=== PATIENT | male | born 1935 | race Asian ===

== ENCOUNTER 2018-07-23 13:33 | Inpatient (IN) | payer MEDICARE, OTHER ==
[~2018-07-23] VITALS: Ht 167.6 cm; Wt 62.1 kg
[2018-07-23 13:33] VITALS: BP 102/49
[~2018-07-23 13:33] MED LIST: ALLOPURINOL300 MG PO; COLACE100 MG PO; DIOVAN HCT 1601 EACH PO; FLOMAX0.4 MG PO; FLONASE1 SPRAYS; GLUCOPHAGE850 MG PO; JANUVIA100 MG PO; LORATADINE10 MG PO; METOPROLOL SUCC25 MG PO; SIMVASTATIN20 MG PO; UNOBMED; VITAMIN473 ML PO
--- NOTE | 2018-07-23 14:06 | Emergency Room Report ---
History of Present Illness General Chief Complaint: Altered Level of Consciousness Source: Medical Record, EMS Present Illness HPI 82-year-old male, with a history of chronic kidney disease, diabetes, cholelithiasis, presenting with 1 day of lethargy. No history is able to be obtained from patient as he is nonverbal at this time. Unknown mental status, but per notes it seems as if patient was alert and speaking complete sentences in the past. The patient is not following any directions, and nonverbal, not opening his eyes. Vital signs at the shelter are normal. No reported fever or chills. Patient is noted to have a wet cough. Allergies: Coded Allergies: No Known Allergies (Verified , 12/28/06) Patient History Past Medical History: see triage record Past Surgical History: none Pertinent Family History: none Reviewed Nursing Documentation: PMH: Agreed; PSxH: Agreed Nursing Documentation-PMH Past Medical History: No History, Except For Hx Cardiac Problems: No Hx Hypertension: Yes Hx Diabetes: Yes Hx Cancer: No Hx Gastrointestinal Problems: No - dysphagia, g-tube Hx Dialysis: No - CKD Hx Neurological Problems: No Review of Systems All Other Systems: limited - nonverbal Physical Exam Vital Signs Date Time Temp Pulse Resp B/P (MAP) Pulse Ox O2 Delivery O2 Flow Rate FiO2 07/23/18 13:21 97.5 94 18 114/61 95 Room Air Sp02 EP Interpretation: reviewed, normal General Appearance: other - Chronically ill-appearing elderly male, eyes closed , moaning incomprehensible sounds Head: normocephalic, atraumatic Eyes: bilateral eye other - Eyes are closed bilaterally, 1 (pupils are equal reactive ENT: normal ENT inspection, normal pharynx, normal voice, moist mucus membranes Neck: normal inspection, full range of motion, supple Respiratory: other - Satting 100% on room air, not tachypnea, crackles in the left lung base Cardiovascular #1: normal inspection, regular rate, rhythm, normal capillary refill Cardiovascular #2: 2+ radial (R), 2+ radial (L) Gastrointestinal: other - Soft, nondistended, PEG tube in place, nonrigid, no grimace to deep palpation normal bowel sounds Musculoskeletal: other - Full passive range of motion, no signs of trauma Neurologic: other - Moaning incomprehensible sounds, not following commands, good motor tone throughout Psychiatric: other Skin: normal inspection, normal color, no rash, warm/dry, well hydrated, normal turgor Procedures Critical Care Time Critical Care Time 40-45 minutes of CC time 82-year-old male, altered mental status, dehydrated, pneumonia Airway patent. Not hypoxic. PLAN: IV access, labs, lactate, troponin, Blood/Urine Cx, Abx, IVF Anticipate admission to Tele vs. DARIUS CC time also includes review of labs, review of EMR, discussion with family and paperwork from SNF, d/w hospitalist CC could include dosing of pressors, additional Abx CC time does not include procedures Medical Decision Making Diagnostic Impression: Primary Impression: HCAP (healthcare-associated pneumonia) Additional Impressions: Dehydration Anemia ER Course 82-year-old male with altered mental status for one day DDX: Dehydration, electrolyte disturbance, UTI, pneumonia, sepsis from any other infectious cause, stroke, intracranial bleed, ACS Plan: Obtain labs, ua, EKG, CXR CT head ER course: Patient has been monitored during ED stay, HD stable given abx for HCAP after fluids now more awake and alert Disposition: Patient is to be admitted to telemetry D/W hospitalist Dr Springer who is made aware of pt. states to put under Dr Moreno name Please note that this Emergency Department Report was dictated using [employer] weeder technology software, occasionally this can lead to erroneous entry secondary to interpretation by the dictation equipment. EKG Diagnostic Results EP Interpretation: Yes Rate: normal Rhythm: NSR ST Segments: Right bundle-branch block, T-wave inversion V2 ASA given to patient: No Rhythm Strip EP Interpretation: Yes Rate: 85 Rhythm: NSR, no PVCs, no ectopy Chest X-ray CXR: Ordered: Yes 1 view Indication: Altered mental status EP interpretation: Yes Interpretation: L sided infiltrate Impression: L sided infiltrate Electronically signed by Artem Peters MD Laboratory Tests Test 07/23/18 13:50 07/23/18 14:50 White Blood Count 22.3 K/UL (4.8-10.8) *H Red Blood Count 2.83 M/UL (4.70-6.10) L Hemoglobin 9.1 G/DL (14.2-18.0) L Hematocrit 28.3 % (42.0-52.0) L Mean Corpuscular Volume 100 FL (80-99) H Mean Corpuscular Hemoglobin 32.2 PG (27.0-31.0) H Mean Corpuscular Hemoglobin Concent 32.3 G/DL (32.0-36.0) Red Cell Distribution Width 13.3 % (11.6-14.8) Platelet Count 219 K/UL (150-450) Mean Platelet Volume 9.2 FL (6.5-10.1) Neutrophils (%) (Auto) % (45.0-75.0) Lymphocytes (%) (Auto) % (20.0-45.0) Monocytes (%) (Auto) % (1.0-10.0) Eosinophils (%) (Auto) % (0.0-3.0) Basophils (%) (Auto) % (0.0-2.0) Differential Total Cells Counted 100 Neutrophils % (Manual) 81 % (45-75) H Lymphocytes % (Manual) 8 % (20-45) L Monocytes % (Manual) 3 % (1-10) Eosinophils % (Manual) 3 % (0-3) Basophils % (Manual) 0 % (0-2) Band Neutrophils 5 % (0-8) Platelet Estimate Adequate Platelet Morphology Normal Red Blood Cell Morphology Normal Sodium Level 157 MMOL/L (136-145) H Potassium Level 5.1 MMOL/L (3.5-5.1) Chloride Level 117 MMOL/L (98-107) H Carbon Dioxide Level 27 MMOL/L (21-32) Anion Gap 13 mmol/L (5-15) Blood Urea Nitrogen 144 mg/dL (7-18) H Creatinine 3.1 MG/DL (0.55-1.30) H Estimate Glomerular Filtration Rate mL/min (>60) Glucose Level 186 MG/DL (74-106) H Lactic Acid Level 1.20 mmol/L (0.4-2.0) Calcium Level 9.0 MG/DL (8.5-10.1) Total Bilirubin 0.4 MG/DL (0.2-1.0) Aspartate Amino Transferase (AST) 53 U/L (15-37) H Alanine Aminotransferase (ALT) 47 U/L (12-78) Alkaline Phosphatase 156 U/L (46-116) H Total Creatine Kinase 83 U/L (26-308) Troponin I 0.008 ng/mL (0.000-0.056) Pro-B-Type Natriuretic Peptide 266 pg/mL (0-125) H Total Protein 9.9 G/DL (6.4-8.2) H Albumin 2.5 G/DL (3.4-5.0) L Globulin 7.4 g/dL Albumin/Globulin Ratio 0.3 (1.0-2.7) L Urine Color Yellow Urine Appearance Clear Urine pH 7 (4.5-8.0) Urine Specific [place] 1.005 (1.005-1.035) Urine Protein 3+ (NEGATIVE) H Urine Glucose (UA) Negative (NEGATIVE) Urine Ketones Negative (NEGATIVE) Urine Blood 4+ (NEGATIVE) H Urine Nitrite Negative (NEGATIVE) Urine Bilirubin Negative (NEGATIVE) Urine Urobilinogen Normal MG/DL (0.0-1.0) Urine Leukocyte Esterase 1+ (NEGATIVE) H Urine RBC 15-20 /HPF (0 - 0) H Urine WBC 2-4 /HPF (0 - 0) Urine Squamous Epithelial Cells Few /LPF (NONE/OCC) Urine Bacteria Few /HPF (NONE) Urine Hyaline Casts Tntc /LPF (NONE) H Microbiology Date/Time Source Procedure Growth Status 07/23/18 14:50 Nasal Nares Influenza Types A,B Antigen (HENNA) - Final Complete CT/MRI/US Diagnostic Results CT/MRI/US Diagnostic Results : Imaging Test Ordered: CT HEAD Impression Impression: No acute intracranial bleed, mass effect or edema. Moderate atrophy of the brain. Evidence of chronic small vessel disease involving white matter tracts. Last Vital Signs Date Time Temp Pulse Resp B/P (MAP) Pulse Ox O2 Delivery O2 Flow Rate FiO2 07/23/18 13:21 97.5 94 18 114/61 95 Room Air Disposition: ADMITTED INPATIENT Condition: Artem Pulido M.D. Jul 23, 2018 14:06
[2018-07-23 14:21] LABS: HEMATOCRIT 28.3 % (42.0-52.0); HEMOGLOBIN 9.1 G/DL (14.2-18.0); MEAN CORPUSCULAR VOLUME 100 FL (80-99); PLATELET COUNT 219 K/UL (150-450); RED BLOOD COUNT 2.83 M/UL (4.70-6.10); RED CELL DISTRIBUTION WIDTH 13.3 % (11.6-14.8)
[2018-07-23 14:23] LABS: WHITE BLOOD COUNT 22.3 K/UL (4.8-10.8)
--- NOTE | 2018-07-23 14:36 | Diagnostic Imaging Report ---
Indication: Altered mental status Technique: Contiguous 5 mm thick transaxial imaging of the head obtained in a Siemens Sensation [address] scanner. Soft tissue and bone windows generated. Automatic Exposure Control was utilized. Total Dose length Product (DLP): 1386.[address] Dose Index Volume (CTDIvol): 70.38 mGy Comparison: 09/18/2010 Findings: There is moderate prominence of the ventricles, basal cisterns, and cerebral sulci consistent with atrophy. Moderate, nonspecific, white matter hypoattenuation is noted throughout the brain consistent with chronic small vessel disease. There is no midline shift, edema, acute hemorrhage, mass effect, or abnormal extra-axial fluid collections. Bones and extra osseous soft tissues are unremarkable. Impression: No acute intracranial bleed, mass effect or edema. Moderate atrophy of the brain. Evidence of chronic small vessel disease involving white matter tracts. The CT scanner at [facility] is accredited by the [employer] and the scans are performed using dose optimization techniques as appropriate to a performed exam including Automatic Exposure control.
[2018-07-23 14:37] LABS: ANION GAP 13 mmol/L (5-15); BLOOD UREA NITROGEN 144 mg/dL (7-18); CARBON DIOXIDE 27 MMOL/L (21-32); CHLORIDE 117 MMOL/L (98-107); CREATININE 3.1 MG/DL (0.55-1.30); POTASSIUM 5.1 MMOL/L (3.5-5.1); SODIUM 157 MMOL/L (136-145)
[2018-07-23] MEDS ORDERED: Piperacillin/Tazobactam 3.375 GM in NS 55 ML IV ONE (14:45)
[2018-07-23] MEDS ORDERED: Vancomycin 1 GM in NS 275 ML IVPB ONE (14:45)
[2018-07-23 14:50] LABS: ALANINE AMINOTRANSFERASE 47 U/L (12-78); ALBUMIN 2.5 G/DL (3.4-5.0); ALBUMIN/GLOBULIN RATIO 0.3 (1.0-2.7); ALKALINE PHOSPHATASE 156 U/L (46-116); ASPARTATE AMINO TRANSFERASE 53 U/L (15-37); BILIRUBIN,TOTAL 0.4 MG/DL (0.2-1.0); CREATINE KINASE 83 U/L (26-308)
[2018-07-23 15:00] VITALS: BP 116/49
[2018-07-23 15:06] LABS: APPEARANCE,URINE CLEAR; BILIRUBIN, URINE NEGATIVE (NEGATIVE); COLOR,URINE YELLOW; GLUCOSE, URINE (UA) NEGATIVE (NEGATIVE); KETONES,URINE NEGATIVE (NEGATIVE); LEUKOCYTE ESTERASE ,URINE 1+ (NEGATIVE); NITRITE,URINE NEGATIVE (NEGATIVE); PH,URINE 7 (4.5-8.0); PROTEIN,URINE 3+ (NEGATIVE); UROBILINOGEN,URINE NORMAL MG/DL (0.0-1.0)
[2018-07-23] MEDS ORDERED: METOCLOPRA10 MG/10 M ORAL (15:42)
[2018-07-23] MEDS ORDERED: NOVOLOG100 UNIT/3 SUBQ (15:42)
[2018-07-23] MEDS ORDERED: PROTONIX20 MG ORAL (15:42)
[2018-07-23 16:16] VITALS: BP 117/39
--- NOTE | 2018-07-23 16:26 | Diagnostic Imaging Report ---
Indication: Dyspnea Comparison: 08/03/2012 A single view chest radiograph was obtained. Findings: Basilar reticular densities are present left worse than right, chronic in nature and unchanged. Heart size is within normal limits. Bones are osteopenic. Aorta is moderately calcified. IMPRESSION: No acute disease. 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
[2018-07-23 18:22] VITALS: BP 121/50
[2018-07-23 20:31] VITALS: BP 110/56
[2018-07-23] MEDS: NovoLOG Insulin Flexpen SUBQ SCH (22:23)
[2018-07-23] MEDS: Piperacillin/Tazobactam 2.25 GM in D5W 55 ML IVPB SCH (22:24)
[2018-07-23] MEDS: Heparin 5000 units/ml inj SUBQ SCH (23:17)
--- NOTE | 2018-07-23 23:30 | History and Physical Report ---
DATE OF ADMISSION: 07/23/2018 REASON FOR ADMISSION: Altered mental status. HISTORY OF PRESENT ILLNESS: This is a unfortunate 82-year-old gentleman patient of Dr. Ann López that I am covering for, has history of type 2 diabetes mellitus, hypertension, and chronic kidney disease has been brought to the emergency room of [facility] after he was found to have altered mental status. In the emergency room, white count was checked at about 22,000. Also has had elevation of BUN and creatinine in the range of 103.1 and also had a serum sodium of 157. He is not able to give me a very fruitful history, there is nobody with him. He is living in a longterm apparently. PAST MEDICAL HISTORY: Significant for previous gallstone pancreatitis, upper GI bleed, choledocholithiasis, chronic kidney disease, type 2 diabetes, spinal stenosis, rheumatoid arthritis, dysphagia, and underlying dementia. PAST SURGICAL HISTORY: Seems like he had common bile duct dilation and cholecystectomy, also has had surgery for small bowel obstruction. He also has had a G-tube placement. SOCIAL HISTORY: [facility] a [facility]. Smoking or drinking habits are unknown to me. MEDICATIONS: Prior to admission allopurinol 300 mg p.o. daily, docusate 100 mg p.o. b.i.d., Flonase one spray in each nostril daily, loratadine 10 mg p.o. daily, metformin 850 mg p.o. daily, metoclopramide 10 mg p.o. q.8 hours p.r.n., metoprolol 25 mg p.o. daily, pantoprazole 40 mg p.o. daily, simvastatin 20 mg p.o. daily, Januvia 100 mg p.o. daily, Flomax 0.4 mg p.o. daily, valsartan and hydrochlorothiazide 160/12.5 mg p.o. daily. REVIEW OF SYSTEMS: Impossible since he is not able to give me a very fruitful history. PHYSICAL EXAMINATION: GENERAL: This is a very frail looking elderly lying down in the cart of the emergency room. VITAL SIGNS: Blood pressure is 121/50, pulse 77, respirations , temperature HEENT: Head is atraumatic. Eyes, pupils reactive to light. No evidence of papilledema. Ears, canals are clear. Tympanic membrane intact. NECK: Supple. Jugular venous distention is somewhat low. No cervical adenopathies. No thyromegaly. HEART: Regular rhythm. No gallop. LUNGS: Few rhonchi in both bases. ABDOMEN: Supple. Bowel sounds positive. G-tube in place. No hepatosplenomegaly. EXTREMITIES: Lower extremity shows no cyanosis or clubbing. No pedal edema. NEUROLOGICAL: He is somewhat lethargic and obtunded. Moving all 4 extremities nevertheless . LABORATORY DATA: Shows a WBC of 22.3, hemoglobin 9.1, hematocrit 28.3, and platelets of 219, 81% neutrophils, 8% lymphocytes. Sodium 157, potassium 5.1, chloride 117, carbon dioxide 27, BUN 144, creatinine is 3.1. Albumin is 2.5. Alkaline phosphatase is 156. Chest x-ray showing an interstitial infiltrate in the base of the left lung mostly. A urinalysis on him is showing 1+ leukocyte esterase, 2 to 4 wbc's, 15 to 20 rbc's, too numerous to count hyaline casts, 3+ protein. IMPRESSION: 1. Evidence of sepsis with significant leukocytosis, I am suspecting pneumonia, possibly aspiration pneumonia. 2. Acute kidney injury with azotemia due to combination of underlying sepsis plus hypovolemia plus the fact that he has been on an ARB. 3. Severe hypernatremia. 4. Underlying dementia. PLAN: He is going to be admitted to the telemetry floor. We are going to hydrate him with IV fluids, IV antibiotics with vancomycin and Zosyn is in order. We will follow the evolution of the kidney function. Tyrone Brown M.D. DR: Debra JOB#: [id number] CC:
[2018-07-24] VITALS: BP 117/50
[2018-07-24 04:00] VITALS: BP 112/56
[2018-07-24] MEDS: Piperacillin/Tazobactam 2.25 GM in D5W 55 ML IVPB SCH ×3 (05:36→21:01)
[2018-07-24] MEDS: NovoLOG Insulin Flexpen SUBQ SCH ×4 (05:37→20:50)
[2018-07-24 08:00] VITALS: BP 116/50
[2018-07-24 08:29] LABS: HEMATOCRIT 23.1 % (42.0-52.0); HEMOGLOBIN 7.6 G/DL (14.2-18.0); MEAN CORPUSCULAR VOLUME 99 FL (80-99); PLATELET COUNT 196 K/UL (150-450); RED BLOOD COUNT 2.33 M/UL (4.70-6.10); RED CELL DISTRIBUTION WIDTH 13.1 % (11.6-14.8); WHITE BLOOD COUNT 12.6 K/UL (4.8-10.8)
[2018-07-24] MEDS: Heparin 5000 units/ml inj SUBQ SCH ×2 (08:46→20:49)
[2018-07-24 09:07] LABS: ALANINE AMINOTRANSFERASE 33 U/L (12-78); ALBUMIN 1.9 G/DL (3.4-5.0); ALBUMIN/GLOBULIN RATIO 0.3 (1.0-2.7); ALKALINE PHOSPHATASE 120 U/L (46-116); ANION GAP 12 mmol/L (5-15); ASPARTATE AMINO TRANSFERASE 29 U/L (15-37); BILIRUBIN,TOTAL 0.3 MG/DL (0.2-1.0); BLOOD UREA NITROGEN 105 mg/dL (7-18); CALCIUM 7.7 MG/DL (8.5-10.1); CARBON DIOXIDE 23 MMOL/L (21-32); CHLORIDE 126 MMOL/L (98-107); CREATININE 2.4 MG/DL (0.55-1.30); POTASSIUM 4.3 MMOL/L (3.5-5.1)
[2018-07-24 09:09] LABS: SODIUM 162 MMOL/L (136-145)
[2018-07-24] MEDS ORDERED: Vancomycin 1gm/D5W 275ml IVPB ONE ×2 (11:00)
[2018-07-24 12:00] VITALS: BP 112/61
[2018-07-24 16:00] VITALS: BP 120/86
[2018-07-24 20:00] VITALS: BP 124/61
--- NOTE | 2018-07-24 21:30 | General Progress Note ---
Assessment/Plan Assessment/Plan 1) CORIN has improved 2) Hypernatremia with water deficit of 5.5 L 3) Aspiration PNA is better 4) No CHF Plan: Will change IV to D5W at 125cc/hour Continue IV ATB's Subjective Allergies: Coded Allergies: No Known Allergies (Verified , 12/28/06) Subjective He is more alert, NA is 162, Creat is down to 2.4, no distress Objective Last 24 Hour Vital Signs Date Time Temp Pulse Resp B/P (MAP) Pulse Ox O2 Delivery O2 Flow Rate FiO2 07/24/18 20:00 84 07/24/18 20:00 97.5 84 19 124/61 (82) 99 07/24/18 16:21 85 07/24/18 16:00 97.6 81 17 120/86 (97) 98 07/24/18 12:02 83 07/24/18 12:00 98.0 80 18 112/61 (78) 99 07/24/18 09:00 Room Air 07/24/18 08:00 98.1 79 18 116/50 (72) 100 07/24/18 07:52 79 07/24/18 04:00 82 07/24/18 04:00 97.0 82 20 112/56 (74) 100 07/24/18 00:00 97.4 79 20 117/50 (72) 99 07/24/18 00:00 75 07/23/18 22:42 98.7 82 16 115/50 100 Room Air 82 07/23/18 21:28 Room Air Intake and Output 07/23/18 07/24/18 19:00 07:00 Intake Total 2055 ml 1690 ml Balance 2055 ml 1690 ml Intake Oral 0 ml 0 ml Free Water 120 ml IV Total 2055 ml 1150 ml Tube Feeding 420 ml # Bowel Movements 1 Laboratory Tests 07/24/18 06:55: White Blood Count 12.6H, Red Blood Count 2.33L, Hemoglobin 7.6L, Hematocrit 23.1L, Mean Corpuscular Volume 99, Mean Corpuscular Hemoglobin 32.6H, Mean Corpuscular Hemoglobin Concent 32.8, Red Cell Distribution Width 13.1, Platelet Count 196, Mean Platelet Volume 8.0, Neutrophils (%) (Auto) , Lymphocytes (%) ( Auto) , Monocytes (%) (Auto) , Eosinophils (%) (Auto) , Basophils (%) (Auto) , Differential Total Cells Counted 100, Neutrophils % (Manual) 87H, Lymphocytes % (Manual) 11L, Monocytes % (Manual) 2, Eosinophils % (Manual) 0, Basophils % ( Manual) 0, Band Neutrophils 0, Platelet Estimate Adequate, Platelet Morphology Normal, Hypochromasia , Sodium Level 162*H, Potassium Level 4.3, Chloride Level 126H, Carbon Dioxide Level 23, Anion Gap 12, Blood Urea Nitrogen 105H, Creatinine 2.4H, Estimat Glomerular Filtration Rate , Glucose Level 146H, Calcium Level 7.7L, Total Bilirubin 0.3, Aspartate Amino Transf (AST/SGOT) 29, Alanine Aminotransferase (ALT/SGPT) 33, Alkaline Phosphatase 120H, Total Protein 7.5, Albumin 1.9L, Globulin 5.6, Albumin/Globulin Ratio 0.3L, Random Vancomycin Level 11.8 Height (Feet): 5 Height (Inches): 7.00 Weight (Pounds): 130 General Appearance: WD/WN EENT: PERRL/EOMI Neck: non-tender, normal alignment, supple Cardiovascular: no JVD Respiratory/Chest: rhonchi - bilaterally Abdomen: normal bowel sounds, non tender Neurologic: no motor/sensory deficits Tyrone Brown MD Jul 24, 2018 21:30
[2018-07-25] VITALS: BP 129/56
[2018-07-25 04:00] VITALS: BP 123/62
[2018-07-25] MEDS: Piperacillin/Tazobactam 2.25 GM in D5W 55 ML IVPB SCH ×3 (05:35→17:13)
[2018-07-25] MEDS: NovoLOG Insulin Flexpen SUBQ SCH ×4 (05:36→20:43)
[2018-07-25 07:21] LABS: ANION GAP 10 mmol/L (5-15); BLOOD UREA NITROGEN 69 mg/dL (7-18); CALCIUM 7.8 MG/DL (8.5-10.1); CARBON DIOXIDE 23 MMOL/L (21-32); CHLORIDE 116 MMOL/L (98-107); SODIUM 149 MMOL/L (136-145)
[2018-07-25 07:36] LABS: HEMATOCRIT 21.6 % (42.0-52.0); MEAN CORPUSCULAR VOLUME 98 FL (80-99); PLATELET COUNT 166 K/UL (150-450); RED BLOOD COUNT 2.21 M/UL (4.70-6.10); RED CELL DISTRIBUTION WIDTH 12.6 % (11.6-14.8); WHITE BLOOD COUNT 11.1 K/UL (4.8-10.8)
[2018-07-25 08:00] VITALS: BP 139/63
[2018-07-25] MEDS: Heparin 5000 units/ml inj SUBQ SCH ×2 (08:42→20:42)
[2018-07-25 12:00] VITALS: BP 117/56
[2018-07-25 16:00] VITALS: BP 128/56
[2018-07-25 20:00] VITALS: BP 124/51
[2018-07-25] MEDS ORDERED: Levemir Flexpen SUBQ SCH (21:00)
--- NOTE | 2018-07-25 22:25 | General Progress Note ---
Assessment/Plan Assessment/Plan 1) CORIN is improving 2) Hypernatremia improved 3) Aspiration PNA is better 4) No CHF Plan: Decrease DW to 50 cc/hr Continue IV ATB's Will give Levemire 12 units SQ today Subjective Allergies: Coded Allergies: No Known Allergies (Verified , 12/28/06) Subjective He is more alert, NA is 149, wbc is down to 11K, creat is 2.0, BG in 150-230's Objective Last 24 Hour Vital Signs Date Time Temp Pulse Resp B/P (MAP) Pulse Ox O2 Delivery O2 Flow Rate FiO2 07/25/18 21:00 Room Air 07/25/18 20:00 98.4 77 20 124/51 (75) 100 07/25/18 16:09 86 07/25/18 16:00 97.2 86 19 128/56 (80) 100 07/25/18 12:00 99.0 87 20 117/56 (76) 98 07/25/18 11:57 85 07/25/18 09:00 Room Air 07/25/18 08:00 98.3 87 20 139/63 (88) 100 07/25/18 07:53 89 07/25/18 04:00 97.7 74 20 123/62 (82) 99 07/25/18 04:00 83 07/25/18 00:00 83 07/25/18 00:00 97.0 86 19 129/56 (80) 100 Intake and Output 07/24/18 07/25/18 19:00 07:00 Intake Total 2140 ml 2025 ml Balance 2140 ml 2025 ml Free Water 130 ml 60 ml IV Total 1350 ml 1305 ml Tube Feeding 660 ml 660 ml # Voids 3 # Bowel Movements 1 3 Laboratory Tests 07/25/18 05:50: White Blood Count 11.1H, Red Blood Count 2.21L, Hemoglobin 7.0L, Hematocrit 21.6L, Mean Corpuscular Volume 98, Mean Corpuscular Hemoglobin 31.9H, Mean Corpuscular Hemoglobin Concent 32.6, Red Cell Distribution Width 12.6, Platelet Count 166, Mean Platelet Volume 8.4, Neutrophils (%) (Auto) , Lymphocytes (%) ( Auto) , Monocytes (%) (Auto) , Eosinophils (%) (Auto) , Basophils (%) (Auto) , Differential Total Cells Counted 100, Neutrophils % (Manual) 81H, Lymphocytes % (Manual) 10L, Monocytes % (Manual) 5, Eosinophils % (Manual) 4H, Basophils % ( Manual) 0, Band Neutrophils 0, Platelet Estimate Adequate, Platelet Morphology Normal, Red Blood Cell Morphology Normal, Sodium Level 149#H, Potassium Level 4.0, Chloride Level 116H, Carbon Dioxide Level 23, Anion Gap 10, Blood Urea Nitrogen 69H, Creatinine 2.0H, Estimat Glomerular Filtration Rate , Glucose Level 281#H, Calcium Level 7.8L Height (Feet): 5 Height (Inches): 7.00 Weight (Pounds): 130 General Appearance: WD/WN, no apparent distress EENT: PERRL/EOMI Neck: non-tender, normal alignment Cardiovascular: normal rate, no JVD Respiratory/Chest: lungs clear Abdomen: normal bowel sounds, non tender Extremities: non-tender Neurologic: disoriented Tyrone Brown MD Jul 25, 2018 22:25
[2018-07-26] VITALS: BP 118/98
[2018-07-26] MEDS: Piperacillin/Tazobactam 2.25 GM in D5W 55 ML IVPB SCH ×2 (00:17→05:41)
[2018-07-26 04:00] VITALS: BP 106/46
[2018-07-26] MEDS: NovoLOG Insulin Flexpen SUBQ SCH ×3 (05:41→17:12)
[2018-07-26 07:03] LABS: HEMATOCRIT 20.7 % (42.0-52.0); MEAN CORPUSCULAR VOLUME 95 FL (80-99); PLATELET COUNT 171 K/UL (150-450); RED BLOOD COUNT 2.17 M/UL (4.70-6.10); RED CELL DISTRIBUTION WIDTH 11.9 % (11.6-14.8); WHITE BLOOD COUNT 8.6 K/UL (4.8-10.8)
[2018-07-26 07:25] LABS: ALANINE AMINOTRANSFERASE 23 U/L (12-78); ALBUMIN 1.6 G/DL (3.4-5.0); ALBUMIN/GLOBULIN RATIO 0.3 (1.0-2.7); ALKALINE PHOSPHATASE 104 U/L (46-116); ANION GAP 7 mmol/L (5-15); ASPARTATE AMINO TRANSFERASE 26 U/L (15-37); BILIRUBIN,TOTAL 0.3 MG/DL (0.2-1.0); BLOOD UREA NITROGEN 46 mg/dL (7-18); CALCIUM 7.7 MG/DL (8.5-10.1); CARBON DIOXIDE 24 MMOL/L (21-32); CHLORIDE 110 MMOL/L (98-107); CREATININE 1.6 MG/DL (0.55-1.30); POTASSIUM 4.1 MMOL/L (3.5-5.1); SODIUM 140 MMOL/L (136-145)
[2018-07-26 08:00] VITALS: BP 129/57
[2018-07-26 08:13] LABS: % IRON SATURATION 23 % (15-50); IRON 39 ug/dL (50-175); TOTAL IRON BINDING CAPACITY 171 ug/dL (250-450)
[2018-07-26] MEDS: Heparin 5000 units/ml inj SUBQ SCH ×2 (09:00→21:00)
[2018-07-26] MEDS ORDERED: Vancomycin 1gm/D5W 275ml IVPB SCH ×2 (11:00)
--- NOTE | 2018-07-26 11:43 | General Progress Note ---
Assessment/Plan Assessment/Plan 1) CORIN is improving 2) Hypernatremia improved 3) Aspiration PNA is better 4) Anemia 5) No Iron deficiency 6) He is volume repleted Plan: D/C D5W Transfuse 1 unit of blood Lasix 80 mg IV post blod transfusion Check CXR Continue IV ATB's Continue Levemire 12 units SQ today Subjective Allergies: Coded Allergies: No Known Allergies (Verified , 12/28/06) Subjective He is doing better, creat is down to 1.6, WBC is 8.6K, HGB is 7.0, Iron sat is 23% with Ferritin of 501. Objective Last 24 Hour Vital Signs Date Time Temp Pulse Resp B/P (MAP) Pulse Ox O2 Delivery O2 Flow Rate FiO2 07/26/18 09:00 Room Air 07/26/18 08:00 97.9 68 18 129/57 (81) 100 07/26/18 07:57 64 07/26/18 04:00 63 07/26/18 04:00 98.6 76 20 106/46 (66) 100 07/26/18 00:00 75 07/26/18 00:00 98.1 74 20 118/98 (105) 100 07/25/18 21:00 Room Air 07/25/18 20:00 70 07/25/18 20:00 98.4 77 20 124/51 (75) 100 07/25/18 16:09 86 07/25/18 16:00 97.2 86 19 128/56 (80) 100 07/25/18 12:00 99.0 87 20 117/56 (76) 98 07/25/18 11:57 85 Intake and Output 07/25/18 07/26/18 19:00 07:00 Intake Total 2360 ml 1249 ml Balance 2360 ml 1249 ml Free Water 80 ml 60 ml IV Total 1500 ml 589 ml Tube Feeding 780 ml 600 ml # Voids 1 # Bowel Movements 2 1 Laboratory Tests 07/26/18 04:55: White Blood Count 8.6, Red Blood Count 2.17L, Hemoglobin 7.0L, Hematocrit 20.7L , Mean Corpuscular Volume 95, Mean Corpuscular Hemoglobin 32.3H, Mean Corpuscular Hemoglobin Concent 33.8, Red Cell Distribution Width 11.9, Platelet Count 171, Mean Platelet Volume 8.2, Neutrophils (%) (Auto) , Lymphocytes (%) ( Auto) , Monocytes (%) (Auto) , Eosinophils (%) (Auto) , Basophils (%) (Auto) , Differential Total Cells Counted 100, Neutrophils % (Manual) 74, Lymphocytes % ( Manual) 15L, Monocytes % (Manual) 3, Eosinophils % (Manual) 7H, Basophils % ( Manual) 0, Band Neutrophils 1, Platelet Estimate Adequate, Platelet Morphology Normal, Red Blood Cell Morphology Normal, Sodium Level 140, Potassium Level 4.1 , Chloride Level 110H, Carbon Dioxide Level 24, Anion Gap 7, Blood Urea Nitrogen 46H, Creatinine 1.6H, Estimat Glomerular Filtration Rate , Glucose Level 132#H, Calcium Level 7.7L, Iron Level 39L, Total Iron Binding Capacity 171L, Percent Iron Saturation 23, Unsaturated Iron Binding 132, Ferritin 501H, Total Bilirubin 0.3, Aspartate Amino Transf (AST/SGOT) 26, Alanine Aminotransferase (ALT/SGPT) 23, Alkaline Phosphatase 104, Total Protein 6.8, Albumin 1.6L, Globulin 5.2, Albumin/Globulin Ratio 0.3L, Random Vancomycin Level 11.7 Height (Feet): 5 Height (Inches): 7.00 Weight (Pounds): 130 General Appearance: WD/WN, no apparent distress EENT: PERRL/EOMI Neck: non-tender Respiratory/Chest: chest wall non-tender, rhonchi - bilaterally Edema: mild edema 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
[2018-07-26 12:00] VITALS: BP 130/63
[2018-07-26] MEDS ORDERED: Zosyn 3.375gm q8h **Extended infusion IVPB SCH ×2 (12:00)
[2018-07-26 16:00] VITALS: BP 126/62
[2018-07-26 20:00] VITALS: BP 135/62
[2018-07-26] MEDS ORDERED: Levemir Flexpen SUBQ SCH (21:00)
[2018-07-26] MEDS: Piperacillin/Tazobactam 3.375 GM in NS 110 ML IVPB SCH (21:38)
[2018-07-26] MEDS: Levemir Flexpen SUBQ SCH (21:44)
[2018-07-27] VITALS: BP 130/60
[2018-07-27] MEDS ORDERED: NovoLOG Insulin Flexpen SUBQ SCH
[2018-07-27] MEDS: NovoLOG Insulin Flexpen SUBQ SCH ×4 (00:06→18:18)
[2018-07-27 04:00] VITALS: BP 132/70
[2018-07-27] MEDS: Piperacillin/Tazobactam 3.375 GM in NS 110 ML IVPB SCH ×3 (05:26→22:48)
[2018-07-27 08:00] VITALS: BP 146/67
[2018-07-27] MEDS: Heparin 5000 units/ml inj SUBQ SCH ×2 (08:45→21:31)
[2018-07-27 12:00] VITALS: BP 128/53
--- NOTE | 2018-07-27 13:11 | Diagnostic Imaging Report ---
Indication: Dyspnea Comparison: 07/23/2018 A single view chest radiograph was obtained. Findings: Basilar reticular densities is again noted likely chronic. This appears worse on the left. Heart size is borderline enlarged and stable. Aorta is calcified. Bones are osteopenic. IMPRESSION: No acute findings. 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
[2018-07-27] MEDS ORDERED: Tubing IV Secondary IV ONE (14:59)
[2018-07-27] MEDS ORDERED: 1/2 NS 1000ml IV ONE (14:59)
[2018-07-27] MEDS ORDERED: NS 275ml ONE (14:59)
--- NOTE | 2018-07-27 15:08 | Nephrology Progress Note ---
Assessment/Plan Plan CORIN - Improving with IVF Hypernatremia - improving with IVF. Anemia of CKD - transfuse. HCT 20!. Start ALEAH + IV Iron. Subjective Subjective Confused Objective Objective Last 24 Hour Vital Signs Date Time Temp Pulse Resp B/P (MAP) Pulse Ox O2 Delivery O2 Flow Rate FiO2 07/27/18 12:00 97.4 84 19 128/53 (78) 99 07/27/18 09:00 Nasal Cannula 2.0 07/27/18 08:00 97.8 84 19 146/67 (93) 99 07/27/18 04:00 98.1 85 20 132/70 (90) 98 07/27/18 00:00 98.2 70 16 130/60 (83) 99 07/26/18 21:00 Nasal Cannula 2.0 07/26/18 20:00 74 07/26/18 20:00 97.9 78 18 135/62 (86) 100 07/26/18 16:36 69 07/26/18 16:00 97.7 80 20 126/62 (83) 100 Intake and Output 07/26/18 07/27/18 19:00 07:00 Intake Total 810 ml 1180.0 ml Output Total 450 ml Balance 360 ml 1180.0 ml Free Water 150 ml 60 ml IV Total 460.0 ml Tube Feeding 660 ml 660 ml Output Urine Total 450 ml # Voids 1 # Bowel Movements 2 1 Laboratory Tests 07/26/18 21:05: Urine Random Total Protein 91H, Urine Creatinine 40.0 Height (Feet): 5 Height (Inches): 7.00 Weight (Pounds): 130 Objective CV RR Lungs CTA Abd SNT. BS + E No CCE Ann López MD Jul 27, 2018 15:08
--- NOTE | 2018-07-27 15:52 | GI Initial Consult Note ---
History of Present Illness General Date patient seen: Jul 27, 2018 Time patient seen: 15:39 Reason for Hospitalization: Altered Level of Consciousness Referring physician: SUSANNE ALDRIDGE Reason for Consultation: ANEMIA Present Illness HPI This is a unfortunate 82-year-old gentleman with history of type 2 diabetes mellitus, hypertension, and chronic kidney disease has been brought to the emergency room of [facility] after he was found to have altered mental status. In the emergency room, white count was checked at about 22,000. Also has had elevation of BUN and creatinine in the range of 103.1 and also had a serum sodium of 157. He is living in a longterm apparently. GI consulted for anemia. ROS limited, patient non verbal G tube dependent. NAD with no active s/sx of N/V/D. No reports of any active bleeding at this time. Labs reviewed show anemia with low anemia. Had previous leukocytosis 3 days ago, but now normal. No iron deficiency noted with normal ferritin. Unknown history of colonoscopy at this time. Home Meds Reported Medications Metoclopramide Hcl* (METOCLOPRAMIDE HCL*) 10 Mg/10 Ml Solution, 10 MG ORAL EVERY 8 HOURS, ML 07/23/18 Insulin Aspart* (NOVOLOG*) 100 Unit/1 Ml Insuln.pen, 0 SUBQ BEFORE MEALS, #1 EA 0 Refills 07/23/18 Pantoprazole Sodium (PROTONIX) 20 Mg Tablet.dr, 40 MG ORAL DAILY, TAB 07/23/18 Loratadine (LORATADINE) 10 Mg Tablet, 10 MG PO 07/24/12 Allopurinol* (ZYLOPRIM*) 300 Mg Tablet, 300 MG PO DAILY 07/24/12 Metformin Hcl* (GLUCOPHAGE*) 850 Mg Tablet, 850 MG PO DAILY, #10 TAB Take 1 tablet by mouth every day. 07/24/12 Docusate Sodium* (COLACE*) 100 Mg Capsule, 100 MG PO DAILY, #10 CAP Take 1 capsule by mouth daily to soften stools. 07/24/12 Valsartan/Hydrochlorothiazide 160-12.5MG (DIOVAN HCT 160-12.5 MG TAB) 1 Each Tablet, 1 EACH PO 07/24/12 Metoprolol Succinate* (METOPROLOL SUCCINATE*) 25 Mg Tab.er.24h, 25 MG PO DAILY, #30 TAB Take one tablet by mouth daily 07/24/12 Sitagliptin (Januvia) 100 Mg Tab, 100 MG PO DAILY 07/24/12 Fluticasone Propionate (Fluticasone Propionate) 1 Sprays Naspr, 1 SPRAYS NA 07/24/12 Tamsulosin HCl (Flomax) 0.4 Mg Cap, 0.4 MG PO DAILY, #5 TAB Take 1 tablet by mouth daily for 5 days. 07/23/12 Simvastatin (ZOCOR) 20 Mg Tablet, 20 MG PO QHS 07/23/12 Multivitamin (VITAMIN) 473 Ml Liquid, ML PO 07/23/12 Unable to Obtain Medications (UNABLE TO OBTAIN MEDS) 1 Ea Ea 07/23/12 Med list reviewed/reconciled: Yes Allergies: Coded Allergies: No Known Allergies (Verified , 12/28/06) Patient History Limited by: medical condition History Provided By: Medical Record [facility] Narrative PAST MEDICAL HISTORY: Significant for previous gallstone pancreatitis, upper GI bleed, choledocholithiasis, chronic kidney disease, type 2 diabetes, spinal stenosis, rheumatoid arthritis, dysphagia, and underlying dementia. PAST SURGICAL HISTORY: Seems like he had common bile duct dilation and cholecystectomy, also has had surgery for small bowel obstruction. He also has had a G-tube placement. Social History: Denies: smoking, alcohol use, drug use, other Review of Systems All Other Systems: negative except mentioned in HPI Physical Exam Vital Signs Date Time Temp Pulse Resp B/P (MAP) Pulse Ox O2 Delivery O2 Flow Rate FiO2 07/23/18 13:21 97.5 94 18 114/61 95 Room Air 07/26/18 21:00 2.0 Sp02 EP Interpretation: reviewed, normal Labs Laboratory Tests Test 07/26/18 21:05 Urine Random Total Protein 91 MG/DL (< 11.9) H Urine Creatinine 40.0 MG/DL (30.0-125.0) General Appearance: no apparent distress Head: normocephalic EENT: PERRL/EOMI, normal ENT inspection Neck: supple Respiratory: normal breath sounds, no respiratory distress Cardiovascular: normal rate Gastrointestinal: normal inspection, non tender, soft, normal bowel sounds, non -distended, gt - c/d/i Rectal: deferred Genitourinary: deferred Neurologic: alert Psychiatric: memory normal Skin: normal inspection, normal color, no rash, warm/dry, palpation normal, well hydrated Lymphatic: normal inspection, no adenopathy Current Medications Current Medications Medications (Trade) Dose Ordered Sig/Jarrod Route PRN Reason Start Time Stop Time Status Last Admin Dose Admin Dextrose 1,000 ml @ 50 mls/hr Q20H IV 07/26/18 21:30 08/23/18 21:29 07/26/18 21:44 Dextrose (Dextrose 50%) 25 ml Q30M PRN IV Hypoglycemia 07/26/18 21:09 08/22/18 21:08 Dextrose (Dextrose 50%) 50 ml Q30M PRN IV Hypoglycemia 07/26/18 21:09 08/22/18 21:08 Epoetin Juwan (Procrit (for non ESRD use)) 10,000 units MON-FRI-FRI SUBQ 07/27/18 21:00 08/26/18 20:59 Heparin Sodium (Porcine) (Heparin 5000 units/ml) 5,000 units EVERY 12 HOURS SUBQ 07/26/18 21:00 08/22/18 22:29 Insulin Aspart (NovoLOG) EVERY 6 HOURS SUBQ 07/27/18 00:00 08/22/18 20:59 07/27/18 12:16 Insulin Detemir (Levemir) 12 units BEDTIME SUBQ 07/26/18 21:00 08/25/18 20:59 07/26/18 21:44 Piperacillin Sod/ Tazobactam Sod 3.375 gm/Sodium Chloride 110 ml @ 27.5 mls/hr EVERY 8 HOURS IVPB 07/26/18 22:00 07/31/18 11:59 07/27/18 15:11 Vancomycin HCl (Vanco rx to dose) 1 ea DAILY PRN MISC Per rx protocol 07/26/18 21:10 08/25/18 21:09 Vancomycin HCl 1 gm/Dextrose 275 ml @ 183.708 mls/hr Q48H IVPB 07/28/18 11:00 07/31/18 10:59 GI: Plan Problems: (1) Anemia (2) Dehydration (3) HCAP (healthcare-associated pneumonia) Plan hold venofer >> no iron deficiency, high ferritin levels monitor H&H, prn transfusion prevacid GT OB stool r/o GI bleed anemia work up GTFs per RD, increase to goal will consider endoscopy/colonoscopy if necessary fu labs Discussed with Dr. Brooks. Thank you for this patient referral, we will follow. The patient was seen and examined at bedside and all new and available data was reviewed in the patients chart. I agree with the above findings, impression and plan. (Patient seen earlier today. Signature stamp does not reflect patient encounter time.). - MD Graciela SanzIdalia-Wilman KAY Jul 27, 2018 15:52
[2018-07-27 16:00] VITALS: BP 131/57
[2018-07-27 20:00] VITALS: BP 132/56
[2018-07-27] MEDS ORDERED: Iron Sucrose 100 MG in NS 55 ML IV SCH (21:00)
[2018-07-27] MEDS: Epogen (for non ESRD use) SUBQ SCH (21:30)
[2018-07-27] MEDS: Levemir Flexpen SUBQ SCH (21:32)
[2018-07-28] VITALS (7 sets, daily range): BP systolic 121–151; BP diastolic 51–74
[2018-07-28] MEDS: NovoLOG Insulin Flexpen SUBQ SCH ×5 (00:04→23:28)
[2018-07-28] MEDS: Piperacillin/Tazobactam 3.375 GM in NS 110 ML IVPB SCH ×3 (05:09→22:49)
[2018-07-28 06:17] LABS: HEMATOCRIT 19.7 % (42.0-52.0); MEAN CORPUSCULAR VOLUME 93 FL (80-99); PLATELET COUNT 199 K/UL (150-450); RED BLOOD COUNT 2.11 M/UL (4.70-6.10); RED CELL DISTRIBUTION WIDTH 12.2 % (11.6-14.8)
[2018-07-28 06:28] LABS: HEMOGLOBIN 6.9 G/DL (14.2-18.0)
[2018-07-28 06:42] LABS: ANION GAP 8 mmol/L (5-15); BLOOD UREA NITROGEN 35 mg/dL (7-18); CALCIUM 8.4 MG/DL (8.5-10.1); CARBON DIOXIDE 26 MMOL/L (21-32); CHLORIDE 108 MMOL/L (98-107); CREATININE 1.6 MG/DL (0.55-1.30); POTASSIUM 4.5 MMOL/L (3.5-5.1); SODIUM 141 MMOL/L (136-145)
[2018-07-28] MEDS: Heparin 5000 units/ml inj SUBQ SCH ×2 (09:00→20:24)
[2018-07-28] MEDS: Vancomycin 1 GM in D5W 275 ML IVPB SCH (13:11)
--- NOTE | 2018-07-28 13:32 | GI Progress Note ---
Assessment/Plan Problems: (1) G tube feedings ICD Codes: Z93.1 - Gastrostomy status SNOMED: 698146239, 833450784 (2) Dehydration ICD Codes: E86.0 - Dehydration SNOMED: 75038034 (3) Anemia ICD Codes: D64.9 - Anemia, unspecified SNOMED: 472778332 Status: stable, unchanged Status Narrative Discussed with Dr. Brooks. Assessment/Plan hold venofer >> no iron deficiency, high ferritin levels gastric lavage r/o UGIB >> will scheduled endoscopy if positive lopid monitor H&H, prn transfusion prevacid GT OB stool r/o GI bleed anemia work up GTFs per RD, increase to goal fu labs The patient was seen and examined at bedside and all new and available data was reviewed in the patients chart. I agree with the above findings, impression and plan. (Patient seen earlier today. Signature stamp does not reflect patient encounter time.). - Kentrell Brooks MD Subjective Gastrointestinal/Abdominal: Reports: no symptoms Subjective limited Objective Last 24 Hour Vital Signs Date Time Temp Pulse Resp B/P (MAP) Pulse Ox O2 Delivery O2 Flow Rate FiO2 07/28/18 11:58 98.2 84 26 127/51 (76) 100 07/28/18 11:01 Nasal Cannula 2.0 07/28/18 08:28 96.8 88 24 127/51 (76) 100 07/28/18 04:00 97.9 78 22 129/54 (79) 100 07/28/18 00:00 99.4 82 24 125/54 (77) 100 07/27/18 21:00 Nasal Cannula 2.0 07/27/18 20:00 98.1 78 25 132/56 (81) 100 07/27/18 16:00 98.0 76 17 131/57 (81) 99 Intake and Output 07/27/18 07/28/18 19:00 07:00 Intake Total 707.5 ml 1000 ml Output Total 725 ml Balance 707.5 ml 275 ml Free Water 80 ml 130 ml IV Total 27.5 ml 150 ml Tube Feeding 600 ml 720 ml Output Urine Total 725 ml # Voids 3 # Bowel Movements 4 1 Laboratory Tests Test 07/28/18 05:30 White Blood Count 11.0 K/UL (4.8-10.8) H Red Blood Count 2.11 M/UL (4.70-6.10) L Hemoglobin 6.9 G/DL (14.2-18.0) *L Hematocrit 19.7 % (42.0-52.0) L Mean Corpuscular Volume 93 FL (80-99) Mean Corpuscular Hemoglobin 32.7 PG (27.0-31.0) H Mean Corpuscular Hemoglobin Concent 35.0 G/DL (32.0-36.0) Red Cell Distribution Width 12.2 % (11.6-14.8) Platelet Count 199 K/UL (150-450) Mean Platelet Volume 7.9 FL (6.5-10.1) Neutrophils (%) (Auto) % (45.0-75.0) Lymphocytes (%) (Auto) % (20.0-45.0) Monocytes (%) (Auto) % (1.0-10.0) Eosinophils (%) (Auto) % (0.0-3.0) Basophils (%) (Auto) % (0.0-2.0) Differential Total Cells Counted 100 Neutrophils % (Manual) 69 % (45-75) Lymphocytes % (Manual) 10 % (20-45) L Monocytes % (Manual) 12 % (1-10) H Eosinophils % (Manual) 9 % (0-3) H Basophils % (Manual) 0 % (0-2) Band Neutrophils 0 % (0-8) Platelet Estimate Adequate Platelet Morphology Normal Hypochromasia 4+ Anisocytosis 1+ Rouleau 2+ Reticulocyte Count 3.3 % (0.0-2.0) H Prothrombin Time 10.7 SEC (9.30-11.50) Prothromb Time International Ratio 1.0 (0.9-1.1) Activated Partial Thromboplast Time 33 SEC (23-33) Sodium Level 141 MMOL/L (136-145) Potassium Level 4.5 MMOL/L (3.5-5.1) Chloride Level 108 MMOL/L (98-107) H Carbon Dioxide Level 26 MMOL/L (21-32) Anion Gap 8 mmol/L (5-15) Blood Urea Nitrogen 35 mg/dL (7-18) H Creatinine 1.6 MG/DL (0.55-1.30) H Estimat Glomerular Filtration Rate mL/min (>60) Glucose Level 132 MG/DL (74-106) H Calcium Level 8.4 MG/DL (8.5-10.1) L Vitamin B12 Level 492 PG/ML (193-986) Folate 19.7 NG/ML (8.6-58.9) Thyroid Stimulating Hormone (TSH) 4.009 uiU/mL (0.358-3.740) Free Thyroxine 1.29 NG/DL (0.76-1.46) Height (Feet): 5 Height (Inches): 7.00 Weight (Pounds): 130 General Appearance: WD/WN, no apparent distress, alert, thin Cardiovascular: normal rate Respiratory/Chest: normal breath sounds, no respiratory distress Abdominal Exam: normal bowel sounds, non tender, soft, GT site - c/d/i Extremities: non-tender Supa Owens NP Jul 28, 2018 13:32
--- NOTE | 2018-07-28 15:42 | Nephrology Progress Note ---
Assessment/Plan Plan CORIN - Improving with IVF Hypernatremia - improving with IVF. Anemia of CKD - transfuse. HCT 20!. Start ALEAH + IV Iron. Despite transfusion Hct remains low @ 19. R/O GI Bleed - see orders. Subjective Subjective Confused Objective Objective Last 24 Hour Vital Signs Date Time Temp Pulse Resp B/P (MAP) Pulse Ox O2 Delivery O2 Flow Rate FiO2 07/28/18 11:58 98.2 84 26 127/51 (76) 100 07/28/18 11:01 Nasal Cannula 2.0 07/28/18 08:28 96.8 88 24 127/51 (76) 100 07/28/18 04:00 97.9 78 22 129/54 (79) 100 07/28/18 00:00 99.4 82 24 125/54 (77) 100 07/27/18 21:00 Nasal Cannula 2.0 07/27/18 20:00 98.1 78 25 132/56 (81) 100 07/27/18 16:00 98.0 76 17 131/57 (81) 99 Intake and Output 07/27/18 07/28/18 19:00 07:00 Intake Total 707.5 ml 1000 ml Output Total 725 ml Balance 707.5 ml 275 ml Free Water 80 ml 130 ml IV Total 27.5 ml 150 ml Tube Feeding 600 ml 720 ml Output Urine Total 725 ml # Voids 3 # Bowel Movements 4 1 Laboratory Tests 07/28/18 05:30: White Blood Count 11.0H, Red Blood Count 2.11L, Hemoglobin 6.9*L, Hematocrit 19.7L, Mean Corpuscular Volume 93, Mean Corpuscular Hemoglobin 32.7H, Mean Corpuscular Hemoglobin Concent 35.0, Red Cell Distribution Width 12.2, Platelet Count 199, Mean Platelet Volume 7.9, Neutrophils (%) (Auto) , Lymphocytes (%) ( Auto) , Monocytes (%) (Auto) , Eosinophils (%) (Auto) , Basophils (%) (Auto) , Differential Total Cells Counted 100, Neutrophils % (Manual) 69, Lymphocytes % ( Manual) 10L, Monocytes % (Manual) 12H, Eosinophils % (Manual) 9H, Basophils % ( Manual) 0, Band Neutrophils 0, Platelet Estimate Adequate, Platelet Morphology Normal, Hypochromasia 4+, Anisocytosis 1+, Rouleau 2+, Reticulocyte Count 3.3H, Prothrombin Time 10.7, Prothromb Time International Ratio 1.0, Activated Partial Thromboplast Time 33, Sodium Level 141, Potassium Level 4.5, Chloride Level 108H, Carbon Dioxide Level 26, Anion Gap 8, Blood Urea Nitrogen 35H, Creatinine 1.6H, Estimat Glomerular Filtration Rate , Glucose Level 132H, Calcium Level 8.4L, Vitamin B12 Level 492, Folate 19.7, Thyroid Stimulating Hormone (TSH) 4.009H, Free Thyroxine 1.29 07/28/18 13:20: Stool Occult Blood [Pending] Height (Feet): 5 Height (Inches): 7.00 Weight (Pounds): 130 Objective CV RR Lungs CTA Abd SNT. BS + E No CCE nAn López MD Jul 28, 2018 15:42
--- NOTE | 2018-07-28 18:37 | Cardiology Report ---
APPROVED REPORT EKG Measurement Heart [id number] Normal sinus rhythm Incomplete right bundle branch block Minimal voltage criteria for LVH, may be normal variant Prolonged QT Abnormal ECG
[2018-07-28] MEDS: Levemir Flexpen SUBQ SCH (20:21)
[2018-07-29] VITALS: BP 149/83
[2018-07-29 04:00] VITALS: BP 124/65
[2018-07-29] MEDS: NovoLOG Insulin Flexpen SUBQ SCH ×4 (05:44→23:42)
[2018-07-29] MEDS: Piperacillin/Tazobactam 3.375 GM in NS 110 ML IVPB SCH ×3 (06:30→22:24)
[2018-07-29 07:23] LABS: ANION GAP 9 mmol/L (5-15); BLOOD UREA NITROGEN 35 mg/dL (7-18); CALCIUM 8.6 MG/DL (8.5-10.1); CARBON DIOXIDE 24 MMOL/L (21-32); CHLORIDE 105 MMOL/L (98-107); CHOLESTEROL 160 MG/DL (< 200); CREATININE 1.6 MG/DL (0.55-1.30); HDL CHOLESTEROL 26 MG/DL (40-60); POTASSIUM 5.1 MMOL/L (3.5-5.1); SODIUM 138 MMOL/L (136-145); TRIGLYCERIDES 854 MG/DL (30-150)
[2018-07-29 07:29] LABS: HEMATOCRIT 20.6 % (42.0-52.0); HEMOGLOBIN 7.1 G/DL (14.2-18.0); MEAN CORPUSCULAR VOLUME 93 FL (80-99); PLATELET COUNT 280 K/UL (150-450); RED BLOOD COUNT 2.22 M/UL (4.70-6.10); RED CELL DISTRIBUTION WIDTH 12.2 % (11.6-14.8); WHITE BLOOD COUNT 11.3 K/UL (4.8-10.8)
[2018-07-29 08:00] VITALS: BP 143/55
[2018-07-29] MEDS: Heparin 5000 units/ml inj SUBQ SCH ×2 (08:51→20:55)
--- NOTE | 2018-07-29 10:50 | GI Progress Note ---
Assessment/Plan Problems: (1) G tube feedings ICD Codes: Z93.1 - Gastrostomy status SNOMED: 772964364, 752898749 (2) Dehydration ICD Codes: E86.0 - Dehydration SNOMED: 80368536 (3) Anemia ICD Codes: D64.9 - Anemia, unspecified SNOMED: 917842094 Status: stable Status Narrative Discussed with Dr. Brooks. Assessment/Plan hold venofer >> no iron deficiency, high ferritin levels EGD scheduled for tomorrow to evaluate severe anemia. - NPO @ MN. - hold all blood thinners. Lopid monitor H&H, prn transfusion prevacid GT anemia work up OB stool r/o GI bleed GTFs per RD, increase to goal fu labs The patient was seen and examined at bedside and all new and available data was reviewed in the patients chart. I agree with the above findings, impression and plan. (Patient seen earlier today. Signature stamp does not reflect patient encounter time.). - Kentrell Brooks MD Subjective Subjective limited Objective Last 24 Hour Vital Signs Date Time Temp Pulse Resp B/P (MAP) Pulse Ox O2 Delivery O2 Flow Rate FiO2 07/29/18 09:00 Nasal Cannula 2.0 07/29/18 08:00 97.2 83 31 143/55 (84) 100 07/29/18 07:37 97 Nasal Cannula 2.0 28 07/29/18 07:37 Nasal Cannula 2.0 28 07/29/18 04:00 98.5 84 21 124/65 (84) 98 07/29/18 00:00 98.7 81 20 149/83 (105) 100 07/28/18 23:45 Nasal Cannula 2.0 28 07/28/18 23:45 99 Nasal Cannula 2.0 07/28/18 21:00 Nasal Cannula 2.0 07/28/18 20:00 98.7 82 22 142/67 (92) 100 07/28/18 19:00 69 23 151/74 (99) 99 07/28/18 16:00 98.8 80 22 121/56 (77) 99 07/28/18 11:58 98.2 84 26 127/51 (76) 100 07/28/18 11:01 Nasal Cannula 2.0 Intake and Output 07/28/18 07/29/18 19:00 07:00 Intake Total 510 ml 1170.0 ml Output Total 400 ml 650 ml Balance 110 ml 520.0 ml Free Water 30 ml 100 ml IV Total 410.0 ml Tube Feeding 480 ml 660 ml Output Urine Total 400 ml 650 ml # Bowel Movements 2 4 Laboratory Tests Test 07/28/18 13:20 07/29/18 03:40 07/29/18 06:00 Stool Occult Blood Negative (NEGATIVE) Negative (NEGATIVE) White Blood Count 11.3 K/UL (4.8-10.8) H Red Blood Count 2.22 M/UL (4.70-6.10) L Hemoglobin 7.1 G/DL (14.2-18.0) L Hematocrit 20.6 % (42.0-52.0) L Mean Corpuscular Volume 93 FL (80-99) Mean Corpuscular Hemoglobin 32.2 PG (27.0-31.0) H Mean Corpuscular Hemoglobin Concent 34.7 G/DL (32.0-36.0) Red Cell Distribution Width 12.2 % (11.6-14.8) Platelet Count 280 K/UL (150-450) Mean Platelet Volume 7.7 FL (6.5-10.1) Neutrophils (%) (Auto) % (45.0-75.0) Lymphocytes (%) (Auto) % (20.0-45.0) Monocytes (%) (Auto) % (1.0-10.0) Eosinophils (%) (Auto) % (0.0-3.0) Basophils (%) (Auto) % (0.0-2.0) Differential Total Cells Counted 100 Neutrophils % (Manual) 75 % (45-75) Lymphocytes % (Manual) 14 % (20-45) L Monocytes % (Manual) 9 % (1-10) Eosinophils % (Manual) 2 % (0-3) Basophils % (Manual) 0 % (0-2) Band Neutrophils 0 % (0-8) Smudge Cells 1+ Platelet Estimate Adequate Platelet Morphology Normal Hypochromasia 3+ Anisocytosis 1+ Spherocytes 2+ Rouleau 2+ Sodium Level 138 MMOL/L (136-145) Potassium Level 5.1 MMOL/L (3.5-5.1) Chloride Level 105 MMOL/L (98-107) Carbon Dioxide Level 24 MMOL/L (21-32) Anion Gap 9 mmol/L (5-15) Blood Urea Nitrogen 35 mg/dL (7-18) H Creatinine 1.6 MG/DL (0.55-1.30) H Estimat Glomerular Filtration Rate mL/min (>60) Glucose Level 164 MG/DL (74-106) H Calcium Level 8.6 MG/DL (8.5-10.1) Triglycerides Level 854 MG/DL (30-150) H Cholesterol Level 160 MG/DL (< 200) LDL Cholesterol 45 mg/dL (<100) HDL Cholesterol 26 MG/DL (40-60) L Cholesterol/HDL Ratio 6.2 (3.3-4.4) H Height (Feet): 5 Height (Inches): 7.00 Weight (Pounds): 138 General Appearance: alert, thin Cardiovascular: normal rate Respiratory/Chest: normal breath sounds, no respiratory distress Abdominal Exam: soft, GT site - c/d/i Supa Owens NP Jul 29, 2018 10:50
[2018-07-29 12:00] VITALS: BP 122/52
[2018-07-29 16:00] VITALS: BP 120/53
--- NOTE | 2018-07-29 16:35 | Nephrology Progress Note ---
Assessment/Plan Plan CORIN - Improving with IVF Hypernatremia - improving with IVF. Anemia of CKD - transfuse. HCT 20!. Start ALEAH + IV Iron. Despite transfusion Hct remains low @ 19. R/O GI Bleed - see orders. For endoscopies tomorrow. No family or dPOA so 2 MDs to sign consent. Subjective Subjective Confused Objective Objective Last 24 Hour Vital Signs Date Time Temp Pulse Resp B/P (MAP) Pulse Ox O2 Delivery O2 Flow Rate FiO2 07/29/18 12:00 97.7 87 34 122/52 (75) 100 07/29/18 10:57 Nasal Cannula 2.0 07/29/18 09:00 Nasal Cannula 2.0 07/29/18 08:00 97.2 83 31 143/55 (84) 100 07/29/18 07:37 97 Nasal Cannula 2.0 28 07/29/18 07:37 Nasal Cannula 2.0 28 07/29/18 04:00 98.5 84 21 124/65 (84) 98 07/29/18 00:00 98.7 81 20 149/83 (105) 100 07/28/18 23:45 Nasal Cannula 2.0 28 07/28/18 23:45 99 Nasal Cannula 2.0 07/28/18 21:00 Nasal Cannula 2.0 07/28/18 20:00 98.7 82 22 142/67 (92) 100 07/28/18 19:00 69 23 151/74 (99) 99 Intake and Output 07/28/18 07/29/18 19:00 07:00 Intake Total 510 ml 1230.0 ml Output Total 400 ml 650 ml Balance 110 ml 580.0 ml Free Water 30 ml 100 ml IV Total 410.0 ml Tube Feeding 480 ml 720 ml Output Urine Total 400 ml 650 ml # Bowel Movements 2 4 Laboratory Tests 07/29/18 03:40: Stool Occult Blood Negative 07/29/18 06:00: White Blood Count 11.3H, Red Blood Count 2.22L, Hemoglobin 7.1L, Hematocrit 20.6L, Mean Corpuscular Volume 93, Mean Corpuscular Hemoglobin 32.2H, Mean Corpuscular Hemoglobin Concent 34.7, Red Cell Distribution Width 12.2, Platelet Count 280, Mean Platelet Volume 7.7, Neutrophils (%) (Auto) , Lymphocytes (%) ( Auto) , Monocytes (%) (Auto) , Eosinophils (%) (Auto) , Basophils (%) (Auto) , Differential Total Cells Counted 100, Neutrophils % (Manual) 75, Lymphocytes % ( Manual) 14L, Monocytes % (Manual) 9, Eosinophils % (Manual) 2, Basophils % ( Manual) 0, Band Neutrophils 0, Smudge Cells 1+, Platelet Estimate Adequate, Platelet Morphology Normal, Hypochromasia 3+, Anisocytosis 1+, Spherocytes 2+, Rouleau 2+, Sodium Level 138, Potassium Level 5.1, Chloride Level 105, Carbon Dioxide Level 24, Anion Gap 9, Blood Urea Nitrogen 35H, Creatinine 1.6H, Estimat Glomerular Filtration Rate , Glucose Level 164H, Calcium Level 8.6, Triglycerides Level 854H, Cholesterol Level 160, LDL Cholesterol 45, HDL Cholesterol 26L, Cholesterol/HDL Ratio 6.2H Height (Feet): 5 Height (Inches): 7.00 Weight (Pounds): 138 Objective CV RR Lungs CTA Abd SNT. BS + E No CCE Ann López MD Jul 29, 2018 16:35
[2018-07-29 20:00] VITALS: BP 136/60
[2018-07-29] MEDS: Epogen (for non ESRD use) SUBQ SCH (20:55)
[2018-07-29] MEDS: Iron Sucrose 100 MG in NS 55 ML IV SCH (20:55)
[2018-07-29] MEDS: Levemir Flexpen SUBQ SCH (20:58)
[2018-07-30] VITALS (13 sets, daily range): BP systolic 113–147; BP diastolic 49–65
[2018-07-30] MEDS: Piperacillin/Tazobactam 3.375 GM in NS 110 ML IVPB SCH ×3 (05:23→22:38)
[2018-07-30] MEDS: NovoLOG Insulin Flexpen SUBQ SCH ×3 (06:00→17:02)
[2018-07-30 07:28] LABS: HEMATOCRIT 23.1 % (42.0-52.0); HEMOGLOBIN 7.5 G/DL (14.2-18.0); MEAN CORPUSCULAR VOLUME 93 FL (80-99); PLATELET COUNT 279 K/UL (150-450); RED BLOOD COUNT 2.47 M/UL (4.70-6.10); RED CELL DISTRIBUTION WIDTH 12.7 % (11.6-14.8); WHITE BLOOD COUNT 11.8 K/UL (4.8-10.8)
[2018-07-30 07:47] LABS: ANION GAP 6 mmol/L (5-15); BLOOD UREA NITROGEN 33 mg/dL (7-18); CALCIUM 9.1 MG/DL (8.5-10.1); CARBON DIOXIDE 28 MMOL/L (21-32); CHLORIDE 105 MMOL/L (98-107); CREATININE 1.7 MG/DL (0.55-1.30); POTASSIUM 5.4 MMOL/L (3.5-5.1); SODIUM 139 MMOL/L (136-145)
[2018-07-30] MEDS: Heparin 5000 units/ml inj SUBQ SCH ×2 (08:53→21:25)
[2018-07-30] MEDS: Vancomycin 1 GM in D5W 275 ML IVPB SCH (10:21)
--- NOTE | 2018-07-30 10:31 | Anethesia Preoperative Eval ---
Anesthesia Pre-op PMH/ROS General Date of Evaluation: Jul 30, 2018 Time of Evaluation: 10:26 Anesthesiologist: Sue Green CRNA ASA Score: ASA 3 Mallampati Score Class I : Soft palate, uvula, fauces, pillars visible Class II: Soft palate, uvula, fauces visible Class III: Soft palate, base of uvula visible Class IV: Only hard plate visible Mallampati Classification: Class II Surgeon: Todd Diagnosis: anemia r/o GI bleed Surgical Procedure: Diagnostic EGD Anesthesia History: none Family History: no anesthesia problems Allergies: Coded Allergies: No Known Allergies (Verified , 12/28/06) Medications: see eMAR Patient NPO?: Yes NPO Date: Jul 29, 2018 NPO Time: 0000 Past Medical History Cardiovascular: Reports: HTN; Denies: CAD, HI, valve dz, arrhythmia, other Pulmonary: Reports: other - aspiration pneumonia; Denies: asthma, COPD, JEOV[place] Gastrointestinal/Genitourinary: Reports: GERD, other - dysphagia, g-tube dependent; Denies: CRI, ESRD Neurologic/Psychiatric: Reports: dementia; Denies: CVA, depression/anxiety, TIA, other Endocrine: Reports: DM, other; Denies: hypothyroidism, steroids HEENT: Denies: cataract (L), cataract (R), glaucoma, [place] (L), [place] (R), other Hematology/Immune: Reports: anemia; Denies: DVT, bleeding disorder, other Musculoskeletal/Integumentary: Reports: other - severe osteoporosis, rheumatoid arthritis; Denies: OA, RA, DJD, DDD, edema PMH Narrative: as above PSxH Narrative: cholecystectomy, exploratory laparotomy, g-tube Anesthesia Pre-op Phys. Exam Physician Exam Last Vital Signs Date Time Temp Pulse Resp B/P (MAP) Pulse Ox O2 Delivery O2 Flow Rate FiO2 07/30/18 08:16 Nasal Cannula 2.0 07/30/18 08:00 98.0 84 20 128/52 (77) 100 07/29/18 07:37 28 Constitutional: NAD, other - severe bruising throughtout Neurologic: CN 2-12 intact, other - dementia Cardiovascular: RRR Respiratory: CTA Gastrointestinal: S/NT/ND, other - G-tube Airway Exam Mallampati Score: Class II MO: limited ROM: limited Teeth: missing Dentures: lower Anesthesia Pre-op A/P Labs Hematology Test 07/30/18 06:50 White Blood Count 11.8 K/UL (4.8-10.8) H Red Blood Count 2.47 M/UL (4.70-6.10) L Hemoglobin 7.5 G/DL (14.2-18.0) L Hematocrit 23.1 % (42.0-52.0) L Mean Corpuscular Volume 93 FL (80-99) Mean Corpuscular Hemoglobin 30.4 PG (27.0-31.0) Mean Corpuscular Hemoglobin Concent 32.5 G/DL (32.0-36.0) Red Cell Distribution Width 12.7 % (11.6-14.8) Platelet Count 279 K/UL (150-450) Mean Platelet Volume 6.9 FL (6.5-10.1) Neutrophils (%) (Auto) % (45.0-75.0) Lymphocytes (%) (Auto) % (20.0-45.0) Monocytes (%) (Auto) % (1.0-10.0) Eosinophils (%) (Auto) % (0.0-3.0) Basophils (%) (Auto) % (0.0-2.0) Differential Total Cells Counted 100 Neutrophils % (Manual) 68 % (45-75) Lymphocytes % (Manual) 12 % (20-45) L Monocytes % (Manual) 12 % (1-10) H Eosinophils % (Manual) 6 % (0-3) H Basophils % (Manual) 1 % (0-2) Myelocytes % 1 % (0-0) H Band Neutrophils 0 % (0-8) Platelet Estimate Adequate Platelet Morphology Normal Hypochromasia 3+ Anisocytosis 1+ Spherocytes 1+ Coagulation Test 07/30/18 06:50 Prothrombin Time 10.8 SEC (9.30-11.50) Prothromb Time International Ratio 1.0 (0.9-1.1) Activated Partial Thromboplast Time 31 SEC (23-33) Chemistry Test 07/30/18 06:50 Sodium Level 139 MMOL/L (136-145) Potassium Level 5.4 MMOL/L (3.5-5.1) H Chloride Level 105 MMOL/L (98-107) Carbon Dioxide Level 28 MMOL/L (21-32) Anion Gap 6 mmol/L (5-15) Blood Urea Nitrogen 33 mg/dL (7-18) H Creatinine 1.7 MG/DL (0.55-1.30) H Estimat Glomerular Filtration Rate mL/min (>60) Glucose Level 88 MG/DL (74-106) Calcium Level 9.1 MG/DL (8.5-10.1) Studies Pre-op Studies: EKG - NSR with incomplete RBBB, prolonged QT, CXR - chronic basilar fibrosis, enlarged heart, calcified aorta, other - head CT: no evidence of ICH, no mass effect, no cerebral edema Risk Assessment & Plan Assessment: asa 3 ok to proceed Plan: MAC Status Change Before Surgery: No Pre-Antibiotics Given Within 1 Hr of Incision: Sue Johnson CRNA Jul 30, 2018 10:31
[2018-07-30] MEDS ORDERED: NS 500ML IVPB ONE (12:40)
--- NOTE | 2018-07-30 12:41 | GI Progress Note ---
Assessment/Plan Problems: (1) G tube feedings ICD Codes: Z93.1 - Gastrostomy status SNOMED: 847499615, 647566607 (2) aspiration p (3) Infection ICD Codes: B99.9 - Unspecified infectious disease SNOMED: 40090724 (4) Anemia ICD Codes: D64.9 - Anemia, unspecified SNOMED: 587610954 Assessment/Plan patient admitted with severe anemia. required blood transfusion no family member available for consent needs urgent EGD plan with 2 MD consent Objective Last 24 Hour Vital Signs Date Time Temp Pulse Resp B/P (MAP) Pulse Ox O2 Delivery O2 Flow Rate FiO2 07/30/18 08:16 Nasal Cannula 2.0 07/30/18 08:00 98.0 84 20 128/52 (77) 100 07/30/18 04:00 98.5 83 21 135/62 (86) 96 07/30/18 00:00 98.5 79 19 147/61 (89) 98 07/29/18 21:00 Nasal Cannula 2.0 07/29/18 20:00 98.1 78 20 136/60 (85) 100 07/29/18 16:00 97.9 84 30 120/53 (75) 99 Intake and Output 07/29/18 07/30/18 19:00 07:00 Intake Total 1250.0 ml 637.5 ml Output Total 375 ml 400 ml Balance 875.0 ml 237.5 ml Free Water 160 ml 100 ml IV Total 370.0 ml 237.5 ml Tube Feeding 720 ml 300 ml Output Urine Total 375 ml 400 ml # Voids 3 # Bowel Movements 3 2 Laboratory Tests Test 07/30/18 05:00 07/30/18 06:50 Stool Occult Blood Negative (NEGATIVE) White Blood Count 11.8 K/UL (4.8-10.8) H Red Blood Count 2.47 M/UL (4.70-6.10) L Hemoglobin 7.5 G/DL (14.2-18.0) L Hematocrit 23.1 % (42.0-52.0) L Mean Corpuscular Volume 93 FL (80-99) Mean Corpuscular Hemoglobin 30.4 PG (27.0-31.0) Mean Corpuscular Hemoglobin Concent 32.5 G/DL (32.0-36.0) Red Cell Distribution Width 12.7 % (11.6-14.8) Platelet Count 279 K/UL (150-450) Mean Platelet Volume 6.9 FL (6.5-10.1) Neutrophils (%) (Auto) % (45.0-75.0) Lymphocytes (%) (Auto) % (20.0-45.0) Monocytes (%) (Auto) % (1.0-10.0) Eosinophils (%) (Auto) % (0.0-3.0) Basophils (%) (Auto) % (0.0-2.0) Differential Total Cells Counted 100 Neutrophils % (Manual) 68 % (45-75) Lymphocytes % (Manual) 12 % (20-45) L Monocytes % (Manual) 12 % (1-10) H Eosinophils % (Manual) 6 % (0-3) H Basophils % (Manual) 1 % (0-2) Myelocytes % 1 % (0-0) H Band Neutrophils 0 % (0-8) Platelet Estimate Adequate Platelet Morphology Normal Hypochromasia 3+ Anisocytosis 1+ Spherocytes 1+ Prothrombin Time 10.8 SEC (9.30-11.50) Prothromb Time International Ratio 1.0 (0.9-1.1) Activated Partial Thromboplast Time 31 SEC (23-33) Sodium Level 139 MMOL/L (136-145) Potassium Level 5.4 MMOL/L (3.5-5.1) H Chloride Level 105 MMOL/L (98-107) Carbon Dioxide Level 28 MMOL/L (21-32) Anion Gap 6 mmol/L (5-15) Blood Urea Nitrogen 33 mg/dL (7-18) H Creatinine 1.7 MG/DL (0.55-1.30) H Estimat Glomerular Filtration Rate mL/min (>60) Glucose Level 88 MG/DL (74-106) Calcium Level 9.1 MG/DL (8.5-10.1) Height (Feet): 5 Height (Inches): 6.00 Weight (Pounds): 137 General Appearance: confused Cardiovascular: normal rate Respiratory/Chest: decreased breath sounds Abdominal Exam: normal bowel sounds, non tender, soft Extremities: non-tender Kentrell Brooks MD Jul 30, 2018 12:41
--- NOTE | 2018-07-30 13:07 | Immediate Post-Op Evaluation ---
Immediate Post-Op Evalulation Immediate Post-Op Evalulation Procedure: EGD diagnostic Date of Evaluation: Jul 30, 2018 Time of Evaluation: 12:59 IV Fluids: 0.9% NS 200 ml Blood Pressure Systolic: 129 Blood Pressure Diastolic: 62 Pulse Rate: 81 Respiratory Rate: 25 O2 Sat by Pulse Oximetry: 98 Temperature (Fahrenheit): 97.8 Pain Score (1-10): 0 Nausea: No Vomiting: No Complications none Patient Status: reacts Hydration Status: adequate Given Within 1 Hr of Incision: Sue Johnson CRNA Jul 30, 2018 13:07
--- NOTE | 2018-07-30 13:13 | Pre-Procedure Note/Attestation ---
Pre-Procedure Note/Attestation Complete Prior to Procedure Planned Procedure: not applicable Procedure Narrative: egd Indications for Procedure Pre-Operative Diagnosis: gib Attestation I attest that I discussed the nature of the procedure; its benefits; risks and complications; and alternatives (and the risks and benefits of such alternatives ), prior to the procedure, with the patient (or the patient's legal lead customer service representative). I attest that, if there was a reasonable possibility of needing a blood transfusion, the patient (or the patient's legal lead customer service representative) was given the [facility] standardized written summary, pursuant to the David Saqib Blood Safety Act ([place] Health and Safety Code # 1645, as amended). I attest that I re-evaluated the patient just prior to the surgery and that there has been no change in the patient's H&P, except as documented below: Kentrell Brooks MD Jul 30, 2018 13:13
--- NOTE | 2018-07-30 13:14 | Endoscopy Procedure Note ---
Endoscopy Procedure Note General Indication for Procedure: gib Procedures Performed: EGD Operative Findings/Diagnosis: du Specimen: yes Pt Tolerated Procedure Well: Yes Estimated Blood Loss: none Anesthesia Anesthesiologist: see chart Anesthesia: MAC Inserted Devices Implant(s) used?: No GI Core Measures 50 yrs or older w/o bx or poly: Not Applicable 10yrs. F/U not recommended: Not Applicable Kentrell Brooks MD Jul 30, 2018 13:14
--- NOTE | 2018-07-30 15:17 | Consultation ---
Consult Note Assessment/Plan A/ 1) Onychogyphosis 2) Periungual inflammation 3) Abnormal mobility P/ Will return with instrumentation for nail debridement Thank you Dawood Chilel DPM Jul 30, 2018 15:17
--- NOTE | 2018-07-30 18:30 | Procedure Note ---
DATE OF PROCEDURE: 07/30/2018 SURGEON: Kentrell Brooks M.D. ANESTHESIOLOGIST: Irish ELLINGTON. REFERRING PHYSICIAN: Ann López M.D. PROCEDURE: Upper endoscopy with biopsy. ANESTHESIA: Per Irish ELLINGTON. INSTRUMENT: Olympus adult flexible upper endoscope. INDICATION: Anemia and GI bleeding. The procedure, risks, benefits, and possible consequences, including hemorrhage, aspiration, perforation and infection, and alternative treatments, were explained to the patient/legal guardian by Dr. Kentrell Brooks and the patient/legal guardian understood and accepted these risks. DESCRIPTION OF PROCEDURE: After informed consent was obtained and the patient was adequately sedated, Olympus upper endoscope was advanced from the mouth into the second portion of duodenum and retroflexion was performed in the stomach. The patient had evidence of diffuse gastritis. Random biopsy from antrum was obtained to rule out H. pylori infection. The patient had evidence of idllalwy-ga-fylrjp duodenitis. Biopsy from the duodenum was also obtained. There were some few shallow ulcerations in the duodenal too, but not actively bleeding. No adherent clot. No visible vessel. The patient tolerated the procedure very well without any complication. G-tube balloon-type was in place without any complication. SUMMARY OF FINDINGS: 1. Gastritis, status post biopsy. 2. Duodenitis with shallow duodenal ulceration, status post biopsy. RECOMMENDATIONS: Resume tube feeding. Follow up biopsy results and treat accordingly. Continue on PPI daily. I want to thank Dr. López for this kind referral. Kentrell Brooks M.D. DR: Suad JOB#: [id number] CC: Ann López M.D.; Fax#: [phone]
[2018-07-30] MEDS ORDERED: GEMFIBROZIL600 MG GT (18:39)
[2018-07-30] MEDS ORDERED: NOVOLOG100 UNITS1 SUBQ (18:39)
[2018-07-30] MEDS ORDERED: LEVEMIR FL100 UNIT/1 SUBQ (18:39)
[2018-07-30] MEDS ORDERED: PROCRIT20000 UNI2 SUBQ (18:39)
[2018-07-30] MEDS ORDERED: HEPARIN SO5000 UNIT2 SUBQ (18:39)
--- NOTE | 2018-07-30 18:40 | Nephrology Progress Note ---
Assessment/Plan Plan CORIN - Improving with IVF Hypernatremia - improving with IVF. Anemia of CKD - HCT 23 on ALEAH + IV Iron. s/p EGD. Has superficial duodenal ulcers. Clear for DC Subjective Subjective Confused Objective Objective Last 24 Hour Vital Signs Date Time Temp Pulse Resp B/P (MAP) Pulse Ox O2 Delivery O2 Flow Rate FiO2 07/30/18 16:01 98.9 81 19 131/49 (76) 100 07/30/18 14:30 98.0 81 18 134/58 (83) 100 07/30/18 14:00 97.8 84 18 127/65 (85) 99 07/30/18 13:25 98.0 79 19 137/59 100 Nasal Cannula 3 07/30/18 13:15 82 18 134/63 100 Nasal Cannula 3 07/30/18 13:09 80 20 136/61 100 Nasal Cannula 3 07/30/18 13:07 81 25 98 07/30/18 13:04 82 24 130/61 100 Nasal Cannula 3 07/30/18 12:59 97.8 81 25 129/62 98 Nasal Cannula 3 07/30/18 12:00 98.2 86 20 141/60 (87) 100 07/30/18 08:16 Nasal Cannula 2.0 07/30/18 08:00 98.0 84 20 128/52 (77) 100 07/30/18 04:00 98.5 83 21 135/62 (86) 96 07/30/18 00:00 98.5 79 19 147/61 (89) 98 07/29/18 21:00 Nasal Cannula 2.0 07/29/18 20:00 98.1 78 20 136/60 (85) 100 Intake and Output 07/29/18 07/30/18 19:00 07:00 Intake Total 1250.0 ml 637.5 ml Output Total 375 ml 400 ml Balance 875.0 ml 237.5 ml Free Water 160 ml 100 ml IV Total 370.0 ml 237.5 ml Tube Feeding 720 ml 300 ml Output Urine Total 375 ml 400 ml # Voids 3 # Bowel Movements 3 2 Laboratory Tests 07/30/18 05:00: Stool Occult Blood Negative 07/30/18 06:50: White Blood Count 11.8H, Red Blood Count 2.47L, Hemoglobin 7.5L, Hematocrit 23.1L, Mean Corpuscular Volume 93, Mean Corpuscular Hemoglobin 30.4, Mean Corpuscular Hemoglobin Concent 32.5, Red Cell Distribution Width 12.7, Platelet Count 279, Mean Platelet Volume 6.9, Neutrophils (%) (Auto) , Lymphocytes (%) ( Auto) , Monocytes (%) (Auto) , Eosinophils (%) (Auto) , Basophils (%) (Auto) , Differential Total Cells Counted 100, Neutrophils % (Manual) 68, Lymphocytes % ( Manual) 12L, Monocytes % (Manual) 12H, Eosinophils % (Manual) 6H, Basophils % ( Manual) 1, Myelocytes % 1H, Band Neutrophils 0, Platelet Estimate Adequate, Platelet Morphology Normal, Hypochromasia 3+, Anisocytosis 1+, Spherocytes 1+, Prothrombin Time 10.8, Prothromb Time International Ratio 1.0, Activated Partial Thromboplast Time 31, Sodium Level 139, Potassium Level 5.4H, Chloride Level 105, Carbon Dioxide Level 28, Anion Gap 6, Blood Urea Nitrogen 33H, Creatinine 1.7H, Estimat Glomerular Filtration Rate , Glucose Level 88, Calcium Level 9.1 Height (Feet): 5 Height (Inches): 6.00 Weight (Pounds): 137 Objective CV RR Lungs CTA Abd SNT. BS + E No CCE Ann López MD Jul 30, 2018 18:40
--- NOTE | 2018-07-30 21:00 | Consultation ---
DATE OF CONSULTATION: 07/30/2018 CONSULTING PHYSICIAN: Dawood Brower D.P.M. REQUESTING PHYSICIAN: Ann López M.D. REASON FOR CONSULTATION: Elongated nails. HISTORY OF PRESENT ILLNESS: The patient is an 82-year-old male admitted to [facility] on 07/23/2018 for altered mental status. Podiatry was consulted for elongated nails. The patient is minimally verbal and history was obtained per the chart review. PAST MEDICAL HISTORY: Significant for gallstones, pancreatitis, upper gastrointestinal bleed, cholelithiasis, chronic kidney disease, type 2 diabetes, spinal stenosis, rheumatoid arthritis, dysphagia, and underlying dementia. SURGICAL HISTORY: Consistent with common bile duct dilatation, cholecystectomy, surgery for small bowel obstruction, and G-tube placement. MEDICATIONS ARE: Per MAR and include vancomycin, Zosyn, and heparin for DVT prophylaxis. ALLERGIES: No known drug allergies. SOCIAL HISTORY: The patient [place] in a detention facility. FAMILY HISTORY: Noncontributory. REVIEW OF SYSTEMS: Unobtainable. PHYSICAL EXAMINATION: VITAL SIGNS: Temperature is 98, pulse 75, respirations 19, blood pressure is 137/59, and saturating 100% on 3 liters nasal cannula. LOWER EXTREMITY: Vascular, weakly palpable pedal pulses noted bilaterally. Feet are equally warm. No edema or cyanosis is noted. DERMATOLOGICAL: Elongated gryphotic toenails noted x10. No ulcers or lesions are noted. Interdigital spaces are clear. MUSCULOSKELETAL: The patient is bedbound. No gross deformities are noted. LABORATORY DATA: White blood cell count is 11.8, H and H is 7.5 and 23.1, and platelet count is 279,000. Potassium is 5.7, BUN is 33, and creatinine is 1.7. No lower extremity imaging is noted on this admission. ASSESSMENT: 1. Onychogryphosis. 2. Periungual inflammation x10. 3. Abnormal mobility. PLAN: We will return tomorrow with instrumentation and debride the toenails. Continue offloading the heels and precautions. Thank you for the courtesy of this consultation. Adam MorrisonM. DR: MARIAA JOB#: [id number] CC:
[2018-07-30] MEDS: Iron Sucrose 100 MG in NS 55 ML IV SCH (21:25)
[2018-07-30] MEDS: Levemir Flexpen SUBQ SCH (21:26)
[2018-07-31] VITALS: BP 125/52
[2018-07-31] MEDS: NovoLOG Insulin Flexpen SUBQ SCH ×3 (00:26→12:00)
[2018-07-31 04:00] VITALS: BP 132/53
[2018-07-31] MEDS: Piperacillin/Tazobactam 3.375 GM in NS 110 ML IVPB SCH ×2 (05:20→13:45)
[2018-07-31 08:00] VITALS: BP 157/54
--- NOTE | 2018-07-31 08:02 | Nephrology Progress Note ---
Assessment/Plan Plan CORIN - Improving with IVF Hypernatremia - improving with IVF. Anemia of CKD - HCT 23 on ALEAH + IV Iron. s/p EGD. Has superficial duodenal ulcers. Clear for DC DC'ed to SNF Subjective Subjective Confused Objective Objective Last 24 Hour Vital Signs Date Time Temp Pulse Resp B/P (MAP) Pulse Ox O2 Delivery O2 Flow Rate FiO2 07/31/18 07:33 97 Nasal Cannula 2.0 28 07/31/18 07:33 Nasal Cannula 2.0 28 07/31/18 04:00 98.9 88 16 132/53 (79) 99 07/31/18 00:00 98.0 83 16 125/52 (76) 100 07/30/18 21:00 Nasal Cannula 2.0 07/30/18 20:00 98.6 81 16 113/57 (75) 100 07/30/18 16:01 98.9 81 19 131/49 (76) 100 07/30/18 14:30 98.0 81 18 134/58 (83) 100 07/30/18 14:00 97.8 84 18 127/65 (85) 99 07/30/18 13:25 98.0 79 19 137/59 100 Nasal Cannula 3 07/30/18 13:15 82 18 134/63 100 Nasal Cannula 3 07/30/18 13:09 80 20 136/61 100 Nasal Cannula 3 07/30/18 13:07 81 25 98 07/30/18 13:04 82 24 130/61 100 Nasal Cannula 3 07/30/18 12:59 97.8 81 25 129/62 98 Nasal Cannula 3 07/30/18 12:00 98.2 86 20 141/60 (87) 100 07/30/18 08:16 Nasal Cannula 2.0 Intake and Output 07/30/18 07/31/18 18:59 06:59 Intake Total 1137.500 ml 1797.5 ml Output Total 800 ml 600 ml Balance 337.500 ml 1197.5 ml Free Water 70 ml 230 ml IV Total 767.500 ml 847.5 ml Tube Feeding 300 ml 720 ml Output Urine Total 800 ml 600 ml Height (Feet): 5 Height (Inches): 6.00 Weight (Pounds): 137 Objective CV RR Lungs CTA Abd SNT. BS + E No CCE Ann López MD Jul 31, 2018 08:02
[2018-07-31] MEDS: Heparin 5000 units/ml inj SUBQ SCH (09:44)
--- NOTE | 2018-07-31 10:34 | 48 Hour Post Anesthesia Eval ---
Post Anesthesia Evaluation Procedure: EGD diagnostic Date of Evaluation: Jul 31, 2018 Time of Evaluation: 07:00 Blood Pressure Systolic: 132 0: 52 Pulse Rate: 88 Respiratory Rate: 16 Temperature (Fahrenheit): 98.0 O2 Sat by Pulse Oximetry: 99 Airway: patent Nausea: No Vomiting: No Pain Intensity: 0 Hydration Status: adequate Cardiopulmonary Status: stable Mental Status/LOC: patient returned to baseline Follow-up Care/Observations: per hospitalist Post-Anesthesia Complications: none Follow-up care needed: N/A Sue Green CRNA Jul 31, 2018 10:34
[2018-07-31 12:00] VITALS: BP 154/69
--- NOTE | 2018-07-31 13:35 | Consultation ---
Consult Note Consult Note Pt seen bedside for onychomcyosis , podiatry service consulted for nail debridement at bedside. Assessment/Plan A: Onychomycosis B/L LE P: Nail debridement of nails 1-5 B/L LE performed at bedside, with sterile technique. WOI. Thank you for consulting podiatry. Loy Puckett DPM Jul 31, 2018 13:35
--- NOTE | 2018-07-31 13:41 | GI Progress Note ---
Assessment/Plan Problems: (1) G tube feedings ICD Codes: Z93.1 - Gastrostomy status SNOMED: 906187346, 681709570 (2) Dehydration ICD Codes: E86.0 - Dehydration SNOMED: 09742276 (3) Anemia ICD Codes: D64.9 - Anemia, unspecified SNOMED: 318537549 Status: stable Status Narrative Discussed with Dr. Brooks. Assessment/Plan SUMMARY OF FINDINGS: 1. Gastritis, status post biopsy. 2. Duodenitis with shallow duodenal ulceration, status post biopsy. RECOMMENDATIONS: okay for DC per GI standpoint Resume tube feeding. Follow up biopsy results and treat accordingly. Continue on PPI daily. The patient was seen and examined at bedside and all new and available data was reviewed in the patients chart. I agree with the above findings, impression and plan. (Patient seen earlier today. Signature stamp does not reflect patient encounter time.). - Kentrell Brooks MD Subjective Subjective limited Objective Last 24 Hour Vital Signs Date Time Temp Pulse Resp B/P (MAP) Pulse Ox O2 Delivery O2 Flow Rate FiO2 07/31/18 12:00 97.9 83 20 154/69 (97) 100 07/31/18 10:34 88 16 99 07/31/18 09:00 Nasal Cannula 2.0 07/31/18 08:00 98.2 93 20 157/54 (88) 100 07/31/18 07:33 97 Nasal Cannula 2.0 28 07/31/18 07:33 Nasal Cannula 2.0 28 07/31/18 04:00 98.9 88 16 132/53 (79) 99 07/31/18 00:00 98.0 83 16 125/52 (76) 100 07/30/18 21:00 Nasal Cannula 2.0 07/30/18 20:00 98.6 81 16 113/57 (75) 100 07/30/18 16:01 98.9 81 19 131/49 (76) 100 07/30/18 14:30 98.0 81 18 134/58 (83) 100 07/30/18 14:00 97.8 84 18 127/65 (85) 99 Intake and Output 07/30/18 07/31/18 19:00 07:00 Intake Total 1220.000 ml 1747.5 ml Output Total 800 ml 600 ml Balance 420.000 ml 1147.5 ml Free Water 70 ml 230 ml IV Total 790.000 ml 797.5 ml Tube Feeding 360 ml 720 ml Output Urine Total 800 ml 600 ml Laboratory Tests Test 07/31/18 12:40 Stool Occult Blood Pending Height (Feet): 5 Height (Inches): 6.00 Weight (Pounds): 137 General Appearance: WD/WN, no apparent distress, alert, thin Cardiovascular: normal rate Respiratory/Chest: normal breath sounds, no respiratory distress Abdominal Exam: normal bowel sounds, non tender, soft Extremities: normal range of motion, non-tender Supa Owens MASTER CONTROL OPERATOR Jul 31, 2018 13:41
[2018-07-31] MEDS ORDERED: 1/2 NS 1000ml IV ONE (16:21)
--- NOTE | 2018-08-03 10:48 | Discharge Summary ---
Discharge Summary Discharge Summary _ DATE OF ADMISSION: 07/23/2018 DATE OF DISCHARGE: 07/31/2018 REASON FOR ADMISSION: 82 years old male with history of type 2 diabetes mellitus, hypertension, chronic kidney disease, was brought to emergency department with complaint of altered mental status. Upon evaluation vital signs were stable. Laboratory workup revealed significant leukocytosis WBC 22.3. Hemoglobin 9.1 hematocrit 28.3. Lactic acid 1.2. Sodium 157. BUN 144 creatinine 3.1. Troponin negative. EKG revealed sinus rhythm with incomplete right bundle branch block. Influenza screen test was negative. Chest x-ray with evidence of possible left sided interstitial infiltrate. CT of the head revealed no acute intracranial pathology. Patient admitted with diagnoses of significant leukocytosis , possible sepsis , probable aspiration pneumonia, acute kidney injury , severe hypernatremia, underlying dementia. CONSULTANTS: GI specialist Dr. Brooks Administrative Law Judge dr Brower/dr Puckett [facility]: Patient admitted to telemetry floor. Patient started on IV fluids and empiric antibiotics. Renal parameters and electrolytes were closely monitored. Electrolytes corrected as needed, and nephrotoxins were avoided. Acute kidney injury resolved . Prior to discharge BUN 33 creatinine 1.7. Acute kidney injury was precipitated by infectious process along with dehydration leading to hypovolemia and use of ARB. Sodium down to 139. Patient was on empiric antibiotic for aspiration pneumonia. Supplemental oxygen provided as needed to keep pulse oximetry above 92%. Pulmonary toilet provided as needed. Patient was followed up with the chest x-ray. Blood culture negative. Prior to discharge leukocytosis down to 11.8. Noted drop in the hemoglobin and hematocrit. GI consult was requested. Patient undergone transfusion of 1 unit of packed red blood cells for hemoglobin 6.9 hematocrit 19.7. Anemia workup revealed no evidence of iron deficiency and was consistent with anemia of chronic disease , in this case anemia of chronic kidney disease. Stool OB 3-negative and 1 - positive. Patient undergone EGD with biopsy which revealed duodenitis with shallow duodenal ulcers, mild gastritis. Pathology of duodenum revealed focally active chronic duodenitis with erosion. Antral biopsy showed chronic inflammation without H. pylori infection. Strict aspiration precautions were maintained.. Tube feeding resumed. Patient was on PPI. Patient tolerated tube feeding. Podiatry consult was requested for noted onychogryphosis. Patient subsequently undergone debridement of bilateral toe nails. Patient clinically stabilized and was ready for discharge back to [facility] facility for continuation of care FINAL DIAGNOSES: Aspiration pneumonia Acute kidney injury -resolved Severe hyponatremia -resolved Anemia of chronic kidney disease , requiring blood transfusion Underlying dementia status post EGD with findings of gastritis, duodenitis and shallow duodenal ulcer Onychogryphosis, status post toenail 10 debridement DISCHARGE MEDICATIONS: See Medication Reconciliation list. DISCHARGE INSTRUCTIONS: Patient was discharged to the [facility] facility. Follow up with medical doctor at the facility. I have been assigned to dictate discharge summary for this account. I was not involved in the patient's management. Mari Edmond NP Aug 03, 2018 10:48
== END 2018-07-31 16:22 | DRG 178 ==
LOC: EDBD 13:33 → EMR 14:11 → EDBEDREQ 14:38 → 2E 18:08 → EDBEDREQ 19:05 → 4E 07-26 20:41
PROC: 30233N1 Transfusion of Nonautologous Red Blood Cells into Peripheral Vein, Percutaneous Approach (ICD-10-PCS; 2018-07-27)
PROC: 0DB98ZX Excision of Duodenum, Via Natural or Artificial Opening Endoscopic, Diagnostic (ICD-10-PCS; principal; 2018-07-30 12:49)
PROC: 0DB78ZX Excision of Stomach, Pylorus, Via Natural or Artificial Opening Endoscopic, Diagnostic (ICD-10-PCS; principal; 2018-07-30 12:49)
DX: J69.0 Pneumonitis due to inhalation of food and vomit (principal); N17.9 Acute kidney failure, unspecified; Z43.1 Encounter for attention to gastrostomy; E87.1 Hypo-osmolality and hyponatremia; I12.9 Hypertensive chronic kidney disease with stage 1 through stage 4 chronic kidney disease, or unspecified chronic kidney disease; E11.22 Type 2 diabetes mellitus with diabetic chronic kidney disease; N18.9 Chronic kidney disease, unspecified; M06.9 Rheumatoid arthritis, unspecified; R13.10 Dysphagia, unspecified; D63.1 Anemia in chronic kidney disease; K29.70 Gastritis, unspecified, without bleeding; K29.80 Duodenitis without bleeding; K26.9 Duodenal ulcer, unspecified as acute or chronic, without hemorrhage or perforation; L60.2 Onychogryphosis; E86.0 Dehydration
CPT/HCPCS: 36415; 70450; 71045; 80048; 80053; 80061; 80202; 81003; 82044; 82270; 82550; 82570; 82607; 82728; 82746; 82962; 83540; 83550; 83605; 83880; 84439; 84443; 84484; 85007; 85025; 85044; 85610; 85730; 86710; 86850; 86900; 86901; 86920; 87040; 87081; 93005; 94003; 94150; 94760; 96361; 96365; 96368; 99291; J1815; J2405; S5561

== ENCOUNTER 2018-08-07 11:53 | Inpatient (IN) | payer MEDICARE, OTHER ==
[~2018-08-07] VITALS: Ht 170.2 cm; Wt 68.0 kg
[~2018-08-07 11:53] MED LIST changes: +GEMFIBROZIL600 MG GT; +HEPARIN SO5000 UNIT2 SUBQ; +LEVEMIR FL100 UNIT/1 SUBQ; +METOCLOPRA10 MG/10 M ORAL; +NOVOLOG100 UNIT/3 SUBQ; +NOVOLOG100 UNITS1 SUBQ; +PROCRIT20000 UNI2 SUBQ; +PROTONIX20 MG ORAL
[2018-08-07] MEDS ORDERED: ACETAMINOPHEN325 M1 GT (12:02)
[2018-08-07] MEDS ORDERED: LACTULOSE10 GM/154 PO (12:02)
[2018-08-07 12:03] VITALS: BP 134/55
[2018-08-07] MEDS ORDERED: Ampicillin/Sulbactam Sod 3 GM in NS 110 ML IV SCH (12:15)
[2018-08-07 12:46] LABS: BASOPHILS % (AUTO) 2.2 % (0.0-2.0); EOSINOPHILS % (AUTO) 3.1 % (0.0-3.0); HEMATOCRIT 23.6 % (42.0-52.0); HEMOGLOBIN 8.1 G/DL (14.2-18.0); LYMPHOCYTES % (AUTO) 13.5 % (20.0-45.0); MEAN CORPUSCULAR VOLUME 95 FL (80-99); NEUTROPHILS % (AUTO) 72.1 % (45.0-75.0); PLATELET COUNT 327 K/UL (150-450); RED BLOOD COUNT 2.48 M/UL (4.70-6.10); RED CELL DISTRIBUTION WIDTH 14.4 % (11.6-14.8); WHITE BLOOD COUNT 10.3 K/UL (4.8-10.8)
[2018-08-07 12:56] LABS: ANION GAP 8 mmol/L (5-15); BLOOD UREA NITROGEN 73 mg/dL (7-18); CARBON DIOXIDE 28 MMOL/L (21-32); CHLORIDE 99 MMOL/L (98-107); CREATININE 2.2 MG/DL (0.55-1.30); POTASSIUM 5.4 MMOL/L (3.5-5.1); SODIUM 135 MMOL/L (136-145)
[2018-08-07 13:09] LABS: ALANINE AMINOTRANSFERASE 12 U/L (12-78); ALBUMIN 2.2 G/DL (3.4-5.0); ALBUMIN/GLOBULIN RATIO 0.3 (1.0-2.7); ALKALINE PHOSPHATASE 115 U/L (46-116); ASPARTATE AMINO TRANSFERASE 24 U/L (15-37); BILIRUBIN,TOTAL 0.4 MG/DL (0.2-1.0); CKMB < 0.5 NG/ML (0.0-3.6); CREATINE KINASE 22 U/L (26-308)
--- NOTE | 2018-08-07 13:46 | Diagnostic Imaging Report ---
Indication: Dyspnea Comparison: 07/26/2018 A single view chest radiograph was obtained. Findings: There is no change. Basilar interstitial opacities noted especially at the left lung base. Heart size is borderline enlarged and stable. IMPRESSION: No change from the prior study
--- NOTE | 2018-08-07 13:59 | Emergency Room Report ---
History of Present Illness General Chief Complaint: Abnormal Labs Source: Patient Present Illness HPI 82-year-old male sent from the care home for low hemoglobin and low-grade fever of 100, patient is debilitated chronically is unable to give any history. Allergies: Coded Allergies: No Known Allergies (Verified , 12/28/06) Patient History Limited by: medical condition Past Medical History: see triage record Reviewed Nursing Documentation: PMH: Agreed; PSxH: Agreed Nursing Documentation-PMH Past Medical History: No History, Except For Hx Cardiac Problems: No Hx Hypertension: Yes Hx Diabetes: Yes Hx Cancer: No Hx Dialysis: No - CKD Hx Neurological Problems: Yes - ALOC Review of Systems All Other Systems: limited Physical Exam Vital Signs Date Time Temp Pulse Resp B/P (MAP) Pulse Ox O2 Delivery O2 Flow Rate FiO2 08/07/18 11:50 98.8 95 20 133/66 97 Nasal Cannula 2.0 Sp02 EP Interpretation: reviewed, normal General Appearance: no apparent distress, alert, non-toxic Head: normocephalic Eyes: bilateral eye normal inspection, bilateral eye PERRL ENT: normal ENT inspection, dry mucus membranes Neck: normal inspection, full range of motion, supple, supple/symm/no masses Respiratory: chest non-tender, lungs clear, normal breath sounds, no respiratory distress, no retraction, no accessory muscle use, chest symmetrical , palpation of chest normal Cardiovascular #1: normal peripheral pulses, regular rate, rhythm, no edema, no gallop, no JVD, no murmur, no rub Cardiovascular #2: 2+ radial (R), 2+ radial (L) Gastrointestinal: normal inspection, non tender, soft, no mass, no guarding, no rebound, other - PEG tube C/D/I Rectal: deferred Genitourinary: normal inspection, no CVA tenderness Musculoskeletal: back normal, gait/station normal, normal range of motion, non- tender, no calf tenderness, other - contracted extremities Neurologic: alert, responsive Skin: normal color, no rash, warm/dry, normal turgor Lymphatic: no adenopathy Medical Decision Making Diagnostic Impression: Primary Impression: Abnormal laboratory test result Additional Impression: Anemia ER Course Patietn treated for possible infection with unasyn, but no obvous source seen. Hgb at 8, will admit to Dr. Foster for further monitoring. EKG Diagnostic Results EKG Time: 12:27 EP Interpretation: no stemei, RBBB Rate: normal Rhythm: NSR ST Segments: no acute changes ASA given to the pt in ED: No Rhythm Strip Diag. Results Rhythm Strip Time: 13:58 EP Interpretation: yes Rate: 85 Rhythm: NSR, no PVC's, no ectopy Chest X-Ray Diagnostic Results Chest X-Ray Diagnostic Results : Chest X-Ray Ordered: Yes # of Views/Limited/Complete: 1 View Indication: Other - fever EP Interpretation: Yes PA Xray: Interpretation reviewed Interpretation: no consolidation, no effusion, no pneumothorax, no acute cardiopulmonary disease Impression: No acute disease Electronically Signed by: Susy Garcia MD Last Vital Signs Date Time Temp Pulse Resp B/P (MAP) Pulse Ox O2 Delivery O2 Flow Rate FiO2 08/07/18 12:03 98.7 89 25 134/55 100 Nasal Cannula 2.0 Disposition: ADMITTED INPATIENT Referrals: Ann López MD (PCP) SUSY GARCIA M.D Aug 07, 2018 13:59
[2018-08-07 14:22] LABS: APPEARANCE,URINE SLIGHTLY CLOUDY; BILIRUBIN, URINE NEGATIVE (NEGATIVE); COLOR,URINE YELLOW; GLUCOSE, URINE (UA) NEGATIVE (NEGATIVE); KETONES,URINE NEGATIVE (NEGATIVE); LEUKOCYTE ESTERASE ,URINE 2+ (NEGATIVE); NITRITE,URINE NEGATIVE (NEGATIVE); PH,URINE 7 (4.5-8.0); PROTEIN,URINE 3+ (NEGATIVE); UROBILINOGEN,URINE NORMAL MG/DL (0.0-1.0)
[2018-08-07 14:34] VITALS: BP 147/55
[2018-08-07 20:00] VITALS: BP 131/68
[2018-08-07] MEDS: Heparin 5000 units/ml inj SUBQ SCH (20:55)
[2018-08-08] VITALS: BP 136/61
[2018-08-08 04:00] VITALS: BP 133/66
[2018-08-08 08:10] VITALS: BP 100/56
[2018-08-08] MEDS: Heparin 5000 units/ml inj SUBQ SCH ×2 (08:26→21:10)
[2018-08-08] MEDS: Pantoprazole Inj IVP SCH (08:27)
[2018-08-08 08:36] LABS: HEMATOCRIT 22.5 % (42.0-52.0); HEMOGLOBIN 7.4 G/DL (14.2-18.0); MEAN CORPUSCULAR VOLUME 96 FL (80-99); PLATELET COUNT 419 K/UL (150-450); RED BLOOD COUNT 2.35 M/UL (4.70-6.10); RED CELL DISTRIBUTION WIDTH 14.5 % (11.6-14.8); WHITE BLOOD COUNT 11.7 K/UL (4.8-10.8)
[2018-08-08 08:58] LABS: ANION GAP 8 mmol/L (5-15); BLOOD UREA NITROGEN 54 mg/dL (7-18); CALCIUM 9.1 MG/DL (8.5-10.1); CARBON DIOXIDE 25 MMOL/L (21-32); CHLORIDE 103 MMOL/L (98-107); CREATININE 1.7 MG/DL (0.55-1.30); POTASSIUM 5.4 MMOL/L (3.5-5.1); SODIUM 136 MMOL/L (136-145)
--- NOTE | 2018-08-08 11:17 | History and Physical Report ---
DATE OF ADMISSION: 08/07/2018 CHIEF COMPLAINT: Abnormal laboratory results. HISTORY OF PRESENT ILLNESS: This is an 82-year-old [place] M[place] male, who resides at [facility]. The patient is repeatedly admitted with gastrointestinal bleeding and abnormal laboratory results from his fpc. As usual, the fpc called me about hypernatremia and very low hemoglobin. The patient was transferred to this hospital emergency department for further evaluation. During the emergency room stay, the patient had coffee-ground emesis. PAST MEDICAL HISTORY: 1. Organic brain syndrome. 2. Status post multiple admissions for upper gastrointestinal bleeding due to gastritis. 3. Status post insertion of the percutaneous jejunostomy. 4. Chronic kidney disease, stage 3. 5. Anemia of chronic kidney disease. 6. Severe esophagitis due to reflux. 7. Type 2 diabetes mellitus. 8. History of common bile duct dilatation, cholecystectomy. 9. History of small bowel obstruction. MEDICATIONS: Epogen, gemfibrozil, subcutaneous heparin, NovoLog FlexPen q. 6 hours, Levemir 12 units at bedtime, Glucerna tube feeding, Tylenol p.r.n., zinc sulfate, multivitamins, and vitamin C. ALLERGIES: No known drug allergies. FAMILY HISTORY: Unobtainable due to his mental status. SOCIAL HISTORY: Unobtainable due to his mental status. REVIEW OF SYSTEMS: Unobtainable due to his mental status. PHYSICAL EXAMINATION: GENERAL: This is an elderly demented [place] M[place]ese male, who is in no acute distress. VITAL SIGNS: Blood pressure 100/56 left arm, pulse 91 and regular, respirations 20, and temperature 98.6 axillary. HEENT: The head is normocephalic and atraumatic. Pupils are equal, round, and reactive to light. He has very poor dentition. NECK: Supple. Trachea midline. There was no lymphadenopathy or thyromegaly. LUNGS: There are few bilateral rhonchi. HEART: Regular rate and rhythm without rubs, murmurs, or gallops. ABDOMEN: Distended, soft, nontender. Bowel sounds were active. He has jejunostomy. EXTREMITIES: He has advanced muscle wasting. No clubbing, cyanosis, or edema. NEUROLOGICAL: He is alert, but confused. There were no gross focal findings. LABORATORY AND ANCILLARY DATA: Yesterday on admission, his white count was 10,300, hematocrit 23.6, and platelet count 327. Today, white count 11,700, hematocrit dropped to 22.5. Serum chemistry on admission yesterday, sodium 135, potassium 5.4. Today, potassium remains 5.4 and sodium 136. BUN yesterday 73, today is 54. Creatinine yesterday 2.1 today 1.7. His magnesium is today 2.2 and albumin 2.2. Chest x-ray, basilar interstitial opacity. ASSESSMENT: 1. Recurrent upper gastrointestinal bleeding. 2. Volume repletion. 3. Recurrent septicemia. 4. Organic brain syndrome. 5. Status post multiple admissions for upper gastrointestinal bleeding due to gastritis. 6. Status post insertion of the percutaneous jejunostomy. 7. Chronic kidney disease, stage 3. 8. Anemia of chronic kidney disease. 9. Severe esophagitis due to reflux. 10. Type 2 diabetes mellitus. 11. History of common bile duct dilatation, cholecystectomy. 12. History of small bowel obstruction. PLAN: 1. IV fluid rehydration. 2. ID consult. 3. Antibiotics per ID consult. 4. GI consult. Ann López M.D. DR: ROBE JOB#: [id number] CC: SARAVANAN
[2018-08-08 11:38] VITALS: BP 129/57
--- NOTE | 2018-08-08 15:01 | Consultation ---
DATE OF CONSULTATION: 08/08/2018 INFECTIOUS DISEASES CONSULTATION: CONSULTING PHYSICIAN: Len Sarkar M.D. REFERRING PHYSICIAN: Ann López M.D. REASON FOR CONSULTATION: Pneumonia. HISTORY OF PRESENT ILLNESS: The patient is an 82-year-old gentleman with history of hypertension, diabetes, chronic kidney disease who comes in with altered level of consciousness. He was found to have a fever as well as anemia and as well as pneumonia. An infectious diseases consultation has been obtained for antibiotics. PAST MEDICAL HISTORY: 1. History of hypertension. 2. Diabetes. 3. Chronic kidney disease. SOCIAL HISTORY: Unknown. FAMILY HISTORY: Unknown. REVIEW OF SYSTEMS: Unable to obtain currently. MEDICATIONS: As an inpatient, he is on Protonix and Zosyn. ALLERGIES: No known drug allergies. PHYSICAL EXAMINATION: VITAL SIGNS: Temperature of 98.6, T-max of 98.9, pulse of 91, respiratory rate 20, blood pressure 100/56, O2 saturation of 96%. HEENT: Pupils equally reactive to light and accommodation. Mouth appears clean without thrush. NECK: Supple. No adenopathy. No JVD. CARDIOVASCULAR: Regular rate and rhythm. No murmurs. LUNGS: Clear to auscultation bilaterally. No crackles. No wheezes. ABDOMEN: Soft and nontender. No organomegaly. G-tube site appears clean. EXTREMITIES: No cyanosis, no clubbing, no edema. SKIN: Sacral erythema noted. LABORATORY AND DIAGNOSTIC DATA: White count 11.7, hemoglobin 7.4, hematocrit 22.5, MCV 96, platelet count of 419 with neutrophils of 74%. Sodium 135, potassium 5.4, chloride 103, bicarb 25, BUN 54, creatinine 1.7. BUN of 73 yesterday and creatinine of 2.2 yesterday. Calcium today 9.1. Liver function tests on 08/07/2018 total bilirubin 0.4, AST 24, ALT 12, alkaline phosphatase 115. CK of 22, CK-MB less than 0.5. Troponin 0.004. Total protein 9.3. Albumin 2.2. Sputum cultures are pending. Urine cultures are negative. Nasal swab was negative for influenza A and B. UA showing 60 to 80 white cells, leukocyte esterase 2+, nitrite negative. Chest x-ray showing basilar interstitial opacities noted especially of the left lung base. ASSESSMENT: This is an 82-year-old gentleman with history of hypertension, and diabetes who comes in with altered level of consciousness and is found to have. 1. Urinary tract infection. 2. He probably has an aspiration pneumonia. 3. Diabetes. 4. Hypertension. 5. Renal failure is improving. PLAN: 1. Continue Zosyn for now. 2. We will order sputum cultures. 3. We will follow up cultures and adjust antibiotics accordingly. I would like to thank, Dr. López for this consultation. Len Sarkar M.D. DR: Elizabet JOB#: [id number] CC: Ann López M.D.; Fax#: [phone]
--- NOTE | 2018-08-08 15:16 | Consultation ---
DATE OF CONSULTATION: 08/08/2018 CHIEF COMPLAINT: Anemia. HISTORY OF PRESENT ILLNESS: Most of history per chart. The patient is an 82-year-old male, known to me from prior admissions. I know to him very well. I have been following him for at least over a year now. He has been having chronic anemia requiring blood transfusion. Last admission, he had an endoscopy done which showed evidence of gastritis. H pylori negative, few shallow duodenal ulcerations. The patient has chronic the failure to thrive and dysphagia requiring G-tube placement. He is getting feeding through the G-tube. 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 Admitted to the hospital with recurrent anemia. Of note, his endoscopy was just done last month. According to the nurses, there is no evidence of any active GI bleeding. No melena. No hematochezia. PAST MEDICAL HISTORY: Significant for: 1. History of diabetes. 2. Dysphagia requiring G-tube placement. 3. Pancreatitis, hyperlipidemia. 4. Gallstones. 5. Choledocholithiasis. 6. Chronic renal insufficiency. 7. Diabetes. 8. Dementia. 9. Spinal stenosis. ALLERGIES: No known drug allergies. MEDICATIONS: Please see medication reconciliation list. SOCIAL HISTORY: Currently lives in a snf. No history of tobacco, alcohol, or drug abuse. FAMILY HISTORY: Noncontributory. REVIEW OF SYSTEMS: Unable to obtain. PHYSICAL EXAMINATION: VITAL SIGNS: Temperature is 98.6, pulse 91, respirations 20, and blood pressure is 100/56. HEENT: Normocephalic and atraumatic. Sclerae pale. NECK: Supple. No evidence of lymphadenopathy. CARDIOVASCULAR: Regular rate and rhythm. Plus S1 and S2. LUNGS: Decreased breath sounds bilaterally based on supine exam. ABDOMEN: Soft and nontender. G-tube in place. No rebound. No guarding. No peritoneal sign. EXTREMITIES: No cyanosis, no clubbing, no edema. LABORATORY AND DIAGNOSTIC DATA: Labs, white count 11.7, hemoglobin 7.4, hematocrit 22.5, platelet count 419. Of note on discharge on 07/29/2018 hemoglobin was 7.1. ASSESSMENT AND PLAN: This is an 82-year-old male with anemia profound same as last admission, no significant drop in hemoglobin and hematocrit per chart. He was discharged on 07/29/2018 with hemoglobin 7.1 and today's hemoglobin is 7.4. I doubt the patient has active GI bleeding. He already had endoscopy on last admission which was not showing any active bleeding. Our plan will be to resume tube feeding. Continue on PPI daily. Send the stool for OB. If the stool OB comes back positive, we will consider colonoscopy. Meanwhile, the patient to to get a two units of blood transfusions. Kentrell Brooks M.D. DR: Nigel JOB#: [id number] CC:
[2018-08-08 16:00] VITALS: BP 134/69
[2018-08-08 20:00] VITALS: BP 118/72
[2018-08-09] VITALS: BP 140/62
[2018-08-09 04:00] VITALS: BP 129/67
[2018-08-09 07:52] LABS: EOSINOPHILS % (AUTO) 2.5 % (0.0-3.0); HEMATOCRIT 30.6 % (42.0-52.0); LYMPHOCYTES % (AUTO) 10.7 % (20.0-45.0); MEAN CORPUSCULAR VOLUME 91 FL (80-99); MONOCYTES % (AUTO) 8.8 % (1.0-10.0); PLATELET COUNT 382 K/UL (150-450); RED BLOOD COUNT 3.37 M/UL (4.70-6.10); RED CELL DISTRIBUTION WIDTH 15.2 % (11.6-14.8)
[2018-08-09 08:00] VITALS: BP 140/66
[2018-08-09 08:13] LABS: AMYLASE 63 U/L (25-115); ANION GAP 9 mmol/L (5-15); BLOOD UREA NITROGEN 42 mg/dL (7-18); CALCIUM 8.8 MG/DL (8.5-10.1); CARBON DIOXIDE 24 MMOL/L (21-32); CHLORIDE 101 MMOL/L (98-107); CHOLESTEROL 154 MG/DL (< 200); CREATININE 1.5 MG/DL (0.55-1.30); HDL CHOLESTEROL 27 MG/DL (40-60); POTASSIUM 4.7 MMOL/L (3.5-5.1); SODIUM 134 MMOL/L (136-145); TRIGLYCERIDES 470 MG/DL (30-150)
--- NOTE | 2018-08-09 08:32 | General Progress Note ---
Assessment/Plan Assessment/Plan GI blee- s/p transfusion. For endoscopies? [facility] GI> Volume depletion - IVF Sepsis - ID Subjective Allergies: Coded Allergies: No Known Allergies (Verified , 12/28/06) Subjective Alert but confused. Objective Last 24 Hour Vital Signs Date Time Temp Pulse Resp B/P (MAP) Pulse Ox O2 Delivery O2 Flow Rate FiO2 08/09/18 04:00 97.4 82 17 129/67 (87) 100 08/09/18 04:00 80 08/09/18 00:00 97.5 79 18 140/62 (88) 100 08/09/18 00:00 71 08/08/18 21:00 Room Air 08/08/18 20:00 78 08/08/18 20:00 97.6 83 18 118/72 (87) 99 08/08/18 16:00 98.0 92 20 134/69 (90) 99 08/08/18 16:00 78 08/08/18 12:00 88 08/08/18 11:38 98.2 87 20 129/57 (81) 96 08/08/18 09:12 Room Air Intake and Output 08/08/18 08/09/18 18:59 06:59 Intake Total 1205 ml 1457 ml Output Total 100 ml Balance 1105 ml 1457 ml Intake Free Water 90 ml IV Total 675 ml 837 ml Tube Feeding 280 ml 530 ml Blood Product 250 ml Output Urine Total 100 ml # Voids 1 # Bowel Movements 4 2 Laboratory Tests 08/08/18 17:20: Stool Occult Blood [Pending] 08/09/18 05:34: White Blood Count 10.0, Red Blood Count 3.37L, Hemoglobin 10.0#L, Hematocrit 30.6#L, Mean Corpuscular Volume 91, Mean Corpuscular Hemoglobin 29.8, Mean Corpuscular Hemoglobin Concent 32.8, Red Cell Distribution Width 15.2H, Platelet Count 382, Mean Platelet Volume 5.4L, Neutrophils (%) (Auto) 76.0H, Lymphocytes (%) (Auto) 10.7L, Monocytes (%) (Auto) 8.8, Eosinophils (%) (Auto) 2.5, Basophils (%) (Auto) 2.0, Sodium Level 134L, Potassium Level 4.7, Chloride Level 101, Carbon Dioxide Level 24, Anion Gap 9, Blood Urea Nitrogen 42H, Creatinine 1.5H, Estimat Glomerular Filtration Rate , Glucose Level 98, Calcium Level 8.8, Triglycerides Level 470H, Cholesterol Level 154, LDL Cholesterol 65, HDL Cholesterol 27L, Cholesterol/HDL Ratio 5.7H, Amylase Level 63, Lipase 153 Height (Feet): 5 Height (Inches): 7.00 Weight (Pounds): 150 Objective CV RR Lungs CTA Abd SNT BS + E No CCE Ann López MD Aug 09, 2018 08:32
[2018-08-09] MEDS: Pantoprazole Inj IVP SCH (08:34)
[2018-08-09] MEDS: Heparin 5000 units/ml inj SUBQ SCH ×2 (08:39→20:52)
--- NOTE | 2018-08-09 09:38 | General Progress Note ---
Assessment/Plan Problem List: (1) Renal insufficiency ICD Codes: N28.9 - Disorder of kidney and ureter, unspecified SNOMED: 806627975, 861906840 (2) DM (3) Anemia ICD Codes: D64.9 - Anemia, unspecified SNOMED: 705706193 (4) G tube feedings ICD Codes: Z93.1 - Gastrostomy status SNOMED: 192214351, 262667255 Assessment/Plan s/p recent EGD no active GIB on ppi s/p 2 units PRBC on GTF on tricor fu labs Subjective ROS Limited/Unobtainable: Yes Allergies: Coded Allergies: No Known Allergies (Verified , 12/28/06) Objective Last 24 Hour Vital Signs Date Time Temp Pulse Resp B/P (MAP) Pulse Ox O2 Delivery O2 Flow Rate FiO2 08/09/18 04:00 97.4 82 17 129/67 (87) 100 08/09/18 04:00 80 08/09/18 00:00 97.5 79 18 140/62 (88) 100 08/09/18 00:00 71 08/08/18 21:00 Room Air 08/08/18 20:00 78 08/08/18 20:00 97.6 83 18 118/72 (87) 99 08/08/18 16:00 98.0 92 20 134/69 (90) 99 08/08/18 16:00 78 08/08/18 12:00 88 08/08/18 11:38 98.2 87 20 129/57 (81) 96 Intake and Output 08/08/18 08/09/18 18:59 06:59 Intake Total 1205 ml 1457 ml Output Total 100 ml Balance 1105 ml 1457 ml Intake Free Water 90 ml IV Total 675 ml 837 ml Tube Feeding 280 ml 530 ml Blood Product 250 ml Output Urine Total 100 ml # Voids 1 # Bowel Movements 4 2 Laboratory Tests 08/08/18 17:20: Stool Occult Blood [Pending] 08/09/18 05:34: White Blood Count 10.0, Red Blood Count 3.37L, Hemoglobin 10.0#L, Hematocrit 30.6#L, Mean Corpuscular Volume 91, Mean Corpuscular Hemoglobin 29.8, Mean Corpuscular Hemoglobin Concent 32.8, Red Cell Distribution Width 15.2H, Platelet Count 382, Mean Platelet Volume 5.4L, Neutrophils (%) (Auto) 76.0H, Lymphocytes (%) (Auto) 10.7L, Monocytes (%) (Auto) 8.8, Eosinophils (%) (Auto) 2.5, Basophils (%) (Auto) 2.0, Sodium Level 134L, Potassium Level 4.7, Chloride Level 101, Carbon Dioxide Level 24, Anion Gap 9, Blood Urea Nitrogen 42H, Creatinine 1.5H, Estimat Glomerular Filtration Rate , Glucose Level 98, Calcium Level 8.8, Triglycerides Level 470H, Cholesterol Level 154, LDL Cholesterol 65, HDL Cholesterol 27L, Cholesterol/HDL Ratio 5.7H, Amylase Level 63, Lipase 153 Height (Feet): 5 Height (Inches): 7.00 Weight (Pounds): 150 General Appearance: no apparent distress EENT: normal ENT inspection Neck: supple Cardiovascular: normal rate Respiratory/Chest: decreased breath sounds Abdomen: normal bowel sounds, non tender, soft Extremities: non-tender Kentrell Brooks MD Aug 09, 2018 09:38
[2018-08-09 11:47] VITALS: BP 130/70
--- NOTE | 2018-08-09 11:58 | Infectious Diseases Prog Note ---
Assessment/Plan Assessment/Plan A; Pneumonia Acute renal failure DM GI bleeding MRSA colonization VRE colonization Anemia Dementia P: Continue Zosyn Subjective ROS Limited/Unobtainable: Yes Constitutional: Reports: no symptoms Allergies: Coded Allergies: No Known Allergies (Verified , 12/28/06) Objective Vital Signs Last 24 Hour Vital Signs Date Time Temp Pulse Resp B/P (MAP) Pulse Ox O2 Delivery O2 Flow Rate FiO2 08/09/18 11:47 98.1 80 19 130/70 (90) 98 08/09/18 09:00 Room Air 08/09/18 08:00 98.0 85 18 140/66 (90) 98 08/09/18 07:57 82 08/09/18 04:00 97.4 82 17 129/67 (87) 100 08/09/18 04:00 80 08/09/18 00:00 97.5 79 18 140/62 (88) 100 08/09/18 00:00 71 08/08/18 21:00 Room Air 08/08/18 20:00 78 08/08/18 20:00 97.6 83 18 118/72 (87) 99 08/08/18 16:00 98.0 92 20 134/69 (90) 99 08/08/18 16:00 78 08/08/18 12:00 88 Height (Feet): 5 Height (Inches): 7.00 Weight (Pounds): 150 General Appearance: no acute distress HEENT: mucous membranes moist Respiratory/Chest: lungs clear Cardiovascular: normal rate Abdomen: soft, non tender, other - GT feeding Extremities: no edema Skin: other - R forearm bruise Neurologic/Psychiatric: unresponsiveness Microbiology Date/Time Source Procedure Growth Status 08/07/18 12:40 Blood Blood Culture - Preliminary NO GROWTH AFTER 24 HOURS Resulted 08/07/18 12:25 Blood Blood Culture - Preliminary NO GROWTH AFTER 24 HOURS Resulted 08/08/18 00:00 Sputum Gram Stain - Final Resulted 08/08/18 00:00 Sputum Sputum Culture Pending Resulted 08/07/18 12:36 Nasal Nares MRSA Culture - Final Staphylococcus Aureus - Mrsa Complete 08/07/18 12:24 Nasal Nares Influenza Types A,B Antigen (HENNA) - Final Complete 08/07/18 13:30 Urine,Clean Catch Urine Culture - Final Akiko Albicans Complete 08/07/18 12:36 Rectum VRE Culture - Final Enterococcus Faecalis - Vre Enterococcus Faecium - Vre Complete Laboratory Tests Test 08/08/18 17:20 08/09/18 05:34 Stool Occult Blood Positive (NEGATIVE) White Blood Count 10.0 K/UL (4.8-10.8) Red Blood Count 3.37 M/UL (4.70-6.10) L Hemoglobin 10.0 G/DL (14.2-18.0) #L Hematocrit 30.6 % (42.0-52.0) #L Mean Corpuscular Volume 91 FL (80-99) Mean Corpuscular Hemoglobin 29.8 PG (27.0-31.0) Mean Corpuscular Hemoglobin Concent 32.8 G/DL (32.0-36.0) Red Cell Distribution Width 15.2 % (11.6-14.8) H Platelet Count 382 K/UL (150-450) Mean Platelet Volume 5.4 FL (6.5-10.1) L Neutrophils (%) (Auto) 76.0 % (45.0-75.0) H Lymphocytes (%) (Auto) 10.7 % (20.0-45.0) L Monocytes (%) (Auto) 8.8 % (1.0-10.0) Eosinophils (%) (Auto) 2.5 % (0.0-3.0) Basophils (%) (Auto) 2.0 % (0.0-2.0) Sodium Level 134 MMOL/L (136-145) L Potassium Level 4.7 MMOL/L (3.5-5.1) Chloride Level 101 MMOL/L (98-107) Carbon Dioxide Level 24 MMOL/L (21-32) Anion Gap 9 mmol/L (5-15) Blood Urea Nitrogen 42 mg/dL (7-18) H Creatinine 1.5 MG/DL (0.55-1.30) H Estimat Glomerular Filtration Rate mL/min (>60) Glucose Level 98 MG/DL (74-106) Calcium Level 8.8 MG/DL (8.5-10.1) Triglycerides Level 470 MG/DL (30-150) H Cholesterol Level 154 MG/DL (< 200) LDL Cholesterol 65 mg/dL (<100) HDL Cholesterol 27 MG/DL (40-60) L Cholesterol/HDL Ratio 5.7 (3.3-4.4) H Amylase Level 63 U/L (25-115) Lipase 153 U/L (73-393) Current Medications Medications (Trade) Dose Ordered Sig/Jarrod Route PRN Reason Start Time Stop Time Status Last Admin Dose Admin Fenofibrate (Tricor) 134 mg DAILY ORAL 08/09/18 09:00 09/08/18 08:59 08/09/18 08:33 Heparin Sodium (Porcine) (Heparin 5000 units/ml) 5,000 units EVERY 12 HOURS SUBQ 08/07/18 21:00 09/06/18 20:59 08/09/18 08:39 Pantoprazole (Protonix) 40 mg DAILY IVP 08/08/18 09:00 09/07/18 08:59 08/09/18 08:34 Piperacillin Sod/ Tazobactam Sod 3.375 gm/Dextrose 100 ml @ 25 mls/hr EVERY 8 HOURS IV 08/08/18 22:00 08/15/18 21:59 08/09/18 05:52 Sodium Chloride 1,000 ml @ 75 mls/hr [id number] IV 08/07/18 19:30 09/06/18 19:29 08/09/18 11:41 Gerald Conway MD Aug 09, 2018 11:58
[2018-08-09 16:00] VITALS: BP 142/62
[2018-08-09 20:00] VITALS: BP 149/61
[2018-08-10] VITALS: BP 139/80
[2018-08-10 04:00] VITALS: BP 140/65
[2018-08-10 07:56] VITALS: BP 133/61
[2018-08-10 08:50] LABS: BASOPHILS % (AUTO) 2.6 % (0.0-2.0); EOSINOPHILS % (AUTO) 2.5 % (0.0-3.0); HEMATOCRIT 26.5 % (42.0-52.0); HEMOGLOBIN 9.3 G/DL (14.2-18.0); LYMPHOCYTES % (AUTO) 11.7 % (20.0-45.0); MEAN CORPUSCULAR VOLUME 90 FL (80-99); MONOCYTES % (AUTO) 9.8 % (1.0-10.0); NEUTROPHILS % (AUTO) 73.4 % (45.0-75.0); PLATELET COUNT 356 K/UL (150-450); RED BLOOD COUNT 2.95 M/UL (4.70-6.10); RED CELL DISTRIBUTION WIDTH 14.7 % (11.6-14.8)
[2018-08-10] MEDS: Pantoprazole Inj IVP SCH (08:56)
[2018-08-10] MEDS: Heparin 5000 units/ml inj SUBQ SCH (08:57)
--- NOTE | 2018-08-10 10:45 | GI Progress Note ---
Assessment/Plan Problems: (1) Occult blood in stools ICD Codes: R19.5 - Other fecal abnormalities SNOMED: 43420158, 074084226 (2) G tube feedings ICD Codes: Z93.1 - Gastrostomy status SNOMED: 299611456, 109560988 (3) Anemia ICD Codes: D64.9 - Anemia, unspecified SNOMED: 165113420 Status: stable Status Narrative Discussed with Dr. Brooks. Assessment/Plan s/p recent EGD OB stool positive on ppi s/p 2 units PRBC on GTF on tricor colonoscopy scheduled for tomorrow. - CLD + IVFs - hold all blood thinners will follow with additional recs post procedure fu labs The patient was seen and examined at bedside and all new and available data was reviewed in the patients chart. I agree with the above findings, impression and plan. (Patient seen earlier today. Signature stamp does not reflect patient encounter time.). - Kentrell Brooks MD Subjective Subjective limited Objective Last 24 Hour Vital Signs Date Time Temp Pulse Resp B/P (MAP) Pulse Ox O2 Delivery O2 Flow Rate FiO2 08/10/18 09:00 Room Air 08/10/18 08:05 87 08/10/18 07:56 98.2 84 20 133/61 (85) 99 08/10/18 04:00 97.0 81 20 140/65 (90) 100 08/10/18 04:00 77 08/10/18 00:00 97.0 84 20 139/80 (99) 96 08/10/18 00:00 83 08/09/18 21:00 Room Air 08/09/18 20:00 70 08/09/18 20:00 98.3 81 20 149/61 (90) 96 08/09/18 16:00 98.9 82 17 142/62 (88) 97 08/09/18 15:59 83 08/09/18 11:53 79 08/09/18 11:47 98.1 80 19 130/70 (90) 98 Intake and Output 08/09/18 08/10/18 18:59 06:59 Intake Total 1130 ml 1210 ml Output Total 600 ml Balance 1130 ml 610 ml Intake Free Water 50 ml IV Total 600 ml 550 ml Tube Feeding 480 ml 660 ml Output Urine Total 600 ml # Bowel Movements 2 1 Laboratory Tests Test 08/10/18 08:30 White Blood Count 10.0 K/UL (4.8-10.8) Red Blood Count 2.95 M/UL (4.70-6.10) L Hemoglobin 9.3 G/DL (14.2-18.0) L Hematocrit 26.5 % (42.0-52.0) L Mean Corpuscular Volume 90 FL (80-99) Mean Corpuscular Hemoglobin 31.6 PG (27.0-31.0) H Mean Corpuscular Hemoglobin Concent 35.1 G/DL (32.0-36.0) Red Cell Distribution Width 14.7 % (11.6-14.8) Platelet Count 356 K/UL (150-450) Mean Platelet Volume 5.2 FL (6.5-10.1) L Neutrophils (%) (Auto) 73.4 % (45.0-75.0) Lymphocytes (%) (Auto) 11.7 % (20.0-45.0) L Monocytes (%) (Auto) 9.8 % (1.0-10.0) Eosinophils (%) (Auto) 2.5 % (0.0-3.0) Basophils (%) (Auto) 2.6 % (0.0-2.0) H Height (Feet): 5 Height (Inches): 7.00 Weight (Pounds): 150 General Appearance: alert Cardiovascular: normal rate Respiratory/Chest: normal breath sounds, no respiratory distress Abdominal Exam: non tender, soft, GT site - c/d/i Supa Owens [employer] Aug 10, 2018 10:45
--- NOTE | 2018-08-10 10:45 | Infectious Diseases Prog Note ---
Assessment/Plan Assessment/Plan antibiotics : zosyn A 1. gram negative pneumonia 2. fungal UTI 3. diabetes mellitus 4. hypertension 5. 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 continue zosyn 2. start fluconazole 3. will follow up cultures Subjective ROS Limited/Unobtainable: Yes Allergies: Coded Allergies: No Known Allergies (Verified , 12/28/06) Objective Vital Signs Last 24 Hour Vital Signs Date Time Temp Pulse Resp B/P (MAP) Pulse Ox O2 Delivery O2 Flow Rate FiO2 08/10/18 09:00 Room Air 08/10/18 08:05 87 08/10/18 07:56 98.2 84 20 133/61 (85) 99 08/10/18 04:00 97.0 81 20 140/65 (90) 100 08/10/18 04:00 77 08/10/18 00:00 97.0 84 20 139/80 (99) 96 08/10/18 00:00 83 08/09/18 21:00 Room Air 08/09/18 20:00 70 08/09/18 20:00 98.3 81 20 149/61 (90) 96 08/09/18 16:00 98.9 82 17 142/62 (88) 97 08/09/18 15:59 83 08/09/18 11:53 79 08/09/18 11:47 98.1 80 19 130/70 (90) 98 Height (Feet): 5 Height (Inches): 7.00 Weight (Pounds): 150 Respiratory/Chest: lungs clear Cardiovascular: normal rate, regular rhythm, no gallop/murmur Abdomen: soft, non tender, other - GT Extremities: no edema Microbiology Date/Time Source Procedure Growth Status 08/08/18 07:15 Blood Blood Culture - Preliminary NO GROWTH AFTER 24 HOURS Resulted 08/07/18 12:40 Blood Blood Culture - Preliminary NO GROWTH AFTER 48 HOURS Resulted 08/07/18 12:25 Blood Blood Culture - Preliminary NO GROWTH AFTER 48 HOURS Resulted 08/08/18 00:00 Sputum Gram Stain - Final Resulted 08/08/18 00:00 Sputum Culture - Preliminary Gram Negative Bacillus 1 Gram Negative Bacillus 2 Resulted 08/07/18 12:36 Nasal Nares MRSA Culture - Final Staphylococcus Aureus - Mrsa Complete 08/07/18 12:24 Nasal Nares Influenza Types A,B Antigen (HENNA) - Final Complete 08/07/18 13:30 Urine,Clean Catch Urine Culture - Final Akiko Albicans Complete 08/07/18 12:36 Rectum - Final NO CARBAPENEM-RESISTANT ENTEROBACTERI... Complete 08/07/18 12:36 Rectum VRE Culture - Final Enterococcus Faecalis - Vre Enterococcus Faecium - Vre Complete Laboratory Tests Test 08/10/18 08:30 White Blood Count 10.0 K/UL (4.8-10.8) Red Blood Count 2.95 M/UL (4.70-6.10) L Hemoglobin 9.3 G/DL (14.2-18.0) L Hematocrit 26.5 % (42.0-52.0) L Mean Corpuscular Volume 90 FL (80-99) Mean Corpuscular Hemoglobin 31.6 PG (27.0-31.0) H Mean Corpuscular Hemoglobin Concent 35.1 G/DL (32.0-36.0) Red Cell Distribution Width 14.7 % (11.6-14.8) Platelet Count 356 K/UL (150-450) Mean Platelet Volume 5.2 FL (6.5-10.1) L Neutrophils (%) (Auto) 73.4 % (45.0-75.0) Lymphocytes (%) (Auto) 11.7 % (20.0-45.0) L Monocytes (%) (Auto) 9.8 % (1.0-10.0) Eosinophils (%) (Auto) 2.5 % (0.0-3.0) Basophils (%) (Auto) 2.6 % (0.0-2.0) H Current Medications Medications (Trade) Dose Ordered Sig/Jarrod Route PRN Reason Start Time Stop Time Status Last Admin Dose Admin Fenofibrate (Tricor) 134 mg DAILY ORAL 08/09/18 09:00 09/08/18 08:59 08/10/18 08:56 Heparin Sodium (Porcine) (Heparin 5000 units/ml) 5,000 units EVERY 12 HOURS SUBQ 08/07/18 21:00 09/06/18 20:59 08/10/18 08:57 Pantoprazole (Protonix) 40 mg DAILY IVP 08/08/18 09:00 09/07/18 08:59 08/10/18 08:56 Piperacillin Sod/ Tazobactam Sod 3.375 gm/Dextrose 100 ml @ 25 mls/hr EVERY 8 HOURS IV 08/08/18 22:00 08/15/18 21:59 08/10/18 05:53 Sodium Chloride 1,000 ml @ 75 mls/hr [id number] IV 08/07/18 19:30 09/06/18 19:29 08/10/18 00:06 Len Sarkar MD Aug 10, 2018 10:45
[2018-08-10] MEDS ORDERED: Fluconazole 100mg tab ORAL SCH (11:00)
[2018-08-10 12:00] VITALS: BP 139/58
[2018-08-10 16:00] VITALS: BP 141/77
[2018-08-10] MEDS ORDERED: Nulytely 4L ORAL ONE (16:00)
[2018-08-10] MEDS ORDERED: 1/2 NS 1000ml IV ONE (17:37)
--- NOTE | 2018-08-10 19:40 | General Progress Note ---
Assessment/Plan Assessment/Plan GI bleed- s/p transfusion. For endoscopies? DW GI Volume depletion - IVF Sepsis - ID Subjective Allergies: Coded Allergies: No Known Allergies (Verified , 12/28/06) Subjective Alert but confused. Objective Last 24 Hour Vital Signs Date Time Temp Pulse Resp B/P (MAP) Pulse Ox O2 Delivery O2 Flow Rate FiO2 08/10/18 16:00 98.2 90 20 141/77 (98) 100 08/10/18 15:11 84 08/10/18 12:00 98.0 85 20 139/58 (85) 98 08/10/18 11:56 79 08/10/18 09:00 Room Air 08/10/18 08:05 87 08/10/18 07:56 98.2 84 20 133/61 (85) 99 08/10/18 04:00 97.0 81 20 140/65 (90) 100 08/10/18 04:00 77 08/10/18 00:00 97.0 84 20 139/80 (99) 96 08/10/18 00:00 83 08/09/18 21:00 Room Air 08/09/18 20:00 70 08/09/18 20:00 98.3 81 20 149/61 (90) 96 Intake and Output 08/09/18 08/10/18 19:00 07:00 Intake Total 1130 ml 1210 ml Output Total 600 ml Balance 1130 ml 610 ml Intake Free Water 50 ml IV Total 600 ml 550 ml Tube Feeding 480 ml 660 ml Output Urine Total 600 ml # Bowel Movements 2 1 Laboratory Tests 08/10/18 08:30: White Blood Count 10.0, Red Blood Count 2.95L, Hemoglobin 9.3L, Hematocrit 26.5L , Mean Corpuscular Volume 90, Mean Corpuscular Hemoglobin 31.6H, Mean Corpuscular Hemoglobin Concent 35.1, Red Cell Distribution Width 14.7, Platelet Count 356, Mean Platelet Volume 5.2L, Neutrophils (%) (Auto) 73.4, Lymphocytes ( %) (Auto) 11.7L, Monocytes (%) (Auto) 9.8, Eosinophils (%) (Auto) 2.5, Basophils (%) (Auto) 2.6H Height (Feet): 5 Height (Inches): 7.00 Weight (Pounds): 150 Objective CV RR Lungs CTA Abd SNT BS + E No CCE Ann López MD Aug 10, 2018 19:40
[2018-08-10 20:00] VITALS: BP 146/69
[2018-08-10] MEDS ORDERED: Fleet's Enema 133ml RECTAL SCH (23:00)
[2018-08-11] VITALS: BP 145/69
[2018-08-11 04:00] VITALS: BP 145/64
[2018-08-11 06:38] LABS: BASOPHILS % (AUTO) 2.4 % (0.0-2.0); EOSINOPHILS % (AUTO) 0.9 % (0.0-3.0); HEMATOCRIT 29.1 % (42.0-52.0); HEMOGLOBIN 9.5 G/DL (14.2-18.0); LYMPHOCYTES % (AUTO) 12.1 % (20.0-45.0); MEAN CORPUSCULAR VOLUME 90 FL (80-99); MONOCYTES % (AUTO) 8.2 % (1.0-10.0); NEUTROPHILS % (AUTO) 76.5 % (45.0-75.0); PLATELET COUNT 392 K/UL (150-450); RED BLOOD COUNT 3.22 M/UL (4.70-6.10); RED CELL DISTRIBUTION WIDTH 15.7 % (11.6-14.8)
[2018-08-11 07:15] LABS: ANION GAP 10 mmol/L (5-15); BLOOD UREA NITROGEN 24 mg/dL (7-18); CALCIUM 8.2 MG/DL (8.5-10.1); CARBON DIOXIDE 23 MMOL/L (21-32); CHLORIDE 98 MMOL/L (98-107); CREATININE 1.4 MG/DL (0.55-1.30); POTASSIUM 4.3 MMOL/L (3.5-5.1); SODIUM 131 MMOL/L (136-145)
[2018-08-11 08:00] VITALS: BP 138/65
[2018-08-11] MEDS: Fluconazole 100mg tab GT SCH ×2 (08:18→14:08)
[2018-08-11] MEDS: Pantoprazole Inj IVP SCH (09:01)
--- NOTE | 2018-08-11 10:45 | Infectious Diseases Prog Note ---
"Assessment/Plan Assessment/Plan antibiotics : zosyn 08.07.18 - fluconazole 08.10.18 - A 1. proteus | e.coli pneumonia 2. fungal UTI 3. diabetes mellitus 4. hypertension 5. 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 continue zosyn 2. continue fluconazole 5 more days 3. will follow up cultures Subjective ROS Limited/Unobtainable: Yes Allergies: Coded Allergies: No Known Allergies (Verified , 12/28/06) Objective Vital Signs Last 24 Hour Vital Signs Date Time Temp Pulse Resp B/P (MAP) Pulse Ox O2 Delivery O2 Flow Rate FiO2 08/11/18 09:00 Room Air 08/11/18 08:00 71 08/11/18 08:00 98.2 79 16 138/65 (89) 96 08/11/18 04:00 98.8 75 24 145/64 (91) 94 08/11/18 04:00 76 08/11/18 00:00 98.8 83 23 145/69 (94) 96 08/11/18 00:00 78 08/10/18 21:00 Room Air 08/10/18 20:00 97.8 82 23 146/69 (94) 97 08/10/18 20:00 80 08/10/18 16:00 98.2 90 20 141/77 (98) 100 08/10/18 15:11 84 08/10/18 12:00 98.0 85 20 139/58 (85) 98 08/10/18 11:56 79 Height (Feet): 5 Height (Inches): 7.00 Weight (Pounds): 150 Respiratory/Chest: lungs clear Cardiovascular: normal rate, regular rhythm, no gallop/murmur Abdomen: soft, non tender, other - GT Extremities: no edema Laboratory Tests Test 08/11/18 05:25 White Blood Count 10.0 K/UL (4.8-10.8) Red Blood Count 3.22 M/UL (4.70-6.10) L Hemoglobin 9.5 G/DL (14.2-18.0) L Hematocrit 29.1 % (42.0-52.0) L Mean Corpuscular Volume 90 FL (80-99) Mean Corpuscular Hemoglobin 29.6 PG (27.0-31.0) Mean Corpuscular Hemoglobin Concent 32.7 G/DL (32.0-36.0) Red Cell Distribution Width 15.7 % (11.6-14.8) H Platelet Count 392 K/UL (150-450) Mean Platelet Volume 5.5 FL (6.5-10.1) L Neutrophils (%) (Auto) 76.5 % (45.0-75.0) H Lymphocytes (%) (Auto) 12.1 % (20.0-45.0) L Monocytes (%) (Auto) 8.2 % (1.0-10.0) Eosinophils (%) (Auto) 0.9 % (0.0-3.0) Basophils (%) (Auto) 2.4 % (0.0-2.0) H Prothrombin Time 11.0 SEC (9.30-11.50) Prothromb Time International Ratio 1.0 (0.9-1.1) Activated Partial Thromboplast Time 29 SEC (23-33) Sodium Level 131 MMOL/L (136-145) L Potassium Level 4.3 MMOL/L (3.5-5.1) Chloride Level 98 MMOL/L (98-107) Carbon Dioxide Level 23 MMOL/L (21-32) Anion Gap 10 mmol/L (5-15) Blood Urea Nitrogen 24 mg/dL (7-18) H Creatinine 1.4 MG/DL (0.55-1.30) H Estimat Glomerular Filtration Rate mL/min (>60) Glucose Level 97 MG/DL (74-106) Calcium Level 8.2 MG/DL (8.5-10.1) L Current Medications Medications (Trade) Dose Ordered Sig/Jarrod Route PRN Reason Start Time Stop Time Status Last Admin Dose Admin Fenofibrate (Tricor) 134 mg DAILY ORAL 08/09/18 09:00 09/08/18 08:59 08/10/18 08:56 Fluconazole (Diflucan) 100 mg DAILY GT 08/11/18 09:00 08/18/18 08:59 Pantoprazole (Protonix) 40 mg DAILY IVP 08/08/18 09:00 09/07/18 08:59 08/11/18 09:01 Piperacillin Sod/ Tazobactam Sod 3.375 gm/Dextrose 100 ml @ 25 mls/hr EVERY 8 HOURS IV 08/08/18 22:00 08/15/18 21:59 08/11/18 06:15 Sodium Chloride 1,000 ml @ 75 mls/hr [id number] IV 08/07/18 19:30 09/06/18 19:29 08/11/18 08:55 Len Sarkar MD Aug 11, 2018 10:45"
[2018-08-11 12:00] VITALS: BP 148/66
--- NOTE | 2018-08-11 13:21 | GI Progress Note ---
Assessment/Plan Problems: (1) Occult blood in stools ICD Codes: R19.5 - Other fecal abnormalities SNOMED: 34007912, 426744682 (2) G tube feedings ICD Codes: Z93.1 - Gastrostomy status SNOMED: 545443860, 037577849 (3) Anemia ICD Codes: D64.9 - Anemia, unspecified SNOMED: 127155301 Status: unchanged Status Narrative Discussed with Dr. Brooks. Assessment/Plan s/p recent EGD OB stool positive on ppi s/p 2 units PRBC on GTF on tricor colonoscopy on hold pending decision from Bioethics, unable to consent. resume GTFs monitor H&H, prn transfusions ppi fu labs The patient was seen and examined at bedside and all new and available data was reviewed in the patients chart. I agree with the above findings, impression and plan. (Patient seen earlier today. Signature stamp does not reflect patient encounter time.). - Kentrell Brooks MD Subjective Subjective limited Objective Last 24 Hour Vital Signs Date Time Temp Pulse Resp B/P (MAP) Pulse Ox O2 Delivery O2 Flow Rate FiO2 08/11/18 12:00 75 08/11/18 12:00 97.5 75 16 148/66 (93) 100 08/11/18 09:00 Room Air 08/11/18 08:00 71 08/11/18 08:00 98.2 79 16 138/65 (89) 96 08/11/18 04:00 98.8 75 24 145/64 (91) 94 08/11/18 04:00 76 08/11/18 00:00 98.8 83 23 145/69 (94) 96 08/11/18 00:00 78 08/10/18 21:00 Room Air 08/10/18 20:00 97.8 82 23 146/69 (94) 97 08/10/18 20:00 80 08/10/18 16:00 98.2 90 20 141/77 (98) 100 08/10/18 15:11 84 Intake and Output 08/10/18 08/11/18 18:59 06:59 Intake Total 590 ml Output Total 900 ml Balance -310 ml Intake Free Water 50 ml Tube Feeding 540 ml Output Urine Total 900 ml # Bowel Movements 2 1 Laboratory Tests Test 11/13/18 05:25 White Blood Count 10.0 K/UL (4.8-10.8) Red Blood Count 3.22 M/UL (4.70-6.10) L Hemoglobin 9.5 G/DL (14.2-18.0) L Hematocrit 29.1 % (42.0-52.0) L Mean Corpuscular Volume 90 FL (80-99) Mean Corpuscular Hemoglobin 29.6 PG (27.0-31.0) Mean Corpuscular Hemoglobin Concent 32.7 G/DL (32.0-36.0) Red Cell Distribution Width 15.7 % (11.6-14.8) H Platelet Count 392 K/UL (150-450) Mean Platelet Volume 5.5 FL (6.5-10.1) L Neutrophils (%) (Auto) 76.5 % (45.0-75.0) H Lymphocytes (%) (Auto) 12.1 % (20.0-45.0) L Monocytes (%) (Auto) 8.2 % (1.0-10.0) Eosinophils (%) (Auto) 0.9 % (0.0-3.0) Basophils (%) (Auto) 2.4 % (0.0-2.0) H Prothrombin Time 11.0 SEC (9.30-11.50) Prothromb Time International Ratio 1.0 (0.9-1.1) Activated Partial Thromboplast Time 29 SEC (23-33) Sodium Level 131 MMOL/L (136-145) L Potassium Level 4.3 MMOL/L (3.5-5.1) Chloride Level 98 MMOL/L (98-107) Carbon Dioxide Level 23 MMOL/L (21-32) Anion Gap 10 mmol/L (5-15) Blood Urea Nitrogen 24 mg/dL (7-18) H Creatinine 1.4 MG/DL (0.55-1.30) H Estimat Glomerular Filtration Rate mL/min (>60) Glucose Level 97 MG/DL (74-106) Calcium Level 8.2 MG/DL (8.5-10.1) L Height (Feet): 5 Height (Inches): 7.00 Weight (Pounds): 150 General Appearance: WD/WN, no apparent distress, alert Cardiovascular: normal rate Respiratory/Chest: normal breath sounds, no respiratory distress Abdominal Exam: normal bowel sounds, non tender, soft Extremities: non-tender Supa Owens NP Aug 11, 2018 13:21
--- NOTE | 2018-08-11 15:57 | General Progress Note ---
Assessment/Plan Assessment/Plan GI bleed- s/p transfusion. For endoscopies? [facility] GI. Cannot get a consent. DC to SNF. Defer Endoscopies. Volume depletion - IVF Sepsis - ID Subjective Allergies: Coded Allergies: No Known Allergies (Verified , 12/28/06) Subjective Alert but confused. Objective Last 24 Hour Vital Signs Date Time Temp Pulse Resp B/P (MAP) Pulse Ox O2 Delivery O2 Flow Rate FiO2 08/11/18 12:00 75 08/11/18 12:00 97.5 75 16 148/66 (93) 100 08/11/18 09:00 Room Air 08/11/18 08:00 71 08/11/18 08:00 98.2 79 16 138/65 (89) 96 08/11/18 04:00 98.8 75 24 145/64 (91) 94 08/11/18 04:00 76 08/11/18 00:00 98.8 83 23 145/69 (94) 96 08/11/18 00:00 78 08/10/18 21:00 Room Air 08/10/18 20:00 97.8 82 23 146/69 (94) 97 08/10/18 20:00 80 08/10/18 16:00 98.2 90 20 141/77 (98) 100 Intake and Output 08/10/18 08/11/18 18:59 06:59 Intake Total 590 ml Output Total 900 ml Balance -310 ml Intake Free Water 50 ml Tube Feeding 540 ml Output Urine Total 900 ml # Bowel Movements 2 1 Laboratory Tests 08/11/18 05:25: White Blood Count 10.0, Red Blood Count 3.22L, Hemoglobin 9.5L, Hematocrit 29.1L , Mean Corpuscular Volume 90, Mean Corpuscular Hemoglobin 29.6, Mean Corpuscular Hemoglobin Concent 32.7, Red Cell Distribution Width 15.7H, Platelet Count 392, Mean Platelet Volume 5.5L, Neutrophils (%) (Auto) 76.5H, Lymphocytes (%) (Auto) 12.1L, Monocytes (%) (Auto) 8.2, Eosinophils (%) (Auto) 0.9, Basophils (%) (Auto) 2.4H, Prothrombin Time 11.0, Prothromb Time International Ratio 1.0, Activated Partial Thromboplast Time 29, Sodium Level 131L, Potassium Level 4.3, Chloride Level 98, Carbon Dioxide Level 23, Anion Gap 10, Blood Urea Nitrogen 24H, Creatinine 1.4H, Estimat Glomerular Filtration Rate , Glucose Level 97, Calcium Level 8.2L Height (Feet): 5 Height (Inches): 7.00 Weight (Pounds): 150 Objective CV RR Lungs CTA Abd SNT BS + E No CCE Ann López MD Aug 11, 2018 15:57
[2018-08-11] MEDS ORDERED: PROTONIX40 M1 IVP (15:59)
[2018-08-11] MEDS ORDERED: FENOFIBRATE 13134 MG ORAL (15:59)
[2018-08-11] MEDS ORDERED: DIFLUCAN100 MG GT (15:59)
[2018-08-11 16:00] VITALS: BP 134/55
[2018-08-11 20:00] VITALS: BP 138/60
--- NOTE | 2018-08-12 14:13 | Discharge Summary ---
Discharge Summary Discharge Summary _ DATE OF ADMISSION: 08/07/2018 DATE OF DISCHARGE: 08/11/2018 REASON FOR ADMISSION: 82 years old male with past medical history of dysphagia, jejunostomy tube , chronic kidney disease stage III ,anemia of chronic kidney disease ,severe esophagitis secondary to reflux ,type 2 diabetes mellitus , recurrent upper GI bleeding due to gastritis ,history of small bowel obstruction, history of common bile duct dilatation and cholecystectomy, was [facility] from the [facility] for abnormal labs and anemia for evaluation . During the stay in emergency room patient had coffee-ground emesis. Upon evaluation vital signs were stable. BUN 73 creatinine 2.2 ,consistent with known history of chronic kidney disease. Potassium 5.4, sodium 135. WBC 10.3 , hemoglobin 8.1 hematocrit 22.6. Urinalysis with pyuria and hematuria, and occasional bacteria Troponin negative. EKG revealed normal sinus rhythm, no acute ischemic changes . Chest x-ray revealed no acute cardiopulmonary pathology. Patient admitted with diagnoses of recurrent upper GI bleeding ,volume depletion , recurrent septicemia , dysphagia, jejunostomy tube ,chronic kidney disease stage III ,anemia of chronic kidney disease, severe esophagitis due to reflux type 2, diabetes mellitus, history of common bile duct dilatation and cholecystectomy ,history of small bowel obstruction , CONSULTANTS: ID specialist Dr. Sarkar GI specialist Dr. Brooks [facility] COURSE: Patient admitted to telemetry floor and started on IV rehydration. Renal parameters and electrolytes were closely monitored. Nephrotoxic for avoided . Electrolytes corrected as needed . Prior to discharge creatinine from 2.2 down to 1.4. Potassium from 5.4 down to 4.3. Patient started on empiric antibiotic. ID specialist followed. Urine culture revealed Akiko. Sputum culture revealed Proteus and Escherichia coli . Blood culture were negative. Antibiotic regimen optimized as per infectious disease specialist recommendations and to be continued at the [facility] to complete the course. Leukocytosis resolved, patient afebrile. Supplemental oxygen provided as needed to keep pulse oximetry above 92%. Pulmonary toilet provided as needed. Patient noted to be anemic. Patient undergone transfusion of 2 units of packed red blood cells. Stool for occult blood was positive. Patient unable to provide consent for colonoscopy. GI specialist closely followed. Per GI specialist hold colonoscopy, given no active bleeding at this time and lack of consent. Patient status post recent EGD . Continue PPI. Patient was able to tolerate tube feeding. Strict aspiration /reflux precautions maintained. GI specialist recommended obtain consent for colonoscopy via bioethics decision. Hemoglobin and hematocrit remained stable after transfusion, Prior to discharge hemoglobin 9.5 hematocrit 29.1. Supportive care provided. Bowel regimen instituted. Pain management addressed as needed. Patient stabilized and was ready for discharge back to [facility] for continuation of care. FINAL DIAGNOSES: Sepsis Proteus and Escherichia coli pneumonia Fungal UTI Recurrent GI bleeding Dysphagia , jejunostomy tube feeding Chronic kidney disease st 3 Anemia of chronic kidney disease Hypovolemia secondary to dehydration Diabetes mellitus HTN DISCHARGE MEDICATIONS: See Medication Reconciliation list. DISCHARGE INSTRUCTIONS: Patient was discharged to the [facility] facility. Follow up with medical doctor at the facility. I have been assigned to dictate discharge summary for this account. I was not involved in the patient's management. Mari Edmond NP Aug 12, 2018 14:13
== END 2018-08-11 22:23 | DRG 871 ==
LOC: EDBD 11:53 → EMR 12:50 → 2E 13:00 → EDBEDREQ 14:55
PROC: 30233N1 Transfusion of Nonautologous Red Blood Cells into Peripheral Vein, Percutaneous Approach (ICD-10-PCS; principal; 2018-08-08)
DX: A41.9 Sepsis, unspecified organism (principal); J15.6 Pneumonia due to other Gram-negative bacteria; J15.5 Pneumonia due to Escherichia coli; N17.9 Acute kidney failure, unspecified; B37.49 Other urogenital candidiasis; K92.2 Gastrointestinal hemorrhage, unspecified; R13.10 Dysphagia, unspecified; Z43.4 Encounter for attention to other artificial openings of digestive tract; I12.9 Hypertensive chronic kidney disease with stage 1 through stage 4 chronic kidney disease, or unspecified chronic kidney disease; E11.22 Type 2 diabetes mellitus with diabetic chronic kidney disease; N18.3 Chronic kidney disease, stage 3 (moderate); D63.1 Anemia in chronic kidney disease; E86.0 Dehydration; E86.1 Hypovolemia; F09 Unspecified mental disorder due to known physiological condition; Z79.4 Long term (current) use of insulin; E78.5 Hyperlipidemia, unspecified; Z22.322 Carrier or suspected carrier of Methicillin resistant Staphylococcus aureus; F03.90 Unspecified dementia, unspecified severity, without behavioral disturbance, psychotic disturbance, mood disturbance, and anxiety; K21.0 Gastro-esophageal reflux disease with esophagitis
CPT/HCPCS: 36415; 71045; 80048; 80053; 80061; 81003; 82150; 82270; 82550; 82553; 82962; 83605; 83690; 83735; 84484; 85007; 85025; 85610; 85730; 86710; 86850; 86900; 86901; 86920; 87040; 87070; 87081; 87086; 87181; 87205; 93005; 96361; 96365; 96366; 99285

== ENCOUNTER 2018-09-05 11:01 | Inpatient (IN) | payer MEDICARE, OTHER ==
[~2018-09-05] VITALS: Ht 177.8 cm; Wt 60.3 kg
[~2018-09-05 11:01] MED LIST changes: +ACETAMINOPHEN325 M1 GT; +DIFLUCAN100 MG GT; +FENOFIBRATE 13134 MG ORAL; +LACTULOSE10 GM/154 PO; +PROTONIX40 M1 IVP
--- NOTE | 2018-09-05 11:17 | Emergency Room Report ---
History of Present Illness General Chief Complaint: Altered Level of Consciousness Source: EMS Present Illness HPI Patient is an 82-year-old male brought in by EMS from nursing facility after increased temperature. Patient was noted to have fever up to 101. The patient had not been noted to have fever prior. Patient is normally has altered mental status. The patient was noted to have increased generalized weakness.Patient not been vomiting.The patient was noted to be increased generalized weakness. The patient does not undergo dialysis. Allergies: Coded Allergies: No Known Allergies (Verified , 12/28/06) Patient History Past Medical History: see triage record Reviewed Nursing Documentation: PMH: Agreed; PSxH: Agreed Nursing Documentation-PMH Past Medical History: No History, Except For Hx Cardiac Problems: No Hx Hypertension: Yes Hx Diabetes: Yes Hx Cancer: No Hx Dialysis: No - CKD Hx Neurological Problems: Yes - ALOC Review of Systems All Other Systems: limited - by mental status Physical Exam Vital Signs Date Time Temp Pulse Resp B/P (MAP) Pulse Ox O2 Delivery O2 Flow Rate FiO2 09/05/18 10:51 98.4 111 24 128/70 General Appearance: moderate distress, thin, Chronically Ill ENT: dry mucus membranes Neck: limited range of motion Respiratory: no respiratory distress, rhonchi Cardiovascular #1: tachycardia Gastrointestinal: soft, other - gtube present Neurologic: alert, responsive, motor weakness - general Psychiatric: depressed affect Skin: normal inspection Medical Decision Making Diagnostic Impression: Primary Impression: Altered level of consciousness Additional Impression: Sepsis ER Course The patient presented for altered mental status and generalized weakness. Differential diagnosis included was not limited to pneumonia, sepsis, dehydration, among others.Because of complexity of patient's case laboratory testing and imaging studies were ordered. The laboratory testing was notable for markedly elevated sodium as well as elevated potassium. I EKG interpreted by me showed sinus tachycardia with incomplete right bundle-branch block with a rate of 111. The patient was started on IV fluids. The patient was started on IV antibiotics. Dr. Foster was contacted for inpatient management due to primary care physician Labs Test 09/05/18 11:25 09/05/18 11:45 Arterial Blood pH 7.423 (7.350-7.450) Arterial Blood Partial Pressure CO2 50.3 mmHg (35.0-45.0) Arterial Blood Partial Pressure O2 89.4 mmHg (75.0-100.0) Arterial Blood HCO3 32.1 mmol/L (22.0-26.0) Arterial Blood Oxygen Saturation 97.0 % (95-100) Arterial Blood Base Excess 6.3 (-2-2) Lazaro Test Positive White Blood Count 14.3 K/UL (4.8-10.8) Red Blood Count 5.97 M/UL (4.70-6.10) Hemoglobin 17.3 G/DL (14.2-18.0) Hematocrit 58.9 % (42.0-52.0) Mean Corpuscular Volume 99 FL (80-99) Mean Corpuscular Hemoglobin 29.0 PG (27.0-31.0) Mean Corpuscular Hemoglobin Concent 29.3 G/DL (32.0-36.0) Red Cell Distribution Width 16.7 % (11.6-14.8) Platelet Count 248 K/UL (150-450) Mean Platelet Volume 7.1 FL (6.5-10.1) Neutrophils (%) (Auto) 80.3 % (45.0-75.0) Lymphocytes (%) (Auto) 10.4 % (20.0-45.0) Monocytes (%) (Auto) 6.5 % (1.0-10.0) Eosinophils (%) (Auto) 1.7 % (0.0-3.0) Basophils (%) (Auto) 1.2 % (0.0-2.0) EKG Diagnostic Results Rate: tachycardiac Rhythm: NSR ST Segments: no acute changes Last Vital Signs Date Time Temp Pulse Resp B/P (MAP) Pulse Ox O2 Delivery O2 Flow Rate FiO2 09/05/18 10:51 98.4 111 24 128/70 Status: unchanged Disposition: ADMITTED INPATIENT Condition: Stable Dl Kirk MD Sep 05, 2018 11:17
[2018-09-05 11:18] VITALS: BP 130/67
[2018-09-05 11:54] LABS: BASOPHILS % (AUTO) 1.2 % (0.0-2.0); EOSINOPHILS % (AUTO) 1.7 % (0.0-3.0); HEMATOCRIT 58.9 % (42.0-52.0); HEMOGLOBIN 17.3 G/DL (14.2-18.0); LYMPHOCYTES % (AUTO) 10.4 % (20.0-45.0); MEAN CORPUSCULAR VOLUME 99 FL (80-99); MONOCYTES % (AUTO) 6.5 % (1.0-10.0); NEUTROPHILS % (AUTO) 80.3 % (45.0-75.0); PLATELET COUNT 248 K/UL (150-450); RED BLOOD COUNT 5.97 M/UL (4.70-6.10); RED CELL DISTRIBUTION WIDTH 16.7 % (11.6-14.8); WHITE BLOOD COUNT 14.3 K/UL (4.8-10.8)
--- NOTE | 2018-09-05 12:26 | Diagnostic Imaging Report ---
EXAM: XR Chest, 1 View CLINICAL HISTORY: SOB TECHNIQUE: Frontal view of the chest. COMPARISON: No relevant prior studies available. FINDINGS: Lungs: Patchy infiltrate in the left lung base. Pleural space: Unremarkable. No pneumothorax. Heart: Unremarkable. No cardiomegaly. Mediastinum: Unremarkable. Bones/joints: No acute fracture. Vasculature: Prominent aortic knob. Calcifications in aorta. Lymph nodes: Thickening of the para tracheal stripe, underlying adenopathy or lesion not excluded. IMPRESSION: 1. Patchy infiltrate in the left lung base. 2. Thickening of the paratracheal stripe, underlying adenopathy or lesion not excluded.
[2018-09-05 12:30] VITALS: BP 133/65
[2018-09-05 12:32] LABS: ALANINE AMINOTRANSFERASE 18 U/L (12-78); ALBUMIN 2.8 G/DL (3.4-5.0); ALBUMIN/GLOBULIN RATIO 0.3 (1.0-2.7); ALKALINE PHOSPHATASE 66 U/L (46-116); ANION GAP 8 mmol/L (5-15); ASPARTATE AMINO TRANSFERASE 24 U/L (15-37); BILIRUBIN,TOTAL 0.5 MG/DL (0.2-1.0); BLOOD UREA NITROGEN 1 mg/dL (7-18); CALCIUM 9.6 MG/DL (8.5-10.1); CARBON DIOXIDE 31 MMOL/L (21-32); CHLORIDE 123 MMOL/L (98-107); CKMB 0.8 NG/ML (0.0-3.6); CREATINE KINASE 47 U/L (26-308); CREATININE 3.2 MG/DL (0.55-1.30)
[2018-09-05 12:38] LABS: POTASSIUM 6.1 MMOL/L (3.5-5.1); SODIUM 163 MMOL/L (136-145)
[2018-09-05] MEDS ORDERED: Insulin Human Regular 100units/ml 3ml IV ONE (12:45)
[2018-09-05 13:30] VITALS: BP 129/61
[2018-09-05] MEDS ORDERED: Sodium Chloride 500ML 500 ML IV ONE (13:45)
[2018-09-05] MEDS ORDERED: cefTRIAXone 1 GM in NS 55 ML IVPB ONE (13:45)
[2018-09-05 14:30] VITALS: BP 120/61
[2018-09-05 20:00] VITALS: BP 129/57
[2018-09-05] MEDS: Piperacillin/Tazobactam 2.25 GM in D5W 55 ML IVPB SCH (20:42)
[2018-09-05] MEDS: Heparin 5000 units/ml inj SUBQ SCH (20:43)
[2018-09-06] VITALS (7 sets, daily range): BP systolic 120–133; BP diastolic 54–59
[2018-09-06 00:54] LABS: ALANINE AMINOTRANSFERASE 17 U/L (12-78); ALBUMIN 2.5 G/DL (3.4-5.0); ALBUMIN/GLOBULIN RATIO 0.4 (1.0-2.7); ALKALINE PHOSPHATASE 53 U/L (46-116); ANION GAP 14 mmol/L (5-15); ASPARTATE AMINO TRANSFERASE 25 U/L (15-37); BILIRUBIN,TOTAL 0.2 MG/DL (0.2-1.0); CALCIUM 8.3 MG/DL (8.5-10.1); CARBON DIOXIDE 26 MMOL/L (21-32); CHLORIDE 125 MMOL/L (98-107); CREATININE 3.1 MG/DL (0.55-1.30); POTASSIUM 4.3 MMOL/L (3.5-5.1)
[2018-09-06 00:57] LABS: SODIUM 165 MMOL/L (136-145)
[2018-09-06 01:06] LABS: BLOOD UREA NITROGEN 132 mg/dL (7-18)
[2018-09-06] MEDS: Piperacillin/Tazobactam 2.25 GM in D5W 55 ML IVPB SCH (06:17)
[2018-09-06 07:40] LABS: BASOPHILS % (AUTO) 0.8 % (0.0-2.0); EOSINOPHILS % (AUTO) 1.3 % (0.0-3.0); HEMATOCRIT 45.7 % (42.0-52.0); HEMOGLOBIN 13.8 G/DL (14.2-18.0); LYMPHOCYTES % (AUTO) 8.5 % (20.0-45.0); MEAN CORPUSCULAR VOLUME 98 FL (80-99); MONOCYTES % (AUTO) 6.1 % (1.0-10.0); NEUTROPHILS % (AUTO) 83.3 % (45.0-75.0); PLATELET COUNT 218 K/UL (150-450); RED BLOOD COUNT 4.64 M/UL (4.70-6.10); RED CELL DISTRIBUTION WIDTH 16.5 % (11.6-14.8); WHITE BLOOD COUNT 16.4 K/UL (4.8-10.8)
[2018-09-06 07:55] LABS: ANION GAP 7 mmol/L (5-15); BLOOD UREA NITROGEN 122 mg/dL (7-18); CALCIUM 8.7 MG/DL (8.5-10.1); CARBON DIOXIDE 32 MMOL/L (21-32); CHLORIDE 120 MMOL/L (98-107); CREATININE 3.2 MG/DL (0.55-1.30); POTASSIUM 4.3 MMOL/L (3.5-5.1); SODIUM 160 MMOL/L (136-145)
[2018-09-06] MEDS: Heparin 5000 units/ml inj SUBQ SCH ×2 (08:10→21:19)
[2018-09-06] MEDS: Levemir Flexpen SUBQ SCH (12:06)
[2018-09-06] MEDS: Albuterol/Ipratropium 3ml neb HHN SCH ×2 (12:43→19:24)
[2018-09-06] MEDS ORDERED: cefTRIAXone 1 GM in D5W 55 ML IVPB SCH (14:00)
--- NOTE | 2018-09-06 19:00 | History and Physical Report ---
DATE OF ADMISSION: 09/05/2018 CHIEF COMPLAINT: Dyspnea and altered level of consciousness. HISTORY OF PRESENT ILLNESS: This is an 82-year-old [place] male who is a resident of senior care. I was called yesterday by the senior care staff about the patient having shortness of breath and also altered level of consciousness. The patient was transferred to this hospital's emergency department. PAST MEDICAL HISTORY: 1. Organic brain syndrome. 2. Recurrent multiple admissions for volume depletion, acute renal failure, and upper gastrointestinal bleeding. 3. Status post jejunostomy. 4. Chronic kidney disease, stage 3. 5. Recurrent pancreatitis. 6. Anemia of chronic kidney disease. 7. Severe reflux esophagitis. 8. Type 2 diabetes mellitus. 9. History of common bile duct dilatation. 10. Status post cholecystectomy. MEDICATIONS: Vitamin C, zinc sulfate, milk of magnesia, tube feeding, Glucerna, Tylenol p.r.n., Epogen subcutaneously, multivitamins, omeprazole. ALLERGIES: No known drug allergies. FAMILY HISTORY: Unable to obtain due to mental status. SOCIAL HISTORY: Unable to obtain due to mental status. REVIEW OF SYSTEMS: Unable to obtain due to mental status. PHYSICAL EXAMINATION: GENERAL: This is an elderly, cachectic, [place] male who is in no acute distress. VITAL SIGNS: Blood pressure 128/58, pulse 91, respirations 20, and temperature 98.4. HEENT: The head is normocephalic and atraumatic. Pupils are equal, round, and reactive to light and accommodation consensually. NECK: Supple. Trachea midline. There was no lymphadenopathy or thyromegaly. LUNGS: Clear to auscultation and percussion. HEART: Regular rate and rhythm without rubs, murmurs, or gallops. ABDOMEN: Soft and nontender. Bowel sounds were active. He has a J-tube. EXTREMITIES: No clubbing, cyanosis, or edema. NEUROLOGICAL: He is obtunded. There were no gross focal findings. LABORATORY AND ANCILLARY DATA: CBC on admission, yesterday white count 14,300 and today 16,400. Hemoglobin yesterday was 17.3 and today 13.8. Chemistry, yesterday sodium 165 and today 160 on D5W. BUN yesterday 132 and today 122. Creatinine yesterday 3.1 and today 3.2. Glucose 401 yesterday and today is 483. Magnesium today 2.6. ASSESSMENT: 1. Acute renal failure. 2. Extreme volume depletion. 3. Hypernatremia. PLAN: 1. Hypotonic IV fluid rehydration. 2. Insulin therapy. Ann López M.D. DR: Elkin JOB#: [id number] CC:
[2018-09-06] MEDS: Zosyn 3.375gm q12h **Extended infusion IVPB SCH ×2 (21:17)
[2018-09-07] VITALS (7 sets, daily range): BP systolic 116–137; BP diastolic 53–75
[2018-09-07] MEDS: Albuterol/Ipratropium 3ml neb HHN SCH ×4 (00:34→20:26)
[2018-09-07 07:28] LABS: BASOPHILS % (AUTO) 0.7 % (0.0-2.0); EOSINOPHILS % (AUTO) 5.8 % (0.0-3.0); HEMATOCRIT 41.6 % (42.0-52.0); HEMOGLOBIN 12.6 G/DL (14.2-18.0); LYMPHOCYTES % (AUTO) 12.6 % (20.0-45.0); MEAN CORPUSCULAR VOLUME 96 FL (80-99); MONOCYTES % (AUTO) 5.3 % (1.0-10.0); NEUTROPHILS % (AUTO) 75.6 % (45.0-75.0); PLATELET COUNT 164 K/UL (150-450); RED BLOOD COUNT 4.32 M/UL (4.70-6.10); RED CELL DISTRIBUTION WIDTH 15.8 % (11.6-14.8); WHITE BLOOD COUNT 11.3 K/UL (4.8-10.8)
--- NOTE | 2018-09-07 07:56 | Nephrology Progress Note ---
Assessment/Plan Plan ARF improving with D5W. Monitor Labs. Monitor BG. Using highr insulins. Subjective Subjective Confused Objective Objective Last 24 Hour Vital Signs Date Time Temp Pulse Resp B/P (MAP) Pulse Ox O2 Delivery O2 Flow Rate FiO2 09/07/18 07:45 80 18 99 Nasal Cannula 2.0 28 09/07/18 07:40 99 Room Air 21 09/07/18 07:40 80 18 99 Room Air 21 09/07/18 07:40 Room Air 21 09/07/18 07:40 21 09/07/18 04:00 97.7 86 20 127/60 (82) 98 09/07/18 04:00 82 09/07/18 00:45 84 18 99 Nasal Cannula 2.0 28 09/07/18 00:44 28 09/07/18 00:34 83 20 97 Nasal Cannula 2.0 28 09/07/18 00:00 83 09/07/18 00:00 97.2 86 20 124/64 (84) 100 09/06/18 21:00 Nasal Cannula 2.0 09/06/18 20:00 81 09/06/18 20:00 98.7 86 20 126/55 (78) 98 09/06/18 19:36 28 09/06/18 19:36 86 18 99 Nasal Cannula 2.0 28 09/06/18 19:27 Nasal Cannula 2.0 28 09/06/18 19:26 93 Room Air 21 09/06/18 19:24 85 20 93 Room Air 21 09/06/18 16:00 98.3 89 20 130/55 (80) 96 09/06/18 15:48 85 09/06/18 13:18 98.4 81 20 120/58 (78) 96 09/06/18 12:49 78 18 99 Room Air 21 09/06/18 12:43 76 18 99 Room Air 21 09/06/18 12:43 21 09/06/18 12:00 98.8 81 20 120/58 (78) 98 09/06/18 11:52 83 Intake and Output 09/06/18 09/07/18 19:00 07:00 Intake Total 150 ml Output Total 500 ml 400 ml Balance -350 ml -400 ml Intake IV Total 150 ml Output Urine Total 500 ml 400 ml # Bowel Movements 1 1 Laboratory Tests 09/07/18 06:27: White Blood Count 11.3H, Red Blood Count 4.32L, Hemoglobin 12.6L, Hematocrit 41.6L, Mean Corpuscular Volume 96, Mean Corpuscular Hemoglobin 29.3, Mean Corpuscular Hemoglobin Concent 30.4L, Red Cell Distribution Width 15.8H, Platelet Count 164, Mean Platelet Volume 7.5, Neutrophils (%) (Auto) 75.6H, Lymphocytes (%) (Auto) 12.6L, Monocytes (%) (Auto) 5.3, Eosinophils (%) (Auto) 5.8H, Basophils (%) (Auto) 0.7, Sodium Level [Pending], Potassium Level [Pending ], Chloride Level [Pending], Carbon Dioxide Level [Pending], Blood Urea Nitrogen [Pending], Creatinine [Pending], Estimat Glomerular Filtration Rate [ Pending], Glucose Level [Pending], Calcium Level [Pending] Height (Feet): 5 Height (Inches): 10.00 Weight (Pounds): 110 Objective Cv RR Lungs CTA Abd SNT. BS +. PEJ OK E No CCE Ann López MD Sep 07, 2018 07:56
[2018-09-07 07:58] LABS: ANION GAP 8 mmol/L (5-15); BLOOD UREA NITROGEN 94 mg/dL (7-18); CALCIUM 8.7 MG/DL (8.5-10.1); CARBON DIOXIDE 31 MMOL/L (21-32); CHLORIDE 118 MMOL/L (98-107); CREATININE 2.8 MG/DL (0.55-1.30); POTASSIUM 3.4 MMOL/L (3.5-5.1); SODIUM 157 MMOL/L (136-145)
[2018-09-07] MEDS: Zosyn 3.375gm q12h **Extended infusion IVPB SCH ×4 (08:40→20:54)
[2018-09-07] MEDS: Heparin 5000 units/ml inj SUBQ SCH ×2 (08:46→20:59)
[2018-09-07] MEDS: Levemir Flexpen SUBQ SCH (20:58)
[2018-09-08] VITALS: BP 123/54
[2018-09-08] MEDS: Albuterol/Ipratropium 3ml neb HHN SCH ×4 (00:57→20:36)
[2018-09-08 04:00] VITALS: BP 135/63
[2018-09-08 06:12] LABS: BASOPHILS % (AUTO) 0.6 % (0.0-2.0); EOSINOPHILS % (AUTO) 5.4 % (0.0-3.0); HEMATOCRIT 43.6 % (42.0-52.0); HEMOGLOBIN 13.4 G/DL (14.2-18.0); MEAN CORPUSCULAR VOLUME 93 FL (80-99); MONOCYTES % (AUTO) 6.8 % (1.0-10.0); NEUTROPHILS % (AUTO) 77.1 % (45.0-75.0); PLATELET COUNT 193 K/UL (150-450); RED BLOOD COUNT 4.66 M/UL (4.70-6.10); RED CELL DISTRIBUTION WIDTH 15.2 % (11.6-14.8); WHITE BLOOD COUNT 8.3 K/UL (4.8-10.8)
[2018-09-08 06:28] LABS: ANION GAP 11 mmol/L (5-15); BLOOD UREA NITROGEN 69 mg/dL (7-18); CALCIUM 8.8 MG/DL (8.5-10.1); CARBON DIOXIDE 28 MMOL/L (21-32); CHLORIDE 113 MMOL/L (98-107); CREATININE 2.4 MG/DL (0.55-1.30); POTASSIUM 3.6 MMOL/L (3.5-5.1); SODIUM 152 MMOL/L (136-145)
--- NOTE | 2018-09-08 07:57 | Nephrology Progress Note ---
Assessment/Plan Plan ARF improving with D5W. Monitor Labs. Monitor BG. Using higher insulins. Subjective Subjective Confused Objective Objective Last 24 Hour Vital Signs Date Time Temp Pulse Resp B/P (MAP) Pulse Ox O2 Delivery O2 Flow Rate FiO2 09/08/18 07:25 75 20 100 Nasal Cannula 2.0 28 09/08/18 07:13 Nasal Cannula 2.0 28 09/08/18 07:13 72 18 100 Nasal Cannula 2.0 28 09/08/18 07:13 100 Nasal Cannula 2.0 28 09/08/18 04:00 81 09/08/18 04:00 97.0 83 22 135/63 (87) 99 09/08/18 01:02 83 20 99 Room Air 21 09/08/18 00:54 82 20 99 Room Air 2.0 28 09/08/18 00:00 87 09/08/18 00:00 98.7 86 24 123/54 (77) 99 09/07/18 21:00 Nasal Cannula 2.0 09/07/18 20:32 78 20 99 Room Air 21 09/07/18 20:24 75 20 97 Room Air 21 09/07/18 20:24 Room Air 21 09/07/18 20:23 97 Room Air 21 09/07/18 20:00 98.0 78 20 137/75 (95) 96 09/07/18 20:00 75 09/07/18 16:00 76 09/07/18 16:00 97.3 75 20 116/64 (81) 99 09/07/18 13:40 Nasal Cannula 2.0 28 09/07/18 13:40 Nasal Cannula 2.0 28 09/07/18 12:00 97.5 84 20 116/53 (74) 97 09/07/18 12:00 78 09/07/18 09:00 Nasal Cannula 2.0 09/07/18 09:00 97.7 86 18 127/60 (82) 99 09/07/18 08:00 76 09/07/18 08:00 97.5 81 22 121/57 (78) 100 Intake and Output 09/07/18 09/08/18 19:00 07:00 Output Total 650 ml Balance -650 ml Output Urine Total 650 ml Laboratory Tests 09/08/18 05:46: White Blood Count 8.3, Red Blood Count 4.66L, Hemoglobin 13.4L, Hematocrit 43.6 , Mean Corpuscular Volume 93, Mean Corpuscular Hemoglobin 28.7, Mean Corpuscular Hemoglobin Concent 30.8L, Red Cell Distribution Width 15.2H, Platelet Count 193, Mean Platelet Volume 7.4, Neutrophils (%) (Auto) 77.1H, Lymphocytes (%) (Auto) 10.0L, Monocytes (%) (Auto) 6.8, Eosinophils (%) (Auto) 5.4H, Basophils (%) (Auto) 0.6, Sodium Level 152H, Potassium Level 3.6, Chloride Level 113H, Carbon Dioxide Level 28, Anion Gap 11, Blood Urea Nitrogen 69H, Creatinine 2.4H, Estimat Glomerular Filtration Rate , Glucose Level 61L, Calcium Level 8.8 Height (Feet): 5 Height (Inches): 10.00 Weight (Pounds): 4 Objective Cv RR Lungs CTA Abd SNT. BS +. PEJ OK E No CCE Ann López MD Sep 08, 2018 07:57
[2018-09-08 08:00] VITALS: BP 128/52
[2018-09-08] MEDS: Zosyn 3.375gm q12h **Extended infusion IVPB SCH ×4 (09:05→20:57)
[2018-09-08] MEDS: Heparin 5000 units/ml inj SUBQ SCH ×2 (09:17→21:39)
--- NOTE | 2018-09-08 10:24 | Physician Query ---
--------- THIS DOCUMENT IS A PERMANENT PART OF THE MEDICAL RECORD --------- PLEASE COMPLETE DOCUMENT BEFORE SIGNING Dear Dr. López Date: 09/08/2018 Performance Engineer/CDS Name: Muriel Barrera Performance Engineer/CDS Phone No.: [phone] Exercise your independent professional judgment when responding to the query. Questions asked do not imply a particular answer is desired or expected. We greatly appreciate your clarification on this issue. CLINICAL DOCUMENTATION STATES: Patient came with complaint of fever, SOB and generalized weakness. CLINICAL FINDINGS SHOW: During admission: WBC - 14.3, Pulse - 111, Respiratory rate - 24 Chest x ray: Patchy infiltrate in lung base Antibiotics: IV Ceftriaxone, IV Zosyn Please respond to the following question: Is there a diagnosis specific to these symptoms or values? If so please state below. PHYSICIAN RESPONSE: Condition Present on Admission: [x ] Yes [ ] No [ ] Clinically Undeterminable Please also document in your Progress Notes and/or Discharge Summary and indicate if the condition was present on admission. Cheri COE
[2018-09-08 12:00] VITALS: BP 120/52
[2018-09-08 16:00] VITALS: BP 126/56
[2018-09-08 20:00] VITALS: BP 124/75
[2018-09-08] MEDS: Levemir Flexpen SUBQ SCH (21:00)
[2018-09-09] VITALS: BP 128/56
[2018-09-09] MEDS: Albuterol/Ipratropium 3ml neb HHN SCH ×4 (01:00→19:40)
[2018-09-09 04:00] VITALS: BP 129/60
[2018-09-09 08:00] VITALS: BP 124/60
--- NOTE | 2018-09-09 08:09 | Nephrology Progress Note ---
Assessment/Plan Plan ARF improving with D5W. Monitor Labs. Monitor BG. Using higher insulins. Subjective Subjective Confused Objective Objective Last 24 Hour Vital Signs Date Time Temp Pulse Resp B/P (MAP) Pulse Ox O2 Delivery O2 Flow Rate FiO2 09/09/18 07:30 Room Air 21 09/09/18 07:27 97 Room Air 21 09/09/18 07:27 88 16 97 Room Air 21 09/09/18 07:27 Room Air 21 09/09/18 04:00 97.3 88 18 129/60 (83) 98 09/09/18 04:00 88 09/09/18 02:02 Room Air 21 09/09/18 02:01 Room Air 21 09/09/18 00:00 88 09/09/18 00:00 97.7 72 16 128/56 (80) 96 09/08/18 21:00 Nasal Cannula 2.0 09/08/18 20:46 79 20 99 Room Air 09/08/18 20:34 Room Air 21 09/08/18 20:34 85 20 97 Room Air 09/08/18 20:31 97 Room Air 21 09/08/18 20:00 83 09/08/18 20:00 97.7 81 18 124/75 (91) 97 09/08/18 16:00 98.4 84 18 126/56 (79) 98 09/08/18 16:00 85 09/08/18 12:46 76 18 96 Nasal Cannula 2.0 28 09/08/18 12:38 74 18 92 Nasal Cannula 2.0 28 09/08/18 12:00 75 09/08/18 12:00 97.8 77 20 120/52 (74) 100 09/08/18 09:00 Nasal Cannula 2.0 Intake and Output 09/08/18 09/09/18 19:00 07:00 # Voids 3 2 # Bowel Movements 1 Height (Feet): 5 Height (Inches): 10.00 Weight (Pounds): 115 Objective Cv RR Lungs CTA Abd SNT. BS +. PEJ OK E No CCE Ann López MD Sep 09, 2018 08:09
[2018-09-09] MEDS: Zosyn 3.375gm q12h **Extended infusion IVPB SCH ×4 (08:40→20:34)
[2018-09-09] MEDS: Heparin 5000 units/ml inj SUBQ SCH ×3 (08:46→20:42)
[2018-09-09 09:13] LABS: BASOPHILS % (AUTO) 0.5 % (0.0-2.0); EOSINOPHILS % (AUTO) 5.2 % (0.0-3.0); HEMATOCRIT 40.3 % (42.0-52.0); HEMOGLOBIN 12.3 G/DL (14.2-18.0); LYMPHOCYTES % (AUTO) 8.4 % (20.0-45.0); MEAN CORPUSCULAR VOLUME 95 FL (80-99); MONOCYTES % (AUTO) 6.4 % (1.0-10.0); NEUTROPHILS % (AUTO) 79.5 % (45.0-75.0); PLATELET COUNT 203 K/UL (150-450); RED BLOOD COUNT 4.25 M/UL (4.70-6.10); RED CELL DISTRIBUTION WIDTH 15.3 % (11.6-14.8); WHITE BLOOD COUNT 8.9 K/UL (4.8-10.8)
[2018-09-09 09:25] LABS: ANION GAP 13 mmol/L (5-15); BLOOD UREA NITROGEN 55 mg/dL (7-18); CARBON DIOXIDE 27 MMOL/L (21-32); CHLORIDE 112 MMOL/L (98-107); CREATININE 2.2 MG/DL (0.55-1.30); POTASSIUM 3.6 MMOL/L (3.5-5.1); SODIUM 151 MMOL/L (136-145)
[2018-09-09 12:00] VITALS: BP 130/59
[2018-09-09 16:00] VITALS: BP 144/65
[2018-09-09 20:00] VITALS: BP 147/65
[2018-09-09] MEDS: Levemir Flexpen SUBQ SCH (20:37)
[2018-09-10] VITALS: BP 143/62
[2018-09-10] MEDS: Albuterol/Ipratropium 3ml neb HHN SCH ×4 (00:50→19:29)
[2018-09-10 04:00] VITALS: BP 141/59
[2018-09-10 07:23] LABS: ANION GAP 7 mmol/L (5-15); BLOOD UREA NITROGEN 37 mg/dL (7-18); CALCIUM 8.3 MG/DL (8.5-10.1); CARBON DIOXIDE 27 MMOL/L (21-32); CHLORIDE 108 MMOL/L (98-107); CREATININE 1.8 MG/DL (0.55-1.30); POTASSIUM 3.7 MMOL/L (3.5-5.1); SODIUM 142 MMOL/L (136-145)
[2018-09-10 07:30] LABS: BASOPHILS % (AUTO) 0.5 % (0.0-2.0); EOSINOPHILS % (AUTO) 4.5 % (0.0-3.0); HEMATOCRIT 37.6 % (42.0-52.0); HEMOGLOBIN 11.8 G/DL (14.2-18.0); MEAN CORPUSCULAR VOLUME 93 FL (80-99); MONOCYTES % (AUTO) 6.1 % (1.0-10.0); PLATELET COUNT 181 K/UL (150-450); RED BLOOD COUNT 4.05 M/UL (4.70-6.10); RED CELL DISTRIBUTION WIDTH 14.9 % (11.6-14.8); WHITE BLOOD COUNT 8.1 K/UL (4.8-10.8)
[2018-09-10 08:00] VITALS: BP 136/55
--- NOTE | 2018-09-10 08:28 | Diagnostic Imaging Report ---
Indication: Abnormal renal function tests Technique: Grayscale and duplex images of the kidneys, retroperitoneum, and bladder were obtained. Comparison: Abdomen ultrasound 07/25/2010 Findings: Right kidney measures 10.9 cm in length. Left kidney measures cm in length. Both kidneys demonstrate increased echogenicity. This is a new finding since previous abdominal ultrasound. There is mild fullness to the renal collecting systems but no mindi hydronephrosis. Left kidney demonstrates a small cyst. Questionable renal sinus calcifications are demonstrated bilaterally.. Normal inferior vena cava. Bladder is normal there are bilateral ureteral jets are noted. Impression: Increased renal echogenicity bilaterally, consistent with medical renal disease Negative for hydronephrosis Incidental finding small left renal cyst.
[2018-09-10] MEDS: Zosyn 3.375gm q12h **Extended infusion IVPB SCH ×2 (08:53)
[2018-09-10] MEDS: Heparin 5000 units/ml inj SUBQ SCH ×2 (08:56→21:12)
[2018-09-10] MEDS: 1/2NS w/KCl 20mEq 1000ml 1,000 ML IV SCH (10:28)
[2018-09-10 12:00] VITALS: BP 129/54
[2018-09-10 16:00] VITALS: BP 131/64
[2018-09-10 20:00] VITALS: BP 124/57
[2018-09-10] MEDS: Zosyn 3.375gm q8h **Extended infusion IVPB SCH ×2 (21:08)
[2018-09-10] MEDS: Levemir Flexpen SUBQ SCH (21:10)
[2018-09-11] VITALS (7 sets, daily range): BP systolic 124–174; BP diastolic 57–87
[2018-09-11] MEDS: Albuterol/Ipratropium 3ml neb HHN SCH ×2 (01:30→07:00)
[2018-09-11] MEDS: 1/2NS w/KCl 20mEq 1000ml 1,000 ML IV SCH ×2 (01:42→13:26)
[2018-09-11 04:17] LABS: BASOPHILS % (AUTO) 0.7 % (0.0-2.0); EOSINOPHILS % (AUTO) 4.6 % (0.0-3.0); HEMATOCRIT 40.4 % (42.0-52.0); HEMOGLOBIN 12.9 G/DL (14.2-18.0); LYMPHOCYTES % (AUTO) 8.8 % (20.0-45.0); MEAN CORPUSCULAR VOLUME 91 FL (80-99); MONOCYTES % (AUTO) 5.4 % (1.0-10.0); NEUTROPHILS % (AUTO) 80.6 % (45.0-75.0); PLATELET COUNT 244 K/UL (150-450); RED BLOOD COUNT 4.46 M/UL (4.70-6.10); RED CELL DISTRIBUTION WIDTH 14.7 % (11.6-14.8); WHITE BLOOD COUNT 10.6 K/UL (4.8-10.8)
[2018-09-11 04:36] LABS: ANION GAP 8 mmol/L (5-15); BLOOD UREA NITROGEN 33 mg/dL (7-18); CARBON DIOXIDE 27 MMOL/L (21-32); CHLORIDE 104 MMOL/L (98-107); CREATININE 1.7 MG/DL (0.55-1.30); POTASSIUM 3.9 MMOL/L (3.5-5.1); SODIUM 139 MMOL/L (136-145)
[2018-09-11] MEDS: Zosyn 3.375gm q8h **Extended infusion IVPB SCH ×6 (06:00→21:54)
[2018-09-11] MEDS: Heparin 5000 units/ml inj SUBQ SCH ×2 (09:00→21:00)
[2018-09-11] MEDS ORDERED: Pantoprazole Inj IVP SCH (09:00)
--- NOTE | 2018-09-11 09:53 | Nephrology Progress Note ---
Assessment/Plan Plan Acute Gastritis. Called Dr. Brooks. Holding TF. PPI. ARF improving with D5W. Monitor Labs. Monitor BG. Using higher insulins. Subjective Subjective Confused. Had Coffe Ground Emesis during the night. TF held. Objective Objective Last 24 Hour Vital Signs Date Time Temp Pulse Resp B/P (MAP) Pulse Ox O2 Delivery O2 Flow Rate FiO2 09/11/18 09:08 99 145/84 (104) 09/11/18 09:00 Room Air Room Air 09/11/18 08:00 98.4 110 20 174/87 (116) 90 09/11/18 08:00 98 09/11/18 07:00 Room Air 21 09/11/18 07:00 Room Air 21 09/11/18 04:12 98.2 85 19 135/78 (97) 94 09/11/18 04:00 80 09/11/18 01:40 79 18 98 Room Air 09/11/18 01:30 81 18 96 Room Air 09/11/18 00:00 97.9 85 19 124/57 (79) 98 09/11/18 00:00 80 09/10/18 21:00 Room Air Room Air 09/10/18 20:00 98.4 87 19 124/57 (79) 98 09/10/18 20:00 73 09/10/18 19:39 75 18 99 Room Air 09/10/18 19:29 78 18 98 Room Air 09/10/18 16:00 72 09/10/18 16:00 98.0 78 21 131/64 (86) 98 09/10/18 14:35 Room Air 09/10/18 14:35 Room Air 09/10/18 12:00 75 09/10/18 12:00 97.5 79 20 129/54 (79) 99 Intake and Output 09/10/18 09/11/18 18:59 06:59 Intake Total 75 ml Output Total 1250 ml 500 ml Balance -1175 ml -500 ml IV Total 75 ml Output Urine Total 1250 ml 500 ml Laboratory Tests 09/11/18 04:08: White Blood Count 10.6, Red Blood Count 4.46L, Hemoglobin 12.9L, Hematocrit 40.4L, Mean Corpuscular Volume 91, Mean Corpuscular Hemoglobin 28.9, Mean Corpuscular Hemoglobin Concent 31.9L, Red Cell Distribution Width 14.7, Platelet Count 244, Mean Platelet Volume 7.2, Neutrophils (%) (Auto) 80.6H, Lymphocytes (%) (Auto) 8.8L, Monocytes (%) (Auto) 5.4, Eosinophils (%) (Auto) 4.6H, Basophils (%) (Auto) 0.7, Sodium Level 139, Potassium Level 3.9, Chloride Level 104, Carbon Dioxide Level 27, Anion Gap 8, Blood Urea Nitrogen 33H, Creatinine 1.7H, Estimat Glomerular Filtration Rate , Glucose Level 136H, Calcium Level 9.0, Magnesium Level 2.3 Height (Feet): 5 Height (Inches): 10.00 Weight (Pounds): 115 Objective Cv RR Lungs CTA Abd SNT. BS +. PEJ OK E No SYBILE Ann López MD Sep 11, 2018 09:53
--- NOTE | 2018-09-11 10:48 | GI Initial Consult Note ---
History of Present Illness General Date patient seen: Sep 11, 2018 Time patient seen: 10:47 Reason for Hospitalization: Altered Level of Consciousness Referring physician: ANN ALDRIDGE Reason for Consultation: COFFEE GROUNDS Present Illness HPI Patient is an 82-year-old male brought in by EMS from nursing facility after increased temperature. Patient was noted to have fever up to 101. The patient had not been noted to have fever prior. Patient is normally has altered mental status. The patient was noted to have increased generalized weakness.Patient not been vomiting.The patient was noted to be increased generalized weakness. The patient does not undergo dialysis. GI consulted for coffee-ground emesis. This is a 82-year-old gentleman with a history of type 2 diabetes, hypertension, chronic kidney disease. The patient had a recent upper endoscopy on July 30, 2018 was noted to have a gastritis, duodenitis with shallow duodenal ulceration. Time biopsies were obtained on noted that the patient was negative for H. pylori, and focally active chronic duodenitis with erosion. Patient presents today with reports of coffee-ground emesis. Tube feedings are currently stopped. Labs reviewed; mild anemia, no leukocytosis, stable H&H. ROS limited, patient nonverbal G- tube dependent. Home Meds Active Scripts Fluconazole* (DIFLUCAN*) 100 Mg Tablet, 100 MG GT DAILY for 30 Days, TAB Prov:Ann López MD 08/11/18 Fenofibrate (Fenofibrate) 134 Mg Capsule, 134 MG ORAL DAILY for 30 Days, CAP Prov:Ann López MD 08/11/18 Insulin Detemir (LEVEMIR FLEXPEN) 100 Unit/1 Ml Insuln.pen, 12 UNITS SUBQ BEDTIME for 30 Days, EA Prov:Ann López MD 07/30/18 Insulin Aspart (Novolog Flexpen) 100 Unit/1 Ml Insuln.pen, 0 UNITS SUBQ EVERY 6 HOURS for 30 Days, EA Prov:Ann López MD 07/30/18 Heparin Sod (Porcine) (HEPARIN SODIUM*) 5 000/1 Ml Vial, 5000 UNITS SUBQ EVERY 12 HOURS for 30 Days, VIAL Prov:Ann López MD 07/30/18 Gemfibrozil (GEMFIBROZIL*) 600 Mg Tablet, 600 MG GT TWICE A DAY for 30 Days, TAB Prov:Ann López MD 07/30/18 Epoetin Juwan (PROCRIT) 20,000 Unit/1 Ml Vial, 31574 UNITS SUBQ MON-FRI-FRI for 30 Days, VIAL Prov:Ann López MD 07/30/18 Reported Medications Lactulose (LACTULOSE) 10 Gm/15 Ml Solution, 20 GM PO DAILY PRN for Constipation 08/07/18 Acetaminophen* (ACETAMINOPHEN 325MG TABLET*) 325 Mg Tablet, 650 MG GT Q6H PRN for For Pain, TAB 08/07/18 Metoclopramide Hcl* (METOCLOPRAMIDE HCL*) 10 Mg/10 Ml Solution, 10 MG ORAL EVERY 8 HOURS, ML 07/23/18 Insulin Aspart* (NOVOLOG*) 100 Unit/1 Ml Insuln.pen, 0 SUBQ BEFORE MEALS, #1 EA 0 Refills 07/23/18 Pantoprazole Sodium (PROTONIX) 20 Mg Tablet.dr, 40 MG ORAL DAILY, TAB 07/23/18 Loratadine (LORATADINE) 10 Mg Tablet, 10 MG PO 07/24/12 Allopurinol* (ZYLOPRIM*) 300 Mg Tablet, 300 MG PO DAILY 07/24/12 Metformin Hcl* (GLUCOPHAGE*) 850 Mg Tablet, 850 MG PO DAILY, #10 TAB Take 1 tablet by mouth every day. 07/24/12 Docusate Sodium* (COLACE*) 100 Mg Capsule, 100 MG PO DAILY, #10 CAP Take 1 capsule by mouth daily to soften stools. 07/24/12 Valsartan/Hydrochlorothiazide 160-12.5MG (DIOVAN HCT 160-12.5 MG TAB) 1 Each Tablet, 1 EACH PO 07/24/12 Metoprolol Succinate* (METOPROLOL SUCCINATE*) 25 Mg Tab.er.24h, 25 MG PO DAILY, #30 TAB Take one tablet by mouth daily 07/24/12 Sitagliptin (Januvia) 100 Mg Tab, 100 MG PO DAILY 07/24/12 Fluticasone Propionate (Fluticasone Propionate) 1 Sprays Naspr, 1 SPRAYS NA 07/24/12 Tamsulosin HCl (Flomax) 0.4 Mg Cap, 0.4 MG PO DAILY, #5 TAB Take 1 tablet by mouth daily for 5 days. 07/23/12 Simvastatin (ZOCOR) 20 Mg Tablet, 20 MG PO QHS 07/23/12 Multivitamin (VITAMIN) 473 Ml Liquid, ML PO 07/23/12 Unable to Obtain Medications (UNABLE TO OBTAIN MEDS) 1 Ea Ea 07/23/12 Med list reviewed/reconciled: Yes Allergies: Coded Allergies: No Known Allergies (Verified , 12/28/06) Patient History Limited by: medical condition History Provided By: Medical Record PMH Narrative Past Medical History: No History, Except For Hx Cardiac Problems: No Hx Hypertension: Yes Hx Diabetes: Yes Hx Cancer: No Hx Dialysis: No - CKD Hx Neurological Problems: Yes - ALOC Social History: Denies: smoking, alcohol use, drug use, other Review of Systems All Other Systems: negative except mentioned in HPI Physical Exam Vital Signs Date Time Temp Pulse Resp B/P (MAP) Pulse Ox O2 Delivery O2 Flow Rate FiO2 09/07/18 07:40 21 09/07/18 07:40 Room Air 09/07/18 07:40 80 18 99 09/07/18 07:45 2.0 09/07/18 08:00 97.5 121/57 (78) Sp02 EP Interpretation: reviewed, normal Labs Laboratory Tests Test 09/11/18 04:08 White Blood Count 10.6 K/UL (4.8-10.8) Red Blood Count 4.46 M/UL (4.70-6.10) L Hemoglobin 12.9 G/DL (14.2-18.0) L Hematocrit 40.4 % (42.0-52.0) L Mean Corpuscular Volume 91 FL (80-99) Mean Corpuscular Hemoglobin 28.9 PG (27.0-31.0) Mean Corpuscular Hemoglobin Concent 31.9 G/DL (32.0-36.0) L Red Cell Distribution Width 14.7 % (11.6-14.8) Platelet Count 244 K/UL (150-450) Mean Platelet Volume 7.2 FL (6.5-10.1) Neutrophils (%) (Auto) 80.6 % (45.0-75.0) H Lymphocytes (%) (Auto) 8.8 % (20.0-45.0) L Monocytes (%) (Auto) 5.4 % (1.0-10.0) Eosinophils (%) (Auto) 4.6 % (0.0-3.0) H Basophils (%) (Auto) 0.7 % (0.0-2.0) Sodium Level 139 MMOL/L (136-145) Potassium Level 3.9 MMOL/L (3.5-5.1) Chloride Level 104 MMOL/L (98-107) Carbon Dioxide Level 27 MMOL/L (21-32) Anion Gap 8 mmol/L (5-15) Blood Urea Nitrogen 33 mg/dL (7-18) H Creatinine 1.7 MG/DL (0.55-1.30) H Estimat Glomerular Filtration Rate mL/min (>60) Glucose Level 136 MG/DL (74-106) H Calcium Level 9.0 MG/DL (8.5-10.1) Magnesium Level 2.3 MG/DL (1.8-2.4) General Appearance: no apparent distress, thin Head: normocephalic EENT: PERRL/EOMI, normal ENT inspection Neck: supple Respiratory: normal breath sounds, no respiratory distress Cardiovascular: normal rate Gastrointestinal: normal inspection, non tender, soft, normal bowel sounds, non -distended, gt - Clean dry and intact Rectal: deferred Genitourinary: deferred Musculoskeletal: normal inspection, back normal Neurologic: alert, responsive Skin: normal inspection, normal color, no rash, warm/dry, palpation normal, well hydrated Lymphatic: normal inspection, no adenopathy Current Medications Current Medications Medications (Trade) Dose Ordered Sig/Jarrod Route PRN Reason Start Time Stop Time Status Last Admin Dose Admin Albuterol/ Ipratropium (Albuterol/ Ipratropium) 3 ml Q6HRT HHN 09/06/18 13:00 09/11/18 12:59 09/11/18 01:30 Heparin Sodium (Porcine) (Heparin 5000 units/ml) 5,000 units EVERY 12 HOURS SUBQ 09/05/18 21:00 10/05/18 20:59 09/10/18 21:12 Insulin Detemir (Levemir) 20 units QHS SUBQ 09/08/18 21:00 10/06/18 10:59 09/10/18 21:10 Ondansetron HCl (Zofran) 4 mg Q6H PRN IVP Nausea & Vomiting 09/11/18 06:45 10/11/18 06:44 Pantoprazole (Protonix) 40 mg DAILY IVP 09/11/18 09:00 10/11/18 08:59 Piperacillin Sod/ Tazobactam Sod 3.375 gm/Sodium Chloride 110 ml @ 27.5 mls/hr EVERY 8 HOURS IVPB 09/10/18 22:00 09/11/18 23:59 09/10/18 21:08 Sodium 1,000 ml @ 75 mls/hr [id number] IV 09/10/18 10:00 10/10/18 09:59 09/11/18 01:42 GI: Plan Problems: (1) Coffee ground emesis (2) Duodenal ulcer (3) Duodenitis (4) Altered level of consciousness (5) Occult blood in stools (6) G tube feedings (7) Renal insufficiency Plan Status post upper endoscopy July 30, 2018. 1. Gastritis, status post biopsy. 2. Duodenitis with shallow duodenal ulceration, status post biopsy. Defer endoscopy given recent procedure. Hold tube feedings, restart tomorrow Monitor H&H, as needed transfusions ppi BID defer reglan given elevated creatinine levels >> low dose erythromycin for GI motility fu labs Discussed with Dr. Brooks. Thank you for this patient referral, we will follow. The patient was seen and examined at bedside and all new and available data was reviewed in the patients chart. I agree with the above findings, impression and plan. (Patient seen earlier today. Signature stamp does not reflect patient encounter time.). - MD Graciela SanzIdalia-Wilman ACO COORDINATOR Sep 11, 2018 10:48
[2018-09-11] MEDS: Pantoprazole Inj IVP SCH (18:39)
[2018-09-11] MEDS: Levemir Flexpen SUBQ SCH (21:00)
[2018-09-12] VITALS: BP 144/66
[2018-09-12] MEDS: 1/2NS w/KCl 20mEq 1000ml 1,000 ML IV SCH ×2 (02:35→14:44)
[2018-09-12 04:00] VITALS: BP 137/66
[2018-09-12 08:00] VITALS: BP 145/65
[2018-09-12 08:12] LABS: BASOPHILS % (AUTO) 0.6 % (0.0-2.0); EOSINOPHILS % (AUTO) 5.3 % (0.0-3.0); HEMATOCRIT 36.6 % (42.0-52.0); HEMOGLOBIN 11.5 G/DL (14.2-18.0); LYMPHOCYTES % (AUTO) 8.7 % (20.0-45.0); MEAN CORPUSCULAR VOLUME 92 FL (80-99); NEUTROPHILS % (AUTO) 79.4 % (45.0-75.0); PLATELET COUNT 173 K/UL (150-450); RED BLOOD COUNT 3.97 M/UL (4.70-6.10); RED CELL DISTRIBUTION WIDTH 14.8 % (11.6-14.8); WHITE BLOOD COUNT 11.1 K/UL (4.8-10.8)
[2018-09-12 08:14] LABS: ANION GAP 12 mmol/L (5-15); BLOOD UREA NITROGEN 26 mg/dL (7-18); CALCIUM 8.3 MG/DL (8.5-10.1); CARBON DIOXIDE 20 MMOL/L (21-32); CHLORIDE 104 MMOL/L (98-107); CREATININE 1.4 MG/DL (0.55-1.30); POTASSIUM 4.3 MMOL/L (3.5-5.1); SODIUM 136 MMOL/L (136-145)
[2018-09-12] MEDS: Pantoprazole Inj IVP SCH ×2 (08:35→17:28)
[2018-09-12] MEDS: Heparin 5000 units/ml inj SUBQ SCH ×2 (08:45→21:00)
[2018-09-12 12:00] VITALS: BP 140/63
--- NOTE | 2018-09-12 12:33 | Nephrology Progress Note ---
Assessment/Plan Plan Acute Gastritis. Called Dr. Brooks. Holding TF. PPI. ARF improving with D5W. Monitor Labs. Monitor BG. Using higher insulins. Subjective Subjective Confused. TF held. Objective Objective Last 24 Hour Vital Signs Date Time Temp Pulse Resp B/P (MAP) Pulse Ox O2 Delivery O2 Flow Rate FiO2 09/12/18 09:00 Room Air Room Air 09/12/18 08:00 97.5 81 17 145/65 (91) 100 09/12/18 08:00 81 09/12/18 04:00 98.9 81 18 137/66 (89) 99 09/12/18 04:00 77 09/12/18 00:00 98.2 87 19 144/66 (92) 98 09/12/18 00:00 81 09/11/18 21:13 81 09/11/18 21:00 Room Air Room Air 09/11/18 20:00 98.5 89 21 150/70 (96) 95 09/11/18 16:00 98.8 91 20 145/59 (87) 95 09/11/18 16:00 89 09/11/18 12:45 Room Air 21 09/11/18 12:45 Room Air 21 Intake and Output 09/11/18 09/12/18 18:59 06:59 Output Total 300 ml 800 ml Balance -300 ml -800 ml Output Urine Total 300 ml 800 ml # Bowel Movements 1 1 Laboratory Tests 09/11/18 21:30: Stool Occult Blood Positive 09/12/18 06:25: White Blood Count 11.1H, Red Blood Count 3.97L, Hemoglobin 11.5L, Hematocrit 36.6L, Mean Corpuscular Volume 92, Mean Corpuscular Hemoglobin 29.0, Mean Corpuscular Hemoglobin Concent 31.4L, Red Cell Distribution Width 14.8, Platelet Count 173, Mean Platelet Volume 8.1, Neutrophils (%) (Auto) 79.4H, Lymphocytes (%) (Auto) 8.7L, Monocytes (%) (Auto) 6.0, Eosinophils (%) (Auto) 5.3H, Basophils (%) (Auto) 0.6, Sodium Level 136, Potassium Level 4.3, Chloride Level 104, Carbon Dioxide Level 20L, Anion Gap 12, Blood Urea Nitrogen 26H, Creatinine 1.4H, Estimat Glomerular Filtration Rate , Glucose Level 69L, Calcium Level 8.3L, Magnesium Level 1.7L Height (Feet): 5 Height (Inches): 10.00 Weight (Pounds): 115 Objective Cv RR Lungs CTA Abd SNT. BS +. PEJ OK E No CCE Ann López MD Sep 12, 2018 12:33
[2018-09-12] MEDS: Erythromycin Ethylsuccinate 200mg/5ml Susp GT SCH ×2 (12:52→17:55)
[2018-09-12 16:00] VITALS: BP 136/58
--- NOTE | 2018-09-12 16:28 | General Progress Note ---
Assessment/Plan Assessment/Plan Assessment - GIB - Anemia - Resolving Azotemia - OB (+) stools - Dysphagia, GT Recommendations - Continue TF - Monitor labs - PPI - EGD Friday Subjective Allergies: Coded Allergies: No Known Allergies (Verified , 12/28/06) Subjective NAD opens eyes tolerating TF - Glucerna Objective Last 24 Hour Vital Signs Date Time Temp Pulse Resp B/P (MAP) Pulse Ox O2 Delivery O2 Flow Rate FiO2 09/12/18 16:00 97.7 79 18 136/58 (84) 100 09/12/18 12:00 97.3 73 17 140/63 (88) 99 09/12/18 12:00 67 09/12/18 09:00 Room Air Room Air 09/12/18 08:00 97.5 81 17 145/65 (91) 100 09/12/18 08:00 81 09/12/18 04:00 98.9 81 18 137/66 (89) 99 09/12/18 04:00 77 09/12/18 00:00 98.2 87 19 144/66 (92) 98 09/12/18 00:00 81 09/11/18 21:13 81 09/11/18 21:00 Room Air Room Air 09/11/18 20:00 98.5 89 21 150/70 (96) 95 Intake and Output 09/11/18 09/12/18 19:00 07:00 Output Total 300 ml 800 ml Balance -300 ml -800 ml Output Urine Total 300 ml 800 ml # Bowel Movements 1 1 Laboratory Tests 09/11/18 21:30: Stool Occult Blood Positive 09/12/18 06:25: White Blood Count 11.1H, Red Blood Count 3.97L, Hemoglobin 11.5L, Hematocrit 36.6L, Mean Corpuscular Volume 92, Mean Corpuscular Hemoglobin 29.0, Mean Corpuscular Hemoglobin Concent 31.4L, Red Cell Distribution Width 14.8, Platelet Count 173, Mean Platelet Volume 8.1, Neutrophils (%) (Auto) 79.4H, Lymphocytes (%) (Auto) 8.7L, Monocytes (%) (Auto) 6.0, Eosinophils (%) (Auto) 5.3H, Basophils (%) (Auto) 0.6, Sodium Level 136, Potassium Level 4.3, Chloride Level 104, Carbon Dioxide Level 20L, Anion Gap 12, Blood Urea Nitrogen 26H, Creatinine 1.4H, Estimat Glomerular Filtration Rate , Glucose Level 69L, Calcium Level 8.3L, Magnesium Level 1.7L Height (Feet): 5 Height (Inches): 10.00 Weight (Pounds): 115 Objective Thin man NCAT supple CTA RRR Abd soft, (+) edema no edema OBS Paula Wang MD Sep 12, 2018 16:28
[2018-09-12 20:00] VITALS: BP 129/56
[2018-09-12] MEDS: Levemir Flexpen SUBQ SCH (21:44)
[2018-09-13] VITALS: BP 127/86
[2018-09-13] MEDS: Erythromycin Ethylsuccinate 200mg/5ml Susp GT SCH ×4 (00:14→17:12)
[2018-09-13 04:00] VITALS: BP 118/58
[2018-09-13] MEDS: 1/2NS w/KCl 20mEq 1000ml 1,000 ML IV SCH ×2 (05:01→17:12)
[2018-09-13 08:00] VITALS: BP 136/74
[2018-09-13] MEDS: Heparin 5000 units/ml inj SUBQ SCH ×2 (08:22→20:52)
[2018-09-13] MEDS: Pantoprazole Inj IVP SCH ×2 (08:28→17:12)
[2018-09-13 12:00] VITALS: BP 125/59
--- NOTE | 2018-09-13 13:10 | Nephrology Progress Note ---
Assessment/Plan Plan Acute Gastritis. Called Dr. Brooks. Holding TF. PPI. ARF improving with D5W. Monitor Labs. Monitor BG. Using higher insulins. Check Labs! Subjective Subjective Confused. TF held. Objective Objective Last 24 Hour Vital Signs Date Time Temp Pulse Resp B/P (MAP) Pulse Ox O2 Delivery O2 Flow Rate FiO2 09/13/18 09:00 Room Air Room Air 09/13/18 08:00 97.0 75 19 136/74 (94) 97 09/13/18 08:00 73 09/13/18 04:00 69 09/13/18 04:00 97.2 79 19 118/58 (78) 97 09/13/18 00:00 81 09/13/18 00:00 98.3 81 18 127/86 (100) 99 09/12/18 21:00 Room Air Room Air 09/12/18 20:00 76 09/12/18 20:00 97.4 76 19 129/56 (80) 99 09/12/18 16:00 74 09/12/18 16:00 97.7 79 18 136/58 (84) 100 Intake and Output 09/12/18 09/13/18 18:59 06:59 Output Total 600 ml Balance -600 ml Output Urine Total 600 ml # Voids 1 # Bowel Movements 3 Height (Feet): 5 Height (Inches): 10.00 Weight (Pounds): 115 Objective Cv RR Lungs CTA Abd SNT. BS +. PEJ OK E No SYBILE Ann López MD Sep 13, 2018 13:10
--- NOTE | 2018-09-13 14:06 | General Progress Note ---
Assessment/Plan Assessment/Plan Assessment - GIB - Anemia - Resolving Azotemia - OB (+) stools - Dysphagia, GT Recommendations - Continue TF - Monitor labs - PPI - Possible EGD Friday Subjective Allergies: Coded Allergies: No Known Allergies (Verified , 12/28/06) Subjective NAD opens eyes tolerating TF - Glucerna Objective Last 24 Hour Vital Signs Date Time Temp Pulse Resp B/P (MAP) Pulse Ox O2 Delivery O2 Flow Rate FiO2 09/13/18 12:00 78 09/13/18 12:00 97.0 75 21 125/59 (81) 100 09/13/18 09:00 Room Air Room Air 09/13/18 08:00 97.0 75 19 136/74 (94) 97 09/13/18 08:00 73 09/13/18 04:00 69 09/13/18 04:00 97.2 79 19 118/58 (78) 97 09/13/18 00:00 81 09/13/18 00:00 98.3 81 18 127/86 (100) 99 09/12/18 21:00 Room Air Room Air 09/12/18 20:00 76 09/12/18 20:00 97.4 76 19 129/56 (80) 99 09/12/18 16:00 74 09/12/18 16:00 97.7 79 18 136/58 (84) 100 Intake and Output 09/12/18 09/13/18 18:59 06:59 Output Total 600 ml Balance -600 ml Output Urine Total 600 ml # Voids 1 # Bowel Movements 3 Height (Feet): 5 Height (Inches): 10.00 Weight (Pounds): 115 Objective Thin man NCAT supple CTA RRR Abd soft, (+) edema no edema OBS Paula Wang MD Sep 13, 2018 14:05
[2018-09-13] MEDS ORDERED: Sterile Water Irrig 1000ml IRRIG ONE (15:44)
[2018-09-13 16:00] VITALS: BP 140/54
[2018-09-13] MEDS: Sucralfate 1gm tab ORAL SCH ×2 (17:12→20:49)
[2018-09-13 20:00] VITALS: BP 133/59
[2018-09-13] MEDS: Levemir Flexpen SUBQ SCH (20:57)
[2018-09-14] VITALS: BP 126/57
[2018-09-14 04:00] VITALS: BP 130/62
[2018-09-14 07:47] LABS: BASOPHILS % (AUTO) 0.8 % (0.0-2.0); HEMATOCRIT 31.3 % (42.0-52.0); HEMOGLOBIN 10.3 G/DL (14.2-18.0); LYMPHOCYTES % (AUTO) 7.6 % (20.0-45.0); MEAN CORPUSCULAR VOLUME 89 FL (80-99); MONOCYTES % (AUTO) 5.2 % (1.0-10.0); NEUTROPHILS % (AUTO) 84.3 % (45.0-75.0); PLATELET COUNT 273 K/UL (150-450); RED CELL DISTRIBUTION WIDTH 14.1 % (11.6-14.8); WHITE BLOOD COUNT 10.9 K/UL (4.8-10.8)
[2018-09-14 08:00] VITALS: BP 126/92
[2018-09-14 08:06] LABS: ANION GAP 7 mmol/L (5-15); BLOOD UREA NITROGEN 13 mg/dL (7-18); CALCIUM 8.1 MG/DL (8.5-10.1); CARBON DIOXIDE 27 MMOL/L (21-32); CHLORIDE 99 MMOL/L (98-107); CREATININE 1.3 MG/DL (0.55-1.30); POTASSIUM 4.4 MMOL/L (3.5-5.1); SODIUM 133 MMOL/L (136-145)
[2018-09-14] MEDS: Heparin 5000 units/ml inj SUBQ SCH ×2 (09:00→21:45)
[2018-09-14] MEDS: Sucralfate 1gm tab ORAL SCH (09:34)
--- NOTE | 2018-09-14 10:39 | GI Progress Note ---
Assessment/Plan Problems: (1) G tube feedings ICD Codes: Z93.1 - Gastrostomy status SNOMED: 374179065, 086879863 (2) Duodenitis ICD Codes: K29.80 - Duodenitis without bleeding SNOMED: 46114818 (3) Coffee ground emesis ICD Codes: K92.0 - Hematemesis SNOMED: 22290738, 149391334 (4) Duodenal ulcer ICD Codes: K26.9 - Duodenal ulcer, unspecified as acute or chronic, without hemorrhage or perforation SNOMED: 01516663 (5) Renal insufficiency ICD Codes: N28.9 - Disorder of kidney and ureter, unspecified SNOMED: 109018956, 136110903 (6) Occult blood in stools ICD Codes: R19.5 - Other fecal abnormalities SNOMED: 19073021, 814099327 Status: stable Status Narrative Discussed with Dr. Brooks. 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 I agree with the above findings, impression and plan. (Patient seen earlier today. Signature stamp does not reflect patient encounter time.). - Kentrell Brooks MD Subjective Subjective limited Objective Last 24 Hour Vital Signs Date Time Temp Pulse Resp B/P (MAP) Pulse Ox O2 Delivery O2 Flow Rate FiO2 09/14/18 04:00 78 09/14/18 04:00 98.0 82 18 130/62 (84) 97 09/14/18 00:00 75 09/14/18 00:00 98.4 78 19 126/57 (80) 97 09/13/18 21:00 Room Air Room Air 09/13/18 20:00 77 09/13/18 20:00 98.1 80 20 133/59 (83) 97 09/13/18 16:00 81 09/13/18 16:00 97.3 77 22 140/54 (82) 99 09/13/18 12:00 78 09/13/18 12:00 97.0 75 21 125/59 (81) 100 Intake and Output 09/13/18 09/14/18 19:00 07:00 Output Total 1500 ml 1300 ml Balance -1500 ml -1300 ml Output Urine Total 1500 ml 1300 ml # Bowel Movements 1 1 Laboratory Tests Test 09/14/18 07:15 White Blood Count 10.9 K/UL (4.8-10.8) H Red Blood Count 3.50 M/UL (4.70-6.10) L Hemoglobin 10.3 G/DL (14.2-18.0) L Hematocrit 31.3 % (42.0-52.0) L Mean Corpuscular Volume 89 FL (80-99) Mean Corpuscular Hemoglobin 29.3 PG (27.0-31.0) Mean Corpuscular Hemoglobin Concent 32.8 G/DL (32.0-36.0) Red Cell Distribution Width 14.1 % (11.6-14.8) Platelet Count 273 K/UL (150-450) Mean Platelet Volume 6.9 FL (6.5-10.1) Neutrophils (%) (Auto) 84.3 % (45.0-75.0) H Lymphocytes (%) (Auto) 7.6 % (20.0-45.0) L Monocytes (%) (Auto) 5.2 % (1.0-10.0) Eosinophils (%) (Auto) 2.0 % (0.0-3.0) Basophils (%) (Auto) 0.8 % (0.0-2.0) Sodium Level 133 MMOL/L (136-145) L Potassium Level 4.4 MMOL/L (3.5-5.1) Chloride Level 99 MMOL/L (98-107) Carbon Dioxide Level 27 MMOL/L (21-32) Anion Gap 7 mmol/L (5-15) Blood Urea Nitrogen 13 mg/dL (7-18) Creatinine 1.3 MG/DL (0.55-1.30) Estimat Glomerular Filtration Rate mL/min (>60) Glucose Level 55 MG/DL (74-106) L Calcium Level 8.1 MG/DL (8.5-10.1) L Magnesium Level 1.9 MG/DL (1.8-2.4) Height (Feet): 5 Height (Inches): 10.00 Weight (Pounds): 115 General Appearance: WD/WN, no apparent distress, alert, thin Cardiovascular: normal rate Respiratory/Chest: normal breath sounds, no respiratory distress Abdominal Exam: normal bowel sounds, non tender, soft, GT site - c/d/i Extremities: non-tender Supa Owens NP Sep 14, 2018 10:39
[2018-09-14] MEDS ORDERED: Sucralfate 1gm tab GT SCH (13:30)
--- NOTE | 2018-09-14 15:56 | Nephrology Progress Note ---
Assessment/Plan Plan Acute Gastritis resolving Called Dr. Brooks. On PPI + Carafate. ARF improving. Now on NS + KCL Monitor Labs. Monitor BG. Using higher insulins. Check Labs! Replete Mg. Taper off IVF. Subjective Subjective Confused. TF on 60ml/hr Objective Objective Last 24 Hour Vital Signs Date Time Temp Pulse Resp B/P (MAP) Pulse Ox O2 Delivery O2 Flow Rate FiO2 09/14/18 09:00 Room Air Room Air 09/14/18 08:00 98.1 79 19 126/92 (103) 97 09/14/18 08:00 75 09/14/18 04:00 78 09/14/18 04:00 98.0 82 18 130/62 (84) 97 09/14/18 00:00 75 09/14/18 00:00 98.4 78 19 126/57 (80) 97 09/13/18 21:00 Room Air Room Air 09/13/18 20:00 77 09/13/18 20:00 98.1 80 20 133/59 (83) 97 09/13/18 16:00 81 09/13/18 16:00 97.3 77 22 140/54 (82) 99 Intake and Output 09/13/18 09/14/18 18:59 06:59 Output Total 1500 ml 1300 ml Balance -1500 ml -1300 ml Output Urine Total 1500 ml 1300 ml # Bowel Movements 1 1 Laboratory Tests 09/14/18 07:15: White Blood Count 10.9H, Red Blood Count 3.50L, Hemoglobin 10.3L, Hematocrit 31.3L, Mean Corpuscular Volume 89, Mean Corpuscular Hemoglobin 29.3, Mean Corpuscular Hemoglobin Concent 32.8, Red Cell Distribution Width 14.1, Platelet Count 273, Mean Platelet Volume 6.9, Neutrophils (%) (Auto) 84.3H, Lymphocytes ( %) (Auto) 7.6L, Monocytes (%) (Auto) 5.2, Eosinophils (%) (Auto) 2.0, Basophils (%) (Auto) 0.8, Sodium Level 133L, Potassium Level 4.4, Chloride Level 99, Carbon Dioxide Level 27, Anion Gap 7, Blood Urea Nitrogen 13, Creatinine 1.3, Estimat Glomerular Filtration Rate , Glucose Level 55L, Calcium Level 8.1L, Magnesium Level 1.9 Height (Feet): 5 Height (Inches): 10.00 Weight (Pounds): 115 Objective Cv RR Lungs CTA Abd SNT. BS +. PEJ OK E No CCE Ann López MD Sep 14, 2018 15:56
[2018-09-14 15:59] VITALS: BP 139/67
[2018-09-14] MEDS: NS w/KCl 20mEq 1,000 ML IV SCH (18:29)
[2018-09-14] MEDS: Sucralfate 1gm tab GT SCH ×2 (18:29→21:43)
[2018-09-14 20:00] VITALS: BP 146/66
[2018-09-14] MEDS: Levemir Flexpen SUBQ SCH (21:48)
[2018-09-15] VITALS: BP 144/64
[2018-09-15] MEDS: NS w/KCl 20mEq 1,000 ML IV SCH ×2 (03:20→10:56)
[2018-09-15 04:00] VITALS: BP 155/82
[2018-09-15] MEDS ORDERED: Erythromycin Ethylsuccinate 200mg/5ml Susp GT SCH ×2 (06:30→08:00)
[2018-09-15] MEDS ORDERED: Erythromycin Ethylsuccinate 200mg/5ml Susp ORAL SCH (08:00)
[2018-09-15 08:55] VITALS: BP 139/69
[2018-09-15] MEDS: Sucralfate 1gm tab GT SCH ×4 (09:34→20:21)
[2018-09-15] MEDS: Erythromycin Ethylsuccinate 200mg/5ml Susp GT SCH ×3 (09:34→20:21)
[2018-09-15] MEDS: Heparin 5000 units/ml inj SUBQ SCH ×2 (09:35→20:23)
[2018-09-15 11:56] VITALS: BP 140/70
[2018-09-15 12:22] LABS: BASOPHILS % (AUTO) 1.6 % (0.0-2.0); EOSINOPHILS % (AUTO) 3.3 % (0.0-3.0); HEMATOCRIT 33.6 % (42.0-52.0); HEMOGLOBIN 10.7 G/DL (14.2-18.0); LYMPHOCYTES % (AUTO) 9.6 % (20.0-45.0); MEAN CORPUSCULAR VOLUME 93 FL (80-99); MONOCYTES % (AUTO) 6.1 % (1.0-10.0); NEUTROPHILS % (AUTO) 79.4 % (45.0-75.0); PLATELET COUNT 147 K/UL (150-450); RED BLOOD COUNT 3.62 M/UL (4.70-6.10); RED CELL DISTRIBUTION WIDTH 13.8 % (11.6-14.8); WHITE BLOOD COUNT 9.3 K/UL (4.8-10.8)
[2018-09-15 12:29] LABS: ANION GAP 5 mmol/L (5-15); BLOOD UREA NITROGEN 14 mg/dL (7-18); CALCIUM 7.9 MG/DL (8.5-10.1); CARBON DIOXIDE 27 MMOL/L (21-32); CHLORIDE 99 MMOL/L (98-107); CREATININE 1.1 MG/DL (0.55-1.30); SODIUM 131 MMOL/L (136-145)
--- NOTE | 2018-09-15 14:18 | GI Progress Note ---
Assessment/Plan Problems: (1) G tube feedings ICD Codes: Z93.1 - Gastrostomy status SNOMED: 814284226, 423710484 (2) Duodenitis ICD Codes: K29.80 - Duodenitis without bleeding SNOMED: 19304628 (3) Coffee ground emesis ICD Codes: K92.0 - Hematemesis SNOMED: 11105116, 869361414 (4) Duodenal ulcer ICD Codes: K26.9 - Duodenal ulcer, unspecified as acute or chronic, without hemorrhage or perforation SNOMED: 89062363 (5) Renal insufficiency ICD Codes: N28.9 - Disorder of kidney and ureter, unspecified SNOMED: 565052169, 129507909 (6) Occult blood in stools ICD Codes: R19.5 - Other fecal abnormalities SNOMED: 81504989, 988840528 Status: stable Status Narrative Discussed with Dr. Brooks. 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 I agree with the above findings, impression and plan. (Patient seen earlier today. Signature stamp does not reflect patient encounter time.). - Kenterll Brooks MD Subjective Subjective limited Objective Last 24 Hour Vital Signs Date Time Temp Pulse Resp B/P (MAP) Pulse Ox O2 Delivery O2 Flow Rate FiO2 09/15/18 12:00 75 09/15/18 11:56 98.4 82 20 140/70 (93) 98 09/15/18 09:00 Room Air Room Air 09/15/18 08:55 97.7 79 20 139/69 (92) 99 09/15/18 08:00 77 09/15/18 04:00 76 09/15/18 04:00 97.2 76 18 155/82 (106) 99 09/15/18 00:00 98.0 87 16 144/64 (90) 98 09/15/18 00:00 87 09/14/18 21:00 Room Air Room Air 09/14/18 20:00 98.0 78 18 146/66 (92) 98 09/14/18 20:00 78 09/14/18 16:00 74 09/14/18 15:59 97.5 77 18 139/67 (91) 97 Intake and Output 09/14/18 09/15/18 19:00 07:00 Intake Total 360 ml 1770 ml Output Total 750 ml Balance -390 ml 1770 ml Intake Free Water 130 ml IV Total 875 ml Tube Feeding 360 ml 765 ml Output Urine Total 750 ml # Voids 3 # Bowel Movements 1 Laboratory Tests Test 09/15/18 11:25 White Blood Count 9.3 K/UL (4.8-10.8) Red Blood Count 3.62 M/UL (4.70-6.10) L Hemoglobin 10.7 G/DL (14.2-18.0) L Hematocrit 33.6 % (42.0-52.0) L Mean Corpuscular Volume 93 FL (80-99) Mean Corpuscular Hemoglobin 29.4 PG (27.0-31.0) Mean Corpuscular Hemoglobin Concent 31.7 G/DL (32.0-36.0) L Red Cell Distribution Width 13.8 % (11.6-14.8) Platelet Count 147 K/UL (150-450) L Mean Platelet Volume 11.8 FL (6.5-10.1) H Neutrophils (%) (Auto) 79.4 % (45.0-75.0) H Lymphocytes (%) (Auto) 9.6 % (20.0-45.0) L Monocytes (%) (Auto) 6.1 % (1.0-10.0) Eosinophils (%) (Auto) 3.3 % (0.0-3.0) H Basophils (%) (Auto) 1.6 % (0.0-2.0) Sodium Level 131 MMOL/L (136-145) L Potassium Level 5.0 MMOL/L (3.5-5.1) Chloride Level 99 MMOL/L (98-107) Carbon Dioxide Level 27 MMOL/L (21-32) Anion Gap 5 mmol/L (5-15) Blood Urea Nitrogen 14 mg/dL (7-18) Creatinine 1.1 MG/DL (0.55-1.30) Estimat Glomerular Filtration Rate mL/min (>60) Glucose Level 136 MG/DL (74-106) H Calcium Level 7.9 MG/DL (8.5-10.1) L Magnesium Level 1.6 MG/DL (1.8-2.4) L Height (Feet): 5 Height (Inches): 10.00 Weight (Pounds): 134 General Appearance: WD/WN, no apparent distress, alert Cardiovascular: normal rate Respiratory/Chest: normal breath sounds, no respiratory distress Abdominal Exam: normal bowel sounds, non tender, soft, GT site - Clean dry intact Extremities: normal range of motion, non-tender Supa Owens NP Sep 15, 2018 14:18
--- NOTE | 2018-09-15 14:48 | Nephrology Progress Note ---
Assessment/Plan Plan Acute Gastritis resolving Called Dr. Brooks. On PPI + Carafate. ARF improving. Now on NS + KCL Monitor Labs. Monitor BG. Using higher insulins. DC ivf. Check Labs! Replete Mg. Taper off IVF. Subjective Subjective Confused. TF on 60ml/hr Objective Objective Last 24 Hour Vital Signs Date Time Temp Pulse Resp B/P (MAP) Pulse Ox O2 Delivery O2 Flow Rate FiO2 09/15/18 12:00 75 09/15/18 11:56 98.4 82 20 140/70 (93) 98 09/15/18 09:00 Room Air Room Air 09/15/18 08:55 97.7 79 20 139/69 (92) 99 09/15/18 08:00 77 09/15/18 04:00 76 09/15/18 04:00 97.2 76 18 155/82 (106) 99 09/15/18 00:00 98.0 87 16 144/64 (90) 98 09/15/18 00:00 87 09/14/18 21:00 Room Air Room Air 09/14/18 20:00 98.0 78 18 146/66 (92) 98 09/14/18 20:00 78 09/14/18 16:00 74 09/14/18 15:59 97.5 77 18 139/67 (91) 97 Intake and Output 09/14/18 09/15/18 19:00 07:00 Intake Total 360 ml 1770 ml Output Total 750 ml Balance -390 ml 1770 ml Intake Free Water 130 ml IV Total 875 ml Tube Feeding 360 ml 765 ml Output Urine Total 750 ml # Voids 3 # Bowel Movements 1 Laboratory Tests 09/15/18 11:25: White Blood Count 9.3, Red Blood Count 3.62L, Hemoglobin 10.7L, Hematocrit 33.6L , Mean Corpuscular Volume 93, Mean Corpuscular Hemoglobin 29.4, Mean Corpuscular Hemoglobin Concent 31.7L, Red Cell Distribution Width 13.8, Platelet Count 147L, Mean Platelet Volume 11.8H, Neutrophils (%) (Auto) 79.4H, Lymphocytes (%) (Auto) 9.6L, Monocytes (%) (Auto) 6.1, Eosinophils (%) (Auto) 3.3H, Basophils (%) (Auto) 1.6, Sodium Level 131L, Potassium Level 5.0, Chloride Level 99, Carbon Dioxide Level 27, Anion Gap 5, Blood Urea Nitrogen 14 , Creatinine 1.1, Estimat Glomerular Filtration Rate , Glucose Level 136H, Calcium Level 7.9L, Magnesium Level 1.6L Height (Feet): 5 Height (Inches): 10.00 Weight (Pounds): 134 Objective Cv RR Lungs CTA Abd SNT. BS +. PEJ OK E No CCE Ann López MD Sep 15, 2018 14:48
[2018-09-15 15:55] VITALS: BP 140/61
[2018-09-15] MEDS ORDERED: Tubing IV Secondary IV ONE (17:16)
[2018-09-15] MEDS ORDERED: D5W 275ml ONE (17:16)
[2018-09-15 20:00] VITALS: BP 153/72
[2018-09-15] MEDS: Levemir Flexpen SUBQ SCH (20:27)
[2018-09-16] VITALS: BP 133/57
[2018-09-16] MEDS: Erythromycin Ethylsuccinate 200mg/5ml Susp GT SCH ×3 (02:17→13:08)
[2018-09-16 04:00] VITALS: BP 140/73
[2018-09-16 08:00] VITALS: BP 134/62
[2018-09-16 08:03] LABS: BASOPHILS % (AUTO) 1.1 % (0.0-2.0); EOSINOPHILS % (AUTO) 4.2 % (0.0-3.0); HEMATOCRIT 34.3 % (42.0-52.0); HEMOGLOBIN 11.6 G/DL (14.2-18.0); MEAN CORPUSCULAR VOLUME 91 FL (80-99); MONOCYTES % (AUTO) 5.8 % (1.0-10.0); PLATELET COUNT 371 K/UL (150-450); RED BLOOD COUNT 3.76 M/UL (4.70-6.10); WHITE BLOOD COUNT 10.7 K/UL (4.8-10.8)
[2018-09-16 08:18] LABS: ANION GAP 5 mmol/L (5-15); BLOOD UREA NITROGEN 16 mg/dL (7-18); CALCIUM 8.6 MG/DL (8.5-10.1); CARBON DIOXIDE 27 MMOL/L (21-32); CHLORIDE 97 MMOL/L (98-107); CREATININE 1.3 MG/DL (0.55-1.30); SODIUM 129 MMOL/L (136-145)
[2018-09-16] MEDS: Sucralfate 1gm tab GT SCH ×2 (08:39→18:17)
[2018-09-16] MEDS: Heparin 5000 units/ml inj SUBQ SCH ×2 (08:41→20:55)
--- NOTE | 2018-09-16 08:48 | Nephrology Progress Note ---
Assessment/Plan Plan Acute Gastritis resolving Called Dr. Brooks. On PPI + Carafate. ARF improving. Now on NS + KCL Monitor Labs. Monitor BG. Using higher insulins. DC ivf. Check Labs! Na 129 --- monitor. Recurrent Dysnatremias. Replete Mg. Off IVF. Subjective Subjective Confused. TF on 60ml/hr Objective Objective Last 24 Hour Vital Signs Date Time Temp Pulse Resp B/P (MAP) Pulse Ox O2 Delivery O2 Flow Rate FiO2 09/16/18 08:00 97.2 75 20 134/62 (86) 97 09/16/18 04:00 97.7 86 25 140/73 (95) 97 09/16/18 04:00 75 09/16/18 00:00 97.3 82 20 133/57 (82) 98 09/16/18 00:00 75 09/15/18 21:00 Room Air Room Air 09/15/18 20:00 84 09/15/18 20:00 97.4 84 18 153/72 (99) 98 09/15/18 16:00 75 09/15/18 15:55 98.2 83 18 140/61 (87) 100 09/15/18 12:00 75 09/15/18 11:56 98.4 82 20 140/70 (93) 98 09/15/18 09:00 Room Air Room Air 09/15/18 08:55 97.7 79 20 139/69 (92) 99 Intake and Output 09/15/18 09/16/18 19:00 07:00 Intake Total 1020 ml 800 ml Output Total 600 ml 850 ml Balance 420 ml -50 ml Intake Free Water 150 ml 200 ml IV Total 150 ml Tube Feeding 720 ml 600 ml Output Urine Total 600 ml 850 ml # Bowel Movements 1 Laboratory Tests 09/15/18 11:25: White Blood Count 9.3, Red Blood Count 3.62L, Hemoglobin 10.7L, Hematocrit 33.6L , Mean Corpuscular Volume 93, Mean Corpuscular Hemoglobin 29.4, Mean Corpuscular Hemoglobin Concent 31.7L, Red Cell Distribution Width 13.8, Platelet Count 147L, Mean Platelet Volume 11.8H, Neutrophils (%) (Auto) 79.4H, Lymphocytes (%) (Auto) 9.6L, Monocytes (%) (Auto) 6.1, Eosinophils (%) (Auto) 3.3H, Basophils (%) (Auto) 1.6, Sodium Level 131L, Potassium Level 5.0, Chloride Level 99, Carbon Dioxide Level 27, Anion Gap 5, Blood Urea Nitrogen 14 , Creatinine 1.1, Estimat Glomerular Filtration Rate , Glucose Level 136H, Calcium Level 7.9L, Magnesium Level 1.6L 09/16/18 07:25: White Blood Count 10.7, Red Blood Count 3.76L, Hemoglobin 11.6L, Hematocrit 34.3L, Mean Corpuscular Volume 91, Mean Corpuscular Hemoglobin 30.8, Mean Corpuscular Hemoglobin Concent 33.6, Red Cell Distribution Width 14.0, Platelet Count 371#, Mean Platelet Volume 6.7, Neutrophils (%) (Auto) 78.0H, Lymphocytes (%) (Auto) 11.0L, Monocytes (%) (Auto) 5.8, Eosinophils (%) (Auto) 4.2H, Basophils (%) (Auto) 1.1, Sodium Level 129L, Potassium Level 5.0, Chloride Level 97L, Carbon Dioxide Level 27, Anion Gap 5, Blood Urea Nitrogen 16, Creatinine 1.3, Estimat Glomerular Filtration Rate , Glucose Level 107H, Calcium Level 8.6, Magnesium Level 2.7H Height (Feet): 5 Height (Inches): 10.00 Weight (Pounds): 136 Objective Cv RR Lungs CTA Abd SNT. BS +. PEJ OK E No SYBILE Ann López MD Sep 16, 2018 08:48
--- NOTE | 2018-09-16 10:43 | GI Progress Note ---
Assessment/Plan Problems: (1) G tube feedings ICD Codes: Z93.1 - Gastrostomy status SNOMED: 381359363, 413283115 (2) Duodenitis ICD Codes: K29.80 - Duodenitis without bleeding SNOMED: 16246998 (3) Coffee ground emesis ICD Codes: K92.0 - Hematemesis SNOMED: 95862551, 528228142 (4) Duodenal ulcer ICD Codes: K26.9 - Duodenal ulcer, unspecified as acute or chronic, without hemorrhage or perforation SNOMED: 04564287 (5) Renal insufficiency ICD Codes: N28.9 - Disorder of kidney and ureter, unspecified SNOMED: 714191573, 715894654 (6) Occult blood in stools ICD Codes: R19.5 - Other fecal abnormalities SNOMED: 16168349, 755523936 Status: stable Status Narrative Discussed with Dr. 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 I agree with the above findings, impression and plan. (Patient seen earlier today. Signature stamp does not reflect patient encounter time.). - Kentrell Brooks MD Subjective Subjective limited Objective Last 24 Hour Vital Signs Date Time Temp Pulse Resp B/P (MAP) Pulse Ox O2 Delivery O2 Flow Rate FiO2 09/16/18 09:00 Room Air Room Air 09/16/18 08:00 97.2 75 20 134/62 (86) 97 09/16/18 04:00 97.7 86 25 140/73 (95) 97 09/16/18 04:00 75 09/16/18 00:00 97.3 82 20 133/57 (82) 98 09/16/18 00:00 75 09/15/18 21:00 Room Air Room Air 09/15/18 20:00 84 09/15/18 20:00 97.4 84 18 153/72 (99) 98 09/15/18 16:00 75 12/18/18 15:55 98.2 83 18 140/61 (87) 100 09/15/18 12:00 75 09/15/18 11:56 98.4 82 20 140/70 (93) 98 Intake and Output 09/15/18 09/16/18 19:00 07:00 Intake Total 1020 ml 800 ml Output Total 600 ml 850 ml Balance 420 ml -50 ml Intake Free Water 150 ml 200 ml IV Total 150 ml Tube Feeding 720 ml 600 ml Output Urine Total 600 ml 850 ml # Bowel Movements 1 Laboratory Tests Test 09/15/18 11:25 09/16/18 07:25 White Blood Count 9.3 K/UL (4.8-10.8) 10.7 K/UL (4.8-10.8) Red Blood Count 3.62 M/UL (4.70-6.10) L 3.76 M/UL (4.70-6.10) L Hemoglobin 10.7 G/DL (14.2-18.0) L 11.6 G/DL (14.2-18.0) L Hematocrit 33.6 % (42.0-52.0) L 34.3 % (42.0-52.0) L Mean Corpuscular Volume 93 FL (80-99) 91 FL (80-99) Mean Corpuscular Hemoglobin 29.4 PG (27.0-31.0) 30.8 PG (27.0-31.0) Mean Corpuscular Hemoglobin Concent 31.7 G/DL (32.0-36.0) L 33.6 G/DL (32.0-36.0) Red Cell Distribution Width 13.8 % (11.6-14.8) 14.0 % (11.6-14.8) Platelet Count 147 K/UL (150-450) L 371 K/UL (150-450) # Mean Platelet Volume 11.8 FL (6.5-10.1) H 6.7 FL (6.5-10.1) Neutrophils (%) (Auto) 79.4 % (45.0-75.0) H 78.0 % (45.0-75.0) H Lymphocytes (%) (Auto) 9.6 % (20.0-45.0) L 11.0 % (20.0-45.0) L Monocytes (%) (Auto) 6.1 % (1.0-10.0) 5.8 % (1.0-10.0) Eosinophils (%) (Auto) 3.3 % (0.0-3.0) H 4.2 % (0.0-3.0) H Basophils (%) (Auto) 1.6 % (0.0-2.0) 1.1 % (0.0-2.0) Sodium Level 131 MMOL/L (136-145) L 129 MMOL/L (136-145) L Potassium Level 5.0 MMOL/L (3.5-5.1) 5.0 MMOL/L (3.5-5.1) Chloride Level 99 MMOL/L (98-107) 97 MMOL/L (98-107) L Carbon Dioxide Level 27 MMOL/L (21-32) 27 MMOL/L (21-32) Anion Gap 5 mmol/L (5-15) 5 mmol/L (5-15) Blood Urea Nitrogen 14 mg/dL (7-18) 16 mg/dL (7-18) Creatinine 1.1 MG/DL (0.55-1.30) 1.3 MG/DL (0.55-1.30) Estimat Glomerular Filtration Rate mL/min (>60) mL/min (>60) Glucose Level 136 MG/DL (74-106) H 107 MG/DL (74-106) H Calcium Level 7.9 MG/DL (8.5-10.1) L 8.6 MG/DL (8.5-10.1) Magnesium Level 1.6 MG/DL (1.8-2.4) L 2.7 MG/DL (1.8-2.4) H Height (Feet): 5 Height (Inches): 10.00 Weight (Pounds): 136 General Appearance: WD/WN, no apparent distress, alert Cardiovascular: normal rate Respiratory/Chest: normal breath sounds, no respiratory distress Abdominal Exam: normal bowel sounds, non tender, soft, GT site - Clean dry and intact Extremities: non-tender Supa Owens NP Sep 16, 2018 10:43
[2018-09-16 12:00] VITALS: BP 129/57
[2018-09-16] MEDS ORDERED: Sodium Chloride 1gm Tab GT SCH (12:05)
[2018-09-16 16:00] VITALS: BP 141/71
[2018-09-16 20:00] VITALS: BP 137/60
[2018-09-16] MEDS: Levemir Flexpen SUBQ SCH (20:55)
[2018-09-17] VITALS: BP 125/53
[2018-09-17 04:00] VITALS: BP 130/58
[2018-09-17 06:34] LABS: BASOPHILS % (AUTO) 1.1 % (0.0-2.0); EOSINOPHILS % (AUTO) 4.4 % (0.0-3.0); HEMATOCRIT 33.5 % (42.0-52.0); HEMOGLOBIN 11.2 G/DL (14.2-18.0); MEAN CORPUSCULAR VOLUME 93 FL (80-99); MONOCYTES % (AUTO) 7.4 % (1.0-10.0); NEUTROPHILS % (AUTO) 75.1 % (45.0-75.0); PLATELET COUNT 359 K/UL (150-450); RED BLOOD COUNT 3.62 M/UL (4.70-6.10); RED CELL DISTRIBUTION WIDTH 14.1 % (11.6-14.8); WHITE BLOOD COUNT 9.1 K/UL (4.8-10.8)
[2018-09-17 06:57] LABS: ANION GAP 3 mmol/L (5-15); BLOOD UREA NITROGEN 19 mg/dL (7-18); CALCIUM 8.2 MG/DL (8.5-10.1); CARBON DIOXIDE 29 MMOL/L (21-32); CHLORIDE 98 MMOL/L (98-107); CREATININE 1.3 MG/DL (0.55-1.30); POTASSIUM 5.5 MMOL/L (3.5-5.1); SODIUM 130 MMOL/L (136-145)
[2018-09-17 08:00] VITALS: BP 116/65
[2018-09-17] MEDS: Heparin 5000 units/ml inj SUBQ SCH ×2 (09:00→22:17)
[2018-09-17] MEDS: Sucralfate 1gm tab GT SCH ×2 (09:42→17:22)
[2018-09-17 12:00] VITALS: BP 112/64
--- NOTE | 2018-09-17 12:05 | GI Progress Note ---
Assessment/Plan Problems: (1) G tube feedings ICD Codes: Z93.1 - Gastrostomy status SNOMED: 292342439, 161696928 (2) Duodenitis ICD Codes: K29.80 - Duodenitis without bleeding SNOMED: 88151671 (3) Coffee ground emesis ICD Codes: K92.0 - Hematemesis SNOMED: 50267850, 555191037 (4) Duodenal ulcer ICD Codes: K26.9 - Duodenal ulcer, unspecified as acute or chronic, without hemorrhage or perforation SNOMED: 00357922 (5) Renal insufficiency ICD Codes: N28.9 - Disorder of kidney and ureter, unspecified SNOMED: 449588430, 468203942 (6) Occult blood in stools ICD Codes: R19.5 - Other fecal abnormalities SNOMED: 61452211, 709251907 Status: stable Status Narrative Discussed with Dr. Brooks. 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 I agree with the above findings, impression and plan. (Patient seen earlier today. Signature stamp does not reflect patient encounter time.). - Kentrell Brooks MD Subjective Subjective limited Objective Last 24 Hour Vital Signs Date Time Temp Pulse Resp B/P (MAP) Pulse Ox O2 Delivery O2 Flow Rate FiO2 09/17/18 09:00 Room Air Room Air 09/17/18 08:00 97.9 87 18 116/65 (82) 100 09/17/18 08:00 79 09/17/18 04:00 69 09/17/18 04:00 98.0 82 24 130/58 (82) 98 09/17/18 00:00 77 09/17/18 00:00 97.2 80 22 125/53 (77) 97 09/16/18 21:00 Room Air Room Air 09/16/18 20:00 78 09/16/18 20:00 97.9 89 28 137/60 (85) 98 09/16/18 16:00 77 09/16/18 16:00 97.5 78 21 141/71 (94) 98 Intake and Output 09/16/18 09/17/18 19:00 07:00 Intake Total 60 ml 750 ml Output Total 500 ml 400 ml Balance -440 ml 350 ml Intake Free Water 150 ml Tube Feeding 60 ml 600 ml Output Urine Total 500 ml 400 ml # Bowel Movements 1 Laboratory Tests Test 09/16/18 17:20 09/17/18 05:30 Stool Occult Blood Pending White Blood Count 9.1 K/UL (4.8-10.8) Red Blood Count 3.62 M/UL (4.70-6.10) L Hemoglobin 11.2 G/DL (14.2-18.0) L Hematocrit 33.5 % (42.0-52.0) L Mean Corpuscular Volume 93 FL (80-99) Mean Corpuscular Hemoglobin 31.0 PG (27.0-31.0) Mean Corpuscular Hemoglobin Concent 33.4 G/DL (32.0-36.0) Red Cell Distribution Width 14.1 % (11.6-14.8) Platelet Count 359 K/UL (150-450) Mean Platelet Volume 7.4 FL (6.5-10.1) Neutrophils (%) (Auto) 75.1 % (45.0-75.0) H Lymphocytes (%) (Auto) 12.0 % (20.0-45.0) L Monocytes (%) (Auto) 7.4 % (1.0-10.0) Eosinophils (%) (Auto) 4.4 % (0.0-3.0) H Basophils (%) (Auto) 1.1 % (0.0-2.0) Sodium Level 130 MMOL/L (136-145) L Potassium Level 5.5 MMOL/L (3.5-5.1) H Chloride Level 98 MMOL/L (98-107) Carbon Dioxide Level 29 MMOL/L (21-32) Anion Gap 3 mmol/L (5-15) L Blood Urea Nitrogen 19 mg/dL (7-18) H Creatinine 1.3 MG/DL (0.55-1.30) Estimat Glomerular Filtration Rate mL/min (>60) Glucose Level 146 MG/DL (74-106) H Calcium Level 8.2 MG/DL (8.5-10.1) L Height (Feet): 5 Height (Inches): 10.00 Weight (Pounds): 118 General Appearance: WD/WN, no apparent distress, alert Cardiovascular: normal rate Respiratory/Chest: normal breath sounds, no respiratory distress Abdominal Exam: normal bowel sounds, non tender, soft, GT site - clear / dry / intact Extremities: non-tender Supa Owens NP Sep 17, 2018 12:05
[2018-09-17] MEDS ORDERED: Sodium Chloride 1gm Tab GT SCH (12:09)
--- NOTE | 2018-09-17 15:17 | Nephrology Progress Note ---
Assessment/Plan Plan Acute Gastritis resolving Called Dr. Brooks. On PPI + Carafate. ARF improving. Now on NS + KCL Monitor Labs. Monitor BG. Using higher insulins. DC ivf. Check Labs! Na 129 --- monitor. Recurrent Dysnatremias. Replete Mg. Off IVF. k 5.5 ---> Change TF to Nepro Subjective Subjective Confused. TF on 60ml/hr Objective Objective Last 24 Hour Vital Signs Date Time Temp Pulse Resp B/P (MAP) Pulse Ox O2 Delivery O2 Flow Rate FiO2 09/17/18 12:00 97.8 92 18 112/64 (80) 100 09/17/18 12:00 89 09/17/18 09:00 Room Air Room Air 09/17/18 08:00 97.9 87 18 116/65 (82) 100 09/17/18 08:00 79 09/17/18 04:00 69 09/17/18 04:00 98.0 82 24 130/58 (82) 98 09/17/18 00:00 77 09/17/18 00:00 97.2 80 22 125/53 (77) 97 09/16/18 21:00 Room Air Room Air 09/16/18 20:00 78 09/16/18 20:00 97.9 89 28 137/60 (85) 98 09/16/18 16:00 77 09/16/18 16:00 97.5 78 21 141/71 (94) 98 Intake and Output 09/16/18 09/17/18 19:00 07:00 Intake Total 60 ml 750 ml Output Total 500 ml 400 ml Balance -440 ml 350 ml Intake Free Water 150 ml Tube Feeding 60 ml 600 ml Output Urine Total 500 ml 400 ml # Bowel Movements 1 Laboratory Tests 09/16/18 17:20: Stool Occult Blood Negative 09/17/18 05:30: White Blood Count 9.1, Red Blood Count 3.62L, Hemoglobin 11.2L, Hematocrit 33.5L , Mean Corpuscular Volume 93, Mean Corpuscular Hemoglobin 31.0, Mean Corpuscular Hemoglobin Concent 33.4, Red Cell Distribution Width 14.1, Platelet Count 359, Mean Platelet Volume 7.4, Neutrophils (%) (Auto) 75.1H, Lymphocytes ( %) (Auto) 12.0L, Monocytes (%) (Auto) 7.4, Eosinophils (%) (Auto) 4.4H, Basophils (%) (Auto) 1.1, Sodium Level 130L, Potassium Level 5.5H, Chloride Level 98, Carbon Dioxide Level 29, Anion Gap 3L, Blood Urea Nitrogen 19H, Creatinine 1.3, Estimat Glomerular Filtration Rate , Glucose Level 146H, Calcium Level 8.2L Height (Feet): 5 Height (Inches): 10.00 Weight (Pounds): 118 Objective Cv RR Lungs CTA Abd SNT. BS +. PEJ OK E No CCE Ann López MD Sep 17, 2018 15:17
[2018-09-17 17:06] VITALS: BP 134/69
[2018-09-17 20:00] VITALS: BP 144/63
[2018-09-17] MEDS: Levemir Flexpen SUBQ SCH (22:15)
[2018-09-18] VITALS: BP 134/78
[2018-09-18 04:00] VITALS: BP 142/62
[2018-09-18 06:36] LABS: EOSINOPHILS % (AUTO) 4.7 % (0.0-3.0); HEMATOCRIT 33.2 % (42.0-52.0); HEMOGLOBIN 11.7 G/DL (14.2-18.0); LYMPHOCYTES % (AUTO) 10.2 % (20.0-45.0); MEAN CORPUSCULAR VOLUME 93 FL (80-99); MONOCYTES % (AUTO) 8.8 % (1.0-10.0); NEUTROPHILS % (AUTO) 75.3 % (45.0-75.0); PLATELET COUNT 320 K/UL (150-450); RED BLOOD COUNT 3.58 M/UL (4.70-6.10); RED CELL DISTRIBUTION WIDTH 14.3 % (11.6-14.8); WHITE BLOOD COUNT 9.3 K/UL (4.8-10.8)
[2018-09-18 07:11] LABS: ANION GAP 7 mmol/L (5-15); BLOOD UREA NITROGEN 26 mg/dL (7-18); CALCIUM 8.7 MG/DL (8.5-10.1); CARBON DIOXIDE 27 MMOL/L (21-32); CHLORIDE 96 MMOL/L (98-107); CREATININE 1.3 MG/DL (0.55-1.30); POTASSIUM 5.6 MMOL/L (3.5-5.1); SODIUM 130 MMOL/L (136-145)
[2018-09-18 08:00] VITALS: BP 133/77
--- NOTE | 2018-09-18 08:43 | Nephrology Progress Note ---
Assessment/Plan Plan Acute Gastritis resolving Called Dr. Brooks. On PPI + Carafate. ARF improving. Now on NS + KCL Monitor Labs. Monitor BG. Using higher insulins. DC ivf. Check Labs! Na 129 --- monitor. Recurrent Dysnatremias. Replete Mg. Off IVF. k 5.6---> Despite Changes TF to Nepro. Add Daily Kayexalate. Subjective Subjective Confused. TF on 60ml/hr Objective Objective Last 24 Hour Vital Signs Date Time Temp Pulse Resp B/P (MAP) Pulse Ox O2 Delivery O2 Flow Rate FiO2 09/18/18 04:00 97.4 81 18 142/62 (88) 94 09/18/18 04:00 87 09/18/18 00:00 97.3 88 14 134/78 (96) 95 09/18/18 00:00 80 09/17/18 21:00 Room Air Room Air 09/17/18 20:00 82 09/17/18 20:00 97.5 83 16 144/63 (90) 99 09/17/18 17:06 98.0 83 18 134/69 (90) 100 09/17/18 15:38 94 09/17/18 12:00 97.8 92 18 112/64 (80) 100 09/17/18 12:00 89 09/17/18 09:00 Room Air Room Air Intake and Output 09/17/18 09/18/18 19:00 07:00 Intake Total 120 ml 960 ml Output Total 500 ml Balance -380 ml 960 ml Intake Free Water 60 ml 480 ml Tube Feeding 60 ml 480 ml Output Urine Total 500 ml # Voids 2 # Bowel Movements 1 Laboratory Tests 09/18/18 05:10: White Blood Count 9.3, Red Blood Count 3.58L, Hemoglobin 11.7L, Hematocrit 33.2L , Mean Corpuscular Volume 93, Mean Corpuscular Hemoglobin 32.7H, Mean Corpuscular Hemoglobin Concent 35.2, Red Cell Distribution Width 14.3, Platelet Count 320, Mean Platelet Volume 6.8, Neutrophils (%) (Auto) 75.3H, Lymphocytes ( %) (Auto) 10.2L, Monocytes (%) (Auto) 8.8, Eosinophils (%) (Auto) 4.7H, Basophils (%) (Auto) 1.0, Sodium Level 130L, Potassium Level 5.6H, Chloride Level 96L, Carbon Dioxide Level 27, Anion Gap 7, Blood Urea Nitrogen 26H, Creatinine 1.3, Estimat Glomerular Filtration Rate , Glucose Level 138H, Calcium Level 8.7 Height (Feet): 5 Height (Inches): 10.00 Weight (Pounds): 120 Objective Cv RR Lungs CTA Abd SNT. BS +. PEJ OK E No CCE Ann López MD Sep 18, 2018 08:43
[2018-09-18] MEDS: Sucralfate 1gm tab GT SCH ×2 (09:15→18:36)
[2018-09-18] MEDS: Sodium Polystyrene Sulfonate 15gm Powder GT SCH (09:15)
[2018-09-18] MEDS: Heparin 5000 units/ml inj SUBQ SCH ×2 (09:16→21:34)
[2018-09-18 12:00] VITALS: BP 146/68
--- NOTE | 2018-09-18 14:27 | GI Progress Note ---
Assessment/Plan Problems: (1) G tube feedings ICD Codes: Z93.1 - Gastrostomy status SNOMED: 389222891, 927195920 (2) Duodenitis ICD Codes: K29.80 - Duodenitis without bleeding SNOMED: 56501708 (3) Coffee ground emesis ICD Codes: K92.0 - Hematemesis SNOMED: 38043454, 331164847 (4) Duodenal ulcer ICD Codes: K26.9 - Duodenal ulcer, unspecified as acute or chronic, without hemorrhage or perforation SNOMED: 06226548 (5) Renal insufficiency ICD Codes: N28.9 - Disorder of kidney and ureter, unspecified SNOMED: 990123401, 397066235 (6) Occult blood in stools ICD Codes: R19.5 - Other fecal abnormalities SNOMED: 25855319, 132068541 Status: stable Status Narrative Discussed with Dr. Brooks Assessment/Plan Assessment - GIB >> stable H&H - Anemia - Resolving Azotemia - OB (+) stools, thinking OB stool negative - Dysphagia, GT - history of DU - had recent EGD Recommendations - Continue TF - Monitor labs - Gemfibrozil - PPI, add Carafate - prn transfusions - fu labs - electrolyte correction - DC planning The patient was seen and examined at bedside and all new and available data was reviewed in the patients chart. I agree with the above findings, impression and plan. (Patient seen earlier today. Signature stamp does not reflect patient encounter time.). - Kentrell Brooks MD Subjective Subjective limited Objective Last 24 Hour Vital Signs Date Time Temp Pulse Resp B/P (MAP) Pulse Ox O2 Delivery O2 Flow Rate FiO2 09/18/18 09:00 Room Air 09/18/18 09:00 86 09/18/18 04:00 97.4 81 18 142/62 (88) 94 09/18/18 04:00 87 09/18/18 00:00 97.3 88 14 134/78 (96) 95 09/18/18 00:00 80 09/17/18 21:00 Room Air Room Air 09/17/18 20:00 82 09/17/18 20:00 97.5 83 16 144/63 (90) 99 09/17/18 17:06 98.0 83 18 134/69 (90) 100 09/17/18 15:38 94 Intake and Output 09/17/18 09/18/18 19:00 07:00 Intake Total 120 ml 960 ml Output Total 500 ml Balance -380 ml 960 ml Intake Free Water 60 ml 480 ml Tube Feeding 60 ml 480 ml Output Urine Total 500 ml # Voids 2 # Bowel Movements 1 Laboratory Tests Test 09/18/18 05:10 White Blood Count 9.3 K/UL (4.8-10.8) Red Blood Count 3.58 M/UL (4.70-6.10) L Hemoglobin 11.7 G/DL (14.2-18.0) L Hematocrit 33.2 % (42.0-52.0) L Mean Corpuscular Volume 93 FL (80-99) Mean Corpuscular Hemoglobin 32.7 PG (27.0-31.0) H Mean Corpuscular Hemoglobin Concent 35.2 G/DL (32.0-36.0) Red Cell Distribution Width 14.3 % (11.6-14.8) Platelet Count 320 K/UL (150-450) Mean Platelet Volume 6.8 FL (6.5-10.1) Neutrophils (%) (Auto) 75.3 % (45.0-75.0) H Lymphocytes (%) (Auto) 10.2 % (20.0-45.0) L Monocytes (%) (Auto) 8.8 % (1.0-10.0) Eosinophils (%) (Auto) 4.7 % (0.0-3.0) H Basophils (%) (Auto) 1.0 % (0.0-2.0) Sodium Level 130 MMOL/L (136-145) L Potassium Level 5.6 MMOL/L (3.5-5.1) H Chloride Level 96 MMOL/L (98-107) L Carbon Dioxide Level 27 MMOL/L (21-32) Anion Gap 7 mmol/L (5-15) Blood Urea Nitrogen 26 mg/dL (7-18) H Creatinine 1.3 MG/DL (0.55-1.30) Estimat Glomerular Filtration Rate mL/min (>60) Glucose Level 138 MG/DL (74-106) H Calcium Level 8.7 MG/DL (8.5-10.1) Height (Feet): 5 Height (Inches): 10.00 Weight (Pounds): 120 General Appearance: WD/WN, no apparent distress, alert Cardiovascular: normal rate Respiratory/Chest: normal breath sounds, no respiratory distress Abdominal Exam: normal bowel sounds, non tender, soft, GT site - Clean dry and intact Extremities: non-tender Supa Owens NP Sep 18, 2018 14:27
[2018-09-18 16:00] VITALS: BP 128/76
[2018-09-18 20:00] VITALS: BP 153/92
[2018-09-18] MEDS: Levemir Flexpen SUBQ SCH (21:34)
[2018-09-19] VITALS: BP 137/60
[2018-09-19 04:00] VITALS: BP 142/65
[2018-09-19 05:50] LABS: BASOPHILS % (AUTO) 1.2 % (0.0-2.0); EOSINOPHILS % (AUTO) 4.3 % (0.0-3.0); HEMATOCRIT 33.1 % (42.0-52.0); HEMOGLOBIN 11.4 G/DL (14.2-18.0); LYMPHOCYTES % (AUTO) 11.9 % (20.0-45.0); MEAN CORPUSCULAR VOLUME 92 FL (80-99); NEUTROPHILS % (AUTO) 75.6 % (45.0-75.0); PLATELET COUNT 368 K/UL (150-450); RED BLOOD COUNT 3.61 M/UL (4.70-6.10); RED CELL DISTRIBUTION WIDTH 13.8 % (11.6-14.8); WHITE BLOOD COUNT 9.4 K/UL (4.8-10.8)
[2018-09-19 06:15] LABS: ANION GAP 8 mmol/L (5-15); BLOOD UREA NITROGEN 29 mg/dL (7-18); CALCIUM 8.8 MG/DL (8.5-10.1); CARBON DIOXIDE 28 MMOL/L (21-32); CHLORIDE 95 MMOL/L (98-107); CREATININE 1.2 MG/DL (0.55-1.30); POTASSIUM 4.6 MMOL/L (3.5-5.1); SODIUM 131 MMOL/L (136-145)
[2018-09-19 08:00] VITALS: BP 124/71
[2018-09-19] MEDS: Sucralfate 1gm tab GT SCH ×2 (08:27→17:56)
[2018-09-19] MEDS: Heparin 5000 units/ml inj SUBQ SCH ×2 (08:30→20:58)
--- NOTE | 2018-09-19 08:41 | General Progress Note ---
Assessment/Plan Assessment/Plan Assessment - GIB >> stable H&H - Anemia - Resolving Azotemia - OB (+) stools, repeat OB stool negative - Dysphagia, GT - history of DU - had recent EGD Recommendations - Continue TF - Monitor labs - Gemfibrozil - PPI, add Carafate - prn transfusions - fu labs - electrolyte correction - DC planning Subjective ROS Limited/Unobtainable: No Allergies: Coded Allergies: No Known Allergies (Verified , 12/28/06) Objective Last 24 Hour Vital Signs Date Time Temp Pulse Resp B/P (MAP) Pulse Ox O2 Delivery O2 Flow Rate FiO2 09/19/18 04:00 80 09/19/18 04:00 98.5 83 20 142/65 (90) 100 09/19/18 00:00 83 09/19/18 00:00 98.3 86 20 137/60 (85) 100 09/18/18 21:00 Room Air 09/18/18 20:00 69 09/18/18 20:00 98.8 83 20 153/92 (112) 98 09/18/18 16:00 98.0 84 20 128/76 (93) 98 09/18/18 16:00 85 09/18/18 12:00 76 09/18/18 12:00 96.6 79 20 146/68 (94) 98 09/18/18 09:00 Room Air 09/18/18 09:00 86 Intake and Output 09/18/18 09/19/18 18:59 06:59 Intake Total 1320 ml 120 ml Output Total 1500 ml Balance -180 ml 120 ml Intake Free Water 660 ml 60 ml Tube Feeding 660 ml 60 ml Output Urine Total 1500 ml # Voids 3 # Bowel Movements 2 Laboratory Tests 09/19/18 05:25: White Blood Count 9.4, Red Blood Count 3.61L, Hemoglobin 11.4L, Hematocrit 33.1L , Mean Corpuscular Volume 92, Mean Corpuscular Hemoglobin 31.5H, Mean Corpuscular Hemoglobin Concent 34.3, Red Cell Distribution Width 13.8, Platelet Count 368, Mean Platelet Volume 6.4L, Neutrophils (%) (Auto) 75.6H, Lymphocytes (%) (Auto) 11.9L, Monocytes (%) (Auto) 7.0, Eosinophils (%) (Auto) 4.3H, Basophils (%) (Auto) 1.2, Sodium Level 131L, Potassium Level 4.6, Chloride Level 95L, Carbon Dioxide Level 28, Anion Gap 8, Blood Urea Nitrogen 29H, Creatinine 1.2, Estimat Glomerular Filtration Rate , Glucose Level 145H, Calcium Level 8.8 Height (Feet): 5 Height (Inches): 10.00 Weight (Pounds): 118 General Appearance: no apparent distress EENT: normal ENT inspection Neck: supple Cardiovascular: normal rate Respiratory/Chest: decreased breath sounds Abdomen: normal bowel sounds, non tender, soft Extremities: non-tender Kentrell Brooks MD Sep 19, 2018 08:41
[2018-09-19] MEDS: Sodium Polystyrene Sulfonate 15gm Powder GT SCH (09:00)
[2018-09-19 11:47] VITALS: BP 132/65
--- NOTE | 2018-09-19 12:38 | Nephrology Progress Note ---
Assessment/Plan Plan Acute Gastritis resolving Called Dr. Brooks. On PPI + Carafate. ARF improving. Now on NS + KCL Monitor Labs. Monitor BG. Using higher insulins. DC ivf. Check Labs! Na>130 --- monitor. Recurrent Dysnatremias. Replete Mg. Off IVF. k normalized with Kayexalate. Monitor 24 h. Subjective Subjective Confused. TF on 60ml/hr Objective Objective Last 24 Hour Vital Signs Date Time Temp Pulse Resp B/P (MAP) Pulse Ox O2 Delivery O2 Flow Rate FiO2 09/19/18 11:47 96.9 85 20 132/65 (87) 99 09/19/18 09:00 Room Air 09/19/18 08:00 84 09/19/18 08:00 97.7 86 16 124/71 (88) 97 09/19/18 04:00 80 09/19/18 04:00 98.5 83 20 142/65 (90) 100 09/19/18 00:00 83 09/19/18 00:00 98.3 86 20 137/60 (85) 100 09/18/18 21:00 Room Air 09/18/18 20:00 69 09/18/18 20:00 98.8 83 20 153/92 (112) 98 09/18/18 16:00 98.0 84 20 128/76 (93) 98 09/18/18 16:00 85 Intake and Output 09/18/18 09/19/18 19:00 07:00 Intake Total 1440 ml Output Total 1500 ml Balance -60 ml Intake Free Water 720 ml Tube Feeding 720 ml Output Urine Total 1500 ml # Voids 3 # Bowel Movements 2 Laboratory Tests 09/19/18 05:25: White Blood Count 9.4, Red Blood Count 3.61L, Hemoglobin 11.4L, Hematocrit 33.1L , Mean Corpuscular Volume 92, Mean Corpuscular Hemoglobin 31.5H, Mean Corpuscular Hemoglobin Concent 34.3, Red Cell Distribution Width 13.8, Platelet Count 368, Mean Platelet Volume 6.4L, Neutrophils (%) (Auto) 75.6H, Lymphocytes (%) (Auto) 11.9L, Monocytes (%) (Auto) 7.0, Eosinophils (%) (Auto) 4.3H, Basophils (%) (Auto) 1.2, Sodium Level 131L, Potassium Level 4.6, Chloride Level 95L, Carbon Dioxide Level 28, Anion Gap 8, Blood Urea Nitrogen 29H, Creatinine 1.2, Estimat Glomerular Filtration Rate , Glucose Level 145H, Calcium Level 8.8 Height (Feet): 5 Height (Inches): 10.00 Weight (Pounds): 118 Objective Cv RR Lungs CTA Abd SNT. BS +. PEJ OK E No CCE Ann López MD Sep 19, 2018 12:38
[2018-09-19 16:00] VITALS: BP 136/66
[2018-09-19 20:00] VITALS: BP_SYST 150; BP_SYST 153; BP_DIAS 107; BP_DIAS 70
[2018-09-19] MEDS: Levemir Flexpen SUBQ SCH (20:57)
[2018-09-20] VITALS: BP 153/70
[2018-09-20 04:00] VITALS: BP 112/48
[2018-09-20 08:00] VITALS: BP 130/60
[2018-09-20 08:45] LABS: ANION GAP 8 mmol/L (5-15); BLOOD UREA NITROGEN 37 mg/dL (7-18); CALCIUM 9.7 MG/DL (8.5-10.1); CARBON DIOXIDE 28 MMOL/L (21-32); CHLORIDE 94 MMOL/L (98-107); CREATININE 1.4 MG/DL (0.55-1.30); POTASSIUM 4.7 MMOL/L (3.5-5.1); SODIUM 130 MMOL/L (136-145)
--- NOTE | 2018-09-20 08:47 | General Progress Note ---
Assessment/Plan Assessment/Plan Assessment - GIB >> stable H&H - Anemia - Resolving Azotemia - OB (+) stools, repeat OB stool negative - Dysphagia, GT - history of DU - had recent EGD Recommendations - Continue TF - Monitor labs - Gemfibrozil - PPI, add Carafate - prn transfusions - fu labs - electrolyte correction - DC planning -swallow eval ordered Subjective ROS Limited/Unobtainable: No Allergies: Coded Allergies: No Known Allergies (Verified , 12/28/06) Objective Last 24 Hour Vital Signs Date Time Temp Pulse Resp B/P (MAP) Pulse Ox O2 Delivery O2 Flow Rate FiO2 09/20/18 08:00 98.5 87 20 130/60 (83) 98 09/20/18 04:00 87 09/20/18 04:00 98.1 95 20 112/48 (69) 97 09/20/18 00:00 89 09/20/18 00:00 98.0 102 20 153/70 (97) 96 09/19/18 21:00 Room Air 09/19/18 20:00 98.1 89 20 150/107 (121) 99 09/19/18 20:00 92 09/19/18 16:00 93 09/19/18 16:00 98.2 100 20 136/66 (89) 96 09/19/18 12:00 79 09/19/18 11:47 96.9 85 20 132/65 (87) 99 09/19/18 09:00 Room Air Intake and Output 09/19/18 09/20/18 18:59 06:59 Intake Total 480 ml Output Total 200 ml 500 ml Balance -200 ml -20 ml Intake Free Water 120 ml Tube Feeding 360 ml Output Urine Total 200 ml 500 ml # Voids 1 Laboratory Tests 09/20/18 06:55: Sodium Level 130L, Potassium Level 4.7, Chloride Level 94L, Carbon Dioxide Level 28, Anion Gap 8, Blood Urea Nitrogen 37H, Creatinine 1.4H, Estimat Glomerular Filtration Rate , Glucose Level 175H, Calcium Level 9.7 Height (Feet): 5 Height (Inches): 10.00 Weight (Pounds): 133 General Appearance: no apparent distress EENT: normal ENT inspection Neck: supple Cardiovascular: normal rate Respiratory/Chest: decreased breath sounds Abdomen: normal bowel sounds, non tender, soft Extremities: non-tender Vosoghi,Kentrell MD Sep 20, 2018 08:47
[2018-09-20] MEDS: Sucralfate 1gm tab GT SCH ×2 (09:13→17:24)
[2018-09-20] MEDS: Heparin 5000 units/ml inj SUBQ SCH (09:14)
[2018-09-20] MEDS: Sodium Polystyrene Sulfonate 15gm Powder GT SCH (09:22)
[2018-09-20 12:00] VITALS: BP 122/64
--- NOTE | 2018-09-20 12:10 | Nephrology Progress Note ---
Assessment/Plan Plan Acute Gastritis resolving Called Dr. Brooks. On PPI + Carafate. ARF improving. Now on NS + KCL Monitor Labs. Monitor BG. Using higher insulins. DC ivf. Check Labs! Na>130 --- monitor. Recurrent Dysnatremias. Replete Mg. Off IVF. k normalized with Kayexalate. Monitor 24 h.-----> OK. DC to SNF Subjective Subjective Confused. TF on 60ml/hr Objective Objective Last 24 Hour Vital Signs Date Time Temp Pulse Resp B/P (MAP) Pulse Ox O2 Delivery O2 Flow Rate FiO2 09/20/18 09:00 Room Air 09/20/18 08:04 83 09/20/18 08:00 98.5 87 20 130/60 (83) 98 09/20/18 04:00 87 09/20/18 04:00 98.1 95 20 112/48 (69) 97 09/20/18 00:00 89 09/20/18 00:00 98.0 102 20 153/70 (97) 96 09/19/18 21:00 Room Air 09/19/18 20:00 98.1 89 20 150/107 (121) 99 09/19/18 20:00 92 09/19/18 16:00 93 09/19/18 16:00 98.2 100 20 136/66 (89) 96 Intake and Output 09/19/18 09/20/18 18:59 06:59 Intake Total 480 ml Output Total 200 ml 500 ml Balance -200 ml -20 ml Intake Free Water 120 ml Tube Feeding 360 ml Output Urine Total 200 ml 500 ml # Voids 1 Laboratory Tests 09/20/18 06:55: Sodium Level 130L, Potassium Level 4.7, Chloride Level 94L, Carbon Dioxide Level 28, Anion Gap 8, Blood Urea Nitrogen 37H, Creatinine 1.4H, Estimat Glomerular Filtration Rate , Glucose Level 175H, Calcium Level 9.7 Height (Feet): 5 Height (Inches): 10.00 Weight (Pounds): 133 Objective Cv RR Lungs CTA Abd SNT. BS +. PEJ OK E No SYBILE Ann López MD Sep 20, 2018 12:10
[2018-09-20] MEDS ORDERED: LANSOPRAZOLE30 MG GT (12:12)
[2018-09-20] MEDS ORDERED: HEPARIN SO5000 UNIT2 SUBQ (12:12)
[2018-09-20] MEDS ORDERED: SODIUM POLYSTYRENE SULFONATE GT (12:12)
[2018-09-20] MEDS ORDERED: LEVEMIR FL100 UNIT/1 SUBQ (12:12)
[2018-09-20] MEDS ORDERED: CARAFATE1 G1 GT (12:12)
[2018-09-20 16:00] VITALS: BP 134/62
--- NOTE | 2018-09-21 14:31 | Cardiology Report ---
APPROVED REPORT EKG Measurement Heart [id number] [place] [id number] [id number] Sinus tachycardia Right bundle branch block Borderline ECG
--- NOTE | 2018-09-22 09:52 | Discharge Summary ---
Discharge Summary Discharge Summary _ DATE OF ADMISSION: 09/05/2018 DATE OF DISCHARGE: 09/20/2018 DISCHARGED BY: Dr. Phillips REASON FOR ADMISSION: 82 years old male with past medical history of hypertension, diabetes mellitus type 2, chronic kidney disease, dysphagia, G-tube, organic brain syndrome, anemia , chronic kidney disease stage III, recurrent multiple admissions for volume depletion, acute renal failure and upper gastrointestinal bleeding , presented to emergency room from the [facility] for evaluation due to fever. Patient was noted to have fever at the facility over 101 and generalized weakness. Upon evaluation patient was tachycardic tachypneic, no fever. Laboratory workup revealed leukocytosis WBC 14.3. Stable hemoglobin and hematocrit. Chemistry showed sodium 163, potassium 6.1. BUN 132 creatinine 3.1 initial BUN 1 creatinine 3.2. Magnesium 3.4. Glucose 449. Troponin negative. EKG revealed sinus tachycardia , no acute ischemic changes. Albumin 2.8. Chest x-ray revealed patchy infiltrate in the left lung base. ABG initially revealed hypercapnia. Patient admitted with diagnoses of sepsis, probable pneumonia, acute renal failure, extreme volume depletion secondary to dehydration , hypernatremia. CONSULTANTS: GI specialist Dr. Brooks [facility]SE: Patient admitted to telemetry floor and started on hypotonic IV fluids with close monitoring of renal parameters and electrolytes. Nephrotoxins were avoided. Electrolytes corrected as needed. Hypernatremia resolved , electrolytes stabilized. Prior to discharge BUN 37, creatinine 1.4. Renal ultrasound revealed increased renal echogenicity bilaterally, consistent with medical renal disease. But was negative for hydronephrosis Patient started on empiric antibiotic for pneumonia . Patient completed course of Zosyn while in the hospital. Supplemental oxygen provided as needed to keep pulse oximetry above 92%. Pulse oximetry remained stable on room air Leukocytosis resolved. Blood sugar was managed with long-acting Levemir and sliding scale of insulin as needed. Diabetic tube feeding provided. Blood sugar stabilized. GI specialist closely followed. Patient recently on July 30, 2018, undergone upper endoscopy with findings of gastritis ,status post biopsy ,duodenitis with shallow duodenal ulceration , status post biopsy. Patient started on proton pump inhibitor twice a day and Carafate. Patient started on low-dose of erythromycin for GI motility. Reglan was deferred given elevated creatinine level. Tube feeding restarted the next day with strict aspiration /reflux precautions. G-tube site care provided. Stool for occult blood x1 was positive x1 was negative. No evidence of GI bleeding. Hemoglobin hematocrit were closely monitored with goal to keep hemoglobin above 7. No evidence of GI bleeding. Hemoglobin hematocrit remained at baseline. Prior to discharge hemoglobin 11.4 hematocrit 33.1. Patient was able to tolerate tube feeding. [employer] Technician recommendation implemented in plan of care. Patient appeared to be at high nutritional risk per senior biostatistician/group leader assessment. DVT prophylaxis provided. Supportive care provided. Patient clinically stabilized and was ready for discharge to longterm facility for continuation of care. FINAL DIAGNOSES: Probably sepsis Probably pneumonia Acute renal failure on chronic kidney disease stage III ( due to extreme volume depletion) Extreme volume depletion secondary to dehydration Hypernatremia , secondary to volume depletion Acute gastritis Electrolyte imbalances Dysphagia , G-tube feeding Anemia Diabetes mellitus type 2, not controlled Duodenal ulcer with duodenitis DISCHARGE MEDICATIONS: See Medication Reconciliation list. DISCHARGE INSTRUCTIONS: Patient was discharged to the longterm facility. Follow up with medical doctor at the facility. I have been assigned to dictate discharge summary for this account. I was not involved in the patient's management. Mari Edmond NP Sep 22, 2018 09:52
== END 2018-09-20 20:03 | DRG 871 ==
LOC: EDBD 11:01 → EMR 11:48 → EDBEDREQ 12:05 → 2E 12:20 → EDBEDREQ 13:48 → 2E 09-08 12:05
DX: A41.9 Sepsis, unspecified organism (principal); J18.9 Pneumonia, unspecified organism; K26.4 Chronic or unspecified duodenal ulcer with hemorrhage; N17.9 Acute kidney failure, unspecified; E87.0 Hyperosmolality and hypernatremia; E86.9 Volume depletion, unspecified; I12.9 Hypertensive chronic kidney disease with stage 1 through stage 4 chronic kidney disease, or unspecified chronic kidney disease; E11.22 Type 2 diabetes mellitus with diabetic chronic kidney disease; N18.3 Chronic kidney disease, stage 3 (moderate); D64.9 Anemia, unspecified; K21.9 Gastro-esophageal reflux disease without esophagitis; K29.80 Duodenitis without bleeding; Z93.1 Gastrostomy status; R13.10 Dysphagia, unspecified; E11.65 Type 2 diabetes mellitus with hyperglycemia
CPT/HCPCS: 36415; 36600; 71045; 76770; 80048; 80053; 80202; 82270; 82550; 82553; 82803; 82962; 83605; 83735; 84100; 84484; 85025; 86850; 86900; 86901; 87040; 87081; 93005; 94640; 94664; 94760; 96365; 96366; 96367; 96375; 99285; J7620; S5561

== ENCOUNTER 2018-11-03 23:27 | Inpatient (IN) | payer MEDICARE, OTHER ==
[~2018-11-03] VITALS: Ht 172.7 cm; Wt 62.1 kg
[~2018-11-03 23:27] MED LIST changes: +CARAFATE1 G1 GT; +LANSOPRAZOLE30 MG GT; +SODIUM POLYSTYRENE SULFONATE GT
[2018-11-03] MEDS ORDERED: DOCUSATE SODIU100 MG GT (23:43)
[2018-11-03] MEDS ORDERED: MILK OF MA400 MG/51 GT (23:43)
[2018-11-03] MEDS ORDERED: ACETAMINOPHEN325 M1 GT (23:43)
[2018-11-03] MEDS ORDERED: GERI-KOT8.6 MG PO (23:43)
[2018-11-03] MEDS ORDERED: GLUCERNA 1.5 C237 ML GT (23:43)
[2018-11-03] MEDS ORDERED: Acetaminophen 650mg/20.3ml NG ONE (23:45)
[2018-11-03] MEDS ORDERED: Sodium Chloride 1,900 ML IVLG ONE (23:45)
--- NOTE | 2018-11-03 23:58 | Emergency Room Report ---
History of Present Illness General Chief Complaint: Abnormal Labs Source: Medical Record, EMS Present Illness HPI This is an 82-year-old elderly from [facility]. He presents with chief complaint of abnormal labs. He had blood work done today which show a very abnormal kidney function. His feeling is 118 and creatinine is 2.58. He is also anemic. Patient is a poor historian 100 gave me history. He has a history of stroke, diabetes, and G-tube placement. No other complaint. Allergies: Coded Allergies: No Known Allergies (Verified , 12/28/06) Patient History Past Medical History: see triage record, old chart reviewed Past Surgical History: other Pertinent Family History: none Social History: Denies: smoking Immunizations: other Reviewed Nursing Documentation: PMH: Agreed; PSxH: Agreed Nursing Documentation-PMH Hx Cardiac Problems: No Hx Hypertension: Yes Hx Diabetes: Yes Hx Cancer: No Hx Dialysis: No - CKD, ARF Hx Neurological Problems: Yes - ALOC, ORGANIC BRAIN SYNDROME Review of Systems Eye: Denies: eye pain, blurred vision ENT: Denies: ear pain, nose congestion, throat swelling Respiratory: Reports: cough; Denies: shortness of breath Cardiovascular: Denies: chest pain, palpitations Gastrointestinal: Denies: abdominal pain, diarrhea, nausea, vomiting Musculoskeletal: Denies: back pain, joint pain Skin: Denies: rash Neurological: Denies: headache, numbness Endocrine: Denies: increased thirst, increased urine Hematologic/Lymphatic: Denies: easy bruising All Other Systems: negative except mentioned in HPI Physical Exam Vital Signs Date Time Temp Pulse Resp B/P (MAP) Pulse Ox O2 Delivery O2 Flow Rate FiO2 11/03/18 23:33 99.1 98 20 132/62 92 Room Air vitals with hypoxia and fever. Repeat temperature 100.2 orally Sp02 EP Interpretation: abnormal General Appearance: mild distress, cachetic, Chronically Ill Head: normocephalic, atraumatic Eyes: bilateral eye PERRL, bilateral eye EOMI ENT: hearing grossly normal, dry mucus membranes Neck: full range of motion, supple, no meningismus Respiratory: chest non-tender, decreased breath sounds, rhonchi Cardiovascular #1: regular rate, rhythm, no murmur Gastrointestinal: normal bowel sounds, non tender, no mass, no organomegaly, no bruit, non-distended Musculoskeletal: back normal, other - Contracted Neurologic: alert Psychiatric: mood/affect normal Skin: warm/dry Procedures Critical Care Time Critical Care Time Critical care is mandated in this patient who presented with sepsis from pneumonia. Patient require my urgent intervention to attenuate the risks of metabolic collapse which may lead to cardiovascular collapse and . Critical care time is 35 minutes excluding any reportable procedure. Critical care time included evaluation, multiple reevaluation, looking at old charts, interpreting laboratory and diagnostic data, discussing case with patient and family and consultants, and charting. Medical Decision Making Diagnostic Impression: Primary Impression: ARF (acute renal failure) Qualified Codes: N17.9 - Acute kidney failure, unspecified Additional Impressions: HCAP (healthcare-associated pneumonia) Dehydration Sepsis due to pneumonia UTI (urinary tract infection) Qualified Codes: N30.00 - Acute cystitis without hematuria Anemia Qualified Codes: D64.9 - Anemia, unspecified Proteinuria Qualified Codes: R80.9 - Proteinuria, unspecified Aspiration pneumonia Qualified Codes: J69.0 - Pneumonitis due to inhalation of food and vomit ER Course Patient with severe dehydration with acute renal failure. He has low-grade fever and leukocytosis. This is sepsis from pneumonia and also UTI. I cover him with cefepime and Levaquin for healthcare acquired pneumonia. Added Flagyl for aspiration pneumonia. Urinalysis finally came back and it also showed infection. In the past, he grew out ESBL Escherichia coli and Proteus. Unfortunately these to back to reassess are resistant to cefepime and Levaquin. There is sensitive to Zosyn. I added Zosyn. Discussed the case with Dr. Ruby who will admit. Lab Results Impression labs with elevation of BUN and creat EKG Diagnostic Results Rate: normal Rhythm: NSR ST Segments: other - NSST changes Rhythm Strip Diag. Results Rhythm Strip Time: 23:57 EP Interpretation: yes Rate: 95 Rhythm: NSR, no PVC's, no ectopy Chest X-Ray Diagnostic Results Chest X-Ray Diagnostic Results : Chest X-Ray Ordered: Yes # of Views/Limited/Complete: 1 View Indication: Shortness of Breath EP Interpretation: Yes Interpretation: no effusion, no pneumothorax, other - rml infiltrate Impression: Other - rml infiltrate Electronically Signed by: Luis Eduardo Owens MD Last Vital Signs Date Time Temp Pulse Resp B/P (MAP) Pulse Ox O2 Delivery O2 Flow Rate FiO2 11/03/18 23:33 99.1 98 20 132/62 92 Room Air Status: improved Disposition: ADMITTED INPATIENT Condition: Serious Luis Eduardo Owens MD Nov 03, 2018 23:58
[2018-11-04] MEDS ORDERED: Cefepime HCl 1 GM in D5W 55 ML IVPB ONE ×2
[2018-11-04 00:22] LABS: BASOPHILS % (AUTO) 0.9 % (0.0-2.0); EOSINOPHILS % (AUTO) 2.7 % (0.0-3.0); HEMOGLOBIN 10.5 G/DL (14.2-18.0); LYMPHOCYTES % (AUTO) 12.1 % (20.0-45.0); MEAN CORPUSCULAR VOLUME 95 FL (80-99); MONOCYTES % (AUTO) 5.1 % (1.0-10.0); NEUTROPHILS % (AUTO) 79.2 % (45.0-75.0); PLATELET COUNT 207 K/UL (150-450); RED BLOOD COUNT 3.25 M/UL (4.70-6.10); RED CELL DISTRIBUTION WIDTH 16.2 % (11.6-14.8); WHITE BLOOD COUNT 14.1 K/UL (4.8-10.8)
[2018-11-04 00:32] LABS: ANION GAP 12 mmol/L (5-15); BLOOD UREA NITROGEN 108 mg/dL (7-18); CALCIUM 7.8 MG/DL (8.5-10.1); CARBON DIOXIDE 30 MMOL/L (21-32); CHLORIDE 116 MMOL/L (98-107); CREATININE 2.6 MG/DL (0.55-1.30); POTASSIUM 4.2 MMOL/L (3.5-5.1); SODIUM 158 MMOL/L (136-145)
[2018-11-04 00:46] LABS: ALANINE AMINOTRANSFERASE < 6 U/L (12-78); ALBUMIN 2.3 G/DL (3.4-5.0); ALKALINE PHOSPHATASE 79 U/L (46-116); ASPARTATE AMINO TRANSFERASE 34 U/L (15-37); BILIRUBIN,TOTAL 0.6 MG/DL (0.2-1.0); CKMB < 0.5 NG/ML (0.0-3.6); CREATINE KINASE 62 U/L (26-308)
[2018-11-04 01:53] LABS: APPEARANCE,URINE CLOUDY; BILIRUBIN, URINE NEGATIVE (NEGATIVE); COLOR,URINE PALE YELLOW; GLUCOSE, URINE (UA) NEGATIVE (NEGATIVE); KETONES,URINE NEGATIVE (NEGATIVE); LEUKOCYTE ESTERASE ,URINE 3+ (NEGATIVE); NITRITE,URINE NEGATIVE (NEGATIVE); PH,URINE 8 (4.5-8.0); PROTEIN,URINE 3+ (NEGATIVE); UROBILINOGEN,URINE 1 MG/DL (0.0-1.0)
[2018-11-04 02:24] VITALS: BP 111/47
[2018-11-04] MEDS ORDERED: Piperacillin/Tazobactam 3.375 GM in D5W 110 ML IVPB ONE (02:45)
[2018-11-04 03:30] VITALS: BP 118/61
[2018-11-04 08:00] VITALS: BP 135/57
[2018-11-04] MEDS: D5W w/KCl 20mEq 1,000 ML IV SCH (08:51)
[2018-11-04] MEDS: Piperacillin/Tazobactam 3.375 GM in D5W 110 ML IVPB SCH ×2 (08:52→21:25)
[2018-11-04] MEDS: Heparin 5000 units/ml inj SUBQ SCH ×2 (08:53→21:27)
[2018-11-04 12:00] VITALS: BP 121/56
--- NOTE | 2018-11-04 12:24 | Diagnostic Imaging Report ---
Indication: Dyspnea Comparison: 09/05/2018 A single view chest radiograph was obtained. Findings: Interstitial opacities predominating at the lung bases likely chronic. There may be an element of mild interstitial edema. Please correlate clinically. The heart is borderline enlarged. Bones are osteopenic. Aorta is moderately calcified. There are syndesmophytes throughout the thoracic spine. IMPRESSION: Basilar lung fibrosis. Interstitial prominence throughout the lungs could be due to mild interstitial edema. Correlate clinically.
[2018-11-04] MEDS: NovoLOG Insulin Flexpen SUBQ SCH ×3 (13:20→23:59)
[2018-11-04 16:00] VITALS: BP 120/54
--- NOTE | 2018-11-04 17:45 | History and Physical Report ---
DATE OF ADMISSION: 11/04/2018 CHIEF COMPLAINT: Abnormal lab results. HISTORY OF PRESENT ILLNESS: This is an 82-year-old [place] male from [facility]. I was called about a BUN level more than 100 and instructed the patient to be sent to this hospital's emergency department. The patient has a history of multiple admissions with the same problem. The patient is admitted with the extreme volume depletion. PAST MEDICAL HISTORY: 1. Multiple admissions with a volume depletion, acute renal failure. 2. Type 2 diabetes mellitus. 3. Recurrent urosepsis, in the last admission, which was a few weeks ago grew out ESBL E. coli and Proteus. 4. Organic brain syndrome. 5. Recurrent gastroesophagitis. HOME MEDICATIONS: Tylenol p.r.n., sodium docusate, subcutaneous heparin, Levemir, Prevacid, senna, Carafate, and Kayexalate. ALLERGIES: No known allergies. FAMILY HISTORY: Unable to obtain due to mental status. SOCIAL HISTORY: Unable to obtain due to mental status. REVIEW OF SYSTEMS: Unable to obtain due to mental status. PHYSICAL EXAMINATION: GENERAL: This is an elderly [place] male who is in no acute distress. VITAL SIGNS: Blood pressure 121/56; mean arterial pressure is 77; pulse is 85, regular; respirations 20, and temperature 98.7. HEENT: The head is normocephalic and atraumatic. Pupils are equal and reactive to light condition consensually. NECK: Supple. Trachea midline. There was no lymphadenopathy or thyromegaly. LUNGS: Bilateral rhonchi. HEART: Regular rate and rhythm without rubs, murmurs, or gallops. ABDOMEN: Soft and nontender. Bowel sounds were active. He has a G-tube. EXTREMITIES: No clubbing, cyanosis, or edema. He has deformed fingers. NEUROLOGICAL: He is confused. There were no gross focal findings. LABORATORY AND ANCILLARY DATA: [place] [address] and hematocrit 31. Chemistry, sodium 158, potassium 4.2, BUN 108, creatinine 2.6, and albumin 2.3. Urinalysis, 3+ protein, 10 to 15 RBCs, and too numerous to count white blood cells. Chest x-ray, interstitial and prominence. ASSESSMENT: 1. Recurrent urosepsis, suspect recurrent ESBL urosepsis. 2. Extreme volume depletion with hyponatremia. 3. Multiple admissions with a volume depletion, acute renal failure. 4. Type 2 diabetes mellitus. 5. Recurrent urosepsis, in the last admission, which was a few weeks ago grew out ESBL E. coli and Proteus. 6. Organic brain syndrome. 7. Recurrent gastroesophagitis. PLAN: 1. Keep NPO. 2. Start the free water rehydration. 3. Repeat the IV antibiotics with Zosyn. Ann López M.D. DR: FIFI JOB#: [id number] CC:
--- NOTE | 2018-11-04 17:58 | Cardiology Report ---
APPROVED REPORT EKG Measurement Heart [id number] Normal sinus rhythm Incomplete right bundle branch block Prolonged QT Abnormal ECG
[2018-11-04 20:00] VITALS: BP 110/62
[2018-11-05] VITALS: BP 127/60
[2018-11-05] MEDS: D5W w/KCl 20mEq 1,000 ML IV SCH ×2 (02:04→12:06)
[2018-11-05 04:00] VITALS: BP 130/78
[2018-11-05] MEDS: NovoLOG Insulin Flexpen SUBQ SCH ×4 (05:58→22:10)
[2018-11-05 08:00] VITALS: BP 132/61
[2018-11-05 08:28] LABS: HEMATOCRIT 25.4 % (42.0-52.0); HEMOGLOBIN 7.9 G/DL (14.2-18.0); MEAN CORPUSCULAR VOLUME 95 FL (80-99); PLATELET COUNT 170 K/UL (150-450); RED BLOOD COUNT 2.68 M/UL (4.70-6.10); RED CELL DISTRIBUTION WIDTH 16.1 % (11.6-14.8); WHITE BLOOD COUNT 11.7 K/UL (4.8-10.8)
[2018-11-05] MEDS: Piperacillin/Tazobactam 3.375 GM in D5W 110 ML IVPB SCH ×2 (08:29→22:08)
[2018-11-05] MEDS: Heparin 5000 units/ml inj SUBQ SCH ×2 (08:30→22:10)
[2018-11-05 08:38] LABS: ANION GAP 8 mmol/L (5-15); BLOOD UREA NITROGEN 63 mg/dL (7-18); CALCIUM 8.6 MG/DL (8.5-10.1); CARBON DIOXIDE 29 MMOL/L (21-32); CHLORIDE 120 MMOL/L (98-107); POTASSIUM 4.2 MMOL/L (3.5-5.1); SODIUM 157 MMOL/L (136-145)
[2018-11-05 12:00] VITALS: BP 121/57
[2018-11-05 16:00] VITALS: BP 140/61
--- NOTE | 2018-11-05 16:43 | General Progress Note ---
Assessment/Plan Assessment/Plan Urosepsis _ IV Abx Pre Renal Azotemia + Hypernatremia ---- Free Water Subjective Allergies: Coded Allergies: No Known Allergies (Verified , 12/28/06) Subjective Nonverbal Objective Last 24 Hour Vital Signs Date Time Temp Pulse Resp B/P (MAP) Pulse Ox O2 Delivery O2 Flow Rate FiO2 11/05/18 12:00 97.7 80 18 121/57 (78) 95 11/05/18 12:00 79 11/05/18 09:00 Room Air 11/05/18 08:00 77 11/05/18 08:00 97.5 78 18 132/61 (84) 100 11/05/18 04:00 80 11/05/18 04:00 97.8 72 16 130/78 (95) 92 11/05/18 00:00 97.6 85 16 127/60 (82) 99 11/05/18 00:00 80 11/04/18 21:00 Room Air 11/04/18 20:00 97.3 83 16 110/62 (78) 100 11/04/18 20:00 81 Intake and Output 11/04/18 11/05/18 19:00 07:00 Intake Total 400 ml 1281.25 ml Output Total 500 ml Balance 400 ml 781.25 ml Intake Oral 400 ml IV Total 1281.25 ml Output Urine Total 500 ml # Bowel Movements 1 2 Laboratory Tests 11/05/18 07:07: White Blood Count 11.7H, Red Blood Count 2.68L, Hemoglobin 7.9L, Hematocrit 25.4L, Mean Corpuscular Volume 95, Mean Corpuscular Hemoglobin 29.7, Mean Corpuscular Hemoglobin Concent 31.2L, Red Cell Distribution Width 16.1H, Platelet Count 170, Mean Platelet Volume 8.1, Neutrophils (%) (Auto) , Lymphocytes (%) (Auto) , Monocytes (%) (Auto) , Eosinophils (%) (Auto) , Basophils (%) (Auto) , Differential Total Cells Counted 100, Neutrophils % ( Manual) 72, Lymphocytes % (Manual) 17L, Monocytes % (Manual) 3, Eosinophils % ( Manual) 2, Basophils % (Manual) 0, Myelocytes % 1H, Band Neutrophils 5, Platelet Estimate Adequate, Platelet Morphology Normal, Hypochromasia 1+, Anisocytosis 1+, Sodium Level 157H, Potassium Level 4.2, Chloride Level 120H, Carbon Dioxide Level 29, Anion Gap 8, Blood Urea Nitrogen 63H, Creatinine 2.0H, Estimat Glomerular Filtration Rate , Glucose Level 148#H, Hemoglobin A1c 8.5H, Calcium Level 8.6, Magnesium Level 2.3 Height (Feet): 5 Height (Inches): 10.00 Weight (Pounds): 111 Objective Cachectic. CV RR Lungs CTA Abd SNT. BS + E No CCE Ann López MD Nov 05, 2018 16:43
--- NOTE | 2018-11-05 18:57 | Infectious Diseases Prog Note ---
Assessment/Plan Assessment/Plan Full consult dictated: A) 1) sepsis, uti, ? pna 2) leukocytosis 3) pmh noted 4) allergies - nkda P) 1) zosyn 2) check cultures, labs and chest x-ray 3) thank you Subjective Allergies: Coded Allergies: No Known Allergies (Verified , 12/28/06) Objective Vital Signs Last 24 Hour Vital Signs Date Time Temp Pulse Resp B/P (MAP) Pulse Ox O2 Delivery O2 Flow Rate FiO2 11/05/18 12:00 97.7 80 18 121/57 (78) 95 11/05/18 12:00 79 11/05/18 09:00 Room Air 11/05/18 08:00 77 11/05/18 08:00 97.5 78 18 132/61 (84) 100 11/05/18 04:00 80 11/05/18 04:00 97.8 72 16 130/78 (95) 92 11/05/18 00:00 97.6 85 16 127/60 (82) 99 11/05/18 00:00 80 11/04/18 21:00 Room Air 11/04/18 20:00 97.3 83 16 110/62 (78) 100 11/04/18 20:00 81 Height (Feet): 5 Height (Inches): 10.00 Weight (Pounds): 111 Microbiology Date/Time Source Procedure Growth Status 11/04/18 00:07 Blood Blood Culture - Preliminary NO GROWTH AFTER 24 HOURS Resulted 11/04/18 00:00 Blood Blood Culture - Preliminary NO GROWTH AFTER 24 HOURS Resulted 11/04/18 01:40 Nasal Nares MRSA Culture - Final Staphylococcus Aureus - Mrsa Complete 11/04/18 00:10 Nasal Nares Influenza Types A,B Antigen (HENNA) - Final Complete 11/04/18 01:30 Urine,Clean Catch Urine Culture - Preliminary YEAST Resulted 11/04/18 01:40 Rectum - Preliminary Resulted 11/04/18 01:40 Rectum Received Laboratory Tests Test 11/05/18 07:07 White Blood Count 11.7 K/UL (4.8-10.8) H Red Blood Count 2.68 M/UL (4.70-6.10) L Hemoglobin 7.9 G/DL (14.2-18.0) L Hematocrit 25.4 % (42.0-52.0) L Mean Corpuscular Volume 95 FL (80-99) Mean Corpuscular Hemoglobin 29.7 PG (27.0-31.0) Mean Corpuscular Hemoglobin Concent 31.2 G/DL (32.0-36.0) L Red Cell Distribution Width 16.1 % (11.6-14.8) H Platelet Count 170 K/UL (150-450) Mean Platelet Volume 8.1 FL (6.5-10.1) Neutrophils (%) (Auto) % (45.0-75.0) Lymphocytes (%) (Auto) % (20.0-45.0) Monocytes (%) (Auto) % (1.0-10.0) Eosinophils (%) (Auto) % (0.0-3.0) Basophils (%) (Auto) % (0.0-2.0) Differential Total Cells Counted 100 Neutrophils % (Manual) 72 % (45-75) Lymphocytes % (Manual) 17 % (20-45) L Monocytes % (Manual) 3 % (1-10) Eosinophils % (Manual) 2 % (0-3) Basophils % (Manual) 0 % (0-2) Myelocytes % 1 % (0-0) H Band Neutrophils 5 % (0-8) Platelet Estimate Adequate Platelet Morphology Normal Hypochromasia 1+ Anisocytosis 1+ Sodium Level 157 MMOL/L (136-145) H Potassium Level 4.2 MMOL/L (3.5-5.1) Chloride Level 120 MMOL/L (98-107) H Carbon Dioxide Level 29 MMOL/L (21-32) Anion Gap 8 mmol/L (5-15) Blood Urea Nitrogen 63 mg/dL (7-18) H Creatinine 2.0 MG/DL (0.55-1.30) H Estimat Glomerular Filtration Rate mL/min (>60) Glucose Level 148 MG/DL (74-106) #H Hemoglobin A1c 8.5 % (4.3-6.0) H Calcium Level 8.6 MG/DL (8.5-10.1) Magnesium Level 2.3 MG/DL (1.8-2.4) Current Medications Medications (Trade) Dose Ordered Sig/Jarrod Route PRN Reason Start Time Stop Time Status Last Admin Dose Admin Dextrose (Dextrose 50%) 25 ml Q30M PRN IV Hypoglycemia 11/04/18 07:30 12/04/18 07:29 Dextrose (Dextrose 50%) 50 ml Q30M PRN IV Hypoglycemia 11/04/18 07:30 12/04/18 07:29 Dextrose/ Electrolytes 1,000 ml @ 75 mls/hr [id number] IV 11/04/18 08:00 12/04/18 07:59 11/05/18 12:06 Heparin Sodium (Porcine) (Heparin 5000 units/ml) 5,000 units EVERY 12 HOURS SUBQ 11/04/18 09:00 12/04/18 08:59 11/05/18 08:30 Insulin Aspart (NovoLOG) Q6HR SUBQ 11/04/18 12:00 12/04/18 11:59 11/05/18 18:08 Piperacillin Sod/ Tazobactam Sod 3.375 gm/Dextrose 110 ml @ 27.5 mls/hr Q12HR IVPB 11/04/18 09:00 11/11/18 08:59 11/05/18 08:29 Wanda Sams MD Nov 05, 2018 18:57
[2018-11-05 20:00] VITALS: BP 122/57
--- NOTE | 2018-11-05 21:30 | Consultation ---
DATE OF CONSULTATION: 11/05/2018 INFECTIOUS DISEASES CONSULTATION NOTE: CANCELED DICTATION. Wanda Sams M.D. DR: DAVINA JOB#: [id number] CC:
[2018-11-05] MEDS: Fluconazole 100mg tab ORAL SCH (22:08)
--- NOTE | 2018-11-05 22:15 | Consultation ---
DATE OF CONSULTATION: 11/05/2018 INFECTIOUS DISEASES CONSULTATION: CONSULTING PHYSICIAN: Wanda Sams M.D. ATTENDING PHYSICIAN: Ann López M.D. REFERRING PHYSICIAN: Ann López M.D. REASON FOR CONSULTATION: Sepsis, UTI, possible pneumonia, leukocytosis. CHIEF COMPLAINT: The patient's chief complaint coming into the hospital is pneumonia, sepsis. HISTORY OF PRESENT ILLNESS: This is an 82-year-old male who has history of multiple medical problems including recurrent urinary tract infection with sepsis. The patient comes in with altered mental status and elevated white count, likely septic. The patient has a significantly positive urinalysis likely has UTI with sepsis. It is questionable if the patient has pneumonia. Chest x-ray shows no obvious consolidations, but could have interstitial changes. Infectious Diseases consultation requested for antibiotic management. Case was discussed with Dr. López. The patient was placed on Zosyn pending workup for sepsis UTI, possible pneumonia, leukocytosis. REVIEW OF SYSTEMS: GENERAL: The patient has a condom cath. No central line. He has generalized fatigue, weakness, opens eyes, but not a very good historian, mostly nonverbal. No fevers. HEAD AND NECK: Could not really assess. No obvious head pain or neck pain. CARDIAC: No chest pain or pressors. GASTROINTESTINAL: No nausea, vomiting, diarrhea. GENITOURINARY: He has a condom cath. PULMONARY: Mild cough, congestion. No significant secretions. SKIN: No rash. EXTREMITIES: No extremity pain mentioned. NEUROLOGIC: No seizures. PAST MEDICAL HISTORY: Includes the following. The patient has a past medical history of recurrent urinary tract infections, sepsis, ESBL organisms in the past. History of Proteus UTI in the past. Also history of diabetes, history of organic brain syndrome, history of recurrent esophagitis, history of type 2 diabetes, history of aspiration risk, history of hypertension in addition to diabetes, history of chronic kidney disease, history of renal failure, altered level consciousness. ALLERGIES: No known drug allergies. No antibiotic allergies. SOCIAL HISTORY: Per the records is negative for smoking, alcohol, or drug abuse. FAMILY HISTORY: Per the records is noncontributory. No mention of exposure to tuberculosis or cancer. MEDICATIONS: Upon reviewing the MAR, he is on following medications: He is on insulin, heparin, Zosyn. Outside medications noted and reconciliated. He was on acetaminophen, docusate, heparin, insulin, Nexium, magnesium hydroxide, sucralfate, and Dania-michael (sennosides). PHYSICAL EXAMINATION: VITAL SIGNS: Temperature 97.7, pulse rate is 80, respiratory rate 18, blood pressure 121/57, saturation 95%. Heart rate on admission was as high as 98 and respiratory rate on admission was 22. GENERAL: Actually opens his eyes. Mostly nonverbal. HEAD AND NECK: Oral exam, no thrush. Eye exam, no icterus. Neck is supple. No JVD. Normocephalic. HEART: Regular. No obvious gallop or murmur. No friction rub. ABDOMEN: Soft. Positive bowel sounds. Nontender. LUNGS: Clear bilaterally. Positive rales. SKIN: No rash or dermatitis. MUSCULOSKELETAL: No effusion or contractures. Legs are without cellulitis. PERIPHERAL VASCULAR: No gangrene. GENITOURINARY: He has a condom catheter. Urine is cloudy. LINES: Line sites without phlebitis. NEUROLOGIC: Generalized weakness, responsive. Opens his eyes. LABORATORY AND DIAGNOSTIC DATA: Sodium 157, creatinine 2.0. White count on admission 14.1, current white count 11.7, hemoglobin 7.9. Urinalysis 3+ leukocyte esterase, too many to count white blood cells, many bacteria. Cultures, MRSA screen is positive. Blood cultures negative to date. Urine culture with yeast. Chest x-ray showed basilar lung fibrosis and interstitial prominence. Followup chest x-ray has been ordered. ASSESSMENT AND PLAN: 1. The patient likely has sepsis SIRS criteria likely UTI with sepsis. He has fungal UTI versus ESBL organisms. The patient also has possible pneumonia. The patient at risk for community-acquired and aspiration pneumonia. Continue Zosyn. I will add Diflucan to cover UTI with sepsis and leukocytosis. Check followup UA, C and S, chest x-ray, laboratories. Continue Zosyn, Diflucan for sepsis UTI and possible pneumonia for now. 2. The patient has acute kidney injury, elevated creatinine, likely chronic kidney disease. 3. Diabetes type 2. 4. Hypertension. 5. Blood sugar, blood pressure treatment per primary. 6. History of ESBL UTI. 7. Organic brain syndrome. 8. Esophagitis. 9. Anemia. 10. Past medical history noted. 11. No known drug allergies. 12. Social history negative. 13. Family history noncontributory. 14. MAR was noted. 15. Case discussed with RN. 16. Continue treatment per primary consultants. 17. Skin care protocol. 18. Wounds were noted. There are no acutely infected wounds. 19. Orders were noted and entered. 20. Notes and records were reviewed. Wanda Sams M.D. DR: PACO JOB#: [id number] CC:
[2018-11-06] VITALS: BP 118/59
[2018-11-06] MEDS: D5W w/KCl 20mEq 1,000 ML IV SCH ×2 (01:02→12:45)
[2018-11-06 03:46] LABS: APPEARANCE,URINE CLEAR; BILIRUBIN, URINE NEGATIVE (NEGATIVE); COLOR,URINE PALE YELLOW; GLUCOSE, URINE (UA) NEGATIVE (NEGATIVE); KETONES,URINE NEGATIVE (NEGATIVE); LEUKOCYTE ESTERASE ,URINE 1+ (NEGATIVE); NITRITE,URINE NEGATIVE (NEGATIVE); PH,URINE 7 (4.5-8.0); PROTEIN,URINE 3+ (NEGATIVE); UROBILINOGEN,URINE NORMAL MG/DL (0.0-1.0)
[2018-11-06 04:00] VITALS: BP 126/67
[2018-11-06] MEDS: NovoLOG Insulin Flexpen SUBQ SCH ×3 (05:57→18:12)
[2018-11-06 06:41] LABS: BASOPHILS % (AUTO) 0.8 % (0.0-2.0); EOSINOPHILS % (AUTO) 3.2 % (0.0-3.0); HEMATOCRIT 26.4 % (42.0-52.0); HEMOGLOBIN 8.2 G/DL (14.2-18.0); LYMPHOCYTES % (AUTO) 12.8 % (20.0-45.0); MEAN CORPUSCULAR VOLUME 95 FL (80-99); MONOCYTES % (AUTO) 4.7 % (1.0-10.0); NEUTROPHILS % (AUTO) 78.6 % (45.0-75.0); PLATELET COUNT 134 K/UL (150-450); RED BLOOD COUNT 2.77 M/UL (4.70-6.10); RED CELL DISTRIBUTION WIDTH 15.8 % (11.6-14.8); WHITE BLOOD COUNT 10.2 K/UL (4.8-10.8)
[2018-11-06 07:12] LABS: ALANINE AMINOTRANSFERASE 13 U/L (12-78); ALBUMIN/GLOBULIN RATIO 0.4 (1.0-2.7); ALKALINE PHOSPHATASE 56 U/L (46-116); ANION GAP 9 mmol/L (5-15); ASPARTATE AMINO TRANSFERASE 18 U/L (15-37); BILIRUBIN,TOTAL 0.3 MG/DL (0.2-1.0); BLOOD UREA NITROGEN 47 mg/dL (7-18); CALCIUM 8.9 MG/DL (8.5-10.1); CARBON DIOXIDE 26 MMOL/L (21-32); CHLORIDE 116 MMOL/L (98-107); CREATININE 1.9 MG/DL (0.55-1.30); POTASSIUM 4.7 MMOL/L (3.5-5.1); SODIUM 151 MMOL/L (136-145)
[2018-11-06 08:00] VITALS: BP 124/57
--- NOTE | 2018-11-06 08:38 | Physician Query ---
--------- THIS DOCUMENT IS A PERMANENT PART OF THE MEDICAL RECORD --------- PLEASE COMPLETE THE FORM BEFORE SIGNING Please click Edit and put X on appropriate option Date: 11/06/2018 Mobile Ui Designer/CDS's Name: Muriel ashraf Dear Dr. López, Consult and progress notes from Dr. Sams includes "Possible Pneumonia", "Pna". Can you please clarify the status of "Pneumonia"? [ X ] Rule in [ ] Rule out [ ] Other: [ ] Clinically undetermined Present on admission (Required) [ ] Yes [ ] No [ ] Clinically Undeterminable __ Physician signature Date MTDD
[2018-11-06] MEDS: Heparin 5000 units/ml inj SUBQ SCH ×2 (09:00→21:46)
[2018-11-06] MEDS: Fluconazole 100mg tab ORAL SCH (10:02)
[2018-11-06] MEDS: Piperacillin/Tazobactam 3.375 GM in D5W 110 ML IVPB SCH ×2 (10:03→21:45)
--- NOTE | 2018-11-06 11:22 | Diagnostic Imaging Report ---
Indication: Dyspnea Comparison: 11/03/2018 A single view chest radiograph was obtained. Findings: Reticular densities are demonstrated at the left lung base and to some extent at the right lung base unchanged and chronic in nature. Borderline cardiomegaly demonstrated. Aorta is calcified. Bones are osteopenic. IMPRESSION: No change since the last exam
[2018-11-06 12:00] VITALS: BP 124/61
--- NOTE | 2018-11-06 14:46 | General Progress Note ---
Assessment/Plan Assessment/Plan Urosepsis _ IV Abx Pre Renal Azotemia + Hypernatremia ---- Free Water BC GPC. DW ID. Liz Added. Worsening anemia due to hemodilution. Holding TF until Na corrected! Subjective Allergies: Coded Allergies: No Known Allergies (Verified , 12/28/06) Subjective Nonverbal Objective Last 24 Hour Vital Signs Date Time Temp Pulse Resp B/P (MAP) Pulse Ox O2 Delivery O2 Flow Rate FiO2 11/06/18 12:00 98.1 79 18 124/61 (82) 98 11/06/18 12:00 67 11/06/18 09:00 Room Air 11/06/18 08:00 97.9 75 18 124/57 (79) 100 11/06/18 08:00 75 11/06/18 04:00 97.6 86 18 126/67 (86) 100 11/06/18 04:00 70 11/06/18 00:00 97.6 73 18 118/59 (78) 100 11/06/18 00:00 70 11/05/18 21:00 Room Air 11/05/18 20:00 72 11/05/18 20:00 97.5 72 18 122/57 (78) 100 11/05/18 16:00 71 11/05/18 16:00 97.7 75 20 140/61 (87) 100 Intake and Output 11/05/18 11/06/18 19:00 07:00 Intake Total 1115.0 ml Output Total 300 ml 400 ml Balance -300 ml 715.0 ml IV Total 1115.0 ml Output Urine Total 300 ml 400 ml # Voids 2 Laboratory Tests 11/06/18 03:00: Urine Color Pale yellow, Urine Appearance Clear, Urine pH 7, Urine Specific [place] 1.010, Urine Protein 3+H, Urine Glucose (UA) Negative, Urine Ketones Negative, Urine Blood 1+H, Urine Nitrite Negative, Urine Bilirubin Negative, Urine Urobilinogen Normal, Urine Leukocyte Esterase 1+H, Urine RBC 0, Urine WBC 2-4, Urine Squamous Epithelial Cells None, Urine Bacteria None 11/06/18 05:20: White Blood Count 10.2, Red Blood Count 2.77L, Hemoglobin 8.2L, Hematocrit 26.4L , Mean Corpuscular Volume 95, Mean Corpuscular Hemoglobin 29.8, Mean Corpuscular Hemoglobin Concent 31.2L, Red Cell Distribution Width 15.8H, Platelet Count 134L, Mean Platelet Volume 8.1, Neutrophils (%) (Auto) 78.6H, Lymphocytes (%) (Auto) 12.8L, Monocytes (%) (Auto) 4.7, Eosinophils (%) (Auto) 3.2H, Basophils (%) (Auto) 0.8, Sodium Level 151H, Potassium Level 4.7, Chloride Level 116H, Carbon Dioxide Level 26, Anion Gap 9, Blood Urea Nitrogen 47H, Creatinine 1.9H, Estimat Glomerular Filtration Rate , Glucose Level 150H, Calcium Level 8.9, Total Bilirubin 0.3, Aspartate Amino Transf (AST/SGOT) 18, Alanine Aminotransferase (ALT/SGPT) 13, Alkaline Phosphatase 56, Total Protein 7.7, Albumin 2.0L, Globulin 5.7, Albumin/Globulin Ratio 0.4L Height (Feet): 5 Height (Inches): 10.00 Weight (Pounds): 111 Objective Cachectic. CV RR Lungs CTA Abd SNT. BS + E No CCE Ann López MD Nov 06, 2018 14:46
[2018-11-06] MEDS ORDERED: Vancomycin 1gm/D5W 275ml IVPB SCH ×2 (15:00)
[2018-11-06 16:00] VITALS: BP 121/59
[2018-11-06 20:00] VITALS: BP 121/55
[2018-11-07] VITALS: BP 137/65
[2018-11-07] MEDS: NovoLOG Insulin Flexpen SUBQ SCH ×5 (00:07→23:16)
[2018-11-07] MEDS: D5W w/KCl 20mEq 1,000 ML IV SCH ×2 (03:05→16:26)
[2018-11-07 04:00] VITALS: BP 134/62
[2018-11-07 08:00] VITALS: BP 137/63
[2018-11-07] MEDS: Piperacillin/Tazobactam 3.375 GM in D5W 110 ML IVPB SCH ×2 (08:40→20:36)
[2018-11-07] MEDS: Fluconazole 100mg tab ORAL SCH (08:40)
[2018-11-07] MEDS: Heparin 5000 units/ml inj SUBQ SCH ×2 (08:42→20:37)
--- NOTE | 2018-11-07 11:22 | General Progress Note ---
Assessment/Plan Assessment/Plan Urosepsis _ IV Abx Pre Renal Azotemia + Hypernatremia ---- Free Water BC GPC. DW ID. Liz Added. Worsening anemia due to hemodilution. Holding TF until Na corrected! Subjective Allergies: Coded Allergies: No Known Allergies (Verified , 12/28/06) Subjective Nonverbal Objective Last 24 Hour Vital Signs Date Time Temp Pulse Resp B/P (MAP) Pulse Ox O2 Delivery O2 Flow Rate FiO2 11/07/18 09:00 Room Air 11/07/18 08:00 97.4 73 18 137/63 (87) 100 11/07/18 04:00 74 11/07/18 04:00 98.5 80 19 134/62 (86) 97 11/07/18 00:00 98.3 83 20 137/65 (89) 97 11/06/18 21:00 Room Air 11/06/18 20:00 77 11/06/18 20:00 97.4 77 19 121/55 (77) 93 11/06/18 16:00 97.6 81 19 121/59 (79) 98 11/06/18 16:00 69 11/06/18 12:00 98.1 79 18 124/61 (82) 98 11/06/18 12:00 67 Intake and Output 11/06/18 11/07/18 19:00 07:00 Intake Total 600 ml 1212.50 ml Output Total 300 ml Balance 600 ml 912.50 ml IV Total 1212.50 ml Other 600 ml Output Urine Total 300 ml # Bowel Movements 1 Laboratory Tests 11/07/18 06:08: Random Vancomycin Level 14.4 Height (Feet): 5 Height (Inches): 10.00 Weight (Pounds): 111 Objective Cachectic. CV RR Lungs CTA Abd SNT. BS + E No CCE Ann López MD Nov 07, 2018 11:22
[2018-11-07 12:00] VITALS: BP 138/61
[2018-11-07] MEDS ORDERED: Vancomycin 750mg/NS 275ml IVPB ONE ×2 (13:00)
[2018-11-07 16:00] VITALS: BP 138/64
--- NOTE | 2018-11-07 17:45 | Infectious Diseases Prog Note ---
Assessment/Plan Assessment/Plan ASSESSMENT AND PLAN: 1. sepsis, possible gram + bacteremia, uti, hx esbl ut, akiko/fungal uti, leukocytosis, ? pna - zosyn, vancomycin and diflucan - day # 3 abx - check final bc, f/u ua, surveillance blood cultures, labs and chest x-ray 2. The patient has acute kidney injury, elevated creatinine, likely chronic kidney disease. 3. Diabetes type 2. 4. Hypertension. 5. Blood sugar, blood pressure treatment per primary. 6. History of ESBL UTI. 7. Organic brain syndrome. 8. Esophagitis. 9. Anemia. 10. Past medical history noted. 11. No known drug allergies. 12. Social history negative. 13. Family history noncontributory. 14. MAR was noted. 15. Case discussed with RN. 16. Continue treatment per primary consultants. 17. Skin care protocol. 18. Wounds were noted. There are no acutely infected wounds. 19. Orders were noted and entered. 20. Notes and records were reviewed. Subjective Constitutional: Reports: fatigue; Denies: fever HEENT: Denies: congestion Respiratory: Denies: shortness of breath Cardiovascular: Denies: chest pain Gastrointestinal/Abdominal: Denies: nausea, vomiting, diarrhea Genitourinary: Reports: other - + bowden Neurologic: Denies: headache Psychiatric: Denies: depression Skin: Denies: rash Hematologic: Denies: bleeding Musculoskeletal: Denies: pain Allergies: Coded Allergies: No Known Allergies (Verified , 12/28/06) Objective Vital Signs Last 24 Hour Vital Signs Date Time Temp Pulse Resp B/P (MAP) Pulse Ox O2 Delivery O2 Flow Rate FiO2 11/07/18 16:00 98.8 82 18 138/64 (88) 100 11/07/18 12:00 72 11/07/18 12:00 97.5 78 18 138/61 (86) 100 11/07/18 09:00 Room Air 11/07/18 08:00 97.4 73 18 137/63 (87) 100 11/07/18 08:00 75 11/07/18 04:00 74 11/07/18 04:00 98.5 80 19 134/62 (86) 97 11/07/18 00:00 98.3 83 20 137/65 (89) 97 11/06/18 21:00 Room Air 11/06/18 20:00 77 11/06/18 20:00 97.4 77 19 121/55 (77) 93 Height (Feet): 5 Height (Inches): 10.00 Weight (Pounds): 111 General Appearance: no acute distress HEENT: normocephalic, atraumatic, anicteric, mucous membranes moist Respiratory/Chest: lungs clear, normal breath sounds, no respiratory distress, no accessory muscle use Cardiovascular: normal rate, regular rhythm, no gallop/murmur Abdomen: normal bowel sounds, soft, non tender, no organomegaly, non distended Genitourinary: other - + bowden - urine clear Extremities: no cyanosis Skin: no rash 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 Findings: Reticular densities are demonstrated at the left lung base and to some extent at the right lung base unchanged and chronic in nature. Borderline cardiomegaly demonstrated. Aorta is calcified. Bones are osteopenic. IMPRESSION: No change since the last exam Microbiology Date/Time Source Procedure Growth Status 11/04/18 00:07 Blood Blood Culture - Preliminary Resulted 11/04/18 01:40 Nasal Nares MRSA Culture - Final Staphylococcus Aureus - Mrsa Complete 11/04/18 01:30 Urine,Clean Catch Urine Culture - Final Akiko Albicans Complete 11/04/18 01:40 Rectum - Final NO CARBAPENEM-RESISTANT ENTEROBACTERI... Complete Labs Test 11/05/18 07:07 11/06/18 03:00 11/06/18 05:20 11/07/18 06:08 White Blood Count 11.7 K/UL (4.8-10.8) 10.2 K/UL (4.8-10.8) Red Blood Count 2.68 M/UL (4.70-6.10) 2.77 M/UL (4.70-6.10) Hemoglobin 7.9 G/DL (14.2-18.0) 8.2 G/DL (14.2-18.0) Hematocrit 25.4 % (42.0-52.0) 26.4 % (42.0-52.0) Mean Corpuscular Volume 95 FL (80-99) 95 FL (80-99) Mean Corpuscular Hemoglobin 29.7 PG (27.0-31.0) 29.8 PG (27.0-31.0) Mean Corpuscular Hemoglobin Concent 31.2 G/DL (32.0-36.0) 31.2 G/DL (32.0-36.0) Red Cell Distribution Width 16.1 % (11.6-14.8) 15.8 % (11.6-14.8) Platelet Count 170 K/UL (150-450) 134 K/UL (150-450) Mean Platelet Volume 8.1 FL (6.5-10.1) 8.1 FL (6.5-10.1) Neutrophils (%) (Auto) % (45.0-75.0) 78.6 % (45.0-75.0) Lymphocytes (%) (Auto) % (20.0-45.0) 12.8 % (20.0-45.0) Monocytes (%) (Auto) % (1.0-10.0) 4.7 % (1.0-10.0) Eosinophils (%) (Auto) % (0.0-3.0) 3.2 % (0.0-3.0) Basophils (%) (Auto) % (0.0-2.0) 0.8 % (0.0-2.0) Differential Total Cells Counted 100 Neutrophils % (Manual) 72 % (45-75) Lymphocytes % (Manual) 17 % (20-45) Monocytes % (Manual) 3 % (1-10) Eosinophils % (Manual) 2 % (0-3) Basophils % (Manual) 0 % (0-2) Myelocytes % 1 % (0-0) Band Neutrophils 5 % (0-8) Platelet Estimate Adequate Platelet Morphology Normal Hypochromasia 1+ Anisocytosis 1+ Sodium Level 157 MMOL/L (136-145) 151 MMOL/L (136-145) Potassium Level 4.2 MMOL/L (3.5-5.1) 4.7 MMOL/L (3.5-5.1) Chloride Level 120 MMOL/L (98-107) 116 MMOL/L (98-107) Carbon Dioxide Level 29 MMOL/L (21-32) 26 MMOL/L (21-32) Anion Gap 8 mmol/L (5-15) 9 mmol/L (5-15) Blood Urea Nitrogen 63 mg/dL (7-18) 47 mg/dL (7-18) Creatinine 2.0 MG/DL (0.55-1.30) 1.9 MG/DL (0.55-1.30) Estimat Glomerular Filtration Rate mL/min (>60) mL/min (>60) Glucose Level 148 MG/DL (74-106) 150 MG/DL (74-106) Hemoglobin A1c 8.5 % (4.3-6.0) Calcium Level 8.6 MG/DL (8.5-10.1) 8.9 MG/DL (8.5-10.1) Magnesium Level 2.3 MG/DL (1.8-2.4) Urine Color Pale yellow Urine Appearance Clear Urine pH 7 (4.5-8.0) Urine Specific Goodrich 1.010 (1.005-1.035) Urine Protein 3+ (NEGATIVE) Urine Glucose (UA) Negative (NEGATIVE) Urine Ketones Negative (NEGATIVE) Urine Blood 1+ (NEGATIVE) Urine Nitrite Negative (NEGATIVE) Urine Bilirubin Negative (NEGATIVE) Urine Urobilinogen Normal MG/DL (0.0-1.0) Urine Leukocyte Esterase 1+ (NEGATIVE) Urine RBC 0 /HPF (0 - 0) Urine WBC 2-4 /HPF (0 - 0) Urine Squamous Epithelial Cells None /LPF (NONE/OCC) Urine Bacteria None /HPF (NONE) Total Bilirubin 0.3 MG/DL (0.2-1.0) Aspartate Amino Transf (AST/SGOT) 18 U/L (15-37) Alanine Aminotransferase (ALT/SGPT) 13 U/L (12-78) Alkaline Phosphatase 56 U/L (46-116) Total Protein 7.7 G/DL (6.4-8.2) Albumin 2.0 G/DL (3.4-5.0) Globulin 5.7 g/dL Albumin/Globulin Ratio 0.4 (1.0-2.7) Random Vancomycin Level 14.4 ug/mL Laboratory Tests Test 11/07/18 06:08 Random Vancomycin Level 14.4 ug/mL Current Medications Medications (Trade) Dose Ordered Sig/Jarrod Route PRN Reason Start Time Stop Time Status Last Admin Dose Admin Dextrose (Dextrose 50%) 25 ml Q30M PRN IV Hypoglycemia 2/6/19 07:30 12/04/18 07:29 Dextrose (Dextrose 50%) 50 ml Q30M PRN IV Hypoglycemia 11/04/18 07:30 12/04/18 07:29 Dextrose/ Electrolytes 1,000 ml @ 75 mls/hr [id number] IV 11/04/18 08:00 12/04/18 07:59 11/07/18 16:26 Fluconazole (Diflucan) 100 mg DAILY ORAL 11/05/18 20:00 11/12/18 19:59 11/07/18 08:40 Heparin Sodium (Porcine) (Heparin 5000 units/ml) 5,000 units EVERY 12 HOURS SUBQ 11/04/18 09:00 12/04/18 08:59 11/07/18 08:42 Insulin Aspart (NovoLOG) Q6HR SUBQ 11/04/18 12:00 12/04/18 11:59 11/07/18 13:19 Piperacillin Sod/ Tazobactam Sod 3.375 gm/Dextrose 110 ml @ 27.5 mls/hr Q12HR IVPB 11/04/18 09:00 11/11/18 08:59 11/07/18 08:40 Vancomycin HCl (Vanco rx to dose) 1 ea DAILY PRN MISC Per rx protocol 11/06/18 13:00 12/06/18 12:59 Wanda Sams MD Nov 07, 2018 17:44
[2018-11-07 20:00] VITALS: BP 130/60
[2018-11-08] VITALS: BP 116/63
[2018-11-08 04:00] VITALS: BP 120/60
[2018-11-08] MEDS: D5W w/KCl 20mEq 1,000 ML IV SCH (04:27)
[2018-11-08] MEDS: NovoLOG Insulin Flexpen SUBQ SCH ×3 (05:03→18:24)
[2018-11-08 08:00] VITALS: BP 138/60
[2018-11-08 08:26] LABS: HEMATOCRIT 23.5 % (42.0-52.0); HEMOGLOBIN 7.6 G/DL (14.2-18.0); MEAN CORPUSCULAR VOLUME 92 FL (80-99); PLATELET COUNT 234 K/UL (150-450); RED BLOOD COUNT 2.54 M/UL (4.70-6.10); RED CELL DISTRIBUTION WIDTH 15.1 % (11.6-14.8); WHITE BLOOD COUNT 9.9 K/UL (4.8-10.8)
[2018-11-08 08:34] LABS: ANION GAP 6 mmol/L (5-15); BLOOD UREA NITROGEN 29 mg/dL (7-18); CARBON DIOXIDE 25 MMOL/L (21-32); CHLORIDE 104 MMOL/L (98-107); CREATININE 1.7 MG/DL (0.55-1.30); POTASSIUM 4.4 MMOL/L (3.5-5.1); SODIUM 135 MMOL/L (136-145)
[2018-11-08] MEDS: Fluconazole 100mg tab ORAL SCH (09:19)
[2018-11-08] MEDS: Piperacillin/Tazobactam 3.375 GM in D5W 110 ML IVPB SCH ×2 (09:24→21:58)
[2018-11-08] MEDS: Heparin 5000 units/ml inj SUBQ SCH ×2 (09:51→21:59)
[2018-11-08 12:00] VITALS: BP 116/62
--- NOTE | 2018-11-08 13:58 | General Progress Note ---
Assessment/Plan Assessment/Plan Urosepsis _ IV Abx Pre Renal Azotemia + Hypernatremia ---- Free Water BC GPC. DW ID. Liz Added. Worsening anemia due to hemodilution. Holding TF until Na corrected! Labs noted. See orders. Subjective Allergies: Coded Allergies: No Known Allergies (Verified , 12/28/06) Subjective Nonverbal Objective Last 24 Hour Vital Signs Date Time Temp Pulse Resp B/P (MAP) Pulse Ox O2 Delivery O2 Flow Rate FiO2 11/08/18 09:00 Room Air 11/08/18 08:00 97.2 81 20 138/60 (86) 100 11/08/18 08:00 80 11/08/18 04:00 78 11/08/18 04:00 97.2 85 22 120/60 (80) 97 11/08/18 00:00 81 11/08/18 00:00 97.2 87 22 116/63 (80) 100 11/07/18 20:00 Room Air 11/07/18 20:00 97.0 83 24 130/60 (83) 97 11/07/18 20:00 80 11/07/18 16:00 77 11/07/18 16:00 98.8 82 18 138/64 (88) 100 Intake and Output 11/07/18 11/08/18 19:00 07:00 Intake Total 75 ml 973.0 ml Output Total 700 ml 450 ml Balance -625 ml 523.0 ml IV Total 75 ml 973.0 ml Output Urine Total 700 ml 450 ml # Bowel Movements 1 1 Laboratory Tests 11/08/18 08:05: White Blood Count 9.9, Red Blood Count 2.54L, Hemoglobin 7.6L, Hematocrit 23.5L , Mean Corpuscular Volume 92, Mean Corpuscular Hemoglobin 29.8, Mean Corpuscular Hemoglobin Concent 32.3, Red Cell Distribution Width 15.1H, Platelet Count 234, Mean Platelet Volume 7.1, Neutrophils (%) (Auto) , Lymphocytes (%) (Auto) , Monocytes (%) (Auto) , Eosinophils (%) (Auto) , Basophils (%) (Auto) , Differential Total Cells Counted 100, Neutrophils % ( Manual) 72, Lymphocytes % (Manual) 17L, Monocytes % (Manual) 6, Eosinophils % ( Manual) 3, Basophils % (Manual) 0, Myelocytes % 2H, Band Neutrophils 0, Platelet Estimate Adequate, Platelet Morphology Normal, Anisocytosis 1+, Sodium Level 135L, Potassium Level 4.4, Chloride Level 104, Carbon Dioxide Level 25, Anion Gap 6, Blood Urea Nitrogen 29H, Creatinine 1.7H, Estimat Glomerular Filtration Rate , Glucose Level 140H, Calcium Level 9.0, Calcium (Send out) [ Pending], Phosphorus Level 3.8, Magnesium Level 1.6L, Parathyroid Hormone ( Intact) [Pending] Height (Feet): 5 Height (Inches): 10.00 Weight (Pounds): 111 Objective Cachectic. CV RR Lungs CTA Abd SNT. BS + E No CCE Ann López MD Nov 08, 2018 13:58
[2018-11-08 16:00] VITALS: BP 135/56
[2018-11-08 20:00] VITALS: BP 121/55
[2018-11-09] VITALS: BP 126/52
[2018-11-09] MEDS: NovoLOG Insulin Flexpen SUBQ SCH ×4 (00:01→17:41)
[2018-11-09 04:00] VITALS: BP 130/55
[2018-11-09] MEDS: Piperacillin/Tazobactam 3.375 GM in D5W 110 ML IVPB SCH ×4 (05:50→21:52)
[2018-11-09 06:46] LABS: HEMATOCRIT 21.8 % (42.0-52.0); HEMOGLOBIN 7.4 G/DL (14.2-18.0); MEAN CORPUSCULAR VOLUME 90 FL (80-99); PLATELET COUNT 253 K/UL (150-450); RED BLOOD COUNT 2.42 M/UL (4.70-6.10); RED CELL DISTRIBUTION WIDTH 15.5 % (11.6-14.8); WHITE BLOOD COUNT 13.4 K/UL (4.8-10.8)
[2018-11-09 06:54] LABS: ANION GAP 9 mmol/L (5-15); BLOOD UREA NITROGEN 24 mg/dL (7-18); CALCIUM 8.5 MG/DL (8.5-10.1); CARBON DIOXIDE 24 MMOL/L (21-32); CHLORIDE 100 MMOL/L (98-107); CREATININE 1.5 MG/DL (0.55-1.30); POTASSIUM 4.3 MMOL/L (3.5-5.1); SODIUM 133 MMOL/L (136-145)
[2018-11-09 08:00] VITALS: BP 122/66
[2018-11-09] MEDS ORDERED: Vancomycin 1gm/D5W 275ml IVPB SCH ×2 (09:00)
[2018-11-09] MEDS: Fluconazole 100mg tab ORAL SCH (09:42)
[2018-11-09] MEDS: Heparin 5000 units/ml inj SUBQ SCH ×2 (09:44→20:37)
[2018-11-09 12:01] VITALS: BP 128/63
[2018-11-09 16:00] VITALS: BP 134/68
--- NOTE | 2018-11-09 16:43 | General Progress Note ---
Assessment/Plan Assessment/Plan Urosepsis _ IV Abx Pre Renal Azotemia + Hypernatremia ---resolved BC GPC. DW ID. Sonalo Added. Worsening anemia due to hemodilution. Transfuse TF resumed. Labs noted. See orders. Subjective Allergies: Coded Allergies: No Known Allergies (Verified , 12/28/06) Subjective Nonverbal Objective Last 24 Hour Vital Signs Date Time Temp Pulse Resp B/P (MAP) Pulse Ox O2 Delivery O2 Flow Rate FiO2 11/09/18 16:00 98.6 92 20 134/68 (90) 97 11/09/18 12:01 97.1 111 20 128/63 (84) 97 11/09/18 12:00 75 11/09/18 09:00 Room Air 11/09/18 08:00 97.5 87 20 122/66 (84) 96 11/09/18 08:00 81 11/09/18 04:00 80 11/09/18 04:00 97.3 79 18 130/55 (80) 97 11/09/18 00:00 97.4 82 18 126/52 (76) 96 11/08/18 23:20 69 11/08/18 21:00 Room Air 11/08/18 20:00 97.6 78 18 121/55 (77) 96 11/08/18 19:38 66 Intake and Output 11/08/18 11/09/18 19:00 07:00 Intake Total 40 ml 367.5 ml Output Total 300 ml Balance 40 ml 67.5 ml Free Water 30 ml IV Total 137.5 ml Tube Feeding 10 ml 230 ml Output Urine Total 300 ml # Voids 2 # Bowel Movements 1 Laboratory Tests 11/09/18 06:15: White Blood Count 13.4H, Red Blood Count 2.42L, Hemoglobin 7.4L, Hematocrit 21.8L, Mean Corpuscular Volume 90, Mean Corpuscular Hemoglobin 30.7, Mean Corpuscular Hemoglobin Concent 34.2, Red Cell Distribution Width 15.5H, Platelet Count 253, Mean Platelet Volume 6.9, Neutrophils (%) (Auto) , Lymphocytes (%) (Auto) , Monocytes (%) (Auto) , Eosinophils (%) (Auto) , Basophils (%) (Auto) , Differential Total Cells Counted 100, Neutrophils % ( Manual) 83H, Lymphocytes % (Manual) 7L, Monocytes % (Manual) 7, Eosinophils % ( Manual) 0, Basophils % (Manual) 0, Band Neutrophils 3, Platelet Estimate Adequate, Platelet Morphology Normal, Anisocytosis 1+, Sodium Level 133L, Potassium Level 4.3, Chloride Level 100, Carbon Dioxide Level 24, Anion Gap 9, Blood Urea Nitrogen 24H, Creatinine 1.5H, Estimat Glomerular Filtration Rate , Glucose Level 132H, Calcium Level 8.5, Random Vancomycin Level 11.7 Height (Feet): 5 Height (Inches): 10.00 Weight (Pounds): 111 Objective Cachectic. CV RR Lungs CTA Abd SNT. BS + E No CCE Ann López MD Nov 09, 2018 16:43
--- NOTE | 2018-11-09 17:38 | Infectious Diseases Prog Note ---
Assessment/Plan Assessment/Plan ASSESSMENT AND PLAN: 1. sepsis, possible gram + bacteremia, uti, hx esbl ut, akiko/fungal uti, leukocytosis, ? pna - zosyn, vancomycin and diflucan - day # 5 abx - check final bc, f/u ua, surveillance blood cultures, labs and chest x-ray - monitor leukocytosis closely 2. The patient has acute kidney injury, elevated creatinine, likely chronic kidney disease. 3. Diabetes type 2. 4. Hypertension. 5. Blood sugar, blood pressure treatment per primary. 6. History of ESBL UTI. 7. Organic brain syndrome. 8. Esophagitis. 9. Anemia. 10. Past medical history noted. 11. No known drug allergies. 12. Social history negative. 13. Family history noncontributory. 14. MAR was noted. 15. Case discussed with RN. 16. Continue treatment per primary consultants. 17. Skin care protocol. 18. Wounds were noted. There are no acutely infected wounds. 19. Orders were noted and entered. 20. Notes and records were reviewed. Subjective Constitutional: Reports: fatigue; Denies: fever HEENT: Denies: congestion Respiratory: Denies: shortness of breath Cardiovascular: Denies: chest pain Gastrointestinal/Abdominal: Denies: nausea, vomiting, diarrhea Genitourinary: Reports: other - + bowden Neurologic: Denies: headache Psychiatric: Denies: depression Skin: Denies: rash Hematologic: Denies: bleeding Musculoskeletal: Denies: pain Allergies: Coded Allergies: No Known Allergies (Verified , 12/28/06) Objective Vital Signs Last 24 Hour Vital Signs Date Time Temp Pulse Resp B/P (MAP) Pulse Ox O2 Delivery O2 Flow Rate FiO2 11/09/18 16:00 98.6 92 20 134/68 (90) 97 11/09/18 12:01 97.1 111 20 128/63 (84) 97 11/09/18 12:00 75 11/09/18 09:00 Room Air 11/09/18 08:00 97.5 87 20 122/66 (84) 96 11/09/18 08:00 81 11/09/18 04:00 80 11/09/18 04:00 97.3 79 18 130/55 (80) 97 11/09/18 00:00 97.4 82 18 126/52 (76) 96 11/08/18 23:20 69 11/08/18 21:00 Room Air 11/08/18 20:00 97.6 78 18 121/55 (77) 96 11/08/18 19:38 66 Height (Feet): 5 Height (Inches): 10.00 Weight (Pounds): 111 General Appearance: no acute distress HEENT: normocephalic, atraumatic, anicteric, mucous membranes moist Respiratory/Chest: crackles/rales, rhonchi - bilaterally Cardiovascular: normal rate, regular rhythm, no gallop/murmur, no JVD Abdomen: normal bowel sounds, soft, non tender, no organomegaly, non distended Genitourinary: other - + bowden - urine sltl cloudy Extremities: no cyanosis Skin: no rash 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 Findings: Reticular densities are demonstrated at the left lung base and to some extent at the right lung base unchanged and chronic in nature. Borderline cardiomegaly demonstrated. Aorta is calcified. Bones are osteopenic. IMPRESSION: No change since the last exam Microbiology Date/Time Source Procedure Growth Status 11/04/18 00:07 Blood Blood Culture - Preliminary Resulted 11/04/18 01:40 Nasal Nares MRSA Culture - Final Staphylococcus Aureus - Mrsa Complete 11/04/18 01:30 Urine,Clean Catch Urine Culture - Final Akiko Albicans Complete 11/04/18 01:40 Rectum - Final NO CARBAPENEM-RESISTANT ENTEROBACTERI... Complete Laboratory Tests Test 11/09/18 06:15 White Blood Count 13.4 K/UL (4.8-10.8) H Red Blood Count 2.42 M/UL (4.70-6.10) L Hemoglobin 7.4 G/DL (14.2-18.0) L Hematocrit 21.8 % (42.0-52.0) L Mean Corpuscular Volume 90 FL (80-99) Mean Corpuscular Hemoglobin 30.7 PG (27.0-31.0) Mean Corpuscular Hemoglobin Concent 34.2 G/DL (32.0-36.0) Red Cell Distribution Width 15.5 % (11.6-14.8) H Platelet Count 253 K/UL (150-450) Mean Platelet Volume 6.9 FL (6.5-10.1) Neutrophils (%) (Auto) % (45.0-75.0) Lymphocytes (%) (Auto) % (20.0-45.0) Monocytes (%) (Auto) % (1.0-10.0) Eosinophils (%) (Auto) % (0.0-3.0) Basophils (%) (Auto) % (0.0-2.0) Differential Total Cells Counted 100 Neutrophils % (Manual) 83 % (45-75) H Lymphocytes % (Manual) 7 % (20-45) L Monocytes % (Manual) 7 % (1-10) Eosinophils % (Manual) 0 % (0-3) Basophils % (Manual) 0 % (0-2) Band Neutrophils 3 % (0-8) Platelet Estimate Adequate Platelet Morphology Normal Anisocytosis 1+ Sodium Level 133 MMOL/L (136-145) L Potassium Level 4.3 MMOL/L (3.5-5.1) Chloride Level 100 MMOL/L (98-107) Carbon Dioxide Level 24 MMOL/L (21-32) Anion Gap 9 mmol/L (5-15) Blood Urea Nitrogen 24 mg/dL (7-18) H Creatinine 1.5 MG/DL (0.55-1.30) H Estimat Glomerular Filtration Rate mL/min (>60) Glucose Level 132 MG/DL (74-106) H Calcium Level 8.5 MG/DL (8.5-10.1) Random Vancomycin Level 11.7 ug/mL Current Medications Medications (Trade) Dose Ordered Sig/Jarrod Route PRN Reason Start Time Stop Time Status Last Admin Dose Admin Dextrose (Dextrose 50%) 25 ml Q30M PRN IV Hypoglycemia 11/09/18 15:30 12/04/18 07:29 Dextrose (Dextrose 50%) 50 ml Q30M PRN IV Hypoglycemia 11/09/18 15:30 12/04/18 07:29 Fluconazole (Diflucan) 100 mg DAILY ORAL 11/10/18 09:00 11/12/18 19:59 Heparin Sodium (Porcine) (Heparin 5000 units/ml) 5,000 units EVERY 12 HOURS SUBQ 11/09/18 21:00 12/04/18 08:59 Insulin Aspart (NovoLOG) Q6HR SUBQ 11/09/18 18:00 12/04/18 11:59 Piperacillin Sod/ Tazobactam Sod 3.375 gm/Dextrose 110 ml @ 27.5 mls/hr Q8HR IVPB 11/09/18 15:30 11/16/18 15:29 11/09/18 15:27 Vancomycin HCl (Vanco rx to dose) 1 ea DAILY PRN MISC Per rx protocol 11/09/18 15:30 12/09/18 15:29 Vancomycin HCl 500 mg/Dextrose 110 ml @ 110 mls/hr Q24H IVPB 11/11/18 09:00 11/16/18 08:59 Wanda Sams MD Nov 09, 2018 17:38
[2018-11-09 20:00] VITALS: BP 124/61
[2018-11-10] VITALS: BP 116/50
[2018-11-10 04:00] VITALS: BP 114/55
[2018-11-10] MEDS: Piperacillin/Tazobactam 3.375 GM in D5W 110 ML IVPB SCH (05:34)
[2018-11-10] MEDS: NovoLOG Insulin Flexpen SUBQ SCH ×4 (05:41→17:44)
[2018-11-10 08:00] VITALS: BP 122/55
[2018-11-10 08:06] LABS: HEMATOCRIT 31.5 % (42.0-52.0); HEMOGLOBIN 10.7 G/DL (14.2-18.0); MEAN CORPUSCULAR VOLUME 91 FL (80-99); PLATELET COUNT 327 K/UL (150-450); RED BLOOD COUNT 3.45 M/UL (4.70-6.10); RED CELL DISTRIBUTION WIDTH 15.1 % (11.6-14.8)
[2018-11-10 08:12] LABS: WHITE BLOOD COUNT 26.6 K/UL (4.8-10.8)
[2018-11-10 08:17] LABS: ANION GAP 10 mmol/L (5-15); BLOOD UREA NITROGEN 33 mg/dL (7-18); CARBON DIOXIDE 28 MMOL/L (21-32); CHLORIDE 98 MMOL/L (98-107); CREATININE 2.3 MG/DL (0.55-1.30); POTASSIUM 3.9 MMOL/L (3.5-5.1); SODIUM 136 MMOL/L (136-145)
[2018-11-10] MEDS: Heparin 5000 units/ml inj SUBQ SCH ×2 (08:25→21:00)
[2018-11-10] MEDS: Fluconazole 100mg tab ORAL SCH (08:25)
[2018-11-10 12:00] VITALS: BP 125/54
[2018-11-10] MEDS: Vancomycin oral 125mg/2.5ml ORAL SCH ×2 (13:45→17:36)
--- NOTE | 2018-11-10 15:14 | GI Initial Consult Note ---
History of Present Illness General Date patient seen: Nov 10, 2018 Time patient seen: 15:14 Reason for Hospitalization: Abnormal Labs Referring physician: OLY Reason for Consultation: GI BLEED Present Illness HPI This is an 82-year-old elderly from [facility]. He presents with chief complaint of abnormal labs. He had blood work done today which show a very abnormal kidney function. His feeling is 118 and creatinine is 2.58. He is also anemic. Patient is a poor historian 100 gave me history. He has a history of stroke, diabetes, and G-tube placement. No other complaint. GI consulted for coffee-ground emesis. This is a 82-year-old gentleman with a history of type 2 diabetes, hypertension, chronic kidney disease. The patient had an endoscopy on July 30, 2018 was noted to have a gastritis, duodenitis with shallow duodenal ulceration. Time biopsies were obtained on noted that the patient was negative for H. pylori, and focally active chronic duodenitis with erosion. Patient presents today with reports of coffee-ground emesis. Positive OB stool and diarrhea. Tube feedings are currently stopped. Labs reviewed; anemia and leukocytosis. Patient received transfusion yesterday. ROS limited, patient nonverbal G-tube dependent. Home Meds Active Scripts Sucralfate* (CARAFATE*) 1 Gm Tablet, 1 GM GT BID for 30 Days, TAB Prov:Ann López MD 09/20/18 [Sodium Polystyrene Sulfonate] 15 GM POWD No Conflict Check, 15 GM GT DAILY for 30 Days Prov:Ann López MD 09/20/18 Lansoprazole* (LANSOPRAZOLE*) 30 Mg Capsule.dr, 30 MG GT Q12HR for 30 Days, CAP Prov:Ann López MD 09/20/18 Insulin Detemir (LEVEMIR FLEXPEN) 100 Unit/1 Ml Insuln.pen, 15 UNITS SUBQ QHS for 30 Days, EA Prov:Ann López MD 09/20/18 Heparin Sod (Porcine) (HEPARIN SODIUM*) 5 000/1 Ml Vial, 5000 UNITS SUBQ EVERY 12 HOURS for 30 Days, VIAL Prov:Ann López MD 09/20/18 Reported Medications Acetaminophen* (ACETAMINOPHEN 325MG TABLET*) 325 Mg Tablet, 650 MG GT Q4H PRN for Mild Pain/Temp > 100.5, TAB 2/5/19 Nut.tx.gluc.intoler,Lac-Fr,Soy (Glucerna 1.5 Jose) 237 Ml Liquid, 237 ML GT, ML 11/03/18 Magnesium Hydroxide* (MILK OF MAGNESIA*) 400 Mg/5 Ml Oral.susp, 30 ML GT DAILY, ML 11/03/18 Sennosides (Dania-Eugenia) 8.6 Mg Tablet, 8.6 MG PO, TAB 11/03/18 Docusate Sodium* (DOCUSATE SODIUM*) 100 Mg Capsule, 100 MG GT TWICE A DAY, CAP 11/03/18 Med list reviewed/reconciled: Yes Allergies: Coded Allergies: No Known Allergies (Verified , 12/28/06) Patient History History Provided By: Medical Record PMH Narrative Past Medical History: see triage record, old chart reviewed Past Surgical History: other Pertinent Family History: none Social History: Denies: smoking Immunizations: other Reviewed Nursing Documentation: PMH: Agreed; PSxH: Agreed Nursing Documentation-PMH Hx Cardiac Problems: No Hx Hypertension: Yes Hx Diabetes: Yes Hx Cancer: No Hx Dialysis: No - CKD, ARF Hx Neurological Problems: Yes - ALOC, ORGANIC BRAIN SYNDROME Review of Systems All Other Systems: limited Physical Exam Vital Signs Date Time Temp Pulse Resp B/P (MAP) Pulse Ox O2 Delivery O2 Flow Rate FiO2 11/06/18 08:00 75 11/06/18 08:00 97.9 18 124/57 (79) 100 11/06/18 09:00 Room Air Sp02 EP Interpretation: reviewed Labs Laboratory Tests Test 11/10/18 07:00 11/10/18 07:21 Stool Occult Blood Positive (NEGATIVE) White Blood Count 26.6 K/UL (4.8-10.8) #*H Red Blood Count 3.45 M/UL (4.70-6.10) L Hemoglobin 10.7 G/DL (14.2-18.0) #L Hematocrit 31.5 % (42.0-52.0) #L Mean Corpuscular Volume 91 FL (80-99) Mean Corpuscular Hemoglobin 30.9 PG (27.0-31.0) Mean Corpuscular Hemoglobin Concent 33.8 G/DL (32.0-36.0) Red Cell Distribution Width 15.1 % (11.6-14.8) H Platelet Count 327 K/UL (150-450) Mean Platelet Volume 7.4 FL (6.5-10.1) Neutrophils (%) (Auto) % (45.0-75.0) Lymphocytes (%) (Auto) % (20.0-45.0) Monocytes (%) (Auto) % (1.0-10.0) Eosinophils (%) (Auto) % (0.0-3.0) Basophils (%) (Auto) % (0.0-2.0) Differential Total Cells Counted 100 Neutrophils % (Manual) 85 % (45-75) H Lymphocytes % (Manual) 2 % (20-45) L Monocytes % (Manual) 2 % (1-10) Eosinophils % (Manual) 0 % (0-3) Basophils % (Manual) 0 % (0-2) Band Neutrophils 11 % (0-8) H Platelet Estimate Adequate Platelet Morphology Normal Anisocytosis 1+ Sodium Level 136 MMOL/L (136-145) Potassium Level 3.9 MMOL/L (3.5-5.1) Chloride Level 98 MMOL/L (98-107) Carbon Dioxide Level 28 MMOL/L (21-32) Anion Gap 10 mmol/L (5-15) Blood Urea Nitrogen 33 mg/dL (7-18) H Creatinine 2.3 MG/DL (0.55-1.30) #H Estimat Glomerular Filtration Rate mL/min (>60) Glucose Level 103 MG/DL (74-106) Calcium Level 9.0 MG/DL (8.5-10.1) General Appearance: no apparent distress, thin Head: normocephalic Neck: supple Respiratory: normal breath sounds Cardiovascular: normal rate Gastrointestinal: soft Neurologic: alert Skin: normal color, no rash Current Medications Current Medications Medications (Trade) Dose Ordered Sig/Jarrod Route PRN Reason Start Time Stop Time Status Last Admin Dose Admin Dextrose (Dextrose 50%) 25 ml Q30M PRN IV Hypoglycemia 11/09/18 15:30 12/04/18 07:29 Dextrose (Dextrose 50%) 50 ml Q30M PRN IV Hypoglycemia 11/09/18 15:30 12/04/18 07:29 Fluconazole (Diflucan) 100 mg DAILY ORAL 11/10/18 09:00 11/12/18 19:59 11/10/18 08:25 Heparin Sodium (Porcine) (Heparin 5000 units/ml) 5,000 units EVERY 12 HOURS SUBQ 11/09/18 21:00 12/04/18 08:59 11/10/18 08:25 Insulin Aspart (NovoLOG) Q6HR SUBQ 11/09/18 18:00 12/04/18 11:59 11/10/18 05:41 Metronidazole 100 ml @ 100 mls/hr Q8HR IVPB 11/10/18 14:00 11/17/18 13:59 11/10/18 13:45 Ondansetron HCl (Zofran) 4 mg Q6H PRN IVP Nausea & Vomiting 11/09/18 21:00 12/09/18 20:59 11/10/18 06:43 Vancomycin HCl (Firvanq) 125 mg Q6HR ORAL 11/10/18 12:00 11/17/18 11:59 11/10/18 13:45 Vancomycin HCl (Vanco rx to dose) 1 ea DAILY PRN MISC Per rx protocol 11/09/18 15:30 12/09/18 15:29 Vancomycin HCl 500 mg/Dextrose 110 ml @ 110 mls/hr Q24H IVPB 11/11/18 09:00 11/16/18 08:59 GI: Plan Problems: (1) Anemia (2) Coffee ground emesis (3) Duodenal ulcer (4) Duodenitis (5) Dehydration (6) Occult blood in stools Plan EGD scheduled tomorrow, unable to consent. This patient requires endoscopy tomorrow for GI bleed. - hold TF's. Make NPO + IVFs - hold PPI given high suspicion of cdiff. Start H2B. Carafate prn transfusions will follow with additional recommendations post procedure Discussed with Dr. Brooks. Thank you for this patient referral, we will follow. The patient was seen and examined at bedside and all new and available data was reviewed in the patients chart. I agree with the above findings, impression and plan. (Patient seen earlier today. Signature stamp does not reflect patient encounter time.). - MD Graciela Sanz,[facility] MANAGER FLIGHT Nov 10, 2018 15:14
--- NOTE | 2018-11-10 15:30 | Diagnostic Imaging Report ---
Indication: Shortness of breath Technique: One view of the chest Comparison: November 06, 2017 Findings: Reticular opacities at the left lung base are similar to multiple prior exams, presumably represent areas of chronic fibrotic change. Right mid lung interstitial opacities and bibasilar linear opacities are likewise unchanged. Right hemidiaphragm is mildly elevated. The heart is borderline enlarged. The aorta is tortuous and calcified. Findings are overall unchanged Impression: Unchanged, over 4 days, findings as above.
[2018-11-10 16:00] VITALS: BP 112/57
--- NOTE | 2018-11-10 16:58 | General Progress Note ---
Assessment/Plan Assessment/Plan Urosepsis _ IV Abx Pre Renal Azotemia + Hypernatremia ---recurrent!!! GPC. DW ID. Liz Added. Worsening anemia due to hemodilution. Transfuse TF holding! Labs noted. See orders. Subjective Allergies: Coded Allergies: No Known Allergies (Verified , 12/28/06) Subjective Nonverbal. Per RN [place] again. Objective Last 24 Hour Vital Signs Date Time Temp Pulse Resp B/P (MAP) Pulse Ox O2 Delivery O2 Flow Rate FiO2 11/10/18 16:00 97.5 86 19 112/57 (75) 99 11/10/18 12:00 97.9 80 18 125/54 (77) 99 11/10/18 09:53 Room Air 11/10/18 08:00 97.8 82 18 122/55 (77) 100 11/10/18 04:00 97.5 89 17 114/55 (74) 97 11/10/18 00:00 97.5 105 20 116/50 (72) 95 11/09/18 21:00 Room Air 11/09/18 20:00 97.3 109 20 124/61 (82) 98 Intake and Output 11/09/18 11/10/18 18:59 06:59 Intake Total 752.5 ml Output Total 2 ml 250 ml Balance 750.5 ml -250 ml Free Water 200 ml IV Total 82.5 ml Tube Feeding 410 ml Other 60 ml Output Urine Total 2 ml 250 ml # Bowel Movements 1 1 Laboratory Tests 11/10/18 07:00: Stool Occult Blood Positive 11/10/18 07:21: White Blood Count 26.6#*H, Red Blood Count 3.45L, Hemoglobin 10.7#L, Hematocrit 31.5#L, Mean Corpuscular Volume 91, Mean Corpuscular Hemoglobin 30.9, Mean Corpuscular Hemoglobin Concent 33.8, Red Cell Distribution Width 15.1H, Platelet Count 327, Mean Platelet Volume 7.4, Neutrophils (%) (Auto) , Lymphocytes (%) (Auto) , Monocytes (%) (Auto) , Eosinophils (%) (Auto) , Basophils (%) (Auto) , Differential Total Cells Counted 100, Neutrophils % ( Manual) 85H, Lymphocytes % (Manual) 2L, Monocytes % (Manual) 2, Eosinophils % ( Manual) 0, Basophils % (Manual) 0, Band Neutrophils 11H, Platelet Estimate Adequate, Platelet Morphology Normal, Anisocytosis 1+, Sodium Level 136, Potassium Level 3.9, Chloride Level 98, Carbon Dioxide Level 28, Anion Gap 10, Blood Urea Nitrogen 33H, Creatinine 2.3#H, Estimat Glomerular Filtration Rate , Glucose Level 103, Calcium Level 9.0 Height (Feet): 5 Height (Inches): 10.00 Weight (Pounds): 111 Objective Cachectic. CV RR Lungs CTA Abd SNT. BS + E No CCE Ann López MD Nov 10, 2018 16:58
[2018-11-10] MEDS: Sucralfate 1gm tab GT SCH ×2 (17:36→21:36)
[2018-11-10 20:00] VITALS: BP 104/50
--- NOTE | 2018-11-10 23:18 | Infectious Diseases Prog Note ---
Assessment/Plan Assessment/Plan ASSESSMENT AND PLAN: 1. sepsis, possible gram + bacteremia, uti, hx esbl ut, marcy/fungal uti, leukocytosis, ? pna ? c.diff., leukocytosis much worse - rocephin iv, flagyl, po vancomycin, iv vancomycin - check c.diff., labs and chest x-ray - monitor leukocytosis closely - d/w RN earlier today 2. The patient has acute kidney injury, elevated creatinine, likely chronic kidney disease. 3. Diabetes type 2. 4. Hypertension. 5. Blood sugar, blood pressure treatment per primary. 6. History of ESBL UTI. 7. Organic brain syndrome. 8. Esophagitis. 9. Anemia. 10. Past medical history noted. 11. No known drug allergies. 12. Social history negative. 13. Family history noncontributory. 14. MAR was noted. 15. Case discussed with RN. 16. Continue treatment per primary consultants. 17. Skin care protocol. 18. Wounds were noted. There are no acutely infected wounds. 19. Orders were noted and entered. 20. Notes and records were reviewed. Subjective Allergies: Coded Allergies: No Known Allergies (Verified , 12/28/06) Objective Vital Signs Last 24 Hour Vital Signs Date Time Temp Pulse Resp B/P (MAP) Pulse Ox O2 Delivery O2 Flow Rate FiO2 11/10/18 21:00 Room Air 11/10/18 20:00 97.2 76 18 104/50 (68) 96 11/10/18 16:00 97.5 86 19 112/57 (75) 99 11/10/18 12:00 97.9 80 18 125/54 (77) 99 11/10/18 09:53 Room Air 11/10/18 08:00 97.8 82 18 122/55 (77) 100 11/10/18 04:00 97.5 89 17 114/55 (74) 97 11/10/18 00:00 97.5 105 20 116/50 (72) 95 Height (Feet): 5 Height (Inches): 10.00 Weight (Pounds): 111 Objective 11/06/18 - Comparison: 11/03/2018 A single view chest radiograph was obtained. Findings: Reticular densities are demonstrated at the left lung base and to some extent at the right lung base unchanged and chronic in nature. Borderline cardiomegaly demonstrated. Aorta is calcified. Bones are osteopenic. IMPRESSION: No change since the last exam Microbiology Date/Time Source Procedure Growth Status 11/08/18 08:15 Blood Blood Culture - Preliminary NO GROWTH AFTER 24 HOURS Resulted 11/08/18 08:05 Blood Blood Culture - Preliminary NO GROWTH AFTER 24 HOURS Resulted Laboratory Tests Test 11/10/18 07:00 11/10/18 07:21 Stool Occult Blood Positive (NEGATIVE) White Blood Count 26.6 K/UL (4.8-10.8) #*H Red Blood Count 3.45 M/UL (4.70-6.10) L Hemoglobin 10.7 G/DL (14.2-18.0) #L Hematocrit 31.5 % (42.0-52.0) #L Mean Corpuscular Volume 91 FL (80-99) Mean Corpuscular Hemoglobin 30.9 PG (27.0-31.0) Mean Corpuscular Hemoglobin Concent 33.8 G/DL (32.0-36.0) Red Cell Distribution Width 15.1 % (11.6-14.8) H Platelet Count 327 K/UL (150-450) Mean Platelet Volume 7.4 FL (6.5-10.1) Neutrophils (%) (Auto) % (45.0-75.0) Lymphocytes (%) (Auto) % (20.0-45.0) Monocytes (%) (Auto) % (1.0-10.0) Eosinophils (%) (Auto) % (0.0-3.0) Basophils (%) (Auto) % (0.0-2.0) Differential Total Cells Counted 100 Neutrophils % (Manual) 85 % (45-75) H Lymphocytes % (Manual) 2 % (20-45) L Monocytes % (Manual) 2 % (1-10) Eosinophils % (Manual) 0 % (0-3) Basophils % (Manual) 0 % (0-2) Band Neutrophils 11 % (0-8) H Platelet Estimate Adequate Platelet Morphology Normal Anisocytosis 1+ Sodium Level 136 MMOL/L (136-145) Potassium Level 3.9 MMOL/L (3.5-5.1) Chloride Level 98 MMOL/L (98-107) Carbon Dioxide Level 28 MMOL/L (21-32) Anion Gap 10 mmol/L (5-15) Blood Urea Nitrogen 33 mg/dL (7-18) H Creatinine 2.3 MG/DL (0.55-1.30) #H Estimat Glomerular Filtration Rate mL/min (>60) Glucose Level 103 MG/DL (74-106) Calcium Level 9.0 MG/DL (8.5-10.1) Current Medications Medications (Trade) Dose Ordered Sig/Jarrod Route PRN Reason Start Time Stop Time Status Last Admin Dose Admin Dextrose (Dextrose 50%) 25 ml Q30M PRN IV Hypoglycemia 11/09/18 15:30 12/04/18 07:29 Dextrose (Dextrose 50%) 50 ml Q30M PRN IV Hypoglycemia 11/09/18 15:30 12/04/18 07:29 Famotidine (Pepcid) 20 mg BID GT 11/10/18 18:00 12/10/18 17:59 11/10/18 17:36 Fluconazole (Diflucan) 100 mg DAILY ORAL 11/10/18 09:00 11/12/18 19:59 11/10/18 08:25 Heparin Sodium (Porcine) (Heparin 5000 units/ml) 5,000 units EVERY 12 HOURS SUBQ 11/09/18 21:00 12/04/18 08:59 11/10/18 08:25 Insulin Aspart (NovoLOG) Q6HR SUBQ 11/09/18 18:00 12/04/18 11:59 11/10/18 17:44 Metronidazole 100 ml @ 100 mls/hr Q8HR IVPB 11/10/18 14:00 11/17/18 13:59 11/10/18 21:36 Ondansetron HCl (Zofran) 4 mg Q6H PRN IVP Nausea & Vomiting 11/09/18 21:00 12/09/18 20:59 11/10/18 06:43 Sucralfate (Carafate) 1 gm FOUR TIMES A DAY GT 11/10/18 18:00 12/10/18 17:59 11/10/18 21:36 Vancomycin HCl (Firvanq) 125 mg Q6HR ORAL 11/10/18 12:00 11/17/18 11:59 11/10/18 17:36 Vancomycin HCl (Vanco rx to dose) 1 ea DAILY PRN MISC Per rx protocol 11/09/18 15:30 12/09/18 15:29 Wanda Sams MD Nov 10, 2018 23:17
[2018-11-11] VITALS (12 sets, daily range): BP systolic 123–142; BP diastolic 55–77
[2018-11-11] MEDS: cefTRIAXone 1 GM in D5W 50 ML IVPB SCH ×2
[2018-11-11] MEDS: NovoLOG Insulin Flexpen SUBQ SCH ×4 (00:24→18:00)
[2018-11-11] MEDS: Vancomycin oral 125mg/2.5ml ORAL SCH ×4 (00:24→18:15)
[2018-11-11 07:08] LABS: HEMATOCRIT 28.2 % (42.0-52.0); HEMOGLOBIN 9.3 G/DL (14.2-18.0); MEAN CORPUSCULAR VOLUME 92 FL (80-99); PLATELET COUNT 271 K/UL (150-450); RED BLOOD COUNT 3.06 M/UL (4.70-6.10); RED CELL DISTRIBUTION WIDTH 15.8 % (11.6-14.8); WHITE BLOOD COUNT 17.2 K/UL (4.8-10.8)
[2018-11-11 07:36] LABS: ALANINE AMINOTRANSFERASE 11 U/L (12-78); ALBUMIN/GLOBULIN RATIO 0.4 (1.0-2.7); ALKALINE PHOSPHATASE 64 U/L (46-116); ANION GAP 11 mmol/L (5-15); ASPARTATE AMINO TRANSFERASE 16 U/L (15-37); BILIRUBIN,TOTAL 0.3 MG/DL (0.2-1.0); BLOOD UREA NITROGEN 38 mg/dL (7-18); CALCIUM 8.7 MG/DL (8.5-10.1); CARBON DIOXIDE 27 MMOL/L (21-32); CHLORIDE 99 MMOL/L (98-107); CREATININE 2.6 MG/DL (0.55-1.30); POTASSIUM 3.6 MMOL/L (3.5-5.1); SODIUM 137 MMOL/L (136-145)
[2018-11-11] MEDS: Fluconazole 100mg tab ORAL SCH (08:45)
[2018-11-11] MEDS: Sucralfate 1gm tab GT SCH ×4 (08:45→21:39)
[2018-11-11] MEDS: Heparin 5000 units/ml inj SUBQ SCH ×2 (08:46→21:41)
[2018-11-11] MEDS ORDERED: Vancomycin 500 MG in D5W 110 ML IVPB SCH (09:00)
[2018-11-11] MEDS ORDERED: Vancomycin 500mg/D5W 110ml IVPB SCH ×2 (09:00)
--- NOTE | 2018-11-11 10:17 | Diagnostic Imaging Report ---
Indication: Cough Technique: One view of the chest Comparison: 11/10/2018 Findings: And basilar atelectasis versus scarring, right upper lobe interstitial changes, left basilar reticular opacities are unchanged. Pleural spaces remain clear. No new infiltrates. Heart size is normal Impression: Unchanged, over one day, findings as above.
[2018-11-11] MEDS ORDERED: Vancomycin 750mg/NS 275ml IVPB ONE ×2 (11:00)
--- NOTE | 2018-11-11 11:54 | Pre-Procedure Note/Attestation ---
Pre-Procedure Note/Attestation Complete Prior to Procedure Planned Procedure: not applicable Procedure Narrative: egd Indications for Procedure Pre-Operative Diagnosis: gib Attestation I attest that I discussed the nature of the procedure; its benefits; risks and complications; and alternatives (and the risks and benefits of such alternatives ), prior to the procedure, with the patient (or the patient's legal footwear sales representative). I attest that, if there was a reasonable possibility of needing a blood transfusion, the patient (or the patient's legal footwear sales representative) was given the [facility] standardized written summary, pursuant to the David Saqib Blood Safety Act ([place] Health and Safety Code # 1645, as amended). I attest that I re-evaluated the patient just prior to the surgery and that there has been no change in the patient's H&P, except as documented below: Kentrell Brooks MD Nov 11, 2018 11:54
[2018-11-11] MEDS ORDERED: NS 500ML IVPB ONE (11:55)
--- NOTE | 2018-11-11 11:55 | GI Progress Note ---
Assessment/Plan Problems: (1) Coffee ground emesis ICD Codes: K92.0 - Hematemesis SNOMED: 99182627, 169898508 (2) Duodenitis ICD Codes: K29.80 - Duodenitis without bleeding SNOMED: 38866094 (3) Duodenal ulcer ICD Codes: K26.9 - Duodenal ulcer, unspecified as acute or chronic, without hemorrhage or perforation SNOMED: 12758116 Assessment/Plan plan EGD day Subjective Gastrointestinal/Abdominal: Reports: abdominal pain, black stools Objective Last 24 Hour Vital Signs Date Time Temp Pulse Resp B/P (MAP) Pulse Ox O2 Delivery O2 Flow Rate FiO2 11/11/18 08:30 Room Air 11/11/18 08:00 97.6 77 19 129/56 (80) 97 11/11/18 04:00 98.0 78 17 128/74 (92) 99 11/11/18 00:00 97.2 76 18 123/57 (79) 96 11/10/18 21:00 Room Air 11/10/18 20:00 97.2 76 18 104/50 (68) 96 11/10/18 16:00 97.5 86 19 112/57 (75) 99 11/10/18 12:00 97.9 80 18 125/54 (77) 99 Intake and Output 11/10/18 11/11/18 19:00 07:00 Intake Total 150 ml Balance 150 ml Tube Feeding 150 ml # Voids 2 # Bowel Movements 3 1 Laboratory Tests Test 11/11/18 05:50 White Blood Count 17.2 K/UL (4.8-10.8) H Red Blood Count 3.06 M/UL (4.70-6.10) L Hemoglobin 9.3 G/DL (14.2-18.0) L Hematocrit 28.2 % (42.0-52.0) L Mean Corpuscular Volume 92 FL (80-99) Mean Corpuscular Hemoglobin 30.6 PG (27.0-31.0) Mean Corpuscular Hemoglobin Concent 33.1 G/DL (32.0-36.0) Red Cell Distribution Width 15.8 % (11.6-14.8) H Platelet Count 271 K/UL (150-450) Mean Platelet Volume 6.4 FL (6.5-10.1) L Neutrophils (%) (Auto) % (45.0-75.0) Lymphocytes (%) (Auto) % (20.0-45.0) Monocytes (%) (Auto) % (1.0-10.0) Eosinophils (%) (Auto) % (0.0-3.0) Basophils (%) (Auto) % (0.0-2.0) Differential Total Cells Counted 100 Neutrophils % (Manual) 83 % (45-75) H Lymphocytes % (Manual) 7 % (20-45) L Monocytes % (Manual) 7 % (1-10) Eosinophils % (Manual) 1 % (0-3) Basophils % (Manual) 0 % (0-2) Band Neutrophils 2 % (0-8) Platelet Estimate Adequate Platelet Morphology Normal Hypochromasia Anisocytosis 1+ Prothrombin Time 10.7 SEC (9.30-11.50) Prothromb Time International Ratio 1.0 (0.9-1.1) Activated Partial Thromboplast Time 30 SEC (23-33) Sodium Level 137 MMOL/L (136-145) Potassium Level 3.6 MMOL/L (3.5-5.1) Chloride Level 99 MMOL/L (98-107) Carbon Dioxide Level 27 MMOL/L (21-32) Anion Gap 11 mmol/L (5-15) Blood Urea Nitrogen 38 mg/dL (7-18) H Creatinine 2.6 MG/DL (0.55-1.30) H Estimat Glomerular Filtration Rate mL/min (>60) Glucose Level 111 MG/DL (74-106) H Calcium Level 8.7 MG/DL (8.5-10.1) Total Bilirubin 0.3 MG/DL (0.2-1.0) Aspartate Amino Transf (AST/SGOT) 16 U/L (15-37) Alanine Aminotransferase (ALT/SGPT) 11 U/L (12-78) L Alkaline Phosphatase 64 U/L (46-116) Total Protein 7.3 G/DL (6.4-8.2) Albumin 2.0 G/DL (3.4-5.0) L Globulin 5.3 g/dL Albumin/Globulin Ratio 0.4 (1.0-2.7) L Random Vancomycin Level 18.0 ug/mL Height (Feet): 5 Height (Inches): 8.00 Weight (Pounds): 121 General Appearance: confused Cardiovascular: normal rate Respiratory/Chest: lungs clear Abdominal Exam: normal bowel sounds, non tender, soft Extremities: non-tender Kentrell Brooks MD Nov 11, 2018 11:55
[2018-11-11] MEDS ORDERED: Lidocaine 1% MPF 10mg/ml 5ml ONE (12:00)
[2018-11-11] MEDS ORDERED: Propofol 200mg/20ml IV ONE (12:00)
--- NOTE | 2018-11-11 12:17 | Endoscopy Procedure Note ---
Endoscopy Procedure Note General Indication for Procedure: gib Procedures Performed: EGD Operative Findings/Diagnosis: du Specimen: yes Pt Tolerated Procedure Well: Yes Estimated Blood Loss: none Anesthesia Anesthesiologist: pearl white Anesthesia: MAC Inserted Devices Implant(s) used?: No GI Core Measures 50 yrs or older w/o bx or poly: Not Applicable 10yrs. F/U not recommended: Not Applicable Kentrell Brooks MD Nov 11, 2018 12:17
--- NOTE | 2018-11-11 12:21 | Anethesia Preoperative Eval ---
Anesthesia Pre-op PMH/ROS General Date of Evaluation: Nov 11, 2018 Time of Evaluation: 11:54 Anesthesiologist: jo ASA Score: ASA 4 Mallampati Score Class I : Soft palate, uvula, fauces, pillars visible Class II: Soft palate, uvula, fauces visible Class III: Soft palate, base of uvula visible Class IV: Only hard plate visible Mallampati Classification: Class II Surgeon: mingo Diagnosis: gi bleed Surgical Procedure: egd Anesthesia History: none Family History: no anesthesia problems Allergies: Coded Allergies: No Known Allergies (Verified , 12/28/06) Medications: see eMAR Patient NPO?: Yes Past Medical History Cardiovascular: Reports: HTN, CAD, ND, other - coronary artery stent Pulmonary: Reports: other - pneumonia Gastrointestinal/Genitourinary: Reports: GERD, ESRD - on hd, other - gi bleed Neurologic/Psychiatric: Reports: CVA, other - organic brain syndrome Endocrine: Reports: DM HEENT: Reports: [place] (R) Anesthesia Pre-op Phys. Exam Physician Exam Last Vital Signs Date Time Temp Pulse Resp B/P (MAP) Pulse Ox O2 Delivery O2 Flow Rate FiO2 11/11/18 08:30 Room Air 11/11/18 08:00 97.6 77 19 129/56 (80) 97 Constitutional: NAD Neurologic: CN 2-12 intact Cardiovascular: RRR Respiratory: CTA Gastrointestinal: S/NT/ND Airway Exam Mallampati Score: Class II MO: limited Neck: flexible TMD: 2fb ROM: limited Teeth: broken Anesthesia Pre-op A/P Labs Hematology Test 11/11/18 05:50 White Blood Count 17.2 K/UL (4.8-10.8) H Red Blood Count 3.06 M/UL (4.70-6.10) L Hemoglobin 9.3 G/DL (14.2-18.0) L Hematocrit 28.2 % (42.0-52.0) L Mean Corpuscular Volume 92 FL (80-99) Mean Corpuscular Hemoglobin 30.6 PG (27.0-31.0) Mean Corpuscular Hemoglobin Concent 33.1 G/DL (32.0-36.0) Red Cell Distribution Width 15.8 % (11.6-14.8) H Platelet Count 271 K/UL (150-450) Mean Platelet Volume 6.4 FL (6.5-10.1) L Neutrophils (%) (Auto) % (45.0-75.0) Lymphocytes (%) (Auto) % (20.0-45.0) Monocytes (%) (Auto) % (1.0-10.0) Eosinophils (%) (Auto) % (0.0-3.0) Basophils (%) (Auto) % (0.0-2.0) Differential Total Cells Counted 100 Neutrophils % (Manual) 83 % (45-75) H Lymphocytes % (Manual) 7 % (20-45) L Monocytes % (Manual) 7 % (1-10) Eosinophils % (Manual) 1 % (0-3) Basophils % (Manual) 0 % (0-2) Band Neutrophils 2 % (0-8) Platelet Estimate Adequate Platelet Morphology Normal Hypochromasia Anisocytosis 1+ Coagulation Test 11/11/18 05:50 Prothrombin Time 10.7 SEC (9.30-11.50) Prothromb Time International Ratio 1.0 (0.9-1.1) Activated Partial Thromboplast Time 30 SEC (23-33) Chemistry Test 11/11/18 05:50 Sodium Level 137 MMOL/L (136-145) Potassium Level 3.6 MMOL/L (3.5-5.1) Chloride Level 99 MMOL/L (98-107) Carbon Dioxide Level 27 MMOL/L (21-32) Anion Gap 11 mmol/L (5-15) Blood Urea Nitrogen 38 mg/dL (7-18) H Creatinine 2.6 MG/DL (0.55-1.30) H Estimat Glomerular Filtration Rate mL/min (>60) Glucose Level 111 MG/DL (74-106) H Calcium Level 8.7 MG/DL (8.5-10.1) Total Bilirubin 0.3 MG/DL (0.2-1.0) Aspartate Amino Transf (AST/SGOT) 16 U/L (15-37) Alanine Aminotransferase (ALT/SGPT) 11 U/L (12-78) L Alkaline Phosphatase 64 U/L (46-116) Total Protein 7.3 G/DL (6.4-8.2) Albumin 2.0 G/DL (3.4-5.0) L Globulin 5.3 g/dL Albumin/Globulin Ratio 0.4 (1.0-2.7) L Risk Assessment & Plan Assessment: [email or web address] Plan: mac Status Change Before Surgery: No Pre-Antibiotics Drug: Oliva العراقي MD Nov 11, 2018 12:21
[2018-11-11] MEDS ORDERED: DiphenhydrAMINE 50mg/ml Inj IVP PRN (12:30)
[2018-11-11] MEDS ORDERED: Midazolam 2mg/2ml Inj IVP PRN (12:30)
[2018-11-11] MEDS ORDERED: Atropine Inj 1mg/10ml Syr IV PRN (12:30)
--- NOTE | 2018-11-11 12:52 | Immediate Post-Op Evaluation ---
Immediate Post-Op Evalulation Immediate Post-Op Evalulation Procedure: egd w/bx, g-tube exchange Date of Evaluation: Nov 11, 2018 Time of Evaluation: 12:38 IV Fluids: 100ml 0.9ns Blood Products: none Estimated Blood Loss: negligible Blood Pressure Systolic: 137 Blood Pressure Diastolic: 62 Pulse Rate: 76 Respiratory Rate: 18 O2 Sat by Pulse Oximetry: 100 Temperature (Fahrenheit): 97.1 Pain Score (1-10): 0 Nausea: No Vomiting: No Complications none Patient Status: awake, reacts, patent Drug: Oliva العراقي MD Nov 11, 2018 12:52
--- NOTE | 2018-11-11 12:54 | 48 Hour Post Anesthesia Eval ---
Post Anesthesia Evaluation Procedure: egd w/bx, g-tube exchange Date of Evaluation: Nov 11, 2018 Time of Evaluation: 12:40 Blood Pressure Systolic: 125 0: 62 Pulse Rate: 78 Respiratory Rate: 18 Temperature (Fahrenheit): 97.1 O2 Sat by Pulse Oximetry: 100 Airway: patent Nausea: No Vomiting: No Pain Intensity: 0 Hydration Status: adequate Cardiopulmonary Status: stable Mental Status/LOC: patient returned to baseline Post-Anesthesia Complications: none Follow-up care needed: N/A Oliva Almeida MD Nov 11, 2018 12:53
--- NOTE | 2018-11-11 14:26 | General Progress Note ---
Assessment/Plan Assessment/Plan Urosepsis _ IV Abx Pre Renal Azotemia worsening again!!!!!!!!! Restarted IVF Creatinine up to 2.6! !!! BC GPC. DW ID. Liz Added. Worsening anemia due to hemodilution. Transfused GI Bleed - post endoscopies demonstrating esophagitis + duodenal ulcers. No active bleeding now (m/p bled several days ago) Subjective Allergies: Coded Allergies: No Known Allergies (Verified , 12/28/06) Subjective Nonverbal. Per RN [place] again. Objective Last 24 Hour Vital Signs Date Time Temp Pulse Resp B/P (MAP) Pulse Ox O2 Delivery O2 Flow Rate FiO2 11/11/18 13:28 66 20 135/65 100 Room Air 11/11/18 13:15 77 17 142/69 98 Room Air 11/11/18 13:00 66 20 136/57 100 Nasal Cannula 3 11/11/18 12:53 78 18 100 11/11/18 12:52 76 18 100 11/11/18 12:50 69 18 139/69 100 Nasal Cannula 3 11/11/18 12:40 71 17 130/66 100 Nasal Cannula 3 11/11/18 12:30 70 20 141/68 100 Nasal Cannula 3 11/11/18 12:26 97.1 76 18 137/62 100 Nasal Cannula 3 11/11/18 08:30 Room Air 11/11/18 08:00 97.6 77 19 129/56 (80) 97 11/11/18 04:00 98.0 78 17 128/74 (92) 99 11/11/18 00:00 97.2 76 18 123/57 (79) 96 11/10/18 21:00 Room Air 11/10/18 20:00 97.2 76 18 104/50 (68) 96 11/10/18 16:00 97.5 86 19 112/57 (75) 99 Intake and Output 11/10/18 11/11/18 19:00 07:00 Intake Total 150 ml Balance 150 ml Tube Feeding 150 ml # Voids 2 # Bowel Movements 3 1 Laboratory Tests 11/11/18 05:50: White Blood Count 17.2H, Red Blood Count 3.06L, Hemoglobin 9.3L, Hematocrit 28.2L, Mean Corpuscular Volume 92, Mean Corpuscular Hemoglobin 30.6, Mean Corpuscular Hemoglobin Concent 33.1, Red Cell Distribution Width 15.8H, Platelet Count 271, Mean Platelet Volume 6.4L, Neutrophils (%) (Auto) , Lymphocytes (%) (Auto) , Monocytes (%) (Auto) , Eosinophils (%) (Auto) , Basophils (%) (Auto) , Differential Total Cells Counted 100, Neutrophils % ( Manual) 83H, Lymphocytes % (Manual) 7L, Monocytes % (Manual) 7, Eosinophils % ( Manual) 1, Basophils % (Manual) 0, Band Neutrophils 2, Platelet Estimate Adequate, Platelet Morphology Normal, Hypochromasia , Anisocytosis 1+, Prothrombin Time 10.7, Prothromb Time International Ratio 1.0, Activated Partial Thromboplast Time 30, Sodium Level 137, Potassium Level 3.6, Chloride Level 99, Carbon Dioxide Level 27, Anion Gap 11, Blood Urea Nitrogen 38H, Creatinine 2.6H, Estimat Glomerular Filtration Rate , Glucose Level 111H, Calcium Level 8.7, Total Bilirubin 0.3, Aspartate Amino Transf (AST/SGOT) 16, Alanine Aminotransferase (ALT/SGPT) 11L, Alkaline Phosphatase 64, Total Protein 7.3, Albumin 2.0L, Globulin 5.3, Albumin/Globulin Ratio 0.4L, Random Vancomycin Level 18.0 Height (Feet): 5 Height (Inches): 8.00 Weight (Pounds): 121 Objective Cachectic. CV RR Lungs CTA Abd SNT. BS + E No CCE Ann López MD Nov 11, 2018 14:26
[2018-11-11] MEDS: 1/2NS w/KCl 20mEq 1000ml 1,000 ML IV SCH (15:58)
--- NOTE | 2018-11-11 19:43 | Infectious Diseases Prog Note ---
Assessment/Plan Assessment/Plan ASSESSMENT AND PLAN: 1. sepsis, possible gram + bacteremia in chains - 10/02 bottles, uti, marcy/ fungal uti, leukocytosis, ? pna, c.diff. negative, surveillance blood cultures negative - rocephin iv and flagyl - f/u on labs and chest x-ray - monitor leukocytosis closely - d/w Dr. López and RN - avoid nephrotoxic drugs 2. The patient has acute kidney injury, elevated creatinine, likely chronic kidney disease. 3. Diabetes type 2. 4. Hypertension. 5. Blood sugar, blood pressure treatment per primary. 6. History of ESBL UTI. 7. Organic brain syndrome. 8. Esophagitis. 9. Anemia. 10. Past medical history noted. 11. No known drug allergies. 12. Social history negative. 13. Family history noncontributory. 14. MAR was noted. 15. Case discussed with RN. 16. Continue treatment per primary consultants. 17. Skin care protocol. 18. Wounds were noted. There are no acutely infected wounds. 19. Orders were noted and entered. 20. Notes and records were reviewed. Subjective Constitutional: Denies: fever, fatigue HEENT: Denies: congestion Respiratory: Denies: shortness of breath Cardiovascular: Denies: chest pain Gastrointestinal/Abdominal: Denies: nausea, vomiting, diarrhea Genitourinary: Reports: other - no bowden Neurologic: Reports: weakness, other - opens eyes, somewhat responsive Psychiatric: Reports: other - na Skin: Denies: rash Hematologic: Denies: bleeding Musculoskeletal: Denies: pain Allergies: Coded Allergies: No Known Allergies (Verified , 12/28/06) Objective Vital Signs Last 24 Hour Vital Signs Date Time Temp Pulse Resp B/P (MAP) Pulse Ox O2 Delivery O2 Flow Rate FiO2 11/11/18 16:00 98.0 84 20 125/55 (78) 96 11/11/18 13:28 66 20 135/65 100 Room Air 11/11/18 13:15 77 17 142/69 98 Room Air 11/11/18 13:00 66 20 136/57 100 Nasal Cannula 3 11/11/18 12:53 78 18 100 11/11/18 12:52 76 18 100 11/11/18 12:50 69 18 139/69 100 Nasal Cannula 3 11/11/18 12:40 71 17 130/66 100 Nasal Cannula 3 11/11/18 12:30 70 20 141/68 100 Nasal Cannula 3 11/11/18 12:26 97.1 76 18 137/62 100 Nasal Cannula 3 11/11/18 08:30 Room Air 11/11/18 08:00 97.6 77 19 129/56 (80) 97 11/11/18 04:00 98.0 78 17 128/74 (92) 99 11/11/18 00:00 97.2 76 18 123/57 (79) 96 11/10/18 21:00 Room Air 11/10/18 20:00 97.2 76 18 104/50 (68) 96 Height (Feet): 5 Height (Inches): 8.00 Weight (Pounds): 121 General Appearance: no acute distress HEENT: normocephalic, atraumatic, anicteric, mucous membranes moist, supple, no JVD Respiratory/Chest: crackles/rales, rhonchi - bilaterally Cardiovascular: normal rate, regular rhythm, no gallop/murmur, no JVD Abdomen: normal bowel sounds, soft, non tender, no organomegaly, non distended Genitourinary: other - no bowden Extremities: no cyanosis Skin: no rash Neurologic/Psychiatric: echocardiography tech II-XII grossly normal, alert, responsive Lymphatic: no neck adenopathy Musculoskeletal: no effusion Objective 11/06/18 - Comparison: 11/03/2018 A single view chest radiograph was obtained. Findings: Reticular densities are demonstrated at the left lung base and to some extent at the right lung base unchanged and chronic in nature. Borderline cardiomegaly demonstrated. Aorta is calcified. Bones are osteopenic. IMPRESSION: No change since the last exam 11/11/18 - chest x-ray - Comparison: 11/10/2018 Findings: And basilar atelectasis versus scarring, right upper lobe interstitial changes, left basilar reticular opacities are unchanged. Pleural spaces remain clear. No new infiltrates. Heart size is normal Impression: Unchanged, over one day, findings as above. Microbiology Date/Time Source Procedure Growth Status 11/10/18 07:00 Stool Clostridium difficile Toxin Assay - Final Complete Laboratory Tests Test 11/11/18 05:50 White Blood Count 17.2 K/UL (4.8-10.8) H Red Blood Count 3.06 M/UL (4.70-6.10) L Hemoglobin 9.3 G/DL (14.2-18.0) L Hematocrit 28.2 % (42.0-52.0) L Mean Corpuscular Volume 92 FL (80-99) Mean Corpuscular Hemoglobin 30.6 PG (27.0-31.0) Mean Corpuscular Hemoglobin Concent 33.1 G/DL (32.0-36.0) Red Cell Distribution Width 15.8 % (11.6-14.8) H Platelet Count 271 K/UL (150-450) Mean Platelet Volume 6.4 FL (6.5-10.1) L Neutrophils (%) (Auto) % (45.0-75.0) Lymphocytes (%) (Auto) % (20.0-45.0) Monocytes (%) (Auto) % (1.0-10.0) Eosinophils (%) (Auto) % (0.0-3.0) Basophils (%) (Auto) % (0.0-2.0) Differential Total Cells Counted 100 Neutrophils % (Manual) 83 % (45-75) H Lymphocytes % (Manual) 7 % (20-45) L Monocytes % (Manual) 7 % (1-10) Eosinophils % (Manual) 1 % (0-3) Basophils % (Manual) 0 % (0-2) Band Neutrophils 2 % (0-8) Platelet Estimate Adequate Platelet Morphology Normal Hypochromasia Anisocytosis 1+ Prothrombin Time 10.7 SEC (9.30-11.50) Prothromb Time International Ratio 1.0 (0.9-1.1) Activated Partial Thromboplast Time 30 SEC (23-33) Sodium Level 137 MMOL/L (136-145) Potassium Level 3.6 MMOL/L (3.5-5.1) Chloride Level 99 MMOL/L (98-107) Carbon Dioxide Level 27 MMOL/L (21-32) Anion Gap 11 mmol/L (5-15) Blood Urea Nitrogen 38 mg/dL (7-18) H Creatinine 2.6 MG/DL (0.55-1.30) H Estimat Glomerular Filtration Rate mL/min (>60) Glucose Level 111 MG/DL (74-106) H Calcium Level 8.7 MG/DL (8.5-10.1) Total Bilirubin 0.3 MG/DL (0.2-1.0) Aspartate Amino Transf (AST/SGOT) 16 U/L (15-37) Alanine Aminotransferase (ALT/SGPT) 11 U/L (12-78) L Alkaline Phosphatase 64 U/L (46-116) Total Protein 7.3 G/DL (6.4-8.2) Albumin 2.0 G/DL (3.4-5.0) L Globulin 5.3 g/dL Albumin/Globulin Ratio 0.4 (1.0-2.7) L Random Vancomycin Level 18.0 ug/mL Current Medications Medications (Trade) Dose Ordered Sig/Jarrod Route PRN Reason Start Time Stop Time Status Last Admin Dose Admin Al Hydroxide/Mg Hydroxide (Mylanta) 15 ml Q1H PRN ORAL gi upset 11/11/18 12:30 11/11/18 20:00 Atropine Sulfate (Atropine) 0.5 mg Q5M PRN IV bpm less than 45 11/11/18 12:30 11/11/18 20:00 Ceftriaxone Sodium 1 gm/ Dextrose 50 ml @ 100 mls/hr Q24H IVPB 11/11/18 00:00 11/18/18 00:00 11/11/18 00:00 Dextrose (Dextrose 50%) 25 ml Q30M PRN IV Hypoglycemia 11/09/18 15:30 12/04/18 07:29 Dextrose (Dextrose 50%) 50 ml Q30M PRN IV Hypoglycemia 11/09/18 15:30 12/04/18 07:29 Diphenhydramine HCl (Benadryl) 25 mg Q15M PRN IVP Itching 11/11/18 12:30 11/11/18 20:00 Fluconazole (Diflucan) 100 mg DAILY ORAL 11/10/18 09:00 11/12/18 19:59 11/11/18 08:45 Heparin Sodium (Porcine) (Heparin 5000 units/ml) 5,000 units EVERY 12 HOURS SUBQ 11/09/18 21:00 12/04/18 08:59 11/10/18 08:25 Hydralazine HCl (Apresoline) 5 mg Q30M PRN IV SBP>160 OR___/DBP>90 OR___ 11/11/18 12:30 11/11/18 20:00 Insulin Aspart (NovoLOG) Q6HR SUBQ 11/09/18 18:00 12/04/18 11:59 11/11/18 00:24 Lansoprazole (Prevacid) 30 mg EVERY 12 HOURS GT 11/11/18 21:00 12/11/18 20:59 Metronidazole 100 ml @ 100 mls/hr Q8HR IVPB 11/10/18 14:00 11/17/18 13:59 11/11/18 15:58 Midazolam HCl (Versed 2mg/2ml vial) 1 mg Q15M PRN IVP For Anxiety 11/11/18 12:30 11/11/18 20:00 Ondansetron HCl (Zofran) 4 mg Q1H PRN IVP Nausea & Vomiting 11/11/18 12:30 11/11/18 20:00 Ondansetron HCl (Zofran) 4 mg Q6H PRN IVP Nausea & Vomiting 11/09/18 21:00 12/09/18 20:59 11/10/18 06:43 Sodium 1,000 ml @ 75 mls/hr [id number] IV 11/11/18 15:00 12/11/18 14:59 11/11/18 15:58 Sucralfate (Carafate) 1 gm FOUR TIMES A DAY GT 11/10/18 18:00 12/10/18 17:59 11/11/18 18:15 Vancomycin HCl (Firvanq) 125 mg Q6HR ORAL 11/10/18 12:00 11/17/18 11:59 11/11/18 18:15 Vancomycin HCl (Vanco rx to dose) 1 ea DAILY PRN MISC Per rx protocol 11/09/18 15:30 12/09/18 15:29 Wanda Sams MD Nov 11, 2018 19:43
[2018-11-11 20:03] LABS: APPEARANCE,URINE CLEAR; BILIRUBIN, URINE NEGATIVE (NEGATIVE); COLOR,URINE PALE YELLOW; GLUCOSE, URINE (UA) NEGATIVE (NEGATIVE); KETONES,URINE NEGATIVE (NEGATIVE); LEUKOCYTE ESTERASE ,URINE 1+ (NEGATIVE); NITRITE,URINE NEGATIVE (NEGATIVE); PH,URINE 5 (4.5-8.0); PROTEIN,URINE 2+ (NEGATIVE); UROBILINOGEN,URINE NORMAL MG/DL (0.0-1.0)
--- NOTE | 2018-11-11 21:00 | Procedure Note ---
DATE OF PROCEDURE: 11/11/2018 SURGEON: Kentrell Brooks M.D. ANESTHESIOLOGIST: Dr. Fish. REFERRING PHYSICIAN: Ann López M.D. PROCEDURE: Upper endoscopy with biopsy and G-tube exchange. ANESTHESIA: Per Dr. Fish. INSTRUMENT: Olympus adult flexible upper endoscope. INDICATION: Upper GI bleeding. The procedure, risks, benefits, and possible consequences, including hemorrhage, aspiration, perforation and infection, and alternative treatments, were explained to the patient/legal guardian by Dr. Kentrell Brooks and the patient/legal guardian understood and accepted these risks. DESCRIPTION OF PROCEDURE: After informed consent was obtained and the patient was adequately sedated, Olympus upper endoscope was advanced from the mouth into the second portion of duodenum and retroflexion was performed in the stomach. The patient had evidence of distal erosive esophagitis. In the stomach, there was diffuse gastritis. Random biopsy from antrum was obtained to rule out H. pylori infection. The patient also had evidence of severe duodenitis with at least 2 or 3 ulcers in the duodenum. Overall, there was no any evidence of active bleeding from any of these lesions. No evidence of any visible vessel or adherent clot. At this time, we realized that the G-tube balloon was leaking, so we removed the 22-Arabic G-tube and replaced it with another 22-Arabic balloon type of G-tube without any complication. The patient tolerated the procedure very well without any complication. SUMMARY OF FINDINGS: 1. Erosive distal esophagitis. 2. Gastritis, status post biopsy. 3. Status post G-tube exchange. 4. Severe duodenitis with at least 3 ulcers in the duodenum. RECOMMENDATIONS: The patient to be started back on tube feeding. Monitor for residuals. The patient to be on PPI and Carafate. Monitor hemoglobin and hematocrit. Transfuse as needed to keep hemoglobin above 8. I want to thank Dr. López for this kind referral. Kentrell Brooks M.D. DR: Suad JOB#: [id number] CC: Ann López M.D.; Fax#: [phone]
[2018-11-12] VITALS: BP 123/56
[2018-11-12] MEDS: cefTRIAXone 1 GM in D5W 50 ML IVPB SCH (00:46)
[2018-11-12 04:00] VITALS: BP 131/60
[2018-11-12] MEDS: 1/2NS w/KCl 20mEq 1000ml 1,000 ML IV SCH ×2 (04:44→17:25)
[2018-11-12] MEDS: NovoLOG Insulin Flexpen SUBQ SCH ×4 (06:04→17:27)
[2018-11-12 07:16] LABS: BASOPHILS % (AUTO) 0.8 % (0.0-2.0); EOSINOPHILS % (AUTO) 0.8 % (0.0-3.0); HEMOGLOBIN 9.1 G/DL (14.2-18.0); LYMPHOCYTES % (AUTO) 9.1 % (20.0-45.0); MEAN CORPUSCULAR VOLUME 93 FL (80-99); NEUTROPHILS % (AUTO) 83.2 % (45.0-75.0); PLATELET COUNT 301 K/UL (150-450); RED CELL DISTRIBUTION WIDTH 15.4 % (11.6-14.8); WHITE BLOOD COUNT 11.6 K/UL (4.8-10.8)
[2018-11-12 07:28] LABS: ANION GAP 8 mmol/L (5-15); BLOOD UREA NITROGEN 36 mg/dL (7-18); CALCIUM 8.2 MG/DL (8.5-10.1); CARBON DIOXIDE 26 MMOL/L (21-32); CHLORIDE 101 MMOL/L (98-107); POTASSIUM 4.1 MMOL/L (3.5-5.1); SODIUM 135 MMOL/L (136-145)
[2018-11-12 08:00] VITALS: BP 118/56
[2018-11-12] MEDS: Sucralfate 1gm tab GT SCH ×4 (09:31→22:08)
[2018-11-12] MEDS: Fluconazole 100mg tab ORAL SCH (09:31)
[2018-11-12] MEDS: Heparin 5000 units/ml inj SUBQ SCH ×2 (09:32→22:08)
--- NOTE | 2018-11-12 10:42 | GI Progress Note ---
Assessment/Plan Problems: (1) Coffee ground emesis ICD Codes: K92.0 - Hematemesis SNOMED: 12009575, 556320396 (2) Duodenitis ICD Codes: K29.80 - Duodenitis without bleeding SNOMED: 80902693 (3) Duodenal ulcer ICD Codes: K26.9 - Duodenal ulcer, unspecified as acute or chronic, without hemorrhage or perforation SNOMED: 49788049 (4) Occult blood in stools ICD Codes: R19.5 - Other fecal abnormalities SNOMED: 71142464, 183342324 (5) Anemia ICD Codes: D64.9 - Anemia, unspecified SNOMED: 454114442 Qualifiers: Qualified Codes: D64.9 - Anemia, unspecified (6) G tube feedings ICD Codes: Z93.1 - Gastrostomy status SNOMED: 593044248, 908137686 (7) DM Status: stable Status Narrative Discussed with Dr. Brooks Assessment/Plan SUMMARY OF FINDINGS: 1. Erosive distal esophagitis. 2. Gastritis, status post biopsy. 3. Status post G-tube exchange. 4. Severe duodenitis with at least 3 ulcers in the duodenum. RECOMMENDATIONS: Restart G-tube feedings The patient to be on PPI and Carafate. Monitor hemoglobin and hematocrit. Transfuse as needed to keep hemoglobin above 8. Reglan as needed follow labs The patient was seen and examined at bedside and all new and available data was reviewed in the patients chart. I agree with the above findings, impression and plan. (Patient seen earlier today. Signature stamp does not reflect patient encounter time.). - Kentrell Brooks MD Subjective Subjective Limited Objective Last 24 Hour Vital Signs Date Time Temp Pulse Resp B/P (MAP) Pulse Ox O2 Delivery O2 Flow Rate FiO2 11/12/18 08:15 Room Air 11/12/18 08:00 98.1 81 20 118/56 (76) 98 11/12/18 04:00 98.3 81 17 131/60 (83) 11/12/18 00:00 98.0 81 17 123/56 (78) 11/11/18 22:04 Room Air 11/11/18 20:00 97.3 80 17 126/77 (93) 11/11/18 16:00 98.0 84 20 125/55 (78) 96 11/11/18 13:28 66 20 135/65 100 Room Air 11/11/18 13:15 77 17 142/69 98 Room Air 11/11/18 13:00 66 20 136/57 100 Nasal Cannula 3 11/11/18 12:53 78 18 100 11/11/18 12:52 76 18 100 11/11/18 12:50 69 18 139/69 100 Nasal Cannula 3 11/11/18 12:40 71 17 130/66 100 Nasal Cannula 3 11/11/18 12:30 70 20 141/68 100 Nasal Cannula 3 11/11/18 12:26 97.1 76 18 137/62 100 Nasal Cannula 3 Intake and Output 11/11/18 11/12/18 19:00 07:00 Intake Total 275 ml 1455 ml Output Total 0 ml Balance 275 ml 1455 ml Intake Oral 0 ml Free Water 100 ml 200 ml IV Total 125 ml 750 ml Tube Feeding 50 ml 505 ml Output Urine Total 0 ml # Voids 2 # Bowel Movements 2 1 Laboratory Tests Test 11/11/18 17:00 11/12/18 05:35 Urine Color Pale yellow Urine Appearance Clear Urine pH 5 (4.5-8.0) Urine Specific [place] 1.015 (1.005-1.035) Urine Protein 2+ (NEGATIVE) H Urine Glucose (UA) Negative (NEGATIVE) Urine Ketones Negative (NEGATIVE) Urine Blood Negative (NEGATIVE) Urine Nitrite Negative (NEGATIVE) Urine Bilirubin Negative (NEGATIVE) Urine Urobilinogen Normal MG/DL (0.0-1.0) Urine Leukocyte Esterase 1+ (NEGATIVE) H Urine RBC 2-4 /HPF (0 - 0) H Urine WBC 15-20 /HPF (0 - 0) H Urine Squamous Epithelial Cells Occasional /LPF Urine Bacteria Few /HPF (NONE) White Blood Count 11.6 K/UL (4.8-10.8) H Red Blood Count 2.80 M/UL (4.70-6.10) L Hemoglobin 9.1 G/DL (14.2-18.0) L Hematocrit 26.0 % (42.0-52.0) L Mean Corpuscular Volume 93 FL (80-99) Mean Corpuscular Hemoglobin 32.3 PG (27.0-31.0) H Mean Corpuscular Hemoglobin Concent 34.9 G/DL (32.0-36.0) Red Cell Distribution Width 15.4 % (11.6-14.8) H Platelet Count 301 K/UL (150-450) Mean Platelet Volume 6.3 FL (6.5-10.1) L Neutrophils (%) (Auto) 83.2 % (45.0-75.0) H Lymphocytes (%) (Auto) 9.1 % (20.0-45.0) L Monocytes (%) (Auto) 6.0 % (1.0-10.0) Eosinophils (%) (Auto) 0.8 % (0.0-3.0) Basophils (%) (Auto) 0.8 % (0.0-2.0) Sodium Level 135 MMOL/L (136-145) L Potassium Level 4.1 MMOL/L (3.5-5.1) Chloride Level 101 MMOL/L (98-107) Carbon Dioxide Level 26 MMOL/L (21-32) Anion Gap 8 mmol/L (5-15) Blood Urea Nitrogen 36 mg/dL (7-18) H Creatinine 2.0 MG/DL (0.55-1.30) H Estimat Glomerular Filtration Rate mL/min (>60) Glucose Level 133 MG/DL (74-106) H Calcium Level 8.2 MG/DL (8.5-10.1) L Height (Feet): 5 Height (Inches): 8.00 Weight (Pounds): 121 General Appearance: WD/WN, no apparent distress, alert Cardiovascular: normal rate Respiratory/Chest: normal breath sounds, no respiratory distress Abdominal Exam: normal bowel sounds, non tender, soft, GT site - Clean dry and intact Extremities: non-tender Supa Owens NP Nov 12, 2018 10:42
[2018-11-12 12:00] VITALS: BP 118/50
[2018-11-12 16:00] VITALS: BP 124/57
--- NOTE | 2018-11-12 17:43 | General Progress Note ---
Assessment/Plan Assessment/Plan Urosepsis _ IV Abx Pre Renal Azotemia worsening again! Restarted IVF Creatinine down to 2 BC GPC. DW ID. Liz Added. Worsening anemia due to hemodilution. Transfused GI Bleed - post endoscopies demonstrating esophagitis + duodenal ulcers. No active bleeding now (m/p bled several days ago) Subjective Allergies: Coded Allergies: No Known Allergies (Verified , 12/28/06) Subjective Nonverbal. Per RN [place] again. Objective Last 24 Hour Vital Signs Date Time Temp Pulse Resp B/P (MAP) Pulse Ox O2 Delivery O2 Flow Rate FiO2 11/12/18 16:00 98.6 75 20 124/57 (79) 100 11/12/18 12:00 98.2 81 20 118/50 (72) 98 11/12/18 08:15 Room Air 11/12/18 08:00 98.1 81 20 118/56 (76) 98 11/12/18 04:00 98.3 81 17 131/60 (83) 11/12/18 00:00 98.0 81 17 123/56 (78) 11/11/18 22:04 Room Air 11/11/18 20:00 97.3 80 17 126/77 (93) Intake and Output 11/11/18 11/12/18 19:00 07:00 Intake Total 275 ml 1455 ml Output Total 0 ml Balance 275 ml 1455 ml Intake Oral 0 ml Free Water 100 ml 200 ml IV Total 125 ml 750 ml Tube Feeding 50 ml 505 ml Output Urine Total 0 ml # Voids 2 # Bowel Movements 2 1 Laboratory Tests 11/12/18 05:35: White Blood Count 11.6H, Red Blood Count 2.80L, Hemoglobin 9.1L, Hematocrit 26.0L, Mean Corpuscular Volume 93, Mean Corpuscular Hemoglobin 32.3H, Mean Corpuscular Hemoglobin Concent 34.9, Red Cell Distribution Width 15.4H, Platelet Count 301, Mean Platelet Volume 6.3L, Neutrophils (%) (Auto) 83.2H, Lymphocytes (%) (Auto) 9.1L, Monocytes (%) (Auto) 6.0, Eosinophils (%) (Auto) 0.8, Basophils (%) (Auto) 0.8, Sodium Level 135L, Potassium Level 4.1, Chloride Level 101, Carbon Dioxide Level 26, Anion Gap 8, Blood Urea Nitrogen 36H, Creatinine 2.0H, Estimat Glomerular Filtration Rate , Glucose Level 133H, Calcium Level 8.2L Height (Feet): 5 Height (Inches): 8.00 Weight (Pounds): 121 Objective Cachectic. CV RR Lungs CTA Abd SNT. BS + E No CCE Ann López MD Nov 12, 2018 17:43
[2018-11-12 20:00] VITALS: BP 120/55
[2018-11-13] VITALS: BP 133/56
[2018-11-13] MEDS: cefTRIAXone 1 GM in D5W 50 ML IVPB SCH (00:53)
[2018-11-13] MEDS: NovoLOG Insulin Flexpen SUBQ SCH ×4 (00:53→18:09)
[2018-11-13 04:00] VITALS: BP 133/65
[2018-11-13] MEDS: 1/2NS w/KCl 20mEq 1000ml 1,000 ML IV SCH (06:50)
[2018-11-13 07:54] LABS: ANION GAP 7 mmol/L (5-15); BLOOD UREA NITROGEN 34 mg/dL (7-18); CALCIUM 7.9 MG/DL (8.5-10.1); CARBON DIOXIDE 26 MMOL/L (21-32); CHLORIDE 101 MMOL/L (98-107); CREATININE 1.8 MG/DL (0.55-1.30); SODIUM 134 MMOL/L (136-145)
[2018-11-13 08:00] VITALS: BP 129/65
[2018-11-13 08:09] LABS: BASOPHILS % (AUTO) 1.1 % (0.0-2.0); EOSINOPHILS % (AUTO) 0.3 % (0.0-3.0); HEMATOCRIT 26.5 % (42.0-52.0); HEMOGLOBIN 9.4 G/DL (14.2-18.0); LYMPHOCYTES % (AUTO) 8.9 % (20.0-45.0); MEAN CORPUSCULAR VOLUME 92 FL (80-99); NEUTROPHILS % (AUTO) 83.7 % (45.0-75.0); PLATELET COUNT 391 K/UL (150-450); RED BLOOD COUNT 2.87 M/UL (4.70-6.10); WHITE BLOOD COUNT 10.5 K/UL (4.8-10.8)
[2018-11-13] MEDS: Sucralfate 1gm tab GT SCH ×4 (09:28→21:20)
[2018-11-13] MEDS: Heparin 5000 units/ml inj SUBQ SCH ×2 (09:29→21:26)
--- NOTE | 2018-11-13 10:50 | General Progress Note ---
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 fu labs ppi and carafate Subjective ROS Limited/Unobtainable: No Allergies: Coded Allergies: No Known Allergies (Verified , 12/28/06) Objective Last 24 Hour Vital Signs Date Time Temp Pulse Resp B/P (MAP) Pulse Ox O2 Delivery O2 Flow Rate FiO2 11/13/18 08:00 98.9 18 129/65 (86) 92 11/13/18 04:00 98.4 20 133/65 (87) 100 11/13/18 00:00 98.0 75 20 133/56 (81) 100 11/12/18 21:00 Room Air 11/12/18 20:00 97.8 72 20 120/55 (76) 100 11/12/18 16:00 98.6 75 20 124/57 (79) 100 11/12/18 12:00 98.2 81 20 118/50 (72) 98 Intake and Output 11/12/18 11/13/18 18:59 06:59 Intake Total 1585 ml 1615 ml Balance 1585 ml 1615 ml Free Water 260 ml IV Total 925 ml 915 ml Tube Feeding 660 ml 440 ml # Voids 3 # Bowel Movements 2 Laboratory Tests 11/13/18 06:57: White Blood Count 10.5, Red Blood Count 2.87L, Hemoglobin 9.4L, Hematocrit 26.5L , Mean Corpuscular Volume 92, Mean Corpuscular Hemoglobin 32.9H, Mean Corpuscular Hemoglobin Concent 35.7, Red Cell Distribution Width 15.0H, Platelet Count 391, Mean Platelet Volume 5.8L, Neutrophils (%) (Auto) 83.7H, Lymphocytes (%) (Auto) 8.9L, Monocytes (%) (Auto) 6.0, Eosinophils (%) (Auto) 0.3, Basophils (%) (Auto) 1.1, Sodium Level 134L, Potassium Level 5.0, Chloride Level 101, Carbon Dioxide Level 26, Anion Gap 7, Blood Urea Nitrogen 34H, Creatinine 1.8H, Estimat Glomerular Filtration Rate , Glucose Level 123H, Calcium Level 7.9L Height (Feet): 5 Height (Inches): 8.00 Weight (Pounds): 121 General Appearance: alert EENT: normal ENT inspection Neck: supple Cardiovascular: normal rate Respiratory/Chest: decreased breath sounds Abdomen: normal bowel sounds, non tender, soft, no organomegaly Extremities: non-tender Kentrell Brooks MD Nov 13, 2018 10:50
[2018-11-13 12:00] VITALS: BP 131/61
[2018-11-13] MEDS ORDERED: NS 275ml ONE (15:17)
--- NOTE | 2018-11-13 15:41 | General Progress Note ---
Assessment/Plan Assessment/Plan Urosepsis _ IV Abx Pre Renal Azotemia worsening again! Restarted IVF Creatinine down to 2 BC GPC. DW ID. Liz Added. Worsening anemia due to hemodilution. Transfused GI Bleed - 1. Erosive distal esophagitis. 2. Gastritis, status post biopsy. 3. Status post G-tube exchange. 4. Severe duodenitis with at least 3 ulcers in the duodenum. (m/p bled several days ago) Subjective Allergies: Coded Allergies: No Known Allergies (Verified , 12/28/06) Subjective Nonverbal. Objective Last 24 Hour Vital Signs Date Time Temp Pulse Resp B/P (MAP) Pulse Ox O2 Delivery O2 Flow Rate FiO2 11/13/18 12:00 98.1 18 131/61 (84) 98 11/13/18 09:00 Room Air 11/13/18 08:00 98.9 18 129/65 (86) 92 11/13/18 04:00 98.4 20 133/65 (87) 100 11/13/18 00:00 98.0 75 20 133/56 (81) 100 11/12/18 21:00 Room Air 11/12/18 20:00 97.8 72 20 120/55 (76) 100 11/12/18 16:00 98.6 75 20 124/57 (79) 100 Intake and Output 11/12/18 11/13/18 19:00 07:00 Intake Total 1510 ml 1560 ml Balance 1510 ml 1560 ml Free Water 260 ml IV Total 850 ml 915 ml Tube Feeding 660 ml 385 ml # Voids 3 # Bowel Movements 2 Laboratory Tests 11/13/18 06:57: White Blood Count 10.5, Red Blood Count 2.87L, Hemoglobin 9.4L, Hematocrit 26.5L , Mean Corpuscular Volume 92, Mean Corpuscular Hemoglobin 32.9H, Mean Corpuscular Hemoglobin Concent 35.7, Red Cell Distribution Width 15.0H, Platelet Count 391, Mean Platelet Volume 5.8L, Neutrophils (%) (Auto) 83.7H, Lymphocytes (%) (Auto) 8.9L, Monocytes (%) (Auto) 6.0, Eosinophils (%) (Auto) 0.3, Basophils (%) (Auto) 1.1, Sodium Level 134L, Potassium Level 5.0, Chloride Level 101, Carbon Dioxide Level 26, Anion Gap 7, Blood Urea Nitrogen 34H, Creatinine 1.8H, Estimat Glomerular Filtration Rate , Glucose Level 123H, Calcium Level 7.9L Height (Feet): 5 Height (Inches): 8.00 Weight (Pounds): 121 Objective Cachectic. CV RR Lungs CTA Abd SNT. BS + E No CCE Ann López MD Nov 13, 2018 15:41
[2018-11-13 16:00] VITALS: BP 132/68
--- NOTE | 2018-11-13 19:42 | Infectious Diseases Prog Note ---
Assessment/Plan Assessment/Plan ASSESSMENT AND PLAN: 1. sepsis, possible gram + bacteremia in chains - 10/02 bottles, uti, marcy/ fungal uti, leukocytosis, ? pna, c.diff. negative, surveillance blood cultures negative - rocephin iv and flagyl x one week - f/u on labs and chest x-ray - leukocytosis resolved - monitor cr and labs 2. The patient has acute kidney injury, elevated creatinine, likely chronic kidney disease. 3. Diabetes type 2. 4. Hypertension. 5. Blood sugar, blood pressure treatment per primary. 6. History of ESBL UTI. 7. Organic brain syndrome. 8. Esophagitis. 9. Anemia. 10. Past medical history noted. 11. No known drug allergies. 12. Social history negative. 13. Family history noncontributory. 14. MAR was noted. 15. Case discussed with RN. 16. Continue treatment per primary consultants. 17. Skin care protocol. 18. Wounds were noted. There are no acutely infected wounds. 19. Orders were noted and entered. 20. Notes and records were reviewed. Subjective Constitutional: Reports: fatigue, other; Denies: fever HEENT: Denies: congestion Respiratory: Denies: shortness of breath Cardiovascular: Denies: chest pain Gastrointestinal/Abdominal: Reports: other - no abdominal pain; Denies: nausea , vomiting, diarrhea Genitourinary: Reports: other - no Neurologic: Denies: headache Psychiatric: Reports: other - na Skin: Denies: rash Hematologic: Denies: bleeding Musculoskeletal: Denies: pain Allergies: Coded Allergies: No Known Allergies (Verified , 12/28/06) Objective Vital Signs Last 24 Hour Vital Signs Date Time Temp Pulse Resp B/P (MAP) Pulse Ox O2 Delivery O2 Flow Rate FiO2 11/13/18 16:00 97.9 12 132/68 (89) 98 11/13/18 12:00 98.1 18 131/61 (84) 98 11/13/18 09:00 Room Air 11/13/18 08:00 98.9 18 129/65 (86) 92 11/13/18 04:00 98.4 20 133/65 (87) 100 11/13/18 00:00 98.0 75 20 133/56 (81) 100 11/12/18 21:00 Room Air 11/12/18 20:00 97.8 72 20 120/55 (76) 100 Height (Feet): 5 Height (Inches): 8.00 Weight (Pounds): 121 General Appearance: no acute distress HEENT: normocephalic, atraumatic, anicteric Respiratory/Chest: lungs clear, normal breath sounds, no respiratory distress, no accessory muscle use Cardiovascular: normal rate, regular rhythm, no gallop/murmur, no JVD Abdomen: normal bowel sounds, soft, non tender, no organomegaly, non distended Genitourinary: other - no bowden Extremities: no cyanosis Skin: no rash Neurologic/Psychiatric: recreation director II-XII grossly normal, alert, responsive Lymphatic: no neck adenopathy Musculoskeletal: no effusion Objective 11/06/18 - Comparison: 11/03/2018 A single view chest radiograph was obtained. Findings: Reticular densities are demonstrated at the left lung base and to some extent at the right lung base unchanged and chronic in nature. Borderline cardiomegaly demonstrated. Aorta is calcified. Bones are osteopenic. IMPRESSION: No change since the last exam 11/11/18 - chest x-ray - Comparison: 11/10/2018 Findings: And basilar atelectasis versus scarring, right upper lobe interstitial changes, left basilar reticular opacities are unchanged. Pleural spaces remain clear. No new infiltrates. Heart size is normal Impression: Unchanged, over one day, findings as above. Microbiology Date/Time Source Procedure Growth Status 11/10/18 13:00 Blood Blood Culture - Preliminary NO GROWTH AFTER 48 HOURS Resulted 11/04/18 01:40 Nasal Nares MRSA Culture - Final Staphylococcus Aureus - Mrsa Complete 11/10/18 07:00 Stool Clostridium difficile Toxin Assay - Final Complete 11/11/18 17:00 Urine,Clean Catch Urine Culture - Preliminary NO GROWTH AFTER 24 HOURS Resulted 11/04/18 01:40 Rectum - Final NO CARBAPENEM-RESISTANT ENTEROBACTERI... Complete Microbiology Date/Time Source Procedure Growth Status 11/11/18 17:00 Urine,Clean Catch Urine Culture - Preliminary NO GROWTH AFTER 24 HOURS Resulted Laboratory Tests Test 11/13/18 06:57 White Blood Count 10.5 K/UL (4.8-10.8) Red Blood Count 2.87 M/UL (4.70-6.10) L Hemoglobin 9.4 G/DL (14.2-18.0) L Hematocrit 26.5 % (42.0-52.0) L Mean Corpuscular Volume 92 FL (80-99) Mean Corpuscular Hemoglobin 32.9 PG (27.0-31.0) H Mean Corpuscular Hemoglobin Concent 35.7 G/DL (32.0-36.0) Red Cell Distribution Width 15.0 % (11.6-14.8) H Platelet Count 391 K/UL (150-450) Mean Platelet Volume 5.8 FL (6.5-10.1) L Neutrophils (%) (Auto) 83.7 % (45.0-75.0) H Lymphocytes (%) (Auto) 8.9 % (20.0-45.0) L Monocytes (%) (Auto) 6.0 % (1.0-10.0) Eosinophils (%) (Auto) 0.3 % (0.0-3.0) Basophils (%) (Auto) 1.1 % (0.0-2.0) Sodium Level 134 MMOL/L (136-145) L Potassium Level 5.0 MMOL/L (3.5-5.1) Chloride Level 101 MMOL/L (98-107) Carbon Dioxide Level 26 MMOL/L (21-32) Anion Gap 7 mmol/L (5-15) Blood Urea Nitrogen 34 mg/dL (7-18) H Creatinine 1.8 MG/DL (0.55-1.30) H Estimat Glomerular Filtration Rate mL/min (>60) Glucose Level 123 MG/DL (74-106) H Calcium Level 7.9 MG/DL (8.5-10.1) L Current Medications Medications (Trade) Dose Ordered Sig/Jarrod Route PRN Reason Start Time Stop Time Status Last Admin Dose Admin Ceftriaxone Sodium 1 gm/ Dextrose 50 ml @ 100 mls/hr Q24H IVPB 11/11/18 00:00 11/18/18 00:00 11/13/18 00:53 Dextrose (Dextrose 50%) 25 ml Q30M PRN IV Hypoglycemia 11/09/18 15:30 12/04/18 07:29 Dextrose (Dextrose 50%) 50 ml Q30M PRN IV Hypoglycemia 11/09/18 15:30 12/04/18 07:29 Fenofibrate (Tricor) 134 mg DAILY ORAL 11/14/18 09:00 3/18/19 08:59 Heparin Sodium (Porcine) (Heparin 5000 units/ml) 5,000 units EVERY 12 HOURS SUBQ 11/09/18 21:00 12/04/18 08:59 11/13/18 09:29 Insulin Aspart (NovoLOG) Q6HR SUBQ 11/09/18 18:00 12/04/18 11:59 11/13/18 18:09 Lansoprazole (Prevacid) 30 mg EVERY 12 HOURS GT 11/11/18 21:00 12/11/18 20:59 11/13/18 09:28 Metronidazole 100 ml @ 100 mls/hr Q8HR IVPB 11/10/18 14:00 11/17/18 13:59 11/13/18 14:23 Ondansetron HCl (Zofran) 4 mg Q6H PRN IVP Nausea & Vomiting 11/09/18 21:00 12/09/18 20:59 11/10/18 06:43 Sucralfate (Carafate) 1 gm FOUR TIMES A DAY GT 11/10/18 18:00 12/10/18 17:59 11/13/18 18:08 Wanda Sams MD Nov 13, 2018 19:41
[2018-11-13 20:00] VITALS: BP 132/56
[2018-11-13] MEDS: metroNIDAZOLE 500mg tab ORAL SCH (21:20)
[2018-11-14] VITALS: BP 129/60
[2018-11-14] MEDS: cefTRIAXone 1 GM in D5W 50 ML IVPB SCH (00:17)
[2018-11-14] MEDS: NovoLOG Insulin Flexpen SUBQ SCH ×4 (00:21→17:47)
[2018-11-14 04:00] VITALS: BP 132/75
[2018-11-14] MEDS: metroNIDAZOLE 500mg tab ORAL SCH ×3 (05:34→21:39)
[2018-11-14 08:00] VITALS: BP 143/70
[2018-11-14] MEDS ORDERED: 1/2NS w/KCl 20mEq 1000ml 1,000 ML IV SCH (08:00)
[2018-11-14 09:20] LABS: BASOPHILS % (AUTO) 0.5 % (0.0-2.0); EOSINOPHILS % (AUTO) 0.4 % (0.0-3.0); HEMATOCRIT 28.1 % (42.0-52.0); HEMOGLOBIN 10.4 G/DL (14.2-18.0); LYMPHOCYTES % (AUTO) 8.1 % (20.0-45.0); MEAN CORPUSCULAR VOLUME 91 FL (80-99); MONOCYTES % (AUTO) 6.8 % (1.0-10.0); NEUTROPHILS % (AUTO) 84.2 % (45.0-75.0); PLATELET COUNT 314 K/UL (150-450); RED BLOOD COUNT 3.08 M/UL (4.70-6.10); RED CELL DISTRIBUTION WIDTH 15.1 % (11.6-14.8); WHITE BLOOD COUNT 11.2 K/UL (4.8-10.8)
[2018-11-14] MEDS: Sucralfate 1gm tab GT SCH ×4 (09:22→20:49)
[2018-11-14] MEDS: Heparin 5000 units/ml inj SUBQ SCH ×2 (09:24→20:50)
[2018-11-14 10:10] LABS: ANION GAP 7 mmol/L (5-15); BLOOD UREA NITROGEN 35 mg/dL (7-18); CALCIUM 8.7 MG/DL (8.5-10.1); CARBON DIOXIDE 25 MMOL/L (21-32); CHLORIDE 98 MMOL/L (98-107); CHOLESTEROL 192 MG/DL (< 200); CREATININE 1.6 MG/DL (0.55-1.30); HDL CHOLESTEROL 25 MG/DL (40-60); POTASSIUM 5.2 MMOL/L (3.5-5.1); SODIUM 130 MMOL/L (136-145); TRIGLYCERIDES 1140 MG/DL (30-150)
--- NOTE | 2018-11-14 10:34 | General Progress Note ---
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 fu labs ppi and carafate Subjective ROS Limited/Unobtainable: No Allergies: Coded Allergies: No Known Allergies (Verified , 12/28/06) Objective Last 24 Hour Vital Signs Date Time Temp Pulse Resp B/P (MAP) Pulse Ox O2 Delivery O2 Flow Rate FiO2 11/14/18 09:00 Room Air 11/14/18 08:00 97.9 87 18 143/70 (94) 98 11/14/18 04:00 98.5 80 19 132/75 (94) 98 11/14/18 00:00 98.9 79 17 129/60 (83) 98 11/13/18 21:00 Room Air 11/13/18 20:00 98.8 84 17 132/56 (81) 99 11/13/18 16:00 97.9 12 132/68 (89) 98 11/13/18 12:00 98.1 18 131/61 (84) 98 Intake and Output 11/13/18 11/14/18 18:59 06:59 Intake Total 55 ml 910 ml Balance 55 ml 910 ml Free Water 200 ml IV Total 50 ml Tube Feeding 55 ml 660 ml # Voids 3 # Bowel Movements 2 Laboratory Tests 11/14/18 08:15: White Blood Count 11.2H, Red Blood Count 3.08L, Hemoglobin 10.4L, Hematocrit 28.1L, Mean Corpuscular Volume 91, Mean Corpuscular Hemoglobin 33.7H, Mean Corpuscular Hemoglobin Concent 36.8H, Red Cell Distribution Width 15.1H, Platelet Count 314, Mean Platelet Volume 7.4, Neutrophils (%) (Auto) 84.2H, Lymphocytes (%) (Auto) 8.1L, Monocytes (%) (Auto) 6.8, Eosinophils (%) (Auto) 0.4, Basophils (%) (Auto) 0.5, Sodium Level 130L, Potassium Level 5.2H, Chloride Level 98, Carbon Dioxide Level 25, Anion Gap 7, Blood Urea Nitrogen 35H , Creatinine 1.6H, Estimat Glomerular Filtration Rate , Glucose Level 159H, Calcium Level 8.7, Triglycerides Level 1140H, Cholesterol Level 192, LDL Cholesterol 58, HDL Cholesterol 25L, Cholesterol/HDL Ratio 7.7H Height (Feet): 5 Height (Inches): 8.00 Weight (Pounds): 121 General Appearance: no apparent distress EENT: normal ENT inspection Neck: supple Cardiovascular: normal rate Respiratory/Chest: decreased breath sounds Abdomen: normal bowel sounds, non tender, soft Extremities: non-tender Kentrell Brooks MD Nov 14, 2018 10:34
--- NOTE | 2018-11-14 11:59 | General Progress Note ---
Assessment/Plan Assessment/Plan Urosepsis _ IV Abx Pre Renal Azotemia worsening again! Restarted IVF Creatinine down to 1.6 Na 130 K 5.2 ! see orders BC GPC. DW ID. Liz Added. Worsening anemia due to hemodilution. Transfused GI Bleed - 1. Erosive distal esophagitis. 2. Gastritis, status post biopsy. 3. Status post G-tube exchange. 4. Severe duodenitis with at least 3 ulcers in the duodenum. (m/p bled several days ago) Subjective Allergies: Coded Allergies: No Known Allergies (Verified , 12/28/06) Subjective Nonverbal. Objective Last 24 Hour Vital Signs Date Time Temp Pulse Resp B/P (MAP) Pulse Ox O2 Delivery O2 Flow Rate FiO2 11/14/18 09:00 Room Air 11/14/18 08:00 97.9 87 18 143/70 (94) 98 11/14/18 04:00 98.5 80 19 132/75 (94) 98 11/14/18 00:00 98.9 79 17 129/60 (83) 98 11/13/18 21:00 Room Air 11/13/18 20:00 98.8 84 17 132/56 (81) 99 11/13/18 16:00 97.9 12 132/68 (89) 98 11/13/18 12:00 98.1 18 131/61 (84) 98 Intake and Output 11/13/18 11/14/18 18:59 06:59 Intake Total 55 ml 910 ml Balance 55 ml 910 ml Free Water 200 ml IV Total 50 ml Tube Feeding 55 ml 660 ml # Voids 3 # Bowel Movements 2 Laboratory Tests 11/14/18 08:15: White Blood Count 11.2H, Red Blood Count 3.08L, Hemoglobin 10.4L, Hematocrit 28.1L, Mean Corpuscular Volume 91, Mean Corpuscular Hemoglobin 33.7H, Mean Corpuscular Hemoglobin Concent 36.8H, Red Cell Distribution Width 15.1H, Platelet Count 314, Mean Platelet Volume 7.4, Neutrophils (%) (Auto) 84.2H, Lymphocytes (%) (Auto) 8.1L, Monocytes (%) (Auto) 6.8, Eosinophils (%) (Auto) 0.4, Basophils (%) (Auto) 0.5, Sodium Level 130L, Potassium Level 5.2H, Chloride Level 98, Carbon Dioxide Level 25, Anion Gap 7, Blood Urea Nitrogen 35H , Creatinine 1.6H, Estimat Glomerular Filtration Rate , Glucose Level 159H, Calcium Level 8.7, Triglycerides Level 1140H, Cholesterol Level 192, LDL Cholesterol 58, HDL Cholesterol 25L, Cholesterol/HDL Ratio 7.7H Height (Feet): 5 Height (Inches): 8.00 Weight (Pounds): 121 Objective Cachectic. CV RR Lungs CTA Abd SNT. BS + E No CCE Ann López MD Nov 14, 2018 11:59
[2018-11-14 12:00] VITALS: BP 145/72
[2018-11-14 16:00] VITALS: BP 162/77
[2018-11-14 20:00] VITALS: BP 146/68
[2018-11-15] MEDS: cefTRIAXone 1 GM in D5W 50 ML IVPB SCH (00:04)
[2018-11-15] MEDS: NovoLOG Insulin Flexpen SUBQ SCH ×4 (00:06→17:35)
[2018-11-15 00:24] VITALS: BP 151/78
[2018-11-15 04:09] VITALS: BP 108/66
[2018-11-15] MEDS: metroNIDAZOLE 500mg tab ORAL SCH ×3 (05:50→21:04)
[2018-11-15 06:52] VITALS: BP 146/75
[2018-11-15 08:00] VITALS: BP 134/67
[2018-11-15] MEDS: Sucralfate 1gm tab GT SCH ×4 (08:22→21:02)
[2018-11-15] MEDS: Heparin 5000 units/ml inj SUBQ SCH ×2 (08:25→21:03)
--- NOTE | 2018-11-15 10:54 | General Progress Note ---
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 fu labs ppi and carafate Subjective ROS Limited/Unobtainable: No Allergies: Coded Allergies: No Known Allergies (Verified , 12/28/06) Objective Last 24 Hour Vital Signs Date Time Temp Pulse Resp B/P (MAP) Pulse Ox O2 Delivery O2 Flow Rate FiO2 11/15/18 08:00 Room Air 11/15/18 08:00 97.6 88 20 134/67 (89) 99 11/15/18 06:52 90 146/75 (98) 11/15/18 04:09 97.6 80 18 108/66 (80) 96 11/15/18 00:37 98.0 11/15/18 00:24 94 20 151/78 (102) 97 11/14/18 22:09 Room Air 11/14/18 20:00 97.8 92 18 146/68 (94) 98 11/14/18 16:00 97.1 90 18 162/77 (105) 98 11/14/18 12:00 97.2 87 18 145/72 (96) 95 Intake and Output 11/14/18 11/15/18 19:00 07:00 Intake Total 55 ml 1175 ml Output Total 400 ml Balance -345 ml 1175 ml Free Water 200 ml IV Total 425 ml Tube Feeding 55 ml 550 ml Output Urine Total 400 ml # Voids 1 # Bowel Movements 1 Height (Feet): 5 Height (Inches): 8.00 Weight (Pounds): 121 General Appearance: no apparent distress EENT: normal ENT inspection Neck: normal alignment Cardiovascular: normal rate Respiratory/Chest: decreased breath sounds Abdomen: normal bowel sounds, non tender, soft Extremities: non-tender Kentrell Brooks MD Nov 15, 2018 10:54
--- NOTE | 2018-11-15 13:21 | General Progress Note ---
Assessment/Plan Assessment/Plan Urosepsis _ IV Abx Pre Renal Azotemia worsening again! Restarted IVF Creatinine down to 1.6 Na 130 K 5.2 ! see orders BC GPC. DW ID. Liz Added. Worsening anemia due to hemodilution. Transfused GI Bleed - 1. Erosive distal esophagitis. 2. Gastritis, status post biopsy. 3. Status post G-tube exchange. 4. Severe duodenitis with at least 3 ulcers in the duodenum. (m/p bled several days ago) Subjective Allergies: Coded Allergies: No Known Allergies (Verified , 12/28/06) Subjective Nonverbal. Objective Last 24 Hour Vital Signs Date Time Temp Pulse Resp B/P (MAP) Pulse Ox O2 Delivery O2 Flow Rate FiO2 11/15/18 08:00 Room Air 11/15/18 08:00 97.6 88 20 134/67 (89) 99 11/15/18 06:52 90 146/75 (98) 11/15/18 04:09 97.6 80 18 108/66 (80) 96 11/15/18 00:37 98.0 11/15/18 00:24 94 20 151/78 (102) 97 11/14/18 22:09 Room Air 11/14/18 20:00 97.8 92 18 146/68 (94) 98 11/14/18 16:00 97.1 90 18 162/77 (105) 98 Intake and Output 11/14/18 11/15/18 18:59 06:59 Intake Total 1230 ml Output Total 400 ml Balance -400 ml 1230 ml Free Water 200 ml IV Total 425 ml Tube Feeding 605 ml Output Urine Total 400 ml # Voids 1 # Bowel Movements 1 Height (Feet): 5 Height (Inches): 8.00 Weight (Pounds): 121 Objective Cachectic. CV RR Lungs CTA Abd SNT. BS + E No CCE Ann López MD Nov 15, 2018 13:21
[2018-11-15] MEDS ORDERED: NS 275ml ONE (15:51)
[2018-11-15] MEDS ORDERED: Tubing IV Secondary IV ONE (15:51)
--- NOTE | 2018-11-15 15:56 | Infectious Diseases Prog Note ---
Assessment/Plan Assessment/Plan ASSESSMENT AND PLAN: 1. sepsis, possible gram + bacteremia in chains - 10/02 bottles, uti, marcy/ fungal uti, leukocytosis, ? pna, c.diff. negative, surveillance blood cultures negative - rocephin iv and flagyl x 5ays - f/u on labs and chest x-ray - leukocytosis improved - monitor cr and labs 2. The patient has acute kidney injury, elevated creatinine, likely chronic kidney disease. 3. Diabetes type 2. 4. Hypertension. 5. Blood sugar, blood pressure treatment per primary. 6. History of ESBL UTI. 7. Organic brain syndrome. 8. Esophagitis. 9. Anemia. 10. Past medical history noted. 11. No known drug allergies. 12. Social history negative. 13. Family history noncontributory. 14. MAR was noted. 15. Case discussed with RN. 16. Continue treatment per primary consultants. 17. Skin care protocol. 18. Wounds were noted. There are no acutely infected wounds. 19. Orders were noted and entered. 20. Notes and records were reviewed. Subjective Constitutional: Reports: fatigue; Denies: fever HEENT: Denies: congestion Respiratory: Denies: shortness of breath Cardiovascular: Denies: chest pain Gastrointestinal/Abdominal: Denies: nausea Genitourinary: Reports: other - + bowden Neurologic: Reports: other - weak but responsive Psychiatric: Denies: depression Skin: Denies: rash Hematologic: Denies: bleeding Musculoskeletal: Denies: pain Allergies: Coded Allergies: No Known Allergies (Verified , 12/28/06) Objective Vital Signs Last 24 Hour Vital Signs Date Time Temp Pulse Resp B/P (MAP) Pulse Ox O2 Delivery O2 Flow Rate FiO2 11/15/18 08:00 Room Air 11/15/18 08:00 97.6 88 20 134/67 (89) 99 11/15/18 06:52 90 146/75 (98) 11/15/18 04:09 97.6 80 18 108/66 (80) 96 11/15/18 00:37 98.0 11/15/18 00:24 94 20 151/78 (102) 97 11/14/18 22:09 Room Air 11/14/18 20:00 97.8 92 18 146/68 (94) 98 11/14/18 16:00 97.1 90 18 162/77 (105) 98 Height (Feet): 5 Height (Inches): 8.00 Weight (Pounds): 121 General Appearance: no acute distress HEENT: normocephalic, atraumatic, anicteric, mucous membranes moist Respiratory/Chest: lungs clear, normal breath sounds, no respiratory distress, no accessory muscle use Cardiovascular: normal rate, regular rhythm, no gallop/murmur, no JVD Abdomen: normal bowel sounds, soft, non tender, no organomegaly, non distended Genitourinary: other - + bowden - urine clear Extremities: no cyanosis Skin: no rash Neurologic/Psychiatric: physical therapy aid II-XII grossly normal, alert, responsive Lymphatic: no neck adenopathy Musculoskeletal: no effusion Objective 11/06/18 - Comparison: 11/03/2018 A single view chest radiograph was obtained. Findings: Reticular densities are demonstrated at the left lung base and to some extent at the right lung base unchanged and chronic in nature. Borderline cardiomegaly demonstrated. Aorta is calcified. Bones are osteopenic. IMPRESSION: No change since the last exam 11/11/18 - chest x-ray - Comparison: 11/10/2018 Findings: And basilar atelectasis versus scarring, right upper lobe interstitial changes, left basilar reticular opacities are unchanged. Pleural spaces remain clear. No new infiltrates. Heart size is normal Impression: Unchanged, over one day, findings as above. Microbiology Date/Time Source Procedure Growth Status 11/10/18 13:00 Blood Blood Culture - Preliminary NO GROWTH AFTER 4 DAYS Resulted 11/04/18 01:40 Nasal Nares MRSA Culture - Final Staphylococcus Aureus - Mrsa Complete 11/10/18 07:00 Stool Clostridium difficile Toxin Assay - Final Complete 11/11/18 17:00 Urine,Clean Catch Urine Culture - Final NO GROWTH AFTER 48 HOURS Complete 11/04/18 01:40 Rectum - Final NO CARBAPENEM-RESISTANT ENTEROBACTERI... Complete Labs Test 11/13/18 06:57 11/14/18 08:15 White Blood Count 10.5 K/UL (4.8-10.8) 11.2 K/UL (4.8-10.8) Red Blood Count 2.87 M/UL (4.70-6.10) 3.08 M/UL (4.70-6.10) Hemoglobin 9.4 G/DL (14.2-18.0) 10.4 G/DL (14.2-18.0) Hematocrit 26.5 % (42.0-52.0) 28.1 % (42.0-52.0) Mean Corpuscular Volume 92 FL (80-99) 91 FL (80-99) Mean Corpuscular Hemoglobin 32.9 PG (27.0-31.0) 33.7 PG (27.0-31.0) Mean Corpuscular Hemoglobin Concent 35.7 G/DL (32.0-36.0) 36.8 G/DL (32.0-36.0) Red Cell Distribution Width 15.0 % (11.6-14.8) 15.1 % (11.6-14.8) Platelet Count 391 K/UL (150-450) 314 K/UL (150-450) Mean Platelet Volume 5.8 FL (6.5-10.1) 7.4 FL (6.5-10.1) Neutrophils (%) (Auto) 83.7 % (45.0-75.0) 84.2 % (45.0-75.0) Lymphocytes (%) (Auto) 8.9 % (20.0-45.0) 8.1 % (20.0-45.0) Monocytes (%) (Auto) 6.0 % (1.0-10.0) 6.8 % (1.0-10.0) Eosinophils (%) (Auto) 0.3 % (0.0-3.0) 0.4 % (0.0-3.0) Basophils (%) (Auto) 1.1 % (0.0-2.0) 0.5 % (0.0-2.0) Sodium Level 134 MMOL/L (136-145) 130 MMOL/L (136-145) Potassium Level 5.0 MMOL/L (3.5-5.1) 5.2 MMOL/L (3.5-5.1) Chloride Level 101 MMOL/L (98-107) 98 MMOL/L (98-107) Carbon Dioxide Level 26 MMOL/L (21-32) 25 MMOL/L (21-32) Anion Gap 7 mmol/L (5-15) 7 mmol/L (5-15) Blood Urea Nitrogen 34 mg/dL (7-18) 35 mg/dL (7-18) Creatinine 1.8 MG/DL (0.55-1.30) 1.6 MG/DL (0.55-1.30) Estimat Glomerular Filtration Rate mL/min (>60) mL/min (>60) Glucose Level 123 MG/DL (74-106) 159 MG/DL (74-106) Calcium Level 7.9 MG/DL (8.5-10.1) 8.7 MG/DL (8.5-10.1) Triglycerides Level 1140 MG/DL (30-150) Cholesterol Level 192 MG/DL (< 200) LDL Cholesterol 58 mg/dL (<100) HDL Cholesterol 25 MG/DL (40-60) Cholesterol/HDL Ratio 7.7 (3.3-4.4) Current Medications Medications (Trade) Dose Ordered Sig/Jarrod Route PRN Reason Start Time Stop Time Status Last Admin Dose Admin Ceftriaxone Sodium 1 gm/ Dextrose 50 ml @ 100 mls/hr Q24H IVPB 11/11/18 00:00 11/18/18 00:00 11/15/18 00:04 Dextrose (Dextrose 50%) 25 ml Q30M PRN IV Hypoglycemia 11/09/18 15:30 12/04/18 07:29 Dextrose (Dextrose 50%) 50 ml Q30M PRN IV Hypoglycemia 11/09/18 15:30 12/04/18 07:29 Fenofibrate (Tricor) 134 mg DAILY ORAL 11/14/18 09:00 12/14/18 08:59 11/15/18 08:23 Heparin Sodium (Porcine) (Heparin 5000 units/ml) 5,000 units EVERY 12 HOURS SUBQ 11/09/18 21:00 12/04/18 08:59 11/15/18 08:25 Insulin Aspart (NovoLOG) Q6HR SUBQ 11/09/18 18:00 12/04/18 11:59 11/15/18 13:05 Lansoprazole (Prevacid) 30 mg EVERY 12 HOURS GT 11/11/18 21:00 12/11/18 20:59 11/15/18 08:22 Metronidazole (Flagyl) 500 mg EVERY 8 HOURS ORAL 11/13/18 22:00 11/20/18 21:59 11/15/18 13:01 Ondansetron HCl (Zofran) 4 mg Q6H PRN IVP Nausea & Vomiting 11/09/18 21:00 12/09/18 20:59 11/10/18 06:43 Sodium Chloride 1,000 ml @ 75 mls/hr [id number] IV 11/14/18 18:30 12/14/18 18:29 11/15/18 01:08 Sucralfate (Carafate) 1 gm FOUR TIMES A DAY GT 11/10/18 18:00 12/10/18 17:59 11/15/18 13:01 Wanda Sams MD Nov 15, 2018 15:56
[2018-11-15 16:00] VITALS: BP 147/73
[2018-11-15 20:00] VITALS: BP 143/68
[2018-11-16] VITALS: BP 134/65
[2018-11-16] MEDS: NovoLOG Insulin Flexpen SUBQ SCH ×5 (00:11→23:44)
[2018-11-16] MEDS: cefTRIAXone 1 GM in D5W 50 ML IVPB SCH ×2 (00:12→23:39)
[2018-11-16 04:00] VITALS: BP 141/73
[2018-11-16] MEDS: metroNIDAZOLE 500mg tab ORAL SCH ×3 (06:24→21:26)
[2018-11-16 08:00] VITALS: BP 136/66
[2018-11-16 09:16] LABS: BASOPHILS % (AUTO) 1.2 % (0.0-2.0); EOSINOPHILS % (AUTO) 0.8 % (0.0-3.0); HEMATOCRIT 27.7 % (42.0-52.0); HEMOGLOBIN 9.8 G/DL (14.2-18.0); LYMPHOCYTES % (AUTO) 7.4 % (20.0-45.0); MEAN CORPUSCULAR VOLUME 92 FL (80-99); MONOCYTES % (AUTO) 5.9 % (1.0-10.0); NEUTROPHILS % (AUTO) 84.6 % (45.0-75.0); PLATELET COUNT 289 K/UL (150-450); RED CELL DISTRIBUTION WIDTH 14.9 % (11.6-14.8); WHITE BLOOD COUNT 11.5 K/UL (4.8-10.8)
--- NOTE | 2018-11-16 10:06 | General Progress Note ---
Assessment/Plan Assessment/Plan Urosepsis _ IV Abx Pre Renal Azotemia worsening again! Restarted IVF Creatinine down to 1.6 Na 130 K 5.2 ! see orders BC GPC. DW ID. Liz Added. Lab results not ready ( 10 am) GI Bleed - 1. Erosive distal esophagitis. 2. Gastritis, status post biopsy. 3. Status post G-tube exchange. 4. Severe duodenitis with at least 3 ulcers in the duodenum. (m/p bled several days ago) Subjective Allergies: Coded Allergies: No Known Allergies (Verified , 12/28/06) Subjective Nonverbal. Objective Last 24 Hour Vital Signs Date Time Temp Pulse Resp B/P (MAP) Pulse Ox O2 Delivery O2 Flow Rate FiO2 11/16/18 08:00 97.5 83 19 136/66 (89) 100 11/16/18 04:00 98.2 89 19 141/73 (95) 99 11/16/18 00:00 97.9 95 18 134/65 (88) 99 11/15/18 21:00 Room Air 11/15/18 20:00 96.8 79 16 143/68 (93) 99 11/15/18 16:00 97.2 83 20 147/73 (97) 98 Intake and Output 11/15/18 11/16/18 19:00 07:00 Intake Total 735 ml 1855 ml Output Total 700 ml Balance 735 ml 1155 ml Free Water 350 ml IV Total 75 ml 900 ml Tube Feeding 660 ml 605 ml Output Urine Total 700 ml # Bowel Movements 1 Laboratory Tests 11/16/18 08:35: White Blood Count 11.5H, Red Blood Count 3.00L, Hemoglobin 9.8L, Hematocrit 27.7L, Mean Corpuscular Volume 92, Mean Corpuscular Hemoglobin 32.7H, Mean Corpuscular Hemoglobin Concent 35.4, Red Cell Distribution Width 14.9H, Platelet Count 289, Mean Platelet Volume 5.9L, Neutrophils (%) (Auto) 84.6H, Lymphocytes (%) (Auto) 7.4L, Monocytes (%) (Auto) 5.9, Eosinophils (%) (Auto) 0.8, Basophils (%) (Auto) 1.2, Sodium Level [Pending], Potassium Level [Pending] , Chloride Level [Pending], Carbon Dioxide Level [Pending], Blood Urea Nitrogen [Pending], Creatinine [Pending], Estimat Glomerular Filtration Rate [Pending], Glucose Level [Pending], Calcium Level [Pending], Magnesium Level [Pending] Height (Feet): 5 Height (Inches): 8.00 Weight (Pounds): 121 Objective Cachectic. CV RR Lungs CTA Abd SNT. BS + E No CCE Ann López MD Nov 16, 2018 10:06
[2018-11-16 10:14] LABS: ANION GAP 9 mmol/L (5-15); BLOOD UREA NITROGEN 28 mg/dL (7-18); CALCIUM 8.4 MG/DL (8.5-10.1); CARBON DIOXIDE 23 MMOL/L (21-32); CHLORIDE 101 MMOL/L (98-107); CREATININE 1.5 MG/DL (0.55-1.30); POTASSIUM 5.2 MMOL/L (3.5-5.1); SODIUM 133 MMOL/L (136-145)
[2018-11-16] MEDS: Sucralfate 1gm tab GT SCH ×4 (10:39→21:31)
[2018-11-16] MEDS: Heparin 5000 units/ml inj SUBQ SCH ×2 (10:40→21:31)
--- NOTE | 2018-11-16 11:17 | GI Progress Note ---
Assessment/Plan Problems: (1) Coffee ground emesis ICD Codes: K92.0 - Hematemesis SNOMED: 31097664, 131446678 (2) Duodenitis ICD Codes: K29.80 - Duodenitis without bleeding SNOMED: 99851784 (3) Duodenal ulcer ICD Codes: K26.9 - Duodenal ulcer, unspecified as acute or chronic, without hemorrhage or perforation SNOMED: 94312509 (4) Occult blood in stools ICD Codes: R19.5 - Other fecal abnormalities SNOMED: 16992891, 553732140 (5) Anemia ICD Codes: D64.9 - Anemia, unspecified SNOMED: 519747883 Qualifiers: Qualified Codes: D64.9 - Anemia, unspecified (6) G tube feedings ICD Codes: Z93.1 - Gastrostomy status SNOMED: 770775903, 779046082 (7) DM Status: stable Status Narrative Discussed with Dr. Brooks Assessment/Plan SUMMARY OF FINDINGS: 1. Erosive distal esophagitis. 2. Gastritis, status post biopsy. 3. Status post G-tube exchange. 4. Severe duodenitis with at least 3 ulcers in the duodenum. 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 I agree with the above findings, impression and plan. (Patient seen earlier today. Signature stamp does not reflect patient encounter time.). - Kentrell Brooks MD Subjective Subjective Limited Objective Last 24 Hour Vital Signs Date Time Temp Pulse Resp B/P (MAP) Pulse Ox O2 Delivery O2 Flow Rate FiO2 11/16/18 08:00 97.5 83 19 136/66 (89) 100 11/16/18 04:00 98.2 89 19 141/73 (95) 99 11/16/18 00:00 97.9 95 18 134/65 (88) 99 11/15/18 21:00 Room Air 11/15/18 20:00 96.8 79 16 143/68 (93) 99 11/15/18 16:00 97.2 83 20 147/73 (97) 98 Intake and Output 11/15/18 11/16/18 19:00 07:00 Intake Total 735 ml 1855 ml Output Total 700 ml Balance 735 ml 1155 ml Free Water 350 ml IV Total 75 ml 900 ml Tube Feeding 660 ml 605 ml Output Urine Total 700 ml # Bowel Movements 1 Laboratory Tests Test 11/16/18 08:35 White Blood Count 11.5 K/UL (4.8-10.8) H Red Blood Count 3.00 M/UL (4.70-6.10) L Hemoglobin 9.8 G/DL (14.2-18.0) L Hematocrit 27.7 % (42.0-52.0) L Mean Corpuscular Volume 92 FL (80-99) Mean Corpuscular Hemoglobin 32.7 PG (27.0-31.0) H Mean Corpuscular Hemoglobin Concent 35.4 G/DL (32.0-36.0) Red Cell Distribution Width 14.9 % (11.6-14.8) H Platelet Count 289 K/UL (150-450) Mean Platelet Volume 5.9 FL (6.5-10.1) L Neutrophils (%) (Auto) 84.6 % (45.0-75.0) H Lymphocytes (%) (Auto) 7.4 % (20.0-45.0) L Monocytes (%) (Auto) 5.9 % (1.0-10.0) Eosinophils (%) (Auto) 0.8 % (0.0-3.0) Basophils (%) (Auto) 1.2 % (0.0-2.0) Sodium Level 133 MMOL/L (136-145) L Potassium Level 5.2 MMOL/L (3.5-5.1) H Chloride Level 101 MMOL/L (98-107) Carbon Dioxide Level 23 MMOL/L (21-32) Anion Gap 9 mmol/L (5-15) Blood Urea Nitrogen 28 mg/dL (7-18) H Creatinine 1.5 MG/DL (0.55-1.30) H Estimat Glomerular Filtration Rate mL/min (>60) Glucose Level 138 MG/DL (74-106) H Calcium Level 8.4 MG/DL (8.5-10.1) L Magnesium Level 1.5 MG/DL (1.8-2.4) L Height (Feet): 5 Height (Inches): 8.00 Weight (Pounds): 121 General Appearance: WD/WN, no apparent distress, alert, thin Cardiovascular: normal rate Respiratory/Chest: normal breath sounds, no respiratory distress Abdominal Exam: normal bowel sounds, non tender, soft, GT site - Clean dry and intact Extremities: non-tender Supa Owens NP Nov 16, 2018 11:17
[2018-11-16 12:00] VITALS: BP 142/86
--- NOTE | 2018-11-16 15:57 | Diagnostic Imaging Report ---
Indication: Dyspnea Comparison: 11/11/2018 A single view chest radiograph was obtained. Findings: Basilar reticular densities likely fibrosis noted at the left lung base. Generalized interstitial prominence demonstrated once again. There is likely superimposed interstitial edema. Heart is enlarged. No significant change appreciated. IMPRESSION: Suspected CHF/interstitial edema. Suspected superimposed fibrosis within the lungs especially at the left lung base. No significant radiographic change from 11/11/2018
[2018-11-16 16:00] VITALS: BP 136/54
[2018-11-16] MEDS: Sodium Polystyrene Sulfonate 15gm Powder ORAL SCH (18:36)
[2018-11-16 20:00] VITALS: BP 104/69
[2018-11-17] VITALS: BP 142/67
[2018-11-17 04:00] VITALS: BP 151/71
[2018-11-17] MEDS: metroNIDAZOLE 500mg tab ORAL SCH ×3 (05:26→21:35)
[2018-11-17] MEDS: NovoLOG Insulin Flexpen SUBQ SCH ×4 (05:31→23:36)
[2018-11-17 07:09] LABS: BASOPHILS % (AUTO) 1.3 % (0.0-2.0); EOSINOPHILS % (AUTO) 0.9 % (0.0-3.0); HEMATOCRIT 27.9 % (42.0-52.0); LYMPHOCYTES % (AUTO) 8.7 % (20.0-45.0); MEAN CORPUSCULAR VOLUME 92 FL (80-99); MONOCYTES % (AUTO) 6.3 % (1.0-10.0); NEUTROPHILS % (AUTO) 82.9 % (45.0-75.0); PLATELET COUNT 336 K/UL (150-450); RED BLOOD COUNT 3.04 M/UL (4.70-6.10); RED CELL DISTRIBUTION WIDTH 14.8 % (11.6-14.8); WHITE BLOOD COUNT 12.2 K/UL (4.8-10.8)
[2018-11-17 07:22] LABS: ANION GAP 6 mmol/L (5-15); BLOOD UREA NITROGEN 27 mg/dL (7-18); CALCIUM 8.1 MG/DL (8.5-10.1); CARBON DIOXIDE 28 MMOL/L (21-32); CHLORIDE 101 MMOL/L (98-107); CREATININE 1.4 MG/DL (0.55-1.30); POTASSIUM 5.3 MMOL/L (3.5-5.1); SODIUM 135 MMOL/L (136-145)
[2018-11-17 08:00] VITALS: BP 144/74
[2018-11-17] MEDS ORDERED: Sodium Polystyrene Sulfonate 15gm Powder ORAL SCH ×2 (09:00→10:26)
[2018-11-17] MEDS: Sucralfate 1gm tab GT SCH ×4 (09:41→21:34)
[2018-11-17] MEDS: Heparin 5000 units/ml inj SUBQ SCH ×2 (09:43→21:35)
[2018-11-17] MEDS ORDERED: Sodium Polystyrene Sulfonate 15gm Powder ORAL ONE (10:30)
[2018-11-17] MEDS: Sodium Polystyrene Sulfonate 15gm Powder ORAL SCH (11:11)
--- NOTE | 2018-11-17 11:12 | General Progress Note ---
Assessment/Plan Assessment/Plan Urosepsis _ IV Abx Repeat K 5.2 despite Kayexalate. Interrogated RN . It was given last night. Needs higher dose! s/p GI Bleed - resolved , see previous notes. Subjective Allergies: Coded Allergies: No Known Allergies (Verified , 12/28/06) Subjective Nonverbal. Objective Last 24 Hour Vital Signs Date Time Temp Pulse Resp B/P (MAP) Pulse Ox O2 Delivery O2 Flow Rate FiO2 11/17/18 04:00 97.7 90 18 151/71 (97) 98 11/17/18 00:00 98.8 86 17 142/67 (92) 94 11/16/18 21:00 Room Air 11/16/18 20:00 98.6 84 17 104/69 (81) 96 11/16/18 16:00 98.1 76 18 136/54 (81) 97 11/16/18 12:00 97.7 86 20 142/86 (104) 96 Intake and Output 11/16/18 11/17/18 19:00 07:00 Intake Total 1105 ml 1630 ml Balance 1105 ml 1630 ml Free Water 220 ml 300 ml IV Total 775 ml 725 ml Tube Feeding 110 ml 605 ml # Voids 3 2 # Bowel Movements 3 1 Laboratory Tests 11/17/18 05:40: White Blood Count 12.2H, Red Blood Count 3.04L, Hemoglobin 10.0L, Hematocrit 27.9L, Mean Corpuscular Volume 92, Mean Corpuscular Hemoglobin 33.0H, Mean Corpuscular Hemoglobin Concent 35.9, Red Cell Distribution Width 14.8, Platelet Count 336, Mean Platelet Volume 6.0L, Neutrophils (%) (Auto) 82.9H, Lymphocytes (%) (Auto) 8.7L, Monocytes (%) (Auto) 6.3, Eosinophils (%) (Auto) 0.9, Basophils (%) (Auto) 1.3, Sodium Level 135L, Potassium Level 5.3H, Chloride Level 101, Carbon Dioxide Level 28, Anion Gap 6, Blood Urea Nitrogen 27H, Creatinine 1.4H, Estimat Glomerular Filtration Rate , Glucose Level 143H, Calcium Level 8.1L Height (Feet): 5 Height (Inches): 8.00 Weight (Pounds): 121 Objective Cachectic. CV RR Lungs CTA Abd SNT. BS + E No CCE Ann López MD Nov 17, 2018 11:12
[2018-11-17 12:00] VITALS: BP 136/72
--- NOTE | 2018-11-17 13:25 | GI Progress Note ---
Assessment/Plan Problems: (1) Coffee ground emesis ICD Codes: K92.0 - Hematemesis SNOMED: 95685871, 159808193 (2) Duodenitis ICD Codes: K29.80 - Duodenitis without bleeding SNOMED: 08126660 (3) Duodenal ulcer ICD Codes: K26.9 - Duodenal ulcer, unspecified as acute or chronic, without hemorrhage or perforation SNOMED: 80512809 (4) Occult blood in stools ICD Codes: R19.5 - Other fecal abnormalities SNOMED: 56894252, 014625659 (5) Anemia ICD Codes: D64.9 - Anemia, unspecified SNOMED: 937730436 Qualifiers: Qualified Codes: D64.9 - Anemia, unspecified (6) G tube feedings ICD Codes: Z93.1 - Gastrostomy status SNOMED: 458187451, 038346446 (7) DM Status: stable, unchanged Status Narrative Discussed with Dr. Brooks Assessment/Plan SUMMARY OF FINDINGS: 1. Erosive distal esophagitis. 2. Gastritis, status post biopsy. 3. Status post G-tube exchange. 4. Severe duodenitis with at least 3 ulcers in the duodenum. 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 I agree with the above findings, impression and plan. (Patient seen earlier today. Signature stamp does not reflect patient encounter time.). - Kentrell Brooks MD Subjective Subjective Limited Objective Last 24 Hour Vital Signs Date Time Temp Pulse Resp B/P (MAP) Pulse Ox O2 Delivery O2 Flow Rate FiO2 11/17/18 12:00 97.7 80 18 136/72 (93) 97 11/17/18 09:00 Room Air 11/17/18 08:00 98.1 88 18 144/74 (97) 98 11/17/18 04:00 97.7 90 18 151/71 (97) 98 11/17/18 00:00 98.8 86 17 142/67 (92) 94 11/16/18 21:00 Room Air 11/16/18 20:00 98.6 84 17 104/69 (81) 96 11/16/18 16:00 98.1 76 18 136/54 (81) 97 Intake and Output 11/16/18 11/17/18 19:00 07:00 Intake Total 1105 ml 1630 ml Balance 1105 ml 1630 ml Free Water 220 ml 300 ml IV Total 775 ml 725 ml Tube Feeding 110 ml 605 ml # Voids 3 2 # Bowel Movements 3 1 Laboratory Tests Test 11/17/18 05:40 White Blood Count 12.2 K/UL (4.8-10.8) H Red Blood Count 3.04 M/UL (4.70-6.10) L Hemoglobin 10.0 G/DL (14.2-18.0) L Hematocrit 27.9 % (42.0-52.0) L Mean Corpuscular Volume 92 FL (80-99) Mean Corpuscular Hemoglobin 33.0 PG (27.0-31.0) H Mean Corpuscular Hemoglobin Concent 35.9 G/DL (32.0-36.0) Red Cell Distribution Width 14.8 % (11.6-14.8) Platelet Count 336 K/UL (150-450) Mean Platelet Volume 6.0 FL (6.5-10.1) L Neutrophils (%) (Auto) 82.9 % (45.0-75.0) H Lymphocytes (%) (Auto) 8.7 % (20.0-45.0) L Monocytes (%) (Auto) 6.3 % (1.0-10.0) Eosinophils (%) (Auto) 0.9 % (0.0-3.0) Basophils (%) (Auto) 1.3 % (0.0-2.0) Sodium Level 135 MMOL/L (136-145) L Potassium Level 5.3 MMOL/L (3.5-5.1) H Chloride Level 101 MMOL/L (98-107) Carbon Dioxide Level 28 MMOL/L (21-32) Anion Gap 6 mmol/L (5-15) Blood Urea Nitrogen 27 mg/dL (7-18) H Creatinine 1.4 MG/DL (0.55-1.30) H Estimat Glomerular Filtration Rate mL/min (>60) Glucose Level 143 MG/DL (74-106) H Calcium Level 8.1 MG/DL (8.5-10.1) L Height (Feet): 5 Height (Inches): 8.00 Weight (Pounds): 121 General Appearance: no apparent distress Cardiovascular: normal rate Respiratory/Chest: normal breath sounds, no respiratory distress Abdominal Exam: normal bowel sounds, non tender, soft, GT site - Clean dry and intact Extremities: non-tender Supa Owens NP Nov 17, 2018 13:25
[2018-11-17 16:00] VITALS: BP 141/62
--- NOTE | 2018-11-17 16:08 | Infectious Diseases Prog Note ---
Assessment/Plan Assessment/Plan ASSESSMENT AND PLAN: 1. sepsis, possible peptostreptococcus bacteremia 10/02 bottles, uti, marcy/ fungal uti, leukocytosis, ? pna, c.diff. negative, surveillance blood cultures negative - rocephin iv and flagyl x 3 days - f/u on labs and chest x-ray - leukocytosis improved overall - monitor cr and labs - chest x-ray with chf/edema 2. The patient has acute kidney injury, elevated creatinine, likely chronic kidney disease. 3. Diabetes type 2. 4. Hypertension. 5. Blood sugar, blood pressure treatment per primary. 6. History of ESBL UTI. 7. Organic brain syndrome. 8. Esophagitis. 9. Anemia. 10. Past medical history noted. 11. No known drug allergies. 12. Social history negative. 13. Family history noncontributory. 14. MAR was noted. 15. Case discussed with RN. 16. Continue treatment per primary consultants. 17. Skin care protocol. 18. Wounds were noted. There are no acutely infected wounds. 19. Orders were noted and entered. 20. Notes and records were reviewed. 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 Subjective Constitutional: Reports: fatigue; Denies: fever HEENT: Denies: congestion Respiratory: Denies: shortness of breath Cardiovascular: Denies: chest pain Gastrointestinal/Abdominal: Denies: nausea, vomiting, diarrhea Genitourinary: Reports: other Neurologic: Reports: weakness; Denies: headache Psychiatric: Reports: other - na Skin: Denies: rash Hematologic: Denies: bleeding Musculoskeletal: Denies: pain Allergies: Coded Allergies: No Known Allergies (Verified , 12/28/06) Objective Vital Signs Last 24 Hour Vital Signs Date Time Temp Pulse Resp B/P (MAP) Pulse Ox O2 Delivery O2 Flow Rate FiO2 11/17/18 12:00 97.7 80 18 136/72 (93) 97 11/17/18 09:00 Room Air 11/17/18 08:00 98.1 88 18 144/74 (97) 98 11/17/18 04:00 97.7 90 18 151/71 (97) 98 11/17/18 00:00 98.8 86 17 142/67 (92) 94 11/16/18 21:00 Room Air 11/16/18 20:00 98.6 84 17 104/69 (81) 96 11/16/18 16:00 98.1 76 18 136/54 (81 97 Height (Feet): 5 Height (Inches): 8.00 Weight (Pounds): 121 General Appearance: no acute distress HEENT: normocephalic, atraumatic, anicteric, mucous membranes moist Respiratory/Chest: crackles/rales, rhonchi - bilaterally Cardiovascular: normal rate, regular rhythm, no gallop/murmur, no JVD Abdomen: normal bowel sounds, soft, non tender, no organomegaly, non distended Genitourinary: other - no bowden Extremities: no cyanosis Skin: no rash 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 Findings: Reticular densities are demonstrated at the left lung base and to some extent at the right lung base unchanged and chronic in nature. Borderline cardiomegaly demonstrated. Aorta is calcified. Bones are osteopenic. IMPRESSION: No change since the last exam 11/11/18 - chest x-ray - Comparison: 11/10/2018 Findings: And basilar atelectasis versus scarring, right upper lobe interstitial changes, left basilar reticular opacities are unchanged. Pleural spaces remain clear. No new infiltrates. Heart size is normal Impression: Unchanged, over one day, findings as above. Chest x-ray - 11/16/18 IMPRESSION: Suspected CHF/interstitial edema. Suspected superimposed fibrosis within the lungs especially at the left lung base. No significant radiographic change from 11/11/2018 Microbiology Date/Time Source Procedure Growth Status 11/10/18 13:00 Blood Blood Culture - Final NO GROWTH AFTER 5 DAYS Complete 11/04/18 01:40 Nasal Nares MRSA Culture - Final Staphylococcus Aureus - Mrsa Complete 11/10/18 07:00 Stool Clostridium difficile Toxin Assay - Final Complete 11/11/18 17:00 Urine,Clean Catch Urine Culture - Final NO GROWTH AFTER 48 HOURS Complete 11/04/18 01:40 Rectum - Final NO CARBAPENEM-RESISTANT ENTEROBACTERI... Complete Laboratory Tests Test 11/17/18 05:40 White Blood Count 12.2 K/UL (4.8-10.8) H Red Blood Count 3.04 M/UL (4.70-6.10) L Hemoglobin 10.0 G/DL (14.2-18.0) L Hematocrit 27.9 % (42.0-52.0) L Mean Corpuscular Volume 92 FL (80-99) Mean Corpuscular Hemoglobin 33.0 PG (27.0-31.0) H Mean Corpuscular Hemoglobin Concent 35.9 G/DL (32.0-36.0) Red Cell Distribution Width 14.8 % (11.6-14.8) Platelet Count 336 K/UL (150-450) Mean Platelet Volume 6.0 FL (6.5-10.1) L Neutrophils (%) (Auto) 82.9 % (45.0-75.0) H Lymphocytes (%) (Auto) 8.7 % (20.0-45.0) L Monocytes (%) (Auto) 6.3 % (1.0-10.0) Eosinophils (%) (Auto) 0.9 % (0.0-3.0) Basophils (%) (Auto) 1.3 % (0.0-2.0) Sodium Level 135 MMOL/L (136-145) L Potassium Level 5.3 MMOL/L (3.5-5.1) H Chloride Level 101 MMOL/L (98-107) Carbon Dioxide Level 28 MMOL/L (21-32) Anion Gap 6 mmol/L (5-15) Blood Urea Nitrogen 27 mg/dL (7-18) H Creatinine 1.4 MG/DL (0.55-1.30) H Estimat Glomerular Filtration Rate mL/min (>60) Glucose Level 143 MG/DL (74-106) H Calcium Level 8.1 MG/DL (8.5-10.1) L Current Medications Medications (Trade) Dose Ordered Sig/Jarrod Route PRN Reason Start Time Stop Time Status Last Admin Dose Admin Ceftriaxone Sodium 1 gm/ Dextrose 50 ml @ 100 mls/hr Q24H IVPB 11/11/18 00:00 11/18/18 00:00 11/16/18 23:39 Dextrose (Dextrose 50%) 25 ml Q30M PRN IV Hypoglycemia 11/09/18 15:30 12/04/18 07:29 Dextrose (Dextrose 50%) 50 ml Q30M PRN IV Hypoglycemia 11/09/18 15:30 12/04/18 07:29 Fenofibrate (Tricor) 134 mg DAILY ORAL 11/14/18 09:00 12/14/18 08:59 11/17/18 09:41 Heparin Sodium (Porcine) (Heparin 5000 units/ml) 5,000 units EVERY 12 HOURS SUBQ 11/09/18 21:00 12/04/18 08:59 11/17/18 09:43 Insulin Aspart (NovoLOG) Q6HR SUBQ 11/09/18 18:00 12/04/18 11:59 11/17/18 12:29 Lansoprazole (Prevacid) 30 mg EVERY 12 HOURS GT 11/11/18 21:00 12/11/18 20:59 11/17/18 09:41 Metronidazole (Flagyl) 500 mg EVERY 8 HOURS ORAL 11/13/18 22:00 11/20/18 21:59 11/17/18 14:30 Ondansetron HCl (Zofran) 4 mg Q6H PRN IVP Nausea & Vomiting 11/09/18 21:00 12/09/18 20:59 11/10/18 06:43 Sodium Polystyrene Sulfonate (Kayexalate) 30 gm DAILY ORAL 11/16/18 18:00 12/17/18 08:59 11/17/18 11:11 Sodium Chloride 1,000 ml @ 75 mls/hr [id number] IV 11/14/18 18:30 12/14/18 18:29 11/17/18 13:55 Sucralfate (Carafate) 1 gm FOUR TIMES A DAY GT 11/10/18 18:00 12/10/18 17:59 11/17/18 13:49 Wanda Sams MD Nov 17, 2018 16:08
[2018-11-17 20:00] VITALS: BP 149/68
[2018-11-18] VITALS: BP 159/81
[2018-11-18] MEDS ORDERED: cefTRIAXone 1 GM in D5W 50 ML IVPB SCH ×2
[2018-11-18 04:00] VITALS: BP 156/74
[2018-11-18] MEDS: metroNIDAZOLE 500mg tab ORAL SCH ×2 (06:17→14:12)
[2018-11-18] MEDS: NovoLOG Insulin Flexpen SUBQ SCH ×3 (06:21→18:00)
[2018-11-18 08:00] VITALS: BP 151/72
[2018-11-18 08:40] LABS: BASOPHILS % (AUTO) 1.1 % (0.0-2.0); EOSINOPHILS % (AUTO) 1.5 % (0.0-3.0); HEMATOCRIT 27.1 % (42.0-52.0); HEMOGLOBIN 9.8 G/DL (14.2-18.0); LYMPHOCYTES % (AUTO) 7.3 % (20.0-45.0); MEAN CORPUSCULAR VOLUME 90 FL (80-99); MONOCYTES % (AUTO) 8.5 % (1.0-10.0); NEUTROPHILS % (AUTO) 81.6 % (45.0-75.0); PLATELET COUNT 285 K/UL (150-450); RED BLOOD COUNT 3.01 M/UL (4.70-6.10); WHITE BLOOD COUNT 10.2 K/UL (4.8-10.8)
[2018-11-18 08:50] LABS: ANION GAP 8 mmol/L (5-15); BLOOD UREA NITROGEN 25 mg/dL (7-18); CALCIUM 7.6 MG/DL (8.5-10.1); CARBON DIOXIDE 27 MMOL/L (21-32); CHLORIDE 100 MMOL/L (98-107); CREATININE 1.4 MG/DL (0.55-1.30); POTASSIUM 4.8 MMOL/L (3.5-5.1); SODIUM 135 MMOL/L (136-145)
[2018-11-18] MEDS: Sucralfate 1gm tab GT SCH ×3 (09:17→18:00)
[2018-11-18] MEDS: Heparin 5000 units/ml inj SUBQ SCH (09:19)
--- NOTE | 2018-11-18 11:13 | GI Progress Note ---
Assessment/Plan Problems: (1) Coffee ground emesis ICD Codes: K92.0 - Hematemesis SNOMED: 94670238, 455272782 (2) Duodenitis ICD Codes: K29.80 - Duodenitis without bleeding SNOMED: 18441121 (3) Duodenal ulcer ICD Codes: K26.9 - Duodenal ulcer, unspecified as acute or chronic, without hemorrhage or perforation SNOMED: 42308592 (4) Occult blood in stools ICD Codes: R19.5 - Other fecal abnormalities SNOMED: 07303257, 918451427 (5) Anemia ICD Codes: D64.9 - Anemia, unspecified SNOMED: 381855874 Qualifiers: Qualified Codes: D64.9 - Anemia, unspecified (6) G tube feedings ICD Codes: Z93.1 - Gastrostomy status SNOMED: 087153818, 858144158 (7) DM Status: stable Status Narrative Discussed with Dr. Brooks Assessment/Plan SUMMARY OF FINDINGS: 1. Erosive distal esophagitis. 2. Gastritis, status post biopsy. 3. Status post G-tube exchange. 4. Severe duodenitis with at least 3 ulcers in the duodenum. 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 I agree with the above findings, impression and plan. (Patient seen earlier today. Signature stamp does not reflect patient encounter time.). - Kentrell Brooks MD Subjective Subjective Limited Objective Last 24 Hour Vital Signs Date Time Temp Pulse Resp B/P (MAP) Pulse Ox O2 Delivery O2 Flow Rate FiO2 11/18/18 09:00 Room Air 11/18/18 08:00 97.3 86 19 151/72 (98) 98 11/18/18 04:00 97.3 66 17 156/74 (101) 96 11/18/18 00:00 97.9 95 18 159/81 (107) 98 11/17/18 21:00 Room Air 11/17/18 20:00 98.3 90 17 149/68 (95) 100 11/17/18 16:00 97.7 78 18 141/62 (88) 88 11/17/18 12:00 97.7 80 18 136/72 (93) 97 Intake and Output 11/17/18 11/18/18 19:00 07:00 Intake Total 1485 ml 1605 ml Balance 1485 ml 1605 ml Free Water 300 ml 200 ml IV Total 525 ml 800 ml Tube Feeding 660 ml 605 ml # Voids 8 2 # Bowel Movements 1 Laboratory Tests Test 11/18/18 07:55 White Blood Count 10.2 K/UL (4.8-10.8) Red Blood Count 3.01 M/UL (4.70-6.10) L Hemoglobin 9.8 G/DL (14.2-18.0) L Hematocrit 27.1 % (42.0-52.0) L Mean Corpuscular Volume 90 FL (80-99) Mean Corpuscular Hemoglobin 32.6 PG (27.0-31.0) H Mean Corpuscular Hemoglobin Concent 36.2 G/DL (32.0-36.0) H Red Cell Distribution Width 15.0 % (11.6-14.8) H Platelet Count 285 K/UL (150-450) Mean Platelet Volume 5.8 FL (6.5-10.1) L Neutrophils (%) (Auto) 81.6 % (45.0-75.0) H Lymphocytes (%) (Auto) 7.3 % (20.0-45.0) L Monocytes (%) (Auto) 8.5 % (1.0-10.0) Eosinophils (%) (Auto) 1.5 % (0.0-3.0) Basophils (%) (Auto) 1.1 % (0.0-2.0) Sodium Level 135 MMOL/L (136-145) L Potassium Level 4.8 MMOL/L (3.5-5.1) Chloride Level 100 MMOL/L (98-107) Carbon Dioxide Level 27 MMOL/L (21-32) Anion Gap 8 mmol/L (5-15) Blood Urea Nitrogen 25 mg/dL (7-18) H Creatinine 1.4 MG/DL (0.55-1.30) H Estimat Glomerular Filtration Rate mL/min (>60) Glucose Level 147 MG/DL (74-106) H Calcium Level 7.6 MG/DL (8.5-10.1) L Height (Feet): 5 Height (Inches): 8.00 Weight (Pounds): 137 General Appearance: WD/WN, no apparent distress, alert Cardiovascular: normal rate Respiratory/Chest: normal breath sounds, no respiratory distress Abdominal Exam: normal bowel sounds, non tender, soft, GT site - Clean dry and intact Extremities: non-tender Supa Owens NP Nov 18, 2018 11:13
[2018-11-18 12:00] VITALS: BP 161/78
--- NOTE | 2018-11-18 13:35 | General Progress Note ---
Assessment/Plan Assessment/Plan Urosepsis _ IV Abx Repeat K 4.8 on high-dose Kayexalate. It was given last night. DC to SNF s/p GI Bleed - resolved , see previous notes. Subjective Allergies: Coded Allergies: No Known Allergies (Verified , 12/28/06) Subjective Nonverbal. Objective Last 24 Hour Vital Signs Date Time Temp Pulse Resp B/P (MAP) Pulse Ox O2 Delivery O2 Flow Rate FiO2 11/18/18 12:00 97.4 91 20 161/78 (105) 97 11/18/18 09:00 Room Air 11/18/18 08:00 97.3 86 19 151/72 (98) 98 11/18/18 04:00 97.3 66 17 156/74 (101) 96 11/18/18 00:00 97.9 95 18 159/81 (107) 98 11/17/18 21:00 Room Air 11/17/18 20:00 98.3 90 17 149/68 (95) 100 11/17/18 16:00 97.7 78 18 141/62 (88) 88 Intake and Output 11/17/18 11/18/18 19:00 07:00 Intake Total 1485 ml 1660 ml Balance 1485 ml 1660 ml Free Water 300 ml 200 ml IV Total 525 ml 800 ml Tube Feeding 660 ml 660 ml # Voids 8 2 # Bowel Movements 1 Laboratory Tests 11/18/18 07:55: White Blood Count 10.2, Red Blood Count 3.01L, Hemoglobin 9.8L, Hematocrit 27.1L , Mean Corpuscular Volume 90, Mean Corpuscular Hemoglobin 32.6H, Mean Corpuscular Hemoglobin Concent 36.2H, Red Cell Distribution Width 15.0H, Platelet Count 285, Mean Platelet Volume 5.8L, Neutrophils (%) (Auto) 81.6H, Lymphocytes (%) (Auto) 7.3L, Monocytes (%) (Auto) 8.5, Eosinophils (%) (Auto) 1.5, Basophils (%) (Auto) 1.1, Sodium Level 135L, Potassium Level 4.8, Chloride Level 100, Carbon Dioxide Level 27, Anion Gap 8, Blood Urea Nitrogen 25H, Creatinine 1.4H, Estimat Glomerular Filtration Rate , Glucose Level 147H, Calcium Level 7.6L Height (Feet): 5 Height (Inches): 8.00 Weight (Pounds): 137 Objective Cachectic. CV RR Lungs CTA Abd SNT. BS + E No CCE Ann López MD Nov 18, 2018 13:35
[2018-11-18] MEDS ORDERED: KALEXATE15 GM ORAL (13:41)
[2018-11-18] MEDS ORDERED: NOVOLOG100 UNITS1 SUBQ (13:41)
[2018-11-18] MEDS ORDERED: CARAFATE1 G1 GT (13:41)
[2018-11-18] MEDS ORDERED: HEPARIN SO5000 UNIT2 SUBQ (13:41)
[2018-11-18] MEDS ORDERED: FENOFIBRATE 13134 MG ORAL (13:41)
[2018-11-18] MEDS ORDERED: LANSOPRAZOLE30 MG GT (13:41)
[2018-11-18] MEDS ORDERED: FLAGYL500 MG ORAL (13:41)
[2018-11-18] MEDS: Sodium Polystyrene Sulfonate 15gm Powder ORAL SCH (14:06)
[2018-11-18 16:00] VITALS: BP 154/90
--- NOTE | 2018-11-19 13:13 | Discharge Summary ---
Discharge Summary Discharge Summary _ DATE OF ADMISSION: 11/04/2018 DATE OF DISCHARGE: 11/18/2018 DISCHARGED BY: Dr. Ann López CONSULTANTS: Dr. Wanda Brooks BRIEF HOSPITAL COURSE: Patient is an 82-year-old [place] male, from [facility]. He was noted to have elevated BUN. He was sent to the hospital for further evaluation. He has medical history significant for type 2 diabetes mellitus, multiple admissions with volume depletion, renal failure, recurrent urosepsis, organic brain syndrome and recurrent gastroesophagitis. On evaluation at ED, patient had low-grade fever. Blood work showed WBC of 14, hemoglobin 10, hematocrit 31. Sodium was 158, chloride 116. BUN was 108, creatinine 2.6. Urinalysis showed 3+ protein, 4+ blood, negative nitrite, 2+ leukocyte esterase, 10-15 RBC, too many to count WBC. Chest x-ray showed right middle lobe infiltrate. He was given cefepime and Levaquin. Flagyl was added for aspiration pneumonia. Patient had a history of ESBL E. coli in the past. He was given Zosyn. He was then admitted for evaluation of recurrent sepsis, extreme volume depletion, and renal failure. He was placed on n.p.o. He was given IV hydration. ID was consulted for antibiotic management. He was continued on Zosyn as patient was at risk for community-acquired and aspiration pneumonia. Diflucan was added. Blood culture showed gram-positive cocci. Vancomycin was added. Repeat blood culture was done. He came in with stage II sacral and lower medial back ulcer and stage I on bilateral heels. He was given wound care. WBC went up to 26.6. Antibiotics were changed to Rocephin, Flagyl, p.o. and IV vancomycin. GI was consulted for evaluation of coffee-ground emesis. There was evidence of anemia and stool OB positive. Tube feeding was placed on hold. He was given H2 blockers. Hemoglobin dropped to 7.4, hematocrit 22. He was given 1 unit packed RBC blood transfusion. On November 11, 2018, he underwent upper GI endoscopy. Findings showed erosive distal esophagitis, gastritis and severe duodenitis with at least 3 cm of ulceration. He underwent G-tube exchange. He was started on PPI and Carafate. He was started on G-tube feeding. Triglycerides was elevated to 1140. He was started on TriCor. Patient had a history of hypertriglyceride induced pancreatitis. Azotemia worsened. He was restarted on IV fluids. Potassium levels were elevated. He was given Kayexalate. Repeat surveillance blood culture did not isolate any growth. C. difficile was negative. Repeat urine culture was negative. Hemoglobin was stable. Leukocytosis resolved. He was eventually discharged back to [facility]. FINAL DIAGNOSES: Sepsis, possible Peptostreptococcus bacteremia, fungal UTI, pneumonia Hyperkalemia Drop in hemoglobin requiring blood transfusion Acute kidney injury Anemia due to GI bleed Erosive distal esophagitis Gastritis Severe duodenitis/duodenal ulcer Status post EGD with G-tube exchange 11/11/2018 Diabetes mellitus type 2 Hypertension Hypertriglyceridemia Stage II ulcer on sacral and lower medial back, present on admission Stage 1 on bilateral heel, present on admission DISPOSITION: Patient was discharged to a SNF. DISCHARGE MEDICATIONS: Refer to Discharge Medication List. I have been assigned to complete a discharge summary on this account, I was not involved with the patient's management. Dulce Gonzalez NP Nov 19, 2018 13:13
== END 2018-11-18 18:19 | DRG 871 ==
LOC: EDBD 23:27 → EDUNIT# 23:27 → EMR 23:41 → 2E 11-04 00:28 → EDBEDREQ 11-04 00:45 → 4E 11-09 15:22
PROC: 0DB78ZX Excision of Stomach, Pylorus, Via Natural or Artificial Opening Endoscopic, Diagnostic (ICD-10-PCS; principal; 2018-11-11 12:08)
DX: A40.8 Other streptococcal sepsis (principal); J18.9 Pneumonia, unspecified organism; N17.9 Acute kidney failure, unspecified; N39.0 Urinary tract infection, site not specified; B49 Unspecified mycosis; E87.0 Hyperosmolality and hypernatremia; N30.00 Acute cystitis without hematuria; K92.0 Hematemesis; F09 Unspecified mental disorder due to known physiological condition; E11.9 Type 2 diabetes mellitus without complications; E87.5 Hyperkalemia; R80.9 Proteinuria, unspecified; I12.9 Hypertensive chronic kidney disease with stage 1 through stage 4 chronic kidney disease, or unspecified chronic kidney disease; E11.22 Type 2 diabetes mellitus with diabetic chronic kidney disease; N18.9 Chronic kidney disease, unspecified; K29.80 Duodenitis without bleeding; K20.9 Esophagitis, unspecified; K29.70 Gastritis, unspecified, without bleeding; L89.152 Pressure ulcer of sacral region, stage 2; L89.621 Pressure ulcer of left heel, stage 1; L89.611 Pressure ulcer of right heel, stage 1; D50.0 Iron deficiency anemia secondary to blood loss (chronic)
CPT/HCPCS: 36415; 71045; 80048; 80053; 80061; 80202; 81001; 81003; 82270; 82550; 82553; 82962; 83036; 83605; 83735; 83970; 84100; 84484; 85007; 85025; 85610; 85730; 86710; 86850; 86900; 86901; 86920; 87040; 87081; 87086; 87324; 93005; 94003; 94150; 96365; 96367; 96368; 99291; J1815; J2405

== ENCOUNTER 2018-12-22 13:49 | Inpatient (IN) | payer MEDICARE, OTHER ==
[~2018-12-22] VITALS: Ht 172.7 cm; Wt 71.7 kg
[~2018-12-22 13:49] MED LIST changes: +DOCUSATE SODIU100 MG PO; +FLAGYL500 MG ORAL; +GERI-KOT8.6 MG GT; +GLUCERNA 1.5 C237 ML GT; +KALEXATE15 GM ORAL; +MILK OF MA400 MG/51 GT
[2018-12-22 13:52] VITALS: BP 149/49
--- NOTE | 2018-12-22 13:52 | NUR ---
ED Nurse Note: brought in by JAVIER from [facility] due to abnormal lab of BUN 89. A/Ox2. Denies any pain.
--- NOTE | 2018-12-22 14:14 | Emergency Room Report ---
History of Present Illness General Chief Complaint: Abnormal Labs Source: Patient, Medical Record Present Illness HPI 82-year-old male coming from the [facility] with a past medical history of diabetes, renal failure, dementia, gastroesophagitis, presenting with high BUN. Patient is currently awake alert oriented 2, likely confuse, not complaining of any pain. He does have a G-tube, but states that he does eat and drink by mouth. He is not complaining of any chest pain shortness breath or any abdominal pain. Upon review of charts he was admitted from November 04 to November 18 of this year,for dehydration and increased BUN. He also was found to have a low hemoglobin, so one unit of PRBCs was given. This was secondary to upper GI bleeding, he had an upper endoscopy that showed erosive distal esophagitis and gastritis. With ulcerations. At that time he had a G-tube exchange. 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 Review of Systems All Other Systems: negative except mentioned in HPI Physical Exam Vital Signs Date Time Temp Pulse Resp B/P (MAP) Pulse Ox O2 Delivery O2 Flow Rate FiO2 12/22/18 13:49 98.4 99 20 129/73 97 Room Air Sp02 EP Interpretation: reviewed, normal General Appearance: other - Elderly male who is awake alert, smiling, conversing, although confused, not in any distress Head: normocephalic, atraumatic Eyes: bilateral eye normal inspection, bilateral eye PERRL, bilateral eye EOMI ENT: normal voice, dry mucus membranes Neck: normal inspection, full range of motion, supple Respiratory: normal inspection, lungs clear, normal breath sounds, no respiratory distress, no retraction, no wheezing, speaking full sentences, chest symmetrical Cardiovascular #1: normal inspection, regular rate, rhythm, no edema, normal capillary refill Cardiovascular #2: 2+ radial (R), 2+ radial (L) Gastrointestinal: other - G-tube in place, nontender entire abdomen with normal bowel sounds Genitourinary: no CVA tenderness Musculoskeletal: normal inspection, back normal, normal range of motion, non- tender Neurologic: alert, other - Contracted lower extremities, contracted right upper hand. Psychiatric: normal inspection, judgement/insight normal, memory normal Skin: normal inspection, normal color, no rash, warm/dry, well hydrated, normal turgor Medical Decision Making Diagnostic Impression: Primary Impression: Renal insufficiency ER Course 80-year-old male brought in for abnormal labs, high BUN DDX: Dehydration, renal failure. Also has history of anemia Plan: Obtain labs, ua, EKG, CXR ER course: Patient has been monitored during ED stay, HD stable given fluids Disposition: Patient is to be admitted to med surg D/W hospitalist Dr stewart Please note that this Emergency Department Report was dictated using REBIScancompliance review specialist technology software, occasionally this can lead to erroneous entry secondary to interpretation by the dictation equipment. EKG Diagnostic Results EP Interpretation: Yes Rate: normal Rhythm: NSR ST Segments: T-wave inversions noted in V2 and V3. Right bundle-branch block. ASA given to patient: No Rhythm Strip EP Interpretation: Yes Rate: 100 Rhythm: NSR, no PVCs, no ectopy Chest X-ray CXR: Ordered: Yes 1 view Indication: Pain EP interpretation: Yes Interpretation: No consolidation, no effusion, no PTX, no acute cardiopulmonary disease Impression: No acute disease Electronically signed by Artem Peters MD Laboratory Tests Test 12/22/18 14:10 12/22/18 14:50 White Blood Count 15.7 K/UL (4.8-10.8) H Red Blood Count 3.50 M/UL (4.70-6.10) L Hemoglobin 11.2 G/DL (14.2-18.0) L Hematocrit 34.3 % (42.0-52.0) L Mean Corpuscular Volume 98 FL (80-99) Mean Corpuscular Hemoglobin 31.9 PG (27.0-31.0) H Mean Corpuscular Hemoglobin Concent 32.6 G/DL (32.0-36.0) Red Cell Distribution Width 14.2 % (11.6-14.8) Platelet Count 337 K/UL (150-450) Mean Platelet Volume 6.6 FL (6.5-10.1) Neutrophils (%) (Auto) 83.2 % (45.0-75.0) H Lymphocytes (%) (Auto) 9.8 % (20.0-45.0) L Monocytes (%) (Auto) 3.7 % (1.0-10.0) Eosinophils (%) (Auto) 2.4 % (0.0-3.0) Basophils (%) (Auto) 0.8 % (0.0-2.0) Prothrombin Time 10.7 SEC (9.30-11.50) Prothrombin Time INR 1.0 (0.9-1.1) PTT 30 SEC (23-33) Sodium Level 149 MMOL/L (136-145) H Potassium Level 4.8 MMOL/L (3.5-5.1) Chloride Level 106 MMOL/L (98-107) Carbon Dioxide Level 31 MMOL/L (21-32) Anion Gap 12 mmol/L (5-15) Blood Urea Nitrogen 86 mg/dL (7-18) H Creatinine 2.5 MG/DL (0.55-1.30) H Estimate Glomerular Filtration Rate mL/min (>60) Glucose Level 183 MG/DL (74-106) H Lactic Acid Level 0.70 mmol/L (0.4-2.0) Calcium Level 9.7 MG/DL (8.5-10.1) Total Bilirubin 0.4 MG/DL (0.2-1.0) Aspartate Amino Transferase (AST) 32 U/L (15-37) Alanine Aminotransferase (ALT) 25 U/L (12-78) Alkaline Phosphatase 53 U/L (46-116) Troponin I 0.000 ng/mL (0.000-0.056) Pro-B-Type Natriuretic Peptide Pending Total Protein 10.0 G/DL (6.4-8.2) H Albumin 3.4 G/DL (3.4-5.0) Globulin 6.6 g/dL Albumin/Globulin Ratio 0.5 (1.0-2.7) L Urine Color Pale yellow Urine Appearance Slightly cloudy Urine pH 9 (4.5-8.0) Urine Specific [place] 1.010 (1.005-1.035) Urine Protein 3+ (NEGATIVE) H Urine Glucose (UA) Negative (NEGATIVE) Urine Ketones Negative (NEGATIVE) Urine Blood 5+ (NEGATIVE) H Urine Nitrite Negative (NEGATIVE) Urine Bilirubin Negative (NEGATIVE) Urine Urobilinogen Normal MG/DL (0.0-1.0) Urine Leukocyte Esterase 2+ (NEGATIVE) H Urine RBC Pending Urine WBC Pending Urine Squamous Epithelial Cells Pending Urine Bacteria Pending Last Vital Signs Date Time Temp Pulse Resp B/P (MAP) Pulse Ox O2 Delivery O2 Flow Rate FiO2 12/22/18 13:49 98.4 99 20 129/73 97 Room Air Disposition: ADMITTED INPATIENT Condition: Serious rAtem Peters M.D. Dec 22, 2018 14:14
[2018-12-22 14:45] LABS: BASOPHILS % (AUTO) 0.8 % (0.0-2.0); EOSINOPHILS % (AUTO) 2.4 % (0.0-3.0); HEMATOCRIT 34.3 % (42.0-52.0); HEMOGLOBIN 11.2 G/DL (14.2-18.0); LYMPHOCYTES % (AUTO) 9.8 % (20.0-45.0); MEAN CORPUSCULAR VOLUME 98 FL (80-99); MONOCYTES % (AUTO) 3.7 % (1.0-10.0); NEUTROPHILS % (AUTO) 83.2 % (45.0-75.0); PLATELET COUNT 337 K/UL (150-450); RED CELL DISTRIBUTION WIDTH 14.2 % (11.6-14.8); WHITE BLOOD COUNT 15.7 K/UL (4.8-10.8)
[2018-12-22] MEDS ORDERED: FENOFIBRATE130 MG GT (15:09)
[2018-12-22 15:14] LABS: ANION GAP 12 mmol/L (5-15); BLOOD UREA NITROGEN 86 mg/dL (7-18); CALCIUM 9.7 MG/DL (8.5-10.1); CARBON DIOXIDE 31 MMOL/L (21-32); CHLORIDE 106 MMOL/L (98-107); CREATININE 2.5 MG/DL (0.55-1.30); POTASSIUM 4.8 MMOL/L (3.5-5.1); SODIUM 149 MMOL/L (136-145)
[2018-12-22 15:21] LABS: ALANINE AMINOTRANSFERASE 25 U/L (12-78); ALBUMIN 3.4 G/DL (3.4-5.0); ALBUMIN/GLOBULIN RATIO 0.5 (1.0-2.7); ALKALINE PHOSPHATASE 53 U/L (46-116); ASPARTATE AMINO TRANSFERASE 32 U/L (15-37); BILIRUBIN,TOTAL 0.4 MG/DL (0.2-1.0)
[2018-12-22 15:32] LABS: APPEARANCE,URINE SLIGHTLY CLOUDY; BILIRUBIN, URINE NEGATIVE (NEGATIVE); COLOR,URINE PALE YELLOW; GLUCOSE, URINE (UA) NEGATIVE (NEGATIVE); KETONES,URINE NEGATIVE (NEGATIVE); LEUKOCYTE ESTERASE ,URINE 2+ (NEGATIVE); NITRITE,URINE NEGATIVE (NEGATIVE); PH,URINE 9 (4.5-8.0); PROTEIN,URINE 3+ (NEGATIVE); UROBILINOGEN,URINE NORMAL MG/DL (0.0-1.0)
--- NOTE | 2018-12-22 16:04 | NUR ---
ED Nurse Note: VRE/CRE/MRSA SENT DOWN TO THE LAB.
--- NOTE | 2018-12-22 16:30 | NUR ---
ED Nurse Note: MUSTAPHA MESSINA, SURINDER AND DR. NORMAN ARE AWARE OF WBC. NO NEW ORDER RECEIVED AT THIS TIME.
--- NOTE | 2018-12-22 16:35 | NUR ---
ED Nurse Note: ATTEMPTED TO GIVE TELEPHONE REPORT TO 42. UNABLE TO RECEIVE REPORT AT THIS TIME. WILL CALL BACK IN 10 MIN Addendum: 12/22/18 at 1652 by [email or web address] ED Nurse Note: ATTEMPTED TO GIVE TELEPHONE REPORT TO 4E. UNABLE TO RECEIVE REPORT AT THIS TIME. WILL CALL BACK IN 10 MIN
--- NOTE | 2018-12-22 16:52 | NUR ---
ED Nurse Note: ATTEMPTED TO GIVE TELEPHONE REPORT TO 4E. PER 4E, RECEIVING RN IS DISCHARGING A PT SO NEED 10 MORE MIN TO RECEIVE REPORT. NOTIFIED CN. GABI WILL CALL BACK IN 10 MIN.
[2018-12-22 17:14] VITALS: BP 133/59
--- NOTE | 2018-12-22 17:14 | NUR ---
ED Nurse Note: TELEPHONE REPORT GIVEN TO JORGE HEBERT. WILL TRANSFER THE PT UP SOON. VSS.
--- NOTE | 2018-12-22 17:40 | NUR ---
TRANSFER TO FLOOR: Patient transferred to #[id number] as ordered via [facility] with JORGE Avitia. Report given to JORGE Mcwilliams. Belongings given to pt. No s/s of distress. GT intact. Picture taken for sacral and left heel. No open wound noted. A/Ox2. No s/s of distress. VSS.
--- NOTE | 2018-12-22 17:50 | NUR ---
NURSE NOTES: Patient arrived the [facility] around 174, vitals taken upon arrived to the unit; pictures taken on sacral and both heels; G-tube in place; patient is confused, side rails up, breaks engaged; bed at lowest position; will keep monitoring.
[2018-12-22] MEDS ORDERED: KALEXATE15 GM GT (17:56)
[2018-12-22] MEDS ORDERED: CARAFATE1 G1 GT (17:57)
[2018-12-22] MEDS ORDERED: FENOFIBRATE134 M1 GT (17:59)
--- NOTE | 2018-12-22 18:00 | NUR ---
NURSE NOTES: I called Dr López to get admission order, will keep trying.
[2018-12-22] MEDS ORDERED: NOVOLOG100 UNITS1 SUBQ (18:02)
[2018-12-22 18:08] VITALS: BP 133/76
[2018-12-22] MEDS ORDERED: GLUCERNA 1.5 C237 ML GT (18:16)
--- NOTE | 2018-12-22 19:07 | NUR ---
CASE MANAGEMENT: INITIAL REVIEW 83 YO M YUVAL FROM [facility] CC: ELEVATED BUN PMHx: DM. RENAL FAILURE. DEMENTIA. GTUBE. SI:DEHYDRATION. T 98.4 HR 99 RR 20 B/P 129/73 SATS 97% ON RA WBC 15.7 NA 149 BUN 86 CR 2.5 GLU 183 BNP 1097 IS: NS BOLUS X1 PATIENT ADMITTED TO MED/SURG 12/22/2018 @ 4471 DCP: PATIENT TO BE DISCHARGED TO SNF ONCE MEDICALLY CLEARED. Addendum: 12/22/18 at 1944 by June Darby CM INTERQUAL
--- NOTE | 2018-12-22 19:17 | Diagnostic Imaging Report ---
Indication: Dyspnea Comparison: 11/16/2018 A single view chest radiograph was obtained. Findings: Prominent reticular markings at the left lung base likely fibrosis. This is unchanged. Heart size is within normal limits on the current exam. Bones are osteopenic. IMPRESSION: No acute findings
[2018-12-22 20:00] VITALS: BP 133/68
--- NOTE | 2018-12-22 20:00 | NUR ---
NURSE NOTES: Pt is in bed, awake and verbal. Pt received from Domingo Gardner Pt is a new admit.No acute distress noted.Dr. Disla called and gave admission orders. Admission orders entered and acknowledged. Pt is bed bound and incontinentX2. Room air. Skin intact, old healed scar on sacral site, Optifoam applied as preventative measure. Pt had a loose BM, stool sent for c.diff. Pt was cleaned and linen changed. Bed low in position,side rails up and call light within reach. Pt is instructed to call for assistance before getting out of bed. Fall precaution in place. Bed alarm on.
--- NOTE | 2018-12-22 20:04 | NUR ---
HAND-OFF: Report given to JORGE Jones.
[2018-12-22] MEDS: Heparin 5000 units/ml inj SUBQ SCH (23:01)
[2018-12-23] VITALS (7 sets, daily range): BP systolic 126–142; BP diastolic 57–72
[2018-12-23 07:23] LABS: BASOPHILS % (AUTO) 0.7 % (0.0-2.0); EOSINOPHILS % (AUTO) 2.6 % (0.0-3.0); HEMATOCRIT 27.9 % (42.0-52.0); HEMOGLOBIN 8.8 G/DL (14.2-18.0); MEAN CORPUSCULAR VOLUME 97 FL (80-99); MONOCYTES % (AUTO) 6.6 % (1.0-10.0); NEUTROPHILS % (AUTO) 79.1 % (45.0-75.0); PLATELET COUNT 280 K/UL (150-450); RED BLOOD COUNT 2.87 M/UL (4.70-6.10); RED CELL DISTRIBUTION WIDTH 13.8 % (11.6-14.8); WHITE BLOOD COUNT 13.4 K/UL (4.8-10.8)
--- NOTE | 2018-12-23 07:30 | NUR ---
HAND-OFF: Report given to Anahi Howe RN.Informed Anahi to get Accu check and insulin orders from Dr. Disla.
[2018-12-23 07:45] LABS: ANION GAP 10 mmol/L (5-15); BLOOD UREA NITROGEN 74 mg/dL (7-18); CALCIUM 9.2 MG/DL (8.5-10.1); CARBON DIOXIDE 30 MMOL/L (21-32); CHLORIDE 111 MMOL/L (98-107); CREATININE 2.1 MG/DL (0.55-1.30); POTASSIUM 3.7 MMOL/L (3.5-5.1); SODIUM 151 MMOL/L (136-145)
--- NOTE | 2018-12-23 08:01 | NUR ---
NURSE NOTES: Patient alert to name,respirations unlabored,IV fluids infusing as ordered,patient resting at this time,call light within reach,G-tube is clamped,patient is NPO as ordered.
[2018-12-23] MEDS: Heparin 5000 units/ml inj SUBQ SCH ×2 (10:36→22:23)
--- NOTE | 2018-12-23 15:04 | Cardiology Report ---
APPROVED REPORT EKG Measurement Heart [id number] CT 182P32 [id number] Normal sinus rhythm Possible Left atrial enlargement RBBB ST elevation, consider early repolarization, pericarditis, or injury T wave abnormality, consider anterior ischemia Prolonged QT Abnormal ECG
--- NOTE | 2018-12-23 17:00 | Infectious Diseases Prog Note ---
Assessment/Plan Assessment/Plan Full consult dictated: A) 1) possible sepsis, uti, leukocytosis, ams, sirs + 2) pmh noted 3) allergies - nkda P) 1) zosyn 2) check cultures, labs and chest x-ray 3) thank you Subjective Allergies: Coded Allergies: No Known Allergies (Verified , 12/28/06) Objective Vital Signs Last 24 Hour Vital Signs Date Time Temp Pulse Resp B/P (MAP) Pulse Ox O2 Delivery O2 Flow Rate FiO2 12/23/18 16:00 98.2 93 19 131/69 (89) 93 12/23/18 12:00 96.6 90 18 126/67 (86) 99 12/23/18 09:00 Room Air 12/23/18 08:00 97.5 91 14 140/71 (94) 12/23/18 04:00 98.2 92 20 137/72 (93) 100 12/23/18 00:00 97.3 96 20 139/65 (89) 100 12/22/18 21:00 Room Air 12/22/18 20:00 97.8 100 18 133/68 (89) 100 98 12/22/18 18:17 Room Air 12/22/18 18:08 98.1 100 18 133/76 (95) 100 12/22/18 17:40 98.4 97 24 133/59 100 Room Air 12/22/18 17:14 98.4 97 24 133/59 100 Room Air Height (Feet): 5 Height (Inches): 8.00 Weight (Pounds): 158 Microbiology Date/Time Source Procedure Growth Status 12/22/18 20:00 Stool Clostridium difficile Toxin Assay - Final Complete 12/22/18 14:50 Urine,Clean Catch Urine Culture - Preliminary NO GROWTH Resulted 12/22/18 15:50 Rectum Received Laboratory Tests Test 12/23/18 06:56 White Blood Count 13.4 K/UL (4.8-10.8) H Red Blood Count 2.87 M/UL (4.70-6.10) L Hemoglobin 8.8 G/DL (14.2-18.0) L Hematocrit 27.9 % (42.0-52.0) L Mean Corpuscular Volume 97 FL (80-99) Mean Corpuscular Hemoglobin 30.7 PG (27.0-31.0) Mean Corpuscular Hemoglobin Concent 31.5 G/DL (32.0-36.0) L Red Cell Distribution Width 13.8 % (11.6-14.8) Platelet Count 280 K/UL (150-450) Mean Platelet Volume 6.5 FL (6.5-10.1) Neutrophils (%) (Auto) 79.1 % (45.0-75.0) H Lymphocytes (%) (Auto) 11.0 % (20.0-45.0) L Monocytes (%) (Auto) 6.6 % (1.0-10.0) Eosinophils (%) (Auto) 2.6 % (0.0-3.0) Basophils (%) (Auto) 0.7 % (0.0-2.0) Sodium Level 151 MMOL/L (136-145) H Potassium Level 3.7 MMOL/L (3.5-5.1) Chloride Level 111 MMOL/L (98-107) H Carbon Dioxide Level 30 MMOL/L (21-32) Anion Gap 10 mmol/L (5-15) Blood Urea Nitrogen 74 mg/dL (7-18) H Creatinine 2.1 MG/DL (0.55-1.30) H Estimat Glomerular Filtration Rate mL/min (>60) Glucose Level 165 MG/DL (74-106) H Calcium Level 9.2 MG/DL (8.5-10.1) Current Medications Medications (Trade) Dose Ordered Sig/Jarrod Route PRN Reason Start Time Stop Time Status Last Admin Dose Admin Dextrose 1,000 ml @ 125 mls/hr Q8H IV 12/23/18 12:35 01/22/19 12:34 12/23/18 13:48 Heparin Sodium (Porcine) (Heparin 5000 units/ml) 5,000 units EVERY 12 HOURS SUBQ 12/22/18 21:00 01/21/19 20:59 12/23/18 10:36 Wanda Sams MD Dec 23, 2018 17:00
--- NOTE | 2018-12-23 18:53 | NUR ---
NURSE NOTES: Patient resting,turned and position,skin care given,IV fluids continue to infuse,patient is NPO.G tube clamped.
--- NOTE | 2018-12-23 19:15 | History and Physical Report ---
DATE OF ADMISSION: 12/22/2018 CHIEF COMPLAINT: Abnormal lab results. HISTORY OF PRESENT ILLNESS: This is an 83-year-old [place] male from [facility]. The patient has gradually increasing BUN, creatinine, and sodium level. Finally, the patient was referred to the emergency department. The patient has multiple cycles of repeated admissions due to this reason. The patient is demented and unable to give any further information. PAST MEDICAL HISTORY: 1. Chronic kidney disease. 2. Recurrent acute renal failure. 3. Recurrent aspiration episodes. 4. Chronic hyperkalemia, on Kayexalate. 5. Recurrent gastroesophagitis. 6. Recurrent multidrug resistant urinary tract infections. 7. Anemia of chronic kidney disease. 8. Recurrent urosepsis ESBL E. coli and Proteus. 9. Type 2 diabetes. 10. Hypertension. 11. Hypertensive cardiovascular disease. MEDICATIONS: Tylenol p.r.n., fenofibrate, heparin subcutaneous, lansoprazole, Kayexalate, Carafate, sodium docusate, milk of magnesia, insulin sliding scale, Glucerna. ALLERGIES: No known drug allergies. FAMILY HISTORY: Unable to obtain due to mental status. SOCIAL HISTORY: Unable to obtain due to mental status. REVIEW OF SYSTEMS: Unable to obtain due to mental status. PHYSICAL EXAMINATION: GENERAL: This is an elderly male who looks chronically ill and cachectic. VITAL SIGNS: Blood pressure is 140/71, pulse 91 regular, respirations 20, temperature 97.5 axillary. HEENT: The head is normocephalic and atraumatic. Pupils are equal, round, and reactive to light and accommodation consensually. He has very poor dentition. NECK: Supple. Trachea midline. There was no lymphadenopathy or thyromegaly. LUNGS: Few bilateral wheezes. HEART: Regular rate and rhythm without rubs, murmurs, or gallops. ABDOMEN: Soft and nontender. Bowel sounds were active. He has a G-tube. EXTREMITIES: No clubbing, cyanosis, or edema. NEUROLOGICAL: He is confused. There were no gross focal findings. LABORATORY AND ANCILLARY DATA: CBC shows white count of 13,400, hematocrit 27.9, platelet count 280,000. Chemistry, sodium 151, potassium 3.7, chloride 111, BUN 74, creatinine 2.1, glucose 164. Urinalysis 10 to 15 white blood cells, too numerous to count rbc's. Urine culture and sensitivity results pending. ASSESSMENT: 1. Chronic kidney disease. 2. Recurrent acute renal failure. 3. Recurrent aspiration episodes. 4. Chronic hyperkalemia, on Kayexalate. 5. Recurrent gastroesophagitis. 6. Recurrent multidrug resistant urinary tract infections. 7. Anemia of chronic kidney disease. 8. Recurrent urosepsis ESBL E. coli and Proteus. 9. Type 2 diabetes. 10. Hypertension. 11. Hypertensive cardiovascular disease. PLAN: 1. Continue free water rehydration. 2. Continue IV antibiotics. 3. ID consult. Ann López M.D. DR: BROOKE JOB#: [id number] CC:
--- NOTE | 2018-12-23 20:05 | NUR ---
HAND-OFF: Report given to JEANNE PATEL.
--- NOTE | 2018-12-23 23:45 | Consultation ---
DATE OF CONSULTATION: 12/23/2018 INFECTIOUS DISEASE CONSULTATION CONSULTING PHYSICIAN: Wanda Sams M.D. ATTENDING PHYSICIAN: Ann López M.D. REFERRING PHYSICIAN: Ann López M.D. REASON FOR CONSULTATION: Possible sepsis, SIRS criteria, UTI. CHIEF COMPLAINT: The patient's chief complaint coming in to the hospital is dehydration, acute kidney injury. HISTORY OF PRESENT ILLNESS: This is an 83-year-old male who comes in to [facility] with acute kidney injury and dehydration. The patient's creatinine was noted to be 2.1. The patient has leukocytosis and positive urinalysis with possibility of sepsis and UTI. Infectious Disease consultation was requested. The patient was placed on Zosyn to cover for possible UTI pending final workup. MAR was noted. Orders were noted. Notes and records were reviewed. The patient is getting IV fluid hydration. The patient cannot add to the history. He is also confused, weak, and mostly nonverbal at this time. REVIEW OF SYSTEMS: CONSTITUTIONAL: He has no fevers. He did come in with dehydration. HEAD AND NECK: Cannot assess. CARDIAC: He is not on pressors. He has no pressors. GASTROINTESTINAL: No nausea, vomiting, abdominal pain, diarrhea. GENITOURINARY: He has no Murray. PULMONARY: No significant congestion, shortness of breath, secretions, hemoptysis seen. No vent. SKIN: No rash noted. Skin exam was reviewed. Photos reviewed. NEUROLOGICAL: He has generalized weakness and fatigue. He is poorly responsive. No seizure activity. Review of systems otherwise limited in this patient. PAST MEDICAL HISTORY: The patient has past medical history of following. The patient has past medical history of dehydration in the past. He has history of diabetes type 2. He has history of hypertension, history of organic brain syndrome, esophagitis, anemia, history of chronic kidney disease, acute kidney injury, elevated creatinine, history of ESBL UTI. Other past medical history, he has history of sepsis and pneumonia in the past. Also, history of coffee-ground emesis and GI bleed it looks like. History of G-tube feedings and dysphagia. ALLERGIES: No known drug allergies. No antibiotic allergies. SOCIAL HISTORY: No mention of smoking, alcohol, or drug use. FAMILY HISTORY: Noncontributory per the records. There is no mention of exposure to tuberculosis or cancer per the records. MEDICATIONS: Upon reviewing the MAR, he is on the following medications. Getting IV fluids at this time, started on Zosyn adjusted for renal insufficiency. Outside medications noted and reconciliated. He is on acetaminophen. He is on fenofibrate, heparin, insulin. He is on it looks like Nexium, magnesium hydroxide. He is on G-tube feedings, . Medications. PHYSICAL EXAMINATION: VITAL SIGNS: Temperature is 98.2, pulse rate is 93, respiratory rate 19, blood pressure 131/69, saturation is 93% to 99%. Pulse rate was as high as 102 and respiratory rate was as high as 32 on admission. GENERAL: Lethargic, weak, mostly nonverbal, occasionally opens eyes, mostly lethargic. No acute distress or shortness of breath noted. HEAD AND NECK: Oral exam, no thrush. Eye exam, no icterus. Neck is supple. No JVD. Normocephalic. HEART: Regular. No obvious gallop or murmur. No friction rub. ABDOMEN: Soft. Positive bowel sounds. Really cannot assess tenderness. LUNGS: Fairly clear bilaterally. No rhonchi or rales. SKIN: No rash or dermatitis. MUSCULOSKELETAL: No effusion. Legs are without cellulitis. PERIPHERAL VASCULAR: No cyanosis or gangrene. GENITOURINARY: No Murray. LINES: Line sites without phlebitis. NEUROLOGIC: Generalized weakness. Poorly responsive. SKIN: With regard to his wounds, I reviewed the photos. There were no acutely infected wounds noted. LABORATORY AND DIAGNOSTIC DATA: Chest x-ray was noted. There were no acute findings. Report was noted. Cultures are pending. Urine culture, preliminary is negative. Blood cultures are pending and C. difficile is negative. Laboratory data, white count 13.4, hemoglobin 8.8. White count on admission was 15.7. Creatinine 2.1, sodium 151. LFTs were noted. ASSESSMENT AND PLAN: 1. The patient has possible sepsis, SIRS criteria, elevated respiratory rate and heart rate, and leukocytosis. The patient has positive urinalysis. Urinalysis had 2+ leukocyte esterase, hematuria, and 10-15 white blood cells. At this time, the patient is at risk for aspiration. Chest x-ray initially was negative. At this time, we will continue Zosyn for gram-negative UTI coverage and aspiration coverage. Continue Zosyn. Check followup chest x-ray. Check laboratories. Check urine culture and blood cultures. If not done, we will check lactic acid level. Again, continue Zosyn for possible sepsis and UTI, and also monitor laboratories and check final cultures and chest x-ray. Zosyn for both gram-negative and anaerobic coverage. 2. Acute kidney injury, elevated creatinine, history of renal failure. 3. History of pneumonia, sepsis. 4. Diabetes. 5. Hypertension. 6. Blood sugar and blood pressure treatment per primary for diabetes and hypertension. 7. History of ESBL UTI. 8. Dementia. 9. History of GI bleed and coffee-ground emesis. 10. IV fluids for dehydration. 11. Esophagitis history. 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 13. Anemia. 14. No known drug allergies. 15. Social history negative. 16. Family history noncontributory. 17. MAR was noted. 18. Case discussed with RN. 19. Skin care protocol. 20. Continue treatment per primary consultants. 21. Notes were noted. Orders were entered. Thank you. I will continue to follow with you. Wanda Sams M.D. DR: Last JOB#: [id number] CC:
[2018-12-24] VITALS: BP 123/55
[2018-12-24 04:00] VITALS: BP 129/59
[2018-12-24 07:27] LABS: ANION GAP 7 mmol/L (5-15); BLOOD UREA NITROGEN 53 mg/dL (7-18); CALCIUM 8.8 MG/DL (8.5-10.1); CARBON DIOXIDE 30 MMOL/L (21-32); CHLORIDE 104 MMOL/L (98-107); POTASSIUM 3.5 MMOL/L (3.5-5.1); SODIUM 141 MMOL/L (136-145)
[2018-12-24 07:31] LABS: HEMATOCRIT 24.7 % (42.0-52.0); HEMOGLOBIN 7.9 G/DL (14.2-18.0); MEAN CORPUSCULAR VOLUME 96 FL (80-99); PLATELET COUNT 256 K/UL (150-450); RED BLOOD COUNT 2.57 M/UL (4.70-6.10); RED CELL DISTRIBUTION WIDTH 13.5 % (11.6-14.8); WHITE BLOOD COUNT 11.2 K/UL (4.8-10.8)
--- NOTE | 2018-12-24 07:44 | NUR ---
HAND-OFF: Report given to Chris PATEL.
--- NOTE | 2018-12-24 07:50 | NUR ---
NURSE NOTES: Received patient on bed, asleep. IV site intact and patent. Bed in low and locked position, call light in reach. Gtube intact but not connected. No signs of respiratory distress or pain. Room board updated, will continue to monitor.
[2018-12-24 08:00] VITALS: BP 140/71
--- NOTE | 2018-12-24 08:52 | NUR ---
RADIOLOGY DEPT., CHEST X-RAY DONE.-P.DYE
[2018-12-24] MEDS: Heparin 5000 units/ml inj SUBQ SCH ×2 (09:45→22:16)
--- NOTE | 2018-12-24 11:00 | NUR ---
HAND-OFF: Report given to JORGE Aldrich.
[2018-12-24 12:00] VITALS: BP 133/56
--- NOTE | 2018-12-24 13:00 | Diagnostic Imaging Report ---
Indication: Dyspnea Comparison: 12/22/2018 A single view chest radiograph was obtained. 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 Heart is borderline in size currently. Bones are osteopenic. IMPRESSION: No significant change or acute finding
--- NOTE | 2018-12-24 14:19 | NUR ---
HAND-OFF: Report given to JORGE POTTS. PATIENT STABLE, RESTING IN BED.
--- NOTE | 2018-12-24 14:26 | Infectious Diseases Prog Note ---
Assessment/Plan Assessment/Plan Assessment and Plan: 1. sepsis, ? uti, leukocytosis, sirs +, ams, weakness - - zosyn - f/u on cultures - monitor labs, chest x-ray neg for pna x 2 - clinically improved, more alert, leukocytosis improved 2. Acute kidney injury, elevated creatinine, history of renal failure. 3. History of pneumonia, sepsis. 4. Diabetes. 5. Hypertension. 6. Blood sugar and blood pressure treatment per primary for diabetes and hypertension. 7. History of ESBL UTI. 8. Dementia. 9. History of GI bleed and coffee-ground emesis. 10. IV fluids for dehydration. 11. Esophagitis history. 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 13. Anemia. 14. No known drug allergies. 15. Social history negative. 16. Family history noncontributory. 17. MAR was noted. 18. Case discussed with RN. 19. Skin care protocol. 20. Continue treatment per primary consultants. 21. Notes were noted. Orders were entered. Subjective Constitutional: Reports: fatigue, other - more alert and responsive ; Denies: fever HEENT: Denies: congestion Respiratory: Denies: shortness of breath Cardiovascular: Denies: chest pain Gastrointestinal/Abdominal: Denies: nausea, vomiting, diarrhea Genitourinary: Reports: other - + bowden Neurologic: Denies: headache Psychiatric: Denies: depression Skin: Denies: rash Hematologic: Denies: bleeding Allergies: Coded Allergies: No Known Allergies (Verified , 12/28/06) Objective Vital Signs Last 24 Hour Vital Signs Date Time Temp Pulse Resp B/P (MAP) Pulse Ox O2 Delivery O2 Flow Rate FiO2 12/24/18 12:00 98.0 65 20 133/56 (81) 12/24/18 09:00 Room Air 12/24/18 08:00 97.5 91 14 140/71 (94) 98 12/24/18 04:00 97.0 76 18 129/59 (82) 100 12/24/18 00:00 97.6 80 18 123/55 (77) 100 12/23/18 21:00 Room Air 12/23/18 20:00 98.0 83 18 142/69 (93) 100 12/23/18 16:00 98.2 93 19 131/69 (89) 93 Height (Feet): 5 Height (Inches): 8.00 Weight (Pounds): 158 General Appearance: no acute distress HEENT: normocephalic, atraumatic, anicteric, mucous membranes moist Respiratory/Chest: lungs clear, normal breath sounds, no respiratory distress, no accessory muscle use Cardiovascular: normal rate, regular rhythm, no gallop/murmur, no JVD Abdomen: normal bowel sounds, soft, non tender, no organomegaly, non distended Genitourinary: other - + bowden - urine slt cloudy Extremities: no cyanosis Skin: no rash Neurologic/Psychiatric: gwot ia/ilo intelligence support II-XII grossly normal, alert, oriented x 3, responsive Lymphatic: no neck adenopathy Musculoskeletal: no effusion Objective Chest x-ray - 12/24/18: Procedure: XRAY Chest 1v Indication: Dyspnea Comparison: 12/22/2018 A single view chest radiograph was obtained. 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 Heart is borderline in size currently. Bones are osteopenic. IMPRESSION: No significant change or acute finding Microbiology Date/Time Source Procedure Growth Status 12/22/18 14:25 Blood Blood Culture - Preliminary NO GROWTH AFTER 24 HOURS Resulted 12/22/18 14:10 Blood Blood Culture - Preliminary NO GROWTH AFTER 24 HOURS Resulted 12/22/18 15:50 Nasal Nares MRSA Culture - Final Staphylococcus Aureus - Mrsa Complete 12/22/18 20:00 Stool Clostridium difficile Toxin Assay - Final Complete 12/22/18 14:50 Urine,Clean Catch Urine Culture - Preliminary Mixed Urogenital Contaminants Resulted 12/22/18 15:50 Rectum VRE Culture - Final Enterococcus Faecalis - Vre Complete 12/22/18 15:50 Rectum Received Laboratory Tests Test 12/24/18 06:15 White Blood Count 11.2 K/UL (4.8-10.8) H Red Blood Count 2.57 M/UL (4.70-6.10) L Hemoglobin 7.9 G/DL (14.2-18.0) L Hematocrit 24.7 % (42.0-52.0) L Mean Corpuscular Volume 96 FL (80-99) Mean Corpuscular Hemoglobin 30.9 PG (27.0-31.0) Mean Corpuscular Hemoglobin Concent 32.2 G/DL (32.0-36.0) Red Cell Distribution Width 13.5 % (11.6-14.8) Platelet Count 256 K/UL (150-450) Mean Platelet Volume 6.5 FL (6.5-10.1) Neutrophils (%) (Auto) % (45.0-75.0) Lymphocytes (%) (Auto) % (20.0-45.0) Monocytes (%) (Auto) % (1.0-10.0) Eosinophils (%) (Auto) % (0.0-3.0) Basophils (%) (Auto) % (0.0-2.0) Differential Total Cells Counted 100 Neutrophils % (Manual) 81 % (45-75) H Lymphocytes % (Manual) 12 % (20-45) L Monocytes % (Manual) 3 % (1-10) Eosinophils % (Manual) 4 % (0-3) H Basophils % (Manual) 0 % (0-2) Band Neutrophils 0 % (0-8) Platelet Estimate Adequate Platelet Morphology Normal Hypochromasia 1+ Sodium Level 141 MMOL/L (136-145) # Potassium Level 3.5 MMOL/L (3.5-5.1) Chloride Level 104 MMOL/L (98-107) Carbon Dioxide Level 30 MMOL/L (21-32) Anion Gap 7 mmol/L (5-15) Blood Urea Nitrogen 53 mg/dL (7-18) H Creatinine 2.0 MG/DL (0.55-1.30) H Estimat Glomerular Filtration Rate mL/min (>60) Glucose Level 150 MG/DL (74-106) H Calcium Level 8.8 MG/DL (8.5-10.1) Magnesium Level 1.5 MG/DL (1.8-2.4) L Current Medications Medications (Trade) Dose Ordered Sig/Jarrod Route PRN Reason Start Time Stop Time Status Last Admin Dose Admin Dextrose 1,000 ml @ 125 mls/hr Q8H IV 12/23/18 12:35 01/22/19 12:34 12/24/18 09:48 Heparin Sodium (Porcine) (Heparin 5000 units/ml) 5,000 units EVERY 12 HOURS SUBQ 12/22/18 21:00 01/21/19 20:59 12/24/18 09:45 Piperacillin Sod/ Tazobactam Sod 3.375 gm/Dextrose 100 ml @ 25 mls/hr EVERY 12 HOURS IVPB 12/23/18 18:00 12/24/18 15:00 12/24/18 09:42 Piperacillin Sod/ Tazobactam Sod 3.375 gm/Sodium Chloride 110 ml @ 27.5 mls/hr Q8HR@0100,0900,1700 IVPB 12/24/18 17:00 12/31/18 16:59 Wanda Sams MD Dec 24, 2018 14:26
--- NOTE | 2018-12-24 14:27 | NUR ---
NURSE NOTES: Received report from Roberta Stearns RN. Pt in bed, asleep, respirations unlabored, no apparent distress noted, IVF running according to order, Zosyn IV running, bed in lowest position, call light within reach.
--- NOTE | 2018-12-24 14:52 | NUR ---
RD ASSESSMENT & RECOMMENDATIONS SEE CARE ACTIVITY FOR COMPLETE ASSESSMENT DAILY ESTIMATED NEEDS: Needs based on Underweight/ 49kg 30-35 kcals/kg 2762-7872 total kcals 1-1.5 g protein/kg 49-73 g total protein 25-30 mL/kg 2095-4051 total fluid mLs NUTRITION DIAGNOSIS: * Swallowing difficulty R/T dysphagia as evidenced by pt is PEG dep, NPO at this time. CURRENT TF:Glucerna 1.2 @ 55ml/hr x 24 hrs ENTERAL NUTRITION RECOMMENDATIONS: Glucerna 1.2 @ 55ml/hr x 24 hrs to provide 1320ml, 1584kcal, 79g prot, 1062ml free water * As medically appropriate, initiate TF * Initiate Glucerna 1.2 @ 25ml/hr x 6 hrs, advance 10ml q 4-6 hrs as tolerated to goal rate. * HOB over 30 degrees/ water flush per MD ADDITIONAL RECOMMENDATIONS: * Per SNF, pt is 5'7" obtained 07/03/18 * TXR to bed w/ bedscale, obtain CALIBRATED bedscale * Monitor lytes closely, replete as needed (low mag) * Accucheck w/ SSI once TF resumes- h/o DM . . . Addendum: 12/24/18 at [address] Addendum: CURRENT TF= NPO
[2018-12-24 16:00] VITALS: BP 119/52
[2018-12-24] MEDS: Zosyn 3.375gm q8h **Extended infusion IVPB SCH ×2 (17:04)
--- NOTE | 2018-12-24 17:27 | General Progress Note ---
Assessment/Plan Assessment/Plan UTI - IV Abx Hypernatreia, volume depletion - IV Free water. Subjective Allergies: Coded Allergies: No Known Allergies (Verified , 12/28/06) Subjective Confused Objective Last 24 Hour Vital Signs Date Time Temp Pulse Resp B/P (MAP) Pulse Ox O2 Delivery O2 Flow Rate FiO2 12/24/18 16:00 97.6 75 18 119/52 (74) 12/24/18 12:00 98.0 65 20 133/56 (81) 12/24/18 09:00 Room Air 12/24/18 08:00 97.5 91 14 140/71 (94) 98 12/24/18 04:00 97.0 76 18 129/59 (82) 100 12/24/18 00:00 97.6 80 18 123/55 (77) 100 12/23/18 21:00 Room Air 12/23/18 20:00 98.0 83 18 142/69 (93) 100 Intake and Output 12/23/18 12/24/18 19:00 07:00 Intake Total 950 ml Output Total 0 ml Balance 950 ml 0 ml Intake IV Total 950 ml Output Stool Total 0 ml # Voids 2 Laboratory Tests 12/24/18 06:15: White Blood Count 11.2H, Red Blood Count 2.57L, Hemoglobin 7.9L, Hematocrit 24.7L, Mean Corpuscular Volume 96, Mean Corpuscular Hemoglobin 30.9, Mean Corpuscular Hemoglobin Concent 32.2, Red Cell Distribution Width 13.5, Platelet Count 256, Mean Platelet Volume 6.5, Neutrophils (%) (Auto) , Lymphocytes (%) ( Auto) , Monocytes (%) (Auto) , Eosinophils (%) (Auto) , Basophils (%) (Auto) , Differential Total Cells Counted 100, Neutrophils % (Manual) 81H, Lymphocytes % (Manual) 12L, Monocytes % (Manual) 3, Eosinophils % (Manual) 4H, Basophils % ( Manual) 0, Band Neutrophils 0, Platelet Estimate Adequate, Platelet Morphology Normal, Hypochromasia 1+, Sodium Level 141#, Potassium Level 3.5, Chloride Level 104, Carbon Dioxide Level 30, Anion Gap 7, Blood Urea Nitrogen 53H, Creatinine 2.0H, Estimat Glomerular Filtration Rate , Glucose Level 150H, Calcium Level 8.8, Magnesium Level 1.5L Height (Feet): 5 Height (Inches): 8.00 Weight (Pounds): 158 Objective CV RR Lungs CTA Abd SNT. BS + E No CCE Ann López MD Dec 24, 2018 17:27
--- NOTE | 2018-12-24 19:32 | NUR ---
HAND-OFF: Report given to JORGE Person.
[2018-12-24 20:00] VITALS: BP 119/52
--- NOTE | 2018-12-24 20:15 | NUR ---
NURSE NOTES: Pt is in bed, awake and verbal. No acute distress noted. D5W running at 125ml/hr. Bewd low in position,side rails up[ and call light within reach. Bed alarm on. Pt will be monitored.
[2018-12-25] VITALS: BP 142/56
[2018-12-25] MEDS: Zosyn 3.375gm q8h **Extended infusion IVPB SCH ×6 (01:55→18:17)
[2018-12-25 04:00] VITALS: BP 113/51
--- NOTE | 2018-12-25 04:38 | NUR ---
NURSE NOTES: Pt is in bed, asleep. D5W running at 125ml/hr . Pt is turned q2Hrs. Pt is cleaned and linen changed.
[2018-12-25 06:53] LABS: BASOPHILS % (AUTO) 0.8 % (0.0-2.0); EOSINOPHILS % (AUTO) 3.6 % (0.0-3.0); HEMATOCRIT 23.5 % (42.0-52.0); LYMPHOCYTES % (AUTO) 10.1 % (20.0-45.0); MEAN CORPUSCULAR VOLUME 92 FL (80-99); MONOCYTES % (AUTO) 7.8 % (1.0-10.0); NEUTROPHILS % (AUTO) 77.7 % (45.0-75.0); PLATELET COUNT 236 K/UL (150-450); RED BLOOD COUNT 2.56 M/UL (4.70-6.10); RED CELL DISTRIBUTION WIDTH 12.6 % (11.6-14.8)
[2018-12-25 07:22] LABS: ANION GAP 10 mmol/L (5-15); BLOOD UREA NITROGEN 36 mg/dL (7-18); CALCIUM 8.4 MG/DL (8.5-10.1); CARBON DIOXIDE 26 MMOL/L (21-32); CHLORIDE 94 MMOL/L (98-107); CREATININE 1.8 MG/DL (0.55-1.30); POTASSIUM 3.3 MMOL/L (3.5-5.1); SODIUM 130 MMOL/L (136-145)
--- NOTE | 2018-12-25 07:30 | NUR ---
HAND-OFF: Report given to Edin Conroy RN.Pt is awake and verbal. No acute distress noted.
--- NOTE | 2018-12-25 07:50 | NUR ---
NURSE NOTES: Received patient on bed, asleep. IV site intact and patent. Bed in low and locked position, call light in reach. No signs of respiratory distress or pain. Room board updated, will continue to monitor.
[2018-12-25 08:00] VITALS: BP 144/66
[2018-12-25] MEDS: Heparin 5000 units/ml inj SUBQ SCH ×2 (09:14→20:35)
[2018-12-25 12:00] VITALS: BP 115/55
--- NOTE | 2018-12-25 15:00 | NUR ---
NURSE NOTES: Gtube dressing and sacral dressing changed.
--- NOTE | 2018-12-25 15:09 | NUR ---
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 Heart is borderline in size currently. Bones are osteopenic. IS:HEPARIN SUBQ D5 x1L IV PIPERACILLIN 110ml IVPB MED/SURG STATUS
--- NOTE | 2018-12-25 15:24 | General Progress Note ---
Assessment/Plan Assessment/Plan UTI - IV Abx Hypernatreia, volume depletion - IV Free water. Corrected - see orders. Subjective Allergies: Coded Allergies: No Known Allergies (Verified , 12/28/06) Subjective Confused Objective Last 24 Hour Vital Signs Date Time Temp Pulse Resp B/P (MAP) Pulse Ox O2 Delivery O2 Flow Rate FiO2 12/25/18 12:00 97.5 73 18 115/55 (75) 99 12/25/18 09:00 Room Air 12/25/18 08:00 97.9 83 18 144/66 (92) 96 12/25/18 04:00 97.4 70 16 113/51 (71) 98 12/25/18 00:00 97.5 70 17 142/56 (84) 99 12/24/18 21:00 Room Air 12/24/18 20:00 97.3 69 17 119/52 (74) 99 12/24/18 16:00 97.6 75 18 119/52 (74) Intake and Output 12/24/18 12/25/18 18:59 06:59 Intake Total 150 ml 1360.0 ml Output Total 1000 ml Balance 150 ml 360.0 ml Intake IV Total 150 ml 1360.0 ml Output Urine Total 1000 ml # Voids 2 3 # Bowel Movements 1 1 Laboratory Tests 12/25/18 06:17: White Blood Count 11.0H, Red Blood Count 2.56L, Hemoglobin 8.0L, Hematocrit 23.5L, Mean Corpuscular Volume 92, Mean Corpuscular Hemoglobin 31.1H, Mean Corpuscular Hemoglobin Concent 33.8, Red Cell Distribution Width 12.6, Platelet Count 236, Mean Platelet Volume 6.8, Neutrophils (%) (Auto) 77.7H, Lymphocytes ( %) (Auto) 10.1L, Monocytes (%) (Auto) 7.8, Eosinophils (%) (Auto) 3.6H, Basophils (%) (Auto) 0.8, Sodium Level 130L, Potassium Level 3.3L, Chloride Level 94L, Carbon Dioxide Level 26, Anion Gap 10, Blood Urea Nitrogen 36H, Creatinine 1.8H, Estimat Glomerular Filtration Rate , Glucose Level 121H, Calcium Level 8.4L Height (Feet): 5 Height (Inches): 8.00 Weight (Pounds): 158 Objective CV RR Lungs CTA Abd SNT. BS + E No CCE Ann López MD Dec 25, 2018 15:24
[2018-12-25 16:00] VITALS: BP 119/53
--- NOTE | 2018-12-25 16:09 | NUR ---
NURSE NOTES: Started tube feeding Glucerna 1.2 at 10mL/hour with goal of 35mL/hour. FLushed Gtube with 100 mL of water. Patient tolerated well.
--- NOTE | 2018-12-25 16:45 | Infectious Diseases Prog Note ---
Assessment/Plan Assessment/Plan Assessment and Plan: 1. sepsis, ? uti, leukocytosis, sirs +, ams, weakness - - zosyn - finish short abx course - f/u on cultures - monitor labs, chest x-ray neg for pna x 2 - clinically improved, more alert, leukocytosis improved - d/w Dr. López about abx 2. Acute kidney injury, elevated creatinine, history of renal failure. 3. History of pneumonia, sepsis. 4. Diabetes. 5. Hypertension. 6. Blood sugar and blood pressure treatment per primary for diabetes and hypertension. 7. History of ESBL UTI. 8. Dementia. 9. History of GI bleed and coffee-ground emesis. 10. IV fluids for dehydration. 11. Esophagitis history. 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 13. Anemia. 14. No known drug allergies. 15. Social history negative. 16. Family history noncontributory. 17. MAR was noted. 18. Case discussed with RN. 19. Skin care protocol. 20. Continue treatment per primary consultants. 21. Notes were noted. Orders were entered. Subjective Constitutional: Denies: fever HEENT: Denies: congestion Respiratory: Denies: shortness of breath Cardiovascular: Denies: chest pain Gastrointestinal/Abdominal: Denies: nausea, vomiting, diarrhea Genitourinary: Reports: other - no bowden Neurologic: Denies: headache Psychiatric: Denies: depression Skin: Denies: rash Hematologic: Denies: bleeding Musculoskeletal: Reports: pain Allergies: Coded Allergies: No Known Allergies (Verified , 12/28/06) Objective Vital Signs Last 24 Hour Vital Signs Date Time Temp Pulse Resp B/P (MAP) Pulse Ox O2 Delivery O2 Flow Rate FiO2 12/25/18 12:00 97.5 73 18 115/55 (75) 99 12/25/18 09:00 Room Air 12/25/18 08:00 97.9 83 18 144/66 (92) 96 12/25/18 04:00 97.4 70 16 113/51 (71) 98 12/25/18 00:00 97.5 70 17 142/56 (84) 99 12/24/18 21:00 Room Air 12/24/18 20:00 97.3 69 17 119/52 (74) 99 Height (Feet): 5 Height (Inches): 8.00 Weight (Pounds): 158 General Appearance: no acute distress HEENT: normocephalic, atraumatic, anicteric, mucous membranes moist Respiratory/Chest: lungs clear, normal breath sounds, no respiratory distress, no accessory muscle use Cardiovascular: normal rate, regular rhythm, no gallop/murmur, no JVD Abdomen: normal bowel sounds, soft, non tender, no organomegaly, non distended Genitourinary: other - + bowden Extremities: no cyanosis Skin: no rash Neurologic/Psychiatric: electorate officer II-XII grossly normal, no motor/sensory deficits, abnormal gait, alert, oriented x 3, responsive Lymphatic: no neck adenopathy Musculoskeletal: no effusion Objective Chest x-ray - 12/24/18: Procedure: XRAY Chest 1v Indication: Dyspnea Comparison: 12/22/2018 A single view chest radiograph was obtained. 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 Heart is borderline in size currently. Bones are osteopenic. IMPRESSION: No significant change or acute finding Microbiology Date/Time Source Procedure Growth Status 12/22/18 14:25 Blood Blood Culture - Preliminary NO GROWTH AFTER 48 HOURS Resulted 12/22/18 15:50 Nasal Nares MRSA Culture - Final Staphylococcus Aureus - Mrsa Complete 12/22/18 20:00 Stool Clostridium difficile Toxin Assay - Final Complete 12/22/18 14:50 Urine,Clean Catch Urine Culture - Final Mixed Urogenital Contaminants Complete 12/22/18 15:50 Rectum VRE Culture - Final Enterococcus Faecalis - Vre Complete Microbiology Date/Time Source Procedure Growth Status 12/22/18 20:00 Stool Clostridium difficile Toxin Assay - Final Complete Laboratory Tests Test 12/25/18 06:17 White Blood Count 11.0 K/UL (4.8-10.8) H Red Blood Count 2.56 M/UL (4.70-6.10) L Hemoglobin 8.0 G/DL (14.2-18.0) L Hematocrit 23.5 % (42.0-52.0) L Mean Corpuscular Volume 92 FL (80-99) Mean Corpuscular Hemoglobin 31.1 PG (27.0-31.0) H Mean Corpuscular Hemoglobin Concent 33.8 G/DL (32.0-36.0) Red Cell Distribution Width 12.6 % (11.6-14.8) Platelet Count 236 K/UL (150-450) Mean Platelet Volume 6.8 FL (6.5-10.1) Neutrophils (%) (Auto) 77.7 % (45.0-75.0) H Lymphocytes (%) (Auto) 10.1 % (20.0-45.0) L Monocytes (%) (Auto) 7.8 % (1.0-10.0) Eosinophils (%) (Auto) 3.6 % (0.0-3.0) H Basophils (%) (Auto) 0.8 % (0.0-2.0) Sodium Level 130 MMOL/L (136-145) L Potassium Level 3.3 MMOL/L (3.5-5.1) L Chloride Level 94 MMOL/L (98-107) L Carbon Dioxide Level 26 MMOL/L (21-32) Anion Gap 10 mmol/L (5-15) Blood Urea Nitrogen 36 mg/dL (7-18) H Creatinine 1.8 MG/DL (0.55-1.30) H Estimat Glomerular Filtration Rate mL/min (>60) Glucose Level 121 MG/DL (74-106) H Calcium Level 8.4 MG/DL (8.5-10.1) L Current Medications Medications (Trade) Dose Ordered Sig/Jarrod Route PRN Reason Start Time Stop Time Status Last Admin Dose Admin Heparin Sodium (Porcine) (Heparin 5000 units/ml) 5,000 units EVERY 12 HOURS SUBQ 12/22/18 21:00 01/21/19 20:59 12/25/18 09:14 Piperacillin Sod/ Tazobactam Sod 3.375 gm/Sodium Chloride 110 ml @ 27.5 mls/hr Q8HR@0100,0900,1700 IVPB 12/24/18 17:00 12/31/18 16:59 12/25/18 09:13 Sodium Chloride 1,000 ml @ 75 mls/hr [id number] IV 12/25/18 15:30 01/24/19 15:29 12/25/18 16:09 Wanda Sams MD Dec 25, 2018 16:45
--- NOTE | 2018-12-25 19:33 | NUR ---
HAND-OFF: Report given to JORGE Jones.
--- NOTE | 2018-12-25 19:40 | NUR ---
NURSE NOTES: Pt is in bed, awake and verbal. No acute distress noted. Room Air. Glucerna 1.2 running at 20ml/hr, goal rate 35ml/hr. Pt is tolerating well. HOB elevated. 1/2Ns running 75ml/hr. Pt will be turned Q2HRS and cleaned as necessary. Bed low in position,side rails up. Call light within reach.Fall precaution in place. Pt will be monitored.
[2018-12-25 20:00] VITALS: BP 122/95
[2018-12-25] MEDS ORDERED: Tubing IV Secondary IV ONE (20:37)
[2018-12-26] VITALS: BP 122/51
[2018-12-26] MEDS: Zosyn 3.375gm q8h **Extended infusion IVPB SCH ×6 (00:47→16:51)
[2018-12-26 04:00] VITALS: BP 122/51
--- NOTE | 2018-12-26 06:00 | NUR ---
NURSE NOTES: Pt is disoriented, attempting to get out of bed. Pt is moved closer to nursing station in room 401-1 from room 418-2 for closer monitoring. Vitals stable.Pt is tolerating tube feeding well, no residual, G-tube flushed. Pt is reoriented. Pt is fall risk. Fall precaution in place. Bed alarm on. Bed low in position,side rail sup and call light within reach. Pt was cleaned and turned. Pt will be monitored.
[2018-12-26 07:06] LABS: HEMATOCRIT 24.2 % (42.0-52.0); HEMOGLOBIN 8.5 G/DL (14.2-18.0); MEAN CORPUSCULAR VOLUME 90 FL (80-99); PLATELET COUNT 259 K/UL (150-450); RED CELL DISTRIBUTION WIDTH 12.9 % (11.6-14.8); WHITE BLOOD COUNT 17.1 K/UL (4.8-10.8)
[2018-12-26 07:15] LABS: ANION GAP 10 mmol/L (5-15); BLOOD UREA NITROGEN 27 mg/dL (7-18); CALCIUM 8.6 MG/DL (8.5-10.1); CARBON DIOXIDE 26 MMOL/L (21-32); CHLORIDE 95 MMOL/L (98-107); CREATININE 1.8 MG/DL (0.55-1.30); POTASSIUM 3.5 MMOL/L (3.5-5.1); SODIUM 131 MMOL/L (136-145)
--- NOTE | 2018-12-26 07:15 | NUR ---
NURSE NOTES: RN received pt in stable condition. No acute distress or SOB. Pt resting; bed in low, locked position. Call light within reach. Will continue plan of care.
--- NOTE | 2018-12-26 07:15 | NUR ---
HAND-OFF: Report given to Lit Howe RN. Informed that patient is Fall RISK
--- NOTE | 2018-12-26 07:32 | NUR ---
NURSE NOTES: Received patient from Raza RN, aptient is resting comfortably in bed, no distress noted, tube feed running well, bed is locked and in lowest position, alarm set, call light within reach, will continue to monitor.
[2018-12-26 08:00] VITALS: BP_SYST 120; BP_SYST 139; BP_DIAS 48; BP_DIAS 62
--- NOTE | 2018-12-26 08:02 | NUR ---
NURSE NOTES: RN paged Dr López. regarding recent lab value: Na 131. Awaiting call back.
[2018-12-26] MEDS: Heparin 5000 units/ml inj SUBQ SCH ×2 (08:23→20:45)
--- NOTE | 2018-12-26 08:47 | NUR ---
NURSE NOTES: Chart error VS - 2nd set of vital signs at 0800 correct.
--- NOTE | 2018-12-26 09:54 | General Progress Note ---
Assessment/Plan Assessment/Plan UTI - IV Abx Hyponatremia, volume depletion - IVF changed again - see orders. Subjective Allergies: Coded Allergies: No Known Allergies (Verified , 12/28/06) Subjective Confused Objective Last 24 Hour Vital Signs Date Time Temp Pulse Resp B/P (MAP) Pulse Ox O2 Delivery O2 Flow Rate FiO2 12/26/18 08:00 98.2 71 18 120/48 (72) 95 12/26/18 08:00 97.2 104 20 139/62 (87) 100 12/26/18 04:00 97.8 75 20 122/51 (74) 100 12/25/18 21:00 Room Air 12/25/18 20:00 98.8 73 18 122/95 (104) 98 12/25/18 16:00 97.5 70 19 119/53 (75) 98 12/25/18 12:00 97.5 73 18 115/55 (75) 99 Intake and Output 12/25/18 12/26/18 19:00 07:00 Intake Total 525.0 ml 1575.0 ml Output Total 500 ml Balance 525.0 ml 1075.0 ml Intake Free Water 100 ml 150 ml IV Total 385.0 ml 1120.0 ml Tube Feeding 40 ml 305 ml Output Urine Total 500 ml # Voids 4 # Bowel Movements 1 1 Laboratory Tests 12/26/18 06:15: White Blood Count 17.1#H, Red Blood Count 2.70L, Hemoglobin 8.5L, Hematocrit 24.2L, Mean Corpuscular Volume 90, Mean Corpuscular Hemoglobin 31.7H, Mean Corpuscular Hemoglobin Concent 35.3, Red Cell Distribution Width 12.9, Platelet Count 259, Mean Platelet Volume 6.8, Neutrophils (%) (Auto) , Lymphocytes (%) ( Auto) , Monocytes (%) (Auto) , Eosinophils (%) (Auto) , Basophils (%) (Auto) , Differential Total Cells Counted 100, Neutrophils % (Manual) 90H, Lymphocytes % (Manual) 5L, Monocytes % (Manual) 5, Eosinophils % (Manual) 0, Basophils % ( Manual) 0, Band Neutrophils 0, Platelet Estimate Adequate, Platelet Morphology Normal, Hypochromasia 2+, Anisocytosis 1+, Sodium Level 131L, Potassium Level 3.5, Chloride Level 95L, Carbon Dioxide Level 26, Anion Gap 10, Blood Urea Nitrogen 27H, Creatinine 1.8H, Estimat Glomerular Filtration Rate , Glucose Level 104, Calcium Level 8.6, Magnesium Level 2.2 Height (Feet): 5 Height (Inches): 8.00 Weight (Pounds): 158 Objective CV RR Lungs CTA Abd SNT. BS + E No CCE Ann López MD Dec 26, 2018 09:54
[2018-12-26 12:00] VITALS: BP 134/65
[2018-12-26 16:00] VITALS: BP 145/72
[2018-12-26] MEDS ORDERED: 1/2 NS 1000ml IV ONE (18:38)
--- NOTE | 2018-12-26 19:21 | NUR ---
HAND-OFF: Report given to Steve PATEL.
--- NOTE | 2018-12-26 19:21 | NUR ---
NURSE NOTES: Received patient on bed awake, no s/s of any distress, IV patent and infusing well, GT intact, Bed in low position and locked, call light within reach, will contuinue Addendum: 12/26/18 at 1926 by Thai Mcleod RN NURSE NOTES: Received patient on bed awake, no s/s of any distress, IV patent and infusing well, GT intact, Bed in low position and locked, call light within reach, will continue to monitor.
[2018-12-26 20:00] VITALS: BP 148/67
[2018-12-27] VITALS: BP 136/67
[2018-12-27] MEDS: Zosyn 3.375gm q8h **Extended infusion IVPB SCH ×4 (00:18→08:02)
[2018-12-27 04:00] VITALS: BP 140/61
--- NOTE | 2018-12-27 07:09 | NUR ---
HAND-OFF: Report given to Rajani PATEL.
--- NOTE | 2018-12-27 07:21 | NUR ---
NURSE NOTES: RN received report from JORGE Conley. Pt in stable condition. No acute distress or SOB. Bed in low, locked position. Call light within reach. IV patent and intact. Will continue plan of care.
--- NOTE | 2018-12-27 07:32 | NUR ---
NURSE NOTES: Received patient from Steve RN, patient is resting in bed, no distress noted, bed is locked and in lowest position, alarm set, call light within reach, will continue to monitor.
[2018-12-27 08:00] VITALS: BP 146/61
[2018-12-27] MEDS: Heparin 5000 units/ml inj SUBQ SCH ×2 (08:04→21:43)
--- NOTE | 2018-12-27 08:17 | General Progress Note ---
Assessment/Plan Assessment/Plan UTI - IV Abx Hyponatremia, volume depletion - IVF changed again - see orders. Resolved. DC to SNF. Subjective Allergies: Coded Allergies: No Known Allergies (Verified , 12/28/06) Subjective Much more alert, recognizing me and very happy! Objective Last 24 Hour Vital Signs Date Time Temp Pulse Resp B/P (MAP) Pulse Ox O2 Delivery O2 Flow Rate FiO2 12/27/18 04:00 97.8 94 20 140/61 (87) 98 12/27/18 00:00 98.1 92 20 136/67 (90) 100 12/26/18 21:00 Room Air 12/26/18 20:00 98.7 101 20 148/67 (94) 100 12/26/18 16:00 98.0 104 18 145/72 (96) 95 12/26/18 12:00 97.2 102 20 134/65 (88) 99 12/26/18 09:00 Room Air Intake and Output 12/26/18 12/27/18 19:00 07:00 Intake Total 520.0 ml 855.0 ml Output Total 700 ml Balance -180.0 ml 855.0 ml Intake Free Water 100 ml IV Total 485.0 ml 335.0 ml Tube Feeding 35 ml 420 ml Output Urine Total 700 ml # Voids 2 # Bowel Movements 2 Height (Feet): 5 Height (Inches): 8.00 Weight (Pounds): 158 Objective CV RR Lungs CTA Abd SNT. BS + E No CCE Ann López MD Dec 27, 2018 08:17
[2018-12-27 08:53] LABS: HEMATOCRIT 23.2 % (42.0-52.0); HEMOGLOBIN 7.9 G/DL (14.2-18.0); MEAN CORPUSCULAR VOLUME 92 FL (80-99); PLATELET COUNT 240 K/UL (150-450); RED BLOOD COUNT 2.52 M/UL (4.70-6.10); WHITE BLOOD COUNT 19.2 K/UL (4.8-10.8)
[2018-12-27 09:00] LABS: ANION GAP 11 mmol/L (5-15); BLOOD UREA NITROGEN 24 mg/dL (7-18); CALCIUM 8.4 MG/DL (8.5-10.1); CARBON DIOXIDE 23 MMOL/L (21-32); CHLORIDE 103 MMOL/L (98-107); CREATININE 1.6 MG/DL (0.55-1.30); POTASSIUM 3.5 MMOL/L (3.5-5.1); SODIUM 137 MMOL/L (136-145)
--- NOTE | 2018-12-27 09:56 | NUR ---
NURSE NOTES: RN contacted Dr. Disla regarding Hgb and WBC results. Per Dr. Foster, RN f/u with Dr. Pizarro; new orders entered. RN to continue plan of care.
[2018-12-27] MEDS ORDERED: metroNIDAZOLE 500mg tab GT SCH (10:30)
[2018-12-27] MEDS: cefTRIAXone 1 GM in D5W 55 ML IVPB SCH (11:09)
[2018-12-27 12:00] VITALS: BP 115/47
[2018-12-27] MEDS: metroNIDAZOLE 500mg tab GT SCH ×2 (14:20→21:42)
[2018-12-27 15:54] LABS: APPEARANCE,URINE CLEAR; BILIRUBIN, URINE NEGATIVE (NEGATIVE); COLOR,URINE PALE YELLOW; GLUCOSE, URINE (UA) NEGATIVE (NEGATIVE); KETONES,URINE NEGATIVE (NEGATIVE); LEUKOCYTE ESTERASE ,URINE 1+ (NEGATIVE); NITRITE,URINE NEGATIVE (NEGATIVE); PH,URINE 6 (4.5-8.0); PROTEIN,URINE 3+ (NEGATIVE); UROBILINOGEN,URINE NORMAL MG/DL (0.0-1.0)
[2018-12-27 16:00] VITALS: BP 131/57
--- NOTE | 2018-12-27 16:19 | Infectious Diseases Prog Note ---
Assessment/Plan Assessment/Plan Assessment and Plan: 1. sepsis, ? uti, leukocytosis worse, ? c.diff. with some diarrhea, sirs +, ams , weakness - - change antibiotics to rocephin and flagyl, discontinue zosyn - f/u on cultures, labs and chest x-ray, check c.diff. - monitor labs - d/w RN x 2 - see multiple orders and change in antibiotics 2. Acute kidney injury, elevated creatinine, history of renal failure. 3. History of pneumonia, sepsis. 4. Diabetes. 5. Hypertension. 6. Blood sugar and blood pressure treatment per primary for diabetes and hypertension. 7. History of ESBL UTI. 8. Dementia. 9. History of GI bleed and coffee-ground emesis. 10. IV fluids for dehydration. 11. Esophagitis history. 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 13. Anemia. 14. No known drug allergies. 15. Social history negative. 16. Family history noncontributory. 17. MAR was noted. 18. Case discussed with RN. 19. Skin care protocol. 20. Continue treatment per primary consultants. 21. Notes were noted. Orders were entered. Subjective Constitutional: Reports: fatigue, other - weak ; Denies: fever HEENT: Denies: congestion Respiratory: Denies: shortness of breath Cardiovascular: Denies: chest pain Gastrointestinal/Abdominal: Reports: diarrhea; Denies: nausea, vomiting Genitourinary: Reports: other - + condom catheter Neurologic: Denies: headache Psychiatric: Denies: depression Skin: Denies: rash Hematologic: Denies: bleeding Musculoskeletal: Denies: pain Allergies: Coded Allergies: No Known Allergies (Verified , 12/28/06) Objective Vital Signs Last 24 Hour Vital Signs Date Time Temp Pulse Resp B/P (MAP) Pulse Ox O2 Delivery O2 Flow Rate FiO2 12/27/18 12:00 98.3 78 20 115/47 (69) 97 12/27/18 09:00 Room Air 12/27/18 08:00 97.9 90 20 146/61 (89) 98 12/27/18 04:00 97.8 94 20 140/61 (87) 98 12/27/18 00:00 98.1 92 20 136/67 (90) 100 12/26/18 21:00 Room Air 12/26/18 20:00 98.7 101 20 148/67 (94) 100 Height (Feet): 5 Height (Inches): 8.00 Weight (Pounds): 158 General Appearance: no acute distress HEENT: normocephalic, atraumatic, anicteric, mucous membranes moist Respiratory/Chest: lungs clear, normal breath sounds, no respiratory distress, no accessory muscle use Cardiovascular: normal rate, regular rhythm, no gallop/murmur, no JVD Abdomen: normal bowel sounds, soft, non tender, no organomegaly, non distended Genitourinary: other - no bowden, + condom catheter Extremities: no cyanosis Skin: no rash Neurologic/Psychiatric: chemist instrumentation II-XII grossly normal, alert, oriented x 3, responsive Lymphatic: no neck adenopathy Musculoskeletal: no effusion Objective Chest x-ray - 12/24/18: Procedure: XRAY Chest 1v Indication: Dyspnea Comparison: 12/22/2018 A single view chest radiograph was obtained. 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 Heart is borderline in size currently. Bones are osteopenic. IMPRESSION: No significant change or acute finding Microbiology Date/Time Source Procedure Growth Status 12/22/18 14:25 Blood Blood Culture - Preliminary NO GROWTH AFTER 72 HOURS Resulted 12/22/18 15:50 Nasal Nares MRSA Culture - Final Staphylococcus Aureus - Mrsa Complete 12/22/18 20:00 Stool Clostridium difficile Toxin Assay - Final Complete 12/22/18 14:50 Urine,Clean Catch Urine Culture - Final Mixed Urogenital Contaminants Complete 12/22/18 15:50 Rectum VRE Culture - Final Enterococcus Faecalis - Vre Complete Laboratory Tests Test 12/27/18 08:45 12/27/18 15:10 White Blood Count 19.2 K/UL (4.8-10.8) H Red Blood Count 2.52 M/UL (4.70-6.10) L Hemoglobin 7.9 G/DL (14.2-18.0) L Hematocrit 23.2 % (42.0-52.0) L Mean Corpuscular Volume 92 FL (80-99) Mean Corpuscular Hemoglobin 31.3 PG (27.0-31.0) H Mean Corpuscular Hemoglobin Concent 34.0 G/DL (32.0-36.0) Red Cell Distribution Width 13.0 % (11.6-14.8) Platelet Count 240 K/UL (150-450) Mean Platelet Volume 6.3 FL (6.5-10.1) L Neutrophils (%) (Auto) % (45.0-75.0) Lymphocytes (%) (Auto) % (20.0-45.0) Monocytes (%) (Auto) % (1.0-10.0) Eosinophils (%) (Auto) % (0.0-3.0) Basophils (%) (Auto) % (0.0-2.0) Differential Total Cells Counted 100 Neutrophils % (Manual) 88 % (45-75) H Lymphocytes % (Manual) 4 % (20-45) L Monocytes % (Manual) 5 % (1-10) Eosinophils % (Manual) 3 % (0-3) Basophils % (Manual) 0 % (0-2) Band Neutrophils 0 % (0-8) Platelet Estimate Adequate Platelet Morphology Normal Anisocytosis 1+ Sodium Level 137 MMOL/L (136-145) Potassium Level 3.5 MMOL/L (3.5-5.1) Chloride Level 103 MMOL/L (98-107) Carbon Dioxide Level 23 MMOL/L (21-32) Anion Gap 11 mmol/L (5-15) Blood Urea Nitrogen 24 mg/dL (7-18) H Creatinine 1.6 MG/DL (0.55-1.30) H Estimat Glomerular Filtration Rate mL/min (>60) Glucose Level 106 MG/DL (74-106) Calcium Level 8.4 MG/DL (8.5-10.1) L Urine Color Pale yellow Urine Appearance Clear Urine pH 6 (4.5-8.0) Urine Specific [place] 1.010 (1.005-1.035) Urine Protein 3+ (NEGATIVE) H Urine Glucose (UA) Negative (NEGATIVE) Urine Ketones Negative (NEGATIVE) Urine Blood Negative (NEGATIVE) Urine Nitrite Negative (NEGATIVE) Urine Bilirubin Negative (NEGATIVE) Urine Urobilinogen Normal MG/DL (0.0-1.0) Urine Leukocyte Esterase 1+ (NEGATIVE) H Urine RBC 0-2 /HPF (0 - 0) H Urine WBC 0-2 /HPF (0 - 0) Urine Squamous Epithelial Cells Occasional /LPF Urine Bacteria Occasional /HPF (NONE) Current Medications Medications (Trade) Dose Ordered Sig/Jarrod Route PRN Reason Start Time Stop Time Status Last Admin Dose Admin Ceftriaxone Sodium 1 gm/ Dextrose 55 ml @ 110 mls/hr Q24H IVPB 12/27/18 11:30 01/03/19 11:29 12/27/18 11:09 Heparin Sodium (Porcine) (Heparin 5000 units/ml) 5,000 units EVERY 12 HOURS SUBQ 12/22/18 21:00 01/21/19 20:59 12/27/18 08:04 Metronidazole (Flagyl) 500 mg Q8HR GT 12/27/18 14:00 01/03/19 13:59 12/27/18 14:20 Sodium Chloride 1,000 ml @ 75 mls/hr [id number] IV 12/26/18 10:00 01/25/19 09:59 12/27/18 11:40 Wanda Sams MD Dec 27, 2018 16:19
--- NOTE | 2018-12-27 19:10 | NUR ---
HAND-OFF: Report given to Wilman PATEL.
--- NOTE | 2018-12-27 19:31 | NUR ---
NURSE NOTES: Received patient awake in bed, able to verbalize needs, no c/o pain at this time. G tube noted on continuous feeding. Condom catheter noted, intact, and asymptomatic. IV site flushing, dressing dry and intact. Fall and safety precautions taken.
--- NOTE | 2018-12-27 19:45 | NUR ---
CASE MANAGEMENT: REVIEW 12/27/2018 SI:SEPSIS. ARF. T 98.1 HR 81 RR 18 B/P 131/57 SATS 100% ON RA WBC 19.2 HGB 7.9 HCT 23.2 BUN 24 CR 1.6 CA 8.4 IS:IVF @ 75 mL/HR CEFTRIAXONE IV Q24H FLAGYL GT Q8H MED/SURG STATUS
[2018-12-27 20:00] VITALS: BP 137/61
[2018-12-28] VITALS: BP 145/69
[2018-12-28 04:00] VITALS: BP 140/75
[2018-12-28] MEDS: metroNIDAZOLE 500mg tab GT SCH ×2 (05:27→13:48)
--- NOTE | 2018-12-28 07:01 | NUR ---
HAND-OFF: Report given to JORGE Sorto.
[2018-12-28 07:57] LABS: HEMATOCRIT 21.4 % (42.0-52.0); HEMOGLOBIN 7.4 G/DL (14.2-18.0); MEAN CORPUSCULAR VOLUME 93 FL (80-99); PLATELET COUNT 231 K/UL (150-450); RED BLOOD COUNT 2.31 M/UL (4.70-6.10); RED CELL DISTRIBUTION WIDTH 12.9 % (11.6-14.8); WHITE BLOOD COUNT 12.4 K/UL (4.8-10.8)
[2018-12-28 08:00] VITALS: BP 136/80
--- NOTE | 2018-12-28 08:14 | NUR ---
NURSE NOTES: Patient is asleep. Tube feeding is running at 35 ml/hr. HOB is elevated. Patient is on room air, no s/s of distress. Side rails are up X3. Bed is locked and in lowest position. Will continue to monitor.
[2018-12-28 08:23] LABS: ALANINE AMINOTRANSFERASE 13 U/L (12-78); ALBUMIN/GLOBULIN RATIO 0.4 (1.0-2.7); ALKALINE PHOSPHATASE 42 U/L (46-116); ANION GAP 10 mmol/L (5-15); ASPARTATE AMINO TRANSFERASE 18 U/L (15-37); BILIRUBIN,TOTAL 0.2 MG/DL (0.2-1.0); BLOOD UREA NITROGEN 22 mg/dL (7-18); CALCIUM 8.5 MG/DL (8.5-10.1); CARBON DIOXIDE 24 MMOL/L (21-32); CHLORIDE 105 MMOL/L (98-107); CREATININE 1.4 MG/DL (0.55-1.30); POTASSIUM 3.6 MMOL/L (3.5-5.1); SODIUM 139 MMOL/L (136-145)
[2018-12-28] MEDS: Heparin 5000 units/ml inj SUBQ SCH (09:00)
--- NOTE | 2018-12-28 11:27 | NUR ---
HAND-OFF: Report given to JORGE Jesus.
--- NOTE | 2018-12-28 11:57 | NUR ---
RD ASSESSMENT & RECOMMENDATIONS SEE CARE ACTIVITY FOR COMPLETE ASSESSMENT DAILY ESTIMATED NEEDS: Needs based on Underweight/ 49kg 30-35 kcals/kg 1592-9615 total kcals 1-1.5 g protein/kg 49-73 g total protein 25-30 mL/kg 8475-6661 total fluid mLs NUTRITION DIAGNOSIS: * Swallowing difficulty R/T dysphagia as evidenced by pt is PEG dep, NPO at this time. CURRENT TF:Glucerna 1.2 @ 35ml/hr x 24 hrs ENTERAL NUTRITION RECOMMENDATIONS: Glucerna 1.2 @ 55ml/hr x 24 hrs to provide 1320ml, 1584kcal, 79g prot, 1062ml free water * As medically appropriate, advance Glucerna 1.2 by 10ml q 4-6 hrs as tolerated to goal rate of 55ml/hr. * HOB over 30 degrees/ water flush per MD ADDITIONAL RECOMMENDATIONS: * Per SNF, pt is 5'7" obtained 07/03/18 * Obtain CALIBRATED bedscale * Monitor lytes closely, replete as needed * Accucheck w/ SSI once TF resumes- h/o DM * case resolution specialist eval for sacral wound -> Add Jermaine 1pkt BID once able to give via PEG .
[2018-12-28 12:00] VITALS: BP 130/80
[2018-12-28] MEDS: cefTRIAXone 1 GM in D5W 55 ML IVPB SCH (12:03)
--- NOTE | 2018-12-28 15:41 | NUR ---
NURSE NOTES: Sacral dressing changed.
[2018-12-28 16:00] VITALS: BP 149/59
--- NOTE | 2018-12-28 16:17 | General Progress Note ---
Assessment/Plan Assessment/Plan UTI - IV Abx Hyponatremia, volume depletion . Resolved. Severe anemia of Chr. Dis. Restart ALEAH. DC to SNF. Subjective Allergies: Coded Allergies: No Known Allergies (Verified , 12/28/06) Subjective Much more alert. Objective Last 24 Hour Vital Signs Date Time Temp Pulse Resp B/P (MAP) Pulse Ox O2 Delivery O2 Flow Rate FiO2 12/28/18 12:00 98.2 64 20 130/80 (97) 98 12/28/18 08:00 97.7 85 18 136/80 (98) 100 12/28/18 08:00 Room Air 12/28/18 04:00 97.9 86 20 140/75 (96) 100 12/28/18 00:00 97.9 88 20 145/69 (94) 99 12/27/18 22:01 Room Air 12/27/18 20:00 97.5 86 20 137/61 (86) 97 Intake and Output 12/27/18 12/28/18 19:00 07:00 Intake Total 35 ml 860 ml Balance 35 ml 860 ml Intake Free Water 100 ml IV Total 375 ml Tube Feeding 35 ml 385 ml # Voids 2 # Bowel Movements 1 Laboratory Tests 12/28/18 06:40: White Blood Count 12.4H, Red Blood Count 2.31L, Hemoglobin 7.4L, Hematocrit 21.4L, Mean Corpuscular Volume 93, Mean Corpuscular Hemoglobin 31.9H, Mean Corpuscular Hemoglobin Concent 34.5, Red Cell Distribution Width 12.9, Platelet Count 231, Mean Platelet Volume 6.6, Neutrophils (%) (Auto) , Lymphocytes (%) ( Auto) , Monocytes (%) (Auto) , Eosinophils (%) (Auto) , Basophils (%) (Auto) , Differential Total Cells Counted 100, Neutrophils % (Manual) 87H, Lymphocytes % (Manual) 4L, Monocytes % (Manual) 3, Eosinophils % (Manual) 5H, Basophils % ( Manual) 1, Band Neutrophils 0, Platelet Estimate Adequate, Platelet Morphology Normal, Red Blood Cell Morphology Normal, Sodium Level 139, Potassium Level 3.6 , Chloride Level 105, Carbon Dioxide Level 24, Anion Gap 10, Blood Urea Nitrogen 22H, Creatinine 1.4H, Estimat Glomerular Filtration Rate , Glucose Level 119H, Calcium Level 8.5, Total Bilirubin 0.2, Aspartate Amino Transf (AST/ SGOT) 18, Alanine Aminotransferase (ALT/SGPT) 13, Alkaline Phosphatase 42L, Total Protein 6.5, Albumin 2.0L, Globulin 4.5, Albumin/Globulin Ratio 0.4L Height (Feet): 5 Height (Inches): 8.00 Weight (Pounds): 158 Objective CV RR Lungs CTA Abd SNT. BS + E No CCE Ann López MD Dec 28, 2018 16:17
[2018-12-28] MEDS ORDERED: RETACRIT3000 UNIT/ SUBQ (16:19)
[2018-12-28] MEDS ORDERED: HEPARIN SO5000 UNIT2 SUBQ (16:19)
[2018-12-28] MEDS ORDERED: FLAGYL500 MG GT (16:19)
--- NOTE | 2018-12-28 17:33 | NUR ---
NURSE NOTES: Gave report to licensed nurse Basia at [facility] over the phone.
[2018-12-28] MEDS ORDERED: Tubing IV Secondary IV ONE (18:54)
--- NOTE | 2018-12-28 18:55 | NUR ---
NURSE NOTES: Patient is discharged. IV removed and site covered. ID band removed and disposed of. Condom catheter left on per amubulance request. Patient needs met and patient kept comfortable at all times.
[2018-12-28] MEDS ORDERED: Epoetin Alfa-EPBX (NON ESRD) 3000 units/ml vial SUBQ SCH (21:00)
--- NOTE | 2018-12-30 08:24 | Discharge Summary ---
Discharge Summary Discharge Summary _ DATE OF ADMISSION: 12/22/2018 DATE OF DISCHARGE: 12/28 DISCHARGED BY: Dr. López REASON FOR ADMISSION: 83 years old male, resident of prison facility, with past medical history of chronic kidney disease, recurrent acute renal failure, recurrent aspiration episodes, chronic hyperkalemia, on Kayexalate, recurrent gastroesophagitis, recurrent multidrug-resistant urinary tract infection , anemia of chronic kidney disease, type 2 diabetes mellitus, hypertension, hypertensive cardiovascular disease, was sent from the prison facility due to abnormal laboratory values. Patient had gradual increase in BUN/creatinine and sodium. Patient by himself was demented and unable to provide any history. Upon evaluation vital signs were stable. Laboratory work revealed leukocytosis WBC 15.7, hemoglobin 11.2, hematocrit 34.3. BUN 86, creatinine 2.5. Sodium 149. Lactic acid 0.7. Glucose 183. Troponin negative. Pro BNP 1097. Albumin 3.4. Stable LFT. Urinalysis revealed +3 protein, hematuria, pyuria , +2 leukocyte esterase, few bacteria. EKG revealed normal sinus rhythm with right bundle branch block. Chest x-ray revealed no acute findings. Patient subsequently was admitted for further management. CONSULTANTS: ID specialist HOSPITAL COURSE: Patient admitted and started on free water rehydration. Patient started on empiric antibiotic. ID specialist followed. Blood cultures were negative. Urine culture revealed mixed urogenital contaminants. Stool for C. difficile was negative. Patient exhibited persistent leukocytosis, diarrhea. Repeated blood culture on 12/27 were negative. Repeated urine culture on revealed mixed urogenital contaminants. Repeated stool for C difficile was negative despite diarrhea. Patient was afebrile, but exhibited leukocytosis. Antibiotic regimen provided as per ID specialist recommendation. Per ID specialist patient had sepsis, possibly due to UTI or possible C. difficile colitis, as he exhibited diarrhea despite negative C. difficile stool. Leukocytosis eventually was trending down. Follow-up chest x-ray revealed no significant changes or acute findings. Renal parameters and electrolytes were closely monitored. Electrolytes corrected as needed, and nephrotoxins were avoided. Prior to discharge , creatinine from 2.5 down to 1.4 and BUN from 86 down to 22. Hemoglobin and hematocrit were closely monitored with goal to keep hemoglobin above 7. Hemoglobin trended down with IV hydration. Patient started on Epogen. DVT prophylaxis provided. Blood pressure and blood sugar were closely monitored. Per associate vice president, patient was at high risk for malnutrition. Tube feeding formula and rate provided as per registered dietitian recommendation. Patient also started on protein supplements for nutritional support. Strict aspiration precautions were maintained. Patient was stable for discharge to prison facility for continuation of care. FINAL DIAGNOSES: Chronic kidney disease Recurrent acute renal failure Sepsis due to possible UTI Recurrent aspiration episodes Chronic hyperkalemia on Kayexalate Recurrent gastroesophagitis Recurrent multidrug-resistant urinary tract infection Anemia of chronic kidney disease Recurrent urosepsis ESBL E. coli and Proteus Type 2 diabetes mellitus Hypertension Hypertensive cardiovascular disease. G tube feeding Dementia DISCHARGE MEDICATIONS: See Medication Reconciliation list. DISCHARGE INSTRUCTIONS: Patient was discharged to the prison facility. Follow up with medical doctor at the facility. I have been assigned to dictate discharge summary for this account. I was not involved in the patient's management. Mari Edmond NP Dec 30, 2018 08:24
== END 2018-12-28 18:55 | DRG 872 ==
LOC: EDBD 13:49 → EMR 15:15 → 4E 15:26 → EDBEDREQ 17:17 → 4E 12-26 05:48
DX: A41.9 Sepsis, unspecified organism (principal); N17.9 Acute kidney failure, unspecified; N39.0 Urinary tract infection, site not specified; Z43.1 Encounter for attention to gastrostomy; E86.0 Dehydration; I13.10 Hypertensive heart and chronic kidney disease without heart failure, with stage 1 through stage 4 chronic kidney disease, or unspecified chronic kidney disease; N18.9 Chronic kidney disease, unspecified; E11.22 Type 2 diabetes mellitus with diabetic chronic kidney disease; Z79.4 Long term (current) use of insulin; F03.90 Unspecified dementia, unspecified severity, without behavioral disturbance, psychotic disturbance, mood disturbance, and anxiety; E87.5 Hyperkalemia; D63.1 Anemia in chronic kidney disease; K20.8 Other esophagitis; B96.20 Unspecified Escherichia coli [E. coli] as the cause of diseases classified elsewhere; Z16.12 Extended spectrum beta lactamase (ESBL) resistance; R13.10 Dysphagia, unspecified
CPT/HCPCS: 36415; 71045; 80048; 80053; 81001; 81003; 82962; 83605; 83735; 83880; 84484; 85007; 85025; 85610; 85730; 86850; 86900; 86901; 87040; 87081; 87086; 87324; 93005; 96360; 99285

== ENCOUNTER 2019-01-27 13:10 | Inpatient (IN) | payer MEDICARE, OTHER ==
[~2019-01-27] VITALS: Ht 165.1 cm; Wt 56.7 kg
[~2019-01-27 13:10] MED LIST changes: +FENOFIBRATE130 MG GT; +FENOFIBRATE134 M1 GT; +FLAGYL500 MG GT; +KALEXATE15 GM GT; +RETACRIT3000 UNIT/ SUBQ
[2019-01-27] MEDS ORDERED: PROCRIT10000 UNIT SUBQ (13:20)
[2019-01-27] MEDS ORDERED: FERROUS SU220 MG/53 GT (13:20)
[2019-01-27 13:54] VITALS: BP 126/70
--- NOTE | 2019-01-27 13:54 | NUR ---
ED Nurse Note:PT. WAS biba FROM SNF with abnormal labs values, A/Ox2, G tube, blood was sent to labs and IV fluids started
[2019-01-27 13:59] LABS: BASOPHILS % (AUTO) 1.1 % (0.0-2.0); EOSINOPHILS % (AUTO) 1.5 % (0.0-3.0); HEMOGLOBIN 10.4 G/DL (14.2-18.0); LYMPHOCYTES % (AUTO) 9.5 % (20.0-45.0); MEAN CORPUSCULAR VOLUME 92 FL (80-99); MONOCYTES % (AUTO) 3.2 % (1.0-10.0); NEUTROPHILS % (AUTO) 84.7 % (45.0-75.0); PLATELET COUNT 384 K/UL (150-450); RED BLOOD COUNT 3.38 M/UL (4.70-6.10); RED CELL DISTRIBUTION WIDTH 12.2 % (11.6-14.8); WHITE BLOOD COUNT 14.9 K/UL (4.8-10.8)
--- NOTE | 2019-01-27 14:19 | NUR ---
ED Nurse Note:pt. had sacral skin discoloration from fully resurfaced sacral decube
[2019-01-27 14:34] LABS: APPEARANCE,URINE VERY CLOUDY; BILIRUBIN, URINE NEGATIVE (NEGATIVE); COLOR,URINE PALE YELLOW; GLUCOSE, URINE (UA) NEGATIVE (NEGATIVE); KETONES,URINE NEGATIVE (NEGATIVE); LEUKOCYTE ESTERASE ,URINE 3+ (NEGATIVE); NITRITE,URINE NEGATIVE (NEGATIVE); PH,URINE 8 (4.5-8.0); PROTEIN,URINE 3+ (NEGATIVE); UROBILINOGEN,URINE NORMAL MG/DL (0.0-1.0)
--- NOTE | 2019-01-27 14:40 | Emergency Room Report ---
History of Present Illness General Chief Complaint: Abnormal Labs Source: Patient, Medical Record, EMS Present Illness HPI Patient was asked with worsening renal insufficiency Patient himself cannot provide appropriate history There was no reports of chest pain or shortness of breath There was no reports of vomiting or diarrhea patient has not been eating appropriately for the past several days No obvious reports of fevers Allergies: Coded Allergies: No Known Allergies (Verified , 12/28/06) Patient History Limited by: medical condition Past Medical History: see triage record Pertinent Family History: unable to obtain Reviewed Nursing Documentation: PMH: Agreed; PSxH: Agreed Nursing Documentation-PMH Hx Cardiac Problems: Yes Hx Hypertension: Yes Hx Diabetes: Yes Hx Cancer: No Hx Gastrointestinal Problems: Yes Hx Dialysis: No - CKD, ARF Hx Neurological Problems: Yes - ALOC, 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 Review of Systems All Other Systems: limited - Other than the ones mentioned in the history of present illness all others are reviewed however they do stay limited due to the patient's mental status Physical Exam Vital Signs Date Time Temp Pulse Resp B/P (MAP) Pulse Ox O2 Delivery O2 Flow Rate FiO2 01/27/19 13:13 97.9 86 20 126/70 100 Room Air Sp02 EP Interpretation: reviewed, normal General Appearance: no apparent distress Head: normocephalic, atraumatic Eyes: bilateral eye PERRL, bilateral eye EOMI ENT: dry mucus membranes Neck: supple, no meningismus Respiratory: lungs clear, no retraction, no accessory muscle use Cardiovascular #1: regular rate, rhythm Gastrointestinal: non tender, soft Musculoskeletal: other - No obvious focal deficit however not following all commands Neurologic: responsive - To physical stimuli Skin: no rash Lymphatic: no adenopathy Medical Decision Making Diagnostic Impression: Primary Impression: Renal insufficiency Additional Impressions: Dehydration UTI (urinary tract infection) Hyperkalemia ER Course Patient is a fairly complex patient with multiple differential to consideration including but not limited to cardiac cardiopulmonary and vascular emergencies Patient's blood work reveals worsening renal insufficiency Potassium levels elevated, white blood cell count also elevated concern for uti and infectious process and patient admitted for further inpatient care Labs Test 01/27/19 13:45 01/27/19 14:26 White Blood Count 14.9 K/UL (4.8-10.8) Red Blood Count 3.38 M/UL (4.70-6.10) Hemoglobin 10.4 G/DL (14.2-18.0) Hematocrit 31.0 % (42.0-52.0) Mean Corpuscular Volume 92 FL (80-99) Mean Corpuscular Hemoglobin 30.7 PG (27.0-31.0) Mean Corpuscular Hemoglobin Concent 33.4 G/DL (32.0-36.0) Red Cell Distribution Width 12.2 % (11.6-14.8) Platelet Count 384 K/UL (150-450) Mean Platelet Volume 7.4 FL (6.5-10.1) Neutrophils (%) (Auto) 84.7 % (45.0-75.0) Lymphocytes (%) (Auto) 9.5 % (20.0-45.0) Monocytes (%) (Auto) 3.2 % (1.0-10.0) Eosinophils (%) (Auto) 1.5 % (0.0-3.0) Basophils (%) (Auto) 1.1 % (0.0-2.0) Troponin I 0.000 ng/mL (0.000-0.056) Rhythm Strip Diag. Results EP Interpretation: yes Rate: 78 Rhythm: NSR, no PVC's, no ectopy Chest X-Ray Diagnostic Results Chest X-Ray Diagnostic Results : Chest X-Ray Ordered: Yes # of Views/Limited/Complete: 1 View Indication: Shortness of Breath EP Interpretation: Yes Interpretation: no effusion, no pneumothorax, other - Left lower lobe atelectasis Impression: No acute disease - Left lower lobe atelectasis Electronically Signed by: Deedee Medellin DO Last Vital Signs Date Time Temp Pulse Resp B/P (MAP) Pulse Ox O2 Delivery O2 Flow Rate FiO2 01/27/19 13:54 97.9 20 126/70 100 Room Air 01/27/19 13:13 86 Status: improved Disposition: ADMITTED INPATIENT Condition: Serious Referrals: Ann López MD (PCP) Deedee Medellin DO January 27, 2019 14:40
--- NOTE | 2019-01-27 14:40 | NUR ---
ED Nurse Note:called 4 east to give report- nurses not ready
--- NOTE | 2019-01-27 14:41 | Diagnostic Imaging Report ---
Indication: Shortness of breath Technique: One view of the chest Comparison: 12/24/2018 Findings: Reticular interstitial markings are seen at the left lung base, unchanged. There is a right infrahilar atelectasis. Lungs and pleural spaces are otherwise clear. Heart size is upper limits of normal. The aorta is tortuous and calcified. There is what appears to be a gastrostomy tube in place. Impression: Left basilar reticular markings, unchanged from prior exam and most likely representing chronic interstitial fibrotic changes. No definite acute process.
[2019-01-27] MEDS ORDERED: cefTRIAXone 1 GM in D5W 55 ML IVPB ONE (14:45)
--- NOTE | 2019-01-27 14:50 | NUR ---
NURSE NOTES: patient admitted to 419-2 from ER. alert, verbally responsive. forgetful and confused at times. no respiratory distress noted. no c/o pain at this time. IV on RAC 20g. intact. skin assessment done. redness on both heels. no open skin. applied optifoam. excoriation and redness on sacral area and perianal area d/t scratching by patient. applied optifoam. wound pictures taken and uploaded. GT site on mid abd. intact. no residual. bed in the lowest position. alarm on. call light within reach.
--- NOTE | 2019-01-27 15:21 | NUR ---
ED Nurse Note:called report to 4 rl Luo pt. was transfered to floor
--- NOTE | 2019-01-27 16:00 | NUR ---
NURSE NOTES: paged dr. harvey for admission orders. no call back received yet.
--- NOTE | 2019-01-27 17:30 | NUR ---
NURSE NOTES: paged Dr. harvey 2nd time for getting admission orders. no call back received at this time.
--- NOTE | 2019-01-27 19:21 | NUR ---
HAND-OFF: Report given to Juan Carlos Gordon RN.
--- NOTE | 2019-01-27 19:25 | NUR ---
NURSE NOTES: Pt received from JORGE Pennington alert and oriented x3 with no acute s/s of distress. IV site asymptomatic and patent. Bed in lowest position, call light and belongings within reach.
[2019-01-27 20:00] VITALS: BP 137/68
[2019-01-27] MEDS: Heparin 5000 units/ml inj SUBQ SCH (21:00)
[2019-01-27] MEDS: NovoLOG Insulin Flexpen SUBQ SCH (21:00)
[2019-01-28] VITALS: BP 131/59
--- NOTE | 2019-01-28 02:15 | NUR ---
NURSE NOTES: Pt started on Gtube feed at 10 mL/hr at 0016. Gtube feed tolerated so far - 10 ml gastric residual. No complaints of abdominal pain or distention. Will continue to monitor and increase rate if able to tolerate.
[2019-01-28 04:00] VITALS: BP 135/77
[2019-01-28] MEDS: NovoLOG Insulin Flexpen SUBQ SCH ×4 (05:50→21:00)
--- NOTE | 2019-01-28 07:16 | NUR ---
NURSE NOTES: received report from Juan Carlos Gordon RN. patient in bed. alert. verbally responsive. no c/o pain at this time. IV RAC intact. running NS 75/hr. GTF intact. condom cath in place. bed in the lowest position . call light within reach. will continue to monitor,
[2019-01-28 07:46] LABS: BASOPHILS % (AUTO) 0.7 % (0.0-2.0); EOSINOPHILS % (AUTO) 2.6 % (0.0-3.0); HEMATOCRIT 26.3 % (42.0-52.0); HEMOGLOBIN 8.5 G/DL (14.2-18.0); LYMPHOCYTES % (AUTO) 7.2 % (20.0-45.0); MEAN CORPUSCULAR VOLUME 92 FL (80-99); MONOCYTES % (AUTO) 5.8 % (1.0-10.0); NEUTROPHILS % (AUTO) 83.7 % (45.0-75.0); PLATELET COUNT 420 K/UL (150-450); RED BLOOD COUNT 2.85 M/UL (4.70-6.10); RED CELL DISTRIBUTION WIDTH 12.5 % (11.6-14.8); WHITE BLOOD COUNT 12.6 K/UL (4.8-10.8)
[2019-01-28 08:00] VITALS: BP 130/74
[2019-01-28 08:24] LABS: ALANINE AMINOTRANSFERASE 25 U/L (12-78); ALBUMIN 2.8 G/DL (3.4-5.0); ALBUMIN/GLOBULIN RATIO 0.5 (1.0-2.7); ALKALINE PHOSPHATASE 41 U/L (46-116); ANION GAP 10 mmol/L (5-15); ASPARTATE AMINO TRANSFERASE 34 U/L (15-37); BILIRUBIN,TOTAL 0.2 MG/DL (0.2-1.0); BLOOD UREA NITROGEN 56 mg/dL (7-18); CALCIUM 8.8 MG/DL (8.5-10.1); CARBON DIOXIDE 24 MMOL/L (21-32); CHLORIDE 99 MMOL/L (98-107); CKMB 1.1 NG/ML (0.0-3.6); CREATINE KINASE 42 U/L (26-308); CREATININE 1.9 MG/DL (0.55-1.30); POTASSIUM 5.9 MMOL/L (3.5-5.1); SODIUM 132 MMOL/L (136-145)
[2019-01-28] MEDS: Heparin 5000 units/ml inj SUBQ SCH ×2 (09:03→22:35)
[2019-01-28 12:00] VITALS: BP 135/80
--- NOTE | 2019-01-28 12:02 | NUR ---
RD ASSESSMENT & RECOMMENDATIONS SEE CARE ACTIVITY FOR COMPLETE ASSESSMENT DAILY ESTIMATED NEEDS: Needs based on Underweight, wounds/ 49.5kg 30-35 kcals/kg 5370-2254 total kcals 1.25-1.5 g protein/kg 62-74 g total protein 25-30 mL/kg 8273-4686 total fluid mLs NUTRITION DIAGNOSIS: * Increased kcal and pro needs r/t underweight status and wound healing as evidenced by pt @74% [place] Body Weight, BMI underweight per guidelines, w/ partial thickness wounds. * Swallowing difficulty R/T dysphagia as evidenced by pt is PEG dep CURRENT TF: Glucerna 1.5 @ 50ml/hr x 20 ENTERAL NUTRITION RECOMMENDATIONS: Glucerna 1.2 @ 55ml/hr x 24 hrs to provide 1320ml, 1584kcal, 79g prot, 1062ml free water * As medically appropriate, rec TF change to Glucerna 1.2. Start @25ml/hr for 6 hrs, advance by 10ml q 4-6 hrs as tolerated to goal rate of 55ml/hr. * HOB over 30 degrees/ water flush per MD ADDITIONAL RECOMMENDATIONS: * Per SNF, HT: 5'7", WT: 109#. * Obtain CALIBRATED bedscale * MONITOR K and LYTES; NEED FOR RENAL FORMULA * Accucheck w/ SSI once TF resumes- h/o DM * sports medicine specialist eval for sacral wound -> Add Jermaine 1pkt BID (F/up w/ eval) .
--- NOTE | 2019-01-28 12:36 | NUR ---
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 DEHYDRATION VS: BP 126/70, P 86, T 97.9, RR 20, SpO2 100 WBC 14.9, RBC 3.38, H&H 10.4/31.0, Na 132, K 5.9, BUN 56, Cr 1.9 CXR: Left basilar reticular markings, unchanged from prior exam and most likely representing chronic interstitial fibrotic changes. IS:NS x1L IV CEFTRIAXONE 55ml IVPB LEVOFLOXACIN 100ml IVPB NOVOLOG SUBQ HEPARIN SUBQ ADMITTED TO MED/SURG DCP: RETURN TO [facility]
[2019-01-28 16:00] VITALS: BP 138/79
--- NOTE | 2019-01-28 17:44 | Cardiology Report ---
APPROVED REPORT EKG Measurement Heart [id number] Normal sinus rhythm Possible Left atrial enlargement Right bundle branch block Abnormal ECG
--- NOTE | 2019-01-28 18:00 | NUR ---
NURSE NOTES: seen by dr. harvey. patient potassium level was 5.9 this morning. no order. paged dr. harvey. no call back yet.
[2019-01-28] MEDS ORDERED: LANSOPRAZOLE30 MG ORAL (18:31)
--- NOTE | 2019-01-28 19:20 | NUR ---
HAND-OFF: Report given to JORGE Baptiste.
[2019-01-28 20:26] VITALS: BP 147/73
--- NOTE | 2019-01-28 20:45 | NUR ---
NURSE NOTES: Patient in bed, awake, alert to name, place, forgetful and confused at times. No s/s respiratory distress noted. No c/o pain at this time. IV on RAC 20, intact, running IV fluids. Gtube placement auscultated, no residual noted, tolerating tube feeding. HOB elevated, bed in the lowest position,call light within reach. Will continue to monitor.
--- NOTE | 2019-01-28 20:46 | NUR ---
NURSE NOTES: PER AM NURSE, JORGE WORTHY, SHE HAD PAGED DR. ALDRIDGE EARLIER REGARDING PATIENT'S POTASSIUM LEVEL 5.[address] ALDRIDGE AGAIN, AWAITING RESPONSE. CHARGE NURSE AWARE.
--- NOTE | 2019-01-28 22:00 | NUR ---
NURSE NOTES: GTUBE FEEDING TURNED OFF.
[2019-01-28] MEDS: Levofloxacin 250mg/D5W 50ml IVPB SCH (22:34)
[2019-01-29] VITALS: BP 124/55
--- NOTE | 2019-01-29 | NUR ---
NURSE NOTES: GTUBE FEEDING TURNED ON.
--- NOTE | 2019-01-29 02:45 | History and Physical Report ---
DATE OF ADMISSION: 01/27/2019 CHIEF COMPLAINT: Abnormal laboratory results. HISTORY OF PRESENT ILLNESS: This is an 83-year-old [place] male from a retirement, who was sent due to grossly abnormal laboratory results, which were elevated BUN and creatinine, and abnormal sodium and potassium. The patient is demented and unable to give any further information. PAST MEDICAL HISTORY: 1. Recurrent urosepsis. 2. Organic brain syndrome. 3. Gastroesophageal reflux disease. 4. Chronic kidney disease. 5. Type 2 diabetes mellitus. USP MEDICATIONS: Tylenol p.r.n., sodium docusate, Epogen, fenofibrate, oral iron, subcutaneous heparin, NovoLog, FlexPen, Protonix, milk of magnesia, Flagyl, senna, Kayexalate, and Carafate. ALLERGIES: No known drug allergies. FAMILY HISTORY: Unable to obtain due to mental status. SOCIAL HISTORY: Unable to obtain due to mental status. REVIEW OF SYSTEMS: Unable to obtain due to mental status. PHYSICAL EXAMINATION: GENERAL: This is an elderly male, who is no acute distress. VITAL SIGNS: Blood pressure 135/80, pulse 76 and regular, respirations 18, and temperature 98.9. HEENT: Head is normocephalic and atraumatic. Pupils are equal, round, and reactive to light and accommodation consensually. NECK: Supple. Trachea midline. There was no lymphadenopathy or thyromegaly. LUNGS: Clear to auscultation and percussion. HEART: Regular rate and rhythm without rubs, murmurs, or gallops. ABDOMEN: Soft and nontender. There is a G-tube. NEUROLOGIC: He is confused. There are no gross focal findings. LABORATORY AND ANCILLARY DATA: On admission, hematocrit 31, today 26.3. On admission, white count 14,900, today 12,600. Chemistry today, sodium 132, potassium 5.9, BUN 56, and creatinine 1.9. Urinalysis, uza-itxkvpni-ie-count white blood cells. ASSESSMENT: 1. Recurrent urosepsis. 2. Hyponatremia and hyperkalemia. 3. Organic brain syndrome. 4. Gastroesophageal reflux disease. 5. Chronic kidney disease. 6. Type 2 diabetes mellitus. PLAN: 1. Intravenous fluid rehydration with relatively normotonic solution without potassium. 2. Intravenous antibiotics. 3. Epogen. Ann López M.D. DR: ADALBERTO JOB#: [id number] CC:
[2019-01-29 04:00] VITALS: BP 149/94
[2019-01-29] MEDS: NovoLOG Insulin Flexpen SUBQ SCH ×4 (06:04→22:21)
--- NOTE | 2019-01-29 06:38 | NUR ---
NURSE NOTES: PATIENT REFUSED AM LAB DRAW STATING HE WAS TIRED, HAND GRINDER WILL AGAIN AT A LATER TIME.
--- NOTE | 2019-01-29 07:25 | NUR ---
HAND-OFF: Report given to LOAN CHUNG RN.
--- NOTE | 2019-01-29 07:55 | NUR ---
NURSE NOTES: Received patient on bed, awake. IV site intact and patent. Bed in low and locked position, call light in reach. Gtube intact and patent. Dressings dry and intact. No signs of respiratory distress or pain. Room board updated, will continue to monitor.
[2019-01-29 08:00] VITALS: BP 161/66
[2019-01-29] MEDS: Heparin 5000 units/ml inj SUBQ SCH ×2 (09:21→22:21)
[2019-01-29 09:49] LABS: HEMATOCRIT 26.5 % (42.0-52.0); HEMOGLOBIN 8.9 G/DL (14.2-18.0); MEAN CORPUSCULAR VOLUME 92 FL (80-99); PLATELET COUNT 404 K/UL (150-450); RED BLOOD COUNT 2.88 M/UL (4.70-6.10); RED CELL DISTRIBUTION WIDTH 12.4 % (11.6-14.8); WHITE BLOOD COUNT 13.1 K/UL (4.8-10.8)
--- NOTE | 2019-01-29 10:00 | NUR ---
NURSE NOTES: Gtube feeding stopped. Will resume at 1200 hours
[2019-01-29 10:12] LABS: ANION GAP 6 mmol/L (5-15); BLOOD UREA NITROGEN 49 mg/dL (7-18); CALCIUM 9.3 MG/DL (8.5-10.1); CARBON DIOXIDE 27 MMOL/L (21-32); CHLORIDE 104 MMOL/L (98-107); CREATININE 1.9 MG/DL (0.55-1.30); SODIUM 136 MMOL/L (136-145)
[2019-01-29 10:14] LABS: POTASSIUM 6.3 MMOL/L (3.5-5.1)
--- NOTE | 2019-01-29 10:25 | NUR ---
NURSE NOTES: Lab reports potassium at 6.3. message left for MD López. Awaiting call back.
[2019-01-29 12:00] VITALS: BP 134/65
--- NOTE | 2019-01-29 12:00 | NUR ---
NURSE NOTES: Gtube feeding resumed.
[2019-01-29] MEDS: Sodium Polystyrene Sulfonate 15gm Powder GT SCH (12:20)
[2019-01-29 16:00] VITALS: BP 138/63
--- NOTE | 2019-01-29 16:53 | General Progress Note ---
Assessment/Plan Assessment/Plan: Hyponatremia + Hyperkalemia se Rx UTI ---Rx Subjective Allergies: Coded Allergies: No Known Allergies (Verified , 12/28/06) Subjective Confused Objective Last 24 Hour Vital Signs Date Time Temp Pulse Resp B/P (MAP) Pulse Ox O2 Delivery O2 Flow Rate FiO2 01/29/19 16:00 98.6 85 18 138/63 (88) 100 01/29/19 12:00 98.5 90 18 134/65 (88) 100 01/29/19 09:00 Room Air 01/29/19 08:00 97.4 89 18 161/66 (97) 99 01/29/19 04:00 98.1 90 18 149/94 (112) 99 01/29/19 00:00 97.2 89 18 124/55 (78) 96 01/28/19 23:58 Room Air 01/28/19 20:26 98.3 89 18 147/73 (97) 100 Intake and Output 01/28/19 01/29/19 19:00 07:00 Intake Total 2030 ml 1475 ml Balance 2030 ml 1475 ml Intake Free Water 675 ml 0 ml IV Total 900 ml 800 ml Tube Feeding 455 ml 450 ml Blood Product 225 ml # Voids 2 # Bowel Movements 1 Laboratory Tests 01/29/19 09:30: White Blood Count 13.1H, Red Blood Count 2.88L, Hemoglobin 8.9L, Hematocrit 26.5L, Mean Corpuscular Volume 92, Mean Corpuscular Hemoglobin 30.9, Mean Corpuscular Hemoglobin Concent 33.5, Red Cell Distribution Width 12.4, Platelet Count 404, Mean Platelet Volume 5.1L, Neutrophils (%) (Auto) , Lymphocytes (%) ( Auto) , Monocytes (%) (Auto) , Eosinophils (%) (Auto) , Basophils (%) (Auto) , Differential Total Cells Counted 100, Neutrophils % (Manual) 88H, Lymphocytes % (Manual) 8L, Monocytes % (Manual) 3, Eosinophils % (Manual) 1, Basophils % ( Manual) 0, Band Neutrophils 0, Platelet Estimate Adequate, Platelet Morphology Normal, Red Blood Cell Morphology Normal, Sodium Level 136, Potassium Level 6.3* H, Chloride Level 104, Carbon Dioxide Level 27, Anion Gap 6, Blood Urea Nitrogen 49H, Creatinine 1.9H, Estimat Glomerular Filtration Rate , Glucose Level 149H, Calcium Level 9.3, Magnesium Level 1.8 Height (Feet): 5 Height (Inches): 5.00 Weight (Pounds): 135 Objective CV RR Lungs CTA Abd SNT BS + E No CCe Ann López MD January 29, 2019 16:53
--- NOTE | 2019-01-29 19:22 | NUR ---
HAND-OFF: Report given to JORGE Palacios.
--- NOTE | 2019-01-29 19:23 | NUR ---
NURSE NOTES: Patient in bed, awake. No s/s respiratory distress noted. No c/o pain at this time. IV on RAC 20, intact, running IV fluids. Gtube running, no residual noted, tolerating tube feeding. HOB elevated, bed in the lowest position,call light within reach. Will continue to monitor.
[2019-01-29 20:13] VITALS: BP 119/61
[2019-01-29] MEDS: Levofloxacin 250mg/D5W 50ml IVPB SCH (21:59)
--- NOTE | 2019-01-29 22:00 | NUR ---
NURSE NOTES: GTUBE FEEDING OFF.
--- NOTE | 2019-01-30 | NUR ---
NURSE NOTES: GTUBE FEEDING ON.
[2019-01-30 00:21] VITALS: BP 121/51
[2019-01-30 04:00] VITALS: BP 119/52
--- NOTE | 2019-01-30 05:42 | NUR ---
NURSE NOTES: RECEIVED CALL FROM [facility], [facility], PATIENT IS POSITIVE FOR ESBL URINE. PAGED DR. EMERSON MD CALLED BACK AND WAS NOTIFIED, NO NEW ORDERS GIVEN. PER , "I'LL TAKE CARE OF IT LATER." CHARGE NURSE AWARE.
[2019-01-30] MEDS: NovoLOG Insulin Flexpen SUBQ SCH ×6 (06:44→21:47)
[2019-01-30 07:03] LABS: ANION GAP 8 mmol/L (5-15); BLOOD UREA NITROGEN 53 mg/dL (7-18); CALCIUM 9.1 MG/DL (8.5-10.1); CARBON DIOXIDE 29 MMOL/L (21-32); CHLORIDE 105 MMOL/L (98-107); POTASSIUM 5.3 MMOL/L (3.5-5.1); SODIUM 141 MMOL/L (136-145)
--- NOTE | 2019-01-30 07:49 | NUR ---
HAND-OFF: Report given to GUICHO SPEARS RN.
[2019-01-30 08:00] VITALS: BP 138/65
--- NOTE | 2019-01-30 08:00 | NUR ---
NURSE NOTES: patient is awake and alert,respirations unlabored,G-tube feedings as ordered,will restart feedings as ordered at 12noon.No residual at this time.IV fluids as ordered.HOB is elevated.Call light within reach,bed alarm is on.
[2019-01-30] MEDS: Sodium Polystyrene Sulfonate 15gm Powder GT SCH (08:58)
[2019-01-30] MEDS: Heparin 5000 units/ml inj SUBQ SCH ×2 (08:59→20:47)
[2019-01-30 12:00] VITALS: BP 140/62
--- NOTE | 2019-01-30 13:13 | General Progress Note ---
Assessment/Plan Assessment/Plan: Hyponatremia + Hyperkalemia se Rx UTI ---Rx ID called for ESBL UTI Subjective Allergies: Coded Allergies: No Known Allergies (Verified , 12/28/06) Subjective Confused Objective Last 24 Hour Vital Signs Date Time Temp Pulse Resp B/P (MAP) Pulse Ox O2 Delivery O2 Flow Rate FiO2 01/30/19 08:00 98.5 84 19 138/65 (89) 100 01/30/19 04:00 98.9 88 18 119/52 (74) 100 01/30/19 00:21 98.0 89 18 121/51 (74) 97 01/29/19 23:31 Room Air 01/29/19 20:13 98.1 89 18 119/61 (80) 96 01/29/19 16:00 98.6 85 18 138/63 (88) 100 Intake and Output 01/29/19 01/30/19 19:00 07:00 Intake Total 700 ml 1000 ml Balance 700 ml 1000 ml Intake Free Water 125 ml 225 ml IV Total 75 ml 425 ml Tube Feeding 500 ml 350 ml # Voids 4 Laboratory Tests 01/30/19 06:00: Sodium Level 141, Potassium Level 5.3H, Chloride Level 105, Carbon Dioxide Level 29, Anion Gap 8, Blood Urea Nitrogen 53H, Creatinine 2.0H, Estimat Glomerular Filtration Rate , Glucose Level 155H, Calcium Level 9.1 Height (Feet): 5 Height (Inches): 5.00 Weight (Pounds): 135 Objective CV RR Lungs CTA Abd SNT BS + E No CCe Ann López MD January 30, 2019 13:13
[2019-01-30 16:00] VITALS: BP 135/65
[2019-01-30 20:00] VITALS: BP 146/66
[2019-01-30] MEDS: Levofloxacin 250mg/D5W 50ml IVPB SCH (20:40)
--- NOTE | 2019-01-30 20:45 | NUR ---
NURSE NOTES: Patient in bed, awake. No s/s respiratory distress noted. No c/o pain at this time. Gtube running, no residual noted, tolerating tube feeding. HOB elevated, bed in the lowest position,call light within reach. Will continue to monitor.
--- NOTE | 2019-01-30 22:00 | NUR ---
NURSE NOTES: GTUBE FEEDING OFF
[2019-01-31] VITALS: BP 140/64
--- NOTE | 2019-01-31 | NUR ---
NURSE NOTES: GTUBE FEEDING ON
[2019-01-31 04:00] VITALS: BP 147/80
--- NOTE | 2019-01-31 05:00 | NUR ---
NURSE NOTES: PATIENT ASLEEP, V/S STABLE.
[2019-01-31] MEDS: NovoLOG Insulin Flexpen SUBQ SCH ×4 (06:37→20:18)
--- NOTE | 2019-01-31 07:15 | NUR ---
HAND-OFF: Report given to GUICHO SPEARS RN.
[2019-01-31 08:00] VITALS: BP 150/73
--- NOTE | 2019-01-31 08:11 | NUR ---
NURSE NOTES: Patient is awake and alert,respirations unlabored.IV fluids infusing as ordered.G-tube feedings on going as ordered.HOB is elevated.Bed alarm on,call light within reach.
[2019-01-31 08:13] LABS: ANION GAP 8 mmol/L (5-15); BLOOD UREA NITROGEN 54 mg/dL (7-18); CALCIUM 9.1 MG/DL (8.5-10.1); CARBON DIOXIDE 28 MMOL/L (21-32); CHLORIDE 111 MMOL/L (98-107); CREATININE 1.8 MG/DL (0.55-1.30); POTASSIUM 5.2 MMOL/L (3.5-5.1); SODIUM 147 MMOL/L (136-145)
--- NOTE | 2019-01-31 09:05 | NUR ---
[employer] SI:UTI . HYPONATREMIA . HYPERKALEMIA VS: BP 150/73, P 89, T 97.5, RR 18, SpO2 98 Na 147, K 5.2, BUN 54, CR 1.8 IS:KAYEXALATE 60gm LEVOFLOXACIN 50ml IVPB NS x1L IV HEPARIN SUBQ NOVOLOG SUBQ MED/SURG STATUS
[2019-01-31] MEDS: Heparin 5000 units/ml inj SUBQ SCH ×2 (09:53→20:10)
[2019-01-31] MEDS: Sodium Polystyrene Sulfonate 15gm Powder GT SCH (10:44)
[2019-01-31 12:00] VITALS: BP 139/79
--- NOTE | 2019-01-31 12:11 | General Progress Note ---
Assessment/Plan Assessment/Plan: Hyponatremia + Hyperkalemia se Rx UTI ---Rx ID called for ESBL UTI. Rx per ID Subjective Allergies: Coded Allergies: No Known Allergies (Verified , 12/28/06) Subjective Confused Objective Last 24 Hour Vital Signs Date Time Temp Pulse Resp B/P (MAP) Pulse Ox O2 Delivery O2 Flow Rate FiO2 01/31/19 09:00 Room Air 01/31/19 08:00 98.9 85 18 150/73 (98) 100 01/31/19 04:00 98.6 89 18 147/80 (102) 99 01/31/19 00:00 97.9 87 18 140/64 (89) 96 01/30/19 22:30 Room Air 01/30/19 20:00 99.1 91 18 146/66 (92) 100 01/30/19 16:00 97.8 19 135/65 (88) 98 Intake and Output 01/30/19 01/31/19 19:00 07:00 Intake Total 1325 ml 675 ml Balance 1325 ml 675 ml Intake Free Water 250 ml 225 ml IV Total 525 ml Tube Feeding 550 ml 450 ml # Bowel Movements 2 Laboratory Tests 01/31/19 07:35: Sodium Level 147H, Potassium Level 5.2H, Chloride Level 111H, Carbon Dioxide Level 28, Anion Gap 8, Blood Urea Nitrogen 54H, Creatinine 1.8H, Estimat Glomerular Filtration Rate , Glucose Level 126H, Calcium Level 9.1 Height (Feet): 5 Height (Inches): 5.00 Weight (Pounds): 135 Objective CV RR Lungs CTA Abd SNT BS + E No CCe Ann López MD January 31, 2019 12:11
[2019-01-31 16:00] VITALS: BP 131/81
--- NOTE | 2019-01-31 18:00 | NUR ---
NURSE NOTES: Patient resting, bed alarm on,call light within reach.
--- NOTE | 2019-01-31 18:15 | Consultation ---
DATE OF CONSULTATION: 01/31/2019 INFECTIOUS DISEASES CONSULTATION This consult is for coverage of Dr. Sarkar. REASON FOR CONSULTATION: UTI. HISTORY OF PRESENT ILLNESS: The patient is an 83-year-old male admitted on 27 of January from a nursing facility because of abnormal lab, worsening BUN and creatinine. In hospital, he was found to have leukocytosis with WBC of 14.9, hyperkalemia with potassium of 6.3. The patient is poor historian. PAST MEDICAL HISTORY: Significant for diabetes mellitus, hypertension, chronic kidney disease, history of CVA, anemia, history of G-tube placement. ALLERGIES: No known drug allergies. MEDICATIONS: Getting Kayexalate, Levaquin, heparin, insulin, and sodium chloride. SOCIAL HISTORY: retirement resident. No other history is obtainable. He is single. PHYSICAL EXAMINATION: VITAL SIGNS: Temperature 98.9 degrees. No fever since admission. Pulse 85 and blood pressure 150/73. GENERAL APPEARANCE: No acute distress. Seems to be thin. HEAD AND NECK: [place] conjunctiva. HEART: Normal rate. LUNGS: Clear. ABDOMEN: Soft, nontender. G-tube in place. EXTREMITIES: He has no edema. He has muscle atrophy in legs. NEUROLOGIC: He is awake, responsive . He has contracture in right hand. LABORATORY AND DIAGNOSTIC DATA: Sodium 147, potassium 5.2, chloride 111, bicarbonate 28, BUN 54, creatinine 1.8, glucose 126. WBC 13.1, hemoglobin 8.9, hematocrit 26.5, and platelets 404,000. UA showed WBC too numerous to count, rbc's 10 to 15. Urine culture growing Proteus ESBL and Klebsiella. Both are sensitive to Levaquin and ertapenem. IMPRESSION: Urinary tract injection with Proteus and Klebsiella. The patient seems to have chronic kidney disease. He has anemia, diabetes mellitus, hypertension, is status post cerebrovascular accident and is on gastrostomy tube feeding. RECOMMENDATION: We will continue Levaquin. At the end of my exam, I thank Dr. López for involving me in the care of this patient. Gerald Conway M.D. DR: Shreya JOB#: [id number] CC: SARAVANAN
--- NOTE | 2019-01-31 19:47 | NUR ---
HAND-OFF: Report given to Wilman PATEL.
--- NOTE | 2019-01-31 19:55 | NUR ---
NURSE NOTES: Received patient in bed, asleep, no s/s of acute distress. No signs of any pain or discomfort at this time. IV intact, no s/s of infiltration, running IVF. Bed is in lowest position and locked. G tube feeding noted running 50cc/hr. Call light and belongings within reach, bed alarm on. Will monitor blood glucose closely.
[2019-01-31 20:00] VITALS: BP 137/62
[2019-01-31] MEDS: Levofloxacin 250mg/D5W 50ml IVPB SCH (20:06)
[2019-02-01] VITALS: BP 124/75
[2019-02-01 04:00] VITALS: BP 151/70
[2019-02-01] MEDS: NovoLOG Insulin Flexpen SUBQ SCH ×4 (05:55→21:35)
--- NOTE | 2019-02-01 07:07 | NUR ---
HAND-OFF: Report given to JORGE Christian.
--- NOTE | 2019-02-01 07:44 | NUR ---
NURSE NOTES: Patient is awake and alert,respirations are unlabored.G-tube feeding remains as ordered,no residual noted,abdomen is soft. HOB is elevatedPatient has condom catheter with clear yellow urine noted.IV fluids infusing as ordered.Call light within reach.
[2019-02-01 08:00] VITALS: BP 129/67
[2019-02-01 08:22] LABS: ANION GAP 5 mmol/L (5-15); BLOOD UREA NITROGEN 48 mg/dL (7-18); CALCIUM 8.9 MG/DL (8.5-10.1); CARBON DIOXIDE 31 MMOL/L (21-32); CHLORIDE 114 MMOL/L (98-107); CREATININE 1.7 MG/DL (0.55-1.30); POTASSIUM 4.1 MMOL/L (3.5-5.1); SODIUM 150 MMOL/L (136-145)
[2019-02-01] MEDS: Sodium Polystyrene Sulfonate 15gm Powder GT SCH (09:00)
[2019-02-01] MEDS: Heparin 5000 units/ml inj SUBQ SCH ×2 (09:55→21:23)
--- NOTE | 2019-02-01 10:46 | Infectious Diseases Prog Note ---
"Assessment/Plan Assessment/Plan antibiotics : levoquin A 1. proteus | klebsiella UTI 2. diabetes mellitus 3. hypertension 4. CVA 5. leucocytosis 6. chronic kidney disease P 1. continue levoquin po 2 more days 2. will follow up cultures Subjective ROS Limited/Unobtainable: Yes Allergies: Coded Allergies: No Known Allergies (Verified , 12/28/06) Objective Vital Signs Last 24 Hour Vital Signs Date Time Temp Pulse Resp B/P (MAP) Pulse Ox O2 Delivery O2 Flow Rate FiO2 02/01/19 09:58 Room Air 02/01/19 08:00 98.1 87 18 129/67 (87) 100 02/01/19 04:00 97.5 90 18 151/70 (97) 100 02/01/19 00:00 98.2 94 18 124/75 (91) 98 01/31/19 22:00 Room Air 01/31/19 20:00 97.5 89 18 137/62 (87) 98 01/31/19 16:00 98.0 76 18 131/81 (98) 98 01/31/19 12:00 97.7 80 18 139/79 (99) 99 Height (Feet): 5 Height (Inches): 5.00 Weight (Pounds): 135 Respiratory/Chest: lungs clear Cardiovascular: normal rate, regular rhythm, no gallop/murmur Abdomen: soft, non tender, other - GT Extremities: no edema Laboratory Tests Test 02/01/19 07:25 Sodium Level 150 MMOL/L (136-145) H Potassium Level 4.1 MMOL/L (3.5-5.1) Chloride Level 114 MMOL/L (98-107) H Carbon Dioxide Level 31 MMOL/L (21-32) Anion Gap 5 mmol/L (5-15) Blood Urea Nitrogen 48 mg/dL (7-18) H Creatinine 1.7 MG/DL (0.55-1.30) H Estimat Glomerular Filtration Rate mL/min (>60) Glucose Level 146 MG/DL (74-106) H Calcium Level 8.9 MG/DL (8.5-10.1) Current Medications Medications (Trade) Dose Ordered Sig/Jarrod Route PRN Reason Start Time Stop Time Status Last Admin Dose Admin Dextrose (Dextrose 50%) 25 ml Q30M PRN IV Hypoglycemia 01/27/19 19:00 02/26/19 18:59 Dextrose (Dextrose 50%) 50 ml Q30M PRN IV Hypoglycemia 01/27/19 19:00 02/26/19 18:59 Heparin Sodium (Porcine) (Heparin 5000 units/ml) 5,000 units EVERY 12 HOURS SUBQ 01/27/19 21:00 02/26/19 20:59 02/01/19 09:55 Insulin Aspart (NovoLOG) BEFORE MEALS AND HS SUBQ 01/27/19 21:00 02/26/19 20:59 02/01/19 05:55 Levofloxacin 50 ml @ 50 mls/hr Q24H IVPB 01/28/19 21:00 02/04/19 20:59 01/31/19 20:06 Sodium Polystyrene Sulfonate (Kayexalate) 60 gm DAILY GT 01/29/19 12:00 02/28/19 11:59 01/31/19 10:44 Sodium Chloride 1,000 ml @ 75 mls/hr [id number] IV 01/27/19 19:00 02/26/19 18:59 01/31/19 18:14 Len Sarkar MD February 01, 2019 10:46"
[2019-02-01 12:00] VITALS: BP 131/68
--- NOTE | 2019-02-01 14:29 | NUR ---
RD ASSESSMENT & RECOMMENDATIONS SEE CARE ACTIVITY FOR COMPLETE ASSESSMENT DAILY ESTIMATED NEEDS: Needs based on Underweight, wounds/ 49.5kg 30-35 kcals/kg 9814-2543 total kcals 1.25-1.5 g protein/kg 62-74 g total protein 25-30 mL/kg 8349-6762 total fluid mLs NUTRITION DIAGNOSIS: * Increased kcal and pro needs r/t underweight status and wound healing as evidenced by pt @74% [place] Body Weight, BMI underweight per guidelines, w/ partial thickness wounds. * Swallowing difficulty R/T dysphagia as evidenced by pt is PEG dep CURRENT TF:Glucerna 1.5 @ 50ml/hr x 20 ENTERAL NUTRITION RECOMMENDATIONS: Nepro @ 35ml/hr x 24 hrs to provide 840ml, 1512kcal, 68g prot, 610ml free water * Rec TF change to Nepro for less K content : will provide 890mg K per 24 hrs, 1630mg less than current TF order * HOB over 30 degrees/ water flush per MD * DC kayexalate w/ TF change to Nepro ADDITIONAL RECOMMENDATIONS: * Per SNF, HT: 5'7", WT: 109#. * Obtain CALIBRATED bedscale * Monitor lytes: rec TF change to Nepro for less K content * senior accounting specialist eval for sacral wound -> Add Jermaine 1pkt BID (F/up w/ eval) * DC NS IVF- Na now elevated .
[2019-02-01 16:00] VITALS: BP 136/77
[2019-02-01] MEDS ORDERED: Lidocaine 1% Plain 30 ml INJ PRN (16:30)
[2019-02-01] MEDS ORDERED: Heparin1,000 units/500ml Premix(Conc:2 units/ml) IV PRN (16:30)
--- NOTE | 2019-02-01 17:08 | NUR ---
NURSE NOTES: DR López here and and aware of patient potassium level today of 4.1.DR Quiroz wants patient to continue on Sodium Polystrene daily,.New order to change dose to 30gram via G-tube daily.
--- NOTE | 2019-02-01 17:17 | General Progress Note ---
Assessment/Plan Assessment/Plan: Now hypernatremia+ Hyperkalemia se Rx UTI ---Rx ID called for ESBL UTI. Rx per ID Subjective Allergies: Coded Allergies: No Known Allergies (Verified , 12/28/06) Subjective Confused Objective Last 24 Hour Vital Signs Date Time Temp Pulse Resp B/P (MAP) Pulse Ox O2 Delivery O2 Flow Rate FiO2 02/01/19 16:00 97.9 79 136/77 (96) 98 02/01/19 12:00 82 18 131/68 (89) 98 02/01/19 09:58 Room Air 02/01/19 08:00 98.1 87 18 129/67 (87) 100 02/01/19 04:00 97.5 90 18 151/70 (97) 100 02/01/19 00:00 98.2 94 18 124/75 (91) 98 01/31/19 22:00 Room Air 01/31/19 20:00 97.5 89 18 137/62 (87) 98 Intake and Output 01/31/19 02/01/19 19:00 07:00 Intake Total 1300 ml 675 ml Balance 1300 ml 675 ml Intake Free Water 125 ml 300 ml IV Total 675 ml 375 ml Tube Feeding 400 ml Blood Product 100 ml # Bowel Movements 2 Laboratory Tests 02/01/19 07:25: Sodium Level 150H, Potassium Level 4.1, Chloride Level 114H, Carbon Dioxide Level 31, Anion Gap 5, Blood Urea Nitrogen 48H, Creatinine 1.7H, Estimat Glomerular Filtration Rate , Glucose Level 146H, Calcium Level 8.9 Height (Feet): 5 Height (Inches): 5.00 Weight (Pounds): 135 Objective CV RR Lungs CTA Abd SNT BS + E No CCe Ann López MD February 01, 2019 17:17
[2019-02-01] MEDS ORDERED: Sodium Polystyrene Sulfonate 15gm Powder GT SCH (18:00)
--- NOTE | 2019-02-01 19:00 | NUR ---
NURSE NOTES Patient will get Picc LIne placement,due to unable to get IV line.Patient continues to tolerate G-tube .HOB is elevated.
--- NOTE | 2019-02-01 19:50 | NUR ---
HAND-OFF: Report given to Linn PATEL.
[2019-02-01 20:00] VITALS: BP 162/74
[2019-02-01] MEDS: Dyna-Hex 2% Top Sol 2oz TOPIC SCH (20:00)
--- NOTE | 2019-02-01 20:08 | NUR ---
NURSE NOTES: Received patient in bed, bed bound, alert/oriented x2/3, on G tube feeding, tolerating well. Bed is in low position, locked and alarm is on. Will continue to monitor for comfort and safety.
[2019-02-01] MEDS: Levofloxacin 250mg/D5W 50ml IVPB SCH ×2 (21:00→21:22)
[2019-02-02 00:21] VITALS: BP 131/76
--- NOTE | 2019-02-02 01:48 | NUR ---
NURSE NOTES: MD is aware of a pending consent to be signed for a PICC line insertion procedure. Consent will be signed by MD in am (patient is unable to sign, and there are no next of kin).
[2019-02-02 04:24] VITALS: BP 150/75
[2019-02-02] MEDS: NovoLOG Insulin Flexpen SUBQ SCH ×4 (06:18→21:16)
[2019-02-02 06:56] LABS: ANION GAP 5 mmol/L (5-15); BLOOD UREA NITROGEN 53 mg/dL (7-18); CALCIUM 9.1 MG/DL (8.5-10.1); CARBON DIOXIDE 33 MMOL/L (21-32); CHLORIDE 113 MMOL/L (98-107); CREATININE 1.7 MG/DL (0.55-1.30); SODIUM 151 MMOL/L (136-145)
--- NOTE | 2019-02-02 07:15 | NUR ---
NURSE NOTES: RN received pt in stable condition, sleeping in bed. Bed in low, locked position, call light within reach. Will continue plan of care.
[2019-02-02 08:00] VITALS: BP 159/72
[2019-02-02] MEDS: Sodium Polystyrene Sulfonate 15gm Powder GT SCH (09:55)
[2019-02-02] MEDS: Heparin 5000 units/ml inj SUBQ SCH ×2 (09:56→21:10)
--- NOTE | 2019-02-02 10:05 | Infectious Diseases Prog Note ---
"Assessment/Plan Assessment/Plan antibiotics : levoquin A 1. proteus | klebsiella UTI 2. diabetes mellitus 3. hypertension 4. CVA 5. leucocytosis 6. chronic kidney disease P 1. continue levoquin po 1 more day 2. will follow up cultures Subjective ROS Limited/Unobtainable: Yes Allergies: Coded Allergies: No Known Allergies (Verified , 12/28/06) Objective Vital Signs Last 24 Hour Vital Signs Date Time Temp Pulse Resp B/P (MAP) Pulse Ox O2 Delivery O2 Flow Rate FiO2 02/02/19 08:00 97.7 92 20 159/72 (101) 99 02/02/19 04:24 98.6 89 18 150/75 (100) 02/02/19 00:21 98.2 78 18 131/76 (94) 02/01/19 21:58 Room Air 02/01/19 20:00 97.6 84 18 162/74 (103) 02/01/19 16:00 97.9 79 136/77 (96) 98 02/01/19 12:00 82 18 131/68 (89) 98 Height (Feet): 5 Height (Inches): 5.00 Weight (Pounds): 135 Respiratory/Chest: lungs clear Cardiovascular: normal rate, regular rhythm, no gallop/murmur Abdomen: soft, non tender, other - GT Extremities: no edema Laboratory Tests Test 02/02/19 06:15 Sodium Level 151 MMOL/L (136-145) H Potassium Level 4.0 MMOL/L (3.5-5.1) Chloride Level 113 MMOL/L (98-107) H Carbon Dioxide Level 33 MMOL/L (21-32) H Anion Gap 5 mmol/L (5-15) Blood Urea Nitrogen 53 mg/dL (7-18) H Creatinine 1.7 MG/DL (0.55-1.30) H Estimat Glomerular Filtration Rate mL/min (>60) Glucose Level 183 MG/DL (74-106) H Calcium Level 9.1 MG/DL (8.5-10.1) Magnesium Level 1.4 MG/DL (1.8-2.4) L Current Medications Medications (Trade) Dose Ordered Sig/Jarrod Route PRN Reason Start Time Stop Time Status Last Admin Dose Admin Chlorhexidine Gluconate (Karen-Hex 2%) 1 applic DAILY@1999 TOPIC 02/01/19 20:00 03/03/19 19:59 Dextrose (Dextrose 50%) 25 ml Q30M PRN IV Hypoglycemia 01/27/19 19:00 02/26/19 18:59 Dextrose (Dextrose 50%) 50 ml Q30M PRN IV Hypoglycemia 01/27/19 19:00 02/26/19 18:59 Heparin Sodium (Porcine) (Heparin 5000 units/ml) 5,000 units EVERY 12 HOURS SUBQ 01/27/19 21:00 02/26/19 20:59 02/02/19 09:56 Heparin Sodium/ Sodium Chloride (Heparin 1000 units/500ml Premix) 1,000 unit ONCE PRN IV PICC LINE PLACEMENT 02/01/19 16:30 02/02/19 18:00 Insulin Aspart (NovoLOG) BEFORE MEALS AND HS SUBQ 01/27/19 21:00 02/26/19 20:59 02/02/19 06:18 Levofloxacin 50 ml @ 50 mls/hr Q24H IVPB 01/28/19 21:00 02/04/19 20:59 01/31/19 20:06 Lidocaine HCl (Xylocaine 1% 30ml) 30 ml ONCE PRN INJ PICC LINE 02/01/19 16:30 02/02/19 18:00 Sodium Polystyrene Sulfonate (Kayexalate) 30 gm DAILY GT 02/02/19 09:00 03/04/19 08:59 02/02/19 09:55 Sodium Chloride 1,000 ml @ 75 mls/hr [id number] IV 02/01/19 17:30 03/03/19 17:29 Len Sarkar MD February 02, 2019 10:05"
[2019-02-02 12:00] VITALS: BP 166/80
[2019-02-02 16:00] VITALS: BP 163/83
--- NOTE | 2019-02-02 17:18 | General Progress Note ---
Assessment/Plan Assessment/Plan: Now hypernatremia 151+ Hyperkalemia se Rx UTI ---Rx ID called for ESBL UTI. Rx per ID Subjective Allergies: Coded Allergies: No Known Allergies (Verified , 12/28/06) Subjective Confused Objective Last 24 Hour Vital Signs Date Time Temp Pulse Resp B/P (MAP) Pulse Ox O2 Delivery O2 Flow Rate FiO2 02/02/19 16:00 98.3 87 22 163/83 (109) 99 02/02/19 12:00 98.2 94 22 166/80 (108) 98 02/02/19 09:00 Room Air 02/02/19 08:00 97.7 92 20 159/72 (101) 99 02/02/19 04:24 98.6 89 18 150/75 (100) 02/02/19 00:21 98.2 78 18 131/76 (94) 02/01/19 21:58 Room Air 02/01/19 20:00 97.6 84 18 162/74 (103) Intake and Output 02/01/19 02/02/19 19:00 07:00 Intake Total 450 ml 525 ml Output Total 800 ml 450 ml Balance -350 ml 75 ml Intake Free Water 225 ml IV Total 450 ml Tube Feeding 300 ml Output Urine Total 800 ml 450 ml # Bowel Movements 1 Laboratory Tests 02/02/19 06:15: Sodium Level 151H, Potassium Level 4.0, Chloride Level 113H, Carbon Dioxide Level 33H, Anion Gap 5, Blood Urea Nitrogen 53H, Creatinine 1.7H, Estimat Glomerular Filtration Rate , Glucose Level 183H, Calcium Level 9.1, Magnesium Level 1.4L Height (Feet): 5 Height (Inches): 5.00 Weight (Pounds): 135 Objective CV RR Lungs CTA Abd SNT BS + E No CCe Ann López MD February 02, 2019 17:18
--- NOTE | 2019-02-02 18:19 | NUR ---
NURSE NOTES: RN unable to obtain IV access. Dr. Disla ordered PICC line, but no family to consent. Dr. Disla to sign consent in chart. RN paged Dr. Disla regarding issue. Waiting for call back.
--- NOTE | 2019-02-02 18:47 | NUR ---
NURSE NOTES: RN asked Miranda to advise on telephone consent for PICC. RN then called pt's SNF to verify if pt has family or conserver. It was reported that pt made medical decisions for himself with no family or conservator. RN attempted to inform pt of PICC line procedure. Pt unable to comprehend or consent. RN will endorse to night time babysitter to follow up in the AM.
--- NOTE | 2019-02-02 18:59 | NUR ---
HAND-OFF: Report given to JORGE Lara.
--- NOTE | 2019-02-02 19:52 | NUR ---
NURSE NOTES: Received patient in bed, no acute distress noted, VSS, afebrile, PICC line placement is pending , will follow up with MD. Patient is in no acute distress at this time, call light is within reach, bed is in low position, locked and alarm is on . Will continue to monitor for safety and comfort.
[2019-02-02 20:00] VITALS: BP 155/75
[2019-02-02] MEDS: Dyna-Hex 2% Top Sol 2oz TOPIC SCH (21:10)
[2019-02-03] VITALS: BP 145/81
[2019-02-03 04:00] VITALS: BP 150/81
[2019-02-03] MEDS: NovoLOG Insulin Flexpen SUBQ SCH ×3 (06:14→16:37)
--- NOTE | 2019-02-03 06:46 | NUR ---
HAND-OFF: Report given to Al PATEL.
[2019-02-03 07:11] LABS: ANION GAP 7 mmol/L (5-15); BLOOD UREA NITROGEN 62 mg/dL (7-18); CALCIUM 9.4 MG/DL (8.5-10.1); CARBON DIOXIDE 36 MMOL/L (21-32); CHLORIDE 117 MMOL/L (98-107); CREATININE 1.9 MG/DL (0.55-1.30); POTASSIUM 3.5 MMOL/L (3.5-5.1); SODIUM 159 MMOL/L (136-145)
[2019-02-03 08:00] VITALS: BP 163/80
[2019-02-03] MEDS: Heparin 5000 units/ml inj SUBQ SCH ×2 (08:09→20:28)
--- NOTE | 2019-02-03 09:14 | General Progress Note ---
Assessment/Plan Assessment/Plan: Now hypernatremia 151+ Hyperkalemia see orders UTI ---Rx ID called for ESBL UTI. Rx per ID. Pt has no family or DPOA. 2 MDs to sign for PICC line Subjective Allergies: Coded Allergies: No Known Allergies (Verified , 12/28/06) Subjective Confused. Vomited coffee ground. Objective Last 24 Hour Vital Signs Date Time Temp Pulse Resp B/P (MAP) Pulse Ox O2 Delivery O2 Flow Rate FiO2 02/03/19 08:00 98.3 93 20 163/80 (107) 96 02/03/19 04:00 98.4 96 17 150/81 (104) 02/03/19 00:00 98.0 89 19 145/81 (102) 02/02/19 20:00 98.3 93 17 155/75 (101) 02/02/19 19:01 Room Air 02/02/19 16:00 98.3 87 22 163/83 (109) 99 02/02/19 12:00 98.2 94 22 166/80 (108) 98 Intake and Output 02/02/19 02/03/19 18:59 06:59 Intake Total 275 ml 425 ml Output Total 800 ml 800 ml Balance -525 ml -375 ml Intake Free Water 225 ml 225 ml Tube Feeding 50 ml 200 ml Output Urine Total 800 ml 800 ml # Voids 1 # Bowel Movements 1 1 Laboratory Tests 02/03/19 05:40: Sodium Level 159H, Potassium Level 3.5, Chloride Level 117H, Carbon Dioxide Level 36H, Anion Gap 7, Blood Urea Nitrogen 62H, Creatinine 1.9H, Estimat Glomerular Filtration Rate , Glucose Level 166H, Calcium Level 9.4, Magnesium Level 1.6 Height (Feet): 5 Height (Inches): 5.00 Weight (Pounds): 135 Objective CV RR Lungs CTA Abd SNT BS + E No CCe Ann López MD February 03, 2019 09:14
--- NOTE | 2019-02-03 10:23 | NUR ---
NURSE NOTES: PT AXOX1, ALERT TO NAME ONLY. PT DOES NOT KNOW TIME, DATE, OR LOCATION. PT CONTINUOUSLY ASKS FOR WATER. RN EDUCATED PT HE IS TO NOT HAVE WATER BY MOUTH DUE TO DIFFICULTY SWALLOWING. PT IS BEING HYDRATED WITH IV FLUIDS. PT UNABLE TO COMPREHEND AND CONTINUES TO ASK FOR WATER. RN PROVIDED ORAL CARE. NEW ORDERS FROM DR BARKLEY TO HOLD TUBE FEEDING UNTIL FURTHER NOTICE AND INCREASE D5W TO 125CC/H. PT IN HIGH MARTINI'S POSITION WITH HOB ELEVATED. BED IN LOWEST POSITION WITH BEDSIDE RAILS X2 RAISED. BED ALARM ON. CALL LIGHT WITHIN REACH.
--- NOTE | 2019-02-03 10:54 | Infectious Diseases Prog Note ---
"Assessment/Plan Assessment/Plan 1. proteus | klebsiella UTI 2. diabetes mellitus 3. hypertension 4. CVA 5. leucocytosis 6. chronic kidney disease 7. Vomiting, ? aspiration P 1. continue Levaquin 2. will follow up CXR & CBC Subjective ROS Limited/Unobtainable: Yes Respiratory: Reports: other - suspected aspiration Gastrointestinal/Abdominal: Reports: nausea, vomiting Allergies: Coded Allergies: No Known Allergies (Verified , 12/28/06) Objective Vital Signs Last 24 Hour Vital Signs Date Time Temp Pulse Resp B/P (MAP) Pulse Ox O2 Delivery O2 Flow Rate FiO2 02/03/19 09:33 93 163/80 02/03/19 09:00 Room Air 02/03/19 08:00 98.3 93 20 163/80 (107) 96 02/03/19 04:00 98.4 96 17 150/81 (104) 02/03/19 00:00 98.0 89 19 145/81 (102) 02/02/19 20:00 98.3 93 17 155/75 (101) 02/02/19 19:01 Room Air 02/02/19 16:00 98.3 87 22 163/83 (109) 99 02/02/19 12:00 98.2 94 22 166/80 (108) 98 Height (Feet): 5 Height (Inches): 5.00 Weight (Pounds): 135 General Appearance: no acute distress HEENT: mucous membranes moist Respiratory/Chest: lungs clear Cardiovascular: normal rate Abdomen: soft, non tender, other - GT feeding on hold Extremities: no edema Neurologic/Psychiatric: alert, responsive Laboratory Tests Test 02/03/19 05:40 Sodium Level 159 MMOL/L (136-145) H Potassium Level 3.5 MMOL/L (3.5-5.1) Chloride Level 117 MMOL/L (98-107) H Carbon Dioxide Level 36 MMOL/L (21-32) H Anion Gap 7 mmol/L (5-15) Blood Urea Nitrogen 62 mg/dL (7-18) H Creatinine 1.9 MG/DL (0.55-1.30) H Estimat Glomerular Filtration Rate mL/min (>60) Glucose Level 166 MG/DL (74-106) H Calcium Level 9.4 MG/DL (8.5-10.1) Magnesium Level 1.6 MG/DL (1.5-2.4) Current Medications Medications (Trade) Dose Ordered Sig/Jarrod Route PRN Reason Start Time Stop Time Status Last Admin Dose Admin Amlodipine Besylate (Norvasc) 10 mg DAILY ORAL 02/03/19 09:15 03/05/19 09:14 02/03/19 09:33 Chlorhexidine Gluconate (Karen-Hex 2%) 1 applic DAILY@2000 TOPIC 02/01/19 20:00 03/03/19 19:59 02/02/19 21:10 Dextrose 1,000 ml @ 125 mls/hr Q8H IV 02/03/19 09:30 03/05/19 09:29 02/03/19 09:34 Dextrose (Dextrose 50%) 25 ml Q30M PRN IV Hypoglycemia 01/27/19 19:00 02/26/19 18:59 Dextrose (Dextrose 50%) 50 ml Q30M PRN IV Hypoglycemia 01/27/19 19:00 02/26/19 18:59 Heparin Sodium (Porcine) (Heparin 5000 units/ml) 5,000 units EVERY 12 HOURS SUBQ 01/27/19 21:00 02/26/19 20:59 02/03/19 08:09 Insulin Aspart (NovoLOG) BEFORE MEALS AND HS SUBQ 01/27/19 21:00 02/26/19 20:59 02/03/19 06:14 Levofloxacin (Levaquin) 250 mg DAILY ORAL 02/02/19 13:00 02/03/19 12:59 02/03/19 08:07 Ondansetron HCl (Zofran) 4 mg Q6H PRN IVP Nausea & Vomiting 02/03/19 09:15 03/05/19 09:14 02/03/19 09:33 Sodium Polystyrene Sulfonate (Kayexalate) 30 gm DAILY GT 02/04/19 09:00 03/04/19 08:59 Gerald Conway MD February 03, 2019 10:54"
--- NOTE | 2019-02-03 10:57 | NUR ---
NURSE NOTES: DR Sapna SIMONS AT BEDSIDE AND MADE AWARE OF SUSPECTED ASPIRATION PER DR BARKLEY. MD ALSO MADE AWARE OF NEED FOR PICC LINE AND NEEDS 2 MD CONSENT FOR PICC PLACEMENT.
[2019-02-03] MEDS: Sodium Polystyrene Sulfonate 15gm Powder GT SCH (11:06)
[2019-02-03 12:00] VITALS: BP 147/69
--- NOTE | 2019-02-03 13:12 | NUR ---
RADIOLOGY DEPT., CHEST X-RAY DONE.-P.DYE
--- NOTE | 2019-02-03 14:45 | NUR ---
NURSE NOTES: WOUND CARE NOTES:Pt Skin assessment completed. Hyperpigmentation from previous pressure injury noted to sacrum with areas of dry brown skin pigmentation without erythema or induration.Non-tender when palpated.Erythema with excoriation noted to perianal area. Brown skin pigmentations noted to R and L ischial areas..Erythema noted to urinary meatus.Pt complained of burning .Moisture Barrier applied. Both heels are soft but blanchable. Pt denied pain or tenderness when each heel minimally palpated. No other areas of skin concerns noted. Educated pt on wound prevention.Encouraged to frequently shift and off-lift buttocks while repositioning. Encouraged to keep heels off-loaded with pillow. Tx.Plan:Apply Moisture Barrier to Vielka-Anal area. Scrotum and both ischail areas with each Incontinence care. Apply Moisture Barrier to Sacrum. Cover with Optifoam drsg. Change every 3 days and prn. Apply Cavilon Skin Barrier to both heels. Cover each heel with Optifoam drsg. Change every 7 days and prn. Encourage and assist as needed with repositioning at least every 2 hours or as tolerated. Off-load heels with pillow.
[2019-02-03 15:50] VITALS: BP 146/61
--- NOTE | 2019-02-03 16:11 | Diagnostic Imaging Report ---
Indication: Reason For Exam: COUGH Technique: XRAY Chest 1v Comparison: 01/27/2019 Findings: There is interstitial markings are again noted most pronounced at the left base. This is unchanged. Infrahilar opacities on the right are decreased likely related to improved atelectasis. There is no new focal airspace consolidation. No pleural effusion. No pneumothorax. Osseous structures are stable. Heart size and mediastinal contours stable. Atelectatic calcifications again noted. Impression: Increased reticular markings, pronounced at the left base. Findings again thought to be related to chronic fibrotic changes. No new focal airspace consolidation. No pleural effusion or pneumothorax.
--- NOTE | 2019-02-03 16:50 | NUR ---
NURSE NOTES: PT'S SACRAL AND BILATERAL HEEL DRESSINGS CHANGED. RN PAGED DR WHITE TO OBTAIN WOUND CARE PROTOCOL ORDERS.
--- NOTE | 2019-02-03 18:03 | NUR ---
NURSE NOTES: RECEIVED ORDER FROM DR BARKLEY FOR WOUND CARE CONSULT. RN ORDERED LOW AIR LOSS MATTRESS FROM [employer]. ALSO RECEIVED ORDER TO CHANGE ACCUCHECK TO Q6H PER GTUBE PROTOCOL.
--- NOTE | 2019-02-03 19:09 | NUR ---
HAND-OFF: Report given to Sapna ALBRECHT RN.
--- NOTE | 2019-02-03 19:22 | NUR ---
NURSE NOTES: Received patient in bed, asleep, no acute distress noted, VSS, afebrile, Gtube feeding is on hold, till further notice per MD. Bed is in low position, locked, alarm is on, call light is within reach. Will continue to monitor for safety and comfort.
--- NOTE | 2019-02-03 19:53 | Consultation ---
History of Present Illness General Date patient seen: February 03, 2019 Chief Complaint: Abnormal Labs Present Illness HPI 83 year old male with multiple medical comorbidities presented with abnormal labs, possible aspiration pneumonia, renal insufficiency who is currently under medical care and management. Patient unable to provide history or participate in exam given medical condition. During admission had wound concerns and is high risk for developing wounds. surgery called to evaluate and assist with care and management. patient seen, chart reviewed, patient examined. Allergies: Coded Allergies: No Known Allergies (Verified , 12/28/06) Medication History Scheduled Epoetin Juwan (Procrit), 10,000 UNIT SUBQ 3XW, (Reported) Fenofibrate,Micronized (Fenofibrate), 134 MG GT DAILY, (Reported) Ferrous Sulfate (Ferrous Sulfate), 7.5 ML GT BID, (Reported) Lansoprazole* (Lansoprazole*), 30 MG ORAL BID, (Reported) Sucralfate* (Carafate*), 1 GM GT Q6HR, (Reported) Scheduled PRN Acetaminophen* (Acetaminophen 325MG Tablet*), 650 MG GT Q6HR PRN for Mild Pain/ Temp > 100.5, (Reported) Miscellaneous Medications Insulin Aspart (Novolog Flexpen), SUBQ, (Reported) Discontinued Medications Docusate Sodium* (Docusate Sodium*), 100 MG PO TWICE A DAY, (Reported) Discontinued Reason: Therapy completed Epoetin Juwan-Epbx (Retacrit), 6,000 UNIT SUBQ MON-WED-FRI Discontinued Reason: Therapy completed Heparin Sod (Porcine) (Heparin Sodium*), 5,000 UNITS SUBQ EVERY 12 HOURS Discontinued Reason: Therapy completed Heparin Sod (Porcine) (Heparin Sodium*), 5,000 UNITS SUBQ EVERY 12 HOURS Discontinued Reason: Therapy completed Magnesium Hydroxide* (Milk Of Magnesia*), 30 ML GT DAILY PRN for Constipation, ( Reported) Discontinued Reason: Therapy completed Metronidazole* (Flagyl*), 500 MG GT Q8HR Discontinued Reason: Therapy completed Nut.tx.gluc.intoler,Lac-Fr,Soy (Glucerna 1.5 Jose), GT, (Reported) Discontinued Reason: Therapy completed Sennosides (Dania-Eugenia), 2 TAB GT DAILY PRN for Constipation, (Reported) Discontinued Reason: Therapy completed Sodium Polystyrene Sulfonate (Sodium Polystyrene Sulfonate), 30 GM GT DAILY, ( Reported) Discontinued Reason: Therapy completed Patient History Limited by: medical condition History Provided By: Medical Record, PMD Healthcare decision maker Resuscitation status Full Code Advanced Directive on File Past Medical/Surgical History Past Medical/Surgical History: (1) Infection (2) aspiration p (3) Sepsis due to pneumonia (4) Occult blood in stools (5) Duodenal ulcer (6) Duodenitis (7) Coffee ground emesis (8) G tube feedings (9) DM (10) Dehydration (11) UTI (urinary tract infection) (12) Hyperkalemia (13) Renal insufficiency Review of Systems ROS Narrative cannot obtain given medical condition Physical Exam General Appearance: no apparent distress Lines, tubes and drains: PICC HEENT: mucous membranes moist Neck: normal inspection Respiratory/Chest: no respiratory distress, no accessory muscle use, decreased breath sounds Cardiovascular/Chest: regular rhythm Abdomen: soft, no organomegaly, no mass Extremities: other Skin Exam: warm/dry Neurologic: alert, unresponsiveness Last 24 Hour Vital Signs Date Time Temp Pulse Resp B/P (MAP) Pulse Ox O2 Delivery O2 Flow Rate FiO2 02/03/19 15:50 98.4 96 20 146/61 (89) 96 02/03/19 12:00 98.1 103 20 147/69 (95) 99 02/03/19 09:33 93 163/80 02/03/19 09:00 Room Air 02/03/19 08:00 98.3 93 20 163/80 (107) 96 02/03/19 04:00 98.4 96 17 150/81 (104) 02/03/19 00:00 98.0 89 19 145/81 (102) 02/02/19 20:00 98.3 93 17 155/75 (101) Intake and Output 02/02/19 02/03/19 19:00 07:00 Intake Total 275 ml 475 ml Output Total 800 ml 800 ml Balance -525 ml -325 ml Intake Free Water 225 ml 225 ml Tube Feeding 50 ml 250 ml Output Urine Total 800 ml 800 ml # Voids 1 # Bowel Movements 1 1 Laboratory Tests Test 02/03/19 05:40 Sodium Level 159 MMOL/L (136-145) H Potassium Level 3.5 MMOL/L (3.5-5.1) Chloride Level 117 MMOL/L (98-107) H Carbon Dioxide Level 36 MMOL/L (21-32) H Anion Gap 7 mmol/L (5-15) Blood Urea Nitrogen 62 mg/dL (7-18) H Creatinine 1.9 MG/DL (0.55-1.30) H Estimat Glomerular Filtration Rate mL/min (>60) Glucose Level 166 MG/DL (74-106) H Calcium Level 9.4 MG/DL (8.5-10.1) Magnesium Level 1.6 MG/DL (1.5-2.4) Height (Feet): 5 Height (Inches): 5.00 Weight (Pounds): 135 Medications Current Medications Medications (Trade) Dose Ordered Sig/Jarrod Route PRN Reason Start Time Stop Time Status Last Admin Dose Admin Amlodipine Besylate (Norvasc) 10 mg DAILY ORAL 02/03/19 09:15 03/05/19 09:14 02/03/19 09:33 Chlorhexidine Gluconate (Karen-Hex 2%) 1 applic DAILY@2000 TOPIC 02/01/19 20:00 03/03/19 19:59 02/02/19 21:10 Dextrose 1,000 ml @ 125 mls/hr Q8H IV 02/03/19 09:30 03/05/19 09:29 02/03/19 16:36 Dextrose (Dextrose 50%) 25 ml Q30M PRN IV Hypoglycemia 01/27/19 19:00 02/26/19 18:59 Dextrose (Dextrose 50%) 50 ml Q30M PRN IV Hypoglycemia 01/27/19 19:00 02/26/19 18:59 Heparin Sodium (Porcine) (Heparin 5000 units/ml) 5,000 units EVERY 12 HOURS SUBQ 01/27/19 21:00 02/26/19 20:59 02/03/19 08:09 Insulin Aspart (NovoLOG) Q6HR SUBQ 02/04/19 00:00 02/26/19 20:59 Ondansetron HCl (Zofran) 4 mg Q6H PRN IVP Nausea & Vomiting 02/03/19 09:15 03/05/19 09:14 02/03/19 09:33 Sodium Polystyrene Sulfonate (Kayexalate) 30 gm DAILY GT 02/04/19 09:00 03/04/19 08:59 Assessment/Plan Problem List: (1) Decubitus skin ulcer Assessment & Plan: Pt Skin assessment completed. Hyperpigmentation from previous pressure injury noted to sacrum with areas of dry brown skin pigmentation without erythema or induration.Non-tender when palpated.Erythema with excoriation noted to perianal area. Brown skin pigmentations noted to R and L ischial areas..Erythema noted to urinary meatus.Pt complained of burning .Moisture Barrier applied. Both heels are soft but blanchable. Pt denied pain or tenderness when each heel minimally palpated. No other areas of skin concerns noted. Educated pt on wound prevention.Encouraged to frequently shift and off-lift buttocks while repositioning. Encouraged to keep heels off-loaded with pillow. Tx.Plan:Apply Moisture Barrier to Vielka-Anal area. Scrotum and both ischail areas with each Incontinence care. Apply Moisture Barrier to Sacrum. Cover with Optifoam drsg. Change every 3 days and prn. Apply Cavilon Skin Barrier to both heels. Cover each heel with Optifoam drsg. Change every 7 days and prn. Encourage and assist as needed with repositioning at least every 2 hours or as tolerated. Off-load heels with pillow. ICD Codes: L89.90 - Pressure ulcer of unspecified site, unspecified stage SNOMED: 643609592 (2) UTI (urinary tract infection) ICD Codes: N39.0 - Urinary tract infection, site not specified SNOMED: 58197370 (3) Hyperkalemia ICD Codes: E87.5 - Hyperkalemia SNOMED: 25431659 (4) Renal insufficiency ICD Codes: N28.9 - Disorder of kidney and ureter, unspecified SNOMED: 535693554, 797602242 (5) Occult blood in stools ICD Codes: R19.5 - Other fecal abnormalities SNOMED: 55743795, 959019676 (6) Duodenal ulcer Assessment & Plan: on PPI next EGD as per GI ICD Codes: K26.9 - Duodenal ulcer, unspecified as acute or chronic, without hemorrhage or perforation SNOMED: 90905908 (7) Dehydration ICD Codes: E86.0 - Dehydration SNOMED: 61148964 (8) Infection ICD Codes: B99.9 - Unspecified infectious disease SNOMED: 42466802 (9) Duodenitis ICD Codes: K29.80 - Duodenitis without bleeding SNOMED: 06687025 (10) Coffee ground emesis ICD Codes: K92.0 - Hematemesis SNOMED: 50115877, 400391825 (11) G tube feedings ICD Codes: Z93.1 - Gastrostomy status SNOMED: 930924355, 426546594 (12) Sepsis due to pneumonia ICD Codes: J18.9 - Pneumonia, unspecified organism; A41.9 - Sepsis, unspecified organism SNOMED: 91280560, 047656766 (13) aspiration p (14) Anthony Licea February 03, 2019 19:53
[2019-02-03 20:00] VITALS: BP 144/66
[2019-02-03] MEDS: Dyna-Hex 2% Top Sol 2oz TOPIC SCH (20:26)
[2019-02-04] VITALS: BP 103/61
[2019-02-04] MEDS: NovoLOG Insulin Flexpen SUBQ SCH ×4 (00:35→17:35)
[2019-02-04 04:00] VITALS: BP 134/63
--- NOTE | 2019-02-04 07:06 | NUR ---
HAND-OFF: Report given to Clemente PATEL.
[2019-02-04 07:20] LABS: HEMATOCRIT 22.8 % (42.0-52.0); HEMOGLOBIN 7.4 G/DL (14.2-18.0); MEAN CORPUSCULAR VOLUME 93 FL (80-99); PLATELET COUNT 202 K/UL (150-450); RED BLOOD COUNT 2.44 M/UL (4.70-6.10); RED CELL DISTRIBUTION WIDTH 12.8 % (11.6-14.8); WHITE BLOOD COUNT 9.3 K/UL (4.8-10.8)
--- NOTE | 2019-02-04 07:30 | NUR ---
NURSE NOTES: Received pt from JORGE BLANCO, pt is confused and orient x2. pt is in RA, No SOB or acute respiratory distress noted. pt has g tube in place is working well. pt has intact iv access [id number] is running well. Pt has condom cath is running well. dR BARKLEY IS PAGED DUE TO K. all needs attended, bed is locked and is in the lowest position, call light within easy reach. will continue to monitor.
[2019-02-04 07:32] LABS: ANION GAP 5 mmol/L (5-15); BLOOD UREA NITROGEN 54 mg/dL (7-18); CALCIUM 8.5 MG/DL (8.5-10.1); CARBON DIOXIDE 34 MMOL/L (21-32); CHLORIDE 106 MMOL/L (98-107); CREATININE 1.7 MG/DL (0.55-1.30); SODIUM 146 MMOL/L (136-145)
[2019-02-04 07:39] LABS: POTASSIUM 2.7 MMOL/L (3.5-5.1)
[2019-02-04 08:00] VITALS: BP 149/89
[2019-02-04] MEDS: Heparin 5000 units/ml inj SUBQ SCH ×2 (08:45→20:17)
[2019-02-04] MEDS ORDERED: Sodium Polystyrene Sulfonate 15gm Powder GT SCH (09:00)
--- NOTE | 2019-02-04 09:47 | NUR ---
CHARGE NURSE NOTES: ENTRY LEVEL MANUFACTURING ENGINEER TAMMY MADE AWARE DR. BARKLEY PAGED X3 FOR K. LEVEL 2.7 TODAY. STILL AWAITING RESPONSE.
--- NOTE | 2019-02-04 10:02 | NUR ---
NURSE NOTES: RN paged Dr jimenez several times for K 2.7 and other lab results , but Dr jimenez hasn't called back yet. quality assurance supervisor Antonieta is aware. will continue to monitor.
[2019-02-04 11:55] VITALS: BP 136/55
--- NOTE | 2019-02-04 13:14 | Infectious Diseases Prog Note ---
"Assessment/Plan Assessment/Plan 1. proteus | klebsiella UTI treated 2. diabetes mellitus 3. hypertension 4. CVA 5. leucocytosis 6. chronic kidney disease 7. Vomiting, CXR: negative for aspiration pneumonia P 1. observe off antibiotic Subjective ROS Limited/Unobtainable: Yes Allergies: Coded Allergies: No Known Allergies (Verified , 12/28/06) Objective Vital Signs Last 24 Hour Vital Signs Date Time Temp Pulse Resp B/P (MAP) Pulse Ox O2 Delivery O2 Flow Rate FiO2 02/04/19 11:55 98.0 76 18 136/55 (82) 98 02/04/19 09:00 Room Air 02/04/19 08:40 81 149/89 02/04/19 08:00 98.2 81 17 149/89 (109) 98 02/04/19 04:00 97.8 76 14 134/63 (86) 02/04/19 00:00 98.2 88 16 103/61 (75) 02/03/19 21:14 Room Air 02/03/19 20:00 98.0 87 20 144/66 (92) 02/03/19 15:50 98.4 96 20 146/61 (89) 96 Height (Feet): 5 Height (Inches): 5.00 Weight (Pounds): 135 General Appearance: no acute distress HEENT: mucous membranes moist Respiratory/Chest: lungs clear Cardiovascular: normal rate Abdomen: soft, non tender, other - GT in place Extremities: no edema Neurologic/Psychiatric: alert, responsive Laboratory Tests Test 02/04/19 05:53 02/04/19 12:32 White Blood Count 9.3 K/UL (4.8-10.8) Red Blood Count 2.44 M/UL (4.70-6.10) L Hemoglobin 7.4 G/DL (14.2-18.0) L Hematocrit 22.8 % (42.0-52.0) L Mean Corpuscular Volume 93 FL (80-99) Mean Corpuscular Hemoglobin 30.2 PG (27.0-31.0) Mean Corpuscular Hemoglobin Concent 32.4 G/DL (32.0-36.0) Red Cell Distribution Width 12.8 % (11.6-14.8) Platelet Count 202 K/UL (150-450) Mean Platelet Volume 5.5 FL (6.5-10.1) L Neutrophils (%) (Auto) % (45.0-75.0) Lymphocytes (%) (Auto) % (20.0-45.0) Monocytes (%) (Auto) % (1.0-10.0) Eosinophils (%) (Auto) % (0.0-3.0) Basophils (%) (Auto) % (0.0-2.0) Differential Total Cells Counted 100 Neutrophils % (Manual) 70 % (45-75) Lymphocytes % (Manual) 19 % (20-45) L Monocytes % (Manual) 7 % (1-10) Eosinophils % (Manual) 4 % (0-3) H Basophils % (Manual) 0 % (0-2) Band Neutrophils 0 % (0-8) Platelet Estimate Adequate Platelet Morphology Normal Hypochromasia 1+ Sodium Level 146 MMOL/L (136-145) H Potassium Level 2.7 MMOL/L (3.5-5.1) *L 2.9 MMOL/L (3.5-5.1) L Chloride Level 106 MMOL/L (98-107) Carbon Dioxide Level 34 MMOL/L (21-32) H Anion Gap 5 mmol/L (5-15) Blood Urea Nitrogen 54 mg/dL (7-18) H Creatinine 1.7 MG/DL (0.55-1.30) H Estimat Glomerular Filtration Rate mL/min (>60) Glucose Level 158 MG/DL (74-106) H Calcium Level 8.5 MG/DL (8.5-10.1) Current Medications Medications (Trade) Dose Ordered Sig/Jarrod Route PRN Reason Start Time Stop Time Status Last Admin Dose Admin Amlodipine Besylate (Norvasc) 10 mg DAILY ORAL 02/03/19 09:15 03/05/19 09:14 02/04/19 08:40 Chlorhexidine Gluconate (Karen-Hex 2%) 1 applic DAILY@2000 TOPIC 02/01/19 20:00 03/03/19 19:59 02/03/19 20:26 Dextrose 1,000 ml @ 125 mls/hr Q8H IV 02/03/19 09:30 03/05/19 09:29 02/04/19 08:39 Dextrose (Dextrose 50%) 25 ml Q30M PRN IV Hypoglycemia 01/27/19 19:00 02/26/19 18:59 Dextrose (Dextrose 50%) 50 ml Q30M PRN IV Hypoglycemia 01/27/19 19:00 02/26/19 18:59 Heparin Sodium (Porcine) (Heparin 5000 units/ml) 5,000 units EVERY 12 HOURS SUBQ 01/27/19 21:00 02/26/19 20:59 02/04/19 08:45 Insulin Aspart (NovoLOG) Q6HR SUBQ 02/04/19 00:00 02/26/19 20:59 02/04/19 11:48 Ondansetron HCl (Zofran) 4 mg Q6H PRN IVP Nausea & Vomiting 02/03/19 09:15 03/05/19 09:14 02/03/19 09:33 Sodium Polystyrene Sulfonate (Kayexalate) 30 gm DAILY GT 02/04/19 09:00 03/04/19 08:59 Gerald Conway MD February 04, 2019 13:14"
--- NOTE | 2019-02-04 14:00 | NUR ---
NURSE NOTES: Dr jimenez visited pt, he is aware about K and HB and other lab results, Dr Aparicio/Marycarmen K OXALATE and still continue to hold g tube, will continue to monitor.
--- NOTE | 2019-02-04 14:18 | General Progress Note ---
Assessment/Plan Assessment/Plan: Now hypernatremia 149+ Hyperkalemia now hypokalemia - see orders. Kayexalate on hold. ID called for ESBL UTI. Rx per ID. Pt has no family or DPOA. 2 MDs to sign for PICC line Subjective Allergies: Coded Allergies: No Known Allergies (Verified , 12/28/06) Subjective Confused. Vomited coffee ground. Objective Last 24 Hour Vital Signs Date Time Temp Pulse Resp B/P (MAP) Pulse Ox O2 Delivery O2 Flow Rate FiO2 02/04/19 11:55 98.0 76 18 136/55 (82) 98 02/04/19 09:00 Room Air 02/04/19 08:40 81 149/89 02/04/19 08:00 98.2 81 17 149/89 (109) 98 02/04/19 04:00 97.8 76 14 134/63 (86) 02/04/19 00:00 98.2 88 16 103/61 (75) 02/03/19 21:14 Room Air 02/03/19 20:00 98.0 87 20 144/66 (92) 02/03/19 15:50 98.4 96 20 146/61 (89) 96 Intake and Output 02/03/19 02/04/19 18:59 06:59 Intake Total 1250 ml 1125 ml Output Total 500 ml Balance 750 ml 1125 ml Intake Free Water 100 ml IV Total 1000 ml 1125 ml Tube Feeding 150 ml Output Urine Total 500 ml # Bowel Movements 1 Laboratory Tests 02/04/19 05:53: White Blood Count 9.3, Red Blood Count 2.44L, Hemoglobin 7.4L, Hematocrit 22.8L , Mean Corpuscular Volume 93, Mean Corpuscular Hemoglobin 30.2, Mean Corpuscular Hemoglobin Concent 32.4, Red Cell Distribution Width 12.8, Platelet Count 202, Mean Platelet Volume 5.5L, Neutrophils (%) (Auto) , Lymphocytes (%) ( Auto) , Monocytes (%) (Auto) , Eosinophils (%) (Auto) , Basophils (%) (Auto) , Differential Total Cells Counted 100, Neutrophils % (Manual) 70, Lymphocytes % ( Manual) 19L, Monocytes % (Manual) 7, Eosinophils % (Manual) 4H, Basophils % ( Manual) 0, Band Neutrophils 0, Platelet Estimate Adequate, Platelet Morphology Normal, Hypochromasia 1+, Sodium Level 146H, Potassium Level 2.7*L, Chloride Level 106, Carbon Dioxide Level 34H, Anion Gap 5, Blood Urea Nitrogen 54H, Creatinine 1.7H, Estimat Glomerular Filtration Rate , Glucose Level 158H, Calcium Level 8.5 02/04/19 12:32: Potassium Level 2.9L Height (Feet): 5 Height (Inches): 5.00 Weight (Pounds): 135 Objective CV RR Lungs CTA Abd SNT BS + E No CCe Ann López MD February 04, 2019 14:18
--- NOTE | 2019-02-04 15:00 | NUR ---
NURSE NOTES: Dr aguila visited pt, he is aware about g tube holding and other lab results. will continue to monitor.
--- NOTE | 2019-02-04 15:11 | General Progress Note ---
Assessment/Plan Problem List: (1) Pancreatitis ICD Codes: K85.90 - Acute pancreatitis without necrosis or infection, unspecified SNOMED: 86759470 (2) Hypertriglyceridemia ICD Codes: E78.1 - Pure hyperglyceridemia SNOMED: 920252433 (3) Gastroparesis ICD Codes: K31.84 - Gastroparesis SNOMED: 985576101 (4) Decubitus skin ulcer ICD Codes: L89.90 - Pressure ulcer of unspecified site, unspecified stage SNOMED: 689877712 (5) DM (6) G tube feedings ICD Codes: Z93.1 - Gastrostomy status SNOMED: 934742785, 264327195 (7) Duodenitis ICD Codes: K29.80 - Duodenitis without bleeding SNOMED: 36491618 (8) Duodenal ulcer ICD Codes: K26.9 - Duodenal ulcer, unspecified as acute or chronic, without hemorrhage or perforation SNOMED: 84483756 (9) Renal insufficiency ICD Codes: N28.9 - Disorder of kidney and ureter, unspecified SNOMED: 654626451, 177453483 Assessment/Plan: GTF on hold add reglan add lopid ppi repeat labs in am plan GTF tomorrow if stable KUB Subjective ROS Limited/Unobtainable: No Allergies: Coded Allergies: No Known Allergies (Verified , 12/28/06) Objective Last 24 Hour Vital Signs Date Time Temp Pulse Resp B/P (MAP) Pulse Ox O2 Delivery O2 Flow Rate FiO2 02/04/19 11:55 98.0 76 18 136/55 (82) 98 02/04/19 09:00 Room Air 02/04/19 08:40 81 149/89 02/04/19 08:00 98.2 81 17 149/89 (109) 98 02/04/19 04:00 97.8 76 14 134/63 (86) 02/04/19 00:00 98.2 88 16 103/61 (75) 02/03/19 21:14 Room Air 02/03/19 20:00 98.0 87 20 144/66 (92) 02/03/19 15:50 98.4 96 20 146/61 (89) 96 Intake and Output 02/03/19 02/04/19 18:59 06:59 Intake Total 1250 ml 1125 ml Output Total 500 ml Balance 750 ml 1125 ml Intake Free Water 100 ml IV Total 1000 ml 1125 ml Tube Feeding 150 ml Output Urine Total 500 ml # Bowel Movements 1 Laboratory Tests 02/04/19 05:53: White Blood Count 9.3, Red Blood Count 2.44L, Hemoglobin 7.4L, Hematocrit 22.8L , Mean Corpuscular Volume 93, Mean Corpuscular Hemoglobin 30.2, Mean Corpuscular Hemoglobin Concent 32.4, Red Cell Distribution Width 12.8, Platelet Count 202, Mean Platelet Volume 5.5L, Neutrophils (%) (Auto) , Lymphocytes (%) ( Auto) , Monocytes (%) (Auto) , Eosinophils (%) (Auto) , Basophils (%) (Auto) , Differential Total Cells Counted 100, Neutrophils % (Manual) 70, Lymphocytes % ( Manual) 19L, Monocytes % (Manual) 7, Eosinophils % (Manual) 4H, Basophils % ( Manual) 0, Band Neutrophils 0, Platelet Estimate Adequate, Platelet Morphology Normal, Hypochromasia 1+, Sodium Level 146H, Potassium Level 2.7*L, Chloride Level 106, Carbon Dioxide Level 34H, Anion Gap 5, Blood Urea Nitrogen 54H, Creatinine 1.7H, Estimat Glomerular Filtration Rate , Glucose Level 158H, Calcium Level 8.5 02/04/19 12:32: Potassium Level 2.9L Height (Feet): 5 Height (Inches): 5.00 Weight (Pounds): 135 General Appearance: alert EENT: normal ENT inspection Neck: supple Cardiovascular: normal rate Respiratory/Chest: decreased breath sounds Abdomen: normal bowel sounds, non tender, soft Extremities: non-tender Kentrell Brooks MD February 04, 2019 15:11
[2019-02-04] MEDS ORDERED: Metoclopramide 10mg/2ml Inj IVP PRN (15:14)
[2019-02-04 16:00] VITALS: BP 125/51
--- NOTE | 2019-02-04 16:06 | Surgery Progress Note ---
Surgery Progress Note Subjective Symptoms: improved, pain absent, tolerating diet, passing flatus, BM Objective Last 24 Hour Vital Signs Date Time Temp Pulse Resp B/P (MAP) Pulse Ox O2 Delivery O2 Flow Rate FiO2 02/04/19 16:00 98.1 77 17 125/51 (75) 98 02/04/19 11:55 98.0 76 18 136/55 (82) 98 02/04/19 09:00 Room Air 02/04/19 08:40 81 149/89 02/04/19 08:00 98.2 81 17 149/89 (109) 98 02/04/19 04:00 97.8 76 14 134/63 (86) 02/04/19 00:00 98.2 88 16 103/61 (75) 02/03/19 21:14 Room Air 02/03/19 20:00 98.0 87 20 144/66 (92) I&O Intake and Output 02/03/19 02/04/19 18:59 06:59 Intake Total 1250 ml 1125 ml Output Total 500 ml Balance 750 ml 1125 ml Intake Free Water 100 ml IV Total 1000 ml 1125 ml Tube Feeding 150 ml Output Urine Total 500 ml # Bowel Movements 1 Dressing: saturated Wound: clean Cardiovascular: RSR Respiratory: clear Abdomen: soft, flat, present bowel sounds, non-distended Extremities: no cyanosis Laboratory Tests Test 02/04/19 05:53 02/04/19 12:32 White Blood Count 9.3 K/UL (4.8-10.8) Red Blood Count 2.44 M/UL (4.70-6.10) L Hemoglobin 7.4 G/DL (14.2-18.0) L Hematocrit 22.8 % (42.0-52.0) L Mean Corpuscular Volume 93 FL (80-99) Mean Corpuscular Hemoglobin 30.2 PG (27.0-31.0) Mean Corpuscular Hemoglobin Concent 32.4 G/DL (32.0-36.0) Red Cell Distribution Width 12.8 % (11.6-14.8) Platelet Count 202 K/UL (150-450) Mean Platelet Volume 5.5 FL (6.5-10.1) L Neutrophils (%) (Auto) % (45.0-75.0) Lymphocytes (%) (Auto) % (20.0-45.0) Monocytes (%) (Auto) % (1.0-10.0) Eosinophils (%) (Auto) % (0.0-3.0) Basophils (%) (Auto) % (0.0-2.0) Differential Total Cells Counted 100 Neutrophils % (Manual) 70 % (45-75) Lymphocytes % (Manual) 19 % (20-45) L Monocytes % (Manual) 7 % (1-10) Eosinophils % (Manual) 4 % (0-3) H Basophils % (Manual) 0 % (0-2) Band Neutrophils 0 % (0-8) Platelet Estimate Adequate Platelet Morphology Normal Hypochromasia 1+ Sodium Level 146 MMOL/L (136-145) H Potassium Level 2.7 MMOL/L (3.5-5.1) *L 2.9 MMOL/L (3.5-5.1) L Chloride Level 106 MMOL/L (98-107) Carbon Dioxide Level 34 MMOL/L (21-32) H Anion Gap 5 mmol/L (5-15) Blood Urea Nitrogen 54 mg/dL (7-18) H Creatinine 1.7 MG/DL (0.55-1.30) H Estimat Glomerular Filtration Rate mL/min (>60) Glucose Level 158 MG/DL (74-106) H Calcium Level 8.5 MG/DL (8.5-10.1) Plan Problems: (1) Decubitus skin ulcer Assessment & Plan: Pt Skin assessment completed. Hyperpigmentation from previous pressure injury noted to sacrum with areas of dry brown skin pigmentation without erythema or induration.Non-tender when palpated.Erythema with excoriation noted to perianal area. Brown skin pigmentations noted to R and L ischial areas..Erythema noted to urinary meatus.Pt complained of burning .Moisture Barrier applied. Both heels are soft but blanchable. Pt denied pain or tenderness when each heel minimally palpated. No other areas of skin concerns noted. Educated pt on wound prevention.Encouraged to frequently shift and off-lift buttocks while repositioning. Encouraged to keep heels off-loaded with pillow. Tx.Plan:Apply Moisture Barrier to Vielka-Anal area. Scrotum and both ischail areas with each Incontinence care. Apply Moisture Barrier to Sacrum. Cover with Optifoam drsg. Change every 3 days and prn. Apply Cavilon Skin Barrier to both heels. Cover each heel with Optifoam drsg. Change every 7 days and prn. Encourage and assist as needed with repositioning at least every 2 hours or as tolerated. Off-load heels with pillow. (2) UTI (urinary tract infection) (3) Hyperkalemia (4) Renal insufficiency (5) Occult blood in stools (6) Duodenal ulcer Assessment & Plan: on PPI next EGD as per GI (7) Dehydration (8) Infection (9) Duodenitis (10) Coffee ground emesis (11) G tube feedings (12) Sepsis due to pneumonia (13) aspiration p (14) Anthony Licea February 04, 2019 16:06
--- NOTE | 2019-02-04 16:34 | NUR ---
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 LEUKOCYTOSIS VS: BP 149/89, P 81, T 98.2, RR 18, SpO2 98 RBC 2.44, Hgb 7.4, Hct 22.8, Na 146, K 2.7, BUN 54, Cr 1.7 CXR:Increased reticular markings, pronounced at the left base IS:MAGNESIUM SULFATE 100ml IVPB NOVOLOG SUBQ HEPARIN SUBQ NORVASC 10mg D5W x1L IV PLAN GTF 02/05 IF STABLE MED/SURG STATUS
--- NOTE | 2019-02-04 16:51 | Diagnostic Imaging Report ---
Indication: Abdominal pain Comparison: 07/30/2012 Single view of the abdomen obtained Findings: Bowel gas pattern is nonspecific. G-tube noted. No mass, ectopic calcifications, or abnormal gas collections are identified. Impression: No acute findings
--- NOTE | 2019-02-04 18:00 | NUR ---
NURSE NOTES: stool specimen collected and sent to the lab, waiting for result. will continue to monitor.
--- NOTE | 2019-02-04 19:30 | NUR ---
HAND-OFF: Report given to JORGE NICHOLS/CLARITA.
--- NOTE | 2019-02-04 19:50 | NUR ---
NURSE NOTES: RECEIVED PT FROM JORGE ANTON. PT IS AWAKE, AAO X2. ON ROOM AIR, UNLABORED BREATHING. DENIES PAIN SELENE. NO ACUTE DISTRESS NOTED. IV ON R HAND 24G IS PATENT AND INTACT. CONDOM CATH IS INTACT. SACRAL DRESSING IS INTACT. BED IS LOCKED AT THE LOWEST POSITION, BED ALARMS ACTIVE, SIDE RAILS UP X2, AND CALL LIGHT IS WITHIN REACH. WILL CONTINUE TO MONITOR
[2019-02-04 20:00] VITALS: BP 116/65
--- NOTE | 2019-02-05 01:00 | NUR ---
NURSE NOTES: PT REFUSED ACCU CHECK, VS AND TO BE TURNED.
[2019-02-05 04:00] VITALS: BP 126/56
[2019-02-05] MEDS: NovoLOG Insulin Flexpen SUBQ SCH ×4 (06:25→18:00)
--- NOTE | 2019-02-05 07:00 | NUR ---
NURSE NOTES: CHANGED SACRAL DRESSINGS, AND FEEDING TUBE DRESSINGS. DRESSINGS IN BILATERAL HEELS INTACT AND DRY. PLACED A NEW CONDOM CATH, INTACT AND PATENT, ANCHOR IN PLACE.
--- NOTE | 2019-02-05 07:20 | NUR ---
NURSE NOTES: Received pt from RN CLARITA/MAGDALENA, pt is confused and orient x2. pt is in RA, No SOB or acute respiratory distress noted. pt has g tube in place is working well. pt has intact iv access RH 24G is running well. Pt has condom cath is running well. all needs attended, bed is locked and is in the lowest position, call light within easy reach. will continue to monitor.
--- NOTE | 2019-02-05 07:32 | NUR ---
HAND-OFF: Report given to JORGE ANTON.
[2019-02-05 08:00] VITALS: BP 153/61
[2019-02-05] MEDS: Heparin 5000 units/ml inj SUBQ SCH ×2 (08:46→20:54)
[2019-02-05 10:09] LABS: HEMATOCRIT 20.7 % (42.0-52.0); MEAN CORPUSCULAR VOLUME 89 FL (80-99); PLATELET COUNT 184 K/UL (150-450); RED BLOOD COUNT 2.32 M/UL (4.70-6.10); RED CELL DISTRIBUTION WIDTH 11.9 % (11.6-14.8); WHITE BLOOD COUNT 8.1 K/UL (4.8-10.8)
[2019-02-05 10:15] LABS: HEMOGLOBIN 6.9 G/DL (14.2-18.0)
--- NOTE | 2019-02-05 10:28 | NUR ---
NURSE NOTES: Received HB 6.9, paged Dr BARKLEY, hasn't called back yet, SCHOOL SPEECH THERAPIST kim visited pt , he is aware about HB, stated he will F/U. SCHOOL SPEECH THERAPIST also is aware about NPO. will continue to monitor.
--- NOTE | 2019-02-05 10:47 | Infectious Diseases Prog Note ---
"Assessment/Plan Assessment/Plan antibiotics : none A 1. proteus | klebsiella UTI s/p rx 2. diabetes mellitus 3. hypertension 4. CVA 5. leucocytosis resolved 6. renal failure improving P 1. continue off antibiotics Subjective ROS Limited/Unobtainable: Yes Allergies: Coded Allergies: No Known Allergies (Verified , 12/28/06) Objective Vital Signs Last 24 Hour Vital Signs Date Time Temp Pulse Resp B/P (MAP) Pulse Ox O2 Delivery O2 Flow Rate FiO2 02/05/19 09:00 Room Air 02/05/19 08:42 78 153/61 02/05/19 08:00 98.2 78 18 153/61 (91) 99 02/05/19 04:00 97.7 68 18 126/56 (79) 100 02/04/19 21:00 Room Air 02/04/19 20:00 96.7 70 17 116/65 (82) 100 02/04/19 16:00 98.1 77 17 125/51 (75) 98 02/04/19 11:55 98.0 76 18 136/55 (82) 98 Height (Feet): 5 Height (Inches): 5.00 Weight (Pounds): 135 Respiratory/Chest: lungs clear Cardiovascular: normal rate, regular rhythm, no gallop/murmur Abdomen: soft, non tender, other - GT Extremities: no edema Laboratory Tests Test 02/04/19 12:32 02/04/19 17:45 02/05/19 09:55 Potassium Level 2.9 MMOL/L (3.5-5.1) L Pending Stool Occult Blood Pending White Blood Count 8.1 K/UL (4.8-10.8) Red Blood Count 2.32 M/UL (4.70-6.10) L Hemoglobin 6.9 G/DL (14.2-18.0) *L Hematocrit 20.7 % (42.0-52.0) L Mean Corpuscular Volume 89 FL (80-99) Mean Corpuscular Hemoglobin 29.9 PG (27.0-31.0) Mean Corpuscular Hemoglobin Concent 33.4 G/DL (32.0-36.0) Red Cell Distribution Width 11.9 % (11.6-14.8) Platelet Count 184 K/UL (150-450) Mean Platelet Volume 5.4 FL (6.5-10.1) L Neutrophils (%) (Auto) % (45.0-75.0) Lymphocytes (%) (Auto) % (20.0-45.0) Monocytes (%) (Auto) % (1.0-10.0) Eosinophils (%) (Auto) % (0.0-3.0) Basophils (%) (Auto) % (0.0-2.0) Neutrophils % (Manual) Pending Lymphocytes % (Manual) Pending Platelet Estimate Pending Platelet Morphology Pending Sodium Level Pending Chloride Level Pending Carbon Dioxide Level Pending Blood Urea Nitrogen Pending Creatinine Pending Estimat Glomerular Filtration Rate Pending Glucose Level Pending Calcium Level Pending Iron Level Pending Unsaturated Iron Binding Pending Total Bilirubin Pending Aspartate Amino Transf (AST/SGOT) Pending Alanine Aminotransferase (ALT/SGPT) Pending Alkaline Phosphatase Pending Total Protein Pending Albumin Pending Globulin Pending Triglycerides Level Pending Cholesterol Level Pending LDL Cholesterol Pending HDL Cholesterol Pending Cholesterol/HDL Ratio Pending Amylase Level Pending Lipase Pending Current Medications Medications (Trade) Dose Ordered Sig/Jarrod Route PRN Reason Start Time Stop Time Status Last Admin Dose Admin Amlodipine Besylate (Norvasc) 10 mg DAILY ORAL 02/03/19 09:15 03/05/19 09:14 02/05/19 08:42 Dextrose 1,000 ml @ 125 mls/hr Q8H IV 02/03/19 09:30 03/05/19 09:29 02/05/19 07:26 Dextrose (Dextrose 50%) 25 ml Q30M PRN IV Hypoglycemia 01/27/19 19:00 02/26/19 18:59 Dextrose (Dextrose 50%) 50 ml Q30M PRN IV Hypoglycemia 01/27/19 19:00 02/26/19 18:59 Gemfibrozil (Lopid) 600 mg TWICE A DAY GT 02/04/19 18:00 03/06/19 17:59 02/05/19 08:42 Heparin Sodium (Porcine) (Heparin 5000 units/ml) 5,000 units EVERY 12 HOURS SUBQ 01/27/19 21:00 02/26/19 20:59 02/05/19 08:46 Insulin Aspart (NovoLOG) Q6HR SUBQ 02/04/19 00:00 02/26/19 20:59 02/05/19 06:25 Metoclopramide HCl (Reglan) 5 mg Q6H PRN IVP Nausea & Vomiting 02/04/19 15:14 03/06/19 15:13 Ondansetron HCl (Zofran) 4 mg Q6H PRN IVP Nausea & Vomiting 02/03/19 09:15 03/05/19 09:14 02/03/19 09:33 Potassium Chloride 100 ml @ 50 mls/hr ONCE ONCE IVPB 02/05/19 10:45 02/05/19 12:44 UNV Potassium Chloride 100 ml @ 50 mls/hr ONCE ONCE IVPB 02/05/19 10:45 02/05/19 12:44 UNV Len Sarkar MD February 05, 2019 10:47"
[2019-02-05 10:53] LABS: ALANINE AMINOTRANSFERASE 28 U/L (12-78); ALBUMIN 2.7 G/DL (3.4-5.0); ALBUMIN/GLOBULIN RATIO 0.6 (1.0-2.7); ALKALINE PHOSPHATASE 39 U/L (46-116); ANION GAP 4 mmol/L (5-15); ASPARTATE AMINO TRANSFERASE 34 U/L (15-37); BILIRUBIN,TOTAL 0.5 MG/DL (0.2-1.0); BLOOD UREA NITROGEN 36 mg/dL (7-18); CARBON DIOXIDE 33 MMOL/L (21-32); CHLORIDE 92 MMOL/L (98-107); CHOLESTEROL 166 MG/DL (< 200); CREATININE 1.4 MG/DL (0.55-1.30); HDL CHOLESTEROL 34 MG/DL (40-60); SODIUM 129 MMOL/L (136-145); TRIGLYCERIDES 269 MG/DL (30-150)
[2019-02-05 10:59] LABS: POTASSIUM 2.4 MMOL/L (3.5-5.1)
[2019-02-05 11:05] LABS: AMYLASE 38 U/L (25-115)
--- NOTE | 2019-02-05 11:05 | NUR ---
NURSE NOTES: CAR WORKER kim is aware about K 2.4, stated he will F/U. will continue to monitor.
[2019-02-05 11:18] LABS: % IRON SATURATION 45 % (15-50); IRON 105 ug/dL (50-175); TOTAL IRON BINDING CAPACITY 234 ug/dL (250-450)
[2019-02-05 12:00] VITALS: BP 130/70
--- NOTE | 2019-02-05 12:22 | NUR ---
RD ASSESSMENT & RECOMMENDATIONS SEE CARE ACTIVITY FOR COMPLETE ASSESSMENT DAILY ESTIMATED NEEDS: Needs based on UnderweighT/ 49.5kg 30-35 kcals/kg 8402-3755 total kcals 1-1.5 g protein/kg 50-74 g total protein 25-30 mL/kg 1772-2318 total fluid mLs NUTRITION DIAGNOSIS: * Increased kcal and pro needs r/t underweight status as evidenced by pt @74% [place] Body Weight, BMI underweight per guidelines. * Swallowing difficulty R/T dysphagia as evidenced by pt is PEG dep CURRENT TF:NPO ENTERAL NUTRITION RECOMMENDATIONS: Glucerna 1.2 @ 55ml/hr x 24 hrs to provide 1320ml, 1584kcal, 79g prot, 1063ml free water * MEDICALLY ABLE, RESUME TF * Rec Glucerna 1.2 @ 25ml/hr x 6 hrs, advance 10ml q 4-6 hrs as tolerated to goal rate. * HOB over 30 degrees/ water flush per MD ADDITIONAL RECOMMENDATIONS: * Per SNF, HT: 5'7", WT: 109#. * TXR PT TO BED WITH BEDSCALE, OBTAIN CALIBRATED WEEKLY WTS * Monitor lytes, replete as needed (K critically low) * Monitor ability to feed, NPO status- s/p coffee ground emesis -now critically low hgb, GI following . .
--- NOTE | 2019-02-05 13:06 | GI Progress Note ---
Assessment/Plan Problems: (1) Anemia ICD Codes: D64.9 - Anemia, unspecified SNOMED: 241929586 (2) DM (3) G tube feedings ICD Codes: Z93.1 - Gastrostomy status SNOMED: 167861148, 469742415 (4) Duodenal ulcer ICD Codes: K26.9 - Duodenal ulcer, unspecified as acute or chronic, without hemorrhage or perforation SNOMED: 86545287 (5) Dehydration ICD Codes: E86.0 - Dehydration SNOMED: 30874527 Status: unchanged Status Narrative Discussed with Dr. Brooks. Assessment/Plan KUB negative EGD scheduled for next friday to evaluate anemia ok to start GTFs, NPO day prior procedure add reglan add lopid prn transfusions ppi BID repeat labs in am The patient was seen and examined at bedside and all new and available data was reviewed in the patients chart. I agree with the above findings, impression and plan. (Patient seen earlier today. Signature stamp does not reflect patient encounter time.). - Kentrell Brooks MD Subjective Subjective limited Objective Last 24 Hour Vital Signs Date Time Temp Pulse Resp B/P (MAP) Pulse Ox O2 Delivery O2 Flow Rate FiO2 02/05/19 12:00 97.1 63 18 130/70 (90) 97 02/05/19 09:00 Room Air 02/05/19 08:42 78 153/61 02/05/19 08:00 98.2 78 18 153/61 (91) 99 02/05/19 04:00 97.7 68 18 126/56 (79) 100 02/04/19 21:00 Room Air 02/04/19 20:00 96.7 70 17 116/65 (82) 100 02/04/19 16:00 98.1 77 17 125/51 (75) 98 Intake and Output 02/04/19 02/05/19 18:59 06:59 Intake Total 1550 ml 875 ml Output Total 525 ml Balance 1025 ml 875 ml IV Total 1550 ml 875 ml Output Urine Total 525 ml # Voids 2 # Bowel Movements 1 Laboratory Tests Test 02/04/19 17:45 02/05/19 09:55 Stool Occult Blood Positive (NEGATIVE) White Blood Count 8.1 K/UL (4.8-10.8) Red Blood Count 2.32 M/UL (4.70-6.10) L Hemoglobin 6.9 G/DL (14.2-18.0) *L Hematocrit 20.7 % (42.0-52.0) L Mean Corpuscular Volume 89 FL (80-99) Mean Corpuscular Hemoglobin 29.9 PG (27.0-31.0) Mean Corpuscular Hemoglobin Concent 33.4 G/DL (32.0-36.0) Red Cell Distribution Width 11.9 % (11.6-14.8) Platelet Count 184 K/UL (150-450) Mean Platelet Volume 5.4 FL (6.5-10.1) L Neutrophils (%) (Auto) % (45.0-75.0) Lymphocytes (%) (Auto) % (20.0-45.0) Monocytes (%) (Auto) % (1.0-10.0) Eosinophils (%) (Auto) % (0.0-3.0) Basophils (%) (Auto) % (0.0-2.0) Differential Total Cells Counted 100 Neutrophils % (Manual) 82 % (45-75) H Lymphocytes % (Manual) 12 % (20-45) L Monocytes % (Manual) 4 % (1-10) Eosinophils % (Manual) 2 % (0-3) Basophils % (Manual) 0 % (0-2) Band Neutrophils 0 % (0-8) Platelet Estimate Adequate Platelet Morphology Normal Hypochromasia 1+ Sodium Level 129 MMOL/L (136-145) L Potassium Level 2.4 MMOL/L (3.5-5.1) *L Chloride Level 92 MMOL/L (98-107) L Carbon Dioxide Level 33 MMOL/L (21-32) H Anion Gap 4 mmol/L (5-15) L Blood Urea Nitrogen 36 mg/dL (7-18) H Creatinine 1.4 MG/DL (0.55-1.30) H Estimat Glomerular Filtration Rate mL/min (>60) Glucose Level 179 MG/DL (74-106) H Calcium Level 8.0 MG/DL (8.5-10.1) L Iron Level 105 ug/dL (50-175) Total Iron Binding Capacity 234 ug/dL (250-450) L Percent Iron Saturation 45 % (15-50) Unsaturated Iron Binding 129 ug/dL (112-346) Total Bilirubin 0.5 MG/DL (0.2-1.0) Aspartate Amino Transf (AST/SGOT) 34 U/L (15-37) Alanine Aminotransferase (ALT/SGPT) 28 U/L (12-78) Alkaline Phosphatase 39 U/L (46-116) L Total Protein 6.9 G/DL (6.4-8.2) Albumin 2.7 G/DL (3.4-5.0) L Globulin 4.2 g/dL Albumin/Globulin Ratio 0.6 (1.0-2.7) L Triglycerides Level 269 MG/DL (30-150) H Cholesterol Level 166 MG/DL (< 200) LDL Cholesterol 97 mg/dL (<100) HDL Cholesterol 34 MG/DL (40-60) L Cholesterol/HDL Ratio 4.9 (3.3-4.4) H Amylase Level 38 U/L (25-115) Lipase 136 U/L (73-393) Height (Feet): 5 Height (Inches): 5.00 Weight (Pounds): 135 Abdominal Exam: GT site - c/d/i Supa Owens NP February 05, 2019 13:06
--- NOTE | 2019-02-05 13:29 | NUR ---
NURSE NOTES: Pt can't sign the consent form for blood transfusion and doesn't have next of kin to sign too, so PROGRAM ENGINEER YOVANA sined the consent form and RN GUILLERMO and charge nurse LOAN Conroy signed it as witness.
--- NOTE | 2019-02-05 14:16 | Surgery Progress Note ---
Surgery Progress Note Subjective Additional Comments no acute events. asking how his brother is doing. states he feels well. Objective Last 24 Hour Vital Signs Date Time Temp Pulse Resp B/P (MAP) Pulse Ox O2 Delivery O2 Flow Rate FiO2 02/05/19 12:00 97.1 63 18 130/70 (90) 97 02/05/19 09:00 Room Air 02/05/19 08:42 78 153/61 02/05/19 08:00 98.2 78 18 153/61 (91) 99 02/05/19 04:00 97.7 68 18 126/56 (79) 100 02/04/19 21:00 Room Air 02/04/19 20:00 96.7 70 17 116/65 (82) 100 02/04/19 16:00 98.1 77 17 125/51 (75) 98 I&O Intake and Output 02/04/19 02/05/19 18:59 06:59 Intake Total 1550 ml 875 ml Output Total 525 ml Balance 1025 ml 875 ml IV Total 1550 ml 875 ml Output Urine Total 525 ml # Voids 2 # Bowel Movements 1 Dressing: dry Wound: clean Cardiovascular: RSR Respiratory: clear Abdomen: soft, flat, present bowel sounds, non-distended Extremities: no cyanosis Laboratory Tests Test 02/04/19 17:45 02/05/19 09:55 Stool Occult Blood Positive (NEGATIVE) White Blood Count 8.1 K/UL (4.8-10.8) Red Blood Count 2.32 M/UL (4.70-6.10) L Hemoglobin 6.9 G/DL (14.2-18.0) *L Hematocrit 20.7 % (42.0-52.0) L Mean Corpuscular Volume 89 FL (80-99) Mean Corpuscular Hemoglobin 29.9 PG (27.0-31.0) Mean Corpuscular Hemoglobin Concent 33.4 G/DL (32.0-36.0) Red Cell Distribution Width 11.9 % (11.6-14.8) Platelet Count 184 K/UL (150-450) Mean Platelet Volume 5.4 FL (6.5-10.1) L Neutrophils (%) (Auto) % (45.0-75.0) Lymphocytes (%) (Auto) % (20.0-45.0) Monocytes (%) (Auto) % (1.0-10.0) Eosinophils (%) (Auto) % (0.0-3.0) Basophils (%) (Auto) % (0.0-2.0) Differential Total Cells Counted 100 Neutrophils % (Manual) 82 % (45-75) H Lymphocytes % (Manual) 12 % (20-45) L Monocytes % (Manual) 4 % (1-10) Eosinophils % (Manual) 2 % (0-3) Basophils % (Manual) 0 % (0-2) Band Neutrophils 0 % (0-8) Platelet Estimate Adequate Platelet Morphology Normal Hypochromasia 1+ Sodium Level 129 MMOL/L (136-145) L Potassium Level 2.4 MMOL/L (3.5-5.1) *L Chloride Level 92 MMOL/L (98-107) L Carbon Dioxide Level 33 MMOL/L (21-32) H Anion Gap 4 mmol/L (5-15) L Blood Urea Nitrogen 36 mg/dL (7-18) H Creatinine 1.4 MG/DL (0.55-1.30) H Estimat Glomerular Filtration Rate mL/min (>60) Glucose Level 179 MG/DL (74-106) H Calcium Level 8.0 MG/DL (8.5-10.1) L Iron Level 105 ug/dL (50-175) Total Iron Binding Capacity 234 ug/dL (250-450) L Percent Iron Saturation 45 % (15-50) Unsaturated Iron Binding 129 ug/dL (112-346) Total Bilirubin 0.5 MG/DL (0.2-1.0) Aspartate Amino Transf (AST/SGOT) 34 U/L (15-37) Alanine Aminotransferase (ALT/SGPT) 28 U/L (12-78) Alkaline Phosphatase 39 U/L (46-116) L Total Protein 6.9 G/DL (6.4-8.2) Albumin 2.7 G/DL (3.4-5.0) L Globulin 4.2 g/dL Albumin/Globulin Ratio 0.6 (1.0-2.7) L Triglycerides Level 269 MG/DL (30-150) H Cholesterol Level 166 MG/DL (< 200) LDL Cholesterol 97 mg/dL (<100) HDL Cholesterol 34 MG/DL (40-60) L Cholesterol/HDL Ratio 4.9 (3.3-4.4) H Amylase Level 38 U/L (25-115) Lipase 136 U/L (73-393) Plan Problems: (1) Decubitus skin ulcer Assessment & Plan: Hyperpigmentation from previous pressure injury noted to sacrum with areas of dry brown skin pigmentation without erythema or induration.Non-tender when palpated.Erythema with excoriation noted to perianal area. Brown skin pigmentations noted to R and L ischial areas..Erythema noted to urinary meatus.Pt complained of burning .Moisture Barrier applied. Both heels are soft but blanchable. Pt denied pain or tenderness when each heel minimally palpated. No other areas of skin concerns noted. Educated pt on wound prevention.Encouraged to frequently shift and off-lift buttocks while repositioning. Encouraged to keep heels off-loaded with pillow. Tx.Plan: Apply Moisture Barrier to Vielka-Anal area. Scrotum and both ischail areas with each Incontinence care. Apply Moisture Barrier to Sacrum. Cover with Optifoam drsg. Change every 3 days and prn. Apply Cavilon Skin Barrier to both heels. Cover each heel with Optifoam drsg. Change every 7 days and prn. Encourage and assist as needed with repositioning at least every 2 hours or as tolerated. Off-load heels with pillow. (2) UTI (urinary tract infection) (3) Hyperkalemia (4) Renal insufficiency (5) Occult blood in stools (6) Duodenal ulcer Assessment & Plan: on PPI next EGD as per GI (7) Dehydration (8) Infection (9) Duodenitis (10) Coffee ground emesis (11) G tube feedings (12) Sepsis due to pneumonia (13) aspiration p (14) Anthony Licea February 05, 2019 14:16
--- NOTE | 2019-02-05 15:23 | General Progress Note ---
Assessment/Plan Status: unchanged Assessment/Plan: Now Hyponatremia 124 Hyporkalemia - see orders. Severe Iron Def. For EGD. See Orders. ID called for ESBL UTI. Rx per ID. Pt has no family or DPOA. 2 MDs to sign for PICC line Subjective Allergies: Coded Allergies: No Known Allergies (Verified , 12/28/06) Subjective Confused. Vomited coffee ground. Objective Last 24 Hour Vital Signs Date Time Temp Pulse Resp B/P (MAP) Pulse Ox O2 Delivery O2 Flow Rate FiO2 02/05/19 12:00 97.1 63 18 130/70 (90) 97 02/05/19 09:00 Room Air 02/05/19 08:42 78 153/61 02/05/19 08:00 98.2 78 18 153/61 (91) 99 02/05/19 04:00 97.7 68 18 126/56 (79) 100 02/04/19 21:00 Room Air 02/04/19 20:00 96.7 70 17 116/65 (82) 100 02/04/19 16:00 98.1 77 17 125/51 (75) 98 Intake and Output 02/04/19 02/05/19 18:59 06:59 Intake Total 1550 ml 875 ml Output Total 525 ml Balance 1025 ml 875 ml IV Total 1550 ml 875 ml Output Urine Total 525 ml # Voids 2 # Bowel Movements 1 Laboratory Tests 02/04/19 17:45: Stool Occult Blood Positive 02/05/19 09:55: White Blood Count 8.1, Red Blood Count 2.32L, Hemoglobin 6.9*L, Hematocrit 20.7L , Mean Corpuscular Volume 89, Mean Corpuscular Hemoglobin 29.9, Mean Corpuscular Hemoglobin Concent 33.4, Red Cell Distribution Width 11.9, Platelet Count 184, Mean Platelet Volume 5.4L, Neutrophils (%) (Auto) , Lymphocytes (%) ( Auto) , Monocytes (%) (Auto) , Eosinophils (%) (Auto) , Basophils (%) (Auto) , Differential Total Cells Counted 100, Neutrophils % (Manual) 82H, Lymphocytes % (Manual) 12L, Monocytes % (Manual) 4, Eosinophils % (Manual) 2, Basophils % ( Manual) 0, Band Neutrophils 0, Platelet Estimate Adequate, Platelet Morphology Normal, Hypochromasia 1+, Sodium Level 129L, Potassium Level 2.4*L, Chloride Level 92L, Carbon Dioxide Level 33H, Anion Gap 4L, Blood Urea Nitrogen 36H, Creatinine 1.4H, Estimat Glomerular Filtration Rate , Glucose Level 179H, Calcium Level 8.0L, Iron Level 105, Total Iron Binding Capacity 234L, Percent Iron Saturation 45, Unsaturated Iron Binding 129, Total Bilirubin 0.5, Aspartate Amino Transf (AST/SGOT) 34, Alanine Aminotransferase (ALT/SGPT) 28, Alkaline Phosphatase 39L, Total Protein 6.9, Albumin 2.7L, Globulin 4.2, Albumin /Globulin Ratio 0.6L, Triglycerides Level 269H, Cholesterol Level 166, LDL Cholesterol 97, HDL Cholesterol 34L, Cholesterol/HDL Ratio 4.9H, Amylase Level 38, Lipase 136 Height (Feet): 5 Height (Inches): 5.00 Weight (Pounds): 135 Objective CV RR Lungs CTA Abd SNT BS + E No CCe Ann López MD February 05, 2019 15:23
--- NOTE | 2019-02-05 15:28 | NUR ---
NURSE NOTES: pt has order for EGD, because pt can't sign consent form and doesn't have any next of kin, consent for was signed by Dr jimenez. will continue to monitor.
[2019-02-05 16:00] VITALS: BP 137/59
--- NOTE | 2019-02-05 16:42 | NUR ---
NURSE NOTES: during blood transfusion at 1615, after 300cc infusion, pt started dark red vomiting. blood transfusion stopped, pt is orient x2 as before. V/S checked BP 161/80 HR 89-93 SPO2 99% RR 20 T 97.2, charge nurse LOAN Conroy and KAY YEN aware. KAY YEN ordered to continue blood transfusion, start Protonix drip, and CBC one hour after blood transfusion. noted and carried out. will continue to monitor.
[2019-02-05] MEDS: 1/2NS w/KCl 20mEq 1000ml 1,000 ML IV SCH (17:22)
--- NOTE | 2019-02-05 17:30 | NUR ---
NURSE NOTES: blood transfusion started at 1400 and finished 1720 with V/S 1400 BP 135/54 HR 81 T 97.7 RR 20 SPO2 99%, 1415 BP 132/53 HR 78 T 97.6 RR 20 SPO2 99%, 1445 BP 130/60 HR 84 T 97.6 RR 20 SPO2 99%, 1515 BP 129/55 HR 85 T 97.5 RR 20 SPO2 99%, 1615 BP 161/80 HR 89 T 97.2 RR 20 SPO2 99%, 1720 BP 144/64 HR 80 T 97.7 RR 20 SPO2 99%. KAY YEN is aware. will continue to monitor.
--- NOTE | 2019-02-05 19:00 | NUR ---
NURSE NOTES: no protonix drip in the unit, called pharmacy x2 spoke with [facility] still isn't in the unit. endorsed to JORGE SILVA to F/U. and endorsed to JORGE SILVA about NPO from Friday for EGD.
[2019-02-05] MEDS: Pantoprazole 80 MG in NS 250 ML IV SCH (19:38)
[2019-02-05 20:00] VITALS: BP 118/60
--- NOTE | 2019-02-05 20:19 | NUR ---
HAND-OFF: Report given to JORGE SILVA.Pt is stable,V/S stabe.
--- NOTE | 2019-02-05 20:20 | NUR ---
NURSE NOTES: RECEIVED PT FROM JORGE ANTON. PT IS AWAKE, AAO X2. ON ROOM AIR, UNLABORED BREATHING. DENIES PAIN AT this time/ NO ACUTE DISTRESS NOTED. IV ON R HAND 24G IS PATENT AND INTACT running IVF with 20 mEq K. CONDOM CATH was removed by patient. SACRAL DRESSING has been changed and is INTACT. BED IS LOCKED AT THE LOWEST POSITION, BED ALARMS on, SIDE RAILS UP X2, AND CALL LIGHT IS WITHIN REACH. WILL CONTINUE TO MONITOR
[2019-02-05 20:29] LABS: BASOPHILS % (AUTO) 1.2 % (0.0-2.0); EOSINOPHILS % (AUTO) 0.8 % (0.0-3.0); HEMOGLOBIN 9.1 G/DL (14.2-18.0); MEAN CORPUSCULAR VOLUME 85 FL (80-99); MONOCYTES % (AUTO) 7.7 % (1.0-10.0); NEUTROPHILS % (AUTO) 82.3 % (45.0-75.0); PLATELET COUNT 221 K/UL (150-450); RED BLOOD COUNT 3.05 M/UL (4.70-6.10); RED CELL DISTRIBUTION WIDTH 12.2 % (11.6-14.8); WHITE BLOOD COUNT 12.6 K/UL (4.8-10.8)
[2019-02-05] MEDS: Iron Sucrose 100 MG in NS 55 ML IV SCH (20:55)
[2019-02-05] MEDS ORDERED: EPOETIN ALFA 4000 UNIT/ML SUBQ SCH (21:00)
[2019-02-05] MEDS ORDERED: Epoetin Alfa-EPBX (NON ESRD)4000 units/ml vial SUBQ SCH (21:00)
--- NOTE | 2019-02-05 22:14 | NUR ---
Pt was vomiting dark red blood. About 100 ml out. Will continue to monitor
[2019-02-06] VITALS: BP 127/59
[2019-02-06 04:00] VITALS: BP 137/66
[2019-02-06] MEDS: Pantoprazole 80 MG in NS 250 ML IV SCH ×3 (04:00→22:23)
[2019-02-06] MEDS: 1/2NS w/KCl 20mEq 1000ml 1,000 ML IV SCH (04:50)
[2019-02-06] MEDS: NovoLOG Insulin Flexpen SUBQ SCH ×4 (06:00→17:07)
[2019-02-06 07:08] LABS: ANION GAP 5 mmol/L (5-15); BLOOD UREA NITROGEN 43 mg/dL (7-18); CALCIUM 7.9 MG/DL (8.5-10.1); CARBON DIOXIDE 30 MMOL/L (21-32); CHLORIDE 96 MMOL/L (98-107); CREATININE 1.4 MG/DL (0.55-1.30); POTASSIUM 2.9 MMOL/L (3.5-5.1); SODIUM 131 MMOL/L (136-145)
[2019-02-06 07:12] LABS: PHOSPHORUS 3.3 MG/DL (2.5-4.9)
--- NOTE | 2019-02-06 07:15 | NUR ---
HAND-OFF: Report given to JORGE Carrillo.
--- NOTE | 2019-02-06 07:15 | NUR ---
NURSE NOTES: Received patient in bed, awake,oriented [id number] ,reality orientation provided. no sign of respiratory distress noted. on NPO g-tube clamped. on protonix drip at 25m/h and IVF on going, incontinent of urine and bowel, on fall and pressure ulcer prevention, turn q2h for comfort and good circulation. , bed is locked and is in the lowest position, call light within easy reach. will continue to monitor emiliano de los santos
[2019-02-06 07:37] LABS: BASOPHILS % (AUTO) 0.5 % (0.0-2.0); EOSINOPHILS % (AUTO) 0.8 % (0.0-3.0); HEMATOCRIT 25.2 % (42.0-52.0); HEMOGLOBIN 8.9 G/DL (14.2-18.0); MEAN CORPUSCULAR VOLUME 87 FL (80-99); MONOCYTES % (AUTO) 8.3 % (1.0-10.0); NEUTROPHILS % (AUTO) 81.4 % (45.0-75.0); PLATELET COUNT 200 K/UL (150-450); RED BLOOD COUNT 2.91 M/UL (4.70-6.10); RED CELL DISTRIBUTION WIDTH 12.1 % (11.6-14.8); WHITE BLOOD COUNT 11.6 K/UL (4.8-10.8)
[2019-02-06 07:58] VITALS: BP 128/56
[2019-02-06] MEDS: Heparin 5000 units/ml inj SUBQ SCH ×2 (08:15→20:50)
[2019-02-06] MEDS ORDERED: Tubing IV Secondary IV ONE (08:51)
[2019-02-06] MEDS ORDERED: NS 275ml ONE (08:51)
--- NOTE | 2019-02-06 10:19 | Infectious Diseases Prog Note ---
"Assessment/Plan Assessment/Plan antibiotics : none A 1. proteus | klebsiella UTI s/p rx 2. diabetes mellitus 3. hypertension 4. CVA 5. leucocytosis resolved 6. renal failure improving P 1. continue off antibiotics Subjective ROS Limited/Unobtainable: Yes Allergies: Coded Allergies: No Known Allergies (Verified , 12/28/06) Objective Vital Signs Last 24 Hour Vital Signs Date Time Temp Pulse Resp B/P (MAP) Pulse Ox O2 Delivery O2 Flow Rate FiO2 02/06/19 08:15 76 128/56 02/06/19 08:02 Room Air 02/06/19 07:58 97.0 76 20 128/56 (80) 100 02/06/19 04:00 97.4 77 18 137/66 (89) 97 02/06/19 00:00 97.4 85 19 127/59 (81) 97 02/05/19 21:00 Room Air 02/05/19 20:00 97.8 86 19 118/60 (79) 97 02/05/19 16:00 98.1 83 17 137/59 (85) 98 02/05/19 12:00 97.1 63 18 130/70 (90) 97 Height (Feet): 5 Height (Inches): 5.00 Weight (Pounds): 124 Respiratory/Chest: lungs clear Cardiovascular: normal rate, regular rhythm, no gallop/murmur Abdomen: soft, non tender, other - GT Extremities: no edema Laboratory Tests Test 02/05/19 20:20 02/06/19 06:29 White Blood Count 12.6 K/UL (4.8-10.8) #H 11.6 K/UL (4.8-10.8) H Red Blood Count 3.05 M/UL (4.70-6.10) L 2.91 M/UL (4.70-6.10) L Hemoglobin 9.1 G/DL (14.2-18.0) #L 8.9 G/DL (14.2-18.0) L Hematocrit 26.0 % (42.0-52.0) L 25.2 % (42.0-52.0) L Mean Corpuscular Volume 85 FL (80-99) 87 FL (80-99) Mean Corpuscular Hemoglobin 30.0 PG (27.0-31.0) 30.6 PG (27.0-31.0) Mean Corpuscular Hemoglobin Concent 35.2 G/DL (32.0-36.0) 35.4 G/DL (32.0-36.0) Red Cell Distribution Width 12.2 % (11.6-14.8) 12.1 % (11.6-14.8) Platelet Count 221 K/UL (150-450) 200 K/UL (150-450) Mean Platelet Volume 4.9 FL (6.5-10.1) L 5.9 FL (6.5-10.1) L Neutrophils (%) (Auto) 82.3 % (45.0-75.0) H 81.4 % (45.0-75.0) H Lymphocytes (%) (Auto) 8.0 % (20.0-45.0) L 9.0 % (20.0-45.0) L Monocytes (%) (Auto) 7.7 % (1.0-10.0) 8.3 % (1.0-10.0) Eosinophils (%) (Auto) 0.8 % (0.0-3.0) 0.8 % (0.0-3.0) Basophils (%) (Auto) 1.2 % (0.0-2.0) 0.5 % (0.0-2.0) Sodium Level 131 MMOL/L (136-145) L Potassium Level 2.9 MMOL/L (3.5-5.1) L Chloride Level 96 MMOL/L (98-107) L Carbon Dioxide Level 30 MMOL/L (21-32) Anion Gap 5 mmol/L (5-15) Blood Urea Nitrogen 43 mg/dL (7-18) H Creatinine 1.4 MG/DL (0.55-1.30) H Estimat Glomerular Filtration Rate mL/min (>60) Glucose Level 101 MG/DL (74-106) Calcium Level 7.9 MG/DL (8.5-10.1) L Phosphorus Level 3.3 MG/DL (2.5-4.9) Magnesium Level 2.0 MG/DL (1.8-2.4) Current Medications Medications (Trade) Dose Ordered Sig/Jarrod Route PRN Reason Start Time Stop Time Status Last Admin Dose Admin Amlodipine Besylate (Norvasc) 10 mg DAILY ORAL 02/03/19 09:15 03/05/19 09:14 02/06/19 08:15 Dextrose (Dextrose 50%) 25 ml Q30M PRN IV Hypoglycemia 01/27/19 19:00 02/26/19 18:59 Dextrose (Dextrose 50%) 50 ml Q30M PRN IV Hypoglycemia 01/27/19 19:00 02/26/19 18:59 Epoetin Juwan (Epoetin Juwan(ESRD on dialysis)) 8,000 unit FRI-FRI-FRI SUBQ 02/05/19 21:00 03/07/19 20:59 02/05/19 20:54 Gemfibrozil (Lopid) 600 mg TWICE A DAY GT 02/04/19 18:00 03/06/19 17:59 02/06/19 08:15 Heparin Sodium (Porcine) (Heparin 5000 units/ml) 5,000 units EVERY 12 HOURS SUBQ 01/27/19 21:00 02/26/19 20:59 02/05/19 20:54 Insulin Aspart (NovoLOG) Q6HR SUBQ 02/04/19 00:00 02/26/19 20:59 02/05/19 11:23 Iron Sucrose 100 mg/Sodium Chloride 60 ml @ 240 mls/hr BEDTIME IV 02/05/19 21:00 02/09/19 21:14 02/05/19 20:55 Metoclopramide HCl (Reglan) 5 mg Q6H PRN IVP Nausea & Vomiting 02/04/19 15:14 03/06/19 15:13 Ondansetron HCl (Zofran) 4 mg Q6H PRN IVP Nausea & Vomiting 02/03/19 09:15 03/05/19 09:14 02/05/19 14:45 Pantoprazole 80 mg/Sodium Chloride 250 ml @ 25 mls/hr Q10H IV 02/05/19 18:00 03/07/19 17:59 02/06/19 08:16 Sodium 1,000 ml @ 75 mls/hr [id number] IV 02/05/19 15:30 03/07/19 15:29 02/05/19 17:22 Len Sarkar MD February 06, 2019 10:19"
--- NOTE | 2019-02-06 10:25 | General Progress Note ---
Assessment/Plan Status: unchanged Assessment/Plan: Now Hyponatremia Hypokalemia - see orders. Severe Iron Def. For EGD. See Orders. ID called for ESBL UTI. Rx per ID. Pt has no family or DPOA. 2 MDs to sign for PICC line Subjective Allergies: Coded Allergies: No Known Allergies (Verified , 12/28/06) Subjective Confused. Vomited coffee ground. Objective Last 24 Hour Vital Signs Date Time Temp Pulse Resp B/P (MAP) Pulse Ox O2 Delivery O2 Flow Rate FiO2 02/06/19 08:15 76 128/56 02/06/19 08:02 Room Air 02/06/19 07:58 97.0 76 20 128/56 (80) 100 02/06/19 04:00 97.4 77 18 137/66 (89) 97 02/06/19 00:00 97.4 85 19 127/59 (81) 97 02/05/19 21:00 Room Air 02/05/19 20:00 97.8 86 19 118/60 (79) 97 02/05/19 16:00 98.1 83 17 137/59 (85) 98 02/05/19 12:00 97.1 63 18 130/70 (90) 97 Intake and Output 02/05/19 02/06/19 19:00 07:00 Intake Total 950 ml 785 ml Balance 950 ml 785 ml IV Total 950 ml 785 ml # Bowel Movements 3 Laboratory Tests 02/05/19 20:20: White Blood Count 12.6#H, Red Blood Count 3.05L, Hemoglobin 9.1#L, Hematocrit 26.0L, Mean Corpuscular Volume 85, Mean Corpuscular Hemoglobin 30.0, Mean Corpuscular Hemoglobin Concent 35.2, Red Cell Distribution Width 12.2, Platelet Count 221, Mean Platelet Volume 4.9L, Neutrophils (%) (Auto) 82.3H, Lymphocytes (%) (Auto) 8.0L, Monocytes (%) (Auto) 7.7, Eosinophils (%) (Auto) 0.8, Basophils (%) (Auto) 1.2 02/06/19 06:29: White Blood Count 11.6H, Red Blood Count 2.91L, Hemoglobin 8.9L, Hematocrit 25.2L, Mean Corpuscular Volume 87, Mean Corpuscular Hemoglobin 30.6, Mean Corpuscular Hemoglobin Concent 35.4, Red Cell Distribution Width 12.1, Platelet Count 200, Mean Platelet Volume 5.9L, Neutrophils (%) (Auto) 81.4H, Lymphocytes (%) (Auto) 9.0L, Monocytes (%) (Auto) 8.3, Eosinophils (%) (Auto) 0.8, Basophils (%) (Auto) 0.5, Sodium Level 131L, Potassium Level 2.9L, Chloride Level 96L, Carbon Dioxide Level 30, Anion Gap 5, Blood Urea Nitrogen 43H, Creatinine 1.4H, Estimat Glomerular Filtration Rate , Glucose Level 101, Calcium Level 7.9L, Phosphorus Level 3.3, Magnesium Level 2.0 Height (Feet): 5 Height (Inches): 5.00 Weight (Pounds): 124 Objective CV RR Lungs CTA Abd SNT BS + E No CCe Ann López MD February 06, 2019 10:25
[2019-02-06] MEDS ORDERED: D5NS w/KCl 40mEq 1000ml 1,000 ML IV SCH ×2 (11:30)
[2019-02-06] MEDS ORDERED: NS w/KCl 20mEq 1,000 ML IV SCH (11:30)
[2019-02-06 12:00] VITALS: BP 129/61
[2019-02-06 15:55] VITALS: BP 115/50
--- NOTE | 2019-02-06 16:01 | Surgery Progress Note ---
Surgery Progress Note Subjective Additional Comments no acute events. comfortable. stable. Objective Last 24 Hour Vital Signs Date Time Temp Pulse Resp B/P (MAP) Pulse Ox O2 Delivery O2 Flow Rate FiO2 02/06/19 15:55 98.0 72 18 115/50 (71) 98 02/06/19 12:00 97.2 75 18 129/61 (83) 97 02/06/19 08:15 76 128/56 02/06/19 08:02 Room Air 02/06/19 07:58 97.0 76 20 128/56 (80) 100 02/06/19 04:00 97.4 77 18 137/66 (89) 97 02/06/19 00:00 97.4 85 19 127/59 (81) 97 02/05/19 21:00 Room Air 02/05/19 20:00 97.8 86 19 118/60 (79) 97 I&O Intake and Output 02/05/19 02/06/19 19:00 07:00 Intake Total 950 ml 785 ml Balance 950 ml 785 ml IV Total 950 ml 785 ml # Bowel Movements 3 Dressing: dry Wound: other Drains: other Cardiovascular: RSR Respiratory: clear Abdomen: soft, present bowel sounds, non-distended Extremities: no tenderness, no cyanosis Laboratory Tests Test 02/05/19 20:20 02/06/19 06:29 White Blood Count 12.6 K/UL (4.8-10.8) #H 11.6 K/UL (4.8-10.8) H Red Blood Count 3.05 M/UL (4.70-6.10) L 2.91 M/UL (4.70-6.10) L Hemoglobin 9.1 G/DL (14.2-18.0) #L 8.9 G/DL (14.2-18.0) L Hematocrit 26.0 % (42.0-52.0) L 25.2 % (42.0-52.0) L Mean Corpuscular Volume 85 FL (80-99) 87 FL (80-99) Mean Corpuscular Hemoglobin 30.0 PG (27.0-31.0) 30.6 PG (27.0-31.0) Mean Corpuscular Hemoglobin Concent 35.2 G/DL (32.0-36.0) 35.4 G/DL (32.0-36.0) Red Cell Distribution Width 12.2 % (11.6-14.8) 12.1 % (11.6-14.8) Platelet Count 221 K/UL (150-450) 200 K/UL (150-450) Mean Platelet Volume 4.9 FL (6.5-10.1) L 5.9 FL (6.5-10.1) L Neutrophils (%) (Auto) 82.3 % (45.0-75.0) H 81.4 % (45.0-75.0) H Lymphocytes (%) (Auto) 8.0 % (20.0-45.0) L 9.0 % (20.0-45.0) L Monocytes (%) (Auto) 7.7 % (1.0-10.0) 8.3 % (1.0-10.0) Eosinophils (%) (Auto) 0.8 % (0.0-3.0) 0.8 % (0.0-3.0) Basophils (%) (Auto) 1.2 % (0.0-2.0) 0.5 % (0.0-2.0) Sodium Level 131 MMOL/L (136-145) L Potassium Level 2.9 MMOL/L (3.5-5.1) L Chloride Level 96 MMOL/L (98-107) L Carbon Dioxide Level 30 MMOL/L (21-32) Anion Gap 5 mmol/L (5-15) Blood Urea Nitrogen 43 mg/dL (7-18) H Creatinine 1.4 MG/DL (0.55-1.30) H Estimat Glomerular Filtration Rate mL/min (>60) Glucose Level 101 MG/DL (74-106) Calcium Level 7.9 MG/DL (8.5-10.1) L Phosphorus Level 3.3 MG/DL (2.5-4.9) Magnesium Level 2.0 MG/DL (1.8-2.4) Plan Problems: (1) Decubitus skin ulcer Assessment & Plan: Hyperpigmentation from previous pressure injury noted to sacrum with areas of dry brown skin pigmentation without erythema or induration.Non-tender when palpated.Erythema with excoriation noted to perianal area. Brown skin pigmentations noted to R and L ischial areas..Erythema noted to urinary meatus.Pt complained of burning .Moisture Barrier applied. Both heels are soft but blanchable. Pt denied pain or tenderness when each heel minimally palpated. No other areas of skin concerns noted. Educated pt on wound prevention.Encouraged to frequently shift and off-lift buttocks while repositioning. Encouraged to keep heels off-loaded with pillow. Tx.Plan: Apply Moisture Barrier to Vielka-Anal area. Scrotum and both ischail areas with each Incontinence care. Apply Moisture Barrier to Sacrum. Cover with Optifoam drsg. Change every 3 days and prn. Apply Cavilon Skin Barrier to both heels. Cover each heel with Optifoam drsg. Change every 7 days and prn. Encourage and assist as needed with repositioning at least every 2 hours or as tolerated. Off-load heels with pillow. (2) UTI (urinary tract infection) (3) Hyperkalemia (4) Renal insufficiency (5) Occult blood in stools (6) Duodenal ulcer Assessment & Plan: on PPI next EGD as per GI (7) Dehydration (8) Infection (9) Duodenitis (10) Coffee ground emesis (11) G tube feedings (12) Sepsis due to pneumonia (13) aspiration p (14) Anthony Licea February 06, 2019 16:01
--- NOTE | 2019-02-06 19:02 | NUR ---
HAND-OFF: Report given to Ms Wagner RN Patient resting comfortably no sign of distress, kept clean dry and comfortable emiliano de los santos
--- NOTE | 2019-02-06 19:03 | NUR ---
NURSE NOTES: Received patient in bed, awake,oriented x2. no sign of respiratory distress noted. on NPO g-tube clamped. on protonix drip at 25m/h and IVF on going, incontinent of urine and bowel, on fall and pressure ulcer prevention, turn q2h for comfort and good circulation. , bed is locked and is in the lowest position, call light within easy reach. bed alarm on. will continue to monitor
[2019-02-06 20:00] VITALS: BP 125/52
[2019-02-06] MEDS: Iron Sucrose 100 MG in NS 55 ML IV SCH (20:50)
[2019-02-07 00:06] VITALS: BP 125/49
[2019-02-07] MEDS: Pantoprazole 80 MG in NS 250 ML IV SCH ×2 (04:46→17:50)
[2019-02-07] MEDS: NovoLOG Insulin Flexpen SUBQ SCH ×5 (05:42→23:44)
--- NOTE | 2019-02-07 07:36 | NUR ---
HAND-OFF: Report given to JORGE Knight.
--- NOTE | 2019-02-07 07:47 | NUR ---
NURSE NOTES: Patient alert x2, on room air, no sign of distress and shortness of breath; NPO, G-tube in place, condom cath drains urine well; IV Left-AC Protonix running at 25cc; bed at lowest position, breaks engaged, side rails up x2; call light within reach, will keep monitoring.
[2019-02-07 08:00] VITALS: BP 126/62
[2019-02-07] MEDS: Heparin 5000 units/ml inj SUBQ SCH ×2 (08:09→21:00)
--- NOTE | 2019-02-07 10:16 | General Progress Note ---
Assessment/Plan Status: unchanged Assessment/Plan: Now Hyponatremia Hypokalemia - see orders. Lab results pending. Severe Iron Def. For EGD. See Orders. ID called for ESBL UTI. Rx per ID. Subjective Allergies: Coded Allergies: No Known Allergies (Verified , 12/28/06) Subjective Confused. Vomited coffee ground. Objective Last 24 Hour Vital Signs Date Time Temp Pulse Resp B/P (MAP) Pulse Ox O2 Delivery O2 Flow Rate FiO2 02/07/19 09:00 Room Air 02/07/19 08:08 88 126/62 02/07/19 08:00 98.1 88 16 126/62 (83) 95 02/07/19 00:06 98.9 81 18 125/49 (74) 97 02/06/19 21:44 Room Air 02/06/19 21:00 Room Air 02/06/19 20:00 96.8 76 19 125/52 (76) 99 02/06/19 15:55 98.0 72 18 115/50 (71) 98 02/06/19 12:00 97.2 75 18 129/61 (83) 97 Intake and Output 02/06/19 02/07/19 19:00 07:00 Intake Total 1110 ml 980 ml Balance 1110 ml 980 ml IV Total 1110 ml 980 ml # Voids 3 4 # Bowel Movements 4 2 Height (Feet): 5 Height (Inches): 5.00 Weight (Pounds): 124 Objective CV RR Lungs CTA Abd SNT BS + E No CCe Ann López MD February 07, 2019 10:16
--- NOTE | 2019-02-07 10:44 | Infectious Diseases Prog Note ---
"Assessment/Plan Assessment/Plan 1. proteus | klebsiella UTI treated 2. diabetes mellitus 3. hypertension 4. CVA 5. leucocytosis 6. chronic kidney disease 7. hyponatremia 8. Hypokalemia P 1. observe off antibiotic Subjective ROS Limited/Unobtainable: Yes Allergies: Coded Allergies: No Known Allergies (Verified , 12/28/06) Objective Vital Signs Last 24 Hour Vital Signs Date Time Temp Pulse Resp B/P (MAP) Pulse Ox O2 Delivery O2 Flow Rate FiO2 02/07/19 09:00 Room Air 02/07/19 08:08 88 126/62 02/07/19 08:00 98.1 88 16 126/62 (83) 95 02/07/19 00:06 98.9 81 18 125/49 (74) 97 02/06/19 21:44 Room Air 02/06/19 21:00 Room Air 02/06/19 20:00 96.8 76 19 125/52 (76) 99 02/06/19 15:55 98.0 72 18 115/50 (71) 98 02/06/19 12:00 97.2 75 18 129/61 (83) 97 Height (Feet): 5 Height (Inches): 5.00 Weight (Pounds): 124 General Appearance: no acute distress HEENT: mucous membranes moist Respiratory/Chest: lungs clear Cardiovascular: normal rate Abdomen: soft, non tender Extremities: no edema Neurologic/Psychiatric: other - sleeping Current Medications Medications (Trade) Dose Ordered Sig/Jarrod Route PRN Reason Start Time Stop Time Status Last Admin Dose Admin Amlodipine Besylate (Norvasc) 10 mg DAILY ORAL 02/03/19 09:15 03/05/19 09:14 02/07/19 08:08 Dextrose (Dextrose 50%) 25 ml Q30M PRN IV Hypoglycemia 01/27/19 19:00 02/26/19 18:59 Dextrose (Dextrose 50%) 50 ml Q30M PRN IV Hypoglycemia 01/27/19 19:00 02/26/19 18:59 Epoetin Juwan (Epoetin Juwan(ESRD on dialysis)) 8,000 unit MON-WED-FRI SUBQ 02/05/19 21:00 03/07/19 20:59 02/05/19 20:54 Gemfibrozil (Lopid) 600 mg TWICE A DAY GT 02/04/19 18:00 03/06/19 17:59 02/07/19 08:08 Heparin Sodium (Porcine) (Heparin 5000 units/ml) 5,000 units EVERY 12 HOURS SUBQ 01/27/19 21:00 02/26/19 20:59 02/07/19 08:09 Insulin Aspart (NovoLOG) Q6HR SUBQ 02/04/19 00:00 02/26/19 20:59 02/05/19 11:23 Iron Sucrose 100 mg/Sodium Chloride 60 ml @ 240 mls/hr BEDTIME IV 02/05/19 21:00 02/09/19 21:14 02/06/19 20:50 Metoclopramide HCl (Reglan) 5 mg Q6H PRN IVP Nausea & Vomiting 02/04/19 15:14 03/06/19 15:13 Ondansetron HCl (Zofran) 4 mg Q6H PRN IVP Nausea & Vomiting 02/03/19 09:15 03/05/19 09:14 02/05/19 14:45 Pantoprazole 80 mg/Sodium Chloride 250 ml @ 25 mls/hr Q10H IV 02/05/19 18:00 03/07/19 17:59 02/07/19 04:46 Potassium Chloride 30 meq/ Sodium Chloride 1,015 ml @ 70 mls/hr [id number] IV 02/06/19 11:45 03/08/19 11:44 02/07/19 02:15 Gerald Conway MD February 07, 2019 10:44"
[2019-02-07 12:00] VITALS: BP 143/54
--- NOTE | 2019-02-07 14:58 | NUR ---
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 ESBL UTI VS: BP 143/54, P 85, T 98.1, RR 20, SpO2 100 NO LABS TODAY IS:D5W 25mL IV IRON SUCROSE/NS 240mls IV LOPID 600mg NORVASC 10mg HEPARIN SUBQ NOVOLOG SUBQ MED/SURG STATUS
[2019-02-07 16:00] VITALS: BP 131/64
--- NOTE | 2019-02-07 18:23 | Surgery Progress Note ---
Surgery Progress Note Subjective Symptoms: improved, tolerating diet, passing flatus Additional Comments no acute events. Objective Last 24 Hour Vital Signs Date Time Temp Pulse Resp B/P (MAP) Pulse Ox O2 Delivery O2 Flow Rate FiO2 02/07/19 16:00 98.2 84 17 131/64 (86) 100 02/07/19 12:00 98.1 85 20 143/54 (83) 100 02/07/19 09:00 Room Air 02/07/19 08:08 88 126/62 02/07/19 08:00 98.1 88 16 126/62 (83) 95 02/07/19 00:06 98.9 81 18 125/49 (74) 97 02/06/19 21:44 Room Air 02/06/19 21:00 Room Air 02/06/19 20:00 96.8 76 19 125/52 (76) 99 I&O Intake and Output 02/06/19 02/07/19 18:59 06:59 Intake Total 1140 ml 1050 ml Balance 1140 ml 1050 ml IV Total 1140 ml 1050 ml # Voids 3 4 # Bowel Movements 4 2 Dressing: saturated Wound: other Drains: other Cardiovascular: RSR Respiratory: decreased breath sounds Abdomen: soft, non-tender, present bowel sounds, non-distended Extremities: no tenderness, no cyanosis Plan Problems: (1) Decubitus skin ulcer Assessment & Plan: Hyperpigmentation from previous pressure injury noted to sacrum with areas of dry brown skin pigmentation without erythema or induration.Non-tender when palpated.Erythema with excoriation noted to perianal area. Brown skin pigmentations noted to R and L ischial areas..Erythema noted to urinary meatus.Pt complained of burning .Moisture Barrier applied. Both heels are soft but blanchable. Pt denied pain or tenderness when each heel minimally palpated. No other areas of skin concerns noted. Educated pt on wound prevention.Encouraged to frequently shift and off-lift buttocks while repositioning. Encouraged to keep heels off-loaded with pillow. Tx.Plan: Apply Moisture Barrier to Vielka-Anal area. Scrotum and both ischail areas with each Incontinence care. Apply Moisture Barrier to Sacrum. Cover with Optifoam drsg. Change every 3 days and prn. Apply Cavilon Skin Barrier to both heels. Cover each heel with Optifoam drsg. Change every 7 days and prn. Encourage and assist as needed with repositioning at least every 2 hours or as tolerated. Off-load heels with pillow. (2) UTI (urinary tract infection) (3) Hyperkalemia (4) Renal insufficiency (5) Occult blood in stools (6) Duodenal ulcer Assessment & Plan: on PPI next EGD as per GI (7) Dehydration (8) Infection (9) Duodenitis (10) Coffee ground emesis (11) G tube feedings (12) Sepsis due to pneumonia (13) aspiration p (14) Anthony Licea February 07, 2019 18:23
--- NOTE | 2019-02-07 19:17 | NUR ---
HAND-OFF: Report given to JORGE Wagner.
--- NOTE | 2019-02-07 19:18 | NUR ---
NURSE NOTES: Received patient in bed, awake,oriented x2. no sign of respiratory distress noted. G tube clamped, in place. NPO. Protonix drip running at 25m/h and IVF c 30 mEq KCL running at 70 ml/h. Pt is incontinent of bowel and bladder. Cleaned patient as he was wet to prevent further skin damage. On P200 mattress, pressure ulcer prevention, turning q2h for comfort and good circulation. , bed is locked and is in the lowest position, call light within reach. bed alarm on. will continue to monitor
[2019-02-07 20:00] VITALS: BP 126/58
[2019-02-07] MEDS: Iron Sucrose 100 MG in NS 55 ML IV SCH (21:00)
--- NOTE | 2019-02-07 22:56 | Physician Query ---
Clarification is required for compliance, coding accuracy, and to reflect severity of illness for this patient Dear Dr. Velazquez Date: 02/07/2019 CDS: Muriel Barrera Please click EDIT and place X in appropriate box A diagnosis of Decubitus Ulcer of Sacrum has been identified in this patient. Please clarify the stage of the ulcer for greater specificity. [ ] Stage I (Non-blanching erythema of intact skin, the heralding lesion of skin ulceration, is present. In individuals with darker skin, discoloration, warmth, edema, induration, or hardness may be indicators.) [ XX ] Stage II (There is partial thickness skin loss involving epidermis, dermis, or both. The lesion is superficial and presents clinically as an abrasion, blister, or shallow center.) [ ] Stage III (Full thickness skin loss involving damage or necrosis of subcutaneous tissue that may extend down to, but not through the underlying fascia exists. The sore presents clinically as a deep crater with or without undermining of adjacent tissue.) [ ] Stage IV (Full thickness skin loss with extensive destruction, tissue necrosis, or damage to muscle, bone, or supporting structures is present.) [ ] Unstageable Present on Admission: [ XX ] Yes [ ] No [ ] Clinically Undetermined Physician signature Date Please also document in your Progress Notes and/or Discharge Summary and indicate if the condition was present on admission. MTDD
--- NOTE | 2019-02-07 23:01 | Physician Query ---
Clarification is required for compliance, coding accuracy, and to reflect severity of illness for this patient Dear Dr. López Date: 02/07/2019 CDS: Muriel Barrera Please click EDIT and place X in appropriate box "Urosepsis" is documented in H&P. WBC: 13.1 RR: 20 Rx: IV Levofloxacin Please clarify if you mean: [ ] Urinary Tract Infection (UTI) only [ ] Sepsis due to UTI [ ] Septicemia due to UTI [ ] Other: Present on Admission: [ ] Yes [ ] No [ ] Clinically Undetermined Physician signature Date Please also document in your Progress Notes and/or Discharge Summary and indicate if the condition was present on admission. ASYAD
--- NOTE | 2019-02-07 23:51 | NUR ---
NURSE NOTES: Pt blood sugar was 66 mg/dl. Per protocol, gave dextrose 25 ml IVP. Will recheck BG in 15 minutes.
--- NOTE | 2019-02-07 23:52 | NUR ---
NURSE NOTES: Although pt is hypoglycemic, he is asymptomatic. He is NPO for a procedure in the morning. Will continue to monitor
[2019-02-08] VITALS: BP 126/47
[2019-02-08 04:00] VITALS: BP 125/59
[2019-02-08 05:03] LABS: HEMATOCRIT 21.1 % (42.0-52.0); MEAN CORPUSCULAR VOLUME 91 FL (80-99); PLATELET COUNT 196 K/UL (150-450); RED BLOOD COUNT 2.32 M/UL (4.70-6.10); RED CELL DISTRIBUTION WIDTH 14.1 % (11.6-14.8)
[2019-02-08 05:05] LABS: INR 1.2 (0.9-1.1)
[2019-02-08] MEDS: Pantoprazole 80 MG in NS 250 ML IV SCH ×2 (05:05→12:52)
[2019-02-08 05:13] LABS: ANION GAP 14 mmol/L (5-15); BLOOD UREA NITROGEN 25 mg/dL (7-18); CALCIUM 7.7 MG/DL (8.5-10.1); CARBON DIOXIDE 20 MMOL/L (21-32); CHLORIDE 105 MMOL/L (98-107); CREATININE 1.4 MG/DL (0.55-1.30); POTASSIUM 3.6 MMOL/L (3.5-5.1); SODIUM 139 MMOL/L (136-145)
--- NOTE | 2019-02-08 05:45 | NUR ---
NURSE NOTES: Pt was hypoglycemic at 67 mg/dl. Gave Dextrose 50, 25 mL and rechecked BG. BG currently is at 137 mg/dL. Will continue to monitor and notify .
--- NOTE | 2019-02-08 05:49 | NUR ---
NURSE NOTES: Paged Dr López to report critical lab of hemoglobin at 7.0. Also to report low blood glucose. Will await call back.
[2019-02-08] MEDS: NovoLOG Insulin Flexpen SUBQ SCH ×3 (06:00→17:30)
--- NOTE | 2019-02-08 07:49 | NUR ---
HAND-OFF: Report given to JORGE Cruz. Endorsed re low hgb and hct and scheduled procedure to contact Todd.
[2019-02-08 08:00] VITALS: BP 145/54
--- NOTE | 2019-02-08 08:06 | NUR ---
NURSE NOTES: Patient received resting in bed. Verbalizes needs. Breathing unlabored on room air, denies pain or SOB at this time. Graciela CHEMISTRY TECHNOLOGIST notified of patient's low hgb this AM impending EGD today. Blood orders received, will administer per protocol. G-tube clamped per NPO status. IV on left arm patent and intact, fluids running at 70cc/hr. Bed locked in lowest position. HOB elevated for aspiration precaution. Call light placed within reach, will continue to monitor.
--- NOTE | 2019-02-08 08:21 | General Progress Note ---
Assessment/Plan Status: unchanged Assessment/Plan: Eunatremic. Eukalemic. Severe Iron Def. For EGD. See Orders. Severe Anemia Hct 21. Transfuse + on ALEAH. ID called for ESBL UTI. Rx per ID. Subjective Allergies: Coded Allergies: No Known Allergies (Verified , 12/28/06) Subjective Confused. Vomited coffee ground. Objective Last 24 Hour Vital Signs Date Time Temp Pulse Resp B/P (MAP) Pulse Ox O2 Delivery O2 Flow Rate FiO2 02/08/19 08:00 97.8 87 18 145/54 (84) 96 02/08/19 04:00 98.4 78 18 125/59 (81) 100 02/08/19 00:00 98.0 86 18 126/47 (73) 100 02/07/19 20:58 Room Air 02/07/19 20:00 98.7 85 19 126/58 (80) 100 02/07/19 16:00 98.2 84 17 131/64 (86) 100 02/07/19 12:00 98.1 85 20 143/54 (83) 100 02/07/19 09:00 Room Air Intake and Output 02/07/19 02/08/19 19:00 07:00 Intake Total 925 ml Balance 925 ml IV Total 925 ml # Voids 6 # Bowel Movements 1 2 Laboratory Tests 02/08/19 04:20: White Blood Count 12.0H, Red Blood Count 2.32L, Hemoglobin 7.0L, Hematocrit 21.1L, Mean Corpuscular Volume 91, Mean Corpuscular Hemoglobin 30.3, Mean Corpuscular Hemoglobin Concent 33.3, Red Cell Distribution Width 14.1, Platelet Count 196, Mean Platelet Volume 5.8L, Neutrophils (%) (Auto) , Lymphocytes (%) ( Auto) , Monocytes (%) (Auto) , Eosinophils (%) (Auto) , Basophils (%) (Auto) , Neutrophils % (Manual) [Pending], Lymphocytes % (Manual) [Pending], Platelet Estimate [Pending], Platelet Morphology [Pending], Prothrombin Time 12.1H, Prothromb Time International Ratio 1.2H, Activated Partial Thromboplast Time 42H , Sodium Level 139, Potassium Level 3.6, Chloride Level 105, Carbon Dioxide Level 20L, Anion Gap 14, Blood Urea Nitrogen 25H, Creatinine 1.4H, Estimat Glomerular Filtration Rate , Glucose Level 59L, Calcium Level 7.7L Height (Feet): 5 Height (Inches): 5.00 Weight (Pounds): 124 Objective CV RR Lungs CTA Abd SNT BS + E No CCe Ann López MD February 08, 2019 08:21
[2019-02-08] MEDS: Heparin 5000 units/ml inj SUBQ SCH ×2 (08:41→22:00)
[2019-02-08 12:00] VITALS: BP 131/60
--- NOTE | 2019-02-08 13:07 | GI Progress Note ---
Assessment/Plan Problems: (1) Anemia ICD Codes: D64.9 - Anemia, unspecified SNOMED: 111599476 (2) DM (3) G tube feedings ICD Codes: Z93.1 - Gastrostomy status SNOMED: 437822124, 399970165 (4) Duodenal ulcer ICD Codes: K26.9 - Duodenal ulcer, unspecified as acute or chronic, without hemorrhage or perforation SNOMED: 79634600 (5) Dehydration ICD Codes: E86.0 - Dehydration SNOMED: 80376731 Status: unchanged Status Narrative Discussed with Dr. Brooks. Assessment/Plan KUB negative EGD scheduled tomorrow to evaluate anemia ok to start GTFs, NPO day prior procedure add reglan add lopid prn transfusions ppi gtt repeat labs in am will follow with additional recs post procedure The patient was seen and examined at bedside and all new and available data was reviewed in the patients chart. I agree with the above findings, impression and plan. (Patient seen earlier today. Signature stamp does not reflect patient encounter time.). - Kentrell Brooks MD Subjective Subjective limited Objective Last 24 Hour Vital Signs Date Time Temp Pulse Resp B/P (MAP) Pulse Ox O2 Delivery O2 Flow Rate FiO2 02/08/19 12:00 98.8 82 18 131/60 (83) 95 02/08/19 09:00 Room Air 02/08/19 08:41 87 145/54 02/08/19 08:00 97.8 87 18 145/54 (84) 96 02/08/19 04:00 98.4 78 18 125/59 (81) 100 02/08/19 00:00 98.0 86 18 126/47 (73) 100 02/07/19 20:58 Room Air 02/07/19 20:00 98.7 85 19 126/58 (80) 100 02/07/19 16:00 98.2 84 17 131/64 (86) 100 Intake and Output 02/07/19 02/08/19 19:00 07:00 Intake Total 925 ml Balance 925 ml IV Total 925 ml # Voids 6 # Bowel Movements 1 2 Laboratory Tests Test 02/08/19 04:20 White Blood Count 12.0 K/UL (4.8-10.8) H Red Blood Count 2.32 M/UL (4.70-6.10) L Hemoglobin 7.0 G/DL (14.2-18.0) L Hematocrit 21.1 % (42.0-52.0) L Mean Corpuscular Volume 91 FL (80-99) Mean Corpuscular Hemoglobin 30.3 PG (27.0-31.0) Mean Corpuscular Hemoglobin Concent 33.3 G/DL (32.0-36.0) Red Cell Distribution Width 14.1 % (11.6-14.8) Platelet Count 196 K/UL (150-450) Mean Platelet Volume 5.8 FL (6.5-10.1) L Neutrophils (%) (Auto) % (45.0-75.0) Lymphocytes (%) (Auto) % (20.0-45.0) Monocytes (%) (Auto) % (1.0-10.0) Eosinophils (%) (Auto) % (0.0-3.0) Basophils (%) (Auto) % (0.0-2.0) Differential Total Cells Counted 100 Neutrophils % (Manual) 72 % (45-75) Lymphocytes % (Manual) 13 % (20-45) L Monocytes % (Manual) 11 % (1-10) H Eosinophils % (Manual) 4 % (0-3) H Basophils % (Manual) 0 % (0-2) Band Neutrophils 0 % (0-8) Platelet Estimate Adequate Platelet Morphology Normal Anisocytosis 1+ Prothrombin Time 12.1 SEC (9.30-11.50) H Prothromb Time International Ratio 1.2 (0.9-1.1) H Activated Partial Thromboplast Time 42 SEC (23-33) H Sodium Level 139 MMOL/L (136-145) Potassium Level 3.6 MMOL/L (3.5-5.1) Chloride Level 105 MMOL/L (98-107) Carbon Dioxide Level 20 MMOL/L (21-32) L Anion Gap 14 mmol/L (5-15) Blood Urea Nitrogen 25 mg/dL (7-18) H Creatinine 1.4 MG/DL (0.55-1.30) H Estimat Glomerular Filtration Rate mL/min (>60) Glucose Level 59 MG/DL (74-106) L Calcium Level 7.7 MG/DL (8.5-10.1) L Height (Feet): 5 Height (Inches): 5.00 Weight (Pounds): 124 General Appearance: no apparent distress Cardiovascular: normal rate Respiratory/Chest: normal breath sounds, no respiratory distress Abdominal Exam: normal bowel sounds, non tender, soft, GT site - c/d/i Extremities: non-tender Supa Owens NP February 08, 2019 13:07
--- NOTE | 2019-02-08 14:16 | Infectious Diseases Prog Note ---
"Assessment/Plan Assessment/Plan 1. proteus | klebsiella UTI treated 2. diabetes mellitus 3. hypertension 4. CVA 5. leucocytosis 6. chronic kidney disease 7. Anemia 8. Hypokalemia corrected P 1. observe off antibiotic 2. Waiting for EGD Subjective ROS Limited/Unobtainable: Yes Allergies: Coded Allergies: No Known Allergies (Verified , 12/28/06) Objective Vital Signs Last 24 Hour Vital Signs Date Time Temp Pulse Resp B/P (MAP) Pulse Ox O2 Delivery O2 Flow Rate FiO2 02/08/19 12:00 98.8 82 18 131/60 (83) 95 02/08/19 09:00 Room Air 02/08/19 08:41 87 145/54 02/08/19 08:00 97.8 87 18 145/54 (84) 96 02/08/19 04:00 98.4 78 18 125/59 (81) 100 02/08/19 00:00 98.0 86 18 126/47 (73) 100 02/07/19 20:58 Room Air 02/07/19 20:00 98.7 85 19 126/58 (80) 100 02/07/19 16:00 98.2 84 17 131/64 (86) 100 Height (Feet): 5 Height (Inches): 5.00 Weight (Pounds): 124 General Appearance: no acute distress HEENT: mucous membranes moist Respiratory/Chest: lungs clear Cardiovascular: normal rate Abdomen: soft, non tender Extremities: no edema Neurologic/Psychiatric: other - sleeping Laboratory Tests Test 02/08/19 04:20 White Blood Count 12.0 K/UL (4.8-10.8) H Red Blood Count 2.32 M/UL (4.70-6.10) L Hemoglobin 7.0 G/DL (14.2-18.0) L Hematocrit 21.1 % (42.0-52.0) L Mean Corpuscular Volume 91 FL (80-99) Mean Corpuscular Hemoglobin 30.3 PG (27.0-31.0) Mean Corpuscular Hemoglobin Concent 33.3 G/DL (32.0-36.0) Red Cell Distribution Width 14.1 % (11.6-14.8) Platelet Count 196 K/UL (150-450) Mean Platelet Volume 5.8 FL (6.5-10.1) L Neutrophils (%) (Auto) % (45.0-75.0) Lymphocytes (%) (Auto) % (20.0-45.0) Monocytes (%) (Auto) % (1.0-10.0) Eosinophils (%) (Auto) % (0.0-3.0) Basophils (%) (Auto) % (0.0-2.0) Differential Total Cells Counted 100 Neutrophils % (Manual) 72 % (45-75) Lymphocytes % (Manual) 13 % (20-45) L Monocytes % (Manual) 11 % (1-10) H Eosinophils % (Manual) 4 % (0-3) H Basophils % (Manual) 0 % (0-2) Band Neutrophils 0 % (0-8) Platelet Estimate Adequate Platelet Morphology Normal Anisocytosis 1+ Prothrombin Time 12.1 SEC (9.30-11.50) H Prothromb Time International Ratio 1.2 (0.9-1.1) H Activated Partial Thromboplast Time 42 SEC (23-33) H Sodium Level 139 MMOL/L (136-145) Potassium Level 3.6 MMOL/L (3.5-5.1) Chloride Level 105 MMOL/L (98-107) Carbon Dioxide Level 20 MMOL/L (21-32) L Anion Gap 14 mmol/L (5-15) Blood Urea Nitrogen 25 mg/dL (7-18) H Creatinine 1.4 MG/DL (0.55-1.30) H Estimat Glomerular Filtration Rate mL/min (>60) Glucose Level 59 MG/DL (74-106) L Calcium Level 7.7 MG/DL (8.5-10.1) L Current Medications Medications (Trade) Dose Ordered Sig/Jarrod Route PRN Reason Start Time Stop Time Status Last Admin Dose Admin Amlodipine Besylate (Norvasc) 10 mg DAILY ORAL 02/03/19 09:15 03/05/19 09:14 02/08/19 08:41 Dextrose (Dextrose 50%) 25 ml Q30M PRN IV Hypoglycemia 01/27/19 19:00 02/26/19 18:59 02/07/19 23:44 Dextrose (Dextrose 50%) 50 ml Q30M PRN IV Hypoglycemia 01/27/19 19:00 02/26/19 18:59 Dextrose/ Electrolytes 1,000 ml @ 75 mls/hr [id number] IV 02/08/19 14:00 03/10/19 13:59 Epoetin Juwan (Epoetin Juwan-EPBX(NON ESRD)) 8,000 unit FRI-FRI-FRI SUBQ 02/08/19 21:00 03/10/19 20:59 Gemfibrozil (Lopid) 600 mg TWICE A DAY GT 02/04/19 18:00 03/06/19 17:59 02/08/19 08:41 Heparin Sodium (Porcine) (Heparin 5000 units/ml) 5,000 units EVERY 12 HOURS SUBQ 01/27/19 21:00 02/26/19 20:59 02/07/19 21:00 Insulin Aspart (NovoLOG) Q6HR SUBQ 02/04/19 00:00 02/26/19 20:59 02/05/19 11:23 Iron Sucrose 100 mg/Sodium Chloride 60 ml @ 240 mls/hr BEDTIME IV 02/05/19 21:00 02/09/19 21:14 02/07/19 21:00 Metoclopramide HCl (Reglan) 5 mg Q6H PRN IVP Nausea & Vomiting 02/04/19 15:14 03/06/19 15:13 Ondansetron HCl (Zofran) 4 mg Q6H PRN IVP Nausea & Vomiting 02/03/19 09:15 03/05/19 09:14 02/05/19 14:45 Pantoprazole 80 mg/Sodium Chloride 250 ml @ 25 mls/hr Q10H IV 02/07/19 17:30 03/09/19 17:29 02/08/19 12:52 Gerald Conway MD February 08, 2019 14:15"
--- NOTE | 2019-02-08 15:33 | NUR ---
RD ASSESSMENT & RECOMMENDATIONS SEE CARE ACTIVITY FOR COMPLETE ASSESSMENT DAILY ESTIMATED NEEDS: Needs based on UnderweighT/ 49.5kg 30-35 kcals/kg 6251-5975 total kcals 1-1.5 g protein/kg 50-74 g total protein 25-30 mL/kg 7149-9799 total fluid mLs NUTRITION DIAGNOSIS: * Increased kcal and pro needs r/t underweight status as evidenced by pt @74% Rodney Body Weight, BMI underweight per guidelines. * Swallowing difficulty R/T dysphagia as evidenced by pt is PEG dep CURRENT TF: NPO ENTERAL NUTRITION RECOMMENDATIONS: Glucerna 1.2 @ 55ml/hr x 24 hrs to provide 1320ml, 1584kcal, 79g prot, 1063ml free water * MEDICALLY ABLE, RESUME TF * Rec Glucerna 1.2 @ 15ml/hr x 6 hrs, advance 10ml q 4-6 hrs as tolerated to goal rate. * HOB over 30 degrees/ water flush per MD ADDITIONAL RECOMMENDATIONS: * Per SNF, HT: 5'7", WT: 109#. * CALIBRATED BEDSCALE WT (w/added P200 mattress), weekly wts * Monitor lytes, replete as needed (K critically low) * Monitor ability to feed, NPO status- s/p coffee ground emesis -pending EGD . .
--- NOTE | 2019-02-08 15:58 | Surgery Progress Note ---
Surgery Progress Note Subjective Additional Comments no acute events. comfortable. stable Objective Last 24 Hour Vital Signs Date Time Temp Pulse Resp B/P (MAP) Pulse Ox O2 Delivery O2 Flow Rate FiO2 02/08/19 12:00 98.8 82 18 131/60 (83) 95 02/08/19 09:00 Room Air 02/08/19 08:41 87 145/54 02/08/19 08:00 97.8 87 18 145/54 (84) 96 02/08/19 04:00 98.4 78 18 125/59 (81) 100 02/08/19 00:00 98.0 86 18 126/47 (73) 100 02/07/19 20:58 Room Air 02/07/19 20:00 98.7 85 19 126/58 (80) 100 02/07/19 16:00 98.2 84 17 131/64 (86) 100 I&O Intake and Output 02/07/19 02/08/19 19:00 07:00 Intake Total 925 ml Balance 925 ml IV Total 925 ml # Voids 6 # Bowel Movements 1 2 Dressing: dry Wound: clean Drains: other Cardiovascular: RSR Respiratory: clear Abdomen: soft, present bowel sounds, non-distended Extremities: no tenderness, no cyanosis Laboratory Tests Test 02/08/19 04:20 White Blood Count 12.0 K/UL (4.8-10.8) H Red Blood Count 2.32 M/UL (4.70-6.10) L Hemoglobin 7.0 G/DL (14.2-18.0) L Hematocrit 21.1 % (42.0-52.0) L Mean Corpuscular Volume 91 FL (80-99) Mean Corpuscular Hemoglobin 30.3 PG (27.0-31.0) Mean Corpuscular Hemoglobin Concent 33.3 G/DL (32.0-36.0) Red Cell Distribution Width 14.1 % (11.6-14.8) Platelet Count 196 K/UL (150-450) Mean Platelet Volume 5.8 FL (6.5-10.1) L Neutrophils (%) (Auto) % (45.0-75.0) Lymphocytes (%) (Auto) % (20.0-45.0) Monocytes (%) (Auto) % (1.0-10.0) Eosinophils (%) (Auto) % (0.0-3.0) Basophils (%) (Auto) % (0.0-2.0) Differential Total Cells Counted 100 Neutrophils % (Manual) 72 % (45-75) Lymphocytes % (Manual) 13 % (20-45) L Monocytes % (Manual) 11 % (1-10) H Eosinophils % (Manual) 4 % (0-3) H Basophils % (Manual) 0 % (0-2) Band Neutrophils 0 % (0-8) Platelet Estimate Adequate Platelet Morphology Normal Anisocytosis 1+ Prothrombin Time 12.1 SEC (9.30-11.50) H Prothromb Time International Ratio 1.2 (0.9-1.1) H Activated Partial Thromboplast Time 42 SEC (23-33) H Sodium Level 139 MMOL/L (136-145) Potassium Level 3.6 MMOL/L (3.5-5.1) Chloride Level 105 MMOL/L (98-107) Carbon Dioxide Level 20 MMOL/L (21-32) L Anion Gap 14 mmol/L (5-15) Blood Urea Nitrogen 25 mg/dL (7-18) H Creatinine 1.4 MG/DL (0.55-1.30) H Estimat Glomerular Filtration Rate mL/min (>60) Glucose Level 59 MG/DL (74-106) L Calcium Level 7.7 MG/DL (8.5-10.1) L Plan Problems: (1) Decubitus skin ulcer Assessment & Plan: Hyperpigmentation from previous pressure injury noted to sacrum with areas of dry brown skin pigmentation without erythema or induration.Non-tender when palpated.Erythema with excoriation noted to perianal area. Brown skin pigmentations noted to R and L ischial areas..Erythema noted to urinary meatus.Pt complained of burning .Moisture Barrier applied. Both heels are soft but blanchable. Pt denied pain or tenderness when each heel minimally palpated. No other areas of skin concerns noted. Educated pt on wound prevention.Encouraged to frequently shift and off-lift buttocks while repositioning. Encouraged to keep heels off-loaded with pillow. Tx.Plan: Apply Moisture Barrier to Vielka-Anal area. Scrotum and both ischail areas with each Incontinence care. Apply Moisture Barrier to Sacrum. Cover with Optifoam drsg. Change every 3 days and prn. Apply Cavilon Skin Barrier to both heels. Cover each heel with Optifoam drsg. Change every 7 days and prn. Encourage and assist as needed with repositioning at least every 2 hours or as tolerated. Off-load heels with pillow. (2) UTI (urinary tract infection) (3) Hyperkalemia (4) Renal insufficiency (5) Occult blood in stools (6) Duodenal ulcer Assessment & Plan: on PPI next EGD as per GI (7) Dehydration (8) Infection (9) Duodenitis (10) Coffee ground emesis (11) G tube feedings (12) Sepsis due to pneumonia (13) aspiration p (14) Anthony Licea February 08, 2019 15:58
[2019-02-08 16:00] VITALS: BP 140/61
--- NOTE | 2019-02-08 19:33 | NUR ---
HAND-OFF: Report given to Raza PATEL.
--- NOTE | 2019-02-08 19:48 | NUR ---
NURSE NOTES: Pt is in bed, awake and verbal. No acute distress noted. Pt is currently NPO for EGD tomorrow. 1 unit of PRBC was given during last shift per outgoing RN Nancy. Bed locked low in position,side rails up and call light within reach. Bed alarm on. Fall precaution in place.
[2019-02-08 20:00] VITALS: BP 139/66
[2019-02-08] MEDS: Epoetin Alfa-EPBX (NON ESRD)4000 units/ml vial SUBQ SCH (21:59)
[2019-02-08] MEDS: Iron Sucrose 100 MG in NS 55 ML IV SCH (22:00)
[2019-02-09] VITALS (17 sets, daily range): BP systolic 122–153; BP diastolic 52–67
[2019-02-09] MEDS: Pantoprazole 80 MG in NS 250 ML IV SCH ×2 (01:34→11:22)
--- NOTE | 2019-02-09 02:30 | NUR ---
NURSE NOTES: Pt had a BM. Pt was cleaned and turned. Bed linen changed. G-tube in place. IV site relocated to right wrist 24G. Blood sugar 86. Pt is NPO for EGD. Pt will be monitored.
[2019-02-09] MEDS: NovoLOG Insulin Flexpen SUBQ SCH ×5 (06:00→23:39)
[2019-02-09 06:45] LABS: BASOPHILS % (AUTO) 1.8 % (0.0-2.0); EOSINOPHILS % (AUTO) 2.8 % (0.0-3.0); HEMATOCRIT 27.4 % (42.0-52.0); HEMOGLOBIN 9.4 G/DL (14.2-18.0); INR 1.2 (0.9-1.1); MEAN CORPUSCULAR VOLUME 89 FL (80-99); MONOCYTES % (AUTO) 9.6 % (1.0-10.0); NEUTROPHILS % (AUTO) 77.6 % (45.0-75.0); PLATELET COUNT 239 K/UL (150-450); RED BLOOD COUNT 3.08 M/UL (4.70-6.10); RED CELL DISTRIBUTION WIDTH 13.6 % (11.6-14.8); WHITE BLOOD COUNT 11.8 K/UL (4.8-10.8)
[2019-02-09 06:51] LABS: ANION GAP 11 mmol/L (5-15); BLOOD UREA NITROGEN 18 mg/dL (7-18); CALCIUM 8.1 MG/DL (8.5-10.1); CARBON DIOXIDE 22 MMOL/L (21-32); CHLORIDE 108 MMOL/L (98-107); CREATININE 1.3 MG/DL (0.55-1.30); POTASSIUM 3.5 MMOL/L (3.5-5.1); SODIUM 141 MMOL/L (136-145)
--- NOTE | 2019-02-09 07:30 | NUR ---
HAND-OFF: Report given to JORGE Eaton.
--- NOTE | 2019-02-09 07:35 | NUR ---
NURSE NOTES: Received patient in bed, awake to name and shaking. Patient is verbally responsive but does not answer to some questions that RN asked. Not in respiratory/cardiac distress. No s/s of pain or discomfort per FLACC pain scale. On NPO for the procedure. GT intact, HOB elevated. IV intact and IVF running. No s/s of hypo/hyperglycemia.Will continue plan of care.
[2019-02-09] MEDS: Heparin 5000 units/ml inj SUBQ SCH ×2 (08:15→20:53)
--- NOTE | 2019-02-09 08:30 | Anethesia Preoperative Eval ---
Anesthesia Pre-op PMH/ROS General Date of Evaluation: February 09, 2019 Time of Evaluation: 08:27 Anesthesiologist: Amina ASA Score: ASA 4 Mallampati Score Class I : Soft palate, uvula, fauces, pillars visible Class II: Soft palate, uvula, fauces visible Class III: Soft palate, base of uvula visible Class IV: Only hard plate visible Mallampati Classification: Class III Surgeon: Todd Diagnosis: Anemia Surgical Procedure: EGD Anesthesia History: none Family History: no anesthesia problems Allergies: Coded Allergies: No Known Allergies (Verified , 12/28/06) Medications: see eMAR Patient NPO?: Yes Past Medical History Cardiovascular: Reports: HTN; Denies: CAD, [place], valve dz, arrhythmia, other Pulmonary: Denies: asthma, COPD, [place], other Gastrointestinal/Genitourinary: Reports: GERD, CRI; Denies: ESRD, other Neurologic/Psychiatric: Reports: dementia, CVA Endocrine: Reports: DM; Denies: hypothyroidism, steroids, other HEENT: Reports: cataract (L), cataract (R); Denies: glaucoma, [place] (L), [place] (R), other Hematology/Immune: Reports: anemia; Denies: DVT, bleeding disorder, other Musculoskeletal/Integumentary: Reports: OA; Denies: RA, DJD, DDD, edema, other PMH Narrative: as above PSxH Narrative: see H&P Anesthesia Pre-op Phys. Exam Physician Exam Last Vital Signs Date Time Temp Pulse Resp B/P (MAP) Pulse Ox O2 Delivery O2 Flow Rate FiO2 02/09/19 08:00 97.9 85 20 139/57 (84) 97 02/08/19 21:00 Room Air Constitutional: NAD Neurologic: other - unable to obtaine Cardiovascular: RRR, no M/R/G Respiratory: CTA Gastrointestinal: S/NT/ND Airway Exam Mallampati Score: Class III MO: limited Neck: stiff ROM: limited Teeth: missing Dentures: no upper, no lower Anesthesia Pre-op A/P Labs Hematology Test 02/09/19 05:57 White Blood Count 11.8 K/UL (4.8-10.8) H Red Blood Count 3.08 M/UL (4.70-6.10) L Hemoglobin 9.4 G/DL (14.2-18.0) #L Hematocrit 27.4 % (42.0-52.0) L Mean Corpuscular Volume 89 FL (80-99) Mean Corpuscular Hemoglobin 30.4 PG (27.0-31.0) Mean Corpuscular Hemoglobin Concent 34.3 G/DL (32.0-36.0) Red Cell Distribution Width 13.6 % (11.6-14.8) Platelet Count 239 K/UL (150-450) Mean Platelet Volume 5.7 FL (6.5-10.1) L Neutrophils (%) (Auto) 77.6 % (45.0-75.0) H Lymphocytes (%) (Auto) 8.0 % (20.0-45.0) L Monocytes (%) (Auto) 9.6 % (1.0-10.0) Eosinophils (%) (Auto) 2.8 % (0.0-3.0) Basophils (%) (Auto) 1.8 % (0.0-2.0) Coagulation Test 02/09/19 05:57 Prothrombin Time 12.1 SEC (9.30-11.50) H Prothromb Time International Ratio 1.2 (0.9-1.1) H Activated Partial Thromboplast Time 36 SEC (23-33) H Chemistry Test 02/09/19 05:57 Sodium Level 141 MMOL/L (136-145) Potassium Level 3.5 MMOL/L (3.5-5.1) Chloride Level 108 MMOL/L (98-107) H Carbon Dioxide Level 22 MMOL/L (21-32) Anion Gap 11 mmol/L (5-15) Blood Urea Nitrogen 18 mg/dL (7-18) Creatinine 1.3 MG/DL (0.55-1.30) Estimat Glomerular Filtration Rate mL/min (>60) Glucose Level 99 MG/DL (74-106) Calcium Level 8.1 MG/DL (8.5-10.1) L Risk Assessment & Plan Assessment: asa 4 Plan: MAC Status Change Before Surgery: Shamar Reardon MD February 09, 2019 08:30
--- NOTE | 2019-02-09 11:11 | Infectious Diseases Prog Note ---
"Assessment/Plan Assessment/Plan antibiotics : none A 1. proteus | klebsiella UTI s/p rx 2. diabetes mellitus 3. hypertension 4. CVA 5. leucocytosis resolved 6. renal failure improving P 1. continue off antibiotics 2. EGD planned Subjective ROS Limited/Unobtainable: Yes Allergies: Coded Allergies: No Known Allergies (Verified , 12/28/06) Objective Vital Signs Last 24 Hour Vital Signs Date Time Temp Pulse Resp B/P (MAP) Pulse Ox O2 Delivery O2 Flow Rate FiO2 02/09/19 09:00 Room Air 02/09/19 08:56 85 139/57 02/09/19 08:00 97.9 85 20 139/57 (84) 97 02/09/19 04:00 97.9 86 18 132/67 (88) 97 02/09/19 00:00 97.8 90 18 153/60 (91) 100 02/08/19 21:00 Room Air 02/08/19 20:00 98.0 88 18 139/66 (90) 100 02/08/19 16:00 98.5 85 19 140/61 (87) 96 02/08/19 12:00 98.8 82 18 131/60 (83) 95 Height (Feet): 5 Height (Inches): 5.00 Weight (Pounds): 124 Respiratory/Chest: lungs clear Cardiovascular: normal rate, regular rhythm, no gallop/murmur Abdomen: soft, non tender, other - GT Extremities: no edema Laboratory Tests Test 02/09/19 05:57 White Blood Count 11.8 K/UL (4.8-10.8) H Red Blood Count 3.08 M/UL (4.70-6.10) L Hemoglobin 9.4 G/DL (14.2-18.0) #L Hematocrit 27.4 % (42.0-52.0) L Mean Corpuscular Volume 89 FL (80-99) Mean Corpuscular Hemoglobin 30.4 PG (27.0-31.0) Mean Corpuscular Hemoglobin Concent 34.3 G/DL (32.0-36.0) Red Cell Distribution Width 13.6 % (11.6-14.8) Platelet Count 239 K/UL (150-450) Mean Platelet Volume 5.7 FL (6.5-10.1) L Neutrophils (%) (Auto) 77.6 % (45.0-75.0) H Lymphocytes (%) (Auto) 8.0 % (20.0-45.0) L Monocytes (%) (Auto) 9.6 % (1.0-10.0) Eosinophils (%) (Auto) 2.8 % (0.0-3.0) Basophils (%) (Auto) 1.8 % (0.0-2.0) Prothrombin Time 12.1 SEC (9.30-11.50) H Prothromb Time International Ratio 1.2 (0.9-1.1) H Activated Partial Thromboplast Time 36 SEC (23-33) H Sodium Level 141 MMOL/L (136-145) Potassium Level 3.5 MMOL/L (3.5-5.1) Chloride Level 108 MMOL/L (98-107) H Carbon Dioxide Level 22 MMOL/L (21-32) Anion Gap 11 mmol/L (5-15) Blood Urea Nitrogen 18 mg/dL (7-18) Creatinine 1.3 MG/DL (0.55-1.30) Estimat Glomerular Filtration Rate mL/min (>60) Glucose Level 99 MG/DL (74-106) Calcium Level 8.1 MG/DL (8.5-10.1) L Current Medications Medications (Trade) Dose Ordered Sig/Jarrod Route PRN Reason Start Time Stop Time Status Last Admin Dose Admin Amlodipine Besylate (Norvasc) 10 mg DAILY ORAL 02/03/19 09:15 03/05/19 09:14 02/09/19 08:56 Dextrose (Dextrose 50%) 25 ml Q30M PRN IV Hypoglycemia 01/27/19 19:00 02/26/19 18:59 02/07/19 23:44 Dextrose (Dextrose 50%) 50 ml Q30M PRN IV Hypoglycemia 01/27/19 19:00 02/26/19 18:59 Dextrose/ Electrolytes 1,000 ml @ 75 mls/hr [id number] IV 02/08/19 14:00 03/10/19 13:59 02/09/19 06:18 Epoetin Juwan (Epoetin Jwuan-EPBX(NON ESRD)) 8,000 unit FRI-FRI-FRI SUBQ 02/08/19 21:00 03/10/19 20:59 02/08/19 21:59 Gemfibrozil (Lopid) 600 mg TWICE A DAY GT 02/04/19 18:00 03/06/19 17:59 02/09/19 08:56 Heparin Sodium (Porcine) (Heparin 5000 units/ml) 5,000 units EVERY 12 HOURS SUBQ 01/27/19 21:00 02/26/19 20:59 02/08/19 22:00 Insulin Aspart (NovoLOG) Q6HR SUBQ 02/04/19 00:00 02/26/19 20:59 02/05/19 11:23 Iron Sucrose 100 mg/Sodium Chloride 60 ml @ 240 mls/hr BEDTIME IV 02/05/19 21:00 02/09/19 21:14 02/08/19 22:00 Metoclopramide HCl (Reglan) 5 mg Q6H PRN IVP Nausea & Vomiting 02/04/19 15:14 03/06/19 15:13 Ondansetron HCl (Zofran) 4 mg Q6H PRN IVP Nausea & Vomiting 02/03/19 09:15 03/05/19 09:14 02/05/19 14:45 Pantoprazole 80 mg/Sodium Chloride 250 ml @ 25 mls/hr Q10H IV 02/07/19 17:30 03/09/19 17:29 02/09/19 01:34 Len Sarkar MD February 09, 2019 11:11"
--- NOTE | 2019-02-09 11:46 | General Progress Note ---
Assessment/Plan Problem List: (1) Pancreatitis ICD Codes: K85.90 - Acute pancreatitis without necrosis or infection, unspecified SNOMED: 81415181 (2) Hypertriglyceridemia ICD Codes: E78.1 - Pure hyperglyceridemia SNOMED: 776651639 (3) Gastroparesis ICD Codes: K31.84 - Gastroparesis SNOMED: 143936568 (4) Decubitus skin ulcer ICD Codes: L89.90 - Pressure ulcer of unspecified site, unspecified stage SNOMED: 824553551 (5) DM (6) G tube feedings ICD Codes: Z93.1 - Gastrostomy status SNOMED: 937541723, 412869166 (7) Duodenitis ICD Codes: K29.80 - Duodenitis without bleeding SNOMED: 91188695 (8) Duodenal ulcer ICD Codes: K26.9 - Duodenal ulcer, unspecified as acute or chronic, without hemorrhage or perforation SNOMED: 49329122 (9) Renal insufficiency ICD Codes: N28.9 - Disorder of kidney and ureter, unspecified SNOMED: 542588474, 271228194 Status: unchanged Assessment/Plan: plan EGd for today Subjective ROS Limited/Unobtainable: No Allergies: Coded Allergies: No Known Allergies (Verified , 12/28/06) Objective Last 24 Hour Vital Signs Date Time Temp Pulse Resp B/P (MAP) Pulse Ox O2 Delivery O2 Flow Rate FiO2 02/09/19 09:00 Room Air 02/09/19 08:56 85 139/57 02/09/19 08:00 97.9 85 20 139/57 (84) 97 02/09/19 04:00 97.9 86 18 132/67 (88) 97 02/09/19 00:00 97.8 90 18 153/60 (91) 100 02/08/19 21:00 Room Air 02/08/19 20:00 98.0 88 18 139/66 (90) 100 02/08/19 16:00 98.5 85 19 140/61 (87) 96 02/08/19 12:00 98.8 82 18 131/60 (83) 95 Intake and Output 02/08/19 02/09/19 19:00 07:00 Intake Total 100 ml 1440 ml Balance 100 ml 1440 ml IV Total 100 ml 1440 ml # Voids 5 2 # Bowel Movements 1 2 Laboratory Tests 02/09/19 05:57: White Blood Count 11.8H, Red Blood Count 3.08L, Hemoglobin 9.4#L, Hematocrit 27.4L, Mean Corpuscular Volume 89, Mean Corpuscular Hemoglobin 30.4, Mean Corpuscular Hemoglobin Concent 34.3, Red Cell Distribution Width 13.6, Platelet Count 239, Mean Platelet Volume 5.7L, Neutrophils (%) (Auto) 77.6H, Lymphocytes (%) (Auto) 8.0L, Monocytes (%) (Auto) 9.6, Eosinophils (%) (Auto) 2.8, Basophils (%) (Auto) 1.8, Prothrombin Time 12.1H, Prothromb Time International Ratio 1.2H, Activated Partial Thromboplast Time 36H, Sodium Level 141, Potassium Level 3.5, Chloride Level 108H, Carbon Dioxide Level 22, Anion Gap 11 , Blood Urea Nitrogen 18, Creatinine 1.3, Estimat Glomerular Filtration Rate , Glucose Level 99, Calcium Level 8.1L Height (Feet): 5 Height (Inches): 5.00 Weight (Pounds): 124 General Appearance: no apparent distress EENT: normal ENT inspection Neck: supple Cardiovascular: normal rate Respiratory/Chest: decreased breath sounds Abdomen: normal bowel sounds, non tender, soft Extremities: non-tender Kentrell Brooks MD February 09, 2019 11:46
--- NOTE | 2019-02-09 11:47 | Pre-Procedure Note/Attestation ---
Pre-Procedure Note/Attestation Complete Prior to Procedure Planned Procedure: not applicable Procedure Narrative: egd Indications for Procedure Pre-Operative Diagnosis: gib Attestation I attest that I discussed the nature of the procedure; its benefits; risks and complications; and alternatives (and the risks and benefits of such alternatives ), prior to the procedure, with the patient (or the patient's legal medical center representative). I attest that, if there was a reasonable possibility of needing a blood transfusion, the patient (or the patient's legal medical center representative) was given the [facility] standardized written summary, pursuant to the David Saqib Blood Safety Act ([place] Health and Safety Code # 1645, as amended). I attest that I re-evaluated the patient just prior to the surgery and that there has been no change in the patient's H&P, except as documented below: Kentrell Brooks MD February 09, 2019 11:47
--- NOTE | 2019-02-09 13:07 | General Progress Note ---
Assessment/Plan Status: unchanged Assessment/Plan: Eunatremic. Eukalemic. Severe Iron Def. For EGD. See Orders. Severe Anemia Hct 21. Transfused + on ALEAH. For EGD ID called for ESBL UTI. Rx per ID. Subjective Allergies: Coded Allergies: No Known Allergies (Verified , 12/28/06) Subjective Confused. Vomited coffee ground. Objective Last 24 Hour Vital Signs Date Time Temp Pulse Resp B/P (MAP) Pulse Ox O2 Delivery O2 Flow Rate FiO2 02/09/19 12:00 97.2 86 20 152/64 (93) 97 02/09/19 09:00 Room Air 02/09/19 08:56 85 139/57 02/09/19 08:00 97.9 85 20 139/57 (84) 97 02/09/19 04:00 97.9 86 18 132/67 (88) 97 02/09/19 00:00 97.8 90 18 153/60 (91) 100 02/08/19 21:00 Room Air 02/08/19 20:00 98.0 88 18 139/66 (90) 100 02/08/19 16:00 98.5 85 19 140/61 (87) 96 Intake and Output 02/08/19 02/09/19 19:00 07:00 Intake Total 100 ml 1440 ml Balance 100 ml 1440 ml IV Total 100 ml 1440 ml # Voids 5 2 # Bowel Movements 1 2 Laboratory Tests 02/09/19 05:57: White Blood Count 11.8H, Red Blood Count 3.08L, Hemoglobin 9.4#L, Hematocrit 27.4L, Mean Corpuscular Volume 89, Mean Corpuscular Hemoglobin 30.4, Mean Corpuscular Hemoglobin Concent 34.3, Red Cell Distribution Width 13.6, Platelet Count 239, Mean Platelet Volume 5.7L, Neutrophils (%) (Auto) 77.6H, Lymphocytes (%) (Auto) 8.0L, Monocytes (%) (Auto) 9.6, Eosinophils (%) (Auto) 2.8, Basophils (%) (Auto) 1.8, Prothrombin Time 12.1H, Prothromb Time International Ratio 1.2H, Activated Partial Thromboplast Time 36H, Sodium Level 141, Potassium Level 3.5, Chloride Level 108H, Carbon Dioxide Level 22, Anion Gap 11 , Blood Urea Nitrogen 18, Creatinine 1.3, Estimat Glomerular Filtration Rate , Glucose Level 99, Calcium Level 8.1L Height (Feet): 5 Height (Inches): 5.00 Weight (Pounds): 124 Objective CV RR Lungs CTA Abd SNT BS + E No CCe Ann López MD February 09, 2019 13:07
--- NOTE | 2019-02-09 13:14 | NUR ---
NURSE NOTES: Patient was picked up by transporter for EGD. ID band was checked. Patient was in stable condition. IV intact.
[2019-02-09] MEDS ORDERED: NS 500ML IVPB ONE (13:25)
[2019-02-09] MEDS ORDERED: Propofol 200mg/20ml IV ONE (13:28)
[2019-02-09] MEDS ORDERED: Midazolam 2mg/2ml Inj ONE (13:28)
[2019-02-09] MEDS ORDERED: fentaNYL 100 mcg/2 mL IV ONE (13:28)
--- NOTE | 2019-02-09 13:48 | Endoscopy Procedure Note ---
Endoscopy Procedure Note General Indication for Procedure: gib Procedures Performed: EGD Operative Findings/Diagnosis: esophagitis Specimen: yes Pt Tolerated Procedure Well: Yes Estimated Blood Loss: none Anesthesia Anesthesiologist: kristy Anesthesia: MAC Inserted Devices Implant(s) used?: No GI Core Measures 50 yrs or older w/o bx or poly: Not Applicable 10yrs. F/U recommended: Not Applicable Kentrell Brooks MD February 09, 2019 13:48
--- NOTE | 2019-02-09 13:57 | Immediate Post-Op Evaluation ---
Immediate Post-Op Evalulation Immediate Post-Op Evalulation Procedure: EGD with Bx feeding tube exchange Date of Evaluation: February 09, 2019 Time of Evaluation: 13:56 IV Fluids: 200 Blood Products: none Estimated Blood Loss: none Urinary Output: none Blood Pressure Systolic: 139 Blood Pressure Diastolic: 58 Pulse Rate: 76 Respiratory Rate: 20 O2 Sat by Pulse Oximetry: 99 Temperature (Fahrenheit): 97.8 Pain Score (1-10): 1 Nausea: No Vomiting: No Complications none Patient Status: reacts, patent, none Hydration Status: adequate Shamar Huynh MD February 09, 2019 13:57
--- NOTE | 2019-02-09 14:40 | NUR ---
NURSE NOTES: Patient came back from PACU. Patient's V/S stable, awake,verbally responsive. Not in respiratory/cardiac distress. GT was replaced per PACU nurse. GT intact with dressing, no bleeding or discharge. IV intact, Will continue to monitor.
--- NOTE | 2019-02-09 14:43 | 48 Hour Post Anesthesia Eval ---
Post Anesthesia Evaluation Procedure: EGD with Bx feeding tube exchange Date of Evaluation: February 09, 2019 Time of Evaluation: 14:42 Blood Pressure Systolic: 105 0: 58 Pulse Rate: 76 Respiratory Rate: 22 Temperature (Fahrenheit): 97.2 O2 Sat by Pulse Oximetry: 98 Airway: patent Nausea: No Vomiting: No Pain Intensity: 1 Hydration Status: adequate Cardiopulmonary Status: stable Mental Status/LOC: patient returned to baseline Follow-up Care/Observations: n/a Post-Anesthesia Complications: none Follow-up care needed: N/A Shamar Huynh MD February 09, 2019 14:43
--- NOTE | 2019-02-09 15:58 | Surgery Progress Note ---
Surgery Progress Note Subjective Additional Comments no acute events. EGD today. no n/v/f/c. Objective Last 24 Hour Vital Signs Date Time Temp Pulse Resp B/P (MAP) Pulse Ox O2 Delivery O2 Flow Rate FiO2 02/09/19 14:43 76 22 98 02/09/19 14:34 97.8 76 19 129/61 100 Nasal Cannula 3 02/09/19 14:20 71 18 132/62 100 Nasal Cannula 3 02/09/19 14:10 79 16 141/64 100 Nasal Cannula 3 02/09/19 14:05 77 20 135/65 100 Nasal Cannula 3 02/09/19 14:00 72 18 149/67 100 Nasal Cannula 3 02/09/19 13:57 76 20 99 02/09/19 13:55 97.8 76 20 139/62 100 Nasal Cannula 3 02/09/19 12:00 97.2 86 20 152/64 (93) 97 02/09/19 09:00 Room Air 02/09/19 08:56 85 139/57 02/09/19 08:00 97.9 85 20 139/57 (84) 97 02/09/19 04:00 97.9 86 18 132/67 (88) 97 02/09/19 00:00 97.8 90 18 153/60 (91) 100 02/08/19 21:00 Room Air 02/08/19 20:00 98.0 88 18 139/66 (90) 100 02/08/19 16:00 98.5 85 19 140/61 (87) 96 I&O Intake and Output 02/08/19 02/09/19 19:00 07:00 Intake Total 100 ml 1440 ml Balance 100 ml 1440 ml IV Total 100 ml 1440 ml # Voids 5 2 # Bowel Movements 1 2 Dressing: other Wound: other Drains: other Cardiovascular: RSR Respiratory: decreased breath sounds Abdomen: soft, present bowel sounds, non-distended Extremities: no tenderness, no cyanosis Laboratory Tests Test 02/09/19 05:57 White Blood Count 11.8 K/UL (4.8-10.8) H Red Blood Count 3.08 M/UL (4.70-6.10) L Hemoglobin 9.4 G/DL (14.2-18.0) #L Hematocrit 27.4 % (42.0-52.0) L Mean Corpuscular Volume 89 FL (80-99) Mean Corpuscular Hemoglobin 30.4 PG (27.0-31.0) Mean Corpuscular Hemoglobin Concent 34.3 G/DL (32.0-36.0) Red Cell Distribution Width 13.6 % (11.6-14.8) Platelet Count 239 K/UL (150-450) Mean Platelet Volume 5.7 FL (6.5-10.1) L Neutrophils (%) (Auto) 77.6 % (45.0-75.0) H Lymphocytes (%) (Auto) 8.0 % (20.0-45.0) L Monocytes (%) (Auto) 9.6 % (1.0-10.0) Eosinophils (%) (Auto) 2.8 % (0.0-3.0) Basophils (%) (Auto) 1.8 % (0.0-2.0) Prothrombin Time 12.1 SEC (9.30-11.50) H Prothromb Time International Ratio 1.2 (0.9-1.1) H Activated Partial Thromboplast Time 36 SEC (23-33) H Sodium Level 141 MMOL/L (136-145) Potassium Level 3.5 MMOL/L (3.5-5.1) Chloride Level 108 MMOL/L (98-107) H Carbon Dioxide Level 22 MMOL/L (21-32) Anion Gap 11 mmol/L (5-15) Blood Urea Nitrogen 18 mg/dL (7-18) Creatinine 1.3 MG/DL (0.55-1.30) Estimat Glomerular Filtration Rate mL/min (>60) Glucose Level 99 MG/DL (74-106) Calcium Level 8.1 MG/DL (8.5-10.1) L Plan Problems: (1) Decubitus skin ulcer Assessment & Plan: Hyperpigmentation from previous pressure injury noted to sacrum with areas of dry brown skin pigmentation without erythema or induration.Non-tender when palpated.Erythema with excoriation noted to perianal area. Brown skin pigmentations noted to R and L ischial areas..Erythema noted to urinary meatus.Pt complained of burning .Moisture Barrier applied. Both heels are soft but blanchable. Pt denied pain or tenderness when each heel minimally palpated. No other areas of skin concerns noted. Educated pt on wound prevention.Encouraged to frequently shift and off-lift buttocks while repositioning. Encouraged to keep heels off-loaded with pillow. Tx.Plan: Apply Moisture Barrier to Vielka-Anal area. Scrotum and both ischail areas with each Incontinence care. Apply Moisture Barrier to Sacrum. Cover with Optifoam drsg. Change every 3 days and prn. Apply Cavilon Skin Barrier to both heels. Cover each heel with Optifoam drsg. Change every 7 days and prn. Encourage and assist as needed with repositioning at least every 2 hours or as tolerated. Off-load heels with pillow. (2) UTI (urinary tract infection) (3) Hyperkalemia (4) Renal insufficiency (5) Occult blood in stools (6) Duodenal ulcer Assessment & Plan: on PPI next EGD as per GI today will follow with recs (7) Dehydration (8) Infection (9) Duodenitis (10) Coffee ground emesis (11) G tube feedings (12) Sepsis due to pneumonia (13) aspiration p (14) Anthony Licea February 09, 2019 15:58
--- NOTE | 2019-02-09 19:00 | NUR ---
NURSE NOTES: Patient is tolerating well with the feeding without residual.
--- NOTE | 2019-02-09 19:23 | NUR ---
HAND-OFF: Report given to
--- NOTE | 2019-02-09 19:30 | Procedure Note ---
DATE OF PROCEDURE: 02/09/2019 SURGEON: Kentrell Brooks M.D. PROCEDURE: Upper endoscopy with biopsy and changing G-tube. ANESTHESIA: Shamar Huynh M.D. INSTRUMENT: Olympus adult flexible upper endoscope. INDICATION: GI bleeding. REASON FOR PROCEDURE: The procedure, risks, benefits, and possible consequences, including hemorrhage, aspiration, perforation and infection, and alternative treatments, were explained to the patient/legal guardian by Dr. Kentrell Brooks and the patient/legal guardian understood and accepted these risks. PROCEDURE IN DETAIL: After informed consent was obtained and the patient was adequately sedated, Olympus upper endoscope was advanced from the mouth to the second portion of the duodenum and retroflexion was performed in the stomach. The patient had evidence of diffuse gastritis in the antrum. Biopsy from antrum was obtained to rule out H. pylori infection. The patient also had minimum esophagitis, may be LA criteria grade 1. No obvious active bleeding at this time. G-tube seems to be deflating and getting loaded the balloon so it was time for to change so we removed the 22-Angolan and replaced it with 20-Angolan balloon type without any complication. The patient tolerated procedure well without any complication. SUMMARY OF FINDINGS: 1. Minimum distal esophagitis. 2. Gastritis, status post biopsy. 3. Status post successful G-tube replacement. RECOMMENDATIONS: 1. Resume G-tube feeding. 2. Change PPI to daily. 3. Follow pathology. I want to thank, Dr. López for this kind referral. Kentrell Brooks M.D. DR: Nigel JOB#: [id number] CC: Ann López M.D.; Fax#: [phone]
--- NOTE | 2019-02-09 19:30 | NUR ---
NURSE NOTES: Patient asleep in bed, no signs of pain, not in respiratory distress. With feeding tube in place. Call light within reach. Bed in lowest position, lock engaged and alarm on. Will continue to monitor.
[2019-02-09] MEDS: Iron Sucrose 100 MG in NS 55 ML IV SCH (20:56)
[2019-02-10] VITALS: BP 141/63
[2019-02-10 04:00] VITALS: BP 105/66
[2019-02-10] MEDS: NovoLOG Insulin Flexpen SUBQ SCH ×3 (05:12→18:50)
[2019-02-10 07:11] LABS: BASOPHILS % (AUTO) 1.2 % (0.0-2.0); HEMATOCRIT 27.1 % (42.0-52.0); HEMOGLOBIN 9.3 G/DL (14.2-18.0); LYMPHOCYTES % (AUTO) 8.1 % (20.0-45.0); MEAN CORPUSCULAR VOLUME 91 FL (80-99); MONOCYTES % (AUTO) 11.6 % (1.0-10.0); PLATELET COUNT 254 K/UL (150-450); RED BLOOD COUNT 2.98 M/UL (4.70-6.10); RED CELL DISTRIBUTION WIDTH 14.5 % (11.6-14.8); WHITE BLOOD COUNT 10.8 K/UL (4.8-10.8)
--- NOTE | 2019-02-10 07:30 | NUR ---
HAND-OFF: Report given to JORGE Eaton.
[2019-02-10 07:32] LABS: ANION GAP 8 mmol/L (5-15); BLOOD UREA NITROGEN 12 mg/dL (7-18); CALCIUM 7.7 MG/DL (8.5-10.1); CARBON DIOXIDE 24 MMOL/L (21-32); CHLORIDE 108 MMOL/L (98-107); CREATININE 1.1 MG/DL (0.55-1.30); POTASSIUM 3.7 MMOL/L (3.5-5.1); SODIUM 140 MMOL/L (136-145)
--- NOTE | 2019-02-10 07:35 | NUR ---
NURSE NOTES: Received patient in bed, asleep but arousable to name and shaking. Breathing is even and unlabored. No s/s of pain or discomfort per FLACC pain scale. GT intact, no residual @ this time. HOB elevated. Will continue plan of care.
[2019-02-10 08:00] VITALS: BP 131/57
[2019-02-10] MEDS: Heparin 5000 units/ml inj SUBQ SCH ×2 (08:55→21:07)
--- NOTE | 2019-02-10 09:47 | General Progress Note ---
Assessment/Plan Status: unchanged Assessment/Plan: Eunatremic. Eukalemic. Severe Iron Def. For EGD. See Orders. Severe Anemia Hct 21. Transfused + on ALEAH. EGD -yesterday gastritis. Resume TF ID called for ESBL UTI. Rx per ID. Subjective Allergies: Coded Allergies: No Known Allergies (Verified , 12/28/06) Subjective Confused. Vomited coffee ground. Objective Last 24 Hour Vital Signs Date Time Temp Pulse Resp B/P (MAP) Pulse Ox O2 Delivery O2 Flow Rate FiO2 02/10/19 09:05 Room Air 02/10/19 08:55 80 131/57 02/10/19 04:00 97.8 65 16 105/66 (79) 98 02/10/19 00:00 98.3 79 18 141/63 (89) 100 02/09/19 21:00 Room Air 02/09/19 20:00 97.9 77 20 129/54 (79) 100 02/09/19 16:00 97.8 79 18 138/57 (84) 100 02/09/19 15:35 98.0 80 18 124/62 (82) 99 02/09/19 15:20 98.1 78 18 127/58 (81) 100 02/09/19 15:05 98.1 78 18 126/61 (82) 100 02/09/19 14:50 98.2 79 20 127/59 (81) 100 02/09/19 14:43 76 22 98 02/09/19 14:35 97.3 77 18 128/58 98 Nasal Cannula 3 02/09/19 14:34 97.8 76 19 129/61 100 Nasal Cannula 3 02/09/19 14:20 73 16 130/60 98 Nasal Cannula 3 02/09/19 14:20 71 18 132/62 100 Nasal Cannula 3 02/09/19 14:10 75 17 122/52 98 Nasal Cannula 3 02/09/19 14:10 79 16 141/64 100 Nasal Cannula 3 02/09/19 14:05 77 20 135/65 100 Nasal Cannula 3 02/09/19 14:00 72 18 149/67 100 Nasal Cannula 3 02/09/19 14:00 71 15 125/65 98 Nasal Cannula 3 02/09/19 13:57 76 20 99 02/09/19 13:55 97.8 76 20 139/67 98 Nasal Cannula 3 02/09/19 13:55 97.8 76 20 139/62 100 Nasal Cannula 3 02/09/19 12:00 97.2 86 20 152/64 (93) 97 Intake and Output 02/09/19 02/10/19 19:00 07:00 Intake Total 1030 ml 1525 ml Balance 1030 ml 1525 ml Intake Free Water 80 ml 225 ml IV Total 750 ml 750 ml Tube Feeding 200 ml 550 ml # Voids 3 Laboratory Tests 02/10/19 05:57: White Blood Count 10.8, Red Blood Count 2.98L, Hemoglobin 9.3L, Hematocrit 27.1L , Mean Corpuscular Volume 91, Mean Corpuscular Hemoglobin 31.3H, Mean Corpuscular Hemoglobin Concent 34.6, Red Cell Distribution Width 14.5, Platelet Count 254, Mean Platelet Volume 6.1L, Neutrophils (%) (Auto) 74.0, Lymphocytes ( %) (Auto) 8.1L, Monocytes (%) (Auto) 11.6H, Eosinophils (%) (Auto) 5.0H, Basophils (%) (Auto) 1.2, Sodium Level 140, Potassium Level 3.7, Chloride Level 108H, Carbon Dioxide Level 24, Anion Gap 8, Blood Urea Nitrogen 12, Creatinine 1.1, Estimat Glomerular Filtration Rate , Glucose Level 146H, Calcium Level 7.7L Height (Feet): 5 Height (Inches): 5.00 Weight (Pounds): 125 Objective CV RR Lungs CTA Abd SNT BS + E No CCe Ann López MD February 10, 2019 09:47
--- NOTE | 2019-02-10 10:00 | NUR ---
NURSE NOTES: Patient's IV on right wrist is occluded, RN tried to insert another IV but patient refused and stated that " No, don't bother me." RN explained the risks and benefits. Patient still refused. Will follow up.
--- NOTE | 2019-02-10 10:03 | GI Progress Note ---
Assessment/Plan Problems: (1) Anemia ICD Codes: D64.9 - Anemia, unspecified SNOMED: 586814622 (2) DM (3) G tube feedings ICD Codes: Z93.1 - Gastrostomy status SNOMED: 551098028, 473584432 (4) Duodenal ulcer ICD Codes: K26.9 - Duodenal ulcer, unspecified as acute or chronic, without hemorrhage or perforation SNOMED: 80346596 (5) Dehydration ICD Codes: E86.0 - Dehydration SNOMED: 61072754 Status: stable Status Narrative Discussed with Dr. Brooks. Assessment/Plan KUB negative s/p EGD, SUMMARY OF FINDINGS: 1. Minimum distal esophagitis. 2. Gastritis, status post biopsy. 3. Status post successful G-tube replacement. okay for DC per GI standpoint add lopid prn transfusions prevacid daily repeat labs in am The patient was seen and examined at bedside and all new and available data was reviewed in the patients chart. I agree with the above findings, impression and plan. (Patient seen earlier today. Signature stamp does not reflect patient encounter time.). - Kentrell Brooks MD Subjective Subjective limited Objective Last 24 Hour Vital Signs Date Time Temp Pulse Resp B/P (MAP) Pulse Ox O2 Delivery O2 Flow Rate FiO2 02/10/19 09:05 Room Air 02/10/19 08:55 80 131/57 02/10/19 08:00 98.0 80 20 131/57 (81) 98 02/10/19 04:00 97.8 65 16 105/66 (79) 98 02/10/19 00:00 98.3 79 18 141/63 (89) 100 02/09/19 21:00 Room Air 02/09/19 20:00 97.9 77 20 129/54 (79) 100 02/09/19 16:00 97.8 79 18 138/57 (84) 100 02/09/19 15:35 98.0 80 18 124/62 (82) 99 02/09/19 15:20 98.1 78 18 127/58 (81) 100 02/09/19 15:05 98.1 78 18 126/61 (82) 100 02/09/19 14:50 98.2 79 20 127/59 (81) 100 02/09/19 14:43 76 22 98 02/09/19 14:35 97.3 77 18 128/58 98 Nasal Cannula 3 02/09/19 14:34 97.8 76 19 129/61 100 Nasal Cannula 3 02/09/19 14:20 73 16 130/60 98 Nasal Cannula 3 02/09/19 14:20 71 18 132/62 100 Nasal Cannula 3 02/09/19 14:10 75 17 122/52 98 Nasal Cannula 3 02/09/19 14:10 79 16 141/64 100 Nasal Cannula 3 02/09/19 14:05 77 20 135/65 100 Nasal Cannula 3 02/09/19 14:00 72 18 149/67 100 Nasal Cannula 3 02/09/19 14:00 71 15 125/65 98 Nasal Cannula 3 02/09/19 13:57 76 20 99 02/09/19 13:55 97.8 76 20 139/67 98 Nasal Cannula 3 02/09/19 13:55 97.8 76 20 139/62 100 Nasal Cannula 3 02/09/19 12:00 97.2 86 20 152/64 (93) 97 Intake and Output 02/09/19 02/10/19 19:00 07:00 Intake Total 1030 ml 1525 ml Balance 1030 ml 1525 ml Intake Free Water 80 ml 225 ml IV Total 750 ml 750 ml Tube Feeding 200 ml 550 ml # Voids 3 Laboratory Tests Test 02/10/19 05:57 White Blood Count 10.8 K/UL (4.8-10.8) Red Blood Count 2.98 M/UL (4.70-6.10) L Hemoglobin 9.3 G/DL (14.2-18.0) L Hematocrit 27.1 % (42.0-52.0) L Mean Corpuscular Volume 91 FL (80-99) Mean Corpuscular Hemoglobin 31.3 PG (27.0-31.0) H Mean Corpuscular Hemoglobin Concent 34.6 G/DL (32.0-36.0) Red Cell Distribution Width 14.5 % (11.6-14.8) Platelet Count 254 K/UL (150-450) Mean Platelet Volume 6.1 FL (6.5-10.1) L Neutrophils (%) (Auto) 74.0 % (45.0-75.0) Lymphocytes (%) (Auto) 8.1 % (20.0-45.0) L Monocytes (%) (Auto) 11.6 % (1.0-10.0) H Eosinophils (%) (Auto) 5.0 % (0.0-3.0) H Basophils (%) (Auto) 1.2 % (0.0-2.0) Sodium Level 140 MMOL/L (136-145) Potassium Level 3.7 MMOL/L (3.5-5.1) Chloride Level 108 MMOL/L (98-107) H Carbon Dioxide Level 24 MMOL/L (21-32) Anion Gap 8 mmol/L (5-15) Blood Urea Nitrogen 12 mg/dL (7-18) Creatinine 1.1 MG/DL (0.55-1.30) Estimat Glomerular Filtration Rate mL/min (>60) Glucose Level 146 MG/DL (74-106) H Calcium Level 7.7 MG/DL (8.5-10.1) L Height (Feet): 5 Height (Inches): 5.00 Weight (Pounds): 125 General Appearance: no apparent distress Cardiovascular: normal rate Respiratory/Chest: normal breath sounds, no respiratory distress Abdominal Exam: normal bowel sounds, non tender, soft, GT site - c/d/i Extremities: non-tender Supa Owens NP February 10, 2019 10:03
--- NOTE | 2019-02-10 11:40 | NUR ---
NURSE NOTES: Rn tried to insert IV but patient refused again stating " I am 89 something years old. I don't need it.Leave me alone." and patient waved his arm resisting. Charge nurse witnessed. Dr. López was paged and called back. RN relayed doctor that patient is getting IVF of D5 NS with 20meq kcl @75 and he is tolerating with feeding formula. MD aware and said " It is ok not to have an IV now." Will follow up. Patient's V/S stable. No s/s of dehydration. Will continue to monitor.
[2019-02-10 12:00] VITALS: BP 142/64
--- NOTE | 2019-02-10 12:45 | Infectious Diseases Prog Note ---
"Assessment/Plan Assessment/Plan 1. proteus | klebsiella UTI treated 2. diabetes mellitus 3. hypertension 4. CVA 5. leucocytosis resolved 6. chronic kidney disease 7. Anemia 8. Gastritis & Esophagitis P 1. observe off antibiotic Subjective ROS Limited/Unobtainable: Yes Allergies: Coded Allergies: No Known Allergies (Verified , 12/28/06) Objective Vital Signs Last 24 Hour Vital Signs Date Time Temp Pulse Resp B/P (MAP) Pulse Ox O2 Delivery O2 Flow Rate FiO2 02/10/19 09:05 Room Air 02/10/19 08:55 80 131/57 02/10/19 08:00 98.0 80 20 131/57 (81) 98 02/10/19 04:00 97.8 65 16 105/66 (79) 98 02/10/19 00:00 98.3 79 18 141/63 (89) 100 02/09/19 21:00 Room Air 02/09/19 20:00 97.9 77 20 129/54 (79) 100 02/09/19 16:00 97.8 79 18 138/57 (84) 100 02/09/19 15:35 98.0 80 18 124/62 (82) 99 02/09/19 15:20 98.1 78 18 127/58 (81) 100 02/09/19 15:05 98.1 78 18 126/61 (82) 100 02/09/19 14:50 98.2 79 20 127/59 (81) 100 02/09/19 14:43 76 22 98 02/09/19 14:35 97.3 77 18 128/58 98 Nasal Cannula 3 02/09/19 14:34 97.8 76 19 129/61 100 Nasal Cannula 3 02/09/19 14:20 73 16 130/60 98 Nasal Cannula 3 02/09/19 14:20 71 18 132/62 100 Nasal Cannula 3 02/09/19 14:10 75 17 122/52 98 Nasal Cannula 3 02/09/19 14:10 79 16 141/64 100 Nasal Cannula 3 02/09/19 14:05 77 20 135/65 100 Nasal Cannula 3 02/09/19 14:00 72 18 149/67 100 Nasal Cannula 3 02/09/19 14:00 71 15 125/65 98 Nasal Cannula 3 02/09/19 13:57 76 20 99 02/09/19 13:55 97.8 76 20 139/67 98 Nasal Cannula 3 02/09/19 13:55 97.8 76 20 139/62 100 Nasal Cannula 3 Height (Feet): 5 Height (Inches): 5.00 Weight (Pounds): 125 General Appearance: no acute distress HEENT: mucous membranes moist Respiratory/Chest: lungs clear Cardiovascular: normal rate Abdomen: soft, non tender, other - GT feeding Extremities: no edema Neurologic/Psychiatric: alert, responsive Laboratory Tests Test 02/10/19 05:57 White Blood Count 10.8 K/UL (4.8-10.8) Red Blood Count 2.98 M/UL (4.70-6.10) L Hemoglobin 9.3 G/DL (14.2-18.0) L Hematocrit 27.1 % (42.0-52.0) L Mean Corpuscular Volume 91 FL (80-99) Mean Corpuscular Hemoglobin 31.3 PG (27.0-31.0) H Mean Corpuscular Hemoglobin Concent 34.6 G/DL (32.0-36.0) Red Cell Distribution Width 14.5 % (11.6-14.8) Platelet Count 254 K/UL (150-450) Mean Platelet Volume 6.1 FL (6.5-10.1) L Neutrophils (%) (Auto) 74.0 % (45.0-75.0) Lymphocytes (%) (Auto) 8.1 % (20.0-45.0) L Monocytes (%) (Auto) 11.6 % (1.0-10.0) H Eosinophils (%) (Auto) 5.0 % (0.0-3.0) H Basophils (%) (Auto) 1.2 % (0.0-2.0) Sodium Level 140 MMOL/L (136-145) Potassium Level 3.7 MMOL/L (3.5-5.1) Chloride Level 108 MMOL/L (98-107) H Carbon Dioxide Level 24 MMOL/L (21-32) Anion Gap 8 mmol/L (5-15) Blood Urea Nitrogen 12 mg/dL (7-18) Creatinine 1.1 MG/DL (0.55-1.30) Estimat Glomerular Filtration Rate mL/min (>60) Glucose Level 146 MG/DL (74-106) H Calcium Level 7.7 MG/DL (8.5-10.1) L Current Medications Medications (Trade) Dose Ordered Sig/Jarrod Route PRN Reason Start Time Stop Time Status Last Admin Dose Admin Amlodipine Besylate (Norvasc) 10 mg DAILY ORAL 02/03/19 09:15 03/05/19 09:14 02/10/19 08:55 Dextrose (Dextrose 50%) 25 ml Q30M PRN IV Hypoglycemia 01/27/19 19:00 02/26/19 18:59 02/07/19 23:44 Dextrose (Dextrose 50%) 50 ml Q30M PRN IV Hypoglycemia 01/27/19 19:00 02/26/19 18:59 Dextrose/ Electrolytes 1,000 ml @ 75 mls/hr [id number] IV 02/08/19 14:00 03/10/19 13:59 02/10/19 05:14 Epoetin Juwan (Epoetin Juwan-EPBX(NON ESRD)) 8,000 unit FRI-FRI-FRI SUBQ 02/08/19 21:00 03/10/19 20:59 02/08/19 21:59 Gemfibrozil (Lopid) 600 mg TWICE A DAY GT 02/04/19 18:00 03/06/19 17:59 02/10/19 08:54 Heparin Sodium (Porcine) (Heparin 5000 units/ml) 5,000 units EVERY 12 HOURS SUBQ 01/27/19 21:00 02/26/19 20:59 02/10/19 08:55 Insulin Aspart (NovoLOG) Q6HR SUBQ 02/04/19 00:00 02/26/19 20:59 02/10/19 11:59 Lansoprazole (Prevacid) 30 mg BID GT 02/10/19 18:00 03/12/19 17:59 Metoclopramide HCl (Reglan) 5 mg Q6H PRN IVP Nausea & Vomiting 02/04/19 15:14 03/06/19 15:13 Ondansetron HCl (Zofran) 4 mg Q6H PRN IVP Nausea & Vomiting 02/03/19 09:15 03/05/19 09:14 02/05/19 14:45 Gerald Conway MD February 10, 2019 12:45"
--- NOTE | 2019-02-10 15:07 | NUR ---
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 GASTRITIS S/P BIOPSY . S/P G-TUBE PLACEMENT 02/10 VS: BP 142/64, P 80, T 97.7, RR 20 SpO2 95 RBC 2.98, H&H 9.3/27.1 IS:NOVOLOG SUBQ HEPARIN SUBQ NORVASC 10mg LOPID 600mg D5/ELECTROLYTES x1L MED/SURG STATUS
[2019-02-10 16:00] VITALS: BP 141/61
--- NOTE | 2019-02-10 16:50 | Surgery Progress Note ---
Surgery Progress Note Subjective Additional Comments leukocytosis resolved. labs improved. overall improving. exam stable. Objective Last 24 Hour Vital Signs Date Time Temp Pulse Resp B/P (MAP) Pulse Ox O2 Delivery O2 Flow Rate FiO2 02/10/19 12:00 97.7 80 20 142/64 (90) 95 02/10/19 09:05 Room Air 02/10/19 08:55 80 131/57 02/10/19 08:00 98.0 80 20 131/57 (81) 98 02/10/19 04:00 97.8 65 16 105/66 (79) 98 02/10/19 00:00 98.3 79 18 141/63 (89) 100 02/09/19 21:00 Room Air 02/09/19 20:00 97.9 77 20 129/54 (79) 100 I&O Intake and Output 02/09/19 02/10/19 19:00 07:00 Intake Total 1030 ml 1525 ml Balance 1030 ml 1525 ml Intake Free Water 80 ml 225 ml IV Total 750 ml 750 ml Tube Feeding 200 ml 550 ml # Voids 3 Dressing: dry Wound: clean Cardiovascular: RSR Respiratory: clear Abdomen: soft, flat, non-tender, present bowel sounds, non-distended Extremities: no tenderness, no cyanosis Laboratory Tests Test 02/10/19 05:57 White Blood Count 10.8 K/UL (4.8-10.8) Red Blood Count 2.98 M/UL (4.70-6.10) L Hemoglobin 9.3 G/DL (14.2-18.0) L Hematocrit 27.1 % (42.0-52.0) L Mean Corpuscular Volume 91 FL (80-99) Mean Corpuscular Hemoglobin 31.3 PG (27.0-31.0) H Mean Corpuscular Hemoglobin Concent 34.6 G/DL (32.0-36.0) Red Cell Distribution Width 14.5 % (11.6-14.8) Platelet Count 254 K/UL (150-450) Mean Platelet Volume 6.1 FL (6.5-10.1) L Neutrophils (%) (Auto) 74.0 % (45.0-75.0) Lymphocytes (%) (Auto) 8.1 % (20.0-45.0) L Monocytes (%) (Auto) 11.6 % (1.0-10.0) H Eosinophils (%) (Auto) 5.0 % (0.0-3.0) H Basophils (%) (Auto) 1.2 % (0.0-2.0) Sodium Level 140 MMOL/L (136-145) Potassium Level 3.7 MMOL/L (3.5-5.1) Chloride Level 108 MMOL/L (98-107) H Carbon Dioxide Level 24 MMOL/L (21-32) Anion Gap 8 mmol/L (5-15) Blood Urea Nitrogen 12 mg/dL (7-18) Creatinine 1.1 MG/DL (0.55-1.30) Estimat Glomerular Filtration Rate mL/min (>60) Glucose Level 146 MG/DL (74-106) H Calcium Level 7.7 MG/DL (8.5-10.1) L Plan Problems: (1) Decubitus skin ulcer Assessment & Plan: Hyperpigmentation from previous pressure injury noted to sacrum with areas of dry brown skin pigmentation without erythema or induration.Non-tender when palpated.Erythema with excoriation noted to perianal area. Brown skin pigmentations noted to R and L ischial areas..Erythema noted to urinary meatus.Pt complained of burning .Moisture Barrier applied. Both heels are soft but blanchable. Pt denied pain or tenderness when each heel minimally palpated. No other areas of skin concerns noted. Educated pt on wound prevention.Encouraged to frequently shift and off-lift buttocks while repositioning. Encouraged to keep heels off-loaded with pillow. Tx.Plan: Apply Moisture Barrier to Vielka-Anal area. Scrotum and both ischail areas with each Incontinence care. Apply Moisture Barrier to Sacrum. Cover with Optifoam drsg. Change every 3 days and prn. Apply Cavilon Skin Barrier to both heels. Cover each heel with Optifoam drsg. Change every 7 days and prn. Encourage and assist as needed with repositioning at least every 2 hours or as tolerated. Off-load heels with pillow. (2) UTI (urinary tract infection) (3) Hyperkalemia (4) Renal insufficiency (5) Occult blood in stools (6) Duodenal ulcer Assessment & Plan: on PPI next EGD as per GI today will follow with recs (7) Dehydration (8) Infection (9) Duodenitis (10) Coffee ground emesis (11) G tube feedings (12) Sepsis due to pneumonia (13) aspiration p (14) Anthony Licea February 10, 2019 16:50
--- NOTE | 2019-02-10 19:30 | NUR ---
HAND-OFF: Report given to edie.
--- NOTE | 2019-02-10 19:48 | NUR ---
NURSE NOTES: Pt is in bed, awake and verbal. No acute distress noted. No SOB. HOB elevated. Glucerna 1.5 running at 50ml/hr via G-tube.Pt will be turned q2hrs at least and wound care will be provided. Bed locked low in position,side rails up and call light within reach. Bed alarm on. Fall precaution implemented. Pt will be monitored.
[2019-02-10 20:00] VITALS: BP 92/56
[2019-02-10] MEDS: Epoetin Alfa-EPBX (NON ESRD)4000 units/ml vial SUBQ SCH (21:06)
[2019-02-11] VITALS: BP 149/59
[2019-02-11] MEDS: NovoLOG Insulin Flexpen SUBQ SCH ×3 (01:31→12:09)
[2019-02-11 04:00] VITALS: BP 157/66
--- NOTE | 2019-02-11 05:30 | NUR ---
NURSE NOTES: Pt is in bed, awake and verbal. No acute distress noted. Glucerna 1.5 running at 50ml/hr. HOB elevated. Pt had a soft BM, Pt was cleaned and wound dressing changed. Bed linen changed. Pt was turned at least q2hrs during this shift. No IV access pt refuses.
--- NOTE | 2019-02-11 07:00 | NUR ---
HAND-OFF: Report given to JORGE Cornejo.
[2019-02-11 07:08] LABS: ANION GAP 6 mmol/L (5-15); BLOOD UREA NITROGEN 18 mg/dL (7-18); CALCIUM 8.1 MG/DL (8.5-10.1); CARBON DIOXIDE 26 MMOL/L (21-32); CHLORIDE 104 MMOL/L (98-107); CREATININE 1.2 MG/DL (0.55-1.30); POTASSIUM 4.7 MMOL/L (3.5-5.1); SODIUM 136 MMOL/L (136-145)
[2019-02-11 07:12] LABS: BASOPHILS % (AUTO) 1.7 % (0.0-2.0); EOSINOPHILS % (AUTO) 5.1 % (0.0-3.0); HEMATOCRIT 31.4 % (42.0-52.0); LYMPHOCYTES % (AUTO) 8.6 % (20.0-45.0); MEAN CORPUSCULAR VOLUME 91 FL (80-99); MONOCYTES % (AUTO) 9.3 % (1.0-10.0); NEUTROPHILS % (AUTO) 75.3 % (45.0-75.0); PLATELET COUNT 254 K/UL (150-450); RED BLOOD COUNT 3.45 M/UL (4.70-6.10); RED CELL DISTRIBUTION WIDTH 15.4 % (11.6-14.8); WHITE BLOOD COUNT 12.3 K/UL (4.8-10.8)
--- NOTE | 2019-02-11 07:30 | NUR ---
NURSE NOTES: Received pt from RN RUSS. Pt is confused and orient x2. pt is in RA, No SOB or acute respiratory distress noted. pt has condom cath in place is running well. pt has no iv access, is aware. pt has g tube in place is running well. Dr SIMONS and FILIPPO are aware about WBC and other lab results. all needs attended, bed is locked and is in the lowest position, call light within easy reach. will continue to monitor.
[2019-02-11 08:00] VITALS: BP 150/68
[2019-02-11] MEDS: Heparin 5000 units/ml inj SUBQ SCH (08:27)
--- NOTE | 2019-02-11 09:55 | General Progress Note ---
Assessment/Plan Status: stable Assessment/Plan: Eunatremic. Eukalemic. Severe Iron Def. For EGD. See Orders. Severe Anemia Hct 21. Transfused + on ALEAH. EGD -yesterday gastritis. Resumed TF DC to SNF Subjective Allergies: Coded Allergies: No Known Allergies (Verified , 12/28/06) Subjective Confused. Resumed TF. Objective Last 24 Hour Vital Signs Date Time Temp Pulse Resp B/P (MAP) Pulse Ox O2 Delivery O2 Flow Rate FiO2 02/11/19 08:27 90 150/68 02/11/19 08:00 98.0 90 18 150/68 (95) 99 02/11/19 04:00 98.2 88 18 157/66 (96) 100 02/11/19 00:00 98.8 83 18 149/59 (89) 100 02/10/19 21:00 Room Air 02/10/19 20:00 98.2 85 18 92/56 (68) 100 02/10/19 16:00 98.4 82 22 141/61 (87) 99 02/10/19 12:00 97.7 80 20 142/64 (90) 95 Intake and Output 02/10/19 02/11/19 18:59 06:59 Intake Total 800 ml 1000 ml Output Total 600 ml 700 ml Balance 200 ml 300 ml Intake Free Water 200 ml 400 ml Tube Feeding 600 ml 600 ml Output Urine Total 600 ml 700 ml # Voids 4 3 # Bowel Movements 5 1 Laboratory Tests 02/11/19 05:58: White Blood Count 12.3H, Red Blood Count 3.45L, Hemoglobin 11.0L, Hematocrit 31.4L, Mean Corpuscular Volume 91, Mean Corpuscular Hemoglobin 31.8H, Mean Corpuscular Hemoglobin Concent 35.0, Red Cell Distribution Width 15.4H, Platelet Count 254, Mean Platelet Volume 6.0L, Neutrophils (%) (Auto) 75.3H, Lymphocytes (%) (Auto) 8.6L, Monocytes (%) (Auto) 9.3, Eosinophils (%) (Auto) 5.1H, Basophils (%) (Auto) 1.7, Sodium Level 136, Potassium Level 4.7, Chloride Level 104, Carbon Dioxide Level 26, Anion Gap 6, Blood Urea Nitrogen 18, Creatinine 1.2, Estimat Glomerular Filtration Rate , Glucose Level 139H, Calcium Level 8.1L Height (Feet): 5 Height (Inches): 5.00 Weight (Pounds): 125 Objective CV RR Lungs CTA Abd SNT BS + E No CCe Ann López MD February 11, 2019 09:55
[2019-02-11] MEDS ORDERED: HEPARIN SO5000 UNIT2 SUBQ (09:57)
[2019-02-11] MEDS ORDERED: NORVASC10 MG ORAL (09:57)
--- NOTE | 2019-02-11 10:00 | NUR ---
NURSE NOTES: Dr BARKLEY visited pt, he is aware about WBC and no iv access, no new order. will continue to monitor.
--- NOTE | 2019-02-11 10:24 | GI Progress Note ---
Assessment/Plan Problems: (1) Anemia ICD Codes: D64.9 - Anemia, unspecified SNOMED: 162135607 (2) DM (3) G tube feedings ICD Codes: Z93.1 - Gastrostomy status SNOMED: 423732639, 758815714 (4) Duodenal ulcer ICD Codes: K26.9 - Duodenal ulcer, unspecified as acute or chronic, without hemorrhage or perforation SNOMED: 60269242 (5) Dehydration ICD Codes: E86.0 - Dehydration SNOMED: 18743030 Status: stable Status Narrative Discussed with Dr. Brooks Assessment/Plan KUB negative Stable H&H s/p EGD, SUMMARY OF FINDINGS: 1. Minimum distal esophagitis. 2. Gastritis, status post biopsy. 3. Status post successful G-tube replacement. okay for DC per GI standpoint Continue Lopid prn transfusions prevacid daily repeat labs in am The patient was seen and examined at bedside and all new and available data was reviewed in the patients chart. I agree with the above findings, impression and plan. (Patient seen earlier today. Signature stamp does not reflect patient encounter time.). - Kentrell Brooks MD Subjective Subjective limited Objective Last 24 Hour Vital Signs Date Time Temp Pulse Resp B/P (MAP) Pulse Ox O2 Delivery O2 Flow Rate FiO2 02/11/19 09:00 Room Air 02/11/19 08:27 90 150/68 02/11/19 08:00 98.0 90 18 150/68 (95) 99 02/11/19 04:00 98.2 88 18 157/66 (96) 100 02/11/19 00:00 98.8 83 18 149/59 (89) 100 02/10/19 21:00 Room Air 02/10/19 20:00 98.2 85 18 92/56 (68) 100 02/10/19 16:00 98.4 82 22 141/61 (87) 99 02/10/19 12:00 97.7 80 20 142/64 (90) 95 Intake and Output 02/10/19 02/11/19 18:59 06:59 Intake Total 800 ml 1000 ml Output Total 600 ml 700 ml Balance 200 ml 300 ml Intake Free Water 200 ml 400 ml Tube Feeding 600 ml 600 ml Output Urine Total 600 ml 700 ml # Voids 4 3 # Bowel Movements 5 1 Laboratory Tests Test 02/11/19 05:58 White Blood Count 12.3 K/UL (4.8-10.8) H Red Blood Count 3.45 M/UL (4.70-6.10) L Hemoglobin 11.0 G/DL (14.2-18.0) L Hematocrit 31.4 % (42.0-52.0) L Mean Corpuscular Volume 91 FL (80-99) Mean Corpuscular Hemoglobin 31.8 PG (27.0-31.0) H Mean Corpuscular Hemoglobin Concent 35.0 G/DL (32.0-36.0) Red Cell Distribution Width 15.4 % (11.6-14.8) H Platelet Count 254 K/UL (150-450) Mean Platelet Volume 6.0 FL (6.5-10.1) L Neutrophils (%) (Auto) 75.3 % (45.0-75.0) H Lymphocytes (%) (Auto) 8.6 % (20.0-45.0) L Monocytes (%) (Auto) 9.3 % (1.0-10.0) Eosinophils (%) (Auto) 5.1 % (0.0-3.0) H Basophils (%) (Auto) 1.7 % (0.0-2.0) Sodium Level 136 MMOL/L (136-145) Potassium Level 4.7 MMOL/L (3.5-5.1) Chloride Level 104 MMOL/L (98-107) Carbon Dioxide Level 26 MMOL/L (21-32) Anion Gap 6 mmol/L (5-15) Blood Urea Nitrogen 18 mg/dL (7-18) Creatinine 1.2 MG/DL (0.55-1.30) Estimat Glomerular Filtration Rate mL/min (>60) Glucose Level 139 MG/DL (74-106) H Calcium Level 8.1 MG/DL (8.5-10.1) L Height (Feet): 5 Height (Inches): 5.00 Weight (Pounds): 125 General Appearance: WD/WN, no apparent distress, alert Cardiovascular: normal rate Respiratory/Chest: normal breath sounds, no respiratory distress Abdominal Exam: normal bowel sounds, non tender, soft Extremities: normal range of motion, non-tender Supa Owens NP February 11, 2019 10:24
[2019-02-11 12:00] VITALS: BP 142/74
--- NOTE | 2019-02-11 12:16 | Infectious Diseases Prog Note ---
"Assessment/Plan Assessment/Plan 1. proteus | klebsiella UTI treated 2. diabetes mellitus 3. hypertension 4. CVA 5. leucocytosis 6. chronic kidney disease 7. Anemia 8. Gastritis & Esophagitis P 1. observe off antibiotic Subjective ROS Limited/Unobtainable: Yes Allergies: Coded Allergies: No Known Allergies (Verified , 12/28/06) Objective Vital Signs Last 24 Hour Vital Signs Date Time Temp Pulse Resp B/P (MAP) Pulse Ox O2 Delivery O2 Flow Rate FiO2 02/11/19 09:00 Room Air 02/11/19 08:27 90 150/68 02/11/19 08:00 98.0 90 18 150/68 (95) 99 02/11/19 04:00 98.2 88 18 157/66 (96) 100 02/11/19 00:00 98.8 83 18 149/59 (89) 100 02/10/19 21:00 Room Air 02/10/19 20:00 98.2 85 18 92/56 (68) 100 02/10/19 16:00 98.4 82 22 141/61 (87) 99 Height (Feet): 5 Height (Inches): 5.00 Weight (Pounds): 125 General Appearance: no acute distress HEENT: mucous membranes moist Respiratory/Chest: lungs clear Cardiovascular: normal rate Abdomen: soft, non tender Extremities: no edema Neurologic/Psychiatric: other - sleeping Laboratory Tests Test 02/11/19 05:58 White Blood Count 12.3 K/UL (4.8-10.8) H Red Blood Count 3.45 M/UL (4.70-6.10) L Hemoglobin 11.0 G/DL (14.2-18.0) L Hematocrit 31.4 % (42.0-52.0) L Mean Corpuscular Volume 91 FL (80-99) Mean Corpuscular Hemoglobin 31.8 PG (27.0-31.0) H Mean Corpuscular Hemoglobin Concent 35.0 G/DL (32.0-36.0) Red Cell Distribution Width 15.4 % (11.6-14.8) H Platelet Count 254 K/UL (150-450) Mean Platelet Volume 6.0 FL (6.5-10.1) L Neutrophils (%) (Auto) 75.3 % (45.0-75.0) H Lymphocytes (%) (Auto) 8.6 % (20.0-45.0) L Monocytes (%) (Auto) 9.3 % (1.0-10.0) Eosinophils (%) (Auto) 5.1 % (0.0-3.0) H Basophils (%) (Auto) 1.7 % (0.0-2.0) Sodium Level 136 MMOL/L (136-145) Potassium Level 4.7 MMOL/L (3.5-5.1) Chloride Level 104 MMOL/L (98-107) Carbon Dioxide Level 26 MMOL/L (21-32) Anion Gap 6 mmol/L (5-15) Blood Urea Nitrogen 18 mg/dL (7-18) Creatinine 1.2 MG/DL (0.55-1.30) Estimat Glomerular Filtration Rate mL/min (>60) Glucose Level 139 MG/DL (74-106) H Calcium Level 8.1 MG/DL (8.5-10.1) L Current Medications Medications (Trade) Dose Ordered Sig/Jarrod Route PRN Reason Start Time Stop Time Status Last Admin Dose Admin Amlodipine Besylate (Norvasc) 10 mg DAILY ORAL 02/03/19 09:15 03/05/19 09:14 02/11/19 08:27 Dextrose (Dextrose 50%) 25 ml Q30M PRN IV Hypoglycemia 01/27/19 19:00 02/26/19 18:59 02/07/19 23:44 Dextrose (Dextrose 50%) 50 ml Q30M PRN IV Hypoglycemia 01/27/19 19:00 02/26/19 18:59 Dextrose/ Electrolytes 1,000 ml @ 75 mls/hr [id number] IV 02/08/19 14:00 03/10/19 13:59 02/10/19 05:14 Epoetin Juwan (Epoetin Juwan-EPBX(NON ESRD)) 8,000 unit FRI-FRI-FRI SUBQ 02/08/19 21:00 03/10/19 20:59 02/10/19 21:06 Gemfibrozil (Lopid) 600 mg TWICE A DAY GT 02/04/19 18:00 03/06/19 17:59 02/11/19 08:27 Heparin Sodium (Porcine) (Heparin 5000 units/ml) 5,000 units EVERY 12 HOURS SUBQ 01/27/19 21:00 02/26/19 20:59 02/11/19 08:27 Insulin Aspart (NovoLOG) Q6HR SUBQ 02/04/19 00:00 02/26/19 20:59 02/11/19 12:09 Lansoprazole (Prevacid) 30 mg BID GT 02/10/19 18:00 03/12/19 17:59 02/11/19 08:27 Metoclopramide HCl (Reglan) 5 mg Q6H PRN IVP Nausea & Vomiting 02/04/19 15:14 03/06/19 15:13 Ondansetron HCl (Zofran) 4 mg Q6H PRN IVP Nausea & Vomiting 02/03/19 09:15 03/05/19 09:14 02/05/19 14:45 Gerald Conway MD February 11, 2019 12:16"
--- NOTE | 2019-02-11 14:28 | NUR ---
RD ASSESSMENT & RECOMMENDATIONS SEE CARE ACTIVITY FOR COMPLETE ASSESSMENT DAILY ESTIMATED NEEDS: Needs based on UnderweighT/ 49.5kg 30-35 kcals/kg 2058-6590 total kcals 1-1.5 g protein/kg 50-74 g total protein 25-30 mL/kg 6819-3014 total fluid mLs NUTRITION DIAGNOSIS: * Increased kcal and pro needs r/t underweight status as evidenced by pt @74% [place] Body Weight, BMI underweight per guidelines. * Swallowing difficulty R/T dysphagia as evidenced by pt is PEG dep CURRENT TF:Glucerna 1.5 @ 50ml/hr x 24 hrs ->104% est kcal, 134% est prot needs ENTERAL NUTRITION RECOMMENDATIONS: Glucerna 1.2 @ 55ml/hr x 24 hrs to provide 1320ml, 1584kcal, 79g prot, 1063ml free water * Rec TF change to Glucerna 1.2 for more free water -> dehydration dx, requiring IVF * Rec initiate Glucerna 1.2 @ 25ml/hr x 6 hrs, advance 10ml q 4-6 hrs as tolerated to goal rate. * HOB over 30 degrees/ water flush per MD ADDITIONAL RECOMMENDATIONS: * Per [facility], HT: 5'7", WT: 109#. * CALIBRATED BEDSCALE WT (w/added P200 mattress), weekly wts * Monitor lytes, replete as needed * Rec to DC D5 IVF to prevent hyperglycemia- now w/ TF @ goal. . . .
--- NOTE | 2019-02-11 14:36 | Surgery Progress Note ---
Surgery Progress Note Subjective Additional Comments leukocytosis. exam unchanged. comfortable. no complaints. no n/v/f/c. Objective Last 24 Hour Vital Signs Date Time Temp Pulse Resp B/P (MAP) Pulse Ox O2 Delivery O2 Flow Rate FiO2 02/11/19 12:00 97.9 88 18 142/74 (96) 98 02/11/19 09:00 Room Air 02/11/19 08:27 90 150/68 02/11/19 08:00 98.0 90 18 150/68 (95) 99 02/11/19 04:00 98.2 88 18 157/66 (96) 100 02/11/19 00:00 98.8 83 18 149/59 (89) 100 02/10/19 21:00 Room Air 02/10/19 20:00 98.2 85 18 92/56 (68) 100 02/10/19 16:00 98.4 82 22 141/61 (87) 99 I&O Intake and Output 02/10/19 02/11/19 19:00 07:00 Intake Total 800 ml 950 ml Output Total 600 ml 700 ml Balance 200 ml 250 ml Intake Free Water 200 ml 400 ml Tube Feeding 600 ml 550 ml Output Urine Total 600 ml 700 ml # Voids 4 3 # Bowel Movements 5 1 Wound: clean Drains: other Cardiovascular: RSR Respiratory: clear Abdomen: soft, present bowel sounds, non-distended Extremities: no tenderness, no cyanosis Laboratory Tests Test 02/11/19 05:58 White Blood Count 12.3 K/UL (4.8-10.8) H Red Blood Count 3.45 M/UL (4.70-6.10) L Hemoglobin 11.0 G/DL (14.2-18.0) L Hematocrit 31.4 % (42.0-52.0) L Mean Corpuscular Volume 91 FL (80-99) Mean Corpuscular Hemoglobin 31.8 PG (27.0-31.0) H Mean Corpuscular Hemoglobin Concent 35.0 G/DL (32.0-36.0) Red Cell Distribution Width 15.4 % (11.6-14.8) H Platelet Count 254 K/UL (150-450) Mean Platelet Volume 6.0 FL (6.5-10.1) L Neutrophils (%) (Auto) 75.3 % (45.0-75.0) H Lymphocytes (%) (Auto) 8.6 % (20.0-45.0) L Monocytes (%) (Auto) 9.3 % (1.0-10.0) Eosinophils (%) (Auto) 5.1 % (0.0-3.0) H Basophils (%) (Auto) 1.7 % (0.0-2.0) Sodium Level 136 MMOL/L (136-145) Potassium Level 4.7 MMOL/L (3.5-5.1) Chloride Level 104 MMOL/L (98-107) Carbon Dioxide Level 26 MMOL/L (21-32) Anion Gap 6 mmol/L (5-15) Blood Urea Nitrogen 18 mg/dL (7-18) Creatinine 1.2 MG/DL (0.55-1.30) Estimat Glomerular Filtration Rate mL/min (>60) Glucose Level 139 MG/DL (74-106) H Calcium Level 8.1 MG/DL (8.5-10.1) L Plan Problems: (1) Decubitus skin ulcer Assessment & Plan: Hyperpigmentation from previous pressure injury noted to sacrum with areas of dry brown skin pigmentation without erythema or induration.Non-tender when palpated.Erythema with excoriation noted to perianal area. Brown skin pigmentations noted to R and L ischial areas..Erythema noted to urinary meatus.Pt complained of burning .Moisture Barrier applied. Both heels are soft but blanchable. Pt denied pain or tenderness when each heel minimally palpated. No other areas of skin concerns noted. Educated pt on wound prevention.Encouraged to frequently shift and off-lift buttocks while repositioning. Encouraged to keep heels off-loaded with pillow. Tx.Plan: Apply Moisture Barrier to Vielka-Anal area. Scrotum and both ischail areas with each Incontinence care. Apply Moisture Barrier to Sacrum. Cover with Optifoam drsg. Change every 3 days and prn. Apply Cavilon Skin Barrier to both heels. Cover each heel with Optifoam drsg. Change every 7 days and prn. Encourage and assist as needed with repositioning at least every 2 hours or as tolerated. Off-load heels with pillow. (2) UTI (urinary tract infection) (3) Hyperkalemia (4) Renal insufficiency (5) Occult blood in stools (6) Duodenal ulcer Assessment & Plan: on PPI next EGD as per GI today will follow with recs (7) Dehydration (8) Infection (9) Duodenitis (10) Coffee ground emesis (11) G tube feedings (12) Sepsis due to pneumonia (13) aspiration p (14) Anthony Lieca February 11, 2019 14:36
[2019-02-11 16:00] VITALS: BP 136/80
[2019-02-11] MEDS ORDERED: Tubing IV Secondary IV ONE (16:53)
--- NOTE | 2019-02-11 17:00 | NUR ---
NURSE NOTES: pt has discharge order. all D/C assessments and instructions done. pt is stable. V/S stable. pt has L HEEL redness, treatment done as order. ESBL URINE is colonized by Dr pope. bed bath given to pt. given report to JORGE WOODWARD in SNF. Pt left hospital with accompany of ambulance personnel.
--- NOTE | 2019-02-12 15:52 | Discharge Summary ---
Discharge Summary Discharge Summary _ DATE OF ADMISSION: 01/27/2019 DATE OF DISCHARGE: 02/11/2019 DISCHARGED BY: Dr. Ann López CONSULTANTS: Dr. Len Velazquez BRIEF HOSPITAL COURSE: Patient is an 83-year-old [place] [facility], who was sent to [place] due to grossly abnormal laboratory results, which had elevated BUN and creatinine and abnormal sodium and potassium. Patient was demented and was unable to give any further information. He has medical history significant for recurrent urosepsis, organic brain syndrome, GERD, CKD and type 2 diabetes mellitus. On evaluation at the ED, vital signs were stable. Blood work showed WBC of 15, hemoglobin 10, hematocrit 31. Urinalysis showed 3+ leukocyte esterase, 10-15 RBC, too many to count WBC. Chest x-ray showed left lower lobe atelectasis as read by ED physician. He was started on IV Rocephin. He was admitted due to recurrent urosepsis and renal insufficiency. Blood work showed sodium of 132, potassium 5.9. BUN was elevated to 56, creatinine 1.9. He was given IV hydration. He was continued on IV Rocephin. Potassium level went up to 6.3. He was given Kayexalate. Urine culture showed growth of Proteus ESBL and Klebsiella. ID was consulted. He was continued on Levaquin. He was noted to come in with sacral decubitus. He was noted to have high risk for developing wounds. Surgeon was called to evaluate and assist with care and management. Skin assessment was done. Patient had hyperpigmentation from previous pressure injury noted to the sacrum area. There was erythema and excoriation to the perianal area. Brown skin pigmentations to the right and left ischial areas. Erythema to the urinary meatus. Both heels were soft and blanchable. Patient was educated on wound prevention. Encouraged to frequently shift and lift off buttocks while repositioning. Encouraged to keep heels off -loaded with pillow. He was given skin/wound care. On 02/04/2019, he had episode of coffee-ground vomiting. GI was consulted. Tube feeding was placed on hold. Feeding was restarted the following day. He was given Reglan. KUB was negative. Amylase and lipase were normal. Triglyceride was elevated to 269. He was given Lopid. On 02/05/2019, hemoglobin dropped to 6.9, hematocrit 21. Anemia work-up showed serum iron 105, TIBC 234, %saturation of 45. He was given proton pump inhibitors twice daily. He was given 2 units packed RBC transfusion. Stool OB was positive. He then had episodes of hypokalemia. He was given potassium supplements. He completed antibiotic course. He was taken off antibiotics. On 02/09/2019, he underwent EGD. Results showed evidence of gastritis. Patient had minimal distal esophagitis. There was no obvious active bleeding seen. G-tube tube was seen to be deflating and getting loaded. G-tube was replaced with a 20 Maldivian balloon type. He tolerated procedure well. He was restarted on G-tube feeds. He was recommended to continue on PPI. Hemoglobin levels stabilized. Potassium levels normalized. Kidney function normalized. Pathology result from EGD was negative for H. pylori. [facility] FINAL DIAGNOSES: Proteus ESBL/ Klebsiella UTI Hyponatremia Hyperkalemia Hypo-kalemia Severe iron deficiency, required 2 units packed RBC blood transfusion Diabetes mellitus type 2 Hypertension Status post EGD and G-tube replacement on 02/09/2019 Gastritis/GERD Minimal esophagitis G-tube feeding CKD Organic brain syndrome Stage II decubitus ulcer of the sacrum, present on admission DISPOSITION: Patient was discharged to a SNF. DISCHARGE MEDICATIONS: Refer to Discharge Medication List. I have been assigned to complete a discharge summary on this account, I was not involved with the patient's management. Dulce Gonzalez NP February 12, 2019 15:52
== END 2019-02-11 16:54 | DRG 690 ==
LOC: EDBD 13:10 → EMR 13:49 → 4E 13:51 → EDBEDREQ 13:56 → 4E 15:00 → OBSVTOIN 23:29 → 4E 01-30 09:43
PROC: 30233N1 Transfusion of Nonautologous Red Blood Cells into Peripheral Vein, Percutaneous Approach (ICD-10-PCS; principal; 2019-02-05)
PROC: 0DH63UZ Insertion of Feeding Device into Stomach, Percutaneous Approach (ICD-10-PCS; 2019-02-09 13:36)
PROC: 0DB78ZX Excision of Stomach, Pylorus, Via Natural or Artificial Opening Endoscopic, Diagnostic (ICD-10-PCS; 2019-02-09 13:36)
DX: N39.0 Urinary tract infection, site not specified (principal); E87.1 Hypo-osmolality and hyponatremia; Z43.1 Encounter for attention to gastrostomy; B96.20 Unspecified Escherichia coli [E. coli] as the cause of diseases classified elsewhere; Z16.12 Extended spectrum beta lactamase (ESBL) resistance; F09 Unspecified mental disorder due to known physiological condition; E87.5 Hyperkalemia; B96.4 Proteus (mirabilis) (morganii) as the cause of diseases classified elsewhere; K21.9 Gastro-esophageal reflux disease without esophagitis; N18.9 Chronic kidney disease, unspecified; E11.22 Type 2 diabetes mellitus with diabetic chronic kidney disease; I12.9 Hypertensive chronic kidney disease with stage 1 through stage 4 chronic kidney disease, or unspecified chronic kidney disease; Z79.4 Long term (current) use of insulin; B96.1 Klebsiella pneumoniae [K. pneumoniae] as the cause of diseases classified elsewhere; Z86.73 Personal history of transient ischemic attack (TIA), and cerebral infarction without residual deficits; K26.9 Duodenal ulcer, unspecified as acute or chronic, without hemorrhage or perforation; E86.0 Dehydration; K29.80 Duodenitis without bleeding; K29.70 Gastritis, unspecified, without bleeding; K20.9 Esophagitis, unspecified; D50.9 Iron deficiency anemia, unspecified; L89.152 Pressure ulcer of sacral region, stage 2
CPT/HCPCS: 36415; 71045; 74018; 80048; 80053; 80061; 81003; 82150; 82270; 82550; 82553; 82962; 83540; 83550; 83690; 83735; 84100; 84132; 84484; 85007; 85025; 85610; 85730; 86850; 86900; 86901; 86920; 87086; 87181; 93005; 94003; 94150; 96361; 96365; 96367; 99285; J1815; J2250; J2405; J8499

== ENCOUNTER 2019-02-16 11:25 | Inpatient (IN) | payer MEDICARE, OTHER ==
[~2019-02-16] VITALS: Ht 172.7 cm; Wt 57.2 kg
--- NOTE | 2019-02-16 11:24 | NUR ---
ED Nurse Note: Pt brought to ED from [facility] via [facility], c/o abnormal labs K+ 7.3. Pt is A&Ox1, self. Pt denies pain.
[~2019-02-16 11:25] MED LIST changes: +FERROUS SU220 MG/53 GT; +NORVASC10 MG ORAL; +PROCRIT10000 UNIT SUBQ
[2019-02-16 11:28] VITALS: BP 128/65
[2019-02-16 12:16] LABS: APPEARANCE,URINE CLEAR; BILIRUBIN, URINE NEGATIVE (NEGATIVE); COLOR,URINE PALE YELLOW; GLUCOSE, URINE (UA) NEGATIVE (NEGATIVE); KETONES,URINE NEGATIVE (NEGATIVE); LEUKOCYTE ESTERASE ,URINE 1+ (NEGATIVE); NITRITE,URINE NEGATIVE (NEGATIVE); PH,URINE 8 (4.5-8.0); PROTEIN,URINE 3+ (NEGATIVE); UROBILINOGEN,URINE NORMAL MG/DL (0.0-1.0)
[2019-02-16 12:17] LABS: BASOPHILS % (AUTO) 1.3 % (0.0-2.0); EOSINOPHILS % (AUTO) 4.1 % (0.0-3.0); HEMATOCRIT 38.9 % (42.0-52.0); HEMOGLOBIN 12.7 G/DL (14.2-18.0); LYMPHOCYTES % (AUTO) 9.2 % (20.0-45.0); MEAN CORPUSCULAR VOLUME 93 FL (80-99); NEUTROPHILS % (AUTO) 79.4 % (45.0-75.0); PLATELET COUNT 208 K/UL (150-450); RED CELL DISTRIBUTION WIDTH 15.2 % (11.6-14.8); WHITE BLOOD COUNT 11.3 K/UL (4.8-10.8)
[2019-02-16 12:34] LABS: ALANINE AMINOTRANSFERASE 17 U/L (12-78); ALBUMIN 3.2 G/DL (3.4-5.0); ALBUMIN/GLOBULIN RATIO 0.6 (1.0-2.7); ALKALINE PHOSPHATASE 75 U/L (46-116); ANION GAP 7 mmol/L (5-15); ASPARTATE AMINO TRANSFERASE 36 U/L (15-37); BILIRUBIN,TOTAL 0.4 MG/DL (0.2-1.0); BLOOD UREA NITROGEN 59 mg/dL (7-18); CALCIUM 9.7 MG/DL (8.5-10.1); CARBON DIOXIDE 26 MMOL/L (21-32); CHLORIDE 95 MMOL/L (98-107); CREATININE 1.5 MG/DL (0.55-1.30); POTASSIUM 8.1 MMOL/L (3.5-5.1); SODIUM 127 MMOL/L (136-145)
--- NOTE | 2019-02-16 12:39 | NUR ---
ED Nurse Note: INFORMED DR. HERNANDEZ PT.'S CL OF POTASSIUM 8.1
[2019-02-16 12:45] VITALS: BP 125/60
--- NOTE | 2019-02-16 12:55 | Emergency Room Report ---
History of Present Illness General Chief Complaint: Abnormal Labs Source: Patient, EMS Present Illness HPI This patient presents from a group home facility for hyperkalemia. The patient underwent routine labs and was found to have an elevated potassium. She presents here for further evaluation. The patient has a history of dementia and is unable to give any type of history. She has no specific complaints. Allergies: Coded Allergies: No Known Allergies (Verified , 12/28/06) Patient History Past Medical History: see triage record, DM, HTN, GERD, dementia Past Surgical History: other - PEG Social History: Denies: smoking, alcohol use, drug use Reviewed Nursing Documentation: PMH: Agreed; PSxH: Agreed Nursing Documentation-PMH Past Medical History Deferred: No Family Available Past Medical History: No Stated History Hx Cardiac Problems: Yes Hx Hypertension: Yes Hx Diabetes: Yes Hx Cancer: No Hx Gastrointestinal Problems: Yes Hx Dialysis: No - CKD, ARF Hx Neurological Problems: Yes Hx Cerebrovascular Accident: Yes Hx Neurologic Surgery: No Review of Systems All Other Systems: negative except mentioned in HPI Physical Exam Vital Signs Date Time Temp Pulse Resp B/P (MAP) Pulse Ox O2 Delivery O2 Flow Rate FiO2 02/16/19 11:12 97.9 88 19 97 Room Air 02/16/19 11:28 128/65 Sp02 EP Interpretation: reviewed, normal General Appearance: no apparent distress, alert, GCS 15, non-toxic Head: normocephalic, atraumatic ENT: hearing grossly normal, normal pharynx, no angioedema, normal voice Respiratory: chest non-tender, lungs clear, normal breath sounds, no respiratory distress, no retraction, no accessory muscle use, speaking full sentences Cardiovascular #1: regular rate, rhythm, no edema Gastrointestinal: normal bowel sounds, non tender, soft, non-distended, no guarding, no rebound Rectal: deferred Musculoskeletal: back normal, normal range of motion, non-tender Neurologic: alert, responsive, grossly normal Psychiatric: mood/affect normal, no suicidal/homicidal ideation Skin: warm/dry, well hydrated, other - See RN skin exam Medical Decision Making Diagnostic Impression: Primary Impression: Hyperkalemia Additional Impression: History of ATN ER Course This patient was found to have critically high potassium. Possibly this is from acute tubular necrosis. The patient's BUN/creatinine are not significantly elevated. I did give the patient insulin, glucose, albuterol, calcium gluconate and Kayexalate. She is admitted as she may need dialysis to bring down her potassium. She is high risk for pathologic cardiac arrhythmias. This patient is critically ill. This patient required complex medical decision- making, aggressive intervention, extensive laboratory workup and monitoring. Critical care time: 40 minutes. Laboratory Tests Test 02/16/19 11:30 02/16/19 12:00 02/16/19 13:07 White Blood Count 11.3 K/UL (4.8-10.8) H Red Blood Count 4.20 M/UL (4.70-6.10) L Hemoglobin 12.7 G/DL (14.2-18.0) L Hematocrit 38.9 % (42.0-52.0) L Mean Corpuscular Volume 93 FL (80-99) Mean Corpuscular Hemoglobin 30.3 PG (27.0-31.0) Mean Corpuscular Hemoglobin Concent 32.7 G/DL (32.0-36.0) Red Cell Distribution Width 15.2 % (11.6-14.8) H Platelet Count 208 K/UL (150-450) Mean Platelet Volume 7.1 FL (6.5-10.1) Neutrophils (%) (Auto) 79.4 % (45.0-75.0) H Lymphocytes (%) (Auto) 9.2 % (20.0-45.0) L Monocytes (%) (Auto) 6.0 % (1.0-10.0) Eosinophils (%) (Auto) 4.1 % (0.0-3.0) H Basophils (%) (Auto) 1.3 % (0.0-2.0) Sodium Level 127 MMOL/L (136-145) L Potassium Level 8.1 MMOL/L (3.5-5.1) *H 7.9 MMOL/L (3.5-5.1) *H Chloride Level 95 MMOL/L (98-107) L Carbon Dioxide Level 26 MMOL/L (21-32) Anion Gap 7 mmol/L (5-15) Blood Urea Nitrogen 59 mg/dL (7-18) H Creatinine 1.5 MG/DL (0.55-1.30) H Estimate Glomerular Filtration Rate mL/min (>60) Glucose Level 114 MG/DL (74-106) H Calcium Level 9.7 MG/DL (8.5-10.1) Total Bilirubin 0.4 MG/DL (0.2-1.0) Aspartate Amino Transferase (AST) 36 U/L (15-37) Alanine Aminotransferase (ALT) 17 U/L (12-78) Alkaline Phosphatase 75 U/L (46-116) Total Protein 8.7 G/DL (6.4-8.2) H Albumin 3.2 G/DL (3.4-5.0) L Globulin 5.5 g/dL Albumin/Globulin Ratio 0.6 (1.0-2.7) L Urine Color Pale yellow Urine Appearance Clear Urine pH 8 (4.5-8.0) Urine Specific [place] 1.010 (1.005-1.035) Urine Protein 3+ (NEGATIVE) H Urine Glucose (UA) Negative (NEGATIVE) Urine Ketones Negative (NEGATIVE) Urine Blood 4+ (NEGATIVE) H Urine Nitrite Negative (NEGATIVE) Urine Bilirubin Negative (NEGATIVE) Urine Urobilinogen Normal MG/DL (0.0-1.0) Urine Leukocyte Esterase 1+ (NEGATIVE) H Urine RBC 20-30 /HPF (0 - 0) H Urine WBC 0-2 /HPF (0 - 0) Urine Squamous Epithelial Cells Occasional /LPF Urine Bacteria Occasional /HPF (NONE) EKG Diagnostic Results Rate: normal Rhythm: NSR ST Segments: other - Slightly peaked T-waves Rhythm Strip Diag. Results EP Interpretation: yes Rate: 70's Rhythm: NSR, no PVC's, no ectopy Last Vital Signs Date Time Temp Pulse Resp B/P (MAP) Pulse Ox O2 Delivery O2 Flow Rate FiO2 02/16/19 11:28 97.8 88 18 128/65 97 Room Air Disposition: ADMITTED INPATIENT Condition: Critical Referrals: Ann López MD (PCP) Suzi Haynes DO February 16, 2019 12:55
--- NOTE | 2019-02-16 13:10 | NUR ---
ED Nurse Note: RN collected blood sample for repeat potassium level using venipuncture 23g. Patient tolerated the procedure without difficulty. Applied clean,dry dressing.
--- NOTE | 2019-02-16 13:42 | NUR ---
ED Nurse Note: Critical labs recieved, notified Dr. Haynes. Awaiting orders
[2019-02-16] MEDS ORDERED: Insulin Human Regular 100units/ml 3ml IV ONE (13:45)
[2019-02-16] MEDS ORDERED: Albuterol ud Inhalation HHN ONE (13:45)
[2019-02-16] MEDS ORDERED: Calcium Gluconate 10% 1 GM in NS 110 ML IVPB ONE (13:45)
[2019-02-16] MEDS ORDERED: Sodium Polystyrene Sulfonate 15gm Powder ORAL ONE (14:00)
--- NOTE | 2019-02-16 14:15 | NUR ---
ED Nurse Note: Confirmed with Dr. Haynes and ordered to administer Kayexalete via G-tube instead of orally.
--- NOTE | 2019-02-16 15:15 | NUR ---
ED Nurse Notes: Unable to upload wound pictures at this time, camera malfunction
--- NOTE | 2019-02-16 15:33 | NUR ---
TRANSFER TO FLOOR: Patient transferred to as ordered, per Dr Haynes. Report given to Ed. Family and or S/O informed of transfer.
--- NOTE | 2019-02-16 15:35 | NUR ---
ED Nurse Note: Left AC iv site no signs of redness or infiltration
--- NOTE | 2019-02-16 15:35 | NUR ---
NURSE NOTES: Report received from Eileen. Patient arrived on 1535. Patient was nonverbal. Patient is awake and alert. Patient is on 2L NC. Patient is breathing even and unlabored. Patient has g-tube with intact dressing. Patient has left AC 20g with blood return, patent, intact, and dry. Patient has partial thickness wound on sacral. Patient has contracted fingers and toes. Patient has ecchymosis on b/l forearms and hands. Will follow up with plan of care.
--- NOTE | 2019-02-16 16:15 | NUR ---
NURSE NOTES: Received orders from Dr. Disla. Dr. Disla is aware of Na 127 and Potassium 7.9.
--- NOTE | 2019-02-16 19:26 | NUR ---
HAND-OFF: Report given to Vangie. Patient is on RA, breathing even and unlabored. Patient is on heart monitor per protcol. Patient is able to speak in ukrainian needs but unable to answer questions. Patient is alert. Patient has left AC that is intact and patent. Setup Nepro 35ml/hr.
--- NOTE | 2019-02-16 19:38 | NUR ---
NURSE NOTES: Received report from JORGE Ward. Patient is awake lying semi-barry's; resting comfortably. No signs of acute distress or pain noted at this time. AOX1; able to verbalize needs to a very limited degree. Checked IV site, lines, and IV rate; patent and running. No erythema, bleeding, or infiltration noted. G-tube flushed and auscultated; patent. Wound dressing dry and intact. Bed at lowest position, brakes on, siderails up x3. Call light within reach. Will continue to monitor.
[2019-02-16 20:00] VITALS: BP 131/67
--- NOTE | 2019-02-16 20:47 | NUR ---
NURSE NOTES: Paged Dr. López to inform him that patient's potassium level is now 6.0 from 7.9. No new orders received.
[2019-02-16] MEDS: Heparin 5000 units/ml inj SUBQ SCH (21:56)
[2019-02-17] VITALS: BP 133/68
[2019-02-17 04:00] VITALS: BP 130/59
--- NOTE | 2019-02-17 04:54 | NUR ---
NURSE NOTES: Patient is asleep lying semi-barry's; resting comfortably. No signs of acute distress or pain noted at this time. Nepro running at 20 mls/hr for a goal of 35 mls/hr.
[2019-02-17 06:36] LABS: BASOPHILS % (AUTO) 1.5 % (0.0-2.0); EOSINOPHILS % (AUTO) 3.4 % (0.0-3.0); HEMATOCRIT 35.5 % (42.0-52.0); HEMOGLOBIN 11.8 G/DL (14.2-18.0); LYMPHOCYTES % (AUTO) 10.6 % (20.0-45.0); MEAN CORPUSCULAR VOLUME 93 FL (80-99); MONOCYTES % (AUTO) 7.3 % (1.0-10.0); NEUTROPHILS % (AUTO) 77.2 % (45.0-75.0); PLATELET COUNT 473 K/UL (150-450); RED BLOOD COUNT 3.81 M/UL (4.70-6.10); RED CELL DISTRIBUTION WIDTH 15.6 % (11.6-14.8); WHITE BLOOD COUNT 10.8 K/UL (4.8-10.8)
[2019-02-17 07:03] LABS: ANION GAP 9 mmol/L (5-15); BLOOD UREA NITROGEN 55 mg/dL (7-18); CARBON DIOXIDE 26 MMOL/L (21-32); CHLORIDE 98 MMOL/L (98-107); CREATININE 1.6 MG/DL (0.55-1.30); POTASSIUM 5.2 MMOL/L (3.5-5.1); SODIUM 133 MMOL/L (136-145)
--- NOTE | 2019-02-17 07:32 | NUR ---
HAND-OFF: Report given to JORGE Cano. Patient is asleep lying semi-barry's; resting comfortably. In stable condition.
--- NOTE | 2019-02-17 07:39 | NUR ---
NURSE NOTES: Received report from JORGE Vences. Patient in bed resting, no active s/s cardiac, respiratory distress noticed at this time. Patient on room air, open eyes spontaneously and on verbal stimulus, SR with HR 87. Patient on G-tube feeding, tolerating. IV on left AC 20G, asymptomatic, patent, intact, IV fluid running at prescribed rate. Endorsed MD made aware of K level 6.0 and stated okay. Bed in lowest position, side rails upx3, call light within reach, bed alarm on. Will continue to monitor.
[2019-02-17 08:00] VITALS: BP 129/55
[2019-02-17] MEDS: Sodium Polystyrene Sulfonate 15gm Powder GT SCH (08:18)
[2019-02-17] MEDS: Heparin 5000 units/ml inj SUBQ SCH ×2 (08:19→21:50)
[2019-02-17 12:00] VITALS: BP 124/55
--- NOTE | 2019-02-17 14:21 | NUR ---
RD ASSESSMENT & RECOMMENDATIONS SEE CARE ACTIVITY FOR COMPLETE ASSESSMENT DAILY ESTIMATED NEEDS: Needs based on Underweight/ 51.6kg 30-35 kcals/kg 2850-1277 total kcals 1-1.5 g protein/kg 52-78 g total protein 25-30 mL/kg 1676-1167 total fluid mLs NUTRITION DIAGNOSIS: * Increased kcal and pro needs r/t underweight status as evidenced by pt @77% [place] Body Weight, BMI underweight per guidelines. * Swallowing difficulty R/T dysphagia as evidenced by pt is PEG dep * Altered nutrition related lab values R/T clinical condition, h/o ATN per MD as evidenced by critically elev K upon adm (8.1* -> 5.2 trend down) CURRENT TF:Nepro @ 35ml/hr x 24 hrs ENTERAL NUTRITION RECOMMENDATIONS: Nepro @ 40ml/hr x 24 hrs to provide 960ml, 1728kcal, 77g prot, 698ml free water * Increase goal rate to 40ml/hr x 24 hrs * HOB over 30 degrees/ water flush per MD ADDITIONAL RECOMMENDATIONS: * Calibrated bedscale wt for accurate BCW * Monitor K closely (critically elev K upon adm, improving at this time) * Monitor BGs closely, need for SSI- h/o DM * Rec Jermaine 1pkt BID for skin integrity -> f/up w/ WC eval . .
--- NOTE | 2019-02-17 15:34 | NUR ---
NURSE NOTES: Dr. Disla made aware patient has history DM but no accucheck and sliding scale. Per Dr. Disla, on sensitive sliding scale and accucheck q6h. Order noted, entered, carried out. Will continue to monitor.
[2019-02-17 16:00] VITALS: BP 146/57
--- NOTE | 2019-02-17 16:28 | NUR ---
CASE MANAGEMENT:REVIEW 83 YR OLD MALE BIBA FROM [facility] CC: ABNORMAL LABS...K+7.3 SI: HYPERKALEMIA 97.8 88 19 128/65 97% ON RA WBC+11.3 NA-127 K+8.1 BUN+59 CR+1.5 IS: IV CA GLUCONATE X1 ALBUTEROL HHN X1 IV D50 X1 IV INSULIN X1 KAYEXALATE PO X1 : TO TELEMETRY INTERQUAL CRITERIA MET
--- NOTE | 2019-02-17 16:30 | History and Physical Report ---
DATE OF ADMISSION: 02/16/2019 CHIEF COMPLAINT: Abnormal labs. HISTORY OF PRESENT ILLNESS: This is an 83-year-old [place] male from a [facility] who was sent because of potassium of more than 8. The patient has been admitted to this hospital numerous times. His [facility] called me after the potassium values of 8.2. The patient was sent to the emergency department. The patient is demented and unable to give any further information. He was discharged from this hospital last week. PAST MEDICAL HISTORY: 1. Recurrent GI bleed. 2. History of is esophagogastritis. 3. Chronic kidney disease, stage 3 to 4. 4. 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 5. Anemia of chronic kidney disease. 6. Type 2 diabetes mellitus. 7. Status post CVA. 8. Hypertensive cardiovascular disease. HOME MEDICATIONS: Insulin sliding scale, Prevacid, fenofibrate, Lantus, insulin aspart, NovoLog sliding scale, G-tube feeding with Glucerna. ALLERGIES: No known drug allergies. FAMILY HISTORY: Unable to obtain due to his mental status. SOCIAL HISTORY: Unable to obtain due to his mental status. REVIEW OF SYSTEMS: Unable to obtain due to his mental status. PHYSICAL EXAMINATION: GENERAL: This is an elderly cachectic [place] male who is in no acute distress. VITAL SIGNS: Blood pressure 124/55, pulse 74 and regular, respirations 18, and temperature is 97 Fahrenheit. HEENT: The head is normocephalic and atraumatic. He has very poor oral hygiene. NECK: Supple. Trachea midline. There is no lymphadenopathy or thyromegaly. LUNGS: Clear to auscultation and percussion bilaterally. HEART: Regular rate and rhythm without rubs, murmurs, or gallops. ABDOMEN: Soft and nontender. Bowel sounds were active. He has a G-tube. EXTREMITIES: Notable for advanced muscle wasting. NEUROLOGIC: He is alert, but confused. There were no gross focal findings. LABORATORY AND ANCILLARY DATA: On admission, sodium level 127, today 133; on admission, potassium 8.1, today after therapy 5.2; on admission, BUN 59, today 55; on admission creatinine was 1.5 and today 1.6; glucose today 112. Hemoglobin 11.8. Of note is that the renal ultrasound done 09/09/2018 already showed increased renal echogenicity bilaterally consistent with medical renal disease. ASSESSMENT: 1. 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 2. History of dysnatremia. 3. Recurrent GI bleed. 4. History of is esophagogastritis. 5. Chronic kidney disease, stage 3 to 4. 6. 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 7. Anemia of chronic kidney disease. 8. Type 2 diabetes mellitus. 9. Status post CVA. 10. Hypertensive cardiovascular disease. PLAN: 1. Correction with IV fluid rehydration. 2. The patient may qualify for chronic Kayexalate therapy. Ann López M.D. DR: BROOKE JOB#: [id number] CC:
[2019-02-17] MEDS: NovoLOG Insulin Flexpen SUBQ SCH ×2 (17:24→23:23)
--- NOTE | 2019-02-17 19:10 | NUR ---
NURSE NOTES: Received patient from Rachael PATEL. Patient in bed, on room air, no s/s of respiratory distress. Nepro at 35ml/hr. HOB elevated >30 degrees for aspiration precaution. Condom cath off. Patient on kayexalate with loose BM. Placed on air mattress. Repositioned patient for comfort. Bed in low position, locked, bed alarm on, call light within reach.
--- NOTE | 2019-02-17 19:15 | NUR ---
HAND-OFF: Report given to JORGE Mejía.
[2019-02-17] MEDS ORDERED: AMLODIPINE BESY10 MG GT (19:42)
[2019-02-17 20:00] VITALS: BP 113/59
--- NOTE | 2019-02-17 20:00 | NUR ---
NURSE NOTES: Patient in bed. On nepro 35ml/hr, 30ml of residual, will continue to monitor. IV on right AC #20 with NS infusing at 75ml/hr, no s/s of infection or infiltration.
--- NOTE | 2019-02-17 20:24 | Cardiology Report ---
APPROVED REPORT EKG Measurement Heart [id number] Normal sinus rhythm Possible Left atrial enlargement Right bundle branch block Left ventricular hypertrophy Abnormal ECG
[2019-02-18] VITALS: BP 126/64
--- NOTE | 2019-02-18 03:24 | NUR ---
NURSE NOTES: Received pt. and report from JORGE Mejía. Observed pt. asleep in bed with both eyes closed. patient monitor is in placed, IV site intact, asymptomatic, and patent. Bed is in the lowest position and locked. Call light within reach. Fall and aspiration precaution. HOB is at 30 degrees. No sign/symptoms of acute distress noted at this time. Will continue plan of care.
--- NOTE | 2019-02-18 03:27 | NUR ---
HAND-OFF: Report given to Gayle RN. Patient in stable condition, plan of care endorsed.
[2019-02-18 04:00] VITALS: BP 139/60
[2019-02-18] MEDS: NovoLOG Insulin Flexpen SUBQ SCH ×3 (06:08→17:15)
--- NOTE | 2019-02-18 07:55 | NUR ---
NURSE NOTES: Received report from JORGE Araujo. Patient is alert and oriented x2. Patient is in stable condition. No acute distress/SOB noted. Patient denies any pain/discomfort. Gtube is intact and running with Nepro 35ml/hr. Elevated HOB. Call-light placed in easy reach. Will continue plan of care.
[2019-02-18 08:00] VITALS: BP 149/66
[2019-02-18 08:14] LABS: BASOPHILS % (AUTO) 1.2 % (0.0-2.0); EOSINOPHILS % (AUTO) 4.6 % (0.0-3.0); HEMATOCRIT 30.7 % (42.0-52.0); HEMOGLOBIN 10.4 G/DL (14.2-18.0); LYMPHOCYTES % (AUTO) 9.7 % (20.0-45.0); MEAN CORPUSCULAR VOLUME 94 FL (80-99); MONOCYTES % (AUTO) 8.1 % (1.0-10.0); NEUTROPHILS % (AUTO) 76.4 % (45.0-75.0); PLATELET COUNT 444 K/UL (150-450); RED BLOOD COUNT 3.27 M/UL (4.70-6.10); RED CELL DISTRIBUTION WIDTH 15.7 % (11.6-14.8); WHITE BLOOD COUNT 9.8 K/UL (4.8-10.8)
[2019-02-18 08:35] LABS: ANION GAP 7 mmol/L (5-15); BLOOD UREA NITROGEN 46 mg/dL (7-18); CALCIUM 8.4 MG/DL (8.5-10.1); CARBON DIOXIDE 29 MMOL/L (21-32); CHLORIDE 104 MMOL/L (98-107); CREATININE 1.4 MG/DL (0.55-1.30); PHOSPHORUS 4.3 MG/DL (2.5-4.9); POTASSIUM 3.8 MMOL/L (3.5-5.1); SODIUM 140 MMOL/L (136-145)
[2019-02-18] MEDS: Heparin 5000 units/ml inj SUBQ SCH ×2 (08:52→21:44)
[2019-02-18] MEDS: Sodium Polystyrene Sulfonate 15gm Powder GT SCH (08:52)
--- NOTE | 2019-02-18 09:55 | NUR ---
DISCHARGE PLANNING MESSAGE LEFT FOR DR BARKLEY REGARDING DISCHARGE PLAN [employer] FAXED CLINICALS TO [facility] T: [phone] F: [phone]
[2019-02-18 12:00] VITALS: BP 143/74
--- NOTE | 2019-02-18 12:45 | NUR ---
NURSE NOTES: Seen by Dr. López. And notified K and Mg level.
--- NOTE | 2019-02-18 12:46 | Nephrology Progress Note ---
Assessment/Plan Plan Multiple electrolyte abnormalities - being corrected. See orders. Not ready for DC yet. RTA 4. Subjective Subjective Confused Objective Objective Last 24 Hour Vital Signs Date Time Temp Pulse Resp B/P (MAP) Pulse Ox O2 Delivery O2 Flow Rate FiO2 02/18/19 12:00 88 02/18/19 12:00 97.7 89 20 143/74 (97) 97 02/18/19 09:00 Room Air 02/18/19 08:00 97.7 86 19 149/66 (93) 99 02/18/19 08:00 83 02/18/19 04:00 86 02/18/19 04:00 97.7 84 19 139/60 (86) 100 02/18/19 00:00 97.0 88 20 126/64 (84) 99 02/17/19 23:46 81 02/17/19 21:00 Room Air 02/17/19 20:00 97.2 86 20 113/59 (77) 100 02/17/19 20:00 80 02/17/19 16:00 73 02/17/19 16:00 97.1 86 19 146/57 (86) 92 Intake and Output 02/17/19 02/18/19 19:00 07:00 Intake Total 35 ml 980 ml Output Total 300 ml Balance -265 ml 980 ml Intake Free Water 100 ml IV Total 600 ml Tube Feeding 35 ml 280 ml Output Urine Total 300 ml # Bowel Movements 1 Laboratory Tests 02/18/19 07:20: White Blood Count 9.8, Red Blood Count 3.27L, Hemoglobin 10.4L, Hematocrit 30.7L , Mean Corpuscular Volume 94, Mean Corpuscular Hemoglobin 31.7H, Mean Corpuscular Hemoglobin Concent 33.8, Red Cell Distribution Width 15.7H, Platelet Count 444, Mean Platelet Volume 4.9L, Neutrophils (%) (Auto) 76.4H, Lymphocytes (%) (Auto) 9.7L, Monocytes (%) (Auto) 8.1, Eosinophils (%) (Auto) 4.6H, Basophils (%) (Auto) 1.2, Sodium Level 140, Potassium Level 3.8, Chloride Level 104, Carbon Dioxide Level 29, Anion Gap 7, Blood Urea Nitrogen 46H, Creatinine 1.4H, Estimat Glomerular Filtration Rate , Glucose Level 133H, Calcium Level 8.4L, Phosphorus Level 4.3, Magnesium Level 1.6L Height (Feet): 5 Height (Inches): 8.00 Weight (Pounds): 125 Objective CV RR Lungs CTa Abd SNT. BS +PEG OK E No CCE Ann López MD February 18, 2019 12:46
[2019-02-18 16:00] VITALS: BP 150/68
--- NOTE | 2019-02-18 19:27 | NUR ---
HAND-OFF: Report given to JORGE Gaytan. Patient is in stable condition. Endorsed plan of care.
--- NOTE | 2019-02-18 19:30 | NUR ---
NURSE NOTES: received pt from JORGE Fernandez. pt in bed no acute distress noted. no c/o pain. bed locked and lowest position, bed side rail up x2, call light within reach. will round pt hourly to ensure pt's safety.
[2019-02-18 20:00] VITALS: BP 150/61
[2019-02-19] VITALS: BP 151/62
--- NOTE | 2019-02-19 | NUR ---
NURSE NOTES: pt sleeping, no acute distress noted. will continue to monitor for change in condition.
--- NOTE | 2019-02-19 03:00 | NUR ---
NURSE NOTES: pt in stable condition. no s/s of pain at this time. all needs met during my care. bed locked and lowest position, bedside rails upx2, call light within reach. will endorse pt to JORGE Sanders
--- NOTE | 2019-02-19 03:10 | NUR ---
NURSE NOTES: Received report from JORGE Gaytan. Patient in bed asleep , showing no signs of acute distress. Respiration even and non labored on room air. No sob noted. IV line patent and intact. GT patent and intact. 0 residual noted. Bed in lowest position, HOB 30 deg, wheels locked, and bed alarm on. Call light within reach. All needs attended and met. Will continue plan of care.
[2019-02-19 04:00] VITALS: BP 166/80
[2019-02-19] MEDS: NovoLOG Insulin Flexpen SUBQ SCH ×5 (06:09→23:16)
--- NOTE | 2019-02-19 07:01 | NUR ---
NURSE NOTES: Received report from JORGE Sanders. Patient is in stable condition. No acute distress/SOB noted. Patient denies any pain/discomfort at this time. GT intact and running Nepro 35ml/hr. IV site intact, clean and running 1/2NS 50ml/hr. Call-light placed in easy reach. Will continue plan of care.
--- NOTE | 2019-02-19 07:09 | NUR ---
HAND-OFF: Report given to JORGE Fernandez.
[2019-02-19 07:40] LABS: ANION GAP 5 mmol/L (5-15); BLOOD UREA NITROGEN 38 mg/dL (7-18); CALCIUM 9.4 MG/DL (8.5-10.1); CARBON DIOXIDE 30 MMOL/L (21-32); CHLORIDE 100 MMOL/L (98-107); CREATININE 1.3 MG/DL (0.55-1.30); POTASSIUM 3.2 MMOL/L (3.5-5.1); SODIUM 135 MMOL/L (136-145)
[2019-02-19 08:00] VITALS: BP 148/53
[2019-02-19] MEDS: Heparin 5000 units/ml inj SUBQ SCH ×2 (08:27→20:20)
[2019-02-19] MEDS: Sodium Polystyrene Sulfonate 15gm Powder GT SCH (08:47)
[2019-02-19 12:00] VITALS: BP 139/56
--- NOTE | 2019-02-19 12:21 | Nephrology Progress Note ---
Assessment/Plan Plan Multiple electrolyte abnormalities - being corrected. IVD DC'ed. Check labs tomorrow. See orders. Not ready for DC yet. RTA 4. Subjective Subjective Confused Objective Objective Last 24 Hour Vital Signs Date Time Temp Pulse Resp B/P (MAP) Pulse Ox O2 Delivery O2 Flow Rate FiO2 02/19/19 12:00 97.7 74 18 139/56 (83) 100 02/19/19 09:00 Room Air 02/19/19 08:00 73 02/19/19 08:00 98.1 74 18 148/53 (84) 98 02/19/19 04:00 67 02/19/19 04:00 97.5 81 18 166/80 (108) 94 02/19/19 00:00 97.5 80 17 151/62 (91) 97 02/19/19 00:00 70 02/18/19 21:00 Room Air 02/18/19 20:00 97.0 77 19 150/61 (90) 97 02/18/19 20:00 76 02/18/19 16:00 82 02/18/19 16:00 96.6 83 19 150/68 (95) 98 Intake and Output 02/18/19 02/19/19 19:00 07:00 Intake Total 635 ml Output Total 1300 ml Balance -665 ml IV Total 600 ml Tube Feeding 35 ml Output Urine Total 1300 ml # Bowel Movements 1 Laboratory Tests 02/19/19 06:47: Sodium Level 135L, Potassium Level 3.2L, Chloride Level 100, Carbon Dioxide Level 30, Anion Gap 5, Blood Urea Nitrogen 38H, Creatinine 1.3, Estimat Glomerular Filtration Rate , Glucose Level 145H, Calcium Level 9.4, Magnesium Level 2.6H, Renin [Pending], Aldosterone [Pending] Height (Feet): 5 Height (Inches): 8.00 Weight (Pounds): 130 Objective CV RR Lungs CTa Abd SNT. BS +PEG OK E No CCE Ann López MD February 19, 2019 12:21
--- NOTE | 2019-02-19 13:58 | NUR ---
NURSE NOTES:WOUND CARE FOLLOW-UP NOTES:Sacral area dry with pink epithelial. No erythema, indurated areas noted. Pt denied tenderness when sacral area palpated. Non-blanchable erythema without fluctuance noted to L heel .R heel pink and blanchable. Both heels non-tender when palpated. Moisture Barrier Paste applied to groin, scrotum and bilat ischial areas. Optifoam placed over sacral area. Cavilon Skin Barrier applied to each heel and each heel covered with Optifoam drsg and floated off bed with pillows. Tx.Plan:Apply Moisture Barrier Paste to Groin,scrotum and buttocks with each incontinence care. Cover Sacrum with Optifoam drsg. Change every 3 days and prn. Apply Cavilon Skin Barrier to both heels.Cover each heel with Optifoam drsg. Change every 7 days and prn. APM/RUTH ANN mattress overlay. Reposition at least every 2hours or as tolerated. Off-load heels with pillow.
--- NOTE | 2019-02-19 15:51 | NUR ---
RD ASSESSMENT & RECOMMENDATIONS SEE CARE ACTIVITY FOR COMPLETE ASSESSMENT DAILY ESTIMATED NEEDS: Needs based on Underweight/ 51.6kg 30-35 kcals/kg 9113-8766 total kcals 1-1.5 g protein/kg 52-78 g total protein 25-30 mL/kg 4346-7225 total fluid mLs NUTRITION DIAGNOSIS: * Increased kcal and pro needs r/t underweight status, wound healing as evidenced by pt @77% [place] Body Weight, BMI underweight per guidelines, admitted w/ lt heel non-blanchable erythema. * Swallowing difficulty R/T dysphagia as evidenced by pt is PEG dep * Altered nutrition related lab values R/T clinical condition, h/o ATN per MD as evidenced by critically elev K upon adm (8.1* -> 3.2 now low) CURRENT TF:Nepro @ 35ml/hr x 24 hrs ENTERAL NUTRITION RECOMMENDATIONS: Nepro @ 40ml/hr x 24 hrs to provide 960ml, 1728kcal, 77g prot, 698ml free water * Increase goal rate to 40ml/hr x 24 hrs * HOB over 30 degrees/ water flush per MD ADDITIONAL RECOMMENDATIONS: * Calibrated bedscale wt for accurate BCW * Monitor K closely (critically elev K upon adm, now low) * Rec Jermaine 1pkt BID for skin integrity * Continue renal formula of Nepro given h/o persistent elev K . . .
[2019-02-19 16:00] VITALS: BP 152/61
--- NOTE | 2019-02-19 18:09 | NUR ---
NURSE NOTES: Informed Dr. López that K=3.2 today. No replacement at this time. Will continue plan of care.
--- NOTE | 2019-02-19 19:03 | NUR ---
HAND-OFF: Report given to JORGE Gaytan. Patient is in stable condition. Endorsed plan of care.
--- NOTE | 2019-02-19 19:05 | NUR ---
NURSE NOTES: Received pt form JORGE Fernandez. pt in bed resting comfortable, no acute distress noted. gtube in place, receiving nepro 35ml/hr. no s/s of pain. bed locked and lowest position, bedside rails up x2. call light within reach. will round pt hourly to ensure pt's safety.
[2019-02-19 20:00] VITALS: BP 145/53
[2019-02-20] VITALS: BP 153/88
--- NOTE | 2019-02-20 | NUR ---
NURSE NOTES: pt in bed resting, no gtube feeding with no residual. will continue to monitor for change in condition.
[2019-02-20 04:00] VITALS: BP 158/63
--- NOTE | 2019-02-20 04:00 | NUR ---
NURSE NOTES: pt in room awake, gtube feeding infusing, no gtube feeding residuals, no change in condition. will continue to monitor for pt's safety.
[2019-02-20] MEDS: NovoLOG Insulin Flexpen SUBQ SCH ×3 (05:40→18:22)
--- NOTE | 2019-02-20 06:38 | NUR ---
NURSE NOTES: pt remains stable. no change in condition, all needs met during my shift. bed locked and lowest position, bedside rail up x2 times. call light within reach. will endorse care to incoming nurse.
--- NOTE | 2019-02-20 07:26 | NUR ---
HAND-OFF: Report given to JORGE Murillo.
--- NOTE | 2019-02-20 07:28 | NUR ---
NURSE NOTES: Received report from Lucila/RN, Patient resting on bed, No acute distress/SOB noted. Bed in low position and locked, Call light within reach. Will continue plan of care.
[2019-02-20 07:52] LABS: ANION GAP 5 mmol/L (5-15); BLOOD UREA NITROGEN 36 mg/dL (7-18); CALCIUM 8.6 MG/DL (8.5-10.1); CARBON DIOXIDE 32 MMOL/L (21-32); CHLORIDE 99 MMOL/L (98-107); CREATININE 1.2 MG/DL (0.55-1.30); POTASSIUM 2.9 MMOL/L (3.5-5.1); SODIUM 136 MMOL/L (136-145)
[2019-02-20 08:00] VITALS: BP 152/58
[2019-02-20] MEDS: Heparin 5000 units/ml inj SUBQ SCH ×2 (09:54→21:20)
--- NOTE | 2019-02-20 10:15 | NUR ---
NURSE NOTES: Blood pressure is 152/58. No scheduled or PRN B/P medication at this time. Dr. López is aware.
[2019-02-20] MEDS ORDERED: 1/2 NS 1000ml IV ONE (10:21)
--- NOTE | 2019-02-20 10:22 | Nephrology Progress Note ---
Assessment/Plan Plan Multiple electrolyte abnormalities - being corrected. IVD DC'ed. Check labs tomorrow. See orders. Not ready for DC yet. RTA 4. K low today -replaced. Subjective Subjective Confused Objective Objective Last 24 Hour Vital Signs Date Time Temp Pulse Resp B/P (MAP) Pulse Ox O2 Delivery O2 Flow Rate FiO2 02/20/19 08:00 96.7 77 20 152/58 (89) 99 02/20/19 04:00 98.6 76 20 158/63 (94) 96 02/20/19 04:00 81 02/20/19 00:00 97.8 72 18 153/88 (109) 98 02/20/19 00:00 67 02/19/19 21:00 Room Air 02/19/19 20:00 68 02/19/19 20:00 98.6 78 18 145/53 (83) 98 02/19/19 16:00 68 02/19/19 16:00 97.6 75 18 152/61 (91) 98 02/19/19 12:00 97.7 74 18 139/56 (83) 100 02/19/19 12:00 66 Intake and Output 02/19/19 02/20/19 18:59 06:59 Intake Total 470 ml 1181.25 ml Output Total 700 ml 650 ml Balance -230 ml 531.25 ml Intake Free Water 100 ml IV Total 50 ml 626.25 ml Tube Feeding 420 ml 455 ml Output Urine Total 700 ml 650 ml Laboratory Tests 02/20/19 05:35: Sodium Level 136, Potassium Level 2.9L, Chloride Level 99, Carbon Dioxide Level 32, Anion Gap 5, Blood Urea Nitrogen 36H, Creatinine 1.2, Estimat Glomerular Filtration Rate , Glucose Level 127H, Calcium Level 8.6 Height (Feet): 5 Height (Inches): 8.00 Weight (Pounds): 131 Objective CV RR Lungs CTa Abd SNT. BS +PEG OK E No CCE Ann López MD February 20, 2019 10:22
[2019-02-20 12:00] VITALS: BP 143/64
[2019-02-20 16:00] VITALS: BP 153/61
--- NOTE | 2019-02-20 19:10 | NUR ---
HAND-OFF: Report given to Roseanna/RN, Patient is resting on bed, no distress/SOB noted. Endorsed plan of care.
--- NOTE | 2019-02-20 19:28 | NUR ---
NURSE NOTES: Received a bed side report from JORGE Murillo.Patient stable,no c/o pain,no respiratory distress noted,SR w/BBB on diagnostic cardiac sonographer,GT running with Nepro@35 ml/hr flush 100ml Q 6hr,BS active in all quadrants,IV asymptomatic,intact on L wrist G 20 1/2 NS running @ 50 ml/hr,bed secured in a low safety position,call light within a reach.Will continue to monitor and follow per POC.
[2019-02-20 20:00] VITALS: BP 144/59
[2019-02-21] VITALS: BP 155/107
[2019-02-21] MEDS: NovoLOG Insulin Flexpen SUBQ SCH ×5 (00:16→23:18)
[2019-02-21 04:00] VITALS: BP 146/57
--- NOTE | 2019-02-21 07:13 | NUR ---
HAND-OFF: Report given to Eom,RN.Patient stable.
--- NOTE | 2019-02-21 07:17 | NUR ---
NURSE NOTES: Received report from JORGE Condon. Patient is in stable condition. Responsive to verbal. Patient denies any pain/discomfort at this time. Will continue plan of care.
[2019-02-21 08:00] VITALS: BP 148/58
[2019-02-21] MEDS ORDERED: 1/2 NS 1000ml IV ONE (08:06)
[2019-02-21 08:15] LABS: ANION GAP 4 mmol/L (5-15); BLOOD UREA NITROGEN 36 mg/dL (7-18); CALCIUM 8.8 MG/DL (8.5-10.1); CARBON DIOXIDE 31 MMOL/L (21-32); CHLORIDE 98 MMOL/L (98-107); CREATININE 1.2 MG/DL (0.55-1.30); POTASSIUM 3.3 MMOL/L (3.5-5.1); SODIUM 133 MMOL/L (136-145)
[2019-02-21] MEDS: Heparin 5000 units/ml inj SUBQ SCH ×2 (08:33→20:44)
--- NOTE | 2019-02-21 10:00 | NUR ---
NURSE NOTES: Seen by Dr. López and notified that K=3.3 and Na 133. Will continue plan of care.
--- NOTE | 2019-02-21 10:06 | Nephrology Progress Note ---
Assessment/Plan Plan Multiple electrolyte abnormalities - being corrected. IVD DC'ed. Check labs tomorrow. See orders. Not ready for DC yet. RTA 4. K low today -replaced. Subjective Subjective Confused Objective Objective Last 24 Hour Vital Signs Date Time Temp Pulse Resp B/P (MAP) Pulse Ox O2 Delivery O2 Flow Rate FiO2 02/21/19 09:00 Room Air 02/21/19 08:28 76 148/58 02/21/19 08:00 76 02/21/19 08:00 98.0 76 16 148/58 (88) 98 02/21/19 04:00 97.8 75 20 146/57 (86) 99 02/21/19 03:54 73 02/21/19 00:00 70 02/21/19 00:00 98.6 78 20 155/107 (123) 96 02/20/19 23:34 70 02/20/19 21:00 Room Air 02/20/19 20:00 97.0 70 20 144/59 (87) 99 02/20/19 16:00 96.5 71 20 153/61 (91) 98 02/20/19 16:00 71 02/20/19 12:00 96.4 77 20 143/64 (90) 99 02/20/19 11:49 74 Intake and Output 02/20/19 02/21/19 19:00 07:00 Intake Total 85 ml 1104.2 ml Balance 85 ml 1104.2 ml Intake Free Water 200 ml IV Total 50 ml 519.2 ml Tube Feeding 35 ml 385 ml # Voids 1 3 # Bowel Movements 1 Laboratory Tests 02/21/19 06:25: Sodium Level 133L, Potassium Level 3.3L, Chloride Level 98, Carbon Dioxide Level 31, Anion Gap 4L, Blood Urea Nitrogen 36H, Creatinine 1.2, Estimat Glomerular Filtration Rate , Glucose Level 133H, Calcium Level 8.8 Height (Feet): 5 Height (Inches): 8.00 Weight (Pounds): 135 Objective CV RR Lungs CTa Abd SNT. BS +PEG OK E No CCE Ann López MD February 21, 2019 10:06
[2019-02-21 12:00] VITALS: BP 152/60
--- NOTE | 2019-02-21 13:43 | NUR ---
CASE MANAGEMENT: REVIEW 02/21/2019 SI: HYPERKALEMIA T 98.1 HR 82 RR 16 B/P 152/60 SATS 98% ON RA NA 133 K 3.3 BUN 36 GLU 133 IS: NORVASC PO QD INSULIN SUBQ Q6H : TO TELEMETRY
[2019-02-21 16:00] VITALS: BP 153/64
--- NOTE | 2019-02-21 19:10 | NUR ---
NURSE NOTES: Pt report received from Reva PATEL. Pt is alert and oriented times 2, pupils are round and reactive to light and accommodating, bilaterality. Pt is saturating at 100% room air, no signs or symptoms of acute respiratory distress noted. Pt has a condom cath Murray patent and able to drain to gravity. no distress noted to skin or Murray tubing. Pt has a L wrist 20G patent and able to flush. All safety precautions are active, such as bed rails are raised, bed is in lowest position, bed alarm active, brakes are locked. will continue plan of care.
--- NOTE | 2019-02-21 19:20 | NUR ---
HAND-OFF: Report given to JORGE Spivey. Patient is in stable condition. Endorsed plan of care.
[2019-02-21 20:00] VITALS: BP 152/62
--- NOTE | 2019-02-21 23:45 | Coder Physician Query ---
Clarification is required for compliance, coding accuracy, and to reflect severity of illness for this patient Dear Dr. López Date: 02/21/2019 Rouge Presser/CDS Name: Muriel Barrera Is there a diagnosis specific to this lab values? If so please state below. Sodium (Na) level on admission: 127 Diagnosis:_Hyponatremia Present on Admission: [ x ] Yes [ ] No [ ] Clinically Undetermined Physician signature Date Please also document in your Progress Notes and/or Discharge Summary and indicate if the condition was present on admission. ASYAD
[2019-02-22] VITALS: BP 137/54
[2019-02-22 04:00] VITALS: BP 150/61
[2019-02-22] MEDS: NovoLOG Insulin Flexpen SUBQ SCH ×3 (05:49→17:07)
--- NOTE | 2019-02-22 07:20 | NUR ---
HAND-OFF: Report given to KELL PATEL. Pt in stable condition.
--- NOTE | 2019-02-22 07:33 | NUR ---
NURSE NOTES: Received report from JORGE Spivey. Patient in bed resting, no active s/s cardiac, respiratory distress noticed at this time. Patient on room air, denies pain at this time, AOx2, SR with HR 74. Patient on G-tube feeding, Nepro 1.8 running at 35ml/h, asymptomatic, no residual. Endorsed 20meq KCl given yesterday for K level 3.3. IV on left wrist 20G, asymptomatic, patent, intact. Bed in lowest position, side rails upx3, call light within reach. Will continue to monitor.
[2019-02-22 08:00] VITALS: BP 149/61
[2019-02-22 08:00] LABS: EOSINOPHILS % (AUTO) 4.1 % (0.0-3.0); HEMATOCRIT 27.9 % (42.0-52.0); HEMOGLOBIN 9.6 G/DL (14.2-18.0); LYMPHOCYTES % (AUTO) 8.3 % (20.0-45.0); MEAN CORPUSCULAR VOLUME 91 FL (80-99); MONOCYTES % (AUTO) 7.7 % (1.0-10.0); NEUTROPHILS % (AUTO) 78.9 % (45.0-75.0); PLATELET COUNT 321 K/UL (150-450); RED BLOOD COUNT 3.06 M/UL (4.70-6.10); RED CELL DISTRIBUTION WIDTH 14.1 % (11.6-14.8); WHITE BLOOD COUNT 11.5 K/UL (4.8-10.8)
--- NOTE | 2019-02-22 08:28 | Nephrology Progress Note ---
Assessment/Plan Plan Multiple electrolyte abnormalities - being corrected. IVD DC'ed. Check labs tomorrow. See orders. Not ready for DC yet. RTA 4. Lab results pending (8:30 am) Subjective Subjective Confused Objective Objective Last 24 Hour Vital Signs Date Time Temp Pulse Resp B/P (MAP) Pulse Ox O2 Delivery O2 Flow Rate FiO2 02/22/19 08:00 97.4 75 19 149/61 (90) 100 02/22/19 04:00 74 02/22/19 04:00 97.9 77 20 150/61 (90) 100 02/22/19 00:00 98.2 79 20 137/54 (81) 99 02/22/19 00:00 82 02/21/19 21:00 Room Air 02/21/19 20:00 98.0 76 20 152/62 (92) 99 02/21/19 20:00 75 02/21/19 16:00 79 02/21/19 16:00 98.0 85 16 153/64 (93) 98 02/21/19 12:00 77 02/21/19 12:00 98.1 82 16 152/60 (90) 98 02/21/19 09:00 Room Air 02/21/19 08:28 76 148/58 Intake and Output 02/21/19 02/22/19 19:00 07:00 Intake Total 397 ml 485 ml Output Total 500 ml 800 ml Balance -103 ml -315 ml Intake Free Water 100 ml 100 ml IV Total 262 ml Tube Feeding 35 ml 385 ml Output Urine Total 500 ml 800 ml Laboratory Tests 02/22/19 07:20: White Blood Count 11.5H, Red Blood Count 3.06L, Hemoglobin 9.6L, Hematocrit 27.9L, Mean Corpuscular Volume 91, Mean Corpuscular Hemoglobin 31.4H, Mean Corpuscular Hemoglobin Concent 34.6, Red Cell Distribution Width 14.1, Platelet Count 321, Mean Platelet Volume 5.2L, Neutrophils (%) (Auto) 78.9H, Lymphocytes (%) (Auto) 8.3L, Monocytes (%) (Auto) 7.7, Eosinophils (%) (Auto) 4.1H, Basophils (%) (Auto) 1.0, Sodium Level [Pending], Potassium Level [Pending], Chloride Level [Pending], Carbon Dioxide Level [Pending], Blood Urea Nitrogen [ Pending], Creatinine [Pending], Estimat Glomerular Filtration Rate [Pending], Glucose Level [Pending], Calcium Level [Pending], Magnesium Level [Pending] Height (Feet): 5 Height (Inches): 8.00 Weight (Pounds): 135 Objective CV RR Lungs CTa Abd SNT. BS +PEG OK E No CCE Ann López MD February 22, 2019 08:28
[2019-02-22 08:32] LABS: ANION GAP 5 mmol/L (5-15); BLOOD UREA NITROGEN 39 mg/dL (7-18); CALCIUM 9.2 MG/DL (8.5-10.1); CARBON DIOXIDE 30 MMOL/L (21-32); CHLORIDE 96 MMOL/L (98-107); CREATININE 1.3 MG/DL (0.55-1.30); POTASSIUM 3.6 MMOL/L (3.5-5.1); SODIUM 131 MMOL/L (136-145)
[2019-02-22] MEDS: Heparin 5000 units/ml inj SUBQ SCH ×2 (09:02→21:01)
--- NOTE | 2019-02-22 10:01 | NUR ---
NURSE NOTES: Paged Dr. Disla regarding patient's Mg level 1.4 today. Awaiting for callback. Will continue to monitor.
--- NOTE | 2019-02-22 10:29 | NUR ---
NURSE NOTES: Per Dr. Disla, magnesium sulfate 4 g IVPB, NS with KCl 20 meq at 45ml/hr. Order noted, entered, carried out.
[2019-02-22] MEDS: NS w/KCl 20mEq 1000ml 1,000 ML IV SCH (11:16)
[2019-02-22 12:00] VITALS: BP 144/57
[2019-02-22 16:00] VITALS: BP 145/60
--- NOTE | 2019-02-22 19:32 | NUR ---
HAND-OFF: Report given to JORGE Teague.
--- NOTE | 2019-02-22 19:50 | NUR ---
NURSE NOTES: Received pt from JORGE Cano. Pt awake, alert, and talkative. Bed in lowest position. Call light within reach. Will continue to monitor.
[2019-02-22 20:00] VITALS: BP 155/65
[2019-02-23] VITALS: BP 155/70
[2019-02-23] MEDS: NovoLOG Insulin Flexpen SUBQ SCH ×4 (01:14→18:00)
[2019-02-23 04:00] VITALS: BP 151/67
--- NOTE | 2019-02-23 07:42 | NUR ---
HAND-OFF: Report given to JORGE Chinchilla. Pt stable.
--- NOTE | 2019-02-23 07:57 | NUR ---
Pt. found in lowest position in bed in semi fowlers position. Patient alert and oriented X1. no sob noted. GT in place running nepro at @35 mL/h. pt with condom catheter. IV intact on left wrist 20 G. running 0.9% sodium chloride @45mL/h. sacral wound stage 2. no pain indicated.
[2019-02-23 08:27] VITALS: BP 160/70
[2019-02-23 08:45] LABS: ANION GAP 6 mmol/L (5-15); BLOOD UREA NITROGEN 38 mg/dL (7-18); CALCIUM 9.3 MG/DL (8.5-10.1); CARBON DIOXIDE 29 MMOL/L (21-32); CHLORIDE 96 MMOL/L (98-107); CREATININE 1.2 MG/DL (0.55-1.30); POTASSIUM 4.2 MMOL/L (3.5-5.1); SODIUM 131 MMOL/L (136-145)
[2019-02-23] MEDS: Heparin 5000 units/ml inj SUBQ SCH ×2 (09:27→20:53)
[2019-02-23] MEDS: NS w/KCl 20mEq 1000ml 1,000 ML IV SCH (09:47)
[2019-02-23 13:00] VITALS: BP 144/66
--- NOTE | 2019-02-23 15:47 | NUR ---
RD ASSESSMENT & RECOMMENDATIONS SEE CARE ACTIVITY FOR COMPLETE ASSESSMENT DAILY ESTIMATED NEEDS: Needs based on Underweight/ 51.6kg 30-35 kcals/kg 9836-4450 total kcals 1-1.5 g protein/kg 52-78 g total protein 25-30 mL/kg 9305-9109 total fluid mLs NUTRITION DIAGNOSIS: * Increased kcal and pro needs r/t underweight status, wound healing as evidenced by pt @77% [place] Body Weight, BMI underweight per guidelines, admitted w/ lt heel non-blanchable erythema. * Swallowing difficulty R/T dysphagia as evidenced by pt is PEG dep * Altered nutrition related lab values R/T clinical condition, h/o ATN per MD as evidenced by critically elev K upon adm (8.1* -> 3.2-> now wnl) CURRENT TF:Nepro @ 35ml/hr x 24 hrs ENTERAL NUTRITION RECOMMENDATIONS: Nepro @ 40ml/hr x 24 hrs to provide 960ml, 1728kcal, 77g prot, 698ml free water * Increase goal rate to 40ml/hr x 24 hrs * HOB over 30 degrees/ water flush per MD ADDITIONAL RECOMMENDATIONS: * Calibrated bedscale wt for accurate BCW * Monitor K closely (critically elev K upon adm, now wnl) * Rec Jermaine 1pkt BID for skin integrity * Continue renal formula of Nepro given h/o persistent elev K . . .
[2019-02-23 16:00] VITALS: BP 159/82
--- NOTE | 2019-02-23 16:37 | Nephrology Progress Note ---
Assessment/Plan Plan Multiple electrolyte abnormalities - being corrected. IVD DC'ed. Check labs tomorrow. See orders. Not ready for DC yet. RTA 4. Check Labs including Mg tomorrow. If stable - SNF. Subjective Subjective Confused Objective Objective Last 24 Hour Vital Signs Date Time Temp Pulse Resp B/P (MAP) Pulse Ox O2 Delivery O2 Flow Rate FiO2 02/23/19 16:00 98.1 88 20 159/82 (107) 99 02/23/19 13:00 98.1 89 18 144/66 (92) 99 02/23/19 11:35 85 02/23/19 09:25 88 160/70 02/23/19 08:27 97.9 88 18 160/70 (100) 100 02/23/19 08:18 Room Air 02/23/19 07:51 87 02/23/19 04:00 81 02/23/19 04:00 98.2 83 17 151/67 (95) 98 02/23/19 00:00 98.2 83 16 155/70 (98) 99 02/23/19 00:00 78 02/22/19 21:00 Room Air 02/22/19 20:00 98.4 82 16 155/65 (95) 99 02/22/19 20:00 80 Intake and Output 02/22/19 02/23/19 19:00 07:00 Output Total 650 ml Balance -650 ml Output Urine Total 650 ml # Voids 1 Laboratory Tests 02/23/19 07:26: Sodium Level 131L, Potassium Level 4.2, Chloride Level 96L, Carbon Dioxide Level 29, Anion Gap 6, Blood Urea Nitrogen 38H, Creatinine 1.2, Estimat Glomerular Filtration Rate , Glucose Level 131H, Calcium Level 9.3 Height (Feet): 5 Height (Inches): 8.00 Weight (Pounds): 135 Objective CV RR Lungs CTa Abd SNT. BS +PEG OK E No CCE Ann López MD February 23, 2019 16:37
[2019-02-23] MEDS ORDERED: Tubing IV Secondary IV ONE (17:20)
--- NOTE | 2019-02-23 19:00 | NUR ---
NURSE NOTES: HAND-OFF: Report given to Dl Kaur.
--- NOTE | 2019-02-23 19:45 | NUR ---
NURSE NOTES: Received report from JORGE Chinchilla. Patient in bed awake showing no signs of acute distress. Respiration even and non labored on room air. No SOB noted. IV line patent and intact. GT patent and intact. 0 residual. Feeding tolerated. Bed in lowest position, wheels locked and alarm on. All needs attended and met. Will continue plan of care.
[2019-02-23 20:00] VITALS: BP 174/74
--- NOTE | 2019-02-23 21:12 | NUR ---
NURSE NOTES: Patient is found to be vomiting with coffee ground appearance. Dr. López is made aware and gave order to keep pt. on NPO.
[2019-02-24] VITALS: BP 146/64
[2019-02-24] MEDS: NovoLOG Insulin Flexpen SUBQ SCH ×4 (00:22→18:00)
[2019-02-24 04:00] VITALS: BP 125/52
[2019-02-24 07:19] LABS: ANION GAP 6 mmol/L (5-15); BLOOD UREA NITROGEN 39 mg/dL (7-18); CALCIUM 9.1 MG/DL (8.5-10.1); CARBON DIOXIDE 28 MMOL/L (21-32); CHLORIDE 99 MMOL/L (98-107); CREATININE 1.2 MG/DL (0.55-1.30); POTASSIUM 4.7 MMOL/L (3.5-5.1); SODIUM 133 MMOL/L (136-145)
--- NOTE | 2019-02-24 07:28 | NUR ---
HAND-OFF: Report given to JORGE Massey.
--- NOTE | 2019-02-24 07:30 | NUR ---
NURSE NOTES: Received report from JORGE Sanders. The patient is sleeping on the bed without acute distress or shortness of breath. Per Tommy, the patient will be on NPO except medication due to coffee ground emesis. The patient 's bed in the lowest position, call light in reach, and fall and aspiration precaution reinforced. Will continue plan of care.
[2019-02-24 08:00] VITALS: BP 149/61
--- NOTE | 2019-02-24 08:30 | NUR ---
NURSE NOTES: Notified Dr. López regarding Hemoglobin level drop to 9.6 s/p coffee ground emesis, Potassium of 4.7, Magnesium of 1.9, and Sodium level of 133. Per Dr. López, close monitoring and BMP, CBC, Magnesium for next [address]. [address] López that the patient has history of DM and his IV is 0.9Nacl with 20mEq KCl without Dextrose even though the patient is on NPO. Per Dr. López, no dextrose necessary. Will closely monitor the patient's sugar level. The patient's morning glucose level was 124.
[2019-02-24] MEDS: Heparin 5000 units/ml inj SUBQ SCH ×2 (09:00→21:00)
[2019-02-24] MEDS: NS w/KCl 20mEq 1000ml 1,000 ML IV SCH (09:31)
--- NOTE | 2019-02-24 11:08 | Nephrology Progress Note ---
Assessment/Plan Plan Multiple electrolyte abnormalities - being corrected. IVD DC'ed. Check labs tomorrow. See orders. Not ready for DC yet. RTA 4. Check Labs including Mg tomorrow. Still unstable due to emesis. Subjective Subjective Confused. Has coffee ground emesis. Objective Objective Last 24 Hour Vital Signs Date Time Temp Pulse Resp B/P (MAP) Pulse Ox O2 Delivery O2 Flow Rate FiO2 02/24/19 09:30 75 149/61 02/24/19 08:00 97.5 75 20 149/61 (90) 100 02/24/19 04:00 96 02/24/19 04:00 98.5 82 20 125/52 (76) 96 02/24/19 00:00 97.6 85 20 146/64 (91) 100 02/24/19 00:00 85 02/23/19 21:00 Room Air 02/23/19 20:00 97.3 95 18 174/74 (107) 94 02/23/19 20:00 87 02/23/19 16:00 98.1 88 20 159/82 (107) 99 02/23/19 15:17 84 02/23/19 13:00 98.1 89 18 144/66 (92) 99 02/23/19 11:35 85 Intake and Output 02/23/19 02/24/19 19:00 07:00 Intake Total 550 ml Output Total 900 ml Balance 550 ml -900 ml Intake Free Water 200 ml Tube Feeding 350 ml Output Urine Total 700 ml Emesis 200 ml Laboratory Tests 02/24/19 06:00: Sodium Level 133L, Potassium Level 4.7, Chloride Level 99, Carbon Dioxide Level 28, Anion Gap 6, Blood Urea Nitrogen 39H, Creatinine 1.2, Estimat Glomerular Filtration Rate , Glucose Level 104, Calcium Level 9.1 02/24/19 07:20: Magnesium Level 1.9 Height (Feet): 5 Height (Inches): 8.00 Weight (Pounds): 134 Objective CV RR Lungs CTa Abd SNT. BS +PEG OK E No CCE Ann López MD February 24, 2019 11:08
[2019-02-24 12:00] VITALS: BP 136/62
--- NOTE | 2019-02-24 13:00 | NUR ---
NURSE NOTES: Wound dressing changed completed with wound care nurse. Per wound care nurse, there is no sacral wound or pressure ulcer and RN agreed. Optifoam applied on bilateral heel and sacral area for prophylactic. Will continue to monitor the patient.
--- NOTE | 2019-02-24 14:30 | NUR ---
NURSE NOTES:WOUND CARE FOLLOW-UP NOTES: Pt's sacral area with skin hyperpigmentation from previous pressure injury. dry peeling skin noted to R and L buttocks. Triad moisture Barrier paste applied to entire buttocks. Optifoam drsg applied to sacral area as preventive. R and L heels area both pink and easily blanchable. Cav[place] Skin Barrier applied to both heels and each heel covered with Optifoam drsgs. No other skin concerns noted.Pt has an APM/RUTH ANN mattress overlay and positioned with pillow and both heels floated off mattress.
[2019-02-24 16:00] VITALS: BP 143/61
--- NOTE | 2019-02-24 17:36 | NUR ---
CASE MANAGEMENT:REVIEW 02/24/19 SI: ELECTROLYTE ABNORMALITY 97.9 80 20 143/61 100% ON RA NA-133 BUN+39 IS: IVF+KCL@45/HR NORVASC PO QD HEPARIN SQ Q12 : TELEMETRY STATUS PLAN: COFFEE GROUND EMESIS LAST NIGHT ~ NPO
--- NOTE | 2019-02-24 19:30 | NUR ---
HAND-OFF: Report given to JORGE Sanders. The patient sleeping on the bed without acute distress or shortness of breath. The patient's bed in the lowest position, call light in reach, and fall and aspiration precaution reinforced. No emesis during day shift. The patient is stable. Endorsed plan of care.
--- NOTE | 2019-02-24 19:35 | NUR ---
NURSE NOTES: Received report from JORGE Massey. Patient in bed awake showing no signs of acute distress. Respiration even and non labored on room air. No SOB noted. IV line patent and intact. No emesis noted. Bed in lowest position, wheels locked and alarm on. All needs attended and met. Will continue plan of care.
[2019-02-24 20:00] VITALS: BP 143/67
[2019-02-25] VITALS: BP 154/64
[2019-02-25 04:00] VITALS: BP 142/68
[2019-02-25 05:31] LABS: BASOPHILS % (AUTO) 1.7 % (0.0-2.0); EOSINOPHILS % (AUTO) 6.1 % (0.0-3.0); HEMATOCRIT 29.1 % (42.0-52.0); HEMOGLOBIN 9.7 G/DL (14.2-18.0); LYMPHOCYTES % (AUTO) 7.4 % (20.0-45.0); MEAN CORPUSCULAR VOLUME 92 FL (80-99); MONOCYTES % (AUTO) 6.2 % (1.0-10.0); NEUTROPHILS % (AUTO) 78.6 % (45.0-75.0); PLATELET COUNT 298 K/UL (150-450); RED BLOOD COUNT 3.15 M/UL (4.70-6.10); RED CELL DISTRIBUTION WIDTH 14.7 % (11.6-14.8); WHITE BLOOD COUNT 15.3 K/UL (4.8-10.8)
[2019-02-25 05:55] LABS: ANION GAP 8 mmol/L (5-15); BLOOD UREA NITROGEN 36 mg/dL (7-18); CALCIUM 9.2 MG/DL (8.5-10.1); CARBON DIOXIDE 28 MMOL/L (21-32); CHLORIDE 102 MMOL/L (98-107); CREATININE 1.2 MG/DL (0.55-1.30); POTASSIUM 4.9 MMOL/L (3.5-5.1); SODIUM 138 MMOL/L (136-145)
[2019-02-25] MEDS: NovoLOG Insulin Flexpen SUBQ SCH ×4 (06:00→17:24)
[2019-02-25] MEDS: NS w/KCl 20mEq 1000ml 1,000 ML IV SCH (06:12)
--- NOTE | 2019-02-25 07:40 | NUR ---
HAND-OFF: Report given to JORGE Cano.
--- NOTE | 2019-02-25 07:45 | NUR ---
NURSE NOTES: Received report from JORGE Edouard. Patient in bed resting, no active s/s cardiac, respiratory distress noticed at this time. Patient AOx1, open eyes spontaneously, SR with HR 76. Endorsed G-tube feeding on hold due to coffee grounded emesis per Dr. Disla. IV on left wrist 20G, asymptomatic, patent, intact, IV fluid running at prescribed rate. Condom catheter on, draining well to gravity. Bed in lowest position, side rails upx3, call light within reach. Will continue to monitor.
[2019-02-25 08:00] VITALS: BP 147/58
[2019-02-25] MEDS: Heparin 5000 units/ml inj SUBQ SCH ×2 (08:24→21:32)
[2019-02-25 12:00] VITALS: BP 146/58
--- NOTE | 2019-02-25 12:09 | Nephrology Progress Note ---
Assessment/Plan Plan Multiple electrolyte abnormalities - being corrected. IVD DC'ed. Check labs tomorrow. See orders. Not ready for DC yet. RTA 4. Check Labs including Mg tomorrow. Still unstable due to emesis. Still NPO, vomiting!! Subjective Subjective Confused. Has coffee ground emesis. Objective Objective Last 24 Hour Vital Signs Date Time Temp Pulse Resp B/P (MAP) Pulse Ox O2 Delivery O2 Flow Rate FiO2 02/25/19 09:00 Room Air 02/25/19 08:34 87 147/58 02/25/19 08:00 76 02/25/19 08:00 97.3 87 20 147/58 (87) 97 02/25/19 04:00 76 02/25/19 04:00 97.3 82 20 142/68 (92) 100 02/25/19 00:00 84 02/25/19 00:00 97.0 84 20 154/64 (94) 100 02/24/19 21:00 Room Air 02/24/19 20:00 97.0 85 20 143/67 (92) 100 02/24/19 20:00 77 02/24/19 16:00 73 02/24/19 16:00 97.9 80 20 143/61 (88) 100 Intake and Output 02/24/19 02/25/19 19:00 07:00 Intake Total 540 ml 360 ml Output Total 400 ml 450 ml Balance 140 ml -90 ml IV Total 540 ml 360 ml Output Urine Total 400 ml 450 ml Laboratory Tests 02/25/19 05:04: White Blood Count 15.3H, Red Blood Count 3.15L, Hemoglobin 9.7L, Hematocrit 29.1L, Mean Corpuscular Volume 92, Mean Corpuscular Hemoglobin 30.6, Mean Corpuscular Hemoglobin Concent 33.2, Red Cell Distribution Width 14.7, Platelet Count 298, Mean Platelet Volume 5.3L, Neutrophils (%) (Auto) 78.6H, Lymphocytes (%) (Auto) 7.4L, Monocytes (%) (Auto) 6.2, Eosinophils (%) (Auto) 6.1H, Basophils (%) (Auto) 1.7, Sodium Level 138, Potassium Level 4.9, Chloride Level 102, Carbon Dioxide Level 28, Anion Gap 8, Blood Urea Nitrogen 36H, Creatinine 1.2, Estimat Glomerular Filtration Rate , Glucose Level 89, Calcium Level 9.2, Magnesium Level 1.9 Height (Feet): 5 Height (Inches): 8.00 Weight (Pounds): 133 Objective CV RR Lungs CTa Abd SNT. BS +PEG OK E No CCE Ann López MD February 25, 2019 12:09
--- NOTE | 2019-02-25 12:15 | NUR ---
NURSE NOTES: Dr. Disla at the nursing station, made aware patient vomited x3 last night, no vomit for morning shift, and made aware patient still NPO, no order given at this time. Per Dr. Disla, will call Dr. Brooks for GI consult. Will continue to monitor.
--- NOTE | 2019-02-25 14:22 | GI Initial Consult Note ---
History of Present Illness General Date patient seen: February 25, 2019 Time patient seen: 14:15 Reason for Hospitalization: Abnormal Labs Referring physician: OLY Reason for Consultation: GJ Conversion Present Illness HPI This patient presents from a fdc facility for hyperkalemia. The patient underwent routine labs and was found to have an elevated potassium. She presents here for further evaluation. The patient has a history of dementia and is unable to give any type of history. She has no specific complaints. GI consulted for gastrojejunostomy conversion. ROS limited, patient nonverbal at baseline. Patient seen, awake alert no apparent distress. The patient is G- tube dependent. It was reported that the patient had multiple episodes of emesis and high residual feeds. Labs reviewed; WBC 50.3, hemoglobin 9.7. Home Meds Active Scripts Heparin Sod (Porcine) (HEPARIN SODIUM*) 5 000/1 Ml Vial, 5000 UNITS SUBQ EVERY 12 HOURS for 30 Days, VIAL 6 Refills Prov:Ann López MD 02/11/19 Reported Medications Amlodipine Besylate* (AMLODIPINE BESYLATE*) 10 Mg Tablet, 10 MG GT DAILY, TAB 02/17/19 Lansoprazole* (LANSOPRAZOLE*) 30 Mg Capsule.dr, 30 MG GT BID, CAP 01/28/19 Epoetin Juwan (PROCRIT) 10,000 Unit/1 Ml Vial, 88288 UNIT SUBQ 3XW, VIAL 01/27/19 Ferrous Sulfate (Ferrous Sulfate) 220 Mg/5 Ml Elixir, 7.5 ML GT BID, ML 01/27/19 Insulin Aspart (Novolog Flexpen) 100 Unit/1 Ml Insuln.pen, SUBQ Before meals and at bedtime per sliding scale: 140mg/dl: 0 units, 140-199: 1 unit, 200-249: 3 units, 250-299: 5 units, 300-349: 7 units, 350-499: 9 units, >400: call 12/22/18 Fenofibrate,Micronized (FENOFIBRATE) 134 Mg Capsule, 134 MG GT DAILY, CAP 12/22/18 Sucralfate* (CARAFATE*) 1 Gm Tablet, 1 GM GT Q6HR, TAB 12/22/18 Acetaminophen* (ACETAMINOPHEN 325MG TABLET*) 325 Mg Tablet, 650 MG GT Q6HR PRN for Mild Pain/Temp > 100.5, TAB 11/03/18 Med list reviewed/reconciled: Yes Allergies: Coded Allergies: No Known Allergies (Verified , 12/28/06) Patient History PMH Narrative Past Medical History: see triage record, DM, HTN, GERD, dementia Past Surgical History: other - PEG Social History: Denies: smoking, alcohol use, drug use Reviewed Nursing Documentation: PMH: Agreed; PSxH: Agreed Nursing Documentation-PMH Past Medical History Deferred: No Family Available Past Medical History: No Stated History Hx Cardiac Problems: Yes Hx Hypertension: Yes Hx Diabetes: Yes Hx Cancer: No Hx Gastrointestinal Problems: Yes Hx Dialysis: No - CKD, ARF Hx Neurological Problems: Yes Hx Cerebrovascular Accident: Yes Hx Neurologic Surgery: No Social History: Denies: smoking, alcohol use, drug use, other Review of Systems All Other Systems: limited Physical Exam Vital Signs Date Time Temp Pulse Resp B/P (MAP) Pulse Ox O2 Delivery O2 Flow Rate FiO2 02/21/19 08:00 98.0 76 16 148/58 (88) 98 02/21/19 09:00 Room Air Sp02 EP Interpretation: reviewed, normal Labs Laboratory Tests Test 02/25/19 05:04 White Blood Count 15.3 K/UL (4.8-10.8) H Red Blood Count 3.15 M/UL (4.70-6.10) L Hemoglobin 9.7 G/DL (14.2-18.0) L Hematocrit 29.1 % (42.0-52.0) L Mean Corpuscular Volume 92 FL (80-99) Mean Corpuscular Hemoglobin 30.6 PG (27.0-31.0) Mean Corpuscular Hemoglobin Concent 33.2 G/DL (32.0-36.0) Red Cell Distribution Width 14.7 % (11.6-14.8) Platelet Count 298 K/UL (150-450) Mean Platelet Volume 5.3 FL (6.5-10.1) L Neutrophils (%) (Auto) 78.6 % (45.0-75.0) H Lymphocytes (%) (Auto) 7.4 % (20.0-45.0) L Monocytes (%) (Auto) 6.2 % (1.0-10.0) Eosinophils (%) (Auto) 6.1 % (0.0-3.0) H Basophils (%) (Auto) 1.7 % (0.0-2.0) Sodium Level 138 MMOL/L (136-145) Potassium Level 4.9 MMOL/L (3.5-5.1) Chloride Level 102 MMOL/L (98-107) Carbon Dioxide Level 28 MMOL/L (21-32) Anion Gap 8 mmol/L (5-15) Blood Urea Nitrogen 36 mg/dL (7-18) H Creatinine 1.2 MG/DL (0.55-1.30) Estimat Glomerular Filtration Rate mL/min (>60) Glucose Level 89 MG/DL (74-106) Calcium Level 9.2 MG/DL (8.5-10.1) Magnesium Level 1.9 MG/DL (1.8-2.4) General Appearance: well appearing, no apparent distress, alert Head: normocephalic EENT: PERRL/EOMI, normal ENT inspection Neck: supple Respiratory: normal breath sounds, no respiratory distress Cardiovascular: normal rate Gastrointestinal: normal inspection, non tender, soft, normal bowel sounds, non -distended Rectal: deferred Genitourinary: deferred Musculoskeletal: normal inspection, back normal Neurologic: alert Skin: normal inspection, normal color, no rash, warm/dry, palpation normal, well hydrated Lymphatic: normal inspection, no adenopathy Current Medications Current Medications Medications (Trade) Dose Ordered Sig/Jarrod Route PRN Reason Start Time Stop Time Status Last Admin Dose Admin Amlodipine Besylate (Norvasc) 10 mg DAILY ORAL 02/21/19 09:00 03/23/19 08:59 02/25/19 08:34 Dextrose (Dextrose 50%) 25 ml Q30M PRN IV Hypoglycemia 02/17/19 14:15 03/19/19 14:14 Dextrose (Dextrose 50%) 50 ml Q30M PRN IV Hypoglycemia 02/17/19 14:15 03/19/19 14:14 Heparin Sodium (Porcine) (Heparin 5000 units/ml) 5,000 units EVERY 12 HOURS SUBQ 02/16/19 21:00 03/18/19 20:59 02/23/19 20:53 Insulin Aspart (NovoLOG) Q6HR SUBQ 02/17/19 18:00 03/19/19 17:59 02/24/19 00:22 Magnesium Sulfate 100 ml @ 100 mls/hr Q1H IVPB 02/25/19 12:15 02/25/19 15:14 02/25/19 13:18 Potassium Chloride/Sodium Chloride 1,000 ml @ 45 mls/hr [id number] IV 02/22/19 11:30 03/24/19 11:29 02/25/19 06:12 Sodium Chloride 1,000 ml @ 0 mls/hr Q0M IV 02/18/19 17:00 03/18/19 16:59 Sodium Chloride 1,000 ml @ 0 mls/hr Q0M IV 02/21/19 10:30 03/20/19 10:29 GI: Plan Problems: (1) Encounter for PEG (percutaneous endoscopic gastrostomy) (2) Anemia (3) G tube feedings (4) Coffee ground emesis (5) Dehydration (6) Gastroparesis Plan Patient scheduled for gastrojejunostomy conversion tomorrow, 2 MD consent required. Maintain NPO + IVFs reglan GTFs ppi prn transfusions will follow with additional recommendations post procedure. Discussed with Dr. Brooks. Thank you for this patient referral, we will follow. The patient was seen and examined at bedside and all new and available data was reviewed in the patients chart. I agree with the above findings, impression and plan. (Patient seen earlier today. Signature stamp does not reflect patient encounter time.). - MD [facility] PUBLICATION SPECIALIST February 25, 2019 14:22
--- NOTE | 2019-02-25 14:40 | NUR ---
NURSE NOTES: Called skilled nursing to clarify if patient has family member or POA, per case planner from skilled nursing, no POA, family member. KAY Stovall, made aware patient AOx1, no family member/ POA listed to sign consent for EGD. Per KAY Stovall, already aware of no family member and stated need 2 MD consent just write it out. Order noted, acknowledged, carried out. Will continue to monitor.
[2019-02-25 16:00] VITALS: BP 151/60
--- NOTE | 2019-02-25 19:33 | NUR ---
HAND-OFF: Report given to JORGE Oliver.
--- NOTE | 2019-02-25 19:39 | NUR ---
NURSE NOTES: Report received from JORGE Cano. Observed pt lying on the bed, calm and comfortable. A/O x1, no signs of pain noted. SR with crimping machine operator. On room air with no signs of sob. NPO for procedure noted, no residual and flushing well. Condom catheter intact and draining well. IV on L W 20G, running NS 20meq KCL at 45 cc/hr. Bed in the lowest position. Side rails up x3. Call light within reach. Will continue to monitor.
[2019-02-25 20:00] VITALS: BP 140/64
[2019-02-26] VITALS (9 sets, daily range): BP systolic 110–146; BP diastolic 50–65
--- NOTE | 2019-02-26 01:00 | NUR ---
NURSE NOTES: Pt sleeping on the bed, calm and comfortable. No signs of distress noted at this time. SR on quality assurance monitor final. Bed bath given. Reposition done. Side rails up x3. Call light within reach. Will continue to monitor.
[2019-02-26] MEDS: NS w/KCl 20mEq 1000ml 1,000 ML IV SCH (02:35)
[2019-02-26 04:40] LABS: BASOPHILS % (AUTO) 1.2 % (0.0-2.0); EOSINOPHILS % (AUTO) 4.6 % (0.0-3.0); HEMATOCRIT 31.3 % (42.0-52.0); HEMOGLOBIN 10.2 G/DL (14.2-18.0); LYMPHOCYTES % (AUTO) 7.7 % (20.0-45.0); MEAN CORPUSCULAR VOLUME 92 FL (80-99); MONOCYTES % (AUTO) 6.7 % (1.0-10.0); NEUTROPHILS % (AUTO) 79.9 % (45.0-75.0); PLATELET COUNT 334 K/UL (150-450); RED BLOOD COUNT 3.41 M/UL (4.70-6.10); RED CELL DISTRIBUTION WIDTH 14.6 % (11.6-14.8)
[2019-02-26 04:59] LABS: ANION GAP 6 mmol/L (5-15); BLOOD UREA NITROGEN 32 mg/dL (7-18); CARBON DIOXIDE 27 MMOL/L (21-32); CHLORIDE 101 MMOL/L (98-107); CREATININE 1.2 MG/DL (0.55-1.30); POTASSIUM 5.2 MMOL/L (3.5-5.1); SODIUM 134 MMOL/L (136-145)
[2019-02-26 05:02] LABS: INR 0.9 (0.9-1.1)
[2019-02-26] MEDS: NovoLOG Insulin Flexpen SUBQ SCH ×5 (05:58→23:47)
--- NOTE | 2019-02-26 07:15 | NUR ---
HAND-OFF: Report given to JORGE Chinchilla. No acute distress noted at this time.
--- NOTE | 2019-02-26 07:50 | NUR ---
NURSE NOTES: Pt in bed in low position, call light at bedside, pt Ox2 calm and coopertive, G-Tube feed on hold for EGD, NPO, HOB in semi fowlers, P200 mattress on and inflated, 2 rails up, condom catheter on and draining, last blood sugar report was 91, IV site patent and running fluids, pt denies pain, no s/s of distress or sob noted.
--- NOTE | 2019-02-26 09:20 | NUR ---
CASE MANAGEMENT:REVIEW 02/26/19 SI: ELECTROLYTE ABNORMALITY ANEMIA. DEHYDRATION. GASTROPARESIS GJ TUBE CONVERSION FOR TODAY 98.3 82 18 137/56 99% ON RA WBC+16.0 H/H-10.2/31.3 K+5.2 IS: IVF+KCL@45/HR NORVASC PO QD HEPARIN SQ Q12 : TELEMETRY STATUS DCP: FROM [facility] PLAN: SCHEDULED FOR GASTROJEJUNOSTOMY CONVERSION
[2019-02-26] MEDS: Heparin 5000 units/ml inj SUBQ SCH ×2 (09:27→22:05)
--- NOTE | 2019-02-26 10:20 | Pre-Procedure Note/Attestation ---
Pre-Procedure Note/Attestation Complete Prior to Procedure Planned Procedure: not applicable Procedure Narrative: egd/GJT placement Indications for Procedure Pre-Operative Diagnosis: dysphagia Attestation I attest that I discussed the nature of the procedure; its benefits; risks and complications; and alternatives (and the risks and benefits of such alternatives ), prior to the procedure, with the patient (or the patient's legal textiles sales representative). I attest that, if there was a reasonable possibility of needing a blood transfusion, the patient (or the patient's legal textiles sales representative) was given the [facility] standardized written summary, pursuant to the David Saqib Blood Safety Act ([place] Health and Safety Code # 1645, as amended). I attest that I re-evaluated the patient just prior to the surgery and that there has been no change in the patient's H&P, except as documented below: Kentrell Brooks MD February 26, 2019 10:20
--- NOTE | 2019-02-26 14:16 | Pre-Procedure Note/Attestation ---
Pre-Procedure Note/Attestation Complete Prior to Procedure Planned Procedure: not applicable Procedure Narrative: egd/GJT placement Indications for Procedure Pre-Operative Diagnosis: dysphagia Attestation I attest that I discussed the nature of the procedure; its benefits; risks and complications; and alternatives (and the risks and benefits of such alternatives ), prior to the procedure, with the patient (or the patient's legal patient service representative). I attest that, if there was a reasonable possibility of needing a blood transfusion, the patient (or the patient's legal patient service representative) was given the [facility] standardized written summary, pursuant to the David Saqib Blood Safety Act ([place] Health and Safety Code # 1645, as amended). I attest that I re-evaluated the patient just prior to the surgery and that there has been no change in the patient's H&P, except as documented below: Kentrell Brooks MD February 26, 2019 14:16
[2019-02-26] MEDS ORDERED: LR 1000ml ONE (14:40)
[2019-02-26] MEDS ORDERED: Lidocaine 1% MPF 10mg/ml 5ml ONE (14:40)
[2019-02-26] MEDS ORDERED: Propofol 200mg/20ml IV ONE (14:40)
--- NOTE | 2019-02-26 15:15 | Endoscopy Procedure Note ---
Endoscopy Procedure Note General Indication for Procedure: dysphagia Procedures Performed: EGD Operative Findings/Diagnosis: same Specimen: none Pt Tolerated Procedure Well: Yes Estimated Blood Loss: none Anesthesia Anesthesiologist: chasity Anesthesia: MAC Inserted Devices Implant(s) used?: No GI Core Measures 50 yrs or older w/o bx or poly: Not Applicable 10yrs. F/U recommended: Not Applicable Kentrell Brooks MD February 26, 2019 15:15
--- NOTE | 2019-02-26 15:25 | Nephrology Progress Note ---
Assessment/Plan Plan Multiple electrolyte abnormalities - being corrected. IVD DC'ed. Check labs tomorrow. See orders. Not ready for DC yet. RTA 4. Check Labs including Mg tomorrow. Still unstable due to emesis. Still NPO, vomiting!! Today hyperkalemia. IVF changed again. Had JT placed + pyloric dilatation. DW Dr. Brooks. Subjective Subjective Confused. Has coffee ground emesis. Objective Objective Last 24 Hour Vital Signs Date Time Temp Pulse Resp B/P (MAP) Pulse Ox O2 Delivery O2 Flow Rate FiO2 02/26/19 12:00 98.0 88 20 134/60 (84) 99 02/26/19 09:26 82 137/56 02/26/19 08:30 Room Air 02/26/19 08:00 98.3 82 18 137/56 (83) 99 02/26/19 04:00 81 02/26/19 04:00 99.0 87 18 146/60 (88) 99 02/26/19 00:00 84 02/26/19 00:00 98.1 87 18 139/60 (86) 99 02/25/19 21:00 Room Air 02/25/19 20:00 84 02/25/19 20:00 98.2 88 20 140/64 (89) 100 02/25/19 16:00 87 02/25/19 16:00 97.1 84 20 151/60 (90) 96 Intake and Output 02/25/19 02/26/19 19:00 07:00 Intake Total 45 ml 360 ml Output Total 550 ml 800 ml Balance -505 ml -440 ml IV Total 45 ml 360 ml Output Urine Total 550 ml 800 ml # Voids 1 Laboratory Tests 02/26/19 04:28: White Blood Count 16.0H, Red Blood Count 3.41L, Hemoglobin 10.2L, Hematocrit 31.3L, Mean Corpuscular Volume 92, Mean Corpuscular Hemoglobin 30.0, Mean Corpuscular Hemoglobin Concent 32.7, Red Cell Distribution Width 14.6, Platelet Count 334, Mean Platelet Volume 4.9L, Neutrophils (%) (Auto) 79.9H, Lymphocytes (%) (Auto) 7.7L, Monocytes (%) (Auto) 6.7, Eosinophils (%) (Auto) 4.6H, Basophils (%) (Auto) 1.2, Prothrombin Time 10.0, Prothromb Time International Ratio 0.9, Activated Partial Thromboplast Time 32, Sodium Level 134L, Potassium Level 5.2H, Chloride Level 101, Carbon Dioxide Level 27, Anion Gap 6, Blood Urea Nitrogen 32H, Creatinine 1.2, Estimat Glomerular Filtration Rate , Glucose Level 91, Calcium Level 9.0, Magnesium Level 2.6H Height (Feet): 5 Height (Inches): 8.00 Weight (Pounds): 91 Objective CV RR Lungs CTa Abd SNT. BS +PEG OK E No CCE Ann López MD February 26, 2019 15:25
--- NOTE | 2019-02-26 15:39 | Anethesia Preoperative Eval ---
Anesthesia Pre-op PMH/ROS General Date of Evaluation: February 26, 2019 Time of Evaluation: 14:40 Anesthesiologist: noe ASA Score: ASA 3 Mallampati Score Class I : Soft palate, uvula, fauces, pillars visible Class II: Soft palate, uvula, fauces visible Class III: Soft palate, base of uvula visible Class IV: Only hard plate visible Mallampati Classification: Class III Surgeon: mingo Diagnosis: malfuntion G tube Surgical Procedure: G/J tube conversion Anesthesia History: none Family History: no anesthesia problems Allergies: Coded Allergies: No Known Allergies (Verified , 12/28/06) Medications: see eMAR Patient NPO?: Yes NPO Date: February 26, 2019 NPO Time: 00:01 Past Medical History Cardiovascular: Reports: HTN; Denies: CAD, CT, valve dz, arrhythmia, other Pulmonary: Denies: asthma, COPD, JEOVANY, other Gastrointestinal/Genitourinary: Reports: CRI Neurologic/Psychiatric: Reports: dementia, CVA Endocrine: Denies: DM, hypothyroidism, steroids, other HEENT: Denies: cataract (L), cataract (R), glaucoma, [place] (L), [place] (R), other Hematology/Immune: Reports: anemia; Denies: DVT, bleeding disorder, other Musculoskeletal/Integumentary: Denies: OA, RA, DJD, DDD, edema, other PMH Narrative: 1. Recurrent GI bleed. 2. History of is esophagogastritis. 3. Chronic kidney disease, stage 3 to 4. 4. 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 5. Anemia of chronic kidney disease. 6. Type 2 diabetes mellitus. 7. Status post CVA. 8. Hypertensive cardiovascular disease Anesthesia Pre-op Phys. Exam Physician Exam Last Vital Signs Date Time Temp Pulse Resp B/P (MAP) Pulse Ox O2 Delivery O2 Flow Rate FiO2 02/26/19 15:30 86 18 122/59 100 Nasal Cannula 3 02/26/19 15:25 97.6 Constitutional: NAD Neurologic: other - reacts to pain Cardiovascular: RRR Respiratory: CTA Gastrointestinal: S/NT/ND Airway Exam Mallampati Score: Class III MO: limited Neck: normal ROM: limited Teeth: missing, broken, loose Anesthesia Pre-op A/P Labs Hematology Test 02/26/19 04:28 White Blood Count 16.0 K/UL (4.8-10.8) H Red Blood Count 3.41 M/UL (4.70-6.10) L Hemoglobin 10.2 G/DL (14.2-18.0) L Hematocrit 31.3 % (42.0-52.0) L Mean Corpuscular Volume 92 FL (80-99) Mean Corpuscular Hemoglobin 30.0 PG (27.0-31.0) Mean Corpuscular Hemoglobin Concent 32.7 G/DL (32.0-36.0) Red Cell Distribution Width 14.6 % (11.6-14.8) Platelet Count 334 K/UL (150-450) Mean Platelet Volume 4.9 FL (6.5-10.1) L Neutrophils (%) (Auto) 79.9 % (45.0-75.0) H Lymphocytes (%) (Auto) 7.7 % (20.0-45.0) L Monocytes (%) (Auto) 6.7 % (1.0-10.0) Eosinophils (%) (Auto) 4.6 % (0.0-3.0) H Basophils (%) (Auto) 1.2 % (0.0-2.0) Coagulation Test 02/26/19 04:28 Prothrombin Time 10.0 SEC (9.30-11.50) Prothromb Time International Ratio 0.9 (0.9-1.1) Activated Partial Thromboplast Time 32 SEC (23-33) Chemistry Test 02/26/19 04:28 Sodium Level 134 MMOL/L (136-145) L Potassium Level 5.2 MMOL/L (3.5-5.1) H Chloride Level 101 MMOL/L (98-107) Carbon Dioxide Level 27 MMOL/L (21-32) Anion Gap 6 mmol/L (5-15) Blood Urea Nitrogen 32 mg/dL (7-18) H Creatinine 1.2 MG/DL (0.55-1.30) Estimat Glomerular Filtration Rate mL/min (>60) Glucose Level 91 MG/DL (74-106) Calcium Level 9.0 MG/DL (8.5-10.1) Magnesium Level 2.6 MG/DL (1.8-2.4) H Studies Pre-op Studies: EKG - sr Risk Assessment & Plan Plan: mac Status Change Before Surgery: No Pre-Antibiotics Drug: Fatemeh Estevez CRNA February 26, 2019 15:39
--- NOTE | 2019-02-26 15:42 | Immediate Post-Op Evaluation ---
Immediate Post-Op Evalulation Immediate Post-Op Evalulation Procedure: G/J Tube Conversion Date of Evaluation: February 26, 2019 Time of Evaluation: 15:30 IV Fluids: 250 Blood Pressure Systolic: 104 Blood Pressure Diastolic: 50 Pulse Rate: 85 Respiratory Rate: 14 O2 Sat by Pulse Oximetry: 98 Temperature (Fahrenheit): 97.4 Nausea: No Vomiting: No Patient Status: reacts, patent Hydration Status: adequate Drug: none Fatemeh Mitchell CRNA February 26, 2019 15:42
--- NOTE | 2019-02-26 15:49 | 48 Hour Post Anesthesia Eval ---
Post Anesthesia Evaluation Procedure: G/J Tube Conversion Date of Evaluation: February 26, 2019 Time of Evaluation: 15:49 Blood Pressure Systolic: 122 0: 59 Pulse Rate: 86 Respiratory Rate: 14 O2 Sat by Pulse Oximetry: 98 Airway: patent Nausea: No Vomiting: No Hydration Status: adequate Mental Status/LOC: patient returned to baseline Follow-up Care/Observations: na Post-Anesthesia Complications: none Follow-up care needed: N/A Fatemeh Mitchell CRNA February 26, 2019 15:49
--- NOTE | 2019-02-26 16:30 | NUR ---
NURSE NOTES: md Brooks was notified regarding when to start J tube feed, his response was at 1900hr Addendum: 02/26/19 at 1911 by FLORENCE GLEASON RN flush with sterile water Q6hrs 150ml
--- NOTE | 2019-02-26 19:14 | NUR ---
HAND-OFF: Report given to Alfonzo Kaur.
--- NOTE | 2019-02-26 19:30 | NUR ---
NURSE NOTES: Received patient from Amor PATEL. Patient in bed, awake. NS infusing at 45ml/hr via left ac PIV. Bed in low position, locked, bed alarm on, call light within reach.
--- NOTE | 2019-02-26 20:30 | Procedure Note ---
DATE OF PROCEDURE: 02/26/2019 SURGEON: Kentrell Brooks M.D. PROCEDURE: Upper endoscopy with dilation and GJ tube conversion. ANESTHESIA: Per PLASTIC EXTRUDING MACHINE OPERATOR, Fatemeh Tarrillion. INSTRUMENT: Olympus adult flexible upper endoscope. INDICATION: Not tolerating tube feeding and pylorus stricture. REASON FOR PROCEDURE: The procedure, risks, benefits, and possible consequences, including hemorrhage, aspiration, perforation and infection, and alternative treatments, were explained to the patient/legal guardian by Dr. Kentrell Brooks and the patient/legal guardian understood and accepted these risks. DESCRIPTION OF PROCEDURE: After informed consent was obtained and the patient was adequately sedated, Olympus upper endoscope was advanced from mouth into the second portion of the duodenum and retroflexion was performed in the stomach. The patient had evidence of severe angulation and kind of folds coming at the pylorus causing very difficult to the passage of the scope. First, we tried to pass the 24-Belarusian J-tube without dilation, was not successful. Then, we used a 2 cm balloon dilation to dilate the pylorus and that is when after that we were able with some angulation and some difficulty to pass the J-tube through and successfully placed a 24-Belarusian balloon type J-tube in place. The patient tolerated the procedure very well without any complication. SUMMARY OF FINDING: Status post EGD dilation and GJ tube conversion of 24-Belarusian J-tube. RECOMMENDATIONS: The patient to be started on tube feeding, Glucerna 1.5 and increase as tolerated to the goal rate. I want to thank Dr. López for this kind referral. Kentrell Brooks M.D. DR: SHYANN JOB#: [id number] CC: Ann López M.D.; Fax#: [phone]
--- NOTE | 2019-02-26 23:30 | NUR ---
NURSE NOTES: received orders from Dr. Disla to change tube feeding to nepro. Nepro started at 45ml/hr.
[2019-02-27] VITALS: BP 109/63
--- NOTE | 2019-02-27 00:30 | NUR ---
NURSE NOTES: J tube clogged, placed tube feeding on hold.
[2019-02-27 04:00] VITALS: BP 112/67
[2019-02-27] MEDS: NovoLOG Insulin Flexpen SUBQ SCH ×3 (06:00→18:00)
--- NOTE | 2019-02-27 06:49 | NUR ---
NURSE NOTES: Notified Dr. Brooks and Dr. Disla of clogged J tube. No response yet. Blood sugar 116, will hold 1 unit because patient not on D5 or tube feeding.
[2019-02-27 06:57] LABS: BASOPHILS % (AUTO) 0.6 % (0.0-2.0); EOSINOPHILS % (AUTO) 1.6 % (0.0-3.0); HEMATOCRIT 24.9 % (42.0-52.0); HEMOGLOBIN 8.3 G/DL (14.2-18.0); LYMPHOCYTES % (AUTO) 8.4 % (20.0-45.0); MEAN CORPUSCULAR VOLUME 93 FL (80-99); MONOCYTES % (AUTO) 5.9 % (1.0-10.0); NEUTROPHILS % (AUTO) 83.5 % (45.0-75.0); PLATELET COUNT 182 K/UL (150-450); RED BLOOD COUNT 2.67 M/UL (4.70-6.10); RED CELL DISTRIBUTION WIDTH 14.6 % (11.6-14.8); WHITE BLOOD COUNT 17.8 K/UL (4.8-10.8)
[2019-02-27 06:59] LABS: ANION GAP 10 mmol/L (5-15); BLOOD UREA NITROGEN 46 mg/dL (7-18); CARBON DIOXIDE 23 MMOL/L (21-32); CHLORIDE 104 MMOL/L (98-107); CREATININE 1.2 MG/DL (0.55-1.30); POTASSIUM 5.5 MMOL/L (3.5-5.1); SODIUM 137 MMOL/L (136-145)
--- NOTE | 2019-02-27 07:10 | NUR ---
NURSE NOTES: Dr aguila responded and instructed to use warm cranberry juice to de clog the j tube. No other orders.
--- NOTE | 2019-02-27 07:30 | NUR ---
HAND-OFF: Report given to Shilpa PATEL. Plan of care endorsed.
--- NOTE | 2019-02-27 07:31 | NUR ---
NURSE NOTES: Received report from JORGE Mejía. The patient is resting on the bed without acute distress or shortness of breath. Per Alfonzo, the J-tube was placed on 02/26/2019 but clogged during hourly shift manager. JORGE Mejía notified to Dr. López and Dr. Brooks but was told try to unclogged the tube. The patient's bed is in the lowest position, call light in reach, and fall and aspiration precaution reinforced. Will continue plan of care.
--- NOTE | 2019-02-27 07:32 | General Progress Note ---
Assessment/Plan Problem List: (1) G tube feedings ICD Codes: Z93.1 - Gastrostomy status SNOMED: 872510927, 791609929 (2) Encounter for PEG (percutaneous endoscopic gastrostomy) ICD Codes: Z43.1 - Encounter for attention to gastrostomy SNOMED: 117392814, 468291257 (3) Coffee ground emesis ICD Codes: K92.0 - Hematemesis SNOMED: 40000643, 612376890 (4) Anemia ICD Codes: D64.9 - Anemia, unspecified SNOMED: 851141467 (5) Pancreatitis ICD Codes: K85.90 - Acute pancreatitis without necrosis or infection, unspecified SNOMED: 66264345 (6) DM Assessment/Plan: s/p JT placement yesterday JT got clogged per nurses today cont flushing the tube fu labs Subjective ROS Limited/Unobtainable: No Allergies: Coded Allergies: No Known Allergies (Verified , 12/28/06) Objective Last 24 Hour Vital Signs Date Time Temp Pulse Resp B/P (MAP) Pulse Ox O2 Delivery O2 Flow Rate FiO2 02/27/19 04:00 98.0 88 18 112/67 (82) 96 02/27/19 04:00 96 02/27/19 00:00 97.2 98 18 109/63 (78) 98 02/26/19 23:46 92 02/26/19 21:00 Room Air 02/26/19 20:29 93 02/26/19 20:00 98.0 90 18 143/55 (84) 96 02/26/19 15:49 86 14 98 02/26/19 15:46 82 02/26/19 15:45 97.2 88 18 142/65 97 Room Air 02/26/19 15:42 85 14 98 02/26/19 15:40 82 17 138/62 98 Room Air 02/26/19 15:30 86 18 122/59 100 Nasal Cannula 3 02/26/19 15:25 97.6 85 14 110/50 98 Nasal Cannula 3 02/26/19 12:00 98.0 88 20 134/60 (84) 99 02/26/19 11:27 86 02/26/19 11:27 86 02/26/19 09:26 82 137/56 02/26/19 08:30 Room Air 02/26/19 08:00 98.3 82 18 137/56 (83) 99 02/26/19 07:55 79 Intake and Output 02/26/19 02/27/19 18:59 06:59 Intake Total 475 ml Output Total 300 ml 900 ml Balance 175 ml -900 ml IV Total 475 ml Output Urine Total 300 ml 900 ml Laboratory Tests 02/27/19 05:05: White Blood Count 17.8H, Red Blood Count 2.67L, Hemoglobin 8.3L, Hematocrit 24.9L, Mean Corpuscular Volume 93, Mean Corpuscular Hemoglobin 31.2H, Mean Corpuscular Hemoglobin Concent 33.5, Red Cell Distribution Width 14.6, Platelet Count 182, Mean Platelet Volume 6.5, Neutrophils (%) (Auto) 83.5H, Lymphocytes ( %) (Auto) 8.4L, Monocytes (%) (Auto) 5.9, Eosinophils (%) (Auto) 1.6, Basophils (%) (Auto) 0.6, Sodium Level 137, Potassium Level 5.5H, Chloride Level 104, Carbon Dioxide Level 23, Anion Gap 10, Blood Urea Nitrogen 46H, Creatinine 1.2, Estimat Glomerular Filtration Rate , Glucose Level 103, Calcium Level 9.0, Magnesium Level 2.1 Height (Feet): 5 Height (Inches): 8.00 Weight (Pounds): 129 General Appearance: alert EENT: normal ENT inspection Neck: supple Cardiovascular: normal rate Respiratory/Chest: decreased breath sounds Abdomen: normal bowel sounds, non tender, soft Extremities: non-tender Kentrell Brooks MD Feb 27, 2019 07:32
[2019-02-27 08:00] VITALS: BP 140/62
--- NOTE | 2019-02-27 08:42 | NUR ---
NURSE NOTES: Notified Dr. López regarding Hg drop of 10.2 to 8.3 in a day, Potassium elevation of 5.2 to 5.5, and WBC of 17.8. Will closely monitor the patient. Will carry out the order as soon as receives it.
[2019-02-27] MEDS: Heparin 5000 units/ml inj SUBQ SCH ×2 (09:00→20:42)
--- NOTE | 2019-02-27 09:30 | NUR ---
NURSE NOTES: Multiple trials made to unclog J-tube with charge nurse and other nurse. Unable to unclog J-tube. Notified to Dr. Brooks, and per Dr. Brooks, he will come and check. Unable to administer J-tube medication including Amlodipine due to clogged J-tube.
--- NOTE | 2019-02-27 11:30 | NUR ---
NURSE NOTES: Novolog not given since tube feeding on hold due to clogged J-tube. Will continue to monitor the patient.
[2019-02-27 12:00] VITALS: BP 139/58
--- NOTE | 2019-02-27 12:27 | Nephrology Progress Note ---
Assessment/Plan Plan Multiple electrolyte abnormalities - being corrected. IVD DC'ed. Check labs tomorrow. See orders. Not ready for DC yet. RTA 4. Check Labs including Mg tomorrow. Still unstable due to emesis. Today hyperkalemia. K 5.5 IVF changed again. Had JT placed + pyloric dilatation. DW Dr. Brooks. Now JT clogged. Subjective Subjective s/p JT. Now clogged. Objective Objective Last 24 Hour Vital Signs Date Time Temp Pulse Resp B/P (MAP) Pulse Ox O2 Delivery O2 Flow Rate FiO2 02/27/19 09:00 Room Air 02/27/19 08:00 89 02/27/19 08:00 98.1 98 18 140/62 (88) 97 02/27/19 04:00 98.0 88 18 112/67 (82) 96 02/27/19 04:00 96 02/27/19 00:00 97.2 98 18 109/63 (78) 98 02/26/19 23:46 92 02/26/19 21:00 Room Air 02/26/19 20:29 93 02/26/19 20:00 98.0 90 18 143/55 (84) 96 02/26/19 15:49 86 14 98 02/26/19 15:46 82 02/26/19 15:45 97.2 88 18 142/65 97 Room Air 02/26/19 15:42 85 14 98 02/26/19 15:40 82 17 138/62 98 Room Air 02/26/19 15:30 86 18 122/59 100 Nasal Cannula 3 02/26/19 15:25 97.6 85 14 110/50 98 Nasal Cannula 3 Intake and Output 02/26/19 02/27/19 19:00 07:00 Intake Total 475 ml Output Total 300 ml 900 ml Balance 175 ml -900 ml IV Total 475 ml Output Urine Total 300 ml 900 ml Laboratory Tests 02/27/19 05:05: White Blood Count 17.8H, Red Blood Count 2.67L, Hemoglobin 8.3L, Hematocrit 24.9L, Mean Corpuscular Volume 93, Mean Corpuscular Hemoglobin 31.2H, Mean Corpuscular Hemoglobin Concent 33.5, Red Cell Distribution Width 14.6, Platelet Count 182, Mean Platelet Volume 6.5, Neutrophils (%) (Auto) 83.5H, Lymphocytes ( %) (Auto) 8.4L, Monocytes (%) (Auto) 5.9, Eosinophils (%) (Auto) 1.6, Basophils (%) (Auto) 0.6, Sodium Level 137, Potassium Level 5.5H, Chloride Level 104, Carbon Dioxide Level 23, Anion Gap 10, Blood Urea Nitrogen 46H, Creatinine 1.2, Estimat Glomerular Filtration Rate , Glucose Level 103, Calcium Level 9.0, Magnesium Level 2.1 Height (Feet): 5 Height (Inches): 8.00 Weight (Pounds): 129 Objective CV RR Lungs CTa Abd SNT. BS +PEG OK E No CCE Ann López MD Feb 27, 2019 12:27
[2019-02-27 16:00] VITALS: BP 142/54
[2019-02-27] MEDS ORDERED: NS 275ml ONE (17:01)
--- NOTE | 2019-02-27 17:32 | NUR ---
NURSE NOTES: Notified Dr. López regarding black color stool. Will carry out the order as soon as receives it.
--- NOTE | 2019-02-27 18:30 | NUR ---
NURSE NOTES: Notifiedx2 to Dr. Brooks regarding clogged J-tube. Will monitor the patient closely. Will carry out the order as soon as receives it.
--- NOTE | 2019-02-27 19:40 | NUR ---
NURSE NOTES: Received report from Quiana Rasmussen RN. Patient is asleep in bed, A/O x2, arousable to shaking. Sinus rhythm on awake overnight monitor. No s/s of acute distress noted at this time. Saturating well on room air. JT noted to be clogged, will attempt to declog. Condom catheter intact and draining well to gravity. Left AC 22g IV, intact and patent, running NS @ 45 cc/hr as prescribed. Bed locked in lowest position with side rails up x3. Call light left within reach. Will continue to monitor.
--- NOTE | 2019-02-27 19:45 | NUR ---
HAND-OFF: Report given to JORGE Negron. The patient is sleeping on the bed without acute distress or shortneess of breath. The patient's bed in the lowest position, call light in reach, and fall and aspiration precaution reinforced. Endorsed plan of care.
[2019-02-27 20:00] VITALS: BP_SYST 146; BP_SYST 155; BP_DIAS 59; BP_DIAS 65
[2019-02-28] VITALS: BP 149/59
[2019-02-28 04:00] VITALS: BP 150/69
[2019-02-28] MEDS: NovoLOG Insulin Flexpen SUBQ SCH ×4 (06:00→17:36)
--- NOTE | 2019-02-28 07:30 | NUR ---
NURSE NOTES: eceived report from Jessica PATEL. Alert and awake. Non-verbal. Pt lying in bed. IV in LAC 22G running with NS @45ml/hr intact and patent.. On room air. No signs of distress noted. Bed in its lowest position and locked. Bilateral side rails x3 up. Call light within easy reach. On alarm zone 2. Will continue to plan of care.
--- NOTE | 2019-02-28 07:40 | NUR ---
NURSE NOTES: Dr. Brooks came and removed old Jtube and reinserted 24Fr Jtube and able to flush well and no KUB needed for Dr. Brooks.
--- NOTE | 2019-02-28 07:40 | NUR ---
HAND-OFF: Report given to JORGE Pickens.
--- NOTE | 2019-02-28 07:46 | General Progress Note ---
Assessment/Plan Problem List: (1) G tube feedings ICD Codes: Z93.1 - Gastrostomy status SNOMED: 162787003, 983275205 (2) Encounter for PEG (percutaneous endoscopic gastrostomy) ICD Codes: Z43.1 - Encounter for attention to gastrostomy SNOMED: 077289626, 587563218 (3) Coffee ground emesis ICD Codes: K92.0 - Hematemesis SNOMED: 50352096, 416881515 (4) Anemia ICD Codes: D64.9 - Anemia, unspecified SNOMED: 217424468 (5) Pancreatitis ICD Codes: K85.90 - Acute pancreatitis without necrosis or infection, unspecified SNOMED: 82198228 (6) DM Assessment/Plan: s/p JT placement on friday but now kinked replaced by 24 Fr GT today will start GTF fu labs Subjective ROS Limited/Unobtainable: No Allergies: Coded Allergies: No Known Allergies (Verified , 12/28/06) Objective Last 24 Hour Vital Signs Date Time Temp Pulse Resp B/P (MAP) Pulse Ox O2 Delivery O2 Flow Rate FiO2 02/28/19 04:00 98.1 91 18 150/69 (96) 99 02/28/19 00:00 97.7 91 16 149/59 (89) 99 02/27/19 23:52 75 02/27/19 21:00 Room Air 02/27/19 20:00 97.7 91 18 146/65 (92) 98 02/27/19 19:25 78 02/27/19 17:00 Room Air 02/27/19 16:00 79 02/27/19 16:00 98.3 76 18 142/54 (83) 100 02/27/19 12:00 89 02/27/19 12:00 98.2 89 20 139/58 (85) 100 02/27/19 09:00 Room Air 02/27/19 09:00 89 140/62 02/27/19 08:00 89 02/27/19 08:00 98.1 98 18 140/62 (88) 97 Intake and Output 02/27/19 02/28/19 18:59 06:59 Intake Total 540 ml 405 ml Output Total 400 ml 800 ml Balance 140 ml -395 ml IV Total 540 ml 405 ml Output Urine Total 400 ml 800 ml # Bowel Movements 1 Height (Feet): 5 Height (Inches): 8.00 Weight (Pounds): 126 General Appearance: alert EENT: normal ENT inspection Neck: supple Cardiovascular: normal rate Respiratory/Chest: decreased breath sounds Abdomen: normal bowel sounds, non tender, soft Extremities: non-tender Kentrell Brooks MD Feb 28, 2019 07:46
[2019-02-28 08:00] VITALS: BP 141/71
[2019-02-28 08:45] LABS: ANION GAP 8 mmol/L (5-15); BASOPHILS % (AUTO) 1.4 % (0.0-2.0); BLOOD UREA NITROGEN 42 mg/dL (7-18); CALCIUM 8.5 MG/DL (8.5-10.1); CARBON DIOXIDE 24 MMOL/L (21-32); CHLORIDE 107 MMOL/L (98-107); CREATININE 1.2 MG/DL (0.55-1.30); EOSINOPHILS % (AUTO) 3.8 % (0.0-3.0); HEMATOCRIT 25.2 % (42.0-52.0); HEMOGLOBIN 8.2 G/DL (14.2-18.0); LYMPHOCYTES % (AUTO) 9.9 % (20.0-45.0); MEAN CORPUSCULAR VOLUME 93 FL (80-99); MONOCYTES % (AUTO) 6.5 % (1.0-10.0); NEUTROPHILS % (AUTO) 78.4 % (45.0-75.0); PLATELET COUNT 248 K/UL (150-450); POTASSIUM 4.4 MMOL/L (3.5-5.1); RED BLOOD COUNT 2.69 M/UL (4.70-6.10); RED CELL DISTRIBUTION WIDTH 14.8 % (11.6-14.8); SODIUM 139 MMOL/L (136-145); WHITE BLOOD COUNT 13.8 K/UL (4.8-10.8)
[2019-02-28 08:54] LABS: AMYLASE 43 U/L (25-115)
[2019-02-28] MEDS: Heparin 5000 units/ml inj SUBQ SCH (09:35)
[2019-02-28 12:00] VITALS: BP 130/60
--- NOTE | 2019-02-28 13:36 | Nephrology Progress Note ---
Assessment/Plan Plan Multiple electrolyte abnormalities - being corrected. IVD DC'ed. Check labs tomorrow. See orders. Not ready for DC yet. RTA 4. Check Labs including Mg tomorrow. Still unstable due to emesis. Today hyperkalemia. K 5.5 IVF changed again. Had JT placed + pyloric dilatation. DW Dr. Brooks. Now JT clogged. Dr. Brooks came and removed old Jtube and reinserted 24Fr Jtube and able to flush well and no KUB needed for Dr. Brooks. Electrolytes OK. DC to SNF. Subjective Subjective s/p JT. Now clogged. Dr. Brooks came and removed old Jtube and reinserted 24Fr Jtube and able to flush well and no KUB needed for Dr. Brooks. Objective Objective Last 24 Hour Vital Signs Date Time Temp Pulse Resp B/P (MAP) Pulse Ox O2 Delivery O2 Flow Rate FiO2 02/28/19 12:00 97.2 88 18 130/60 (83) 100 02/28/19 09:33 82 141/71 02/28/19 09:00 Room Air 02/28/19 08:00 97.7 82 18 141/71 (94) 100 02/28/19 08:00 81 02/28/19 04:00 79 02/28/19 04:00 98.1 91 18 150/69 (96) 99 02/28/19 00:00 97.7 91 16 149/59 (89) 99 02/27/19 23:52 75 02/27/19 21:00 Room Air 02/27/19 20:00 97.7 91 18 146/65 (92) 98 02/27/19 19:25 78 02/27/19 17:00 Room Air 02/27/19 16:00 79 02/27/19 16:00 98.3 76 18 142/54 (83) 100 Intake and Output 02/27/19 02/28/19 18:59 06:59 Intake Total 540 ml 405 ml Output Total 400 ml 800 ml Balance 140 ml -395 ml IV Total 540 ml 405 ml Output Urine Total 400 ml 800 ml # Bowel Movements 1 Laboratory Tests 02/28/19 07:15: White Blood Count 13.8H, Red Blood Count 2.69L, Hemoglobin 8.2L, Hematocrit 25.2L, Mean Corpuscular Volume 93, Mean Corpuscular Hemoglobin 30.3, Mean Corpuscular Hemoglobin Concent 32.4, Red Cell Distribution Width 14.8, Platelet Count 248, Mean Platelet Volume 5.2L, Neutrophils (%) (Auto) 78.4H, Lymphocytes (%) (Auto) 9.9L, Monocytes (%) (Auto) 6.5, Eosinophils (%) (Auto) 3.8H, Basophils (%) (Auto) 1.4, Sodium Level 139, Potassium Level 4.4, Chloride Level 107, Carbon Dioxide Level 24, Anion Gap 8, Blood Urea Nitrogen 42H, Creatinine 1.2, Estimat Glomerular Filtration Rate , Glucose Level 84, Calcium Level 8.5, Amylase Level 43, Lipase 99 Height (Feet): 5 Height (Inches): 8.00 Weight (Pounds): 126 Objective CV RR Lungs CTa Abd SNT. BS +PEG OK E No CCE Ann López MD Feb 28, 2019 13:36
[2019-02-28 16:00] VITALS: BP 135/57
--- NOTE | 2019-02-28 19:05 | NUR ---
Discharge: Patient is being discharged from medical care. Awake, alert and oriented x2 and Non-verbal. After care instructions, at this time patient does not request medications, equipment or placement. 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 All medical devices such ascardiac monitor, IV and ID band were removed. Patient picked up bu [facility] ambulance personnels via gurney with all personal belongings. Report given to ambulance personnels and RN at the SNF.
--- NOTE | 2019-03-01 07:46 | Discharge Summary ---
Discharge Summary Discharge Summary _ DATE OF ADMISSION: 02/16/2019 DATE OF DISCHARGE: 02/28/2019 DISCHARGED BY: Dr. 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 Patient by himself demented and was unable to provide any history. Upon evaluation vital signs were stable . Mild leukocytosis WBC 11.3, hemoglobin 12.7, hematocrit 38.9. Potassium 8.1. Sodium 127. BUN 59 9,. Creatinine 1.5 albumin 3.2. Urinalysis revealed +3 protein, +4 blood, no pyuria, occasional bacteria . EKG revealed slightly peaked T waves with underlying normal sinus rhythm, no PVC, no ectopy. In emergency department treatment for hyperkalemia was initiated. Patient subsequently was admitted to telemetry floor for further management. CONSULTANTS: GI specialist Dr. Brooks [facility] COURSE: Patient admitted to telemetry floor for cardiac monitoring. Patient started on the IV hydration with close monitoring of renal parameters and electrolytes. Patient presented with multiply electrolyte abnormalities, including magnesium , sodium, and potassium. After electrolytes corrected, IV fluids stopped. Patient developed subsequently hypokalemia which was corrected. Nephrotoxins were avoided as possible. Laboratory values indicated aldosterone less than 1 and creatinine 0.575. Patient had renal tubular acidosis type 4. Patient had multiply episodes of emesis and high residuals . GI specialist followed. Patient restarted on the IV fluids and was kept n.p.o. GI prophylaxis provided Antiemetic provided as needed. Patient subsequently undergone upper endoscopy with dilation and GJ tube conversion to 24 Swedish J-tube. During the procedure noted pyloric stricture , and 2 cm balloon dilation was performed to dilate the pylorus. Afterwards GI specialist was able to pass J tube. Patient started on the tube feeding as tolerated with strict aspiration precaution. The next day J-tube became clogged and not resolved with persistent flushing. J tube was replaced by 24 Swedish G-tube at the bedside GI specialist. Patient started on G-tube feeding with strict aspiration/reflux precautions. Patient was able to tolerate tube feeding. Hemoglobin hematocrit were closely monitored with goal to keep hemoglobin above 7. Blood pressure was managed with calcium channel saloni. DVT prophylaxis provided. Blood sugar was managed with sliding scale of insulin. Patient clinically stabilized and was ready for return to the [facility] for continuation of care. Prior to discharge all electrolytes stable : sodium 139 , potassium 4.4 , magnesium 2.1. Hemoglobin 8.2 ,hematocrit 25.2. FINAL DIAGNOSES: Hyperkalemia due to renal tubular acidosis type 4-resolved Hyponatremia-resolved Recurrent GI bleeding History of esophagogastritis Status post upper endoscopy with dilation and GJ tube conversion to J-tube Pyloric stricture Chronic kidney disease stage 3-4 Anemia of chronic kidney disease Type 2 diabetes mellitus Hypertensive cardiovascular disease Status post CVA Dysphagia, G-tube feeding Dehydration DISCHARGE MEDICATIONS: See Medication Reconciliation list. DISCHARGE INSTRUCTIONS: Patient was discharged to the [facility]. Follow up with medical doctor at the facility. I have been assigned to dictate discharge summary for this account. I was not involved in the patient's management. Mari Edmond NP Mar 01, 2019 07:46
[2019-06-12] MEDS ORDERED: INVANZ1 G1 IM (13:21)
[2019-06-12] MEDS ORDERED: ERTAPENEM1 GM IJ (13:25)
== END 2019-02-28 19:10 | DRG 641 ==
LOC: EDBD 11:25 → EMR 11:45 → 2E 13:17 → EDBEDREQ 14:14 → 2E 15:54
PROC: 0D20XUZ Change Feeding Device in Upper Intestinal Tract, External Approach (ICD-10-PCS; principal; 2019-02-26 14:47)
PROC: 0D778ZZ Dilation of Stomach, Pylorus, Via Natural or Artificial Opening Endoscopic (ICD-10-PCS; principal; 2019-02-26 14:47)
DX: E87.5 Hyperkalemia (principal); K92.2 Gastrointestinal hemorrhage, unspecified; N18.4 Chronic kidney disease, stage 4 (severe); K31.1 Adult hypertrophic pyloric stenosis; N25.89 Other disorders resulting from impaired renal tubular function; E87.1 Hypo-osmolality and hyponatremia; I13.10 Hypertensive heart and chronic kidney disease without heart failure, with stage 1 through stage 4 chronic kidney disease, or unspecified chronic kidney disease; E11.22 Type 2 diabetes mellitus with diabetic chronic kidney disease; Z86.73 Personal history of transient ischemic attack (TIA), and cerebral infarction without residual deficits; D63.1 Anemia in chronic kidney disease; R11.10 Vomiting, unspecified; R13.10 Dysphagia, unspecified; E86.0 Dehydration
CPT/HCPCS: 36415; 80048; 80053; 81003; 82088; 82150; 82962; 83690; 83735; 84100; 84132; 84244; 85025; 85610; 85730; 87081; 93005; 94003; 94150; 94664; 96365; 96375; 99291; J1815

== ENCOUNTER 2019-03-25 12:38 | Inpatient (IN) | payer MEDICARE, OTHER ==
[~2019-03-25] VITALS: Ht 165.1 cm; Wt 59.0 kg
[~2019-03-25 12:38] MED LIST changes: +AMLODIPINE BESY10 MG GT
[2019-03-25 12:49] VITALS: BP 122/67
--- NOTE | 2019-03-25 12:49 | NUR ---
ED Nurse Note: PT BROUGHT IN BY AMBULANCE FROM [facility] DUE TO BLOODY STOOL X THIS AM. PER EMS, PT HAS HX OF GI BLEED. PT AOX1 - ORIENTED TO SELF. PT ARRIVED IN DIAPER - NO STOOL OR BLOOD NOTED. PT PRESENTS WITH GTUBE TO LEFT UPPER ABDOMEN. PRESSURE ULCER NOTED TO COCCYX AREA. PHOTO UPLOADED TO EMR. PT CONTRACTED IN ALL EXTREMITIES.
[2019-03-25] MEDS ORDERED: MILK OF MA400 MG/51 GT (12:58)
--- NOTE | 2019-03-25 13:10 | Emergency Room Report ---
History of Present Illness General Chief Complaint: General Complaint Source: Patient, EMS Present Illness HPI Notes from nursing facility with reports of diarrhea and possible blood in stool Patient himself is nonverbal significant medical history with comorbidities Previous CVA No reports of vomiting patient has a feeding tube in place Unknown regarding any rash no fevers were reported This episode occurred earlier today Allergies: Coded Allergies: No Known Allergies (Verified , 12/28/06) Patient History Limited by: medical condition Past Medical History: see triage record Pertinent Family History: unable to obtain Reviewed Nursing Documentation: PMH: Agreed; PSxH: Agreed Nursing Documentation-PMH Past Medical History: No History, Except For Hx Cardiac Problems: Yes Hx Hypertension: Yes Hx Diabetes: Yes Hx Cancer: No Hx Gastrointestinal Problems: Yes Hx Dialysis: No - CKD, ARF Hx Neurological Problems: Yes Hx Cerebrovascular Accident: Yes Hx Neurologic Surgery: No Review of Systems All Other Systems: limited - Other than the ones mentioned in the history of present illness all others are reviewed however they do stay limited due to the patient's mental status Physical Exam Vital Signs Date Time Temp Pulse Resp B/P (MAP) Pulse Ox O2 Delivery O2 Flow Rate FiO2 03/25/19 12:35 96.1 94 17 116/62 (80) 100 Room Air Sp02 EP Interpretation: reviewed, normal General Appearance: no apparent distress Head: normocephalic, atraumatic Eyes: bilateral eye PERRL, bilateral eye EOMI ENT: normal pharynx, no angioedema Neck: supple Respiratory: lungs clear, no respiratory distress, no retraction Cardiovascular #1: regular rate, rhythm Gastrointestinal: non tender, soft, other - Feeding tube in place Rectal: other - Green stool negative melena Genitourinary: no CVA tenderness Musculoskeletal: other - Contracted in upper and lower extremities Neurologic: responsive - Awake makes eye contact responsive Skin: normal color, no rash Lymphatic: no adenopathy Medical Decision Making Diagnostic Impression: Primary Impression: Anemia Additional Impressions: G tube feedings GI bleeding ER Course Patient is a fairly complex patient with multiple differential to consideration including but not limited to cardiac cardiopulmonary and vascular emergencies Differential such as GI bleeding also entertained I cannot appreciate any obvious melena Patient's kidney function is elevated Hemoglobin does not require emergent transfusion and patient will be admitted for further inpatient care Labs Test 03/25/19 12:20 03/25/19 12:46 Urine Color Pale yellow Urine Appearance Very cloudy Urine pH 5 (4.5-8.0) Urine Specific [place] 1.010 (1.005-1.035) Urine Protein 3+ (NEGATIVE) Urine Glucose (UA) Negative (NEGATIVE) Urine Ketones Negative (NEGATIVE) Urine Blood 4+ (NEGATIVE) Urine Nitrite Positive (NEGATIVE) Urine Bilirubin Negative (NEGATIVE) Urine Urobilinogen Normal MG/DL (0.0-1.0) Urine Leukocyte Esterase 3+ (NEGATIVE) Urine RBC 15-20 /HPF (0 - 0) Urine WBC Tntc /HPF (0 - 0) Urine Squamous Epithelial Cells Occasional /LPF Urine Bacteria Many /HPF (NONE) White Blood Count 15.0 K/UL (4.8-10.8) Red Blood Count 3.97 M/UL (4.70-6.10) Hemoglobin 12.0 G/DL (14.2-18.0) Hematocrit 37.8 % (42.0-52.0) Mean Corpuscular Volume 95 FL (80-99) Mean Corpuscular Hemoglobin 30.3 PG (27.0-31.0) Mean Corpuscular Hemoglobin Concent 31.9 G/DL (32.0-36.0) Red Cell Distribution Width 14.9 % (11.6-14.8) Platelet Count 248 K/UL (150-450) Mean Platelet Volume 6.6 FL (6.5-10.1) Neutrophils (%) (Auto) 82.1 % (45.0-75.0) Lymphocytes (%) (Auto) 10.1 % (20.0-45.0) Monocytes (%) (Auto) 4.7 % (1.0-10.0) Eosinophils (%) (Auto) 2.1 % (0.0-3.0) Basophils (%) (Auto) 0.9 % (0.0-2.0) Sodium Level 147 MMOL/L (136-145) Potassium Level 5.6 MMOL/L (3.5-5.1) Chloride Level 106 MMOL/L (98-107) Carbon Dioxide Level 31 MMOL/L (21-32) Anion Gap 11 mmol/L (5-15) Blood Urea Nitrogen 100 mg/dL (7-18) Creatinine 1.9 MG/DL (0.55-1.30) Estimat Glomerular Filtration Rate mL/min (>60) Glucose Level 176 MG/DL (74-106) Calcium Level 10.9 MG/DL (8.5-10.1) Total Bilirubin 0.3 MG/DL (0.2-1.0) Aspartate Amino Transf (AST/SGOT) 25 U/L (15-37) Alanine Aminotransferase (ALT/SGPT) 15 U/L (12-78) Alkaline Phosphatase 75 U/L (46-116) Total Creatine Kinase 45 U/L (26-308) Creatine Kinase MB 0.9 NG/ML (0.0-3.6) Creatine Kinase MB Relative Index 2.0 Troponin I 0.000 ng/mL (0.000-0.056) Total Protein 9.7 G/DL (6.4-8.2) Albumin 3.2 G/DL (3.4-5.0) Globulin 6.5 g/dL Albumin/Globulin Ratio 0.5 (1.0-2.7) Lipase 180 U/L (73-393) Rhythm Strip Diag. Results EP Interpretation: yes Rate: 77 Rhythm: NSR, no PVC's, no ectopy Chest X-Ray Diagnostic Results Chest X-Ray Diagnostic Results : Chest X-Ray Ordered: Yes # of Views/Limited/Complete: 1 View Indication: Chest Pain EP Interpretation: Yes Interpretation: no consolidation, no effusion, no pneumothorax Impression: No acute disease Electronically Signed by: Deedee Medellin DO Last Vital Signs Date Time Temp Pulse Resp B/P (MAP) Pulse Ox O2 Delivery O2 Flow Rate FiO2 03/25/19 12:49 97.1 93 18 122/67 100 Room Air Status: improved Disposition: PLACE IN OBSERVATION Condition: Deedee Verma DO Mar 25, 2019 13:10
--- NOTE | 2019-03-25 13:29 | NUR ---
ED Nurse Note: XRAY AT BEDSIDE.
[2019-03-25 13:34] LABS: BASOPHILS % (AUTO) 0.9 % (0.0-2.0); EOSINOPHILS % (AUTO) 2.1 % (0.0-3.0); HEMATOCRIT 37.8 % (42.0-52.0); LYMPHOCYTES % (AUTO) 10.1 % (20.0-45.0); MEAN CORPUSCULAR VOLUME 95 FL (80-99); MONOCYTES % (AUTO) 4.7 % (1.0-10.0); NEUTROPHILS % (AUTO) 82.1 % (45.0-75.0); PLATELET COUNT 248 K/UL (150-450); RED BLOOD COUNT 3.97 M/UL (4.70-6.10); RED CELL DISTRIBUTION WIDTH 14.9 % (11.6-14.8)
[2019-03-25 13:35] LABS: APPEARANCE,URINE VERY CLOUDY; BILIRUBIN, URINE NEGATIVE (NEGATIVE); COLOR,URINE PALE YELLOW; GLUCOSE, URINE (UA) NEGATIVE (NEGATIVE); KETONES,URINE NEGATIVE (NEGATIVE); LEUKOCYTE ESTERASE ,URINE 3+ (NEGATIVE); NITRITE,URINE POSITIVE (NEGATIVE); PH,URINE 5 (4.5-8.0); PROTEIN,URINE 3+ (NEGATIVE); UROBILINOGEN,URINE NORMAL MG/DL (0.0-1.0)
[2019-03-25 13:38] LABS: ANION GAP 11 mmol/L (5-15); BLOOD UREA NITROGEN 100 mg/dL (7-18); CALCIUM 10.9 MG/DL (8.5-10.1); CARBON DIOXIDE 31 MMOL/L (21-32); CHLORIDE 106 MMOL/L (98-107); CREATININE 1.9 MG/DL (0.55-1.30); POTASSIUM 5.6 MMOL/L (3.5-5.1); SODIUM 147 MMOL/L (136-145)
--- NOTE | 2019-03-25 13:43 | Diagnostic Imaging Report ---
Indication: Dyspnea Comparison: 02/03/2019 A single view chest radiograph was obtained. Findings: Reticular densities at the lung bases appear chronic and appear worse at the left lung base. These are unchanged. Heart size is normal. Aorta is mildly calcified. Bones are osteopenic. IMPRESSION: No change compared to the previous study. Basilar fibrosis
[2019-03-25 13:51] LABS: ALANINE AMINOTRANSFERASE 15 U/L (12-78); ALBUMIN 3.2 G/DL (3.4-5.0); ALBUMIN/GLOBULIN RATIO 0.5 (1.0-2.7); ALKALINE PHOSPHATASE 75 U/L (46-116); ASPARTATE AMINO TRANSFERASE 25 U/L (15-37); BILIRUBIN,TOTAL 0.3 MG/DL (0.2-1.0); CKMB 0.9 NG/ML (0.0-3.6); CREATINE KINASE 45 U/L (26-308)
--- NOTE | 2019-03-25 15:02 | NUR ---
ED Nurse Note: [facility] CALLED FOR PT TRANSFER. REPORT GIVEN TO JORGE PLUMMER. PT TAKEN UP TO [facility] VIA GURNEY WITH ALL BELONGINGS ACCOMPANIED BY EMT. VSS.
--- NOTE | 2019-03-25 15:23 | NUR ---
NURSE NOTES: pt aox 2, incontinent, sacral stage 1 -appearing pressure ulcer, paged dr jimenez re admission orders awaiting call back
[2019-03-25 15:24] VITALS: BP 138/80
[2019-03-25] MEDS ORDERED: Sodium Polystyrene Sulfonate 15gm Powder GT SCH (15:30)
--- NOTE | 2019-03-25 15:44 | NUR ---
NURSE NOTES: DR BARKLEY AWARE OF K LEVEL, KAYEXALATE ORDERED
--- NOTE | 2019-03-25 15:58 | NUR ---
HAND-OFF: Report given to ZAYNAB PATEL.
--- NOTE | 2019-03-25 16:00 | NUR ---
NURSE NOTES: received report from JORGE Welch. patient newly admitted from ER under Dr.shecter stanton with bloody stool. H/H 12.0/37.8 upon admission. patient alert. oriented to person.verbally responsive. no respiratory distress noted on room air. no pain at this time. IV on RAC running 09/30 ns 65/hr. GT with nephro 45/hr. gt site intact, no s/sx of infection. no residual. tube in place. mutiple skin ecchymosis on general body upon admission. condom cath for incontinent care. potassium 5.6 upon admission. administered kayaxalate via GT as ordered. bed in the lowest position. call light within reach. alarm on. will provide plan of care.
--- NOTE | 2019-03-25 16:24 | NUR ---
CASE MANAGEMENT: INITIAL REVIEW 83 YO M YUVAL FROM [facility] CC: BLOODY DIARRHEA PMHx: CVA. HTN. DM. CKD. ARF. SI:WEAKNESS. DEHYDRATION. T 96.1 HR 94 RR 17 B/P 116/62 SATS 100% ON RA WBC 15 NA 147 K 5.6 BUN 100 CR 1.9 GLU 176 CA 10.9 IS: CXR (Basilar fibrosis) PATIENT ADMITTED TO MED/SURG 03/25/2019 @ 1602 DCP: PATIENT TO BE DISCHARGED TO SNF ONCE MEDICALLY CLEARED. Addendum: 03/25/19 at 1636 by June Darby INTERQUAL
[2019-03-25] MEDS: Sucralfate 1gm tab GT SCH ×2 (17:36→23:26)
[2019-03-25] MEDS: NovoLOG Insulin Flexpen SUBQ SCH ×2 (17:38→20:35)
[2019-03-25] MEDS ORDERED: Docusate 100mg/10ml Liq NG SCH (18:00)
--- NOTE | 2019-03-25 19:20 | NUR ---
HAND-OFF: Report given to JORGE See.
--- NOTE | 2019-03-25 19:22 | NUR ---
NURSE NOTES: Received report from JORGE Pennington. Patient is laying on the bed comfortably breathing unlabored and evenly without signs of distress, discomfort, or SOB. Patient is awake and verbally responsive. No signs of pain noted during the handoff. Patient is receiving feeding through gtube Nepro 1.8 45cc/hr. Patient has right AC 20 g running 1/2 NS 65 cc/hr. Patient has condom cath in place collecting urine for incontinence care. Patient HOB is elevated to 30 degrees for aspiration precaution and to promote comfort. Patient's bed is placed at the lowest with alarm and brakes on. Sides rails are up x 2 promoting safety. Call light is placed within reach. Will continue to monitor.
[2019-03-25 20:09] VITALS: BP 127/59
[2019-03-25 23:43] VITALS: BP 117/56
--- NOTE | 2019-03-25 23:53 | NUR ---
NURSE NOTES: Provided elaine-care and placed optifoam on sacrococcyx stage 1. For prophylactic reasons, bilateral heels are covered with optifoams and elevated. Noticed patient's dry and scaly skin condition on bilateral legs and arms. Moisture cream was applied to prevent skin cracks. Patient currently in stable condition with HOB elevated. Call light within reach. Will continue to monitor.
--- NOTE | 2019-03-26 02:15 | History and Physical Report ---
DATE OF ADMISSION: 03/25/2019 CHIEF COMPLAINT: Rectal bleeding. HISTORY OF PRESENT ILLNESS: This is an 83-year-old Armenian Thai male, who is frequently admitted to this hospital for different reasons. At this time, the patient is admitted for rectal bleeding. PAST MEDICAL HISTORY: 1. Organic brain syndrome. 2. Recurrent gastroesophagitis. 3. Dysnatremia. 4. Hyperkalemia. 5. Chronic kidney disease. 6. Anemia of chronic kidney disease. 7. Type 2 diabetes mellitus. 8. Hypertensive cardiovascular disease. [facility] MEDICATIONS: Tylenol, p.r.n. amlodipine, Epogen, subcutaneous heparin, NovoLog FlexPen, lansoprazole, milk of magnesia, and Carafate. ALLERGIES: No known drug allergies. FAMILY HISTORY: Unable to obtain due to mental status. SOCIAL HISTORY: Unable to obtain due to mental status. REVIEW OF SYSTEMS: Unable to obtain due to mental status. PHYSICAL EXAMINATION: GENERAL: This is an elderly cachectic Alexander male, who is in no acute distress. VITAL SIGNS: Blood pressure 138/80, mean arterial pressure 99, respiratory rate 18, heart rate 103, sinus tachycardia, respirations 18, and temperature is 98 axillary. HEENT: The head is normocephalic and atraumatic. Pupils are equal, round, and reactive to light. He has very poor oral hygiene. NECK: Supple. Trachea midline. There is no lymphadenopathy or thyromegaly. LUNGS: Clear to auscultation and percussion. HEART: Tachycardia. S1 and S2. No rubs, murmurs, or gallops. ABDOMEN: Scaphoid, soft, nontender. He has a G-tube. EXTREMITIES: No clubbing, cyanosis, or edema. NEUROLOGICAL: He is alert, but confused. There were no gross focal findings. LABORATORY AND ANCILLARY DATA: CBC shows white count of 15,000 and hemoglobin 12. Chemistry, sodium 147, potassium 5.6, BUN 100, creatinine 1.9, and glucose 176. Urinalysis, very cloudy, 3+ protein, a positive nitrites, 15 to 20 rbc's, too numerous to count white blood cells. ASSESSMENT: 1. Urosepsis. 2. Volume depletion. 3. Hypernatremia with hyperkalemia. 4. Rectal bleeding. 5. Organic brain syndrome. 6. Recurrent gastroesophagitis. 7. Dysnatremia. 8. Hyperkalemia. 9. Chronic kidney disease. 10. Anemia of chronic kidney disease. 11. Type 2 diabetes mellitus. 12. Hypertensive cardiovascular disease. PLAN: 1. IV fluid rehydration with hypotonic fluids. May need to switch to D5W. 2. Check urine C and S and start intravenous antibiotics. Rule out ESBL. 3. ID consult. 4. GI consult. Ann López M.D. DR: ADALBERTO JOB#: [id number] CC:
[2019-03-26 03:47] VITALS: BP 119/51
[2019-03-26] MEDS: Sucralfate 1gm tab GT SCH ×3 (05:04→17:39)
[2019-03-26] MEDS: NovoLOG Insulin Flexpen SUBQ SCH ×4 (06:02→20:43)
[2019-03-26 06:56] LABS: ANION GAP 8 mmol/L (5-15); BLOOD UREA NITROGEN 94 mg/dL (7-18); CALCIUM 9.2 MG/DL (8.5-10.1); CARBON DIOXIDE 32 MMOL/L (21-32); CHLORIDE 104 MMOL/L (98-107); CREATININE 1.8 MG/DL (0.55-1.30); POTASSIUM 3.3 MMOL/L (3.5-5.1); SODIUM 144 MMOL/L (136-145)
--- NOTE | 2019-03-26 07:41 | NUR ---
HAND-OFF: Report given to Noreen Puente RN.
[2019-03-26 08:00] VITALS: BP 122/58
--- NOTE | 2019-03-26 08:10 | NUR ---
NURSE NOTES: Handoff received from Noreen Haro RN. Patient sleeping in bed, with 1.2 NS running at 65ml hour. Patient does not appear to be in any pain at this time. Call light is in reach and the bed is locked and in the lowest position. Patient has a condom catheter in place and is breathing normally on room air.
--- NOTE | 2019-03-26 08:37 | NUR ---
NURSE NOTES: GI DOCTOR ROUNDED CHANGED TUBE FEEDING RATE FROM 45ML/HR TO 40 PER DOCTORS ORDER.
[2019-03-26] MEDS: Acetaminophen 650mg/20.3ml GT PRN ×2 (11:34→18:12)
--- NOTE | 2019-03-26 11:40 | Cardiology Report ---
APPROVED REPORT EKG Measurement Heart [id number] Normal sinus rhythm Right bundle branch block Voltage criteria for left ventricular hypertrophy Abnormal ECG
--- NOTE | 2019-03-26 11:57 | NUR ---
NURSE NOTES Novolog insulin not administered because patients G tube feeding is stopped until 1400 per doctors orders.
[2019-03-26 12:00] VITALS: BP_SYST 124; BP_DIAS 56; BP_DIAS 66
--- NOTE | 2019-03-26 13:42 | NUR ---
RD ASSESSMENT & RECOMMENDATIONS SEE CARE ACTIVITY FOR COMPLETE ASSESSMENT DAILY ESTIMATED NEEDS: Needs based on Underweight, wound/ 48kg 30-35 kcals/kg 8266-3176 total kcals 1.25-1.5 g protein/kg 60-72 g total protein 25-30 mL/kg 6590-5036 total fluid mLs NUTRITION DIAGNOSIS: * Increased kcal and pro needs r/t underweight status, wound healing as evidenced by pt @71% [place] Body Weight, BMI underweight per guidelines, admitted w/ stage 1 wound @ sacrococcyx per RN. * Swallowing difficulty R/T dysphagia as evidenced by pt is PEG dep CURRENT TF:Nepro @ 40ml/hr x 20 hrs ENTERAL NUTRITION RECOMMENDATIONS: Nepro @ 45ml/hr x 20 hrs to provide 900ml, 1620kcal, 72g prot, 655ml free water * As medically appropriate, increase goal rate to 45ml/hr * HOB over 30 degrees/ water flush per MD ADDITIONAL RECOMMENDATIONS: * Calibrated bedscale wt for accurate CBW -> weekly wt monitoring given underweight status * Monitor lytes closely (elev K -> now low) * Wound healing: add Vit C 250mg QD, Jermaine 1pkt BID . . .
--- NOTE | 2019-03-26 14:04 | NUR ---
NURSE NOTES:WOUND CARE NOTES:Pt presented on admission with non-blanchable erythema with shearing sacrum, R and L buttocks.Dry skin with several scratch melo noted to back. Non-blanchable erythema with fluctuance noted to R heel. Non-blanchable erythema with fluctuance noted to L heel. Pt denied tenderness when R or L heel palpated. No other skin concerns noted. Tx.Plan: Apply Moisture Barrier Paste to Sacrum. Cover with Optifoam drsg. Change every 3 days and prn. Apply Moisture Barrier Paste to bilat ischium and scrotum with each incontinence care. Apply [place] Skin Barrier to both heels. Cover each heel with Optifoam drsg. Change every 7 days and prn. Apply Remedy Lotion to dry skin Daily. Reposition at least every 2hours or as tolerated. Off-load heels with pillow.
--- NOTE | 2019-03-26 14:53 | General Progress Note ---
Assessment/Plan Assessment/Plan: Rectal Bleeding - stopped. Check CBC Hypernatremia, Hyperkalemia - on IVF . See orders. Subjective Allergies: Coded Allergies: No Known Allergies (Verified , 12/28/06) Subjective Confused Objective Last 24 Hour Vital Signs Date Time Temp Pulse Resp B/P (MAP) Pulse Ox O2 Delivery O2 Flow Rate FiO2 03/26/19 12:00 97.6 96 17 124/56 (78) 96 03/26/19 12:00 97.6 96 17 124/66 (85) 03/26/19 09:00 Room Air 03/26/19 08:55 82 122/58 03/26/19 08:00 97.3 82 12 122/58 (79) 98 03/26/19 03:47 97.8 85 20 119/51 (73) 98 03/25/19 23:43 98.0 90 20 117/56 (76) 98 03/25/19 21:00 Room Air 03/25/19 20:09 96.6 91 20 127/59 (81) 98 03/25/19 15:39 Room Air 03/25/19 15:24 98.0 103 18 138/80 (99) 98 03/25/19 15:03 97.2 94 20 133/50 100 Room Air Intake and Output 03/25/19 03/26/19 18:59 06:59 Intake Total 265 ml 1510 ml Output Total 400 ml Balance 265 ml 1110 ml Intake Free Water 255 ml IV Total 130 ml 715 ml Tube Feeding 135 ml 540 ml Output Urine Total 400 ml # Voids 1 # Bowel Movements 6 Laboratory Tests 03/26/19 04:50: Sodium Level 144, Potassium Level 3.3L, Chloride Level 104, Carbon Dioxide Level 32, Anion Gap 8, Blood Urea Nitrogen 94H, Creatinine 1.8H, Estimat Glomerular Filtration Rate , Glucose Level 182H, Calcium Level 9.2 03/26/19 10:10: Stool Occult Blood Positive Height (Feet): 5 Height (Inches): 9.00 Weight (Pounds): 130 Objective CV RR Lungs CTA Abd SNT. PEG OK E No CCE Ann López MD Mar 26, 2019 14:53
[2019-03-26 16:00] VITALS: BP 117/52
--- NOTE | 2019-03-26 16:15 | Consultation ---
DATE OF CONSULTATION: 03/26/2019 CONSULTING PHYSICIAN: Kentrell Brooks M.D. CHIEF COMPLAINT: GI bleeding. HISTORY OF PRESENT ILLNESS: Most of the history per chart. This is a Georgian male, known to me from multiple admissions to this hospital and other hospitals. I know him very well with past medical history of dysphagia requiring G-tube placement, history of upper GI bleeding from esophagitis, had a recent endoscopy done, history of pancreatitis from hypertriglyceridemia, admitted to the hospital with possible GI bleeding and black stools. His last endoscopy was done in February 26, 2019, which showed evidence of, at that time he had EGD and GJ tube conversion. PAST MEDICAL HISTORY: 1. Diabetes. 2. Dysphagia with G-tube. 3. History of hypertriglyceridemia induced pancreatitis. 4. Anemia. 5. Esophagitis. REVIEW OF SYSTEMS: Limited. ALLERGIES: No known drug allergies. MEDICATIONS: Please see medication reconciliation list. SOCIAL HISTORY: Currently lives in a [facility]. No recent history of tobacco, alcohol, or drug abuse. PHYSICAL EXAMINATION: VITAL SIGNS: Temperature is afebrile at 97.3, pulse is 82, respirations 12, blood pressure is 122/58. HEENT: Normocephalic and atraumatic. Sclerae anicteric. NECK: Supple. No evidence of lymphadenopathy. CARDIOVASCULAR: Regular rate and rhythm. Plus S1 and S2. No obvious murmur. LUNGS: Clear to auscultation bilaterally. ABDOMEN: Positive bowel sounds. Soft and nontender. G-tube in place. No rebound. No guarding. No peritoneal sign. EXTREMITIES: No cyanosis. No clubbing. No edema. LABORATORY DATA: White count is 15,000, hemoglobin 12, hematocrit 37, platelets are 248. Chemistry, sodium 144, potassium 3.3, BUN is 94, creatinine is 1.8, glucose is 182. ASSESSMENT: This is an 83-year-old Georgian male with acute seems to be chronic renal insufficiency with acute renal failure with BUN of 94 and creatinine of 1.8, also possible GI bleeding, diarrhea. PLAN: Currently getting tube feeding. Hydrate with fluids. Repeat laboratories. Send stool for OB. Send stool for C. difficile. Hold Colace given diarrhea. Start the patient on Prevacid per G-tube. Continue on Carafate. Consider GI procedures if needed. I want to thank Dr. López for this kind referral. Kentrell Brooks M.D. DR: MANDEEP JOB#: [id number] CC: Ann López M.D.; Fax#: [phone]
[2019-03-26] MEDS: 1/2NS w/KCl 20mEq 1000ml 1,000 ML IV SCH (17:53)
--- NOTE | 2019-03-26 19:25 | NUR ---
HAND-OFF: Report given to JORGE Peraza.
--- NOTE | 2019-03-26 19:27 | NUR ---
NURSE NOTES: Received patient asleep in bed, no s/s of acute distress. IV access asymptomatic, running IVF at 75ml/hr. G tube feeding noted, continuous. Condom catheter noted, patent and draining, collection bag secured and below bladder. Will monitor blood glucose closely.
[2019-03-26 20:00] VITALS: BP 115/70
[2019-03-27] VITALS: BP 135/61
[2019-03-27] MEDS: Sucralfate 1gm tab GT SCH ×4 (00:13→17:06)
[2019-03-27 04:00] VITALS: BP 137/68
[2019-03-27] MEDS: 1/2NS w/KCl 20mEq 1000ml 1,000 ML IV SCH ×3 (05:19→11:26)
[2019-03-27] MEDS: NovoLOG Insulin Flexpen SUBQ SCH ×4 (05:52→21:15)
[2019-03-27 06:33] LABS: HEMATOCRIT 31.8 % (42.0-52.0); HEMOGLOBIN 10.2 G/DL (14.2-18.0); MEAN CORPUSCULAR VOLUME 97 FL (80-99); RED BLOOD COUNT 3.29 M/UL (4.70-6.10); RED CELL DISTRIBUTION WIDTH 14.3 % (11.6-14.8); WHITE BLOOD COUNT 12.7 K/UL (4.8-10.8)
[2019-03-27 06:36] LABS: ALANINE AMINOTRANSFERASE 12 U/L (12-78); ALBUMIN 3.2 G/DL (3.4-5.0); ALBUMIN/GLOBULIN RATIO 0.6 (1.0-2.7); ALKALINE PHOSPHATASE 76 U/L (46-116); ANION GAP 8 mmol/L (5-15); ASPARTATE AMINO TRANSFERASE 21 U/L (15-37); BILIRUBIN,TOTAL 0.2 MG/DL (0.2-1.0); BLOOD UREA NITROGEN 76 mg/dL (7-18); CALCIUM 9.3 MG/DL (8.5-10.1); CARBON DIOXIDE 32 MMOL/L (21-32); CHLORIDE 103 MMOL/L (98-107); CHOLESTEROL 201 MG/DL (< 200); CREATININE 1.7 MG/DL (0.55-1.30); HDL CHOLESTEROL 39 MG/DL (40-60); POTASSIUM 3.6 MMOL/L (3.5-5.1); SODIUM 143 MMOL/L (136-145); TRIGLYCERIDES 443 MG/DL (30-150)
--- NOTE | 2019-03-27 06:53 | NUR ---
HAND-OFF: Report given to JORGE Melendez.
[2019-03-27 08:00] VITALS: BP 126/55
[2019-03-27 08:44] LABS: PLATELET COUNT 162 K/UL (150-450)
--- NOTE | 2019-03-27 11:03 | General Progress Note ---
Assessment/Plan Assessment/Plan: Rectal Bleeding - stopped. Check CBC Hypernatremia, Hyperkalemia - on IVF . See orders. 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 Taper off IVF. Subjective Allergies: Coded Allergies: No Known Allergies (Verified , 12/28/06) Subjective Confused Objective Last 24 Hour Vital Signs Date Time Temp Pulse Resp B/P (MAP) Pulse Ox O2 Delivery O2 Flow Rate FiO2 03/27/19 09:00 Room Air 03/27/19 08:48 83 126/55 03/27/19 08:00 98.1 83 18 126/55 (78) 99 03/27/19 04:00 98.4 87 18 137/68 (91) 100 03/27/19 00:00 98.1 92 18 135/61 (85) 100 03/26/19 21:11 Room Air 03/26/19 20:00 98.1 88 16 115/70 (85) 97 03/26/19 16:00 96.4 85 17 117/52 (73) 97 03/26/19 12:00 97.6 96 17 124/56 (78) 96 03/26/19 12:00 97.6 96 17 124/66 (85) Intake and Output 03/26/19 03/27/19 19:00 07:00 Intake Total 840 ml 1405 ml Output Total 600 ml Balance 240 ml 1405 ml Intake Free Water 510 ml 255 ml IV Total 750 ml Tube Feeding 330 ml 400 ml Output Urine Total 600 ml # Voids 3 # Bowel Movements 4 2 Laboratory Tests 03/27/19 05:40: White Blood Count 12.7H, Red Blood Count 3.29L, Hemoglobin 10.2L, Hematocrit 31.8L, Mean Corpuscular Volume 97, Mean Corpuscular Hemoglobin 31.1H, Mean Corpuscular Hemoglobin Concent 32.1, Red Cell Distribution Width 14.3, Platelet Count 162, Mean Platelet Volume 9.1, Neutrophils (%) (Auto) , Lymphocytes (%) ( Auto) , Monocytes (%) (Auto) , Eosinophils (%) (Auto) , Basophils (%) (Auto) , Differential Total Cells Counted 100, Neutrophils % (Manual) 75, Lymphocytes % ( Manual) 10L, Monocytes % (Manual) 7, Eosinophils % (Manual) 8H, Basophils % ( Manual) 0, Band Neutrophils 0, Platelet Estimate Adequate, Platelet Morphology , Clumped Platelets 1+, Anisocytosis 1+, Macrocytosis 1+, Sodium Level 143, Potassium Level 3.6, Chloride Level 103, Carbon Dioxide Level 32, Anion Gap 8, Blood Urea Nitrogen 76H, Creatinine 1.7H, Estimat Glomerular Filtration Rate , Glucose Level 172H, Calcium Level 9.3, Magnesium Level 2.1, Total Bilirubin 0.2 , Aspartate Amino Transf (AST/SGOT) 21, Alanine Aminotransferase (ALT/SGPT) 12, Alkaline Phosphatase 76, Total Protein 8.3H, Albumin 3.2L, Globulin 5.1, Albumin /Globulin Ratio 0.6L, Triglycerides Level 443H, Cholesterol Level 201H, LDL Cholesterol 102H, HDL Cholesterol 39L, Cholesterol/HDL Ratio 5.2H Height (Feet): 5 Height (Inches): 9.00 Weight (Pounds): 130 Objective CV RR Lungs CTA Abd SNT. PEG OK E No CCE Ann López MD Mar 27, 2019 11:03
[2019-03-27 12:00] VITALS: BP 121/62
[2019-03-27] MEDS: Acetaminophen 650mg/20.3ml GT PRN (12:07)
--- NOTE | 2019-03-27 13:57 | NUR ---
NURSE NOTES: PT AXOX1, CALM, RESTING IN BED. IN NO APPARENT DISTRESS AT THIS TIME. BED IN LOWEST POSITION WITH BEDSIDE RAILS X2 RAISED. HOB ELEVATED AND IN HIGH-MARTINI'S POSITION FOR ASPIRATION PRECAUTIONS. WILL CONTINUE TO MONITOR.
[2019-03-27 16:00] VITALS: BP 119/71
--- NOTE | 2019-03-27 19:07 | NUR ---
HAND-OFF: Report given to Nishi JONES RN.
--- NOTE | 2019-03-27 19:26 | NUR ---
NURSE NOTES: Received patient asleep in bed, no s/s of acute distress. IV access asymptomatic, running IVF at 50ml/hr. G tube feeding noted, continuous. Condom catheter noted, patent and draining, collection bag secured and below bladder. Will monitor blood glucose and diarrhea closely.
[2019-03-27 20:00] VITALS: BP 124/68
--- NOTE | 2019-03-27 21:49 | General Progress Note ---
Assessment/Plan Assessment/Plan: Assessment - OB (+) stool - Anemia - h/o GERD - Dysphagia, GT Recommendations - continue TF - Monitor H&H - possible endoscopy per Dr. Brooks Subjective Allergies: Coded Allergies: No Known Allergies (Verified , 12/28/06) Subjective above noted tolerating TF OB (+) Objective Last 24 Hour Vital Signs Date Time Temp Pulse Resp B/P (MAP) Pulse Ox O2 Delivery O2 Flow Rate FiO2 03/27/19 20:00 97.8 83 20 124/68 (86) 100 03/27/19 16:00 98.1 79 19 119/71 (87) 96 03/27/19 12:00 97.4 87 18 121/62 (81) 98 03/27/19 09:00 Room Air 03/27/19 08:48 83 126/55 03/27/19 08:00 98.1 83 18 126/55 (78) 99 03/27/19 04:00 98.4 87 18 137/68 (91) 100 03/27/19 00:00 98.1 92 18 135/61 (85) 100 Intake and Output 03/26/19 03/27/19 19:00 07:00 Intake Total 840 ml 1405 ml Output Total 600 ml Balance 240 ml 1405 ml Intake Free Water 510 ml 255 ml IV Total 750 ml Tube Feeding 330 ml 400 ml Output Urine Total 600 ml # Voids 3 # Bowel Movements 4 2 Laboratory Tests 03/27/19 05:40: White Blood Count 12.7H, Red Blood Count 3.29L, Hemoglobin 10.2L, Hematocrit 31.8L, Mean Corpuscular Volume 97, Mean Corpuscular Hemoglobin 31.1H, Mean Corpuscular Hemoglobin Concent 32.1, Red Cell Distribution Width 14.3, Platelet Count 162, Mean Platelet Volume 9.1, Neutrophils (%) (Auto) , Lymphocytes (%) ( Auto) , Monocytes (%) (Auto) , Eosinophils (%) (Auto) , Basophils (%) (Auto) , Differential Total Cells Counted 100, Neutrophils % (Manual) 75, Lymphocytes % ( Manual) 10L, Monocytes % (Manual) 7, Eosinophils % (Manual) 8H, Basophils % ( Manual) 0, Band Neutrophils 0, Platelet Estimate Adequate, Platelet Morphology , Clumped Platelets 1+, Anisocytosis 1+, Macrocytosis 1+, Sodium Level 143, Potassium Level 3.6, Chloride Level 103, Carbon Dioxide Level 32, Anion Gap 8, Blood Urea Nitrogen 76H, Creatinine 1.7H, Estimat Glomerular Filtration Rate , Glucose Level 172H, Calcium Level 9.3, Magnesium Level 2.1, Total Bilirubin 0.2 , Aspartate Amino Transf (AST/SGOT) 21, Alanine Aminotransferase (ALT/SGPT) 12, Alkaline Phosphatase 76, Total Protein 8.3H, Albumin 3.2L, Globulin 5.1, Albumin /Globulin Ratio 0.6L, Triglycerides Level 443H, Cholesterol Level 201H, LDL Cholesterol 102H, HDL Cholesterol 39L, Cholesterol/HDL Ratio 5.2H Height (Feet): 5 Height (Inches): 9.00 Weight (Pounds): 130 Objective Thin man NCAT supple CTA RR abd soft flat no edema OBS (-) Paula Wang MD Mar 27, 2019 21:49
[2019-03-28] VITALS: BP 128/57
[2019-03-28] MEDS: Sucralfate 1gm tab GT SCH ×4 (00:27→17:49)
[2019-03-28 04:00] VITALS: BP 130/60
[2019-03-28] MEDS: NovoLOG Insulin Flexpen SUBQ SCH ×4 (06:06→21:00)
--- NOTE | 2019-03-28 07:16 | NUR ---
HAND-OFF: Report given to JORGE Melendez.
[2019-03-28 07:35] LABS: ANION GAP 7 mmol/L (5-15); BLOOD UREA NITROGEN 56 mg/dL (7-18); CALCIUM 9.2 MG/DL (8.5-10.1); CARBON DIOXIDE 30 MMOL/L (21-32); CHLORIDE 106 MMOL/L (98-107); CREATININE 1.5 MG/DL (0.55-1.30); POTASSIUM 3.9 MMOL/L (3.5-5.1); SODIUM 143 MMOL/L (136-145)
[2019-03-28 08:00] VITALS: BP 124/63
[2019-03-28] MEDS: 1/2NS w/KCl 20mEq 1000ml 1,000 ML IV SCH (08:08)
--- NOTE | 2019-03-28 09:00 | NUR ---
NURSE NOTES: PT TOLERATING GTUBE FEEDING WELL, NO RESIDUALS NOTED. GTUBE DRESSING CHANGED. WILL CONTINUE TO MONITOR.
[2019-03-28 12:00] VITALS: BP 129/69
--- NOTE | 2019-03-28 12:48 | General Progress Note ---
Assessment/Plan Assessment/Plan: Rectal Bleeding - recurrinG! GI to advise. Check CBC Hypernatremia, Hyperkalemia - on IVF . See orders. 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 Taper off IVF. Subjective Allergies: Coded Allergies: No Known Allergies (Verified , 12/28/06) Subjective Confused. Per RN a lot of bloody stool! Objective Last 24 Hour Vital Signs Date Time Temp Pulse Resp B/P (MAP) Pulse Ox O2 Delivery O2 Flow Rate FiO2 03/28/19 12:00 98.0 89 18 129/69 (89) 97 03/28/19 09:00 Room Air 03/28/19 08:29 82 124/63 03/28/19 08:00 98.0 82 18 124/63 (83) 99 03/28/19 04:00 97.9 89 22 130/60 (83) 100 03/28/19 00:00 98.4 87 18 128/57 (80) 100 03/27/19 22:08 Room Air 03/27/19 20:00 97.8 83 20 124/68 (86) 100 03/27/19 16:00 98.1 79 19 119/71 (87) 96 Intake and Output 03/27/19 03/28/19 19:00 07:00 Intake Total 1170 ml 1100 ml Balance 1170 ml 1100 ml Intake Free Water 315 ml 250 ml IV Total 575 ml 450 ml Tube Feeding 280 ml 400 ml # Voids 4 # Bowel Movements 5 Laboratory Tests 03/28/19 06:25: Sodium Level 143, Potassium Level 3.9, Chloride Level 106, Carbon Dioxide Level 30, Anion Gap 7, Blood Urea Nitrogen 56H, Creatinine 1.5H, Estimat Glomerular Filtration Rate , Glucose Level 125H, Calcium Level 9.2 Height (Feet): 5 Height (Inches): 9.00 Weight (Pounds): 130 Objective CV RR Lungs CTA Abd SNT. PEG OK E No CCE Ann López MD Mar 28, 2019 12:48
[2019-03-28 16:00] VITALS: BP 124/58
--- NOTE | 2019-03-28 16:07 | General Progress Note ---
Assessment/Plan Assessment/Plan: Assessment - OB (+) stool - Hematochezia, GI Bleed - Anemia, decreasing - h/o GERD - Dysphagia, GT Recommendations - Hold feeds - GI preparation - EGD / colon in am - emergency consent for GIB and risk to life - Monitor H&H and transfuse PRN Subjective Allergies: Coded Allergies: No Known Allergies (Verified , 12/28/06) Subjective above noted tolerating TF multiple bouts of BRBPR per RN yesterday and today no family on record confirmed with RN - no family Objective Last 24 Hour Vital Signs Date Time Temp Pulse Resp B/P (MAP) Pulse Ox O2 Delivery O2 Flow Rate FiO2 03/28/19 12:00 98.0 89 18 129/69 (89) 97 03/28/19 09:00 Room Air 03/28/19 08:29 82 124/63 03/28/19 08:00 98.0 82 18 124/63 (83) 99 03/28/19 04:00 97.9 89 22 130/60 (83) 100 03/28/19 00:00 98.4 87 18 128/57 (80) 100 03/27/19 22:08 Room Air 03/27/19 20:00 97.8 83 20 124/68 (86) 100 Intake and Output 03/27/19 03/28/19 19:00 07:00 Intake Total 1170 ml 1100 ml Balance 1170 ml 1100 ml Intake Free Water 315 ml 250 ml IV Total 575 ml 450 ml Tube Feeding 280 ml 400 ml # Voids 4 # Bowel Movements 5 Laboratory Tests 03/28/19 06:25: Sodium Level 143, Potassium Level 3.9, Chloride Level 106, Carbon Dioxide Level 30, Anion Gap 7, Blood Urea Nitrogen 56H, Creatinine 1.5H, Estimat Glomerular Filtration Rate , Glucose Level 125H, Calcium Level 9.2 Height (Feet): 5 Height (Inches): 9.00 Weight (Pounds): 130 Objective Thin man NCAT supple CTA RR abd soft flat no edema OBS (-) Paula Wang MD Mar 28, 2019 16:07
--- NOTE | 2019-03-28 16:11 | NUR ---
NURSE NOTES: RN RECEIVED TELEPHONE ORDER FROM DR BILLINGS TO HOLD GTUBE FEEDING NOW TO PREP FOR COLONOSCOPY TOMORROW.
--- NOTE | 2019-03-28 16:20 | NUR ---
NURSE NOTES: RN SPOKE TO DR BARKLEY AND MADE AWARE OF DR BILLINGS'S ORDER FOR COLONOSCOPY TOMORROW. PT HAS NO FAMILY OR NEXT OF KIN. NEED 2 MDs TO CONSENT FOR PROCEDURE. DR BARKLEY VERBALIZED UNDERSTANDING.
[2019-03-28] MEDS ORDERED: Nulytely 4L ORAL ONE (17:00)
--- NOTE | 2019-03-28 18:39 | NUR ---
NURSE NOTES: PT STARTED ON NULYTELY VIA [employer] ORDERED. PT WITH MULTIPLE LIQUID RED STOOLS. PT FOUND YELLING MULTIPLE TIMES. WHEN RN INQUIRES IF PT IS IN PAIN, PT YELLS "I WANT TO GO HOME!". IN NO APPARENT DISTRESS AT THIS TIME. IN HIGH-MARTINI'S POSITION WITH HOB ELEVATED. BED IN LOWEST POSITION WITH BEDSIDE RAILS X3 RAISED. WILL CONTINUE TO MONITOR.
--- NOTE | 2019-03-28 19:06 | NUR ---
HAND-OFF: Report given to Frank BREWSTER RN.
--- NOTE | 2019-03-28 19:20 | NUR ---
NURSE NOTES: Pt received awake, bed in lowest position, head of bed elevated, gtube feeding on hold pt is scheduled for colonoscopy and taking [place] via g tube 8oz q 15min, will continue to monitor
[2019-03-28 20:00] VITALS: BP 132/64
[2019-03-29] VITALS (10 sets, daily range): BP systolic 121–154; BP diastolic 58–70
[2019-03-29] MEDS: Sucralfate 1gm tab GT SCH ×5 (00:41→17:06)
[2019-03-29] MEDS: 1/2NS w/KCl 20mEq 1000ml 1,000 ML IV SCH (03:44)
[2019-03-29] MEDS ORDERED: Fleet's Enema 133ml RECTAL ONE (06:30)
[2019-03-29] MEDS: NovoLOG Insulin Flexpen SUBQ SCH ×5 (06:30→20:41)
--- NOTE | 2019-03-29 07:46 | NUR ---
HAND-OFF: Report given to Jeniffer Mai RN.
[2019-03-29 09:56] LABS: BASOPHILS % (AUTO) 0.7 % (0.0-2.0); EOSINOPHILS % (AUTO) 3.4 % (0.0-3.0); HEMATOCRIT 32.3 % (42.0-52.0); HEMOGLOBIN 10.3 G/DL (14.2-18.0); LYMPHOCYTES % (AUTO) 11.4 % (20.0-45.0); MEAN CORPUSCULAR VOLUME 95 FL (80-99); MONOCYTES % (AUTO) 6.8 % (1.0-10.0); NEUTROPHILS % (AUTO) 77.7 % (45.0-75.0); PLATELET COUNT 284 K/UL (150-450); RED BLOOD COUNT 3.38 M/UL (4.70-6.10); RED CELL DISTRIBUTION WIDTH 14.2 % (11.6-14.8); WHITE BLOOD COUNT 13.4 K/UL (4.8-10.8)
[2019-03-29 10:15] LABS: ANION GAP 10 mmol/L (5-15); BLOOD UREA NITROGEN 37 mg/dL (7-18); CALCIUM 9.1 MG/DL (8.5-10.1); CARBON DIOXIDE 24 MMOL/L (21-32); CHLORIDE 103 MMOL/L (98-107); CREATININE 1.3 MG/DL (0.55-1.30); POTASSIUM 4.5 MMOL/L (3.5-5.1); SODIUM 137 MMOL/L (136-145)
--- NOTE | 2019-03-29 10:21 | General Progress Note ---
Assessment/Plan Problem List: (1) Anemia ICD Codes: D64.9 - Anemia, unspecified SNOMED: 672952462 (2) GI bleeding ICD Codes: K92.2 - Gastrointestinal hemorrhage, unspecified SNOMED: 31817075 Assessment/Plan: patient has active GIB needs EGd and colonoscopy no family member available for consent d/w PMD will plan MD consent Subjective ROS Limited/Unobtainable: No Allergies: Coded Allergies: No Known Allergies (Verified , 12/28/06) Objective Last 24 Hour Vital Signs Date Time Temp Pulse Resp B/P (MAP) Pulse Ox O2 Delivery O2 Flow Rate FiO2 03/29/19 08:34 88 121/60 03/29/19 08:00 97.8 88 18 121/60 (80) 100 03/29/19 04:00 97.3 84 18 131/69 (89) 97 03/29/19 00:00 96.6 82 18 138/66 (90) 98 03/28/19 21:00 Room Air 03/28/19 20:00 97.5 82 17 132/64 (86) 97 03/28/19 16:00 98.1 82 18 124/58 (80) 99 03/28/19 12:00 98.0 89 18 129/69 (89) 97 Intake and Output 03/28/19 03/29/19 19:00 07:00 Intake Total 1240 ml Balance 1240 ml Intake Free Water 540 ml IV Total 500 ml Tube Feeding 200 ml # Voids 3 # Bowel Movements 3 Laboratory Tests 03/29/19 08:05: White Blood Count 13.4H, Red Blood Count 3.38L, Hemoglobin 10.3L, Hematocrit 32.3L, Mean Corpuscular Volume 95, Mean Corpuscular Hemoglobin 30.5, Mean Corpuscular Hemoglobin Concent 32.0, Red Cell Distribution Width 14.2, Platelet Count 284, Mean Platelet Volume 6.4L, Neutrophils (%) (Auto) 77.7H, Lymphocytes (%) (Auto) 11.4L, Monocytes (%) (Auto) 6.8, Eosinophils (%) (Auto) 3.4H, Basophils (%) (Auto) 0.7, Sodium Level [Pending], Potassium Level [Pending], Chloride Level [Pending], Carbon Dioxide Level [Pending], Blood Urea Nitrogen [ Pending], Creatinine [Pending], Estimat Glomerular Filtration Rate [Pending], Glucose Level [Pending], Calcium Level [Pending] Height (Feet): 5 Height (Inches): 5.00 Weight (Pounds): 130 General Appearance: lethargic EENT: normal ENT inspection Neck: supple Cardiovascular: normal rate Respiratory/Chest: decreased breath sounds Abdomen: normal bowel sounds, non tender, soft Extremities: non-tender Kentrell Brooks MD Mar 29, 2019 10:21
[2019-03-29] MEDS ORDERED: NS 500ML IVPB ONE (10:35)
--- NOTE | 2019-03-29 10:48 | Endoscopy Procedure Note ---
Endoscopy Procedure Note General Indication for Procedure: gib Procedures Performed: EGD, colonoscopy Operative Findings/Diagnosis: gastritis, hemorrhoids Specimen: yes Pt Tolerated Procedure Well: Yes Estimated Blood Loss: none Anesthesia Anesthesiologist: kristy Anesthesia: MAC Inserted Devices Implant(s) used?: No GI Core Measures 50 yrs or older w/o bx or poly: Not Applicable 10yrs. F/U recommended: Not Applicable Kentrell Brooks MD Mar 29, 2019 10:48
--- NOTE | 2019-03-29 10:57 | Anethesia Preoperative Eval ---
Anesthesia Pre-op PMH/ROS General Date of Evaluation: Mar 29, 2019 Time of Evaluation: 10:40 Anesthesiologist: Amina ASA Score: ASA 4 Mallampati Score Class I : Soft palate, uvula, fauces, pillars visible Class II: Soft palate, uvula, fauces visible Class III: Soft palate, base of uvula visible Class IV: Only hard plate visible Mallampati Classification: Class III Surgeon: Todd Diagnosis: Gi bleed Surgical Procedure: EGD Colonoscopy Anesthesia History: none Family History: no anesthesia problems Allergies: Coded Allergies: No Known Allergies (Verified , 12/28/06) Medications: see eMAR Patient NPO?: Yes Past Medical History Cardiovascular: Reports: HTN; Denies: CAD, ID, valve dz, arrhythmia, other Pulmonary: Denies: asthma, COPD, JEOVANY, other Gastrointestinal/Genitourinary: 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 Exam Physician Exam Last Vital Signs Date Time Temp Pulse Resp B/P (MAP) Pulse Ox O2 Delivery O2 Flow Rate FiO2 03/29/19 09:00 Room Air 03/29/19 08:34 88 121/60 03/29/19 08:00 97.8 18 100 Constitutional: NAD Neurologic: other - unable to obtaine Cardiovascular: RRR, no M/R/G Respiratory: CTA Gastrointestinal: S/NT/ND Airway Exam Mallampati Score: Class III MO: limited Neck: stiff ROM: limited Teeth: missing Dentures: no upper, no lower Anesthesia Pre-op A/P Labs Hematology Test 03/29/19 08:05 White Blood Count 13.4 K/UL (4.8-10.8) H Red Blood Count 3.38 M/UL (4.70-6.10) L Hemoglobin 10.3 G/DL (14.2-18.0) L Hematocrit 32.3 % (42.0-52.0) L Mean Corpuscular Volume 95 FL (80-99) Mean Corpuscular Hemoglobin 30.5 PG (27.0-31.0) Mean Corpuscular Hemoglobin Concent 32.0 G/DL (32.0-36.0) Red Cell Distribution Width 14.2 % (11.6-14.8) Platelet Count 284 K/UL (150-450) Mean Platelet Volume 6.4 FL (6.5-10.1) L Neutrophils (%) (Auto) 77.7 % (45.0-75.0) H Lymphocytes (%) (Auto) 11.4 % (20.0-45.0) L Monocytes (%) (Auto) 6.8 % (1.0-10.0) Eosinophils (%) (Auto) 3.4 % (0.0-3.0) H Basophils (%) (Auto) 0.7 % (0.0-2.0) Chemistry Test 03/29/19 08:05 Sodium Level 137 MMOL/L (136-145) Potassium Level 4.5 MMOL/L (3.5-5.1) Chloride Level 103 MMOL/L (98-107) Carbon Dioxide Level 24 MMOL/L (21-32) Anion Gap 10 mmol/L (5-15) Blood Urea Nitrogen 37 mg/dL (7-18) H Creatinine 1.3 MG/DL (0.55-1.30) Estimat Glomerular Filtration Rate mL/min (>60) Glucose Level 78 MG/DL (74-106) Calcium Level 9.1 MG/DL (8.5-10.1) Studies Pre-op Studies: EKG - SR Risk Assessment & Plan Assessment: ASA 4 Plan: MAC Status Change Before Surgery: Shamar Reardon MD Mar 29, 2019 10:57
[2019-03-29] MEDS ORDERED: Propofol 200mg/20ml IV ONE (11:00)
--- NOTE | 2019-03-29 11:10 | Immediate Post-Op Evaluation ---
Immediate Post-Op Evalulation Immediate Post-Op Evalulation Procedure: EGD Colonoscopy Date of Evaluation: Mar 29, 2019 Time of Evaluation: 11:08 IV Fluids: 200 Blood Products: none Estimated Blood Loss: none Urinary Output: none Blood Pressure Systolic: 116 Blood Pressure Diastolic: 68 Pulse Rate: 74 Respiratory Rate: 20 O2 Sat by Pulse Oximetry: 98 Temperature (Fahrenheit): 97.7 Pain Score (1-10): 1 Nausea: No Vomiting: No Complications none Patient Status: reacts, patent, none Hydration Status: adequate Shamar Huynh MD Mar 29, 2019 11:10
--- NOTE | 2019-03-29 11:21 | General Progress Note ---
Assessment/Plan Assessment/Plan: Rectal Bleeding - recurrinG! GI to advise. Check CBC Hypernatremia, Hyperkalemia - on IVF . See orders. 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 Taper off IVF DW GI. Needs Urgent Colonoscopy.. Subjective Allergies: Coded Allergies: No Known Allergies (Verified , 12/28/06) Subjective Confused. Per RN a lot of bloody stools! Objective Last 24 Hour Vital Signs Date Time Temp Pulse Resp B/P (MAP) Pulse Ox O2 Delivery O2 Flow Rate FiO2 03/29/19 11:15 74 14 144/68 100 Nasal Cannula 3 03/29/19 11:10 97.1 75 22 138/70 100 Nasal Cannula 3 03/29/19 11:10 74 20 98 03/29/19 09:00 Room Air 03/29/19 08:34 88 121/60 03/29/19 08:00 97.8 88 18 121/60 (80) 100 03/29/19 04:00 97.3 84 18 131/69 (89) 97 03/29/19 00:00 96.6 82 18 138/66 (90) 98 03/28/19 21:00 Room Air 03/28/19 20:00 97.5 82 17 132/64 (86) 97 03/28/19 16:00 98.1 82 18 124/58 (80) 99 03/28/19 12:00 98.0 89 18 129/69 (89) 97 Intake and Output 03/28/19 03/29/19 19:00 07:00 Intake Total 1240 ml Balance 1240 ml Intake Free Water 540 ml IV Total 500 ml Tube Feeding 200 ml # Voids 3 # Bowel Movements 3 Laboratory Tests 03/29/19 08:05: White Blood Count 13.4H, Red Blood Count 3.38L, Hemoglobin 10.3L, Hematocrit 32.3L, Mean Corpuscular Volume 95, Mean Corpuscular Hemoglobin 30.5, Mean Corpuscular Hemoglobin Concent 32.0, Red Cell Distribution Width 14.2, Platelet Count 284, Mean Platelet Volume 6.4L, Neutrophils (%) (Auto) 77.7H, Lymphocytes (%) (Auto) 11.4L, Monocytes (%) (Auto) 6.8, Eosinophils (%) (Auto) 3.4H, Basophils (%) (Auto) 0.7, Sodium Level 137, Potassium Level 4.5, Chloride Level 103, Carbon Dioxide Level 24, Anion Gap 10, Blood Urea Nitrogen 37H, Creatinine 1.3, Estimat Glomerular Filtration Rate , Glucose Level 78, Calcium Level 9.1 Height (Feet): 5 Height (Inches): 5.00 Weight (Pounds): 130 Objective CV RR Lungs CTA Abd SNT. PEG OK E No CCE Ann López MD Mar 29, 2019 11:21
--- NOTE | 2019-03-29 11:40 | NUR ---
NURSE NOTES: Patient returned from procedure, Handoff report received from Vincent Hadier. Patient stable.
--- NOTE | 2019-03-29 12:08 | 48 Hour Post Anesthesia Eval ---
Post Anesthesia Evaluation Procedure: EGD Colonoscopy Date of Evaluation: Mar 29, 2019 Time of Evaluation: 12:07 Blood Pressure Systolic: 108 0: 72 Pulse Rate: 67 Respiratory Rate: 20 Temperature (Fahrenheit): 97.6 O2 Sat by Pulse Oximetry: 98 Airway: patent Nausea: No Vomiting: No Pain Intensity: 1 Hydration Status: adequate Cardiopulmonary Status: stable Mental Status/LOC: patient returned to baseline Follow-up Care/Observations: n/a Post-Anesthesia Complications: none Follow-up care needed: N/A Shamar Huynh MD Mar 29, 2019 12:08
--- NOTE | 2019-03-29 13:44 | NUR ---
RD ASSESSMENT & RECOMMENDATIONS SEE CARE ACTIVITY FOR COMPLETE ASSESSMENT DAILY ESTIMATED NEEDS: Needs based on Underweight, wound/ 48kg 30-35 kcals/kg 7004-5156 total kcals 1.25-1.5 g protein/kg 60-72 g total protein 25-30 mL/kg 1462-0484 total fluid mLs NUTRITION DIAGNOSIS: * Increased kcal and pro needs r/t underweight status, wound healing as evidenced by pt @71% [place] Body Weight, BMI underweight per guidelines, admitted w/ sacrum, BL heels, and BL buttocks non-blanchable erythemas. * Swallowing difficulty R/T dysphagia as evidenced by pt is PEG dep CURRENT TF:Glucerna 1.5 @ 40ml/hr x 20 hrs ENTERAL NUTRITION RECOMMENDATIONS: Nepro @ 45ml/hr x 20 hrs to provide 900ml, 1620kcal, 72g prot, 655ml free water * Rec TF change to Nepro -> H/o consistently elev K * Initiate Nepro @ 35ml/hr x 24 hrs, advance 10ml q 4-6 hrs to goal. * HOB over 30 degrees/ water flush per MD ADDITIONAL RECOMMENDATIONS: * Calibrated bedscale wt for accurate CBW -> weekly wt monitoring given underweight status * Monitor lytes closely (h/o consistently elev K) * Wound healing: add Vit C 250mg QD, Jermaine 1pkt BID . . .
--- NOTE | 2019-03-29 13:45 | NUR ---
Nurse Note handoff received from Frank Garcia RN
[2019-03-29] MEDS ORDERED: fentaNYL 100 mcg/2 mL IV ONE (13:56)
--- NOTE | 2019-03-29 17:45 | Procedure Note ---
DATE OF PROCEDURE: 03/29/2019 SURGEON: Kentrell Brooks M.D. REFERRING PHYSICIAN: Ann López M.D. PROCEDURE: Upper endoscopy with biopsy and colonoscopy. ANESTHESIA: Per Dr. Huynh. INSTRUMENT: Olympus adult flexible upper endoscope and colonoscope. INDICATION: GI bleeding. REASON FOR PROCEDURE: The procedure, risks, benefits, and possible consequences, including hemorrhage, aspiration, perforation and infection, and alternative treatments, were explained to the patient/legal guardian by Dr. Kentrell Brooks and the patient/legal guardian understood and accepted these risks. PROCEDURE IN DETAIL: After informed consent was obtained and the patient was adequately sedated, first Olympus upper endoscope was advanced from the mouth into the second portion of duodenum and retroflexion was performed in the stomach. The patient had evidence of hiatal hernia, small to medium. No evidence of any esophagitis status post seen on prior endoscopy procedures. In the stomach, there was evidence of diffuse gastritis. Random biopsy from antrum and body was obtained to rule out H. pylori infection. There is no evidence of active upper GI bleeding at this time. At this time, the upper endoscope was retrieved and the patient was turned over for colonoscopy. First, rectal exam was performed, which was positive for small internal hemorrhoids. Then, the scope was advanced from the rectum into the cecum documented by appendiceal orifice, ileocecal valve, and right upper quadrant palpation. Quality of prep was good. There is no evidence of any active bleeding at this time. The patient has some scattered diverticulosis. Retroflexion of rectum showed evidence of medium-sized internal hemorrhoids. The patient also had evidence of tattooing in the ascending colon, I am not sure what was the significance of that. SUMMARY OF FINDINGS: 1. A small/medium hiatal hernia. 2. Gastritis, status post biopsy. 3. Internal hemorrhoids. 4. Scattered diverticulosis. RECOMMENDATIONS: 1. Follow labs. 2. Resume G-tube feeding. 3. Monitor H and H. Transfuse as needed to keep hemoglobin above 8. I want to thank Dr. López for this kind referral. Kentrell Brooks M.D. DR: MELISSA JOB#: [id number] CC:
--- NOTE | 2019-03-29 19:31 | NUR ---
HAND-OFF: Report given to JORGE Lara.
--- NOTE | 2019-03-29 19:40 | NUR ---
NURSE NOTES: Received patient in bed, patient is A/O x1, confused, bedbound, on room air, g tube feeding with Glucerna 1.5 currently at 35 cc/hr, goal is to reach 50 cc/hr, tolerating well. No distress noted, VSS, afebrile, call light is within reach, bed is in low position, locked and alarm is on. Will continue to monitor for comfort and safety.
[2019-03-29] MEDS ORDERED: Epoetin Alfa-EPBX (NON ESRD)10,000 unit/ml vial SUBQ SCH (21:00)
[2019-03-30] VITALS: BP 123/59
[2019-03-30] MEDS: Sucralfate 1gm tab GT SCH ×4 (00:16→17:24)
[2019-03-30 04:00] VITALS: BP 120/58
[2019-03-30] MEDS: NovoLOG Insulin Flexpen SUBQ SCH ×4 (05:58→21:10)
--- NOTE | 2019-03-30 07:21 | NUR ---
HAND-OFF: Report given to Uma PATEL/ Иван PATEL.
--- NOTE | 2019-03-30 07:35 | NUR ---
NURSE NOTES: Received pt in bed, sleeping. On room air. GT feeding on at 35 ml/hr. No pain/distress noted. Call light within reach. Bed in the lowest position, locked and alarm on. Call light within reach. Will continue to monitor
[2019-03-30 07:42] LABS: EOSINOPHILS % (AUTO) 3.1 % (0.0-3.0); HEMATOCRIT 28.4 % (42.0-52.0); HEMOGLOBIN 9.1 G/DL (14.2-18.0); LYMPHOCYTES % (AUTO) 8.6 % (20.0-45.0); MEAN CORPUSCULAR VOLUME 94 FL (80-99); MONOCYTES % (AUTO) 8.3 % (1.0-10.0); NEUTROPHILS % (AUTO) 79.1 % (45.0-75.0); PLATELET COUNT 274 K/UL (150-450); RED BLOOD COUNT 3.02 M/UL (4.70-6.10); RED CELL DISTRIBUTION WIDTH 13.9 % (11.6-14.8); WHITE BLOOD COUNT 13.5 K/UL (4.8-10.8)
[2019-03-30 07:56] LABS: ANION GAP 11 mmol/L (5-15); BLOOD UREA NITROGEN 38 mg/dL (7-18); CALCIUM 8.6 MG/DL (8.5-10.1); CARBON DIOXIDE 22 MMOL/L (21-32); CHLORIDE 106 MMOL/L (98-107); CREATININE 1.3 MG/DL (0.55-1.30); POTASSIUM 4.8 MMOL/L (3.5-5.1); SODIUM 139 MMOL/L (136-145)
[2019-03-30 08:00] VITALS: BP 129/59
--- NOTE | 2019-03-30 10:00 | NUR ---
NURSE NOTES: Skin assessment and wound care done by wound care nurse and RN.
--- NOTE | 2019-03-30 11:01 | GI Progress Note ---
Assessment/Plan Problems: (1) G tube feedings ICD Codes: Z93.1 - Gastrostomy status SNOMED: 019264325, 526777483 (2) Anemia ICD Codes: D64.9 - Anemia, unspecified SNOMED: 754040580 (3) GI bleeding ICD Codes: K92.2 - Gastrointestinal hemorrhage, unspecified SNOMED: 80431886 (4) Dehydration ICD Codes: E86.0 - Dehydration SNOMED: 99412022 (5) Pancreatitis ICD Codes: K85.90 - Acute pancreatitis without necrosis or infection, unspecified SNOMED: 45349715 (6) Coffee ground emesis ICD Codes: K92.0 - Hematemesis SNOMED: 70464045, 007878139 (7) Gastroparesis ICD Codes: K31.84 - Gastroparesis SNOMED: 639809568 (8) Dehydration ICD Codes: E86.0 - Dehydration SNOMED: 69737945 Status: stable Status Narrative Discussed with Dr. Brooks. Assessment/Plan SUMMARY OF FINDINGS: 1. A small/medium hiatal hernia. 2. Gastritis, status post biopsy. 3. Internal hemorrhoids. 4. Scattered diverticulosis. RECOMMENDATIONS: 1. Follow labs. 2. Resume G-tube feeding. 3. Monitor H and H. Transfuse as needed to keep hemoglobin above 8. H2B follow up pathology The patient was seen and examined at bedside and all new and available data was reviewed in the patients chart. I agree with the above findings, impression and plan. (Patient seen earlier today. Signature stamp does not reflect patient encounter time.). - Kentrell Brooks MD Subjective Gastrointestinal/Abdominal: Reports: no symptoms Objective Last 24 Hour Vital Signs Date Time Temp Pulse Resp B/P (MAP) Pulse Ox O2 Delivery O2 Flow Rate FiO2 03/30/19 08:17 80 129/59 03/30/19 08:00 97.9 80 20 129/59 (82) 03/30/19 04:00 97.1 80 18 120/58 (78) 03/30/19 00:00 97.9 86 18 123/59 (80) 03/29/19 21:00 Room Air 03/29/19 20:00 97.6 84 19 125/58 (80) 03/29/19 16:00 98.2 80 18 130/60 (83) 100 03/29/19 12:08 67 20 98 03/29/19 12:00 97.4 78 142/68 (92) 03/29/19 11:30 97.8 76 16 154/69 100 Room Air 03/29/19 11:20 77 15 146/63 100 Nasal Cannula 3 03/29/19 11:15 74 14 144/68 100 Nasal Cannula 3 03/29/19 11:10 97.1 75 22 138/70 100 Nasal Cannula 3 03/29/19 11:10 74 20 98 Intake and Output 03/29/19 03/30/19 19:00 07:00 Intake Total 355 ml 610 ml Output Total 600 ml Balance -245 ml 610 ml Intake Free Water 60 ml 200 ml IV Total 200 ml Tube Feeding 95 ml 410 ml Output Urine Total 600 ml # Voids 2 # Bowel Movements 1 Laboratory Tests Test 03/30/19 07:16 White Blood Count 13.5 K/UL (4.8-10.8) H Red Blood Count 3.02 M/UL (4.70-6.10) L Hemoglobin 9.1 G/DL (14.2-18.0) L Hematocrit 28.4 % (42.0-52.0) L Mean Corpuscular Volume 94 FL (80-99) Mean Corpuscular Hemoglobin 30.1 PG (27.0-31.0) Mean Corpuscular Hemoglobin Concent 32.1 G/DL (32.0-36.0) Red Cell Distribution Width 13.9 % (11.6-14.8) Platelet Count 274 K/UL (150-450) Mean Platelet Volume 5.9 FL (6.5-10.1) L Neutrophils (%) (Auto) 79.1 % (45.0-75.0) H Lymphocytes (%) (Auto) 8.6 % (20.0-45.0) L Monocytes (%) (Auto) 8.3 % (1.0-10.0) Eosinophils (%) (Auto) 3.1 % (0.0-3.0) H Basophils (%) (Auto) 1.0 % (0.0-2.0) Sodium Level 139 MMOL/L (136-145) Potassium Level 4.8 MMOL/L (3.5-5.1) Chloride Level 106 MMOL/L (98-107) Carbon Dioxide Level 22 MMOL/L (21-32) Anion Gap 11 mmol/L (5-15) Blood Urea Nitrogen 38 mg/dL (7-18) H Creatinine 1.3 MG/DL (0.55-1.30) Estimat Glomerular Filtration Rate mL/min (>60) Glucose Level 91 MG/DL (74-106) Calcium Level 8.6 MG/DL (8.5-10.1) Height (Feet): 5 Height (Inches): 5.00 Weight (Pounds): 130 General Appearance: no apparent distress, thin Cardiovascular: normal rate Respiratory/Chest: normal breath sounds, no respiratory distress Abdominal Exam: normal bowel sounds, non tender, soft, GT site Extremities: non-tender Supa Owens NP Mar 30, 2019 11:01
[2019-03-30 12:00] VITALS: BP 138/62
--- NOTE | 2019-03-30 12:27 | NUR ---
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 RECTAL BLEEDING VS: BP 129/59, P 82,T 97.1, RR 18, SpO2 98 WBC 13.5 H&H 9.1/28.4, BUN 38, CHOLESTEROL 201 IS;SUCRALFATE 1gm NORVASC 5mg PREVACID 30mg LOPID 600mg MED/SURG STATUS
--- NOTE | 2019-03-30 15:09 | General Progress Note ---
Assessment/Plan Status: stable Assessment/Plan: Rectal Bleeding - recurrinG! GI to advise. Check CBC Hypernatremia, Hyperkalemia - on IVF . See orders. 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 Taper off IVF DW GI. Needs Urgent Colonoscopy... Awaiting............ Subjective Allergies: Coded Allergies: No Known Allergies (Verified , 12/28/06) Subjective Confused. Objective Last 24 Hour Vital Signs Date Time Temp Pulse Resp B/P (MAP) Pulse Ox O2 Delivery O2 Flow Rate FiO2 03/30/19 12:00 97.5 82 18 138/62 (87) 03/30/19 09:00 Room Air 03/30/19 08:17 80 129/59 03/30/19 08:00 97.9 80 20 129/59 (82) 03/30/19 04:00 97.1 80 18 120/58 (78) 03/30/19 00:00 97.9 86 18 123/59 (80) 03/29/19 21:00 Room Air 03/29/19 20:00 97.6 84 19 125/58 (80) 03/29/19 16:00 98.2 80 18 130/60 (83) 100 Intake and Output 03/29/19 03/30/19 19:00 07:00 Intake Total 355 ml 610 ml Output Total 600 ml Balance -245 ml 610 ml Intake Free Water 60 ml 200 ml IV Total 200 ml Tube Feeding 95 ml 410 ml Output Urine Total 600 ml # Voids 2 # Bowel Movements 1 Laboratory Tests 03/30/19 07:16: White Blood Count 13.5H, Red Blood Count 3.02L, Hemoglobin 9.1L, Hematocrit 28.4L, Mean Corpuscular Volume 94, Mean Corpuscular Hemoglobin 30.1, Mean Corpuscular Hemoglobin Concent 32.1, Red Cell Distribution Width 13.9, Platelet Count 274, Mean Platelet Volume 5.9L, Neutrophils (%) (Auto) 79.1H, Lymphocytes (%) (Auto) 8.6L, Monocytes (%) (Auto) 8.3, Eosinophils (%) (Auto) 3.1H, Basophils (%) (Auto) 1.0, Sodium Level 139, Potassium Level 4.8, Chloride Level 106, Carbon Dioxide Level 22, Anion Gap 11, Blood Urea Nitrogen 38H, Creatinine 1.3, Estimat Glomerular Filtration Rate , Glucose Level 91, Calcium Level 8.6 Height (Feet): 5 Height (Inches): 5.00 Weight (Pounds): 130 Objective CV RR Lungs CTA Abd SNT. PEG OK E No CCE Ann López MD Mar 30, 2019 15:09
--- NOTE | 2019-03-30 15:42 | NUR ---
NURSE NOTES: WOUND CARE FOLLOW-UP NOTES: Hyperpigmentation with dry peeling skin noted to sacrum .Non-tender when palpated. Small partial thickness perianal wound noted (L)0.3cm x (W)0.7cm. Small amt sanguineus exudate noted. Periwound without erythema. Non-blanchable erythema without induration or fluctuance noted to L heel. Non-tender when palpated.R heel soft but blanchable.Pt noted to have dry skin and frequently scratches at skin.Skin is also easily compromised .Pt noted to develop erythema to R and L trochanters when positioned on sides .Cavilon Skin Barrier applied to each trochanters and each covered with Optifoam drsgs.Skin moisturized with Remedy skin repair.- No other skin concerns noted. Wound prevention protocols continued as implemented. Pt positioned with pillows on sides with both heels off-loaded. Tx.Plan: Apply Moisture Barrier Paste to perianal wound with each incontinence care. Apply Moisture Barrier paste to sacrum . Cover with Optifoam drsg. Change every 3 days and prn. Apply Cavilon Skin Barrier to both heels. Cover each heel with Optifoam drsg. Change every 7 days and prn. Reposition at least every 2hours or as tolerated. Off-load heels with pillow.
[2019-03-30 16:00] VITALS: BP 129/60
--- NOTE | 2019-03-30 19:06 | NUR ---
HAND-OFF: Report given to Jane.
--- NOTE | 2019-03-30 19:07 | NUR ---
NURSE NOTES: Patient had brownish loose bowel movementx2. Patient is s/p colonoscopy yesterday on 03/29/19. Proper incontinent care done, skin intact, Will continue plan of care.
--- NOTE | 2019-03-30 19:24 | NUR ---
NURSE NOTES: Received patient in bed, asleep, no acute distress noted, VSS, afebrile, G tube feeding in place, tolerating well, no residual noted call light is within reach, bed is in low position, locked and alarm is on. Will continue to monitor for safety and comfort.
[2019-03-30 20:00] VITALS: BP 145/62
[2019-03-31 00:32] VITALS: BP 118/73
[2019-03-31] MEDS: Sucralfate 1gm tab GT SCH ×4 (00:47→18:04)
[2019-03-31 04:00] VITALS: BP 128/60
[2019-03-31] MEDS: NovoLOG Insulin Flexpen SUBQ SCH ×3 (05:57→16:30)
--- NOTE | 2019-03-31 07:09 | NUR ---
HAND-OFF: Report given to Uma PATEL/Иван PATEL.
--- NOTE | 2019-03-31 07:16 | NUR ---
NURSE NOTES: Received pt in bed. Sleeping. No s/s of pain or distress. G-tube feeding on @ 50. HOB elevated for aspiration precaution. Bed in the lowest position with side rails x2 raised. Alarm on and call light within reach. Will continue to monitor.
[2019-03-31 08:00] VITALS: BP 117/58
[2019-03-31 08:47] LABS: BASOPHILS % (AUTO) 0.8 % (0.0-2.0); EOSINOPHILS % (AUTO) 2.6 % (0.0-3.0); HEMATOCRIT 29.2 % (42.0-52.0); HEMOGLOBIN 9.5 G/DL (14.2-18.0); LYMPHOCYTES % (AUTO) 7.7 % (20.0-45.0); MEAN CORPUSCULAR VOLUME 94 FL (80-99); MONOCYTES % (AUTO) 8.6 % (1.0-10.0); NEUTROPHILS % (AUTO) 80.3 % (45.0-75.0); PLATELET COUNT 271 K/UL (150-450); WHITE BLOOD COUNT 14.6 K/UL (4.8-10.8)
[2019-03-31 09:02] LABS: ANION GAP 11 mmol/L (5-15); BLOOD UREA NITROGEN 41 mg/dL (7-18); CALCIUM 8.7 MG/DL (8.5-10.1); CARBON DIOXIDE 23 MMOL/L (21-32); CHLORIDE 104 MMOL/L (98-107); CREATININE 1.4 MG/DL (0.55-1.30); POTASSIUM 5.1 MMOL/L (3.5-5.1); SODIUM 137 MMOL/L (136-145)
--- NOTE | 2019-03-31 10:09 | NUR ---
NURSE NOTES: Patient had vomiting. Feeding formula like emesis and w/o blood x1. No s/s of aspiration. No changes in condition at this time. Oral care was given. Breathing is even and unlabored. No SOB. No congestion. HOB elevated. No residual from the GT feeding. [place] aware. Order to hold feeding for 8 hours. Will continue to monitor.
--- NOTE | 2019-03-31 10:49 | GI Progress Note ---
Assessment/Plan Problems: (1) G tube feedings ICD Codes: Z93.1 - Gastrostomy status SNOMED: 086636460, 702164253 (2) Anemia ICD Codes: D64.9 - Anemia, unspecified SNOMED: 542804976 (3) GI bleeding ICD Codes: K92.2 - Gastrointestinal hemorrhage, unspecified SNOMED: 97339290 (4) Dehydration ICD Codes: E86.0 - Dehydration SNOMED: 14367623 (5) Pancreatitis ICD Codes: K85.90 - Acute pancreatitis without necrosis or infection, unspecified SNOMED: 59151919 (6) Coffee ground emesis ICD Codes: K92.0 - Hematemesis SNOMED: 74545563, 900176913 (7) Gastroparesis ICD Codes: K31.84 - Gastroparesis SNOMED: 970331521 (8) Dehydration ICD Codes: E86.0 - Dehydration SNOMED: 24366747 Status: unchanged Status Narrative Discussed with Dr. Brooks. Assessment/Plan SUMMARY OF FINDINGS: 1. A small/medium hiatal hernia. 2. Gastritis, status post biopsy. 3. Internal hemorrhoids. 4. Scattered diverticulosis. RECOMMENDATIONS: Hold feeding for approximately 8 hours, then restart Reglan ATC Monitor H&H, transfuse as necessary to keep hemoglobin above 8 PPI Follow-up pathology The patient was seen and examined at bedside and all new and available data was reviewed in the patients chart. I agree with the above findings, impression and plan. (Patient seen earlier today. Signature stamp does not reflect patient encounter time.). - Kentrell Brooks MD Subjective Gastrointestinal/Abdominal: Reports: no symptoms Subjective limited Objective Last 24 Hour Vital Signs Date Time Temp Pulse Resp B/P (MAP) Pulse Ox O2 Delivery O2 Flow Rate FiO2 03/31/19 09:00 Room Air 03/31/19 08:54 92 117/58 03/31/19 08:00 97.8 92 18 117/58 (77) 100 03/31/19 04:00 97.9 86 20 128/60 (82) 03/31/19 00:32 98.4 85 22 118/73 (88) 03/30/19 21:00 Room Air 03/30/19 20:00 98.5 80 24 145/62 (89) 03/30/19 16:00 97.2 85 20 129/60 (83) 100 03/30/19 12:00 97.5 82 18 138/62 (87) Intake and Output 03/30/19 03/31/19 19:00 07:00 Intake Total 720 ml 500 ml Output Total 250 ml 402 ml Balance 470 ml 98 ml Intake Free Water 320 ml 100 ml Tube Feeding 400 ml 400 ml Output Urine Total 250 ml 400 ml Stool Total 2 ml # Voids 1 # Bowel Movements 2 Laboratory Tests Test 03/31/19 07:53 White Blood Count 14.6 K/UL (4.8-10.8) H Red Blood Count 3.10 M/UL (4.70-6.10) L Hemoglobin 9.5 G/DL (14.2-18.0) L Hematocrit 29.2 % (42.0-52.0) L Mean Corpuscular Volume 94 FL (80-99) Mean Corpuscular Hemoglobin 30.6 PG (27.0-31.0) Mean Corpuscular Hemoglobin Concent 32.4 G/DL (32.0-36.0) Red Cell Distribution Width 14.0 % (11.6-14.8) Platelet Count 271 K/UL (150-450) Mean Platelet Volume 5.9 FL (6.5-10.1) L Neutrophils (%) (Auto) 80.3 % (45.0-75.0) H Lymphocytes (%) (Auto) 7.7 % (20.0-45.0) L Monocytes (%) (Auto) 8.6 % (1.0-10.0) Eosinophils (%) (Auto) 2.6 % (0.0-3.0) Basophils (%) (Auto) 0.8 % (0.0-2.0) Sodium Level 137 MMOL/L (136-145) Potassium Level 5.1 MMOL/L (3.5-5.1) Chloride Level 104 MMOL/L (98-107) Carbon Dioxide Level 23 MMOL/L (21-32) Anion Gap 11 mmol/L (5-15) Blood Urea Nitrogen 41 mg/dL (7-18) H Creatinine 1.4 MG/DL (0.55-1.30) H Estimat Glomerular Filtration Rate mL/min (>60) Glucose Level 128 MG/DL (74-106) H Calcium Level 8.7 MG/DL (8.5-10.1) Height (Feet): 5 Height (Inches): 5.00 Weight (Pounds): 130 General Appearance: WD/WN, no apparent distress, alert Cardiovascular: normal rate Respiratory/Chest: normal breath sounds, no respiratory distress Abdominal Exam: normal bowel sounds, non tender, soft, GT site Extremities: non-tender Objective 03/31/2019 reported vomiting per RN. No coffee-ground or hematemesis. Supa Owens [employer] O[employer]ATOR Mar 31, 2019 10:49
[2019-03-31 12:00] VITALS: BP 115/62
[2019-03-31] MEDS: Metoclopramide 10mg/10ml Liq NG SCH ×2 (12:24→18:04)
--- NOTE | 2019-03-31 14:48 | General Progress Note ---
Assessment/Plan Status: unchanged Assessment/Plan: Rectal Bleeding - recurrinG! GI to advise. Check CBC Hypernatremia, Hyperkalemia - on IVF . See orders. 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 Taper off IVF DW GI. Needs Urgent Colonoscopy... Awaiting............ No plans by GI DC to [facility] Subjective Allergies: Coded Allergies: No Known Allergies (Verified , 12/28/06) Subjective Confused. Objective Last 24 Hour Vital Signs Date Time Temp Pulse Resp B/P (MAP) Pulse Ox O2 Delivery O2 Flow Rate FiO2 03/31/19 12:00 98.0 95 18 115/62 (79) 100 03/31/19 09:00 Room Air 03/31/19 08:54 92 117/58 03/31/19 08:00 97.8 92 18 117/58 (77) 100 03/31/19 04:00 97.9 86 20 128/60 (82) 03/31/19 00:32 98.4 85 22 118/73 (88) 03/30/19 21:00 Room Air 03/30/19 20:00 98.5 80 24 145/62 (89) 03/30/19 16:00 97.2 85 20 129/60 (83) 100 Intake and Output 03/30/19 03/31/19 19:00 07:00 Intake Total 720 ml 500 ml Output Total 250 ml 402 ml Balance 470 ml 98 ml Intake Free Water 320 ml 100 ml Tube Feeding 400 ml 400 ml Output Urine Total 250 ml 400 ml Stool Total 2 ml # Voids 1 # Bowel Movements 2 Laboratory Tests 03/31/19 07:53: White Blood Count 14.6H, Red Blood Count 3.10L, Hemoglobin 9.5L, Hematocrit 29.2L, Mean Corpuscular Volume 94, Mean Corpuscular Hemoglobin 30.6, Mean Corpuscular Hemoglobin Concent 32.4, Red Cell Distribution Width 14.0, Platelet Count 271, Mean Platelet Volume 5.9L, Neutrophils (%) (Auto) 80.3H, Lymphocytes (%) (Auto) 7.7L, Monocytes (%) (Auto) 8.6, Eosinophils (%) (Auto) 2.6, Basophils (%) (Auto) 0.8, Sodium Level 137, Potassium Level 5.1, Chloride Level 104, Carbon Dioxide Level 23, Anion Gap 11, Blood Urea Nitrogen 41H, Creatinine 1.4H, Estimat Glomerular Filtration Rate , Glucose Level 128H, Calcium Level 8.7 Height (Feet): 5 Height (Inches): 5.00 Weight (Pounds): 130 Objective CV RR Lungs CTA Abd SNT. PEG OK E No CCE Ann López MD Mar 31, 2019 14:48
[2019-03-31 16:00] VITALS: BP 126/57
--- NOTE | 2019-03-31 16:20 | NUR ---
DISCHARGE PLANNED PT. [facility] DC [facility] [address]OM [address] T [phone] FOR NURSE TO NURSE REPORT [facility] WILL RISK [facility]NAG[facility] AT [phone]
--- NOTE | 2019-03-31 17:30 | NUR ---
NURSE NOTES: [facility] will be late due to traffic.Transfer report given to Rn @ the facility Brianna PATEL.
--- NOTE | 2019-03-31 18:00 | NUR ---
NURSE NOTES: Patient had no episodes of vomiting after reglan. Restarted GT feeding, no residual. HOB elevated.
--- NOTE | 2019-03-31 19:37 | NUR ---
HAND-OFF: Report given to JORGE Alexander .
--- NOTE | 2019-04-01 11:52 | Discharge Summary ---
Discharge Summary Discharge Summary _ DATE OF ADMISSION: 03/26/2019 DATE OF DISCHARGE: 03/31/2019 DISCHARGED BY: Dr. Ann López CONSULTANTS: Dr. Kentrell Brooks BRIEF HOSPITAL COURSE: Patient is a 83-year-old [place] male, who was frequently admitted to the hospital for different reasons. He has history of organic brain syndrome, recurrent gastroesophagitis, hyperkalemia, chronic kidney disease, anemia of CKD , type 2 diabetes mellitus and hypertensive cardiovascular disease. He was taken to ED via EMS for reports of diarrhea and possible blood in the stool from nursing facility. On arrival to ED, vital signs were stable. Blood work showed WBC 15. Hemoglobin was 12 and hematocrit 38. Sodium was 147, potassium 5.6, BUN was elevated to 100 and creatinine 1.9. Troponin was negative. He was then admitted for evaluation of GI bleed and anemia. He was given IV hydration. Hemoglobin levels were trended. GI was consulted. Patient had endoscopy done on February 26, 2019 that showed evidence of gastritis at that time had GJ tube conversion. G-tube feeding was resumed. He was given proton pump inhibitors. He was continued on Carafate. Stool was checked for OB. He had recurrent dysnatremia due to chronic interstitial nephritis. He was tapered off IVF. He had multiple bouts of bright red blood per rectum. Patient had active GI bleed. Patient needed urgent endoscopy. On 03/29/2019, upper and lower endoscopy was done. Findings showed a small/medium hiatal hernia; gastritis; internal hemorrhoids and scattered diverticulosis. There was no evidence of any active bleeding. He tolerated procedure well. He was continued on proton pump inhibitors. He was monitored for any further GI bleed. Pathology result was negative for H. pylori. H&H was stable. He was eventually discharged back to SNF. FINAL DIAGNOSES: Recurring GI bleed Hypernatremia Hyperkalemia Recurrent dysnatremia due to chronic interstitial nephritis Status post EGD and colonoscopy with findings of hiatal hernia; gastritis; internal hemorrhoids and scattered diverticulosis DISPOSITION: Patient was discharged to a SNF. DISCHARGE MEDICATIONS: Refer to Discharge Medication List. I have been assigned to complete a discharge summary on this account, I was not involved with the patient's management.--KAY Barrios Jacqueline Robles NP Apr 01, 2019 11:52
== END 2019-03-31 20:15 | DRG 378 ==
LOC: EDBD 12:38 → EDBEDREQ 12:53 → EMR 13:10 → 4E 13:19 → EDBEDREQ 13:44 → OBSVTOIN 03-26 15:46
PROC: 0DB68ZX Excision of Stomach, Via Natural or Artificial Opening Endoscopic, Diagnostic (ICD-10-PCS; principal; 2019-03-29 10:44)
PROC: 0DJD8ZZ Inspection of Lower Intestinal Tract, Via Natural or Artificial Opening Endoscopic (ICD-10-PCS; principal; 2019-03-29 10:44)
PROC: 0DB78ZX Excision of Stomach, Pylorus, Via Natural or Artificial Opening Endoscopic, Diagnostic (ICD-10-PCS; principal; 2019-03-29 10:44)
DX: K92.2 Gastrointestinal hemorrhage, unspecified (principal); E87.0 Hyperosmolality and hypernatremia; N17.9 Acute kidney failure, unspecified; N11.9 Chronic tubulo-interstitial nephritis, unspecified; Z43.1 Encounter for attention to gastrostomy; E87.5 Hyperkalemia; K44.9 Diaphragmatic hernia without obstruction or gangrene; K29.70 Gastritis, unspecified, without bleeding; K64.8 Other hemorrhoids; E11.9 Type 2 diabetes mellitus without complications; R13.10 Dysphagia, unspecified; K57.90 Diverticulosis of intestine, part unspecified, without perforation or abscess without bleeding; F09 Unspecified mental disorder due to known physiological condition
CPT/HCPCS: 36415; 71045; 80048; 80053; 80061; 81003; 82270; 82550; 82553; 82962; 83690; 83735; 84484; 85007; 85025; 87081; 87086; 87181; 87324; 93005; 94003; 94150; 96361; 99284; J1815